=== PATIENT | female | born 1940 | race Two or more races ===

== ENCOUNTER → 2020-06-15 13:18 | Outpatient (BNVA) | payer MEDICARE, SELFPAY | PROVIDERS: PCP Internal Medicine; Referring Provider Internal Medicine; Visit Provider Internal Medicine | DX: J44.9 Chronic obstructive pulmonary disease, unspecified (principal); J98.4 Other disorders of lung; Z79.899 Other long term (current) drug therapy | CPT/HCPCS: 99212 ==

== ENCOUNTER 2020-11-04 17:37 | Emergency (ER) | payer MEDICARE, SELFPAY ==
--- NOTE | ~2020-11-04 | XR_ITS ---
EXAMINATION: XR RIBS, LEFT CLINICAL INFORMATION: Fall with rib pain COMPARISON: Chest radiograph 01/15/2019 TECHNIQUE: 3 views of the left ribs were obtained. FINDINGS: The lungs are clear. Heart size is normal. Cardiomediastinal silhouette is stable. No acute displaced rib fractures. Cholecystectomy clips. Calcifications aortic knob. XR/XR ribs LT min 3V w CXR1V IMPRESSION: No radiographic evidence of acute displaced rib fracture.
[2020-11-04 18:12] VITALS: PULSE 63; RESP 16; TEMP 36.6; O2SAT 96; BMI 30.7
--- NOTE | 2020-11-04 19:48 | ED.FALL ---
HPI - Fall General Chief Complaint: Fall Stated Complaint: SIDE PAIN (FALL) Time Seen by Provider: 11/04/20 19:46 Source: patient Mode of arrival: ambulatory Limitations: no limitations History of Present Illness HPI Narrative: States she got up out of bed to answer a phone call she was turning and lost her footing fell onto her left side hitting the left-sided chest on the ground. States pain on the left upper aspect of the chest. Denies any other injury, no prodromal symptoms, head or neck injury. MD complaint: fall Fall from: standing Fall witnessed: yes, by family Place fall occurred: home Loss of consciousness: none Prolonged down time: no Symptoms prior to fall: none Context: tripped/slipped Location of injury: chest Related Data Home Medications Medication Instructions Recorded Confirmed abatacept 125 mg/mL subcutaneous mg SUBCUT .monthly ml 06/15/20 auto-injector albuterol sulfate 2.5 mg INHALATION Q4-6H PRN 06/15/20 albuterol sulfate 90 mcg/actuation 0 mcg INHALATION 06/15/20 aerosol inhaler alcohol swabs 0 pad TOPICAL 06/15/20 aspirin 81 mg tablet,delayed 81 mg PO DAILY 06/15/20 release blood sugar diagnostic #10 ea 06/15/20 cetirizine 10 mg tablet 10 mg PO DAILY 06/15/20 chlorthalidone 25 mg tablet 0 mg PO 06/15/20 folic acid 1 mg tablet 1 mg PO DAILY 06/15/20 glipizide 10 mg tablet 10 mg PO BID 06/15/20 inhalat.spacing dev,large mask #1 ea 06/15/20 lancets 30 gauge #100 ea 06/15/20 magnesium oxide 400 mg (241.3 mg 400 mg PO BID 06/15/20 magnesium) tablet metformin 1,000 mg tablet 1,000 mg PO BID 06/15/20 methotrexate sodium 2.5 mg tablet 20 mg PO QWEEK 06/15/20 omeprazole 20 mg capsule,delayed 20 mg PO DAILY 06/15/20 release omeprazole 20 mg tablet,delayed 20 mg PO DAILY 06/15/20 release pravastatin 20 mg tablet mg PO 06/15/20 prednisone 5 mg tablet 5 mg PO DAILY 06/15/20 verapamil 300 mg capsule 24hr 300 mg PO DAILY 06/15/[address],ext.release Previous Rx's Medication Instructions Recorded lidocaine 1 patch TOPICAL Q24H PRN #15 ea 11/04/20 Allergies Allergy/AdvReac Type Severity Reaction Status Date / Time latex [LATEX] Allergy Unknown RASH Verified 06/15/20 13:28 pineapple [PINEAPPLE] Allergy Unknown HIVES Verified 06/15/20 13:28 enalaprilat [From Vasotec] AdvReac Mild Unknown Verified 06/15/20 13:28 Review of Systems Review of Systems: Constitutional: No Weight loss, No Fever, No Chills, No Night Sweats, No Fatigue, No Malaise ENT/Mouth: No Hearing loss, No Ear Pain, No Nasal Congestion, No Sinus Pain, No Hoarseness, No sore throat, No Rhinorrhea, No Swallowing Difficulty Eyes: No Eye Pain, No Swelling, No Redness, No Foreign Body, No Discharge, No Vision Changes Cardiovascular: No Chest Pain, No SOB, No Dyspnea on Exertion, No Orthopnea, No Edema, No Palpitations Respiratory: No Cough, No Sputum, No Wheezing, No Smoke Exposure, No Dyspnea Gastrointestinal: No Nausea, No Vomiting, No Diarrhea, No Constipation, No abdominal Pain, No Hematochezia, No Melena Genitourinary: no irregular bleeding, No Dysuria, No Urinary Frequency, No Hematuria, No Urinary Incontinence, No Urgency, No Flank Pain, No Urinary Flow Changes, No Hesitancy Musculoskeletal: No joint pain, No Myalgias, No Joint Swelling, left-sided chest wall pain. Skin: No Skin Lesions, No rash Neuro: No Weakness, No Numbness, No Paresthesias, No Loss of Consciousness, No Dizziness, No Headache Psych: No Social Issues Heme/Lymph: No Bruising, No Bleeding,No Lymphadenopathy Endocrine: No Polyuria, No Polydipsia, No Temperature Intolerance Yes all other systems are reviewed and are negative FOR[facility] Past Medical History Medical History COPD (chronic obstructive pulmonary disease) Restrictive lung disease Social History Social History Advance Directives: No Advance Directives Information Provided: Yes Physical Exam Vital Signs: Vital Signs: Last Vital Signs Temp 97.9 F 11/04/20 18:12 Pulse 63 11/04/20 18:12 Resp 16 11/04/20 18:12 Pulse Ox 96 04/09/21 18:12 Body Mass Index 30.7 Reviewed Const: General: cooperative and healthy appearing; No acute distress or intoxicated appearing Nutritional Appearance: average body habitus Orientation/consciousness: patient oriented x3 HENMT: Head: Yes normal to inspection Ears: hearing grossly normal bilaterally Eyes: General: appearance normal, both eyes and all related structures Visual Dutta: normal visual dutta by confrontation Neck: Neck: Yes normal visual inspection, No positive Brudzinski's sign, No positive Kernig's sign and No tender Thyroid: Thyroid normal Chest: Chest palpation & inspection: normal inspection of the chest and tenderness costochondral junction Chest/axillae images: 1. TTP, no crepitus, ecchymosis or noticeable injury. Resp: Effort & Inspection: normal respiratory effort Cardio: Jugular venous distension: no JVD GI: Inspection: Yes normal to inspection Percussion: Yes normal to percussion Auscultation: normal bowel sounds : General: Yes no CVA tenderness Back/Spine/Pelvis: Back: no CVA tenderness Skin: General skin exam: no rashes or lesions noted Neuro: General: patient oriented x3 Extrem: General: Yes normal to inspection MDM - Fall Medical Records Attestation: I reviewed the patient's medical records. Lab Data Attestation: I reviewed the patient's lab results. Imaging Data Chest with ribs: Radiologist's impression: [address] [id number] ReportSigned Patient: Leann Almanzar CMR#: [id number]: [id number]/Sex: 80 / FADM Date: 11/04/20Loc: HO.EDAttending Dr: Ordering Physician: Generic ED Physician Date of Service: 11/04/20 Procedure(s): XR ribs LT min 3V w CXR1V Accession Number(s): [id number] cc: Generic ED Physician~ EXAMINATION: XR RIBS, LEFT CLINICAL INFORMATION: Fall with rib pain COMPARISON: Chest radiograph 01/15/2019 TECHNIQUE: 3 views of the left ribs were obtained. FINDINGS: The lungs are clear. Heart size is normal. Cardiomediastinal silhouette is stable. No acute displaced rib fractures. Cholecystectomy clips. Calcifications aortic knob. XR/XR ribs LT min 3V w CXR1V IMPRESSION: No radiographic evidence of acute displaced rib fracture. Dictated By:YARA GONZALES MDSigned By:<Electronically signed by YARA GONZALES MD in OV>11/04/201838 DD/ TD/TT: Asset Protection Manager: SB Discharge Plan Discharge Clinical Impression: Chest wall contusion Patient Disposition: Home, Self-Care Instructions: Fall Prevention for Older Adults (ED), Rib Contusion (ED) Additional Instructions: Warm compresses Gentle stretching Topical pain patches as needed for pain discomfort Tylenol for pain Return if any concerns or worsening symptoms Home safety as reviewed Thank you Prescriptions: New lidocaine 4 % adhesive patch,medicated 1 patch topical Q24H PRN (Reason: pain) Qty: 15 RF: 0 No Action (DME) lancets 30 gauge misc See Rx Instructions ea .ROUTE .MEDSUPPLY Qty: 100 RF: 0 alcohol swabs Pads, Medicated 0 pad topical RF: 0 pravastatin 20 mg tablet PO RF: 0 folic acid 1 mg tablet 1 mg PO DAILY RF: 0 verapamil 300 mg capsule, [address] 300 mg PO DAILY RF: 0 metformin 1,000 mg tablet 1,000 mg PO BID RF: 0 methotrexate sodium 2.5 mg tablet 20 mg PO QWEEK RF: 0 magnesium oxide 400 mg (241.3 mg magnesium) tablet 400 mg PO BID RF: 0 aspirin 81 mg tablet,delayed release (DR/EC) 81 mg PO DAILY RF: 0 chlorthalidone 25 mg tablet 0 mg PO RF: 0 prednisone 5 mg tablet 5 mg PO DAILY RF: 0 glipizide 10 mg tablet 10 mg PO BID RF: 0 cetirizine 10 mg tablet 10 mg PO DAILY RF: 0 (DME) Procare Spacer With Adult Mask Spacer See Rx Instructions ea .ROUTE .MEDSUPPLY Qty: 1 RF: 0 albuterol sulfate 90 mcg/actuation HFA aerosol inhaler 0 mcg inhalation RF: 0 omeprazole 20 mg tablet,delayed release (DR/EC) 20 mg PO DAILY RF: 0 (DME) FreeStyle Lite Strips Strip See Rx Instructions ea Not Applicable .MEDSUPPLY Qty: 10 RF: 0 omeprazole 20 mg capsule,delayed release(DR/EC) 20 mg PO DAILY RF: 0 albuterol sulfate 2.5 mg /3 mL (0.083 %) solution for nebulization 2.5 mg inhalation Q4-6H PRNRF: 0 abatacept 125 mg/mL auto-injector subcut .monthly RF: 0 Referrals: Britney Lindsey DO [Primary Care Provider] - 1 week
[2020-11-04 20:06] VITALS: BP 140/51; PULSE 55; RESP 17; O2SAT 97
[2020-11-04] MEDS: Acetaminophen 325 MG TABLET 650 MG PO (20:09)
[2020-11-04] MEDS: Lidocaine 4 % Patch ADH..PATCH 1 PATCH TRANSDERMA (20:09)
== END 2020-11-04 20:19 | disposition home or self-care (01) ==
PROVIDERS: Emergency Provider Internal Medicine; PCP Internal Medicine
DX: S20.212A Contusion of left front wall of thorax, initial encounter (principal); W01.0XXA Fall on same level from slipping, tripping and stumbling without subsequent striking against object, initial encounter; Y93.89 Activity, other specified; Y92.013 Bedroom of single-family (private) house as the place of occurrence of the external cause; Y99.9 Unspecified external cause status
CPT/HCPCS: 71101; 99283; 99284

== ENCOUNTER → 2020-12-20 13:22 | Outpatient (BNVA) | payer MEDICARE, SELFPAY | PROVIDERS: PCP Internal Medicine; Visit Provider Internal Medicine | DX: J44.9 Chronic obstructive pulmonary disease, unspecified (principal); J98.4 Other disorders of lung | CPT/HCPCS: 99212 ==

== ENCOUNTER → 2021-02-14 13:55 | Outpatient (BNV) | payer MEDICARE, SELFPAY | PROVIDERS: PCP Internal Medicine; Visit Provider Internal Medicine | DX: D47.1 Chronic myeloproliferative disease (principal); J98.4 Other disorders of lung; D50.9 Iron deficiency anemia, unspecified | CPT/HCPCS: 99213; 99214; G2211 ==

== ENCOUNTER 2021-02-18 16:58 | Emergency (ER) | payer MEDICARE, SELFPAY ==
--- NOTE | ~2021-02-18 | XR_ITS ---
EXAMINATION: XR SHOULDER, LEFT CLINICAL INFORMATION: Shoulder pain following trauma in a fall COMPARISON: Rib radiographs 11/04/2020 TECHNIQUE: AP external rotation, Grashey, and scapular Y views of the left shoulder. FINDINGS: There is no fracture or dislocation. The glenohumeral joint appears intact. There is degenerative change at the acromioclavicular joint. The periarticular soft tissues appear unremarkable. There is mottled lucency through the proximal and mid shaft of the humerus which appears different from other osseous structures and more pronounced than on prior radiographic examination. XR/XR shoulder LT min 2V IMPRESSION: No fracture or dislocation. Mottled lucency through the shaft of the left humerus is suspicious for a progressive infiltrative process. Clinical correlation is recommended. Further evaluation by bone scan is suggested.
--- NOTE | ~2021-02-18 | XR_ITS ---
EXAMINATION: XR CHEST CLINICAL INFORMATION: Pain. COMPARISON: Chest radiograph dated 01/15/2018. TECHNIQUE: Frontal view of the chest was obtained. FINDINGS: Normal lung volumes. No consolidation or pulmonary edema. No pneumothorax or pleural effusion. Cardiomediastinal silhouette within normal limits. No acute osseous abnormality. XR/XR chest 1V IMPRESSION: Clear lungs. No consolidation.
[2021-02-18 17:34] VITALS: BP 131/53; PULSE 60; RESP 18; TEMP 35.6; O2SAT 98; BMI 32.7
[2021-02-18 18:48] VITALS: BP 134/78; PULSE 64; RESP 18; TEMP 36.4; O2SAT 98
--- NOTE | 2021-02-18 19:00 | PC.NURSE ---
pt was able to transfer from wheelchair to bed without difficulty with help of daughter.
--- NOTE | 2021-02-18 20:07 | ED_ITS ---
HPI - General Adult General Chief complaint: Fall Stated complaint: sholder pain Time Seen by Provider: 02/18/21 19:20 History of Present Illness HPI narrative: Patient complains of left shoulder and left upper back and trapezius pain for several weeks, patient had a trip and fall onto her left side 3 days ago, but the pain had been going for several weeks before that. The pain did get worse after the fall, there are no other symptoms no numbness no weakness no headache no chest pain no neck pain, the fall at home was a simple trip and fall where she remembers everything and never had preceding dizziness she did not hit her head no loss of consciousness no chest pain no palpitation no fainting Related Data Home Medications Medication Instructions Recorded Confirmed abatacept 125 mg/mL subcutaneous 125 mg SUBCUT .monthly ml 06/15/20 02/14/21 auto-injector albuterol sulfate 2.5 mg INHALATION Q4-6H PRN 06/15/20 02/14/21 alcohol swabs 1 pad TOPICAL DAILY 06/15/20 02/14/21 aspirin 81 mg tablet,delayed 81 mg PO DAILY 06/15/20 02/14/21 release blood sugar diagnostic #10 ea 06/15/20 02/14/21 cetirizine 10 mg tablet 10 mg PO DAILY 06/15/20 02/14/21 folic acid 1 mg tablet 1 mg PO DAILY 06/15/20 02/14/21 glipizide 10 mg tablet 10 mg PO BID 06/15/20 02/14/21 inhalat.spacing dev,large mask #1 ea 06/15/20 02/14/21 lancets 30 gauge #100 ea 06/15/20 02/14/21 magnesium oxide 400 mg (241.3 mg 400 mg PO BID 06/15/20 02/14/21 magnesium) tablet metformin 1,000 mg tablet 1,000 mg PO BID 06/15/20 02/14/21 methotrexate sodium 2.5 mg tablet 20 mg PO QWEEK 06/15/20 02/14/21 omeprazole 20 mg capsule,delayed 20 mg PO DAILY 06/15/20 02/14/21 release prednisone 5 mg tablet 5 mg PO DAILY 06/15/20 02/14/21 verapamil 300 mg capsule 24hr 300 mg PO DAILY 06/15/20 02/14/[address],ext.release albuterol sulfate 90 mcg/actuation 2 inh INHALATION Q6-8H PRN g 12/20/20 02/14/21 aerosol inhaler chlorthalidone 25 mg tablet 25 mg PO DAILY tab 12/20/20 02/14/21 pravastatin 20 mg tablet 20 mg PO DAILY tab 12/20/20 02/14/21 Previous Rx's Medication Instructions Recorded acetaminophen 1,000 mg PO QID PRN #30 tab 02/18/21 lidocaine 1 patch TOPICAL DAILY PRN #15 ea 02/18/21 Allergies Allergy/AdvReac Type Severity Reaction Status Date / Time latex [LATEX] Allergy Unknown RASH Verified 12/20/20 13:31 pineapple [PINEAPPLE] Allergy Unknown HIVES Verified 12/20/20 13:31 enalaprilat [From Vasotec] AdvReac Mild Unknown Verified 12/20/20 13:31 Review of Systems Review of Systems: Positive for left shoulder pain Negatives are no fever no chills no dizziness no weakness no fainting no feeling faint no headache no head injury no neck pain no numbness weakness or tingling no chest pain no shortness of breath no abdominal pain no nausea vomiting no skin rash Yes all other systems are reviewed and are negative [facility] Past Medical History Source: nursing notes reviewed Medical History COPD (chronic obstructive pulmonary disease) Restrictive lung disease Social History Social History Advance Directives: No Advance Directives Information Provided: No Physical Exam Vital Signs: Vital Signs: Last Vital Signs Temp 97.6 F 02/18/21 18:48 Pulse 64 02/18/21 18:48 Resp 18 02/18/21 18:48 BP 134/78 02/18/21 18:48 Pulse Ox 98 02/18/21 18:48 Body Mass Index 32.7 General appearance is no acute distress, calm and cooperative Head is normocephalic atraumatic The neck is supple and nontender The chest is clear to auscultation bilateral with symmetrical full equal breath sounds Heart no murmur auscultated Abdomen soft nontender Extremities there is tenderness to the anterior left shoulder and the deltoid area as well as the posterior shoulder area, skin is normal, there is no rash no redness no wound, motor and sensation are intact and symmetrical distal, neurovascular intact distal Course Course Course Narrative: X-ray of the chest was normal X-ray of the left shoulder we had concerning lucencies that were concerning for possible malignancy and this was discussed at length with the patient and her daughter who go to [facility] for primary care They will follow on Saturday with [place] for necessary further evaluation and they are informed if for some reason they cannot be seen by their primary doctor that they can return to the ER in we will try to facilitate some other follow up They are aware that this should be seen and evaluated next week at the latest Discharge Plan Discharge Clinical Impression: Mass of joint of left shoulder Patient Disposition: Home, Self-Care Additional Instructions: X-ray was concerning for abnormalities in the joint which could be a cancer in the bone It is very important follow closely with primary doctor early next week for referral, and further evaluation to make a diagnosis Return to ER any time for any worse condition or concerns If your doctor has left the practice and it is impossible for you to be followed there and you cannot get an appointment with primary care doctor return to the ER next week during business hours and we will see if we can arrange follow-up IT IS VERY IMPORTANT TO FOLLOW-UP NEXT WEEK TO INITIATE EVALUATION FOR POSSIBLE CANCER Prescriptions: New acetaminophen 500 mg tablet 1,000 mg PO QID PRN (Reason: pain) Qty: 30 RF: 0 lidocaine 5 % adhesive patch,medicated 1 patch topical DAILY PRN (Reason: Left shoulder pain) Qty: 15 RF: 0 No Action (DME) lancets 30 gauge misc See Rx Instructions ea .ROUTE .MEDSUPPLY Qty: 100 RF: 0 alcohol swabs Pads, Medicated 1 pad topical DAILY RF: 0 folic acid 1 mg tablet 1 mg PO DAILY RF: 0 verapamil 300 mg capsule, [address] 300 mg PO DAILY RF: 0 metformin 1,000 mg tablet 1,000 mg PO BID RF: 0 methotrexate sodium 2.5 mg tablet 20 mg PO QWEEK RF: 0 magnesium oxide 400 mg (241.3 mg magnesium) tablet 400 mg PO BID RF: 0 aspirin 81 mg tablet,delayed release (DR/EC) 81 mg PO DAILY RF: 0 prednisone 5 mg tablet 5 mg PO DAILY RF: 0 glipizide 10 mg tablet 10 mg PO BID RF: 0 cetirizine 10 mg tablet 10 mg PO DAILY RF: 0 (DME) Procare Spacer With Adult Mask Spacer See Rx Instructions ea .ROUTE .MEDSUPPLY Qty: 1 RF: 0 (DME) FreeStyle Lite Strips Strip See Rx Instructions ea Not Applicable .MEDSUPPLY Qty: 10 RF: 0 omeprazole 20 mg capsule,delayed release(DR/EC) 20 mg PO DAILY RF: 0 albuterol sulfate 2.5 mg /3 mL (0.083 %) solution for nebulization 2.5 mg inhalation Q4-6H PRN (Reason: Wheezing) RF: 0 abatacept 125 mg/mL auto-injector 125 mg subcut .monthly RF: 0 albuterol sulfate 90 mcg/actuation HFA aerosol inhaler 2 inh inhalation Q6-8H PRN (Reason: Wheezing) RF: 0 chlorthalidone 25 mg tablet 25 mg PO DAILY RF: 0 pravastatin 20 mg tablet 20 mg PO DAILY RF: 0
[2021-02-18] MEDS: Lidocaine 4 % Patch ADH..PATCH 1 PATCH TRANSDERMA (20:55)
[2021-02-18] MEDS: Acetaminophen 325 MG TABLET 975 MG PO (20:55)
== END 2021-02-18 21:02 | disposition home or self-care (01) ==
PROVIDERS: Emergency Provider Emergency Medicine; PCP Internal Medicine
DX: M25.812 Other specified joint disorders, left shoulder (principal); M25.512 Pain in left shoulder
CPT/HCPCS: 71045; 73030; 99283

== ENCOUNTER 2021-02-24 07:50 | Outpatient (REF) | payer MEDICARE, SELFPAY | END 2021-02-24 07:51 | disposition home or self-care (01) | LOC: HO.MDS 07:50 | PROVIDERS: PCP Internal Medicine; Visit Provider Internal Medicine | DX: D50.9 Iron deficiency anemia, unspecified (principal) | CPT/HCPCS: 96365; 96366; J1200; J1750; Q0163 ==

== ENCOUNTER 2021-06-15 12:20 | Emergency (ER) | payer MEDICARE, SELFPAY ==
--- NOTE | ~2021-06-15 | US_ITS ---
EXAMINATION: US VENOUS WITH DOPPLER UPPER EXTREMITY, LEFT CLINICAL INFORMATION: Left arm pain and edema COMPARISON: None TECHNIQUE: Ultrasound of the upper extremity is performed using compression sonography and color and pulse Doppler flow with assessment of augmentation of flow. There is also imaging and Doppler assessment of the jugular and subclavian veins. Spectral analysis with color-flow imaging is performed. FINDINGS: Respiratory variation, normal compression, and augmented flow are noted throughout the upper extremity including the axillary, brachial, and cubital with limited evaluation of radial and ulnar veins. There is normal flow in the internal jugular and subclavian veins. There is no visible deep or superficial thrombophlebitis. The cephalic and basilic veins were not identified. If the patient's symptoms progress, a followup ultrasound in 5 -7 days might be of value to exclude proximal propagation from a nonvisualized distal arm vein. US/US venous duplex UE LT IMPRESSION: No acute DVT demonstrated in the left arm with limited evaluation of the ulnar and radial veins with nonvisualization of cephalic and basilic veins.
--- NOTE | ~2021-06-15 | XR_ITS ---
EXAMINATION: XR HAND WRIST, LEFT CLINICAL INFORMATION: Pain and swelling left wrist. COMPARISON: None TECHNIQUE: 3 views of the combined left hand and wrist in large [id number] images are obtained along with a navicular view of the wrist for a total of 4 views. FINDINGS: There is generalized osteopenia. The ulnar variance is neutral. There is mild narrowing proximal radial carpal compartment with chondrocalcinosis in the region of the triangular fibrocartilage and likely involving the lunotriquetral ligament. There is no fracture or dislocation. No widening of the carpal spaces to suggest ligamentous ligament disruption. No focal erosive change. The pronator quadratus fat pad appears normal. The hand shows no fracture or dislocation. The MCP and interphalangeal joints show no erosive changes. XR/XR hand wrist LT IMPRESSION: 1. Generalized osteopenia. No fracture or dislocation. 2. 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 No erosive change.
[2021-06-15 13:10] VITALS: BP 131/59; PULSE 64; RESP 16; TEMP 36.6; O2SAT 98; BMI 28.3
--- NOTE | 2021-06-15 14:45 | ED.GENADULT ---
HPI - General Adult General Chief complaint: General Medical Stated complaint: sore mouth, unable to eat and swallow, wrist pain Time Seen by Provider: 06/15/21 13:46 Source: patient and family Mode of arrival: ambulatory Limitations: language barrier ([place]an-speaking) History of Present Illness HPI narrative: 80-year-old female with a past medical history of COPD, restrictive lung disease and arthritis presenting to the ED with complaints of worsening atraumatic left wrist pain over the past few days worse today. She reports that she was having pain in her left shoulder/left elbow for months and she finally obtain a cortisone injection a few weeks ago and her left elbow pain/shoulder pain has completely resolved on own now she has pain to her left wrist and swelling and she is unsure why. She reports that she has not fallen. She has a separate complaint of sores in her mouth that developed over the past few days. Denies any fevers, chills, dizziness, headaches, neck pain/stiffness, sore throat, cough, dental pain, chest pain or shortness of breath, dyspnea on exertion, orthopnea, palpitations, nausea/vomiting/diarrhea, constipation, abdominal pain, back pain, rashes, dysuria, hematuria, abnormal vaginal discharge, recent travel or sick contacts, any estrogen use, history of DVT or PE, usage of any anticoagulation, steroid usage, recent falls or trauma or any other symptoms complaints or concerns at this time. MD complaint: Left wrist pain/swelling and sores in the mouth Onset (ago): day(s) Related Data Home Medications Medication Instructions Recorded Confirmed abatacept 125 mg/mL subcutaneous 125 mg SUBCUT .monthly ml 06/15/20 05/17/21 auto-injector albuterol sulfate 2.5 mg INHALATION Q4-6H PRN 06/15/20 05/17/21 alcohol swabs 1 pad TOPICAL DAILY 06/15/20 05/17/21 aspirin 81 mg tablet,delayed 81 mg PO DAILY 06/15/20 05/17/21 release blood sugar diagnostic #10 ea 06/15/20 05/17/21 folic acid 1 mg tablet 1 mg PO DAILY 06/15/20 05/17/21 glipizide 10 mg tablet 10 mg PO BID 06/15/20 05/17/21 inhalat.spacing dev,large mask #1 ea 06/15/20 05/17/21 lancets 30 gauge #100 ea 06/15/20 05/17/21 magnesium oxide 400 mg (241.3 mg 400 mg PO BID 06/15/20 05/17/21 magnesium) tablet metformin 1,000 mg tablet 1,000 mg PO BID 06/15/20 05/17/21 methotrexate sodium 2.5 mg tablet 20 mg PO QWEEK 06/15/20 05/17/21 omeprazole 20 mg capsule,delayed 20 mg PO DAILY 06/15/20 05/17/21 release prednisone 5 mg tablet 5 mg PO DAILY 06/15/20 05/17/21 verapamil 300 mg capsule 24hr 300 mg PO DAILY 06/15/20 05/17/[address],ext.release albuterol sulfate 90 mcg/actuation 2 inh INHALATION Q6-8H PRN g 12/20/20 05/17/21 aerosol inhaler chlorthalidone 25 mg tablet 25 mg PO DAILY tab 12/20/20 05/17/21 pravastatin 20 mg tablet 20 mg PO DAILY tab 12/20/20 05/17/21 Previous Rx's Medication Instructions Recorded acetaminophen 500 mg tablet 1,000 mg PO QID PRN #30 tab 02/18/21 ferrous sulfate 325 mg (65 mg 325 mg PO BID #60 tab 05/17/21 iron) tablet (Otf-Time) colchicine 0.6 mg capsule 0.6 mg PO BID 5 Days #10 cap 06/15/21 nystatin 100,000 unit/mL oral 100,000 unit PO DAILY 14 Days #473 06/15/21 suspension ml Allergies Allergy/AdvReac Type Severity Reaction Status Date / Time latex [LATEX] Allergy Unknown RASH Verified 06/15/21 13:15 pineapple [PINEAPPLE] Allergy Unknown HIVES Verified 06/15/21 13:15 enalaprilat [From Vasotec] AdvReac Mild Unknown Verified 06/15/21 13:15 Review of Systems Review of Systems: Constitutional : No Weight loss, No Fever, No Chills, No Night Sweats, No Fatigue, No Malaise ENT/Mouth : + mouth sores, No Hearing loss, No Ear Pain, No Nasal Congestion, No Sinus Pain, No Hoarseness, No sore throat, No Rhinorrhea, No Swallowing Difficulty Eyes: No Eye Pain, No Swelling, No Redness, No Foreign Body, No Discharge, No Vision Changes Cardiovascular : No Chest Pain, No SOB, No Dyspnea on Exertion, No Orthopnea, No Edema, No Palpitations Respiratory : No Cough, No Sputum, No Wheezing, No Smoke Exposure, No Dyspnea Gastrointestinal : No Nausea, No Vomiting, No Diarrhea, No Constipation, No abdominal Pain, No Hematochezia, No Melena Genitourinary : no irregular bleeding, No Dysuria, No Urinary Frequency, No Hematuria, No Urinary Incontinence, No Urgency, No Flank Pain, No Urinary Flow Changes, No Hesitancy Musculoskeletal : + left wrist joint pain/swelling, No Myalgias Skin : No Skin Lesions, No rash Neuro : No Weakness, No Numbness, No Paresthesias, No Loss of Consciousness, No Dizziness, No Headache Psych : No Anxiety/Panic, No Depression, No SI/HI/AH/VH, No Social Issues, Heme/Lymph: No Bruising, No Bleeding,No Lymphadenopathy Endocrine : No Polyuria, No Polydipsia, No Temperature Intolerance Yes all other systems are reviewed and are negative [facility] Past Medical History Attestation statement: The following information was validated with the patient. Medical History Arthritis COPD (chronic obstructive pulmonary disease) Restrictive lung disease Surgical History Hx of cholecystectomy Social History Social History Alcohol intake: former Patient Tobacco Use Status: Never used Tobacco Cigarette Packs Per Day: 1 Advance Directives: No Advance Directives Information Provided: Yes Physical Exam Vital Signs: Vital Signs: Last Vital Signs Temp 98 F 06/15/21 13:10 Pulse 64 06/15/21 13:10 Resp 16 06/15/21 13:10 BP 131/59 L 06/15/21 13:10 Pulse Ox 98 06/15/21 13:10 Body Mass Index 28.3 vital signs have been reviewed as normal and appeared to be correct. Blood pressure 131/59 Heart rate normal. Respiration rate normal. Temperature normal. Oxygen saturation normal. Appearance: Alert. Oriented X3. No acute distress. Head: Normal external exam. Normocephalic. Atraumatic. Eyes: PERRLA. EOMI. Conjunctiva and sclera normal. Eyelids normal. ENT: To the oral mucosa patient is noted to have oral candidiasis with white plaques noted that are easily wiped off. Otherwise pharynx is normal. Uvula midline. Moist mucous membranes. Neck: Normal inspection. Neck supple. FROM. CVS: Normal heart rate and rhythm. Respiratory: No respiratory distress. Painless inspiration. Skin: Skin warm and dry. Normal skin color. Normal skin turgor. No rashes/lesions/lacerations noted. Extremities: Patient with TTp of left wrist on volar and dorsal aspect c mild soft tissue swelling. No erythema or signs of infections. No flutuance or induration noted. Pt has FROM of left wrist/hand/finger joints. No obvious ligamentous or tendon injury noted. No upper and lower extremity edema noted. Otherwise all Extremities exhibit normal range of motion and nontender. Neuro: Oriented X 3. No motor deficit. No sensory deficit. Reflexes normal. Normal steady gait. No focal neuro deficits noted. Vascular: + radial pulses/+ 2 distal pedal pulses/+2 dorsalis pedis b/l. Normal cap refill. No cyanosis noted to upper extremity nails and lower extremity toes nails. Course Course Course Narrative: 13:55pm - 80-year-old female with a past medical history of COPD, restrictive lung disease and arthritis presenting to the ED with complaints of worsening atraumatic left wrist pain over the past few days worse today. She reports that she was having pain in her left shoulder/left elbow for months and she finally obtain a cortisone injection a few weeks ago and her left elbow pain/shoulder pain has completely resolved on own now she has pain to her left wrist and swelling and she is unsure why. She reports that she has not fallen. She has a separate complaint of sores in her mouth that developed over the past few days. Therefore at this time will obtain an ultrasound to evaluate for possible DVT of left upper extremity and x-ray of left wrist. Will also DC home with nystatin for oral candidiasis re-evaluate. Patient family at bedside understand agree this plan. Reevaluation(s) Reevaluation #1: - ultrasound negative for DVT. 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 No erosive changes. Therefore at this time will DC home with symptomatic treatment nystatin for her oral candidiasis and instructions to follow-up with PCP and to return if any new or worsening symptoms. Patient understands agrees with this plan. Time: 15:37 Medical Decision Making Medical Records Medical records reviewed: Yes I reviewed the patient's medical records. Imaging Data Left hand/wrist x-ray: Attestation: I personally reviewed and interpreted this imaging study as follows: Radiologist's impression: FINDINGS: There is generalized osteopenia. The ulnar variance is neutral. There is mild narrowing proximal radial carpal compartment with chondrocalcinosis in the region of the triangular fibrocartilage and likely involving the lunotriquetral ligament. There is no fracture or dislocation. No widening of the carpal spaces to suggest ligamentous ligament disruption. No focal erosive change. The pronator quadratus fat pad appears normal. The hand shows no fracture or dislocation. The MCP and interphalangeal joints show no erosive changes.? XR/XR hand wrist LT IMPRESSION: ? 1. Generalized osteopenia. No fracture or dislocation. 2. 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 No erosive change.? Venous duplex ultrasound of upper extremity left-sided: Attestation: I personally reviewed and interpreted this imaging study as follows: Radiologist's impression: FINDINGS: Respiratory variation, normal compression, and augmented flow are noted throughout the upper extremity including the axillary, brachial, and cubital with limited evaluation of radial and ulnar veins. There is normal flow in the internal jugular and subclavian veins. There is no visible deep or superficial thrombophlebitis. The cephalic and basilic veins were not identified. If the patient's symptoms progress, a followup ultrasound in 5 -7 days might be of value to exclude proximal propagation from a nonvisualized distal arm vein. US/US venous duplex UE LT IMPRESSION: No acute DVT demonstrated in the left arm with limited evaluation of the ulnar and radial veins with nonvisualization of cephalic and basilic veins. Discharge Plan Discharge Clinical Impression: Chondrocalcinosis, Candidiasis of mouth Patient Disposition: Home, Self-Care Instructions: Oral Candidiasis (ED), Pseudogout (ED) Prescriptions: New colchicine 0.6 mg capsule 0.6 mg PO BID 5 Days Qty: 10 RF: 0 nystatin 100,000 unit/mL suspension 100,000 unit PO DAILY 14 Days Qty: 473 RF: 0 No Action ferrous sulfate [Otf-Time] 325 mg (65 mg iron) Tablet 325 mg PO BID Qty: 60 RF: 3 acetaminophen 500 mg tablet 1,000 mg PO QID PRN (Reason: pain) Qty: 30 RF: 0 (DME) lancets 30 gauge misc See Rx Instructions ea .ROUTE .MEDSUPPLY Qty: 100 RF: 0 alcohol swabs Pads, Medicated 1 pad topical DAILY RF: 0 folic acid 1 mg tablet 1 mg PO DAILY RF: 0 verapamil 300 mg capsule, [address] 300 mg PO DAILY RF: 0 metformin 1,000 mg tablet 1,000 mg PO BID RF: 0 methotrexate sodium 2.5 mg tablet 20 mg PO QWEEK RF: 0 magnesium oxide 400 mg (241.3 mg magnesium) tablet 400 mg PO BID RF: 0 aspirin 81 mg tablet,delayed release (DR/EC) 81 mg PO DAILY RF: 0 prednisone 5 mg tablet 5 mg PO DAILY RF: 0 glipizide 10 mg tablet 10 mg PO BID RF: 0 (DME) Procare Spacer With Adult Mask Spacer See Rx Instructions ea .ROUTE .MEDSUPPLY Qty: 1 RF: 0 (DME) FreeStyle Lite Strips Strip See Rx Instructions ea Not Applicable .MEDSUPPLY Qty: 10 RF: 0 omeprazole 20 mg capsule,delayed release(DR/EC) 20 mg PO DAILY RF: 0 albuterol sulfate 2.5 mg /3 mL (0.083 %) solution for nebulization 2.5 mg inhalation Q4-6H PRN (Reason: Wheezing) RF: 0 abatacept 125 mg/mL auto-injector 125 mg subcut .monthly RF: 0 albuterol sulfate 90 mcg/actuation HFA aerosol inhaler 2 inh inhalation Q6-8H PRN (Reason: Wheezing) RF: 0 chlorthalidone 25 mg tablet 25 mg PO DAILY RF: 0 pravastatin 20 mg tablet 20 mg PO DAILY RF: 0 Referrals: Teofilo Moreno MD [Primary Care Provider] - 2 days Print Language: [place]an
== END 2021-06-15 16:08 | disposition home or self-care (01) ==
PROVIDERS: Emergency Provider Emergency Medicine Emergency Medical Services; PCP Internal Medicine
DX: M11.232 Other chondrocalcinosis, left wrist (principal); B37.0 Candidal stomatitis; M25.532 Pain in left wrist; M25.432 Effusion, left wrist
CPT/HCPCS: 29125; 73110; 73130; 93971; 99283; 99284

== ENCOUNTER → 2021-06-28 13:19 | Outpatient (BNVA) | payer MEDICARE, SELFPAY | PROVIDERS: PCP Internal Medicine; Visit Provider Internal Medicine | DX: J44.9 Chronic obstructive pulmonary disease, unspecified (principal); J98.4 Other disorders of lung | CPT/HCPCS: 99212 ==

== ENCOUNTER → 2022-02-15 13:24 | Outpatient (BNVA) | payer MEDICARE, SELFPAY | PROVIDERS: PCP Internal Medicine; Visit Provider Internal Medicine | DX: J44.9 Chronic obstructive pulmonary disease, unspecified (principal); J98.4 Other disorders of lung | CPT/HCPCS: 99212 ==

== ENCOUNTER 2022-04-27 08:55 | Emergency (ER) | payer MEDICARE, SELFPAY ==
--- NOTE | ~2022-04-27 | CT_ITS ---
EXAMINATION: NONCONTRAST HEAD CT NONCONTRAST CERVICAL SPINE CT INDICATION INFORMATION: Fall, pain COMPARISON: 06/09/2018 TECHNIQUE: Separate noncontrast CT examinations of the head and cervical spine were performed. Coronal head CT images and coronal and sagittal cervical spine images were created at the technologist workstation. DLP: 1879 mGy-cm DOSE LOWERING TECHNIQUES: This CT examination was performed using dose optimization techniques as appropriate, variously including the following: - Automated exposure control - Adjustment of mA and/or kV according to patient size (this includes techniques or standardized protocols for targeted exams were dose is matched to indication/reason for exam; i.e. extremities or head) - Use of iterative reconstruction technique FINDINGS: Head: There is no evidence of acute intracranial hemorrhage or territorial infarction. No abnormal mass-effect or midline shift is seen. Hua to white matter differentiation is well preserved. No extra-axial fluid collections are identified. The ventricles are normal in size. There is mild to moderate periventricular white matter hypoattenuation consistent with chronic small vessel ischemic disease. Mild volume loss is noted. The osseous structures and soft tissues are normal. The mastoid air cells and visualized portions of the paranasal sinuses are well-aerated. Cervical spine: There is anatomic alignment of the vertebral bodies and posterior elements. Vertebral body heights are maintained. There is diffuse disc space narrowing throughout the mid and lower cervical spine with associated degenerative endplate osteophytes. No evidence of acute fracture. No prevertebral soft tissue swelling. Visualized portions of the lung apices demonstrating scarring. The thyroid gland is unremarkable. CT/CT cervical spine wo IV con IMPRESSION: No acute findings identified in the head or cervical spine. Chronic appearing and degenerative changes as noted above.
--- NOTE | ~2022-04-27 | CT_ITS ---
EXAM: NONCONTRAST CT OF THE CHEST; NONCONTRAST CT OF THE ABDOMEN AND PELVIS INDICATION: Fall, left-sided pain COMPARISON: None TECHNIQUE: No IV contrast was utilized. Multidetector helical imaging was performed through the chest, abdomen, and pelvis. Coronal and sagittal reformatted images were created at the technologist workstation. DOSE LOWERING TECHNIQUES: This CT examination was performed using dose optimization techniques as appropriate, variously including the following: - Automated exposure control - Adjustment of mA and/or kV according to patient size (this includes techniques or standardized protocols for targeted exams were dose is matched to indication/reason for exam; i.e. extremities or head) - Use of iterative reconstruction technique DLP: 1879 mGy-cm FINDINGS: Chest: There is upper lobe predominant emphysema and scarring. There is dependent atelectasis bilaterally. No acute-appearing consolidation is seen. No pneumothorax or pleural effusion. The visualized thyroid gland is unremarkable. No appreciable mediastinal lymphadenopathy on this noncontrast exam. Borderline cardiomegaly with trace pericardial effusion. Coronary artery calcifications are present. There is atherosclerotic calcification along the aorta. No axillary lymphadenopathy is present. There are minimally displaced fractures of the lateral left ninth and 10th ribs. Degenerative changes are noted in the spine. Abdomen/Pelvis: The liver is homogeneous in attenuation without intrahepatic biliary ductal dilatation. Status post cholecystectomy. The unenhanced spleen, pancreas, and adrenal glands are within normal limits. No hydronephrosis. Scattered small left renal calculi noted. No obstructing ureteral calculi are present. The urinary bladder is minimally distended and grossly unremarkable. The uterus and adnexa are unremarkable. Scattered colonic diverticulosis. No evidence of bowel obstruction or significant wall thickening. The appendix is unremarkable. No free fluid or free air is identified. There is atherosclerotic calcification along the aorta. No retroperitoneal or pelvic lymphadenopathy is seen. Degenerative changes are noted in the spine. CT/CT abdomen pelvis wo IV con IMPRESSION: 1. Minimally displaced lateral left ninth and 10th rib fractures. No additional acute traumatic findings identified in the chest, abdomen, or pelvis. 2. Upper lobe predominant pulmonary emphysema and scarring.
[2022-04-27 09:00] VITALS: BP 173/49; PULSE 59; RESP 16; TEMP 36.6; O2SAT 94; BMI 31.5
--- NOTE | 2022-04-27 09:03 | ED.GENADULT ---
HPI - General Adult General Chief complaint: Fall Stated complaint: Fall/L side pain Time Seen by Provider: 04/27/22 09:03 Source: patient and family (daughter) Mode of arrival: ambulatory Limitations: no limitations History of Present Illness HPI narrative: Patient is an 81 year old female presenting to the emergency department today with left sided thoracic pain. Patient states that she got up last night to go to the bathroom when she the toilet seat slid and she fell on her left side, striking it on the side of the bathtub. Patient denies hitting her head or having any loss of consciousness. Patient denies any dizziness, lightheadedness, abdominal pain, nausea, vomiting, fever, chills, blurry vision, double vision, loss of vision, chest pain, difficulty breathing, shortness of breath, back pain, night sweats, pain with urination, increased urinary frequency, increased urinary urgency, blood in her urine or stool, syncope or a near syncopal episode, bowel incontinence, bladder incontinence, bowel retention, bladder retention, or any other complaints at this time. Onset (ago): day(s) (1) Location: left (ribs) Radiation: non-radiation Severity: mild Severity scale (1-10): 3 Quality: dull Pain Consistency: constant Relieving factors: none Exacerbating factors: none Associated symptoms: denies other symptoms Treatments prior to arrival: none Related Data Home Medications Medication Instructions Recorded Confirmed albuterol sulfate 2.5 mg/3 mL 2.5 mg inhalation Q4-6H PRN 06/15/20 02/09/22 (0.083 %) solution for nebulization Wheezing alcohol swabs 1 pad topical DAILY 06/15/20 02/09/22 aspirin 81 mg tablet,delayed 81 mg PO DAILY 06/15/20 02/09/22 release blood sugar diagnostic #10 ea 06/15/20 02/09/22 folic acid 1 mg tablet 1 mg PO DAILY 06/15/20 02/09/22 glipizide 10 mg tablet 10 mg PO BID 06/15/20 02/09/22 inhalat.spacing dev,large mask #1 ea 06/15/20 02/09/22 lancets 30 gauge #100 ea 06/15/20 02/09/22 magnesium oxide 400 mg (241.3 mg 400 mg PO BID 06/15/20 02/09/22 magnesium) tablet metformin 1,000 mg tablet 1,000 mg PO BID 06/15/20 02/09/22 omeprazole 20 mg capsule,delayed 20 mg PO DAILY 06/15/20 02/09/22 release prednisone 5 mg tablet 5 mg PO DAILY 06/15/20 02/09/22 verapamil 300 mg capsule 24hr 300 mg PO DAILY 06/15/20 02/09/[address],ext.release albuterol sulfate 90 mcg/actuation 2 inh inhalation Q6-8H PRN Wheezing 12/20/20 02/09/22 aerosol inhaler pravastatin 20 mg tablet 20 mg PO DAILY 12/20/20 02/09/22 Previous Rx's Medication Instructions Recorded acetaminophen 500 mg tablet 1,000 mg PO QID PRN pain #30 tabs 02/18/21 ferrous sulfate 325 mg (65 mg 1 tab PO BID #60 tabs 02/09/22 iron) tablet,delayed release Allergies Allergy/AdvReac Type Severity Reaction Status Date / Time latex [LATEX] Allergy Unknown RASH Verified 02/15/22 13:48 pineapple [PINEAPPLE] Allergy Unknown HIVES Verified 02/15/22 13:48 enalaprilat [From Vasotec] AdvReac Mild Unknown Verified 02/15/22 13:48 Review of Systems Constitutional: Constitutional: Reports no additional constitutional complaints, Denies chills, Denies fever(s) and Denies night sweats Eyes: Eyes: Reports no additional eye complaints, Denies blurry vision, Denies change in vision, Denies diplopia, Denies eye discharge, Denies loss of vision and Denies eye pain ENT: Denies dizziness Cardiovascular: Cardiovascular: Reports no additional cardiovascular complaints, Denies chest pain, Denies lightheadedness, Denies Loss of Consciousness and Denies dyspnea Respiratory: Respiratory: Reports no additional respiratory complaints and Denies dyspnea Gastrointestinal: Gastrointestinal: Reports no additional gastrointestinal complaints, Denies abdominal pain, Denies melena, Denies hematochezia, Denies change in bowel habits and Denies change in stool character Genitourinary: Genitourinary: Denies hematuria, Denies urinary frequency, Denies dysuria, Denies urinary incontinence, Denies urinary hesitancy and Denies urinary urgency Musculoskeletal: Musculoskeletal: Reports no additional musculoskeletal complaints, Denies numbness and Denies tingling Comments: left sided thoracic pain Neurologic: Denies dizziness, Denies loss of vision, Denies numbness and Denies tingling Psychiatric: Psychiatric: Reports no additional psychiatric complaints Endocrine: Endocrine: Reports no additional endocrine complaints Hematologic/Lymphatic: Hematologic/Lymphatic: Reports no additional hematologic/lymphatic complaints Allergic/Immunologic: Allergic/Immunologic: Reports no additional allergic/immunologic complaints [facility] Past Medical History Attestation statement: The following information was validated with the patient. Source: old records reviewed Medical History Arthritis COPD (chronic obstructive pulmonary disease) Restrictive lung disease Surgical History Hx of cholecystectomy Family History Family History Mother Diabetes Maternal Grandmother Diabetes Social History Social History Household Members: Children Housing: Apartment Are you a primary family member caretaker to a significant other at home: No Do you presently have visiting nurse or other home services: No Alcohol intake: former Patient Tobacco Use Status: Never used Tobacco Cigarette Packs Per Day: 1 Advance Directives: Yes Advance Directives Information Provided: Yes Advance Directives on File: No service: No Current occupational status: unemployed Physical Exam ED Vital Signs: Vital Signs - 24 hr 04/27/22 09:00 04/27/22 11:49 Temperature 97.8 F Pulse Rate 59 51 Respiratory Rate 16 16 Blood Pressure 173/49 H 152/56 H Pulse Oximetry 94 97 Oxygen Delivery Method Room Air Room Air BMI result Body Mass Index 31.5 Const General: cooperative, no acute distress, alert and awake Nutritional Appearance: well nourished Orientation/consciousness: patient oriented x3 Limitations: no limitations HENMT Head: Yes normal to inspection and Yes atraumatic Ears: hearing grossly normal bilaterally and external ears normal General nose exam: Normal external nose present, no nasal discharge noted and no epistaxis Face and sinus: Yes normal facial exam, No abrasion and No laceration Mouth: Normal oral and palatal mucosa present, no drooling and no muffled voice Eyes General: appearance normal, both eyes and all related structures Periorbital: periorbital findings normal Eyelids: Yes eyelids normal Conjunctivae: conjunctivae normal Pupils: Equal, round and reactive pupils present EOM: EOMs intact bilaterally Neck Neck: Yes normal visual inspection, Yes full ROM and Yes no lymphadenopathy Chest Other: pain to palpation of the left thorax / ribs Chest palpation & inspection: normal inspection of the chest Resp Effort & Inspection: normal respiratory effort and able to speak in complete sentences Auscultation: clear to auscultation bilaterally Cardio Rate: regular rate Rhythm: regular rhythm GI Inspection: Yes normal to inspection Neuro General: patient oriented x3 and moves all extremities Cranial nerves: Yes Equal, round and reactive pupils present Cognition (Neuro): normal cognition Motor exam (neuro): 5/5 motor strength present throughout Sensory Exam: Normal double simultaneous stimulation for sensation Coordination: [id number] test normal Extrem General: Yes normal to inspection, Yes full ROM and Yes capillary refill normal Psych Appearance: grossly normal Mental Status: mental status grossly normal Affect: normal affect Attitude: cooperative Thought process: Normal thought process present Thought content: Normal thought content present Insight: Good insight present (Psych) Medical Decision Making MDM Narrative Medical decision making narrative: Patient is an 81 year old female presenting to the emergency department today with left sided thoracic pain. Patient's physical exam showed pain to palpation of the left rib cage but was otherwise unremarkable. Patient's blood work was unremarkable. Patient's head, c-spine, and abdomen/pelvis CTs showed no acute process. Patient's chest CT showed minimally displaced lateral left ninth and 10th rib fracture. I explained my physical exam findings as well as all test results to the patient and the patient's daughter. I answered all questions asked by the patient and the patient's daughter. Patient was given an incentive spirometer with incentive spirometry training. I stressed the importance of the patient taking her medication as prescribed. I stressed the importance of the patient following up with her primary care provider. I stressed the importance of the patient returning to the emergency department immediately if her symptoms were to worsen or if she were to develop any dizziness, shortness of breath, difficulty breathing, chest pain, blurry vision, loss of vision, nausea, vomiting, abdominal pain, fever, chills, back pain, or any other complaints. Patient and the patient's daughter verbalized agreement and understanding with this treatment plan and discharge. Medical Records Medical records reviewed: Yes I reviewed the patient's medical records. Lab Data Lab results reviewed: Yes I reviewed the patient's lab results. Result diagrams: 04/27/22 10:24 04/27/22 10:24 Labs: Lab Results 04/27/22 04/27/22 04/27/22 Range/Units 10:24 10:24 10:24 WBC 11.1 H (4.8-10.8) X10*3/uL RBC 3.76 L (4.20-5.50) X10*6/uL Hgb 10.9 L (12.0-16.0) g/dl Hct 34.3 L (37.0-47.0) % MCV 91.2 (80.0-98.0) fL MCH 29.0 (27.0-33.0) pg MCHC 31.8 (31.0-35.0) g/dl RDW 13.7 (11.0-16.0) % Plt Count 245 (160-400) X10*3/uL MPV 10.4 (9.4-12.3) fL Immature Gran % (Auto) 0.5 H (0.0-0.4) % Neut % (Auto) 66.4 (45-73) % Lymph % (Auto) 23.0 (20-40) % [place] % (Auto) 6.4 (2-11) % Eos % (Auto) 3.1 (0-4) % Baso % (Auto) 0.6 (0-2) % Lymph # (Auto) 2.5 (1.2-4.9) X10*3/uL [place] # (Auto) 0.7 (0.1-1.2) X10*3/uL Eos # (Auto) 0.3 (0.0-0.4) X10*3/uL Baso # (Auto) 0.1 (0.0-0.2) X10*3/uL Abs Immat Gran (auto) 0.05 H (0.00-0.03) X10*3/uL Absolute Neuts (auto) 7.3 (2.0-8.3) x10*3/uL Absolute Nucleated RBC 0.000 (0.0-0.012) X10*3/uL Nucleated RBC % (auto) 0.0 (0.0-0.2) /100WBC PT 10.0 (10.0-13.1) SEC INR 0.9 (0.9-1.1) APTT 37.4 H (26.0-36.4) SEC Sodium 143 (135-145) mmol/L Potassium 3.8 D (3.3-5.1) mmol/L Chloride 106 (96-108) mmol/L Carbon Dioxide 25 (22-29) mmol/L Anion Gap 16 (12-20) BUN 20 H (9-16) mg/dL Creatinine 1.13 (0.5-1.4) mg/dL Estim Creat Clear Calc 33.9 Estimated GFR 46 Random Glucose 156 H (60-115) mg/dL Calcium 9.4 D (8.4-10.2) mg/dL Magnesium 1.5 L (1.6-2.6) mg/dL Total Bilirubin 0.4 (0.0-1.0) mg/dL AST 15 (5-31) U/L ALT 9 (0-31) U/L Alkaline Phosphatase 76 (39-117) U/L Total Protein 6.5 (6.5-8.0) g/dL Albumin 3.8 (3.5-5.0) g/dL Imaging Data CT abdomen/pelvic and CT chest: Attestation: I personally reviewed and interpreted this imaging study as follows: My impression: Left sided 8th and 9th rib fractures. Radiologist's impression: EXAM: NONCONTRAST CT OF THE CHEST; NONCONTRAST CT OF THE ABDOMEN AND PELVIS INDICATION: Fall, left-sided pain COMPARISON: None TECHNIQUE: No IV contrast was utilized. Multidetector helical imaging was performed through the chest, abdomen, and pelvis. Coronal and sagittal reformatted images were created at the technologist workstation. DOSE LOWERING TECHNIQUES: This CT examination was performed using dose optimization techniques as appropriate, variously including the following: ?- Automated exposure control ?- Adjustment of mA and/or kV according to patient size (this includes techniques or standardized protocols for targeted exams were dose is matched to indication/reason for exam; i.e. extremities or head) ?- Use of iterative reconstruction technique DLP: 1879 mGy-cm FINDINGS: Chest: There is upper lobe predominant emphysema and scarring. There is dependent atelectasis bilaterally. No acute-appearing consolidation is seen. No pneumothorax or pleural effusion. The visualized thyroid gland is unremarkable. No appreciable mediastinal lymphadenopathy on this noncontrast exam. Borderline cardiomegaly with trace pericardial effusion. Coronary artery calcifications are present. There is atherosclerotic calcification along the aorta. No axillary lymphadenopathy is present. There are minimally displaced fractures of the lateral left ninth and 10th ribs. Degenerative changes are noted in the spine. Abdomen/Pelvis: The liver is homogeneous in attenuation without intrahepatic biliary ductal dilatation. Status post cholecystectomy. The unenhanced spleen, pancreas, and adrenal glands are within normal limits. No hydronephrosis. Scattered small left renal calculi noted. No obstructing ureteral calculi are present. The urinary bladder is minimally distended and grossly unremarkable. The uterus and adnexa are unremarkable. Scattered colonic diverticulosis. No evidence of bowel obstruction or significant wall thickening. The appendix is unremarkable. No free fluid or free air is identified. There is atherosclerotic calcification along the aorta. No retroperitoneal or pelvic lymphadenopathy is seen. Degenerative changes are noted in the spine. CT/CT chest wo IV con IMPRESSION: 1.? Minimally displaced lateral left ninth and 10th rib fractures. No additional acute traumatic findings identified in the chest, abdomen, or pelvis. 2.? Upper lobe predominant pulmonary emphysema and scarring. Dictated By: Sandip Noonan MD Signed By: Electronically signed by Sandip Noonan MD 04/27/[address] head and C-Spine : Attestation: I personally reviewed and interpreted this imaging study as follows: My impression: No acute process. Radiologist's impression: EXAMINATION: NONCONTRAST HEAD CT NONCONTRAST CERVICAL SPINE CT INDICATION INFORMATION: Fall, pain COMPARISON: 06/09/2018 TECHNIQUE: Separate noncontrast CT examinations of the head and cervical spine were performed. Coronal head CT images and coronal and sagittal cervical spine images were created at the technologist workstation. DLP: 1879 mGy-cm DOSE LOWERING TECHNIQUES: This CT examination was performed using dose optimization techniques as appropriate, variously including the following: ?- Automated exposure control ?- Adjustment of mA and/or kV according to patient size (this includes techniques or standardized protocols for targeted exams were dose is matched to indication/reason for exam; i.e. extremities or head) ?- Use of iterative reconstruction technique FINDINGS: Head: There is no evidence of acute intracranial hemorrhage or territorial infarction. No abnormal mass-effect or midline shift is seen. Hua to white matter differentiation is well preserved. No extra-axial fluid collections are identified. The ventricles are normal in size. There is mild to moderate periventricular white matter hypoattenuation consistent with chronic small vessel ischemic disease. Mild volume loss is noted. The osseous structures and soft tissues are normal. The mastoid air cells and visualized portions of the paranasal sinuses are well-aerated. Cervical spine: There is anatomic alignment of the vertebral bodies and posterior elements. Vertebral body heights are maintained. There is diffuse disc space narrowing throughout the mid and lower cervical spine with associated degenerative endplate osteophytes. No evidence of acute fracture. No prevertebral soft tissue swelling. Visualized portions of the lung apices demonstrating scarring. The thyroid gland is unremarkable. CT/CT head/brain wo IV con IMPRESSION: No acute findings identified in the head or cervical spine. Chronic appearing and degenerative changes as noted above. Dictated By: Sandip Noonan MD Signed By: Electronically signed by Sandip Noonan MD 04/27/22 1033 Discharge Plan Discharge Clinical Impression: Closed rib fracture Patient Disposition: Home, Self-Care Instructions: Rib Fracture (ED) Additional Instructions: Follow up with your primary care provider. Return to the emergency department immediately if your symptoms worsen or if you develop any dizziness, shortness of breath, difficulty breathing, chest pain, blurry vision, loss of vision, nausea, vomiting, abdominal pain, fever, chills, back pain, or any other complaints. Prescriptions: No Action ferrous sulfate 325 mg (65 mg iron) tablet,delayed release (DR/EC) 1 tab PO BID Qty: 60 4RF acetaminophen 500 mg tablet 1,000 mg PO QID PRN (Reason: pain) Qty: 30 0RF (DME) lancets 30 gauge misc See Rx Instructions .ROUTE .MEDSUPPLY Qty: 100 Rx Instructions: As directed alcohol swabs Pads, Medicated 1 pad topical DAILY folic acid 1 mg tablet 1 mg PO DAILY verapamil 300 mg capsule, [address] 300 mg PO DAILY metformin 1,000 mg tablet 1,000 mg PO BID magnesium oxide 400 mg (241.3 mg magnesium) tablet 400 mg PO BID aspirin 81 mg tablet,delayed release (DR/EC) 81 mg PO DAILY prednisone 5 mg tablet 5 mg PO DAILY glipizide 10 mg tablet 10 mg PO BID (DME) Procare Spacer With Adult Mask Spacer See Rx Instructions .ROUTE .MEDSUPPLY Qty: 1 Rx Instructions: As directed (DME) FreeStyle Lite Strips Strip See Rx Instructions Not Applicable .MEDSUPPLY Qty: 10 Rx Instructions: As directed omeprazole 20 mg capsule,delayed release(DR/EC) 20 mg PO DAILY albuterol sulfate 2.5 mg /3 mL (0.083 %) solution for nebulization 2.5 mg inhalation Q4-6H PRN (Reason: Wheezing) albuterol sulfate 90 mcg/actuation HFA aerosol inhaler 2 inh inhalation Q6-8H PRN (Reason: Wheezing) pravastatin 20 mg tablet 20 mg PO DAILY Referrals: Teofilo Moreno III, MD [Primary Care Provider] - Print Language: Ivorian
--- OUTSIDE RECORDS SUMMARY | 2022-04-27 09:21 | XMS_ITS | Continuity of Care Document ---
:1940 Author Organization [facility] Address [address] [place] [id number]- Care Team Providers Name Role Phone Britney Lindsey DO Primary Care Physician Encounter [facility] [place] Date(s): 02/10/21 - 02/11/[address] [address]- Discharge Disposition: A-D/C Walkout Attending Physician: Not on Staff, Attending MD Admitting Physician: Not on Staff, Admitting MD Referring Physician: Not on Staff, Referring MD Allergies, Adverse Reactions, Alerts Substance Reaction Severity Status nitrofurantoin Itching Active Norvasc Active Vasotec swollen face Active Latex rash Active DAYAN inhibitors swelling Active Pineapple rash Active Vital Signs Most recent to oldest 1 2 3 [Reference Range]: Weight 76.4 kg (02/10/21 8:23 AM) Oxygen Saturation [94-100 97 % 98 % 96 % %] (02/10/21 7:48 PM) (02/10/21 8:23 AM) (02/10/21 8:1 7 AM) Pulse Rate [55-90 bpm] 74 bpm 70 bpm 75 bpm (02/10/21 7:48 PM) (02/10/21 8:23 AM) (02/10/21 8:1 7 AM) Blood Pressure 153/67 mm Hg 148/56 mm Hg [90-138/55-84 mm Hg] *H* *H* (02/10/21 7:48 PM) (02/10/21 8:23 AM) Respiratory Rate [16-30 18 br/min 18 br/min br/min] (02/10/21 7:48 PM) (02/10/21 8:23 AM) Temperature [96.8-100.4 98.8 DegF 97.9 DegF DegF] (02/10/21 7:48 PM) (02/10/21 8:23 AM) Mode of Delivery (Oxygen) Room air Room air Room a ir (02/10/21 7:48 PM) (02/10/21 8:23 AM) (02/10/21 8:1 7 AM) Blood pressure sites Arm, right Arm, right (02/10/21 7:48 PM) (02/10/21 8:23 AM) Temperature Route Oral Oral (02/10/21 7:48 PM) (02/10/21 8:23 AM) Weight Obtained Via Patient/family stated (02/10/21 8:23 AM)
[2022-04-27 10:28] LABS: MANUAL DIFF FLAG NO
[2022-04-27 10:30] LABS: Basophils Absolute Auto 0.1 X10*3/uL (0.0-0.2); Basophils Percent Auto 0.6 % (0-2); Eosinophils Absolute Auto 0.3 X10*3/uL (0.0-0.4); Eosinophils Percent Auto 3.1 % (0-4); Hematocrit 34.3 % (37.0-47.0); Hemoglobin 10.9 g/dl (12.0-16.0); Imm Gran Abs Auto 0.05 X10*3/uL (0.00-0.03); Imm Gran Pct Auto 0.5 % (0.0-0.4); Lymphocytes Absolute Auto 2.5 X10*3/uL (1.2-4.9); Mean Corpuscular HGB Conc 31.8 g/dl (31.0-35.0); Mean Corpuscular Volume 91.2 fL (80.0-98.0); Mean Platelet Volume 10.4 fL (9.4-12.3); Monocytes Absolute Auto 0.7 X10*3/uL (0.1-1.2); Monocytes Percent Auto 6.4 % (2-11); Neutrophils Absolute Auto 7.3 x10*3/uL (2.0-8.3); Neutrophils Percent Auto 66.4 % (45-73); Platelet Count 245 X10*3/uL (160-400); Red Blood Count 3.76 X10*6/uL (4.20-5.50); Red Cell Distribution Width 13.7 % (11.0-16.0); White Blood Count 11.1 X10*3/uL (4.8-10.8)
[2022-04-27 10:35] LABS: INTERNATIONAL NORM RATIO 0.9 (0.9-1.1)
[2022-04-27 10:38] LABS: Partial Thromboplastin Time 37.4 SEC (26.0-36.4)
[2022-04-27 10:52] LABS: Alanine Aminotransferase 9 U/L (0-31); Albumin Level 3.8 g/dL (3.5-5.0); Alkaline Phosphatase 76 U/L (39-117); Anion Gap 16 (12-20); Aspartate Amino Transferase 15 U/L (5-31); Bilirubin Total 0.4 mg/dL (0.0-1.0); Blood Urea Nitrogen 20 mg/dL (9-16); Calcium 9.4 mg/dL (8.4-10.2); Carbon Dioxide 25 mmol/L (22-29); Chloride 106 mmol/L (96-108); Creatinine Clr Calc Pharmacy 33.9; Estimated Glomerular Filt Rate 46; Glucose Random 156 mg/dL (60-115); Magnesium 1.5 mg/dL (1.6-2.6); Potassium 3.8 mmol/L (3.3-5.1); Sodium 143 mmol/L (135-145); Total Protein 6.5 g/dL (6.5-8.0)
[2022-04-27 11:49] VITALS: BP 152/56; PULSE 51; RESP 16; O2SAT 97
== END 2022-04-27 12:14 | disposition home or self-care (01) ==
PROVIDERS: Physician Assistant Medical; Emergency Provider Emergency Medicine; PCP Internal Medicine
DX: S22.32XA Fracture of one rib, left side, initial encounter for closed fracture (principal); R07.89 Other chest pain; M54.2 Cervicalgia; R51.9 Headache, unspecified; R06.02 Shortness of breath; R10.9 Unspecified abdominal pain; W01.0XXA Fall on same level from slipping, tripping and stumbling without subsequent striking against object, initial encounter; Y93.9 Activity, unspecified; Y92.002 Bathroom of unspecified non-institutional (private) residence as the place of occurrence of the external cause; Y99.9 Unspecified external cause status; Z79.899 Other long term (current) drug therapy
CPT/HCPCS: 36415; 70450; 71250; 72125; 74176; 80053; 83735; 85025; 85610; 85730; 94010; 99283; 99284

== ENCOUNTER 2022-08-25 13:59 | Emergency (ER) | payer MEDICARE, SELFPAY ==
--- NOTE | ~2022-08-25 | XR_ITS ---
EXAMINATION: XR CHEST CLINICAL INFORMATION: Dizziness COMPARISON: Chest x-ray 02/18/2021 TECHNIQUE: 2 views of the chest were obtained. FINDINGS: The lungs are clear. No airspace consolidation. No pleural effusion or pneumothorax. Cardiomediastinal silhouette is unchanged. Mild prominence of the central pulmonary vascularity. No evidence of overt pulmonary edema. No acute osseous injury. Subacute to chronic lower left lateral rib fracture deformities. Multilevel degenerative disc disease in the thoracolumbar spine. XR/XR chest 2V IMPRESSION: 1. No acute pulmonary process.
--- NOTE | ~2022-08-25 | CT_ITS ---
EXAMINATION: CT HEAD WITHOUT CONTRAST CLINICAL INFORMATION: Dizziness COMPARISON: Head CT April 27, 2022 TECHNIQUE: Contiguous axial imaging was performed from the skull base to vertex without intravenous administration of contrast. This CT examination was performed using dose optimization techniques as appropriate, variously including the following: *Automated exposure control *Adjustment of mA and/or kV according to patient size (this includes techniques or standardized protocols for targeted exams where dose is matched to indication/reason for exam; i.e. extremities or head) *Use of iterative reconstruction technique DLP: 533 mGy-cm FINDINGS: There is no evidence of acute intracranial hemorrhage or territorial infarction. No abnormal mass effect or midline shift is appreciated. Hua-white differentiation is well preserved. No extra-axial fluid collections. The ventricular system and cortical sulci are mildly prominent, consistent with age-appropriate volume loss. There are areas of low density in the periventricular and subcortical white matter, most consistent with sequelae of microvascular ischemic change. The osseous structures and soft tissues are normal. There are calcifications of the cavernous internal carotid arteries. The visualized paranasal sinuses and mastoid air cells are well aerated. CT/CT head/brain wo IV con IMPRESSION: Chronic microvascular ischemic changes with no CT evidence of acute intracranial abnormality.
[2022-08-25 14:06] VITALS: BP 168/47; PULSE 47; RESP 20; TEMP 36.6; O2SAT 95; BMI 31.8
--- NOTE | 2022-08-25 14:06 | ED.GENADULT ---
HPI - General Adult General Chief complaint: Dizziness <LAZARO Lantigua - Last Filed: 08/25/22 14:08> Stated complaint: Vomiting, Dizzy, diarrhea <LAZARO Lantigua - Last Filed: 08/25/22 14:08> Time Seen by Provider: 08/25/22 16:21 <LAZARO Lantigua - Last Filed: 08/25/22 14:08> Source: patient <Zenon Huntley MD - Last Filed: 08/25/22 19:02> Mode of arrival: ambulatory <Zenon Huntley MD - Last Filed: 08/25/22 19:02> Limitations: no limitations <Zenon Huntley MD - Last Filed: 08/25/22 19:02> History of Present Illness HPI narrative: Patient has history of hypertension diabetes , COPD ,vertigo aortic stenosis comes here for sudden onset of vertigo since he woke up in the morning similar that in the past but more severe was unable to ambulate nauseated and vomited few times no headache no focal weakness no fever chills patient does have tinnitus off and on on the left side patient feels vertiginous feeling especially turning the head to the right side no fever no chills no headache no palpitation or chest pain no lightheadedness or syncope. Patient took her meclizine 2 times today <Zenon Huntley MD - Last Filed: 08/25/22 19:02> Related Data Home medications: Home Medications Medication Instructions Recorded Confirmed albuterol sulfate 2.5 mg/3 mL 2.5 mg inhalation Q4-6H PRN 06/15/20 08/17/22 (0.083 %) solution for nebulization Wheezing alcohol swabs 1 pad topical DAILY 06/15/20 08/17/22 aspirin 81 mg tablet,delayed 81 mg PO DAILY 06/15/20 08/17/22 release blood sugar diagnostic #10 ea 06/15/20 08/17/22 folic acid 1 mg tablet 1 mg PO DAILY 06/15/20 08/17/22 glipizide 10 mg tablet 10 mg PO BID 06/15/20 08/17/22 inhalat.spacing dev,large mask #1 ea 06/15/20 08/17/22 lancets 30 gauge #100 ea 06/15/20 08/17/22 magnesium oxide 400 mg (241.3 mg 400 mg PO BID 06/15/20 08/17/22 magnesium) tablet metformin 1,000 mg tablet 1,000 mg PO BID 06/15/20 08/17/22 omeprazole 20 mg capsule,delayed 20 mg PO DAILY 06/15/20 08/17/22 release prednisone 5 mg tablet 5 mg PO DAILY 06/15/20 08/17/22 verapamil 300 mg capsule 24hr 300 mg PO DAILY 06/15/20 08/17/[address],ext.release albuterol sulfate 90 mcg/actuation 2 inh inhalation Q6-8H PRN Wheezing 12/20/20 08/17/22 aerosol inhaler pravastatin 20 mg tablet 20 mg PO DAILY 12/20/20 08/17/22 meclizine 25 mg tablet 1 tab PO TID 08/17/22 08/17/22 Previous Rx's Medication Instructions Recorded acetaminophen 500 mg tablet 1,000 mg PO QID PRN pain #30 tabs 02/18/21 ferrous sulfate 325 mg (65 mg 1 tab PO BID #60 tabs 05/11/22 iron) tablet,delayed release <LAZARO Lantigua - Last Filed: 08/25/22 14:08> Allergies/adverse reactions: Allergies Allergy/AdvReac Type Severity Reaction Status Date / Time latex [LATEX] Allergy Unknown RASH Verified 08/17/22 13:05 pineapple [PINEAPPLE] Allergy Unknown HIVES Verified 08/17/22 13:05 enalaprilat [From Vasotec] AdvReac Mild Unknown Verified 08/17/22 13:05 <LAZARO Lantigua - Last Filed: 08/25/22 14:08> Review of Systems Review of Systems: Yes all other systems are reviewed and are negative <Zenon Huntley MD - Last Filed: 08/25/22 19:02> [facility] Past Medical History Medical History: Medical History Arthritis COPD (chronic obstructive pulmonary disease) Restrictive lung disease <LAZARO Lantigua - Last Filed: 08/25/22 14:08> Surgical History: Surgical History Hx of cholecystectomy <LAZARO Lantigua - Last Filed: 08/25/22 14:08> Family History Family History: Family History Mother Diabetes Maternal Grandmother Diabetes <LAZARO Lantigua - Last Filed: 08/25/22 14:08> Social History Social History: Social History Household Members: Children Housing: Apartment Are you a primary direct care specialist to a significant other at home: No Do you presently have visiting nurse or other home services: No Alcohol intake: former Patient Tobacco Use Status: Never used Tobacco Cigarette Packs Per Day: 1 Advance Directives: No service: No Current occupational status: unemployed <LAZARO Lantigua - Last Filed: 08/25/22 14:08> Physical Exam ED Vital Signs: Vital Signs - 24 hr 08/25/22 14:06 08/25/22 16:00 08/25/22 18:00 Temperature 97.9 F 97.9 F Pulse Rate 47 L 54 60 Respiratory Rate 20 16 16 Blood Pressure 168/47 H 161/55 H 158/64 H Pulse Oximetry 95 97 95 Oxygen Delivery Method Room Air Room Air Room Air BMI result Body Mass Index 31.8 <LAZARO Lantigua - Last Filed: 08/25/22 14:08> Vital Signs - 24 hr 08/25/22 14:06 08/25/22 16:00 08/25/22 18:00 Temperature 97.9 F 97.9 F Pulse Rate 47 L 54 60 Respiratory Rate 20 16 16 Blood Pressure 168/47 H 161/55 H 158/64 H Pulse Oximetry 95 97 95 Oxygen Delivery Method Room Air Room Air Room Air BMI result Body Mass Index 31.8 <Zenon Huntley MD - Last Filed: 08/25/22 19:02> Appearance: Alert. Oriented X3. No acute distress. Eyes: PERRLA,nystagmus with fast to r on tuning head to right ENT: Pharynx normal. Oral Mucosa moist Neck: Normal inspection. Neck supple. CVS: Normal heart rate and rhythm. Pulses normal. Respiratory: No respiratory distress. Equal air entry bilateral, no wheezing/rales/rhonchi Abdomen: Soft and nontender. Bowel sounds are present, no mass palpable, no CVA tenderness Skin: Skin warm and dry. Normal skin color. Normal skin turgor. Extremities: No lower extremity edema. No calf tenderness Neuro: Oriented X 3. No motor deficit. No sensory deficit.No cerebellar signs , cranial nerves II-XII intact <Zenon Huntley MD - Last Filed: 08/25/22 19:02> Course Course Course Narrative: RME performed by Marita Monzon PA-C. Patient is an 82 year old female presenting to the emergency department with dizziness and nausea. Patient states that she woke up with profound dizziness and has been vomiting non-stop since. Labs, chest XR, head CT, UA, EKG ordered. Patient placed back in waiting room pending room availability and results. <LAZARO Lantigua - Last Filed: 08/25/22 14:08> Medications Administered Discontinued Medications Generic Name Dose Route Start Last Admin Trade Name Freq PRN Reason Stop Dose Admin Sodium Chloride 1,000 mls @ 999 mls/hr 08/25/22 16:42 08/25/22 18:05 Ns IV 08/25/22 17:42 Infused .Q1H1M ONE Infusion Lorazepam 0.5 mg 08/25/22 16:42 08/25/22 17:22 Lorazepam 2 Mg/Ml Vial IVPUSH 08/25/22 16:43 0.5 mg ONCE ONE Administration Ondansetron HCl 4 mg 08/25/22 16:42 08/25/22 17:22 Ondansetron Hcl 4 Mg/2 Ml Vial IVPUSH 08/25/22 16:43 4 mg ONCE ONE Administration <LAZARO Lantigua - Last Filed: 08/25/22 14:08> Medications Administered Discontinued Medications Generic Name Dose Route Start Last Admin Trade Name Freq PRN Reason Stop Dose Admin Sodium Chloride 1,000 mls @ 999 mls/hr 08/25/22 16:42 08/25/22 18:05 Ns IV 08/25/22 17:42 Infused .Q1H1M ONE Infusion Lorazepam 0.5 mg 08/25/22 16:42 08/25/22 17:22 Lorazepam 2 Mg/Ml Vial IVPUSH 08/25/22 16:43 0.5 mg ONCE ONE Administration Ondansetron HCl 4 mg 08/25/22 16:42 08/25/22 17:22 Ondansetron Hcl 4 Mg/2 Ml Vial IVPUSH 08/25/22 16:43 4 mg ONCE ONE Administration <Zenon Huntley MD - Last Filed: 08/25/22 19:02> Medical Decision Making Lab Data [facility] Lab Attestation statement: I reviewed the patient's lab results. <Zenon Huntley MD - Last Filed: 08/25/22 19:02> Result Diagrams: 08/25/22 14:31 08/25/22 14:31 <LAZARO Lantigua - Last Filed: 08/25/22 14:08> Labs: Lab Results 08/25/22 08/25/22 08/25/22 Range/Units 14:31 14:31 14:31 WBC 12.4 H (4.8-10.8) X10*3/uL RBC 4.01 L (4.20-5.50) X10*6/uL Hgb 11.5 L (12.0-16.0) g/dl Hct 37.0 (37.0-47.0) % MCV 92.3 (80.0-98.0) fL MCH 28.7 (27.0-33.0) pg MCHC 31.1 (31.0-35.0) g/dl RDW 12.9 (11.0-16.0) % Plt Count 230 (160-400) X10*3/uL MPV 10.5 (9.4-12.3) fL Immature Gran % (Auto) 0.3 (0.0-0.4) % Neut % (Auto) 65.3 (45-73) % Lymph % (Auto) 24.3 (20-40) % [place] % (Auto) 6.2 (2-11) % Eos % (Auto) 3.2 (0-4) % Baso % (Auto) 0.7 (0-2) % Lymph # (Auto) 3.0 (1.2-4.9) X10*3/uL [place] # (Auto) 0.8 (0.1-1.2) X10*3/uL Eos # (Auto) 0.4 (0.0-0.4) X10*3/uL Baso # (Auto) 0.1 (0.0-0.2) X10*3/uL Abs Immat Gran (auto) 0.04 H (0.00-0.03) X10*3/uL Absolute Neuts (auto) 8.1 (2.0-8.3) x10*3/uL Absolute Nucleated RBC 0.000 (0.0-0.012) X10*3/uL Nucleated RBC % (auto) 0.0 (0.0-0.2) /100WBC PT 10.4 (10.0-13.1) SEC INR 0.9 (0.9-1.1) APTT 36.5 H (26.0-36.4) SEC VBG pH (7.32-7.43) VBG pCO2 mmHg VBG pO2 mmHg VBG HCO3 (22-26) mmol/L VBG O2 Saturation % VBG Base Excess mmol/L Sodium 142 (135-145) mmol/L Potassium 4.2 (3.3-5.1) mmol/L Chloride 109 H (96-108) mmol/L Carbon Dioxide 22 (22-29) mmol/L Anion Gap 15 (12-20) BUN 22 H (9-16) mg/dL Creatinine 1.19 (0.5-1.4) mg/dL Estim Creat Clear Calc 31.9 Estimated GFR 44 Random Glucose 163 H (60-115) mg/dL Calcium 9.5 (8.4-10.2) mg/dL Magnesium 1.6 (1.6-2.6) mg/dL Total Bilirubin 0.8 (0.0-1.0) mg/dL AST 14 (5-31) U/L ALT 7 (0-31) U/L Alkaline Phosphatase 74 (39-117) U/L Troponin I High Sens (<3.5-17.0) ng/L B-Natriuretic Peptide (<100) pg/mL Total Protein 6.3 L (6.5-8.0) g/dL Albumin 3.8 (3.5-5.0) g/dL Urine Color Urine Appearance Urine pH (5.0-9.0) Ur Specific [place] (1.005-1.025) Urine Protein (Neg-Trace) mg/dL Urine Glucose (UA) (Negative) mg/dL Urine Ketones (Negative) mg/dL Urine Blood (Negative) Urine Nitrite (Negative) Ur Leukocyte Esterase (Negative) Influenza Type A (PCR) (Negative) Influenza Type B (PCR) (Negative) RSV RNA Qual (PCR) (Negative) SARS-CoV-2 RNA (RT-PCR) (Negative) 08/25/22 08/25/22 08/25/22 Range/Units 14:31 14:31 14:31 WBC (4.8-10.8) X10*3/uL RBC (4.20-5.50) X10*6/uL Hgb (12.0-16.0) g/dl Hct (37.0-47.0) % MCV (80.0-98.0) fL MCH (27.0-33.0) pg MCHC (31.0-35.0) g/dl RDW (11.0-16.0) % Plt Count (160-400) X10*3/uL MPV (9.4-12.3) fL Immature Gran % (Auto) (0.0-0.4) % Neut % (Auto) (45-73) % Lymph % (Auto) (20-40) % [place] % (Auto) (2-11) % Eos % (Auto) (0-4) % Baso % (Auto) (0-2) % Lymph # (Auto) (1.2-4.9) X10*3/uL [place] # (Auto) (0.1-1.2) X10*3/uL Eos # (Auto) (0.0-0.4) X10*3/uL Baso # (Auto) (0.0-0.2) X10*3/uL Abs Immat Gran (auto) (0.00-0.03) X10*3/uL Absolute Neuts (auto) (2.0-8.3) x10*3/uL Absolute Nucleated RBC (0.0-0.012) X10*3/uL Nucleated RBC % (auto) (0.0-0.2) /100WBC PT (10.0-13.1) SEC INR (0.9-1.1) APTT (26.0-36.4) SEC VBG pH (7.32-7.43) VBG pCO2 mmHg VBG pO2 mmHg VBG HCO3 (22-26) mmol/L VBG O2 Saturation % VBG Base Excess mmol/L Sodium (135-145) mmol/L Potassium (3.3-5.1) mmol/L Chloride (96-108) mmol/L Carbon Dioxide (22-29) mmol/L Anion Gap (12-20) BUN (9-16) mg/dL Creatinine (0.5-1.4) mg/dL Estim Creat Clear Calc Estimated GFR Random Glucose (60-115) mg/dL Calcium (8.4-10.2) mg/dL Magnesium (1.6-2.6) mg/dL Total Bilirubin (0.0-1.0) mg/dL AST (5-31) U/L ALT (0-31) U/L Alkaline Phosphatase (39-117) U/L Troponin I High Sens 8.7 (<3.5-17.0) ng/L B-Natriuretic Peptide 495 H (<100) pg/mL Total Protein (6.5-8.0) g/dL Albumin (3.5-5.0) g/dL Urine Color Urine Appearance Urine pH (5.0-9.0) Ur Specific [place] (1.005-1.025) Urine Protein (Neg-Trace) mg/dL Urine Glucose (UA) (Negative) mg/dL Urine Ketones (Negative) mg/dL Urine Blood (Negative) Urine Nitrite (Negative) Ur Leukocyte Esterase (Negative) Influenza Type A (PCR) NEGATIVE (Negative) Influenza Type B (PCR) NEGATIVE (Negative) RSV RNA Qual (PCR) NEGATIVE (Negative) SARS-CoV-2 RNA (RT-PCR) NEGATIVE (Negative) 08/25/22 08/25/22 Range/Units 14:37 16:35 WBC (4.8-10.8) X10*3/uL RBC (4.20-5.50) X10*6/uL Hgb (12.0-16.0) g/dl Hct (37.0-47.0) % MCV (80.0-98.0) fL MCH (27.0-33.0) pg MCHC (31.0-35.0) g/dl RDW (11.0-16.0) % Plt Count (160-400) X10*3/uL MPV (9.4-12.3) fL Immature Gran % (Auto) (0.0-0.4) % Neut % (Auto) (45-73) % Lymph % (Auto) (20-40) % [place] % (Auto) (2-11) % Eos % (Auto) (0-4) % Baso % (Auto) (0-2) % Lymph # (Auto) (1.2-4.9) X10*3/uL [place] # (Auto) (0.1-1.2) X10*3/uL Eos # (Auto) (0.0-0.4) X10*3/uL Baso # (Auto) (0.0-0.2) X10*3/uL Abs Immat Gran (auto) (0.00-0.03) X10*3/uL Absolute Neuts (auto) (2.0-8.3) x10*3/uL Absolute Nucleated RBC (0.0-0.012) X10*3/uL Nucleated RBC % (auto) (0.0-0.2) /100WBC PT (10.0-13.1) SEC INR (0.9-1.1) APTT (26.0-36.4) SEC VBG pH 7.39 (7.32-7.43) VBG pCO2 42 mmHg VBG pO2 64 mmHg VBG HCO3 26 (22-26) mmol/L VBG O2 Saturation 91.0 % VBG Base Excess 1.1 mmol/L Sodium (135-145) mmol/L Potassium (3.3-5.1) mmol/L Chloride (96-108) mmol/L Carbon Dioxide (22-29) mmol/L Anion Gap (12-20) BUN (9-16) mg/dL Creatinine (0.5-1.4) mg/dL Estim Creat Clear Calc Estimated GFR Random Glucose (60-115) mg/dL Calcium (8.4-10.2) mg/dL Magnesium (1.6-2.6) mg/dL Total Bilirubin (0.0-1.0) mg/dL AST (5-31) U/L ALT (0-31) U/L Alkaline Phosphatase (39-117) U/L Troponin I High Sens (<3.5-17.0) ng/L B-Natriuretic Peptide (<100) pg/mL Total Protein (6.5-8.0) g/dL Albumin (3.5-5.0) g/dL Urine Color Yellow Urine Appearance Clear Urine pH 7.5 (5.0-9.0) Ur Specific [place] 1.010 (1.005-1.025) Urine Protein Trace (Neg-Trace) mg/dL Urine Glucose (UA) Negative (Negative) mg/dL Urine Ketones Negative (Negative) mg/dL Urine Blood Negative (Negative) Urine Nitrite Negative (Negative) Ur Leukocyte Esterase Negative (Negative) Influenza Type A (PCR) (Negative) Influenza Type B (PCR) (Negative) RSV RNA Qual (PCR) (Negative) SARS-CoV-2 RNA (RT-PCR) (Negative) <LZAARO Lantigua - Last Filed: 08/25/22 14:08> Lab Results 08/25/22 08/25/22 08/25/22 Range/Units 14:31 14:31 14:31 WBC 12.4 H (4.8-10.8) X10*3/uL RBC 4.01 L (4.20-5.50) X10*6/uL Hgb 11.5 L (12.0-16.0) g/dl Hct 37.0 (37.0-47.0) % MCV 92.3 (80.0-98.0) fL MCH 28.7 (27.0-33.0) pg MCHC 31.1 (31.0-35.0) g/dl RDW 12.9 (11.0-16.0) % Plt Count 230 (160-400) X10*3/uL MPV 10.5 (9.4-12.3) fL Immature Gran % (Auto) 0.3 (0.0-0.4) % Neut % (Auto) 65.3 (45-73) % Lymph % (Auto) 24.3 (20-40) % [place] % (Auto) 6.2 (2-11) % Eos % (Auto) 3.2 (0-4) % Baso % (Auto) 0.7 (0-2) % Lymph # (Auto) 3.0 (1.2-4.9) X10*3/uL [place] # (Auto) 0.8 (0.1-1.2) X10*3/uL Eos # (Auto) 0.4 (0.0-0.4) X10*3/uL Baso # (Auto) 0.1 (0.0-0.2) X10*3/uL Abs Immat Gran (auto) 0.04 H (0.00-0.03) X10*3/uL Absolute Neuts (auto) 8.1 (2.0-8.3) x10*3/uL Absolute Nucleated RBC 0.000 (0.0-0.012) X10*3/uL Nucleated RBC % (auto) 0.0 (0.0-0.2) /100WBC PT 10.4 (10.0-13.1) SEC INR 0.9 (0.9-1.1) APTT 36.5 H (26.0-36.4) SEC VBG pH (7.32-7.43) VBG pCO2 mmHg VBG pO2 mmHg VBG HCO3 (22-26) mmol/L VBG O2 Saturation % VBG Base Excess mmol/L Sodium 142 (135-145) mmol/L Potassium 4.2 (3.3-5.1) mmol/L Chloride 109 H (96-108) mmol/L Carbon Dioxide 22 (22-29) mmol/L Anion Gap 15 (12-20) BUN 22 H (9-16) mg/dL Creatinine 1.19 (0.5-1.4) mg/dL Estim Creat Clear Calc 31.9 Estimated GFR 44 Random Glucose 163 H (60-115) mg/dL Calcium 9.5 (8.4-10.2) mg/dL Magnesium 1.6 (1.6-2.6) mg/dL Total Bilirubin 0.8 (0.0-1.0) mg/dL AST 14 (5-31) U/L ALT 7 (0-31) U/L Alkaline Phosphatase 74 (39-117) U/L Troponin I High Sens (<3.5-17.0) ng/L B-Natriuretic Peptide (<100) pg/mL Total Protein 6.3 L (6.5-8.0) g/dL Albumin 3.8 (3.5-5.0) g/dL Urine Color Urine Appearance Urine pH (5.0-9.0) Ur Specific [place] (1.005-1.025) Urine Protein (Neg-Trace) mg/dL Urine Glucose (UA) (Negative) mg/dL Urine Ketones (Negative) mg/dL Urine Blood (Negative) Urine Nitrite (Negative) Ur Leukocyte Esterase (Negative) Influenza Type A (PCR) (Negative) Influenza Type B (PCR) (Negative) RSV RNA Qual (PCR) (Negative) SARS-CoV-2 RNA (RT-PCR) (Negative) 08/25/22 08/25/22 08/25/22 Range/Units 14:31 14:31 14:31 WBC (4.8-10.8) X10*3/uL RBC (4.20-5.50) X10*6/uL Hgb (12.0-16.0) g/dl Hct (37.0-47.0) % MCV (80.0-98.0) fL MCH (27.0-33.0) pg MCHC (31.0-35.0) g/dl RDW (11.0-16.0) % Plt Count (160-400) X10*3/uL MPV (9.4-12.3) fL Immature Gran % (Auto) (0.0-0.4) % Neut % (Auto) (45-73) % Lymph % (Auto) (20-40) % [place] % (Auto) (2-11) % Eos % (Auto) (0-4) % Baso % (Auto) (0-2) % Lymph # (Auto) (1.2-4.9) X10*3/uL [place] # (Auto) (0.1-1.2) X10*3/uL Eos # (Auto) (0.0-0.4) X10*3/uL Baso # (Auto) (0.0-0.2) X10*3/uL Abs Immat Gran (auto) (0.00-0.03) X10*3/uL Absolute Neuts (auto) (2.0-8.3) x10*3/uL Absolute Nucleated RBC (0.0-0.012) X10*3/uL Nucleated RBC % (auto) (0.0-0.2) /100WBC PT (10.0-13.1) SEC INR (0.9-1.1) APTT (26.0-36.4) SEC VBG pH (7.32-7.43) VBG pCO2 mmHg VBG pO2 mmHg VBG HCO3 (22-26) mmol/L VBG O2 Saturation % VBG Base Excess mmol/L Sodium (135-145) mmol/L Potassium (3.3-5.1) mmol/L Chloride (96-108) mmol/L Carbon Dioxide (22-29) mmol/L Anion Gap (12-20) BUN (9-16) mg/dL Creatinine (0.5-1.4) mg/dL Estim Creat Clear Calc Estimated GFR Random Glucose (60-115) mg/dL Calcium (8.4-10.2) mg/dL Magnesium (1.6-2.6) mg/dL Total Bilirubin (0.0-1.0) mg/dL AST (5-31) U/L ALT (0-31) U/L Alkaline Phosphatase (39-117) U/L Troponin I High Sens 8.7 (<3.5-17.0) ng/L B-Natriuretic Peptide 495 H (<100) pg/mL Total Protein (6.5-8.0) g/dL Albumin (3.5-5.0) g/dL Urine Color Urine Appearance Urine pH (5.0-9.0) Ur Specific [place] (1.005-1.025) Urine Protein (Neg-Trace) mg/dL Urine Glucose (UA) (Negative) mg/dL Urine Ketones (Negative) mg/dL Urine Blood (Negative) Urine Nitrite (Negative) Ur Leukocyte Esterase (Negative) Influenza Type A (PCR) NEGATIVE (Negative) Influenza Type B (PCR) NEGATIVE (Negative) RSV RNA Qual (PCR) NEGATIVE (Negative) SARS-CoV-2 RNA (RT-PCR) NEGATIVE (Negative) 08/25/22 08/25/22 Range/Units 14:37 16:35 WBC (4.8-10.8) X10*3/uL RBC (4.20-5.50) X10*6/uL Hgb (12.0-16.0) g/dl Hct (37.0-47.0) % MCV (80.0-98.0) fL MCH (27.0-33.0) pg MCHC (31.0-35.0) g/dl RDW (11.0-16.0) % Plt Count (160-400) X10*3/uL MPV (9.4-12.3) fL Immature Gran % (Auto) (0.0-0.4) % Neut % (Auto) (45-73) % Lymph % (Auto) (20-40) % [place] % (Auto) (2-11) % Eos % (Auto) (0-4) % Baso % (Auto) (0-2) % Lymph # (Auto) (1.2-4.9) X10*3/uL [place] # (Auto) (0.1-1.2) X10*3/uL Eos # (Auto) (0.0-0.4) X10*3/uL Baso # (Auto) (0.0-0.2) X10*3/uL Abs Immat Gran (auto) (0.00-0.03) X10*3/uL Absolute Neuts (auto) (2.0-8.3) x10*3/uL Absolute Nucleated RBC (0.0-0.012) X10*3/uL Nucleated RBC % (auto) (0.0-0.2) /100WBC PT (10.0-13.1) SEC INR (0.9-1.1) APTT (26.0-36.4) SEC VBG pH 7.39 (7.32-7.43) VBG pCO2 42 mmHg VBG pO2 64 mmHg VBG HCO3 26 (22-26) mmol/L VBG O2 Saturation 91.0 % VBG Base Excess 1.1 mmol/L Sodium (135-145) mmol/L Potassium (3.3-5.1) mmol/L Chloride (96-108) mmol/L Carbon Dioxide (22-29) mmol/L Anion Gap (12-20) BUN (9-16) mg/dL Creatinine (0.5-1.4) mg/dL Estim Creat Clear Calc Estimated GFR Random Glucose (60-115) mg/dL Calcium (8.4-10.2) mg/dL Magnesium (1.6-2.6) mg/dL Total Bilirubin (0.0-1.0) mg/dL AST (5-31) U/L ALT (0-31) U/L Alkaline Phosphatase (39-117) U/L Troponin I High Sens (<3.5-17.0) ng/L B-Natriuretic Peptide (<100) pg/mL Total Protein (6.5-8.0) g/dL Albumin (3.5-5.0) g/dL Urine Color Yellow Urine Appearance Clear Urine pH 7.5 (5.0-9.0) Ur Specific [place] 1.010 (1.005-1.025) Urine Protein Trace (Neg-Trace) mg/dL Urine Glucose (UA) Negative (Negative) mg/dL Urine Ketones Negative (Negative) mg/dL Urine Blood Negative (Negative) Urine Nitrite Negative (Negative) Ur Leukocyte Esterase Negative (Negative) Influenza Type A (PCR) (Negative) Influenza Type B (PCR) (Negative) RSV RNA Qual (PCR) (Negative) SARS-CoV-2 RNA (RT-PCR) (Negative) <Zenon Huntley MD - Last Filed: 08/25/22 19:02> Independent Interpretation I performed an independent interpretation of an: EKG <Zenon Huntley MD - Last Filed: 08/25/22 19:02> Interpretation: Sinus bradycardia heart rate 46 beats per minute left bundle-branch block no acute ST changes no acute ischemia <Zenon Huntley MD - Last Filed: 08/25/22 19:02> Discharge Plan Discharge Clinical Impression: Benign paroxysmal positional vertigo <LAZARO Lantigua - Last Filed: 08/25/22 14:08> Prescriptions: No Action ferrous sulfate 325 mg (65 mg iron) tablet,delayed release (DR/EC) 1 tab PO BID Qty: 60 1RF meclizine 25 mg tablet 1 tab PO TID acetaminophen 500 mg tablet 1,000 mg PO QID PRN (Reason: pain) Qty: 30 0RF (DME) lancets 30 gauge misc See Rx Instructions .ROUTE .MEDSUPPLY Qty: 100 Rx Instructions: As directed alcohol swabs Pads, Medicated 1 pad topical DAILY folic acid 1 mg tablet 1 mg PO DAILY verapamil 300 mg capsule, [address] 300 mg PO DAILY metformin 1,000 mg tablet 1,000 mg PO BID magnesium oxide 400 mg (241.3 mg magnesium) tablet 400 mg PO BID aspirin 81 mg tablet,delayed release (DR/EC) 81 mg PO DAILY prednisone 5 mg tablet 5 mg PO DAILY glipizide 10 mg tablet 10 mg PO BID (DME) Procare Spacer With Adult Mask Spacer See Rx Instructions .ROUTE .MEDSUPPLY Qty: 1 Rx Instructions: As directed (DME) FreeStyle Lite Strips Strip See Rx Instructions Not Applicable .MEDSUPPLY Qty: 10 Rx Instructions: As directed omeprazole 20 mg capsule,delayed release(DR/EC) 20 mg PO DAILY albuterol sulfate 2.5 mg /3 mL (0.083 %) solution for nebulization 2.5 mg inhalation Q4-6H PRN (Reason: Wheezing) albuterol sulfate 90 mcg/actuation HFA aerosol inhaler 2 inh inhalation Q6-8H PRN (Reason: Wheezing) pravastatin 20 mg tablet 20 mg PO DAILY <LAZARO Lantigua - Last Filed: 08/25/22 14:08>
--- NOTE | 2022-08-25 14:08 | ECG_ITS ---
Test Reason : DIZZINESS Blood Pressure : / mmHG Vent. Rate : 046 BPM Atrial Rate : 046 BPM P-R Int : 144 ms QRS Dur : 152 ms QT Int : 522 ms P-R-T Axes : -20 -18 122 degrees QTc Int : 456 ms Sinus bradycardia Left bundle branch block Abnormal ECG When compared with ECG of 05-FEB-2017 19:21, Vent. rate has decreased BY 35 BPM Left bundle branch block is now Present Referred By: Marita Monzon Electronically Signed By:MYA MALCOLM
[2022-08-25 14:39] LABS: MANUAL DIFF FLAG NO
--- NOTE | 2022-08-25 14:39 | PC.NURSE ---
82 y/o F pw dizziness and n/v since this AM. VSS at this time, EKg done, labs drawn and sent. awaiting further recs
[2022-08-25 14:40] LABS: Basophils Absolute Auto 0.1 X10*3/uL (0.0-0.2); Basophils Percent Auto 0.7 % (0-2); Eosinophils Absolute Auto 0.4 X10*3/uL (0.0-0.4); Eosinophils Percent Auto 3.2 % (0-4); Hemoglobin 11.5 g/dl (12.0-16.0); Imm Gran Abs Auto 0.04 X10*3/uL (0.00-0.03); Imm Gran Pct Auto 0.3 % (0.0-0.4); Lymphocytes Percent Auto 24.3 % (20-40); Mean Corpuscular HGB Conc 31.1 g/dl (31.0-35.0); Mean Corpuscular Hemoglobin 28.7 pg (27.0-33.0); Mean Corpuscular Volume 92.3 fL (80.0-98.0); Mean Platelet Volume 10.5 fL (9.4-12.3); Monocytes Absolute Auto 0.8 X10*3/uL (0.1-1.2); Monocytes Percent Auto 6.2 % (2-11); Neutrophils Absolute Auto 8.1 x10*3/uL (2.0-8.3); Neutrophils Percent Auto 65.3 % (45-73); Platelet Count 230 X10*3/uL (160-400); Red Blood Count 4.01 X10*6/uL (4.20-5.50); Red Cell Distribution Width 12.9 % (11.0-16.0); White Blood Count 12.4 X10*3/uL (4.8-10.8)
[2022-08-25 14:43] LABS: Venous Blood Gas Refer to POC result
[2022-08-25 14:44] LABS: VBG Base Excess 1.1 mmol/L; VBG HCO3 26 mmol/L (22-26); VBG pCO2 42 mmHg; VBG pH 7.39 (7.32-7.43); VBG pO2 64 mmHg
[2022-08-25 14:48] LABS: INTERNATIONAL NORM RATIO 0.9 (0.9-1.1); Prothrombin Time 10.4 SEC (10.0-13.1)
[2022-08-25 14:50] LABS: Partial Thromboplastin Time 36.5 SEC (26.0-36.4)
[2022-08-25 14:59] LABS: Alanine Aminotransferase 7 U/L (0-31); Albumin Level 3.8 g/dL (3.5-5.0); Alkaline Phosphatase 74 U/L (39-117); Anion Gap 15 (12-20); Aspartate Amino Transferase 14 U/L (5-31); Bilirubin Total 0.8 mg/dL (0.0-1.0); Blood Urea Nitrogen 22 mg/dL (9-16); Calcium 9.5 mg/dL (8.4-10.2); Carbon Dioxide 22 mmol/L (22-29); Chloride 109 mmol/L (96-108); Creatinine Clr Calc Pharmacy 31.9; Estimated Glomerular Filt Rate 44; Glucose Random 163 mg/dL (60-115); Magnesium 1.6 mg/dL (1.6-2.6); Potassium 4.2 mmol/L (3.3-5.1); Sodium 142 mmol/L (135-145); Total Protein 6.3 g/dL (6.5-8.0)
[2022-08-25 15:03] LABS: B Type Natriuretic Peptide 495 pg/mL (<100)
[2022-08-25 15:06] LABS: Troponin-I High Sensitivity 8.7 ng/L (<3.5-17.0)
[2022-08-25 15:20] LABS: Influenza A PCR NEGATIVE (Negative); Influenza B PCR NEGATIVE (Negative); Resp Syncy Virus RNA Qual PCR NEGATIVE (Negative); SARS COV2 PCR INHOUSE NEGATIVE (Negative)
[2022-08-25 16:00] VITALS: BP 161/55; PULSE 54; RESP 16; O2SAT 97
--- NOTE | 2022-08-25 16:32 | MHC.EDTECH ---
this pct assumed care of pt at 1500 ,patient vitals sign taken ,patient was assisted to bathroom ,urine sample send to lab ,call velez within reach ,patient daughter at bedside ,call velez within reach .
[2022-08-25 16:42] LABS: Appearance Urine Clear; Color Urine Yellow; Glucose Urine UA Negative (Negative); Leukocyte Esterase Urine Negative (Negative); Nitrite Urine Negative (Negative); PH 7.5 (5.0-9.0); Urine Blood Negative (Negative); Urine Ketones Negative (Negative); Urine Protein Trace mg/dL (Neg-Trace)
[2022-08-25] MEDS: 0.9 % Sodium Chloride 1,000 ML 999 ML IV (17:21)
[2022-08-25] MEDS: LORazepam 2 MG/ML VIAL 0.5 MG IVPUSH (17:22)
[2022-08-25] MEDS: ondansetron HCL 4 MG/2 ML VIAL IVPUSH (17:22)
[2022-08-25 18:00] VITALS: BP 158/64; PULSE 60; RESP 16; TEMP 36.6; O2SAT 95
--- NOTE | 2022-08-25 18:00 | MHC.EDTECH ---
1800 rounding and vitals sign done ,pt watching television ,pt daughter at bedside ,warm blanket given ,call velez within reach .
== END 2022-08-25 20:00 | disposition home or self-care (01) ==
PROVIDERS: Physician Assistant Medical; Emergency Provider Internal Medicine; PCP Internal Medicine
DX: H81.10 Benign paroxysmal vertigo, unspecified ear (principal); R00.1 Bradycardia, unspecified; Z20.822 Contact with and (suspected) exposure to COVID-19; Z20.828 Contact with and (suspected) exposure to other viral communicable diseases; I10 Essential (primary) hypertension; E11.9 Type 2 diabetes mellitus without complications; J44.9 Chronic obstructive pulmonary disease, unspecified; Z79.899 Other long term (current) drug therapy; Z79.82 Long term (current) use of aspirin; Z79.84 Long term (current) use of oral hypoglycemic drugs; Z79.02 Long term (current) use of antithrombotics/antiplatelets
CPT/HCPCS: 0241U; 36415; 70450; 71046; 80053; 81003; 82803; 83735; 83880; 84484; 85025; 85610; 85730; 93005; 96361; 96374; 96375; 99284; J2060; J2405

== ENCOUNTER → 2022-08-28 13:33 | Outpatient (BNVA) | payer OTHER, SELFPAY | PROVIDERS: PCP Internal Medicine; Visit Provider Internal Medicine | DX: J44.9 Chronic obstructive pulmonary disease, unspecified (principal); J98.4 Other disorders of lung | CPT/HCPCS: 99212 ==

== ENCOUNTER 2022-09-11 20:20 | Inpatient (IN) | payer OTHER, SELFPAY ==
[2022-09-11] VITALS (8 sets, daily range): BP systolic 88–133; BP diastolic 33–64; PULSE 64–88; RESP 16–30; TEMP 36.6–37.1; O2SAT 92–99; BMI 31.8
--- NOTE | 2022-09-11 | ECG_ITS ---
Test Reason : dizzyness Blood Pressure : / mmHG Vent. Rate : 063 BPM Atrial Rate : 063 BPM P-R Int : 136 ms QRS Dur : 138 ms QT Int : 462 ms P-R-T Axes : 035 -25 117 degrees QTc Int : 472 ms Normal sinus rhythm Left bundle branch block Abnormal ECG When compared with ECG of 25-AUG-2022 14:20, No significant change was found Referred By: Generic ED Physician Electronically Signed By:Maximino Hernandez
--- NOTE | ~2022-09-11 | XR_ITS ---
EXAMINATION: XR CHEST CLINICAL INFORMATION: Fever. COMPARISON: Chest x-ray 08/17/2022. CT of chest 04/27/2022 TECHNIQUE: Frontal portable view of the chest was obtained. 10:20 PM FINDINGS: Peripheral airspace opacity in the left midlung new since prior chest x-ray. Right lung normally aerated. Heart size enlarged. No pulmonary vascular congestion. XR/XR chest 1V IMPRESSION: Peripheral airspace opacity in the left midlung. This is consistent with pneumonia.
--- NOTE | 2022-09-11 21:46 | ED_ITS ---
HPI - Dizziness General Chief Complaint: Dizziness Stated Complaint: dizziness Time Seen by Provider: 09/11/22 21:45 Source: patient Mode of arrival: EMS Limitations: no limitations History of Present Illness HPI Narrative: Patient history of vertigo was seen here 08/25/2022 for vertiginous feeling head CT was negative comes here again for increased dizziness prior to arrival patient fell down backwards and hit her head. Patient's daughter was next to her could not hold her patient also been coughing for last few days had fever of 101.3 earlier today feels short of breath no chest pain no significant headache on arrival patient's blood pressure was 88/60 improved to 124/47 Related Data Home Medications Medication Instructions Recorded Confirmed alcohol swabs 1 pad topical DAILY 06/15/20 08/17/22 aspirin 81 mg tablet,delayed 81 mg PO DAILY 06/15/20 08/17/22 release blood sugar diagnostic #10 ea 06/15/20 08/17/22 folic acid 1 mg tablet 1 mg PO DAILY 06/15/20 08/17/22 glipizide 10 mg tablet 10 mg PO BID 06/15/20 08/17/22 inhalat.spacing dev,large mask #1 ea 06/15/20 08/17/22 lancets 30 gauge #100 ea 06/15/20 08/17/22 magnesium oxide 400 mg (241.3 mg 400 mg PO BID 06/15/20 08/17/22 magnesium) tablet metformin 1,000 mg tablet 1,000 mg PO BID 06/15/20 08/17/22 omeprazole 20 mg capsule,delayed 20 mg PO DAILY 06/15/20 08/17/22 release prednisone 5 mg tablet 5 mg PO DAILY 06/15/20 08/17/22 verapamil 300 mg capsule 24hr 300 mg PO DAILY 06/15/20 08/17/[address],ext.release meclizine 25 mg tablet 1 tab PO TID 08/17/22 08/17/22 Previous Rx's Medication Instructions Recorded albuterol sulfate 2.5 mg/3 mL 2.5 mg (3 mL) inhalation Q4-6H PRN 06/15/20 (0.083 %) solution for nebulization Wheezing 60 days #90 mL acetaminophen 500 mg tablet 1,000 mg PO QID PRN pain #30 tabs 02/18/21 ferrous sulfate 325 mg (65 mg 1 tab PO BID #60 tabs 05/11/22 iron) tablet,delayed release albuterol sulfate 90 mcg/actuation 2 inh inhalation Q6-8H PRN 08/28/22 aerosol inhaler Wheezing 60 days #8.5 grams Allergies Allergy/AdvReac Type Severity Reaction Status Date / Time latex [LATEX] Allergy Unknown RASH Verified 09/11/22 20:58 pineapple [PINEAPPLE] Allergy Unknown HIVES Verified 09/11/22 20:58 enalaprilat [From Vasotec] AdvReac Mild Unknown Verified 09/11/22 20:58 Review of Systems Review of Systems: Yes all other systems are reviewed and are negative [facility] Past Medical History Medical History Arthritis COPD (chronic obstructive pulmonary disease) Restrictive lung disease Surgical History Hx of cholecystectomy Family History Family History Mother Diabetes Maternal Grandmother Diabetes Social History Social History Household Members: Children Housing: Apartment Are you a primary home care assistant to a significant other at home: No Do you presently have visiting nurse or other home services: No Alcohol intake: former Patient Tobacco Use Status: Never used Tobacco Cigarette Packs Per Day: 1 Advance Directives: No Advance Directives Information Provided: No service: No Current occupational status: unemployed Physical Exam Vital Signs: Vital Signs: Last Vital Signs Temp 98.3 F 09/12/22 05:37 Pulse 71 09/12/22 05:37 Resp 22 H 09/12/22 05:37 BP 143/64 H 09/12/22 05:37 Pulse Ox 94 09/12/22 05:37 O2 Del Method 09/12/22 05:37 O2 Flow Rate 2 09/12/22 05:37 BMI result Body Mass Index 31.8 Appearance: Alert. Oriented X3. No acute distress. Eyes: PERRLA, No Nystagmus ENT: Pharynx normal. Oral Mucosa moist Neck: Normal inspection. Neck supple. CVS: Normal heart rate and rhythm. Pulses normal. Respiratory: No respiratory distress. Equal air entry bilateral, bilateral rales++ Abdomen: Soft and nontender. Bowel sounds are present, no mass palpable, no CVA tenderness Skin: Skin warm and dry. Normal skin color. Normal skin turgor. Extremities: No lower extremity edema. No calf tenderness Neuro: Oriented X 3. No motor deficit. No sensory deficit.No cerebellar signs , cranial nerves II-XII intact Medications Administered Generic Name Dose Route Start Last Admin Trade Name Freq PRN Reason Stop Dose Admin Albuterol/Ipratropium 3 ml 09/12/22 00:29 09/12/22 00:44 Albuterol/Iprat 2.5/0.5mg 3 Ml Ampul.Neb INHALE 3 ml Q4H PRN Administration Wheezing Enoxaparin Sodium 30 mg 09/12/22 00:15 09/12/22 00:55 Enoxaparin Sodium 30 Mg/0.3 Ml Syringe SUBCUT 30 mg Q24H THAD Administration Methylprednisolone Sodium Succinate 40 mg 09/12/22 00:30 09/12/22 00:55 Methylprednisolone Sod Succ 40 Mg/Ml Vial IVPUSH 40 mg Q12H THAD Administration Discontinued Medications Generic Name Dose Route Start Last Admin Trade Name Freq PRN Reason Stop Dose Admin Sodium Chloride 1,000 mls @ 999 mls/hr 09/11/22 22:02 09/11/22 23:49 Ns IV 09/11/22 23:02 Infused .Q1H1M ONE Infusion Ceftriaxone Sodium 1 gm/ 50 mls @ 100 mls/hr 09/11/22 22:11 09/11/22 23:10 Sodium Chloride IV 09/11/22 22:40 Infused ONCE ONE Infusion Azithromycin 500 mg/ Sodium 250 mls @ 125 mls/hr 09/11/22 22:11 09/12/22 01:0 0 Chloride IV 09/12/22 00:10 Infused ONCE ONE Infusion Sodium Chloride 2,200 mls @ 2,200 mls/hr 09/11/22 23:04 09/12/22 01:53 Ns IV 09/12/22 00:03 Infused .Q1H STA Infusion Medical Decision Making Medical Decision Making MDM Narrative: patient with bilateral pneumonia with leukocytosis lactic acidosis meeting criteria for sepsis received IV antibiotic and IV fluids more than 30 cc/kilogram body weight focused exam for sepsis was done at 2330 Consult Healthcare Provider Management of the patient was discussed with: Hospitalist Lab Data [facility] Lab Attestation statement: I reviewed the patient's lab results. 09/11/22 21:35 09/11/22 21:35 Labs: Lab Results 09/11/22 09/11/22 09/11/22 Range/Units 21:35 21:35 21:35 WBC 31.6 H* (4.8-10.8) X10*3/uL RBC 4.20 (4.20-5.50) X10*6/uL Hgb 12.2 (12.0-16.0) g/dl Hct 38.1 (37.0-47.0) % MCV 90.7 (80.0-98.0) fL MCH 29.0 (27.0-33.0) pg MCHC 32.0 (31.0-35.0) g/dl RDW 13.2 (11.0-16.0) % Plt Count 271 (160-400) X10*3/uL MPV 11.3 (9.4-12.3) fL Immature Gran % (Auto) Cancelled Neut % (Auto) Cancelled Lymph % (Auto) Cancelled [place] % (Auto) Cancelled Eos % (Auto) Cancelled Baso % (Auto) Cancelled Lymph # (Auto) Cancelled [place] # (Auto) Cancelled Eos # (Auto) Cancelled Baso # (Auto) Cancelled Abs Immat Gran (auto) Cancelled Absolute Neuts (auto) Cancelled Absolute Nucleated RBC 0.000 (0.0-0.012) X10*3/uL Nucleated RBC % (auto) 0.0 (0.0-0.2) /100WBC Neutrophils % (Manual) 66 (45-73) % Band Neutrophils % 21 H (3-5) % Lymphocytes % (Manual) 7 L (20-40) % Monocytes % (Manual) 3 (2-11) % Metamyelocytes % 3 % Abs Neuts (Manual) 27.5 H (2.0-8.3) X10*3/uL Lymphocytes # (Manual) 2.2 (1.2-4.9) X10*3/uL Monocytes # (Manual) 0.9 (0.1-1.2) X10*3/uL Metamyelocytes # 0.9 X10*3/uL Platelet Estimate NORMAL (NORMAL) Plt Morphology Comment NORMAL RBC Morphology NORMAL Sodium 141 (135-145) mmol/L Potassium 4.7 (3.3-5.1) mmol/L Chloride 105 (96-108) mmol/L Carbon Dioxide 22 (22-29) mmol/L Anion Gap 19 (12-20) BUN 33 H (9-16) mg/dL Creatinine 2.14 H (0.5-1.4) mg/dL Estim Creat Clear Calc 17.8 Estimated GFR 22 Random Glucose 237 H (60-115) mg/dL Lactic Acid (0.5-2.0) mmol/L Calcium 9.8 (8.4-10.2) mg/dL Total Bilirubin 1.7 H (0.0-1.0) mg/dL AST 12 (5-31) U/L ALT 10 (0-31) U/L Alkaline Phosphatase 64 (39-117) U/L Troponin I High Sens (<3.5-17.0) ng/L B-Natriuretic Peptide (<100) pg/mL Total Protein 6.2 L (6.5-8.0) g/dL Albumin 3.7 (3.5-5.0) g/dL Influenza Type A (PCR) NEGATIVE (Negative) Influenza Type B (PCR) NEGATIVE (Negative) RSV RNA Qual (PCR) NEGATIVE (Negative) SARS-CoV-2 RNA (RT-PCR) NEGATIVE (Negative) 09/11/22 09/11/22 09/11/22 Range/Units 22:23 22:23 22:23 WBC (4.8-10.8) X10*3/uL RBC (4.20-5.50) X10*6/uL Hgb (12.0-16.0) g/dl Hct (37.0-47.0) % MCV (80.0-98.0) fL MCH (27.0-33.0) pg MCHC (31.0-35.0) g/dl RDW (11.0-16.0) % Plt Count (160-400) X10*3/uL MPV (9.4-12.3) fL Immature Gran % (Auto) Neut % (Auto) Lymph % (Auto) [place] % (Auto) Eos % (Auto) Baso % (Auto) Lymph # (Auto) [place] # (Auto) Eos # (Auto) Baso # (Auto) Abs Immat Gran (auto) Absolute Neuts (auto) Absolute Nucleated RBC (0.0-0.012) X10*3/uL Nucleated RBC % (auto) (0.0-0.2) /100WBC Neutrophils % (Manual) (45-73) % Band Neutrophils % (3-5) % Lymphocytes % (Manual) (20-40) % Monocytes % (Manual) (2-11) % Metamyelocytes % % Abs Neuts (Manual) (2.0-8.3) X10*3/uL Lymphocytes # (Manual) (1.2-4.9) X10*3/uL Monocytes # (Manual) (0.1-1.2) X10*3/uL Metamyelocytes # X10*3/uL Platelet Estimate (NORMAL) Plt Morphology Comment RBC Morphology Sodium (135-145) mmol/L Potassium (3.3-5.1) mmol/L Chloride (96-108) mmol/L Carbon Dioxide (22-29) mmol/L Anion Gap (12-20) BUN (9-16) mg/dL Creatinine (0.5-1.4) mg/dL Estim Creat Clear Calc Estimated GFR Random Glucose (60-115) mg/dL Lactic Acid 4.1 H* (0.5-2.0) mmol/L Calcium (8.4-10.2) mg/dL Total Bilirubin (0.0-1.0) mg/dL AST (5-31) U/L ALT (0-31) U/L Alkaline Phosphatase (39-117) U/L Troponin I High Sens 25.9 H D (<3.5-17.0) ng/L B-Natriuretic Peptide 701 H (<100) pg/mL Total Protein (6.5-8.0) g/dL Albumin (3.5-5.0) g/dL Influenza Type A (PCR) (Negative) Influenza Type B (PCR) (Negative) RSV RNA Qual (PCR) (Negative) SARS-CoV-2 RNA (RT-PCR) (Negative) Independent Interpretation I performed an independent interpretation of an: EKG Interpretation: normal sinus rhythm heart rate 63 beats per minute left bundle-branch block no acute ST changes no acute ischemia Discharge Plan Discharge Clinical Impression: Bilateral pneumonia, Benign paroxysmal positional vertigo Patient Disposition: Admitted As Inpatient
[2022-09-11 21:50] LABS: Hematocrit 38.1 % (37.0-47.0); Hemoglobin 12.2 g/dl (12.0-16.0); Mean Corpuscular Volume 90.7 fL (80.0-98.0); Mean Platelet Volume 11.3 fL (9.4-12.3); Platelet Count 271 X10*3/uL (160-400); Red Cell Distribution Width 13.2 % (11.0-16.0)
[2022-09-11 21:57] LABS: Alanine Aminotransferase 10 U/L (0-31); Albumin Level 3.7 g/dL (3.5-5.0); Alkaline Phosphatase 64 U/L (39-117); Anion Gap 19 (12-20); Aspartate Amino Transferase 12 U/L (5-31); Bilirubin Total 1.7 mg/dL (0.0-1.0); Blood Urea Nitrogen 33 mg/dL (9-16); Calcium 9.8 mg/dL (8.4-10.2); Carbon Dioxide 22 mmol/L (22-29); Chloride 105 mmol/L (96-108); Creatinine Clr Calc Pharmacy 17.8; Estimated Glomerular Filt Rate 22; Glucose Random 237 mg/dL (60-115); Potassium 4.7 mmol/L (3.3-5.1); Sodium 141 mmol/L (135-145); Total Protein 6.2 g/dL (6.5-8.0)
[2022-09-11 22:11] LABS: White Blood Count 31.6 X10*3/uL (4.8-10.8)
--- NOTE | 2022-09-11 22:16 | MHC.EDTECH ---
EKG WAS DONE IN TRIAGE WAS NOT DOCUMENTED
[2022-09-11 22:22] LABS: Influenza A PCR NEGATIVE (Negative); Influenza B PCR NEGATIVE (Negative); Resp Syncy Virus RNA Qual PCR NEGATIVE (Negative); SARS COV2 PCR INHOUSE NEGATIVE (Negative)
[2022-09-11] MEDS: 0.9 % Sodium Chloride 1,000 ML 999 ML IV (22:28)
[2022-09-11] MEDS: cefTRIAXone sodium 1 GM in 0.9 % Sodium Chloride 50 ML IV (22:28)
--- NOTE | 2022-09-11 22:37 | PC.NURSE ---
delay in iv placement this rn attempted x2. [employer] charger insulation able to assist with iv placement. once iv placed pt medicated according to mar
[2022-09-11 22:41] LABS: Neutrophils Percent Manual 66 % (45-73)
[2022-09-11] MEDS: Azithromycin 500 MG in 0.9 % Sodium Chloride 250 ML 125 MG IV (22:55)
[2022-09-11 22:56] LABS: B Type Natriuretic Peptide 701 pg/mL (<100); Troponin-I High Sensitivity 25.9 ng/L (<3.5-17.0)
[2022-09-11 22:58] LABS: Band Neutrophils Percent 21 % (3-5); Lymphocytes Absolute Manual 2.2 X10*3/uL (1.2-4.9); Lymphocytes Percent Manual 7 % (20-40); Metamyelocytes Absolute 0.9 X10*3/uL; Metamyelocytes Percent 3 %; Monocytes Absolute Manual 0.9 X10*3/uL (0.1-1.2); Monocytes Percent Manual 3 % (2-11); Neutrophils Absolute Manual 27.5 X10*3/uL (2.0-8.3)
[2022-09-11 23:03] LABS: Lactic Acid 4.1 mmol/L (0.5-2.0)
[2022-09-11 23:09] LABS: Platelet Estimate NORMAL (NORMAL); Platelet Morphology Comment NORMAL; RBC Morphology NORMAL
[2022-09-11] MEDS: SODIUM CHLORIDE 2200 ML IV (23:48)
[2022-09-12] VITALS (16 sets, daily range): BP systolic 112–166; BP diastolic 36–81; PULSE 61–94; RESP 17–34; TEMP 36.2–36.8; O2SAT 88–98; BMI 31.4
--- NOTE | 2022-09-12 00:20 | PC.NURSE ---
this rn checked pt SpO2. pt desat to 88%. dr scott made aware. observed pt at bedside at this time. order placed for iv lasix and 2 LPM O2.
[2022-09-12 00:27] LABS: Reflex Lactate? Lactic Acid Added
--- NOTE | 2022-09-12 00:30 | PM.IMHP ---
History of Present Illness Date of Service: 09/12/22 Chief Complaint: Dyspnea This is a 82-year-old female with pertinent history of COPD, ytx-xwvwrgi-zptdmhmrs diabetes mellitus, essential hypertension, gastroesophageal reflux disease who presents to the emergency department for evaluation of dyspnea. Patient states she has been having productive cough for the last few days. It is associated with fever, chills and wheezing. Prior to arrival, patient states she had an episode of dizziness. No chest discomfort, palpitations, nausea, vomiting, abdominal pain, changes in urinary or bowel habits. In the emergency department, patient was found to be septic and imaging consistent with left-sided pneumonia. Review of Systems Constitutional: Constitutional: Reports body ache(s), Reports chills, Reports fever(s), Reports lethargy and Reports malaise ENT: Reports dizziness Cardiovascular: Cardiovascular: Reports dyspnea on exertion Respiratory: Respiratory: Reports cough, Reports excessive phlegm production, Reports dyspnea on exertion and Reports wheezing Gastrointestinal: Gastrointestinal: Reports no additional gastrointestinal complaints Genitourinary: Genitourinary: Reports no additional female genitourinary complaints Musculoskeletal: Musculoskeletal: Reports no additional musculoskeletal complaints Integumentary/Breasts: Skin/Breast: Reports system reviewed and no additional complaints, except as docu Neurologic: Reports dizziness Allergic/Immunologic: Allergic/Immunologic: Reports wheezing [facility] Medical History Arthritis COPD (chronic obstructive pulmonary disease) Restrictive lung disease Family History Mother Diabetes Maternal Grandmother Diabetes Surgical History Hx of cholecystectomy Social History Household Members: Children Housing: Apartment Are you a primary specialist wound care to a significant other at home: No Do you presently have visiting nurse or other home services: No Alcohol intake: former Patient Tobacco Use Status: Never used Tobacco Cigarette Packs Per Day: 1 Advance Directives: No Advance Directives Information Provided: No service: No Current occupational status: unemployed Meds Allergies Allergy/AdvReac Type Severity Reaction Status Date / Time latex [LATEX] Allergy Unknown RASH Verified 09/11/22 20:58 pineapple [PINEAPPLE] Allergy Unknown HIVES Verified 09/11/22 20:58 enalaprilat [From Vasotec] AdvReac Mild Unknown Verified 09/11/22 20:58 Active Medications: Current Medications Acetaminophen (Acetaminophen 325 Mg Tablet) 650 mg PO Q6H PRN PRN Reason: Pain, Mild (Pain Scale 1-3) Albuterol/Ipratropium (Albuterol/Iprat 2.5/0.5mg 3 Ml Ampul.Neb) 3 ml INHALE RQ4H WHILE AWAKE [facility] Dextrose (Dextrose 50 % 25 Gm/50 Ml Syringe) 25 gm IVPUSH Q15M PRN; Protocol PRN Reason: per Hypoglycemia Standing Ord. Enoxaparin Sodium (Enoxaparin Sodium 30 Mg/0.3 Ml Syringe) 30 mg SUBCUT Q24H [facility] Glucose (Glucose Gel 15 Gm Gel..Gram.) 15 gm PO Q15M PRN; Protocol PRN Reason: per Hypoglycemia Standing Ord. Ceftriaxone Sodium 1 gm/ (Sodium Chloride) 50 mls @ 100 mls/hr IV Q24H [facility] Azithromycin 500 mg/ Sodium (Chloride) 250 mls @ 125 mls/hr IV Q24H [facility] Insulin Human Lispro (Insulin Lispro 100 Unit/Ml 3 Ml Vial) 0 unit SUBCUT QIDACHS [facility]; Protocol Melatonin (Melatonin 3 Mg Tablet) 6 mg PO BEDTIME PRN PRN Reason: Insomnia Methylprednisolone Sodium Succinate (Methylprednisolone Sod Succ 40 Mg/Ml Vial) 40 mg IVPUSH Q12H [facility] Ondansetron HCl (Ondansetron Hcl 4 Mg/2 Ml Vial) 4 mg IVPUSH Q8H PRN PRN Reason: Nausea and Vomiting Sodium Chloride (0.9 % Sodium Chloride Flush 3 Ml Syringe) 3 ml IVFLUSH QSHIFT [facility] Home Medications Medication Instructions Recorded Confirmed Last Taken Type alcohol swabs 1 pad topical DAILY 06/15/20 08/17/22 Unknown History aspirin 81 mg tablet,delayed 81 mg PO DAILY 06/15/20 08/17/22 Unknown History release blood sugar diagnostic #10 ea 06/15/20 08/17/22 Unknown History folic acid 1 mg tablet 1 mg PO DAILY 06/15/20 08/17/22 Unknown History glipizide 10 mg tablet 10 mg PO BID 06/15/20 08/17/22 Unknown History inhalat.spacing dev,large mask #1 ea 06/15/20 08/17/22 Unknown History lancets 30 gauge #100 ea 06/15/20 08/17/22 Unknown History magnesium oxide 400 mg (241.3 mg 400 mg PO BID 06/15/20 08/17/22 Unknown History magnesium) tablet metformin 1,000 mg tablet 1,000 mg PO BID 06/15/20 08/17/22 Unknown History omeprazole 20 mg capsule,delayed 20 mg PO DAILY 06/15/20 08/17/22 Unknown History release prednisone 5 mg tablet 5 mg PO DAILY 06/15/20 08/17/22 Unknown History verapamil 300 mg capsule 24hr 300 mg PO DAILY 06/15/20 08/17/[address],ext.release meclizine 25 mg tablet 1 tab PO TID 08/17/22 08/17/22 Unknown History Physical Exam Vital Signs and Narrative: Vital Signs: Last Vital Signs Temp 98.8 F 09/11/22 23:51 Pulse 88 09/11/22 23:51 Resp 21 H 09/12/22 00:21 BP 133/64 09/11/22 23:51 Pulse Ox 88 L 09/12/22 00:21 O2 Del Method 09/12/22 00:21 BMI result Body Mass Index 31.8 Elderly female lying in bed in distress on 2 L supplemental oxygen Neck supple, no JVD Regular rate and rhythm, S1-S2 heard Bilateral wheezing appreciated with left-sided crackles Abdomen soft nontender, no guarding, no rigidity Patient is awake, alert and oriented to self, place, disoriented to time and person ; no focal motor deficit Psych: Normal mood Results Labs 09/11/22 21:35 09/11/22 21:35 Labs: Laboratory Results - last 24 hr 09/11/22 09/11/22 09/11/22 21:35 21:35 21:35 MCV 90.7 MCH 29.0 MCHC 32.0 RDW 13.2 Plt Count 271 MPV 11.3 Immature Gran % (Auto) Cancelled Neut % (Auto) Cancelled Lymph % (Auto) Cancelled [place] % (Auto) Cancelled Eos % (Auto) Cancelled Baso % (Auto) Cancelled Lymph # (Auto) Cancelled [place] # (Auto) Cancelled Eos # (Auto) Cancelled Baso # (Auto) Cancelled Abs Immat Gran (auto) Cancelled Absolute Neuts (auto) Cancelled Absolute Nucleated RBC 0.000 Nucleated RBC % (auto) 0.0 Neutrophils % (Manual) 66 Band Neutrophils % 21 H Lymphocytes % (Manual) 7 L Monocytes % (Manual) 3 Metamyelocytes % 3 Abs Neuts (Manual) 27.5 H Lymphocytes # (Manual) 2.2 Monocytes # (Manual) 0.9 Metamyelocytes # 0.9 Platelet Estimate NORMAL Plt Morphology Comment NORMAL RBC Morphology NORMAL Anion Gap 19 Estim Creat Clear Calc 17.8 Estimated GFR 22 Random Glucose 237 H Lactic Acid Calcium 9.8 Total Bilirubin 1.7 H AST 12 ALT 10 Alkaline Phosphatase 64 Troponin I High Sens B-Natriuretic Peptide Total Protein 6.2 L Albumin 3.7 Influenza Type A (PCR) NEGATIVE Influenza Type B (PCR) NEGATIVE RSV RNA Qual (PCR) NEGATIVE SARS-CoV-2 RNA (RT-PCR) NEGATIVE 09/11/22 09/11/22 09/11/22 22:23 22:23 22:23 MCV MCH MCHC RDW Plt Count MPV Immature Gran % (Auto) Neut % (Auto) Lymph % (Auto) [place] % (Auto) Eos % (Auto) Baso % (Auto) Lymph # (Auto) [place] # (Auto) Eos # (Auto) Baso # (Auto) Abs Immat Gran (auto) Absolute Neuts (auto) Absolute Nucleated RBC Nucleated RBC % (auto) Neutrophils % (Manual) Band Neutrophils % Lymphocytes % (Manual) Monocytes % (Manual) Metamyelocytes % Abs Neuts (Manual) Lymphocytes # (Manual) Monocytes # (Manual) Metamyelocytes # Platelet Estimate Plt Morphology Comment RBC Morphology Anion Gap Estim Creat Clear Calc Estimated GFR Random Glucose Lactic Acid 4.1 H* Calcium Total Bilirubin AST ALT Alkaline Phosphatase Troponin I High Sens 25.9 H D B-Natriuretic Peptide 701 H Total Protein Albumin Influenza Type A (PCR) Influenza Type B (PCR) RSV RNA Qual (PCR) SARS-CoV-2 RNA (RT-PCR) Imaging Radiologist's Impressions: Impressions Chest X-Ray 09/11/22 22:25 IMPRESSION: Peripheral airspace opacity in the left midlung. This is consistent with pneumonia. Assessment and Plan (1) Hypoxia: Status: Acute (2) COPD (chronic obstructive pulmonary disease): Status: Acute Plan This is a 82-year-old female with pertinent history of COPD, esd-iwygppy-cpkutzldr diabetes mellitus, essential hypertension, gastroesophageal reflux disease who presents to the emergency department for evaluation of dyspnea. #. Acute hypoxemic respiratory failure due to COPD exacerbation in the setting of pneumonia: Continue supplemental oxygen and wean as tolerated. Maintain oxygen saturation greater than 88%. Currently on 2 L O2. Initiating systemic steroids and scheduled and p.r.n. DuoNebs. #. Sepsis due to left-sided pneumonia: Initiating empiric IV antibiotics. Resuscitated with IV crystalloid in the ER. Lactic acid and blood culture obtained. Sputum culture pending #. Acute lactic acidosis due to sepsis #. Presyncope due to above #. Acute kidney injury, prerenal due to intravascular volume depletion: Resuscitated with IV crystalloids. Monitor creatinine and urine output with fluid resuscitation. Avoid nephrotoxins #. Ieo-tbygdnn-nfuckjxzh diabetes mellitus with hyperglycemia: Initiating Accu-Cheks with sliding scale insulin. #. Gastroesophageal reflux disease: On PPI #. Elevated troponin, type 2 due to increased demand Med rec pending DVT prophylaxis: Lovenox 30 mg daily Regular diet Full Code. Discussed with patient Admit as inpatient and will require two night minimum hospital stay for IV antibiotics and supplemental oxygen Time Spent With Patient Time: Total time managing care of this patient today ____ minutes. Quality Stroke Does the patient have a stroke diagnosis?: No VTE Prior VTE?: No VTE Risk Level:: Medical - moderate - high VTE Device Contraindication: Treatment Not Indicated VTE Drug Contraindication: N/A - Med Ordered
--- NOTE | 2022-09-12 00:42 | PC.NURSE ---
initial 1,000ml NS not given as fluid noted to be duplicate order per md TOTAL fluid to be infused 2,[address] Ordoñez. hospitalist dr ordoñez met with pt at bedside. dr ordoñez states to discontinue lasix. per md will discontinue order.
[2022-09-12] MEDS: Albuterol/Iprat 2.5/0.5MG 3 ML AMPUL.NEB INHALE ×3 (00:44→21:04)
[2022-09-12] MEDS: methylPREDNISolone Sod Succ 40 MG/ML VIAL IVPUSH ×2 (00:55→13:44)
[2022-09-12] MEDS: Enoxaparin Sodium 30 MG/0.3 ML SYRINGE SUBCUT (00:55)
[2022-09-12 02:20] LABS: ~Lactic Acid-LAB USE ONLY 3.4 mmol/L (0.5-2.0)
[2022-09-12 04:03] LABS: Reflex Lactate? 2 Y
[2022-09-12 05:06] LABS: Hematocrit 34.9 % (37.0-47.0); Hemoglobin 11.1 g/dl (12.0-16.0); Mean Corpuscular HGB Conc 31.8 g/dl (31.0-35.0); Mean Corpuscular Hemoglobin 29.1 pg (27.0-33.0); Mean Corpuscular Volume 91.4 fL (80.0-98.0); Mean Platelet Volume 10.6 fL (9.4-12.3); Platelet Count 245 X10*3/uL (160-400); Red Blood Count 3.82 X10*6/uL (4.20-5.50); Red Cell Distribution Width 13.2 % (11.0-16.0)
[2022-09-12 05:08] LABS: White Blood Count 30.9 X10*3/uL (4.8-10.8)
[2022-09-12 05:16] LABS: ~Lactic Acid-LAB USE ONLY 1.8 mmol/L (0.5-2.0)
--- NOTE | 2022-09-12 05:17 | PC.NURSE ---
Telephone call received from the lab with critical WBC count 30.9. Dr. Sabillon notified via [employer] message.
[2022-09-12 05:20] LABS: Anion Gap 16 (12-20); Blood Urea Nitrogen 30 mg/dL (9-16); Calcium 8.6 mg/dL (8.4-10.2); Carbon Dioxide 21 mmol/L (22-29); Chloride 111 mmol/L (96-108); Creatinine Clr Calc Pharmacy 24.5; Estimated Glomerular Filt Rate 32; Glucose Random 217 mg/dL (60-115); Potassium 4.8 mmol/L (3.3-5.1); Sodium 143 mmol/L (135-145)
[2022-09-12 05:31] LABS: Band Neutrophils Percent 15 % (3-5); Basophils Abs Manual 0.3 X10*3/uL (0.0-0.2); Basophils Percent Manual 1 % (0-2); Lymphocytes Absolute Manual 0.3 X10*3/uL (1.2-4.9); Lymphocytes Percent Manual 1 % (20-40); Macrocytosis 1+ (5-14) /OIF; Monocytes Absolute Manual 0.9 X10*3/uL (0.1-1.2); Monocytes Percent Manual 3 % (2-11); Neutrophils Absolute Manual 29.4 X10*3/uL (2.0-8.3); Neutrophils Percent Manual 80 % (45-73); Platelet Estimate NORMAL (NORMAL); Platelet Morphology Comment NORMAL; RBC Morphology NORMAL
[2022-09-12 05:32] LABS: Smudge Cells PRESENT
[2022-09-12 07:59] LABS: Glucose, Whole Blood 217 mg/dL (60-115)
--- NOTE | 2022-09-12 08:23 | PHA.MEDREC ---
Pharmacy Consult ? Medication Reconciliation Pharmacy has completed the medication reconciliation. Completed med rec with patient by reviewing claim history. She did her best by memory but she gave a list to courtesy driver that was never handed over to the ED.
[2022-09-12 09:00] LABS: Troponin-I High Sensitivity 15.9 ng/L (<3.5-17.0)
[2022-09-12 09:14] LABS: Procalcitonin 6.57 ng/mL
[2022-09-12] MEDS: Insulin Lispro 100 UNIT/ML 3 ML VIAL SUBCUT ×4 (10:11→20:57)
[2022-09-12] MEDS: 0.9 % Sodium Chloride Flush 3 ML SYRINGE IVFLUSH ×2 (10:12→20:58)
--- NOTE | 2022-09-12 10:18 | PC.NURSE ---
pt's daughter at bedside, pt is a/o no sob/shruthi noted speaks in full sentences. lungs - diminished. hearts sounds regular. abd soft and non-tender, bs + xx 4 quads. no edema noted.
--- NOTE | 2022-09-12 10:19 | PC.NURSE ---
pt/phani aware of plan of care.
--- NOTE | 2022-09-12 11:24 | PC.NURSE ---
pt's son kitty ([phone]) called [facility] [place] and was updated on pt status.
[2022-09-12 12:05] LABS: Glucose, Whole Blood 316 mg/dL (60-115)
--- NOTE | 2022-09-12 13:29 | P.PNIM_ITS ---
Subjective Subjective Date of Service: 09/12/22 Interval History: This history was taken in [place] from the patient. cough improving no fever 2/2 BCx positive for GPCs in chains Review of Systems Review of Systems: Yes all other systems are reviewed and are negative Physical Exam Vital Signs: Vital Signs: Last Vital Signs Temp 97.2 F 09/12/22 11:57 Pulse 78 09/12/22 11:57 Resp 17 09/12/22 11:57 BP 123/59 L 09/12/22 11:57 Pulse Ox 94 09/12/22 11:57 O2 Del Method Nasal Cannula 09/12/22 11:57 O2 Flow Rate 3 09/12/22 11:57 BMI result Body Mass Index 31.8 Const: Other: Gen: in no acute distress HEENT: sclera anicteric, moist mucus membranes Neck: supple Lungs: insp crackles L side Heart: regular rate and rhythm, no murmurs Abd: soft, non-tender, non-distended Ext: no edema Skin: warm/well-perfused Neuro: alert and oriented x3, no focal findings Psych: appropriate affect Objective Data Active Medications Acetaminophen (Acetaminophen 325 Mg Tablet) 650 mg PO Q6H PRN PRN Reason: Pain, Mild (Pain Scale 1-3) Albuterol/Ipratropium (Albuterol/Iprat 2.5/0.5mg 3 Ml Ampul.Neb) 3 ml INHALE RQ4H WHILE AWAKE [facility] Last Admin: 09/12/22 11:07 Dose: 3 ml Documented By: KITTY Albuterol/Ipratropium (Albuterol/Iprat 2.5/0.5mg 3 Ml Ampul.Neb) 3 ml INHALE Q4H PRN PRN Reason: Wheezing Last Admin: 09/12/22 00:44 Dose: 3 ml Documented By: KENNY Dextrose (Dextrose 50 % 25 Gm/50 Ml Syringe) 25 gm IVPUSH Q15M PRN; Protocol PRN Reason: per Hypoglycemia Standing Ord. Enoxaparin Sodium (Enoxaparin Sodium 30 Mg/0.3 Ml Syringe) 30 mg SUBCUT Q24H [facility] Last Admin: 09/12/22 00:55 Dose: 30 mg Documented By: GIOVANNY Glucose (Glucose Gel 15 Gm Gel..Gram.) 15 gm PO Q15M PRN; Protocol PRN Reason: per Hypoglycemia Standing Ord. Ceftriaxone Sodium 1 gm/ (Sodium Chloride) 50 mls @ 100 mls/hr IV Q24H [facility] Azithromycin 500 mg/ Sodium (Chloride) 250 mls @ 125 mls/hr IV Q24H [facility] Insulin Human Lispro (Insulin Lispro 100 Unit/Ml 3 Ml Vial) 0.1 - 10 unit SUBCUT QIDACHS [facility]; Protocol Last Admin: 09/12/22 10:11 Dose: 4 unit Documented By: LOVELY Melatonin (Melatonin 3 Mg Tablet) 6 mg PO BEDTIME PRN PRN Reason: Insomnia Methylprednisolone Sodium Succinate (Methylprednisolone Sod Succ 40 Mg/Ml Vial) 40 mg IVPUSH Q12H [facility] Last Admin: 09/12/22 00:55 Dose: 40 mg Documented By: GIOVANNY Ondansetron HCl (Ondansetron Hcl 4 Mg/2 Ml Vial) 4 mg IVPUSH Q8H PRN PRN Reason: Nausea and Vomiting Pharmacy Consult (Consult Rx Perform Med Rec) 1 each MISCELLANE ONCE PRN PRN Reason: Consult order Sodium Chloride (0.9 % Sodium Chloride Flush 3 Ml Syringe) 3 ml IVFLUSH QSHIFT [facility] Last Admin: 09/12/22 10:12 Dose: 3 ml Documented By: LOVELY Labs 09/12/22 04:52 09/12/22 04:52 Labs: Laboratory Results - last 24 hr 09/11/22 09/11/22 09/11/22 21:35 21:35 21:35 MCV 90.7 MCH 29.0 MCHC 32.0 RDW 13.2 Plt Count 271 MPV 11.3 Immature Gran % (Auto) Cancelled Neut % (Auto) Cancelled Lymph % (Auto) Cancelled [place] % (Auto) Cancelled Eos % (Auto) Cancelled Baso % (Auto) Cancelled Lymph # (Auto) Cancelled [place] # (Auto) Cancelled Eos # (Auto) Cancelled Baso # (Auto) Cancelled Abs Immat Gran (auto) Cancelled Absolute Neuts (auto) Cancelled Absolute Nucleated RBC 0.000 Nucleated RBC % (auto) 0.0 Neutrophils % (Manual) 66 Band Neutrophils % 21 H Lymphocytes % (Manual) 7 L Monocytes % (Manual) 3 Basophils % (Manual) Metamyelocytes % 3 Abs Neuts (Manual) 27.5 H Lymphocytes # (Manual) 2.2 Monocytes # (Manual) 0.9 Basophils # (Manual) Metamyelocytes # 0.9 Smudge Cells Platelet Estimate NORMAL Plt Morphology Comment NORMAL RBC Morphology NORMAL Macrocytosis Anion Gap 19 Estim Creat Clear Calc 17.8 Estimated GFR 22 POC Glucose Random Glucose 237 H Lactic Acid Lactic Acid F/U @ 2Hr Lactic Acid F/U @ 4Hr Calcium 9.8 Total Bilirubin 1.7 H AST 12 ALT 10 Alkaline Phosphatase 64 Troponin I High Sens B-Natriuretic Peptide Total Protein 6.2 L Albumin 3.7 Procalcitonin Influenza Type A (PCR) NEGATIVE Influenza Type B (PCR) NEGATIVE RSV RNA Qual (PCR) NEGATIVE SARS-CoV-2 RNA (RT-PCR) NEGATIVE 09/11/22 09/11/22 09/11/22 22:23 22:23 22:23 MCV MCH MCHC RDW Plt Count MPV Immature Gran % (Auto) Neut % (Auto) Lymph % (Auto) [place] % (Auto) Eos % (Auto) Baso % (Auto) Lymph # (Auto) [place] # (Auto) Eos # (Auto) Baso # (Auto) Abs Immat Gran (auto) Absolute Neuts (auto) Absolute Nucleated RBC Nucleated RBC % (auto) Neutrophils % (Manual) Band Neutrophils % Lymphocytes % (Manual) Monocytes % (Manual) Basophils % (Manual) Metamyelocytes % Abs Neuts (Manual) Lymphocytes # (Manual) Monocytes # (Manual) Basophils # (Manual) Metamyelocytes # Smudge Cells Platelet Estimate Plt Morphology Comment RBC Morphology Macrocytosis Anion Gap Estim Creat Clear Calc Estimated GFR POC Glucose Random Glucose Lactic Acid 4.1 H* Lactic Acid F/U @ 2Hr Lactic Acid F/U @ 4Hr Calcium Total Bilirubin AST ALT Alkaline Phosphatase Troponin I High Sens 25.9 H D B-Natriuretic Peptide 701 H Total Protein Albumin Procalcitonin Influenza Type A (PCR) Influenza Type B (PCR) RSV RNA Qual (PCR) SARS-CoV-2 RNA (RT-PCR) 09/12/22 09/12/22 09/12/22 01:58 04:52 04:52 MCV 91.4 MCH 29.1 MCHC 31.8 RDW 13.2 Plt Count 245 MPV 10.6 Immature Gran % (Auto) Cancelled Neut % (Auto) Cancelled Lymph % (Auto) Cancelled [place] % (Auto) Cancelled Eos % (Auto) Cancelled Baso % (Auto) Cancelled Lymph # (Auto) Cancelled [place] # (Auto) Cancelled Eos # (Auto) Cancelled Baso # (Auto) Cancelled Abs Immat Gran (auto) Cancelled Absolute Neuts (auto) Cancelled Absolute Nucleated RBC 0.000 Nucleated RBC % (auto) 0.0 Neutrophils % (Manual) 80 H Band Neutrophils % 15 H Lymphocytes % (Manual) 1 L Monocytes % (Manual) 3 Basophils % (Manual) 1 Metamyelocytes % Abs Neuts (Manual) 29.4 H Lymphocytes # (Manual) 0.3 L Monocytes # (Manual) 0.9 Basophils # (Manual) 0.3 H Metamyelocytes # Smudge Cells PRESENT Platelet Estimate NORMAL Plt Morphology Comment NORMAL RBC Morphology NORMAL Macrocytosis 1+ (5-14) Anion Gap 16 Estim Creat Clear Calc 24.5 Estimated GFR 32 POC Glucose Random Glucose 217 H Lactic Acid Lactic Acid F/U @ 2Hr 3.4 H* Lactic Acid F/U @ 4Hr Calcium 8.6 D Total Bilirubin AST ALT Alkaline Phosphatase Troponin I High Sens B-Natriuretic Peptide Total Protein Albumin Procalcitonin Influenza Type A (PCR) Influenza Type B (PCR) RSV RNA Qual (PCR) SARS-CoV-2 RNA (RT-PCR) 09/12/22 09/12/22 09/12/22 04:52 07:40 08:26 MCV MCH MCHC RDW Plt Count MPV Immature Gran % (Auto) Neut % (Auto) Lymph % (Auto) [place] % (Auto) Eos % (Auto) Baso % (Auto) Lymph # (Auto) [place] # (Auto) Eos # (Auto) Baso # (Auto) Abs Immat Gran (auto) Absolute Neuts (auto) Absolute Nucleated RBC Nucleated RBC % (auto) Neutrophils % (Manual) Band Neutrophils % Lymphocytes % (Manual) Monocytes % (Manual) Basophils % (Manual) Metamyelocytes % Abs Neuts (Manual) Lymphocytes # (Manual) Monocytes # (Manual) Basophils # (Manual) Metamyelocytes # Smudge Cells Platelet Estimate Plt Morphology Comment RBC Morphology Macrocytosis Anion Gap Estim Creat Clear Calc Estimated GFR POC Glucose 217 H Random Glucose Lactic Acid Lactic Acid F/U @ 2Hr Lactic Acid F/U @ 4Hr 1.8 Calcium Total Bilirubin AST ALT Alkaline Phosphatase Troponin I High Sens 15.9 B-Natriuretic Peptide Total Protein Albumin Procalcitonin Influenza Type A (PCR) Influenza Type B (PCR) RSV RNA Qual (PCR) SARS-CoV-2 RNA (RT-PCR) 09/12/22 09/12/22 08:26 11:56 MCV MCH MCHC RDW Plt Count MPV Immature Gran % (Auto) Neut % (Auto) Lymph % (Auto) [place] % (Auto) Eos % (Auto) Baso % (Auto) Lymph # (Auto) [place] # (Auto) Eos # (Auto) Baso # (Auto) Abs Immat Gran (auto) Absolute Neuts (auto) Absolute Nucleated RBC Nucleated RBC % (auto) Neutrophils % (Manual) Band Neutrophils % Lymphocytes % (Manual) Monocytes % (Manual) Basophils % (Manual) Metamyelocytes % Abs Neuts (Manual) Lymphocytes # (Manual) Monocytes # (Manual) Basophils # (Manual) Metamyelocytes # Smudge Cells Platelet Estimate Plt Morphology Comment RBC Morphology Macrocytosis Anion Gap Estim Creat Clear Calc Estimated GFR POC Glucose 316 H Random Glucose Lactic Acid Lactic Acid F/U @ 2Hr Lactic Acid F/U @ 4Hr Calcium Total Bilirubin AST ALT Alkaline Phosphatase Troponin I High Sens B-Natriuretic Peptide Total Protein Albumin Procalcitonin 6.57 Influenza Type A (PCR) Influenza Type B (PCR) RSV RNA Qual (PCR) SARS-CoV-2 RNA (RT-PCR) Microbiology Microbiology Results: Microbiology 09/11/22 22:23 Blood Culture - Preliminary Blood - Venous Prelim: GPC Gram Stain only 09/11/22 22:23 Blood Culture - Preliminary Blood - Venous Prelim: GPC Gram Stain only Assessment and Plan (1) Bilateral pneumonia: Status: Acute Plan hospital d#2 82yo F with COPD, DM2, HTN, GERD presenting with several days of dyspnea, septic from PNA + bacteremia # GPC bacteremia - vancomycin d#1, TTE, surveillance cultures, follow speciation + susceptibilities # PNA - ceftriaxone + azithromycin d#2, vancomycin as above, trend PCT, follow BCx # sev sepsis due to PNA - lactate normalized # acute hypoxic rep failure - wean O2 as michelle # presycnope - due to above, resolved # KLAUS/CKD3 - monitor SCr # elevated Tn-I - likely demand ischemia due to sepsis # HTN - continue verapamil # DM2 - correction-dose lispro # GERD - PPI # VTE ppx: LMWH # dispo: anticipate home after bacteremia cleared + definitive treatment plan in place In my clinical judgment, the patient requires continued inpatient hospitalization for the following reasons: IV ABX + bacteremia Time Spent With Patient Time: Total time managing care of this patient today ___40_ minutes. Quality Stroke Does the patient have a stroke diagnosis?: No VTE Prior VTE?: No VTE Risk Level:: Medical - moderate - high VTE Device Contraindication: Treatment Not Indicated VTE Drug Contraindication: N/A - Med Ordered
--- NOTE | 2022-09-12 14:33 | MHC.CM.PN ---
IMM 09/12/22 Female 82 DX PNA. Dtr Demetra is HCP. Information for CM assessment was gathered from the EMR and from PTs dtr/hcp Demetra. She lives with her disabled son and grandson. Patient has home making services in place. She uses a cane to ambulate. Per dtr Pt has new vertigo and needs assist with ADLs. She has been vaxxed x2. DP home with services. Patients dtr will provide transportation home.
[2022-09-12] MEDS: vancomycin HCL 1,000 MG, vancomycin HCL 750 MG in 0.9 % Sodium Chloride 500 ML 267.5 MG IV (14:59)
--- NOTE | 2022-09-12 15:24 | PHA.PROG ---
Admission Date/Time: September 12, 2022 00:12 Indication: Bacteremia Weight in k.668 kg Adjusted body weight in Kg: [place] body weight in Kg: Obesity Dosing Indication % IBW: Serum Creatinine - Last 168 Hours 09/11/22 09/12/22 21:35 04:52 Creatinine 2.14 H 1.55 H Estimated CrCl and GFR - Last 168 Hours 09/11/22 09/12/22 21:35 04:52 Estim Creat Clear Calc 17.8 24.5 Estimated GFR 22 32 Vancomycin Loading Dose: 1750 mg Current Vancomycin Dosing Regimen: 750 mg Q24H Date and Time for next Vancomycin Level to be drawn: 09/14 @ 1300 Pharmacist Comments on Vancomycin Plan: Patient received an adequate load dosing of vancomycin 1750 mg in the ER 09/12 @ 1459 Maintenance dose vanco 750 mg Q24H is scheduled to start 09/13 @ 1500. Expected AUC 472 with a trough of 15.78. Due to patient's age and weight will get level prior to 3rd dose to access for safety. Pharmacy will continue to monitor renal function daily Yulissa Goldman PharmD Vancomycin dosing will take advantage of [employer] as a clinical decision support tool that uses Bayesian modeling to calculate individual patient's pharmacokinetic parameters and forecast the patient's drug concentration time course with the target goal AUC 24 range of 400 - 600 mg/L/hr.
--- NOTE | 2022-09-12 15:45 | PC.NURSE ---
Addendum entered by Yoli Jackson RN 09/12/22 19:12: report given to BETTY Andre Original Note: report received from BETTY Jha pt is alert and oriented resting comfortably in ed no signs of acute distress notice breathing equally unlabored pt on continuos cardiac monitoring close monitoring maintained
[2022-09-12 17:52] LABS: Glucose, Whole Blood 186 mg/dL (60-115)
[2022-09-12 20:14] LABS: Glucose, Whole Blood 254 mg/dL (60-115)
[2022-09-12] MEDS: cefTRIAXone sodium 1 GM in 0.9 % Sodium Chloride 50 ML IV (20:57)
[2022-09-12] MEDS: Ferrous Sulfate 324 MG TABLET.DR PO (20:57)
[2022-09-12] MEDS: Magnesium Oxide 400 MG TABLET PO (20:57)
[2022-09-12] MEDS: Azithromycin 500 MG in 0.9 % Sodium Chloride 250 ML 125 MG IV (21:55)
[2022-09-13] VITALS (7 sets, daily range): BP systolic 124–172; BP diastolic 63–95; PULSE 60–85; RESP 17–18; TEMP 36–36.7; O2SAT 93–99
[2022-09-13] MEDS: methylPREDNISolone Sod Succ 40 MG/ML VIAL IVPUSH ×3 (00:14→22:55)
[2022-09-13] MEDS: Enoxaparin Sodium 30 MG/0.3 ML SYRINGE SUBCUT ×2 (00:14→22:55)
[2022-09-13] MEDS: Omeprazole 20 MG CAPSULE.DR PO (05:22)
[2022-09-13 06:22] LABS: Hematocrit 31.7 % (37.0-47.0); Hemoglobin 10.2 g/dl (12.0-16.0); Mean Corpuscular HGB Conc 32.2 g/dl (31.0-35.0); Mean Corpuscular Hemoglobin 29.4 pg (27.0-33.0); Mean Corpuscular Volume 91.4 fL (80.0-98.0); Mean Platelet Volume 11.4 fL (9.4-12.3); Platelet Count 247 X10*3/uL (160-400); Red Blood Count 3.47 X10*6/uL (4.20-5.50); Red Cell Distribution Width 13.2 % (11.0-16.0); White Blood Count 23.8 X10*3/uL (4.8-10.8)
[2022-09-13 06:39] LABS: Anion Gap 14 (12-20); Blood Urea Nitrogen 28 mg/dL (9-16); Calcium 8.8 mg/dL (8.4-10.2); Carbon Dioxide 23 mmol/L (22-29); Chloride 110 mmol/L (96-108); Creatinine Clr Calc Pharmacy 33.3; Estimated Glomerular Filt Rate 46; Glucose Random 279 mg/dL (60-115); Potassium 4.4 mmol/L (3.3-5.1); Sodium 143 mmol/L (135-145)
--- NOTE | 2022-09-13 07:00 | CA_ITS ---
Transthoracic Echocardiogram Patient (Last, First, Middle): Leann Almanzar C Gender: Female Date of : 1940 Age: 82 Procedure Date: 09/13/2022 Procedure Type: Transthoracic Echocardiogram Location: S3E Height: 149.86 cm Weight: 71.67 kg BSA: 1.67 m2 Heart Rate: bpm BP: 123 / 59 mmHg Parts Cataloguer: TO Referring MD: Swati Rivear MD Symptoms: GPC bacteremia Study Quality: Fair/Contrast Conclusions: - Normal left ventricular cavity size. There is mildly increased left ventricular wall thickness. The left ventricular systolic function is low normal. The visually estimated ejection fraction is between 50-55%. - Elevated filling pressures. - There is moderate aortic valve stenosis. - The right ventricular systolic pressure is 68 mmHg. Significantly elevated right atrial pressure. Severe pulmonary hypertension is present. Findings Procedure Information Contrast agent, definity, is being given per protocol without apparent complications. Left Ventricle Normal left ventricular cavity size. There is mildly increased left ventricular wall thickness. The left ventricular systolic function is low normal. The visually estimated ejection fraction is between 50-55%. There is no evidence of regional wall motion abnormalities. Abnormal diastolic function is noted. Spectral Doppler is indicative of an impaired relaxation filling pattern. Elevated filling pressures. Right Ventricle Normal right ventricular cavity size and systolic function. Atria The left atrium is moderately dilated. The right atrium is normal in size. Aortic Valve There is a normal trileaflet aortic valve. There is mild calcification of the aortic valve. There is moderate aortic valve stenosis. The peak aortic velocity is 2.93 m/s. The aortic valve area is 0.97 cm2. There is no aortic valve regurgitation. Mitral Valve Normal mitral valve structure and function. There is moderate mitral annular calcification. There is trace mitral valve regurgitation. There is no mitral valve stenosis. Pulmonic Valve The pulmonic valve is likely normal. Tricuspid Valve Normal tricuspid valve structure and function. There is trace tricuspid valve regurgitation. The right ventricular systolic pressure is 68 mmHg. Significantly elevated right atrial pressure. Severe pulmonary hypertension is present. Great Vessels All visible segments of the aorta are normal in size. Venous The inferior vena cava is dilated and collapses less than 50% with inspiration. Pericardium/Pleural Prominent epicardial adipose tissue noted. There is no evidence of pericardial effusion. Measurements 2D Linear Measurements IVSd: 1.24 0.6-0.9/0.6-1.0 cm LVIDd: 4.91 3.9-5.3/4.2-5.9 cm LVIDd Index: 2.94 2.4-3.2/2.2-3.1 cm/m2 LVIDs: 3.32 2.0-3.6 cm LVPWd: 1.06 0.7-1.1 cm LA Diam: 4.40 2.7-3.8/3.0-4.0 cm LAIDs Index: 2.63 1.5-2.3 cm/m2 LV Mass: 266.69 67-162/88-224 g LV Mass Index: 159.70 43-95/49-115 g/m2 LVOT Diam: 1.90 3.0+(-)1.3 cm 2D Systolic Function EF 4C: 41.10 >55% EF 2C: 45.30 >55% EF BiP: 43.70 >55% Mitral Valve MV VTI: 0.40 MV Pk Gordon: 1.19 MV Mn Gordon: 0.78 MV Pk Grad: 6.00 MV Mn Grad: 3.00 MV Pk E: 1.08 MV PK A: 0.99 MV Decel Time: 259.00 E/A: 1.10 E'Lateral: 6.74 E'Medial: 4.79 E/E' Med: 22.50 E/E' Lat: 16.00 PHT: 76.00 MVA PHT: 2.89 MVA Continuity: 1.63 Decel Burnett: 4.19 Aortic Valve AoV Pk Gordon: 2.93 AoV Mn Gordon: 2.04 AoV VTI: 0.67 AoV Pk Grad: 34.00 Aov Mn Grad: 19.00 YVETTE Cont.VTI: 0.97 LVOT LVOT Pk Gordon: 0.97 LVOT Mn Gordon: 0.63 LVOT VTI: 0.23 LVOT Pk Grad: 4.00 LVOT Mn Grad: 2.00 LVOT Diam: 1.90 LVOT Area: 2.84 Diastolic Function MV Pk E: 1.08 MV Pk A: 0.99 E/A: 1.10 E'Medial: 4.79 E/E' Med: 22.50 E' Laterial: 6.74 E/E' Lat: 16.00 Right Ventricle TAPSE (mm): 28.90 TVS' Gordon: 15.10 Tricuspid Valve TR Pk Gordon: 3.64 TR Pk Grad: 53.00 RA Press: 15.00 RVSP: 68.00 Great Vessels Aorta Sinus of Valsalva: 2.91 2.0-3.[address] [place]: 2.11 1.7-3.4 cm Ao Asc: 3.10 2.1-3.4 cm Updated in Other Vendor System with Status of Final Maximino Hernandez MD electronically signed on 09/13/2022 3:48:18 PM with status of Final
[2022-09-13 07:43] LABS: Glucose, Whole Blood 247 mg/dL (60-115)
[2022-09-13] MEDS: Insulin Lispro 100 UNIT/ML 3 ML VIAL SUBCUT ×4 (08:32→21:28)
[2022-09-13] MEDS: 0.9 % Sodium Chloride Flush 3 ML SYRINGE IVFLUSH ×3 (08:33→20:29)
--- NOTE | 2022-09-13 09:26 | HO.PM.IMPN ---
Subjective Subjective Date of Service: 09/13/22 Interval History: This history was taken in Amharic from the patient. afebrile cough improving appetite good Review of Systems Review of Systems: Yes all other systems are reviewed and are negative Physical Exam Vital Signs: Vital Signs: Last Vital Signs Temp 96.8 F 09/13/22 07:17 Pulse 78 09/13/22 07:59 Resp 18 09/13/22 07:59 BP 136/63 09/13/22 07:17 Pulse Ox 96 09/13/22 07:17 O2 Del Method 09/13/22 07:17 O2 Flow Rate 2 09/13/22 07:17 BMI result Body Mass Index 31.4 Const: Other: Gen: in no acute distress HEENT: sclera anicteric, moist mucus membranes Neck: supple Lungs: insp crackles L side Heart: regular rate and rhythm, no murmurs Abd: soft, non-tender, non-distended Ext: no edema Skin: warm/well-perfused Neuro: alert and oriented x3, no focal findings Psych: appropriate affect Objective Data Active Medications Acetaminophen (Acetaminophen 325 Mg Tablet) 650 mg PO Q6H PRN PRN Reason: Pain, Mild (Pain Scale 1-3) Acetaminophen/Codeine Phosphate (Acetaminop/Codeine 120/12/5 Ml 5 Ml Solution) 5 ml PO Q4H PRN PRN Reason: cough Aspirin (Aspirin Enteric Coated 81 Mg Tablet.) 81 mg PO DAILY [facility] Bumetanide (Bumetanide 1 Mg Tablet) 1 mg PO Q48H [facility]; Protocol Albuterol Sulfate 2.5 mg/ (Ipratropium [place] 0.5 mg) 0 mg INHALE RQ4H WHILE AWAKE [facility] Last Admin: 09/13/22 07:55 Dose: 3 each Documented By: MEEK Albuterol Sulfate 2.5 mg/ (Ipratropium [place] 0.5 mg) 0 mg INHALE Q4H PRN PRN Reason: Wheezing Dextrose (Dextrose 50 % 25 Gm/50 Ml Syringe) 25 gm IVPUSH Q15M PRN; Protocol PRN Reason: per Hypoglycemia Standing Ord. Enoxaparin Sodium (Enoxaparin Sodium 30 Mg/0.3 Ml Syringe) 30 mg SUBCUT Q24H [facility] Last Admin: 09/13/22 00:14 Dose: 30 mg Documented By: LEONARDA Ferrous Sulfate (Ferrous Sulfate 324 Mg Tablet.) 324 mg PO BID [facility] Last Admin: 09/12/22 20:57 Dose: 324 mg Documented By: LEONARDA Folic Acid (Folic Acid 1 Mg Tablet) 1 mg PO DAILY [facility] Glucose (Glucose Gel 15 Gm Gel..Gram.) 15 gm PO Q15M PRN; Protocol PRN Reason: per Hypoglycemia Standing Ord. Ceftriaxone Sodium 1 gm/ (Sodium Chloride) 50 mls @ 100 mls/hr IV Q24H [facility] Last Infusion: 09/12/22 21:37 Dose: 0 mls/hr Documented By: LEONARDA Azithromycin 500 mg/ Sodium (Chloride) 250 mls @ 125 mls/hr IV Q24H [facility] Last Infusion: 09/13/22 00:18 Dose: 0 mls/hr Documented By: LEONARDA Vancomycin HCl 750 mg/ Sodium (Chloride) 265 mls @ 265 mls/hr IV Q24H [facility] Insulin Human Lispro (Insulin Lispro 100 Unit/Ml 3 Ml Vial) 0.1 - 10 unit SUBCUT QIDACHS [facility]; Protocol Last Admin: 09/13/22 08:32 Dose: 4 unit Documented By: RICH Magnesium Oxide (Magnesium Oxide 400 Mg Tablet) 400 mg PO BEDTIME [facility] Last Admin: 09/12/22 20:57 Dose: 400 mg Documented By: LEONARDA Melatonin (Melatonin 3 Mg Tablet) 6 mg PO BEDTIME PRN PRN Reason: Insomnia Methylprednisolone Sodium Succinate (Methylprednisolone Sod Succ 40 Mg/Ml Vial) 40 mg IVPUSH Q12H [facility] Last Admin: 09/13/22 00:14 Dose: 40 mg Documented By: LEONARDA Omeprazole (Omeprazole 20 Mg Capsule.) 20 mg PO DAILY@0630 [facility] Last Admin: 09/13/22 05:22 Dose: 20 mg Documented By: LEONARDA Ondansetron HCl (Ondansetron Hcl 4 Mg/2 Ml Vial) 4 mg IVPUSH Q8H PRN PRN Reason: Nausea and Vomiting Pharmacy Consult (Consult Rx Perform Med Rec) 1 each MISCELLANE ONCE PRN PRN Reason: Consult order Pharmacy Consult (Consult Rx Vancomycin Dosing) 1 each MISCELLANE DAILY [facility] Sodium Chloride (0.9 % Sodium Chloride Flush 3 Ml Syringe) 3 ml IVFLUSH QSHIFT [facility] Last Admin: 09/13/22 08:33 Dose: 3 ml Documented By: RICH Verapamil HCl (Verapamil Hcl Sr 100 Mg Cap24h.Pct) 300 mg PO BEDTIME [facility]; Protocol Last Admin: 09/12/22 20:56 Dose: 300 mg Documented By: LEONARDA Labs 09/13/22 05:24 09/13/22 05:24 Labs: Laboratory Results - last 24 hr 09/12/22 09/12/22 09/12/22 11:56 17:40 20:07 MCV MCH MCHC RDW Plt Count MPV Absolute Nucleated RBC Nucleated RBC % (auto) Anion Gap Estim Creat Clear Calc Estimated GFR POC Glucose 316 H 186 H 254 H Random Glucose Calcium 09/13/22 09/13/22 09/13/22 05:24 05:24 07:16 MCV 91.4 MCH 29.4 MCHC 32.2 RDW 13.2 Plt Count 247 MPV 11.4 Absolute Nucleated RBC 0.000 Nucleated RBC % (auto) 0.0 Anion Gap 14 Estim Creat Clear Calc 33.3 Estimated GFR 46 POC Glucose 247 H Random Glucose 279 H Calcium 8.8 Microbiology Microbiology Results: Microbiology 09/12/22 22:15 Gram Stain - Final Sputum - Expectorated Sputum Culture - Preliminary No growth to date. 09/11/22 22:23 Blood Culture - Preliminary Blood - Venous Prelim: GPC Gram Stain only 09/11/22 22:23 Blood Culture - Preliminary Blood - Venous Prelim: GPC Gram Stain only Assessment and Plan (1) Bilateral pneumonia: Status: Acute Plan hospital d#3 82yo F with COPD, DM2, HTN, GERD presenting with several days of dyspnea, septic from PNA + bacteremia # GPC bacteremia - vancomycin 09/12-, TTE, follow speciation + susceptibilities from 09/11, surveillance BCx from 09/13 # PNA - ceftriaxone + azithromycin 09/11-, vancomycin as above, trend PCT, follow BCx as above # sev sepsis due to PNA - lactate normalized # acute hypoxic rep failure - wean O2 as tolerated # presyncope - due to above, resolved # KLAUS/CKD3 - SCr now at baseline # elevated Tn-I - likely demand ischemia due to sepsis # HTN - continue verapamil # DM2 - correction-dose lispro # GERD - PPI # VTE ppx: LMWH # dispo: anticipate home after bacteremia cleared + definitive treatment plan in place In my clinical judgment, the patient requires continued inpatient hospitalization for the following reasons: IV ABX + bacteremia Time Spent With Patient Time: Total time managing care of this patient today __35__ minutes. Quality Stroke Does the patient have a stroke diagnosis?: No VTE Prior VTE?: No VTE Risk Level:: Medical - moderate - high VTE Device Contraindication: Treatment Not Indicated VTE Drug Contraindication: N/A - Med Ordered
[2022-09-13] MEDS: Aspirin Enteric Coated 81 MG TABLET.DR PO (09:32)
[2022-09-13] MEDS: Ferrous Sulfate 324 MG TABLET.DR PO ×2 (09:33→20:25)
[2022-09-13] MEDS: Folic Acid 1 MG TABLET PO (09:33)
--- NOTE | 2022-09-13 11:20 | PC.RT ---
patients stated she gets very shaky after the treatment and would like less of them. I will contact MD to see if we can change it to TID
[2022-09-13 11:40] LABS: Glucose, Whole Blood 368 mg/dL (60-115)
[2022-09-13] MEDS: Bumetanide 1 MG TABLET PO (12:58)
[2022-09-13] MEDS: vancomycin HCL 750 MG in 0.9 % Sodium Chloride 250 ML 265 MG IV (14:54)
[2022-09-13 16:45] LABS: Glucose, Whole Blood 308 mg/dL (60-115)
[2022-09-13] MEDS: Magnesium Oxide 400 MG TABLET PO (20:25)
[2022-09-13] MEDS: cefTRIAXone sodium 1 GM in 0.9 % Sodium Chloride 50 ML IV (20:25)
[2022-09-13] MEDS: Azithromycin 500 MG in 0.9 % Sodium Chloride 250 ML 125 MG IV (20:26)
[2022-09-13 21:15] LABS: Glucose, Whole Blood 289 mg/dL (60-115)
[2022-09-14] VITALS (8 sets, daily range): BP systolic 115–169; BP diastolic 65–78; PULSE 56–87; RESP 16–18; TEMP 36.4–37; O2SAT 88–100
[2022-09-14] MEDS: Acetaminop/Codeine 120/12/5 mL 5 ML SOLUTION PO ×2 (02:02→05:46)
[2022-09-14] MEDS: Omeprazole 20 MG CAPSULE.DR PO (05:46)
[2022-09-14 06:11] LABS: Hematocrit 31.2 % (37.0-47.0); Hemoglobin 10.2 g/dl (12.0-16.0); Mean Corpuscular HGB Conc 32.7 g/dl (31.0-35.0); Mean Corpuscular Hemoglobin 29.6 pg (27.0-33.0); Mean Corpuscular Volume 90.4 fL (80.0-98.0); Mean Platelet Volume 11.7 fL (9.4-12.3); Platelet Count 259 X10*3/uL (160-400); Red Blood Count 3.45 X10*6/uL (4.20-5.50)
[2022-09-14 07:30] LABS: Glucose, Whole Blood 258 mg/dL (60-115)
[2022-09-14 07:42] LABS: Anion Gap 17 (12-20); Blood Urea Nitrogen 32 mg/dL (9-16); Calcium 8.9 mg/dL (8.4-10.2); Carbon Dioxide 23 mmol/L (22-29); Chloride 106 mmol/L (96-108); Creatinine Clr Calc Pharmacy 31.9; Estimated Glomerular Filt Rate 44; Glucose Random 255 mg/dL (60-115); Sodium 142 mmol/L (135-145)
[2022-09-14 08:02] LABS: Procalcitonin 4.47 ng/mL
[2022-09-14] MEDS: 0.9 % Sodium Chloride Flush 3 ML SYRINGE IVFLUSH ×3 (08:20→20:12)
[2022-09-14] MEDS: Insulin Lispro 100 UNIT/ML 3 ML VIAL SUBCUT ×4 (08:20→20:41)
[2022-09-14] MEDS: Aspirin Enteric Coated 81 MG TABLET.DR PO (08:21)
[2022-09-14] MEDS: Folic Acid 1 MG TABLET PO (08:21)
[2022-09-14] MEDS: Ferrous Sulfate 324 MG TABLET.DR PO ×2 (08:21→20:12)
--- NOTE | 2022-09-14 08:54 | HO.PM.IMPN ---
Subjective Subjective Date of Service: 09/14/22 Interval History: This history was taken in [place] from the patient. Afebrile O2 weaned to 1L Coughing Review of Systems Review of Systems: Yes all other systems are reviewed and are negative Physical Exam Vital Signs: Vital Signs: Last Vital Signs Temp 97.7 F 09/14/22 07:57 Pulse 87 09/14/22 08:04 Resp 16 09/14/22 08:04 BP 150/70 H 09/14/22 07:57 Pulse Ox 96 09/14/22 07:57 O2 Del Method 09/14/22 07:57 O2 Flow Rate 2 09/14/22 07:57 BMI result Body Mass Index 31.4 Const: Other: Gen: in no acute distress HEENT: sclera anicteric, moist mucus membranes Neck: supple Lungs: insp crackles L side Heart: regular rate and rhythm, no murmurs Abd: soft, non-tender, non-distended Ext: no edema Skin: warm/well-perfused Neuro: alert and oriented x3, no focal findings Psych: appropriate affect Objective Data Active Medications Acetaminophen (Acetaminophen 325 Mg Tablet) 650 mg PO Q6H PRN PRN Reason: Pain, Mild (Pain Scale 1-3) Acetaminophen/Codeine Phosphate (Acetaminop/Codeine 120/12/5 Ml 5 Ml Solution) 5 ml PO Q4H PRN PRN Reason: cough Last Admin: 09/14/22 05:46 Dose: 5 ml Documented By: GISSELLE Aspirin (Aspirin Enteric Coated 81 Mg Tablet.) 81 mg PO DAILY [facility] Last Admin: 09/14/22 08:21 Dose: 81 mg Documented By: VERITO Bumetanide (Bumetanide 1 Mg Tablet) 1 mg PO Q48H [facility]; Protocol Last Admin: 09/13/22 12:58 Dose: 1 mg Documented By: RICH Albuterol Sulfate 2.5 mg/ (Ipratropium [place] 0.5 mg) 0 mg INHALE RQ4H WHILE AWAKE [facility] Last Admin: 09/14/22 08:02 Dose: 2.5 each Documented By: YO Albuterol Sulfate 2.5 mg/ (Ipratropium [place] 0.5 mg) 0 mg INHALE Q4H PRN PRN Reason: Wheezing Dextrose (Dextrose 50 % 25 Gm/50 Ml Syringe) 25 gm IVPUSH Q15M PRN; Protocol PRN Reason: per Hypoglycemia Standing Ord. Enoxaparin Sodium (Enoxaparin Sodium 30 Mg/0.3 Ml Syringe) 30 mg SUBCUT Q24H [facility] Last Admin: 09/13/22 22:55 Dose: 30 mg Documented By: GISSELLE Ferrous Sulfate (Ferrous Sulfate 324 Mg Tablet.) 324 mg PO BID [facility] Last Admin: 09/14/22 08:21 Dose: 324 mg Documented By: VERITO Folic Acid (Folic Acid 1 Mg Tablet) 1 mg PO DAILY [facility] Last Admin: 09/14/22 08:21 Dose: 1 mg Documented By: VERITO Glucose (Glucose Gel 15 Gm Gel..Gram.) 15 gm PO Q15M PRN; Protocol PRN Reason: per Hypoglycemia Standing Ord. Ceftriaxone Sodium 1 gm/ (Sodium Chloride) 50 mls @ 100 mls/hr IV Q24H [facility] Last Infusion: 09/13/22 20:56 Dose: 0 mls/hr Documented By: GISSELLE Azithromycin 500 mg/ Sodium (Chloride) 250 mls @ 125 mls/hr IV Q24H [facility] Last Infusion: 09/13/22 22:52 Dose: 0 mls/hr Documented By: GISSELLE Vancomycin HCl 750 mg/ Sodium (Chloride) 265 mls @ 265 mls/hr IV Q24H [facility] Last Infusion: 09/13/22 16:01 Dose: 0 mls/hr Documented By: RICH Insulin Human Lispro (Insulin Lispro 100 Unit/Ml 3 Ml Vial) 0.1 - 12 unit SUBCUT QIDACHS [facility]; Protocol Last Admin: 09/14/22 08:20 Dose: 8 unit Documented By: VERITO Magnesium Oxide (Magnesium Oxide 400 Mg Tablet) 400 mg PO BEDTIME [facility] Last Admin: 09/13/22 20:25 Dose: 400 mg Documented By: GISSELLE Melatonin (Melatonin 3 Mg Tablet) 6 mg PO BEDTIME PRN PRN Reason: Insomnia Methylprednisolone Sodium Succinate (Methylprednisolone Sod Succ 40 Mg/Ml Vial) 40 mg IVPUSH Q12H [facility] Last Admin: 09/13/22 22:55 Dose: 40 mg Documented By: GISSELLE Omeprazole (Omeprazole 20 Mg Capsule.) 20 mg PO DAILY@0630 [facility] Last Admin: 09/14/22 05:46 Dose: 20 mg Documented By: GISSELLE Ondansetron HCl (Ondansetron Hcl 4 Mg/2 Ml Vial) 4 mg IVPUSH Q8H PRN PRN Reason: Nausea and Vomiting Pharmacy Consult (Consult Rx Perform Med Rec) 1 each MISCELLANE ONCE PRN PRN Reason: Consult order Pharmacy Consult (Consult Rx Vancomycin Dosing) 1 each MISCELLANE DAILY [facility] Sodium Chloride (0.9 % Sodium Chloride Flush 3 Ml Syringe) 3 ml IVFLUSH QSHIFT [facility] Last Admin: 09/14/22 08:20 Dose: 3 ml Documented By: VERITO Verapamil HCl (Verapamil Hcl Sr 100 Mg Cap24h.Pct) 300 mg PO BEDTIME [facility]; Protocol Last Admin: 09/13/22 20:25 Dose: 300 mg Documented By: GISSELLE Labs 09/14/22 05:10 09/14/22 05:10 Labs: Laboratory Results - last 24 hr 09/13/22 09/13/22 09/13/22 11:29 16:37 21:10 MCV MCH MCHC RDW Plt Count MPV Absolute Nucleated RBC Nucleated RBC % (auto) Anion Gap Estim Creat Clear Calc Estimated GFR POC Glucose 368 H* 308 H 289 H Random Glucose Calcium Procalcitonin 09/14/22 09/14/22 09/14/22 05:10 05:10 07:18 MCV 90.4 MCH 29.6 MCHC 32.7 RDW 13.0 Plt Count 259 MPV 11.7 Absolute Nucleated RBC 0.000 Nucleated RBC % (auto) 0.0 Anion Gap 17 Estim Creat Clear Calc 31.9 Estimated GFR 44 POC Glucose 258 H Random Glucose 255 H Calcium 8.9 Procalcitonin 4.47 Microbiology 09/12/22 22:15 Sputum - Expectorated Gram Stain - Final 09/12/22 22:15 Sputum - Expectorated Sputum Culture - Preliminary Culture in progress. 09/13/22 05:24 Blood - Venous Blood Culture - Preliminary No growth after 24 hours. 09/13/22 05:24 Blood - Venous Blood Culture - Preliminary No growth after 24 hours. 09/11/22 22:23 Blood - Venous Blood Culture - Preliminary Streptococcus species 09/11/22 22:23 Blood - Venous Blood Culture - Preliminary Streptococcus species TTE 09/13/22 - Normal left ventricular cavity size.? There is mildly increased left ventricular wall thickness.? The left ventricular systolic? function is low normal.? The visually estimated ejection fraction is between 50-55%. ? - Elevated filling pressures.? - There is moderate aortic valve stenosis. ? - The right ventricular systolic pressure is 68 mmHg.? Significantly elevated right atrial pressure.? Severe pulmonary? hypertension is present. ? ? ? Microbiology Microbiology Results: Microbiology 09/12/22 22:15 Gram Stain - Final Sputum - Expectorated Sputum Culture - Preliminary Culture in progress. 09/13/22 05:24 Blood Culture - Preliminary Blood - Venous No growth after 24 hours. 09/13/22 05:24 Blood Culture - Preliminary Blood - Venous No growth after 24 hours. 09/11/22 22:23 Blood Culture - Preliminary Blood - Venous Streptococcus species 09/11/22 22:23 Blood Culture - Preliminary Blood - Venous Streptococcus species Assessment and Plan (1) Bilateral pneumonia: Status: Acute Plan hospital d#4 82yo F with COPD, DM2, HTN, GERD presenting with several days of dyspnea, septic from PNA + bacteremia # streptococcal bacteremia - vancomycin 09/12-, no veg on TTE, follow speciation + susceptibilities from 09/11, surveillance BCx from 09/13 # PNA - ceftriaxone + azithromycin 09/11-, vancomycin as above, PCT decreasing follow BCx as above # sev sepsis due to PNA - lactate normalized # acute hypoxic rep failure - wean O2 as tolerated; currently on 1L via NC # presyncope - due to above, resolved # KLAUS/CKD3 - SCr now at baseline # elevated Tn-I - likely demand ischemia due to sepsis # HTN - continue verapamil # DM2 - correction-dose lispro # GERD - PPI # VTE ppx: LMWH # dispo: anticipate home after bacteremia cleared + definitive treatment plan in place In my clinical judgment, the patient requires continued inpatient hospitalization for the following reasons: IV ABX + bacteremia Time Spent With Patient Time: Total time managing care of this patient today _35___ minutes. Quality Stroke Does the patient have a stroke diagnosis?: No VTE Prior VTE?: No VTE Risk Level:: Medical - moderate - high VTE Device Contraindication: Treatment Not Indicated VTE Drug Contraindication: N/A - Med Ordered
[2022-09-14 11:24] LABS: Glucose, Whole Blood 400 mg/dL (60-115)
[2022-09-14] MEDS: cefTRIAXone sodium 2 GM in 0.9 % Sodium Chloride 50 ML IV (12:01)
[2022-09-14] MEDS: methylPREDNISolone Sod Succ 40 MG/ML VIAL IVPUSH (12:01)
--- NOTE | 2022-09-14 15:34 | W.PM.IDCN ---
History of Present Illness Data of Consult Service Date: 09/14/22 Requesting physician: Swati Rivera Primary Care Provider: Teofilo Moreno III, MD HPI Reason for consult: strep pneumonia bacteremia She presents with chills at home and dizziness for a day She has two blood cultures strep pneumonia on 09/11 She has had cough and ear discomfort. Review of Systems Review of Systems: Yes all other systems are reviewed and are negative FORMERLY [facility], [facility] Past Medical History Medical History (Updated 09/14/22 @ 15:40 by Jinny Paredes MD) Arthritis Bacteremia due to Streptococcus pneumoniae COPD (chronic obstructive pulmonary disease) Restrictive lung disease Family History Family History Mother Diabetes Maternal Grandmother Diabetes Surgical History Surgical History Hx of cholecystectomy Social History Social History Household Members: Family Housing: House Are you a primary care tech to a significant other at home: No Do you presently have visiting nurse or other home services: Yes (portable machine sander comes to clean house) Alcohol intake: former Patient Tobacco Use Status: Never used Tobacco Cigarette Packs Per Day: 1 service: No Current occupational status: unemployed Meds Allergies Allergy/AdvReac Type Severity Reaction Status Date / Time latex [LATEX] Allergy Unknown RASH Verified 09/11/22 20:58 pineapple [PINEAPPLE] Allergy Unknown HIVES Verified 09/11/22 20:58 enalaprilat [From Vasotec] AdvReac Mild Unknown Verified 09/11/22 20:58 Active Medications: Current Medications Acetaminophen (Acetaminophen 325 Mg Tablet) 650 mg PO Q6H PRN PRN Reason: Pain, Mild (Pain Scale 1-3) Acetaminophen/Codeine Phosphate (Acetaminop/Codeine 120/12/5 Ml 5 Ml Solution) 5 ml PO Q4H PRN PRN Reason: cough Last Admin: 09/14/22 05:46 Dose: 5 ml Aspirin (Aspirin Enteric Coated 81 Mg Tablet.) 81 mg PO DAILY [facility] Last Admin: 09/14/22 08:21 Dose: 81 mg Bumetanide (Bumetanide 1 Mg Tablet) 1 mg PO Q48H [facility]; Protocol Last Admin: 09/13/22 12:58 Dose: 1 mg Albuterol Sulfate 2.5 mg/ (Ipratropium [place] 0.5 mg) 0 mg INHALE RQ4H WHILE AWAKE [facility] Last Admin: 09/14/22 15:15 Dose: 2.5 each Albuterol Sulfate 2.5 mg/ (Ipratropium [place] 0.5 mg) 0 mg INHALE Q4H PRN PRN Reason: Wheezing Dextrose (Dextrose 50 % 25 Gm/50 Ml Syringe) 25 gm IVPUSH Q15M PRN; Protocol PRN Reason: per Hypoglycemia Standing Ord. Enoxaparin Sodium (Enoxaparin Sodium 30 Mg/0.3 Ml Syringe) 30 mg SUBCUT Q24H [facility] Last Admin: 09/13/22 22:55 Dose: 30 mg Ferrous Sulfate (Ferrous Sulfate 324 Mg Tablet.) 324 mg PO BID [facility] Last Admin: 09/14/22 08:21 Dose: 324 mg Folic Acid (Folic Acid 1 Mg Tablet) 1 mg PO DAILY [facility] Last Admin: 09/14/22 08:21 Dose: 1 mg Glucose (Glucose Gel 15 Gm Gel..Gram.) 15 gm PO Q15M PRN; Protocol PRN Reason: per Hypoglycemia Standing Ord. Azithromycin 500 mg/ Sodium (Chloride) 250 mls @ 125 mls/hr IV Q24H [facility] Last Infusion: 09/13/22 22:52 Dose: Infused Ceftriaxone Sodium 2 gm/ (Sodium Chloride) 50 mls @ 100 mls/hr IV Q24H [facility] Last Infusion: 09/14/22 12:33 Dose: Infused Insulin Human Lispro (Insulin Lispro 100 Unit/Ml 3 Ml Vial) 0.1 - 12 unit SUBCUT QIDACHS [facility]; Protocol Last Admin: 09/14/22 12:04 Dose: 12 unit Magnesium Oxide (Magnesium Oxide 400 Mg Tablet) 400 mg PO BEDTIME [facility] Last Admin: 09/13/22 20:25 Dose: 400 mg Melatonin (Melatonin 3 Mg Tablet) 6 mg PO BEDTIME PRN PRN Reason: Insomnia Methylprednisolone Sodium Succinate (Methylprednisolone Sod Succ 40 Mg/Ml Vial) 40 mg IVPUSH Q12H [facility] Last Admin: 09/14/22 12:01 Dose: 40 mg Omeprazole (Omeprazole 20 Mg Capsule.) 20 mg PO DAILY@0630 [facility] Last Admin: 09/14/22 05:46 Dose: 20 mg Ondansetron HCl (Ondansetron Hcl 4 Mg/2 Ml Vial) 4 mg IVPUSH Q8H PRN PRN Reason: Nausea and Vomiting Pharmacy Consult (Consult Rx Perform Med Rec) 1 each MISCELLANE ONCE PRN PRN Reason: Consult order Sodium Chloride (0.9 % Sodium Chloride Flush 3 Ml Syringe) 3 ml IVFLUSH QSHIFT [facility] Last Admin: 09/14/22 08:20 Dose: 3 ml Verapamil HCl (Verapamil Hcl Sr 100 Mg Cap24h.Pct) 300 mg PO BEDTIME [facility]; Protocol Last Admin: 09/13/22 20:25 Dose: 300 mg Home Medications Medication Instructions Recorded Confirmed Last Taken Type aspirin 81 mg tablet,delayed 81 mg PO DAILY 06/15/20 09/12/22 09/11/22 History release blood sugar diagnostic #10 ea 06/15/20 08/17/22 Unknown History folic acid 1 mg tablet 1 mg PO DAILY 06/15/20 09/12/22 09/11/22 History glipizide 10 mg tablet 10 mg PO BIDWM 06/15/20 09/12/22 09/11/22 History inhalat.spacing dev,large mask #1 ea 06/15/20 08/17/22 Unknown History lancets 30 gauge #100 ea 06/15/20 08/17/22 Unknown History magnesium oxide 400 mg (241.3 mg 400 mg PO BEDTIME 06/15/20 09/12/22 09/11/22 History magnesium) tablet metformin 1,000 mg tablet 1,000 mg PO BIDWM 06/15/20 09/12/22 09/11/22 History omeprazole 20 mg capsule,delayed 20 mg PO DAILY@0630 06/15/20 09/12/22 09/11/22 History release prednisone 5 mg tablet 5 mg PO DAILY 06/15/20 09/12/22 09/11/22 History verapamil 300 mg capsule 24hr 300 mg PO BEDTIME 06/15/20 09/12/22 09/11/[address],ext[address]release albuterol sulfate 2.5 mg/3 mL 2.5 mg inhalation Q4H PRN Wheezing 09/12/22 09/12/22 Unknown History (0.083 %) solution for nebulization albuterol sulfate 90 mcg/actuation 2 inh inhalation Q6H PRN Wheezing 09/12/22 09/12/22 Unknown History aerosol inhaler bumetanide 1 mg tablet 1 mg PO Q48H 09/12/22 09/12/22 09/11/22 History Physical Exam Vital Signs: Vital Signs: Last Vital Signs Temp 97.5 F 09/14/22 15:22 Pulse 73 09/14/22 15:22 Resp 18 09/14/22 15:22 BP 169/73 H 09/14/22 15:22 Pulse Ox 96 09/14/22 15:22 O2 Del Method 09/14/22 15:22 O2 Flow Rate 2 09/14/22 07:57 BMI result Body Mass Index 31.4 Const: General: cooperative HEENT: Head: Yes normal to inspection Face and sinus: Yes normal facial exam Mouth: Normal oral and palatal mucosa present Teeth and gingiva: dentition normal Eyes: General: appearance normal, both eyes and all related structures Pupils: Equal, round and reactive pupils present Resp: Effort & Inspection: normal respiratory effort Cardio: Rate: regular rate Rhythm: regular rhythm GI: Palpation (GI): Soft to palpation and nontender : General: Yes no CVA tenderness Back/Spine/Pelvis: Back: no CVA tenderness Skin: General skin exam: no rashes or lesions noted Neuro: General: moves all extremities Cranial nerves: Yes Equal, round and reactive pupils present Extrem: General: Yes normal to inspection Psych: Appearance: grossly normal Results Labs 09/14/22 05:10 09/14/22 05:10 Labs: Short CBC 09/14/22 Range/Units 05:10 WBC 19.0 H (4.8-10.8) X10*3/uL Hgb 10.2 L (12.0-16.0) g/dl Hct 31.2 L (37.0-47.0) % Plt Count 259 (160-400) X10*3/uL BMP 09/14/22 05:10 Sodium 142 Potassium 4.0 Chloride 106 Carbon Dioxide 23 BUN 32 H Creatinine 1.18 Calcium 8.9 Microbiology Microbiology Results: Microbiology 09/11/22 22:23 Blood - Venous Blood Culture - Final Streptococcus pneumoniae 09/11/22 22:23 Blood - Venous Blood Culture - Final Streptococcus pneumoniae 09/12/22 22:15 Sputum - Expectorated Gram Stain - Final 02/15/23 22:15 Sputum - Expectorated Sputum Culture - Preliminary Culture in progress. 09/13/22 05:24 Blood - Venous Blood Culture - Preliminary No growth after 24 hours. 09/13/22 05:24 Blood - Venous Blood Culture - Preliminary No growth after 24 hours. 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 Make sure up to date on vaccinations for strep pneumonia. Time Spent With Patient Time: Total time managing care of this patient today ____ minutes.
[2022-09-14 16:53] LABS: Glucose, Whole Blood 321 mg/dL (60-115)
[2022-09-14] MEDS: Magnesium Oxide 400 MG TABLET PO (20:12)
[2022-09-14 20:30] LABS: Glucose, Whole Blood 222 mg/dL (60-115)
[2022-09-14] MEDS: Azithromycin 500 MG in 0.9 % Sodium Chloride 250 ML 125 MG IV (22:11)
[2022-09-15] MEDS: methylPREDNISolone Sod Succ 40 MG/ML VIAL IVPUSH ×2 (00:32→12:06)
[2022-09-15] MEDS: Enoxaparin Sodium 30 MG/0.3 ML SYRINGE SUBCUT (00:33)
[2022-09-15 04:00] VITALS: BP 146/73; PULSE 74; RESP 18; TEMP 36.1; O2SAT 98
[2022-09-15] MEDS: Omeprazole 20 MG CAPSULE.DR PO (05:47)
[2022-09-15 06:51] LABS: Creatinine Clr Calc Pharmacy 35.5; Estimated Glomerular Filt Rate 50
[2022-09-15 07:48] VITALS: BP 170/79; PULSE 59; RESP 18; TEMP 36.5; O2SAT 91
[2022-09-15 08:05] LABS: Glucose, Whole Blood 248 mg/dL (60-115)
[2022-09-15] MEDS: Aspirin Enteric Coated 81 MG TABLET.DR PO (08:25)
[2022-09-15] MEDS: Ferrous Sulfate 324 MG TABLET.DR PO (08:25)
[2022-09-15] MEDS: Folic Acid 1 MG TABLET PO (08:25)
[2022-09-15] MEDS: Insulin Lispro 100 UNIT/ML 3 ML VIAL SUBCUT ×2 (08:26→12:05)
[2022-09-15] MEDS: 0.9 % Sodium Chloride Flush 3 ML SYRINGE IVFLUSH (08:26)
[2022-09-15 09:10] VITALS: PULSE 82; RESP 17; O2SAT 95
--- NOTE | 2022-09-15 10:11 | P.F2F_ITS ---
Service Date Service Date: 09/15/22 Encounter Date of encounter: 09/15/22 Reasons for Services Signs and symptoms assessed: balance, conditioning Reason for senior living: medication management, medication treatment and teach disease management Reason for physical therapy: home safety and mobility, therapeutic exercises, gait/transfer training, assess need for DME, ADL training and energy conservation Overseeing Care: Teofilo Moreno III Homebound: Leaving the home is medically contraindicated at this time without the asist of a device and/or another person due th the listed conditions above and below. Reason homebound: immunosuppression / infection risk and weakness related to hospital stay Certification: Based on the above findings, I certify that this patient is confined to the home and needs intermittent senior living care, physical therapy and/or speech therapy, or continues to need occupational therapy. The patient is under my care, and I have initiated the establishment of the plan of care. The patient will be followed by a physician who will periodically review the plan of care. Time Spent With Patient Time: Total time managing care of this patient today ____ minutes.
[2022-09-15 10:13] VITALS: PULSE 82
--- NOTE | 2022-09-15 10:19 | PM.DS ---
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 Patient states she has been having productive cough for the last few days.? It is associated with fever, chills and wheezing.? Prior to arrival, patient states she had an episode of dizziness.? No chest discomfort, palpitations, nausea, vomiting, abdominal pain, changes in urinary or bowel habits. In the emergency department, patient was found to be septic and imaging consistent with left-sided pneumonia. This 82yo F with COPD, DM2, HTN, GERD presenting with several days of dyspnea was admitted to the medical-surgical floor due to hypoxia and septis from pneumonia. She was treated with ceftriaxone and azithromycin. Blood cultures from 09/11 returned positive for penicillin-susceptibile Streptococcus pneumonia and blood cultures from 09/13 cleared. Infectious disease was consulted and she was discharged on 11 days of cefuroxime for total 14 days of treatment of invasive pneumococcal disease. She was weaned off oxygen. She was treated with steroid taper for COPD exacerbation. Time Spent with Patient Time attestation: Total time managing care of this patient today __45__ minutes. Discharge coordination time: Greater than 30 minutes Quality: Safe Use of Opioids Does Pt have an Active Cancer Diagnosis on the Problem List?: No Quality: Stroke Does the patient have a stroke diagnosis?: No Physical Exam Vital Signs: Vital Signs: Last Vital Signs Temp 97.7 F 09/15/22 07:48 Pulse 82 09/15/22 09:10 Resp 17 09/15/22 09:10 BP 170/79 H 09/15/22 07:48 Pulse Ox 91 L 09/15/22 07:48 O2 Del Method 09/15/22 07:48 O2 Flow Rate 2 09/14/22 07:57 BMI result Body Mass Index 31.4 Const: Other: Gen: in no acute distress HEENT: sclera anicteric, moist mucus membranes Neck: supple Lungs: clear to auscultation bilaterally Heart: regular rate and rhythm, no murmurs Abd: soft, non-tender, non-distended Ext: no edema Skin: warm/well-perfused Neuro: alert and oriented x3, no focal findings Psych: appropriate affect DS: Data Data Completed and Pending Completed studies during hospitalization [Text1]: Laboratory Results WBC 19.0 X10*3/uL (4.8-10.8) H 09/14/22 05:10 RBC 3.45 X10*6/uL (4.20-5.50) L 09/14/22 05:10 Hgb 10.2 g/dl (12.0-16.0) L 09/14/22 05:10 Hct 31.2 % (37.0-47.0) L 09/14/22 05:10 MCV 90.4 fL (80.0-98.0) 09/14/22 05:10 MCH 29.6 pg (27.0-33.0) 09/14/22 05:10 MCHC 32.7 g/dl (31.0-35.0) 09/14/22 05:10 RDW 13.0 % (11.0-16.0) 09/14/22 05:10 Plt Count 259 X10*3/uL (160-400) 09/14/22 05:10 MPV 11.7 fL (9.4-12.3) 09/14/22 05:10 Immature Gran % (Auto) Cancelled 09/12/22 04:52 Neut % (Auto) Cancelled 09/12/22 04:52 Lymph % (Auto) Cancelled 09/12/22 04:52 [place] % (Auto) Cancelled 09/12/22 04:52 Eos % (Auto) Cancelled 09/12/22 04:52 Baso % (Auto) Cancelled 09/12/22 04:52 Lymph # (Auto) Cancelled 09/12/22 04:52 [place] # (Auto) Cancelled 09/12/22 04:52 Eos # (Auto) Cancelled 09/12/22 04:52 Baso # (Auto) Cancelled 09/12/22 04:52 Abs Immat Gran (auto) Cancelled 09/12/22 04:52 Absolute Neuts (auto) Cancelled 09/12/22 04:52 Absolute Nucleated RBC 0.000 X10*3/uL (0.0-0.012) 09/14/22 05:10 Nucleated RBC % (auto) 0.0 /100WBC (0.0-0.2) 09/14/22 05:10 Neutrophils % (Manual) 80 % (45-73) H 09/12/22 04:52 Band Neutrophils % 15 % (3-5) H 09/12/22 04:52 Lymphocytes % (Manual) 1 % (20-40) L 09/12/22 04:52 Monocytes % (Manual) 3 % (2-11) 09/12/22 04:52 Basophils % (Manual) 1 % (0-2) 09/12/22 04:52 Metamyelocytes % 3 % 09/11/22 21:35 Abs Neuts (Manual) 29.4 X10*3/uL (2.0-8.3) H 09/12/22 04:52 Lymphocytes # (Manual) 0.3 X10*3/uL (1.2-4.9) L 09/12/22 04:52 Monocytes # (Manual) 0.9 X10*3/uL (0.1-1.2) 09/12/22 04:52 Basophils # (Manual) 0.3 X10*3/uL (0.0-0.2) H 09/12/22 04:52 Metamyelocytes # 0.9 X10*3/uL 09/11/22 21:35 Smudge Cells PRESENT 09/12/22 04:52 Platelet Estimate NORMAL (NORMAL) 09/12/22 04:52 Plt Morphology Comment NORMAL 09/12/22 04:52 RBC Morphology NORMAL 09/12/22 04:52 Macrocytosis 1+ (5-14) /OIF 09/12/22 04:52 Sodium 142 mmol/L (135-145) 09/14/22 05:10 Potassium 4.0 mmol/L (3.3-5.1) 09/14/22 05:10 Chloride 106 mmol/L (96-108) 09/14/22 05:10 Carbon Dioxide 23 mmol/L (22-29) 09/14/22 05:10 Anion Gap 17 (12-20) 09/14/22 05:10 BUN 32 mg/dL (9-16) H 09/14/22 05:10 Creatinine 1.06 mg/dL (0.5-1.4) 09/15/22 05:09 Estim Creat Clear Calc 35.5 09/15/22 05:09 Estimated GFR 50 09/15/22 05:09 POC Glucose 248 mg/dL (60-115) H 09/15/22 07:47 Random Glucose 255 mg/dL (60-115) H 09/14/22 05:10 Lactic Acid 4.1 mmol/L (0.5-2.0) H* 09/11/22 22:23 Lactic Acid F/U @ 2Hr 3.4 mmol/L (0.5-2.0) H* 09/12/22 01:58 Lactic Acid F/U @ 4Hr 1.8 mmol/L (0.5-2.0) 09/12/22 04:52 Calcium 8.9 mg/dL (8.4-10.2) 09/14/22 05:10 Total Bilirubin 1.7 mg/dL (0.0-1.0) H 09/11/22 21:35 AST 12 U/L (5-31) 09/11/22 21:35 ALT 10 U/L (0-31) 09/11/22 21:35 Alkaline Phosphatase 64 U/L (39-117) 09/11/22 21:35 Troponin I High Sens 15.9 ng/L (<3.5-17.0) 09/12/22 08:26 B-Natriuretic Peptide 701 pg/mL (<100) H 09/11/22 22:23 Total Protein 6.2 g/dL (6.5-8.0) L 09/11/22 21:35 Albumin 3.7 g/dL (3.5-5.0) 09/11/22 21:35 Procalcitonin 4.47 ng/mL 09/14/22 05:10 Influenza Type A (PCR) NEGATIVE (Negative) 09/11/22 21:35 Influenza Type B (PCR) NEGATIVE (Negative) 09/11/22 21:35 RSV RNA Qual (PCR) NEGATIVE (Negative) 09/11/22 21:35 SARS-CoV-2 RNA (RT-PCR) NEGATIVE (Negative) 09/11/22 21:35 Impressions Chest X-Ray 09/11/22 22:25 IMPRESSION: Peripheral airspace opacity in the left midlung. This is consistent with pneumonia. Microbiology 09/12/22 22:15 Sputum - Expectorated Gram Stain - Final 09/12/22 22:15 Sputum - Expectorated Sputum Culture - Final 09/13/22 05:24 Blood - Venous Blood Culture - Preliminary No growth after 48 hours. 09/13/22 05:24 Blood - Venous Blood Culture - Preliminary No growth after 48 hours. 09/11/22 22:23 Blood - Venous Blood Culture - Final Streptococcus pneumoniae 09/11/22 22:23 Blood - Venous Blood Culture - Final Streptococcus pneumoniae Discharge Plan Discharge Anticipated Discharge Date/Time: 09/15/22 10:13 Patient Disposition: Home Health Service Discharge Diagnosis: sepsis due to invasive pneumococcal disease [bacteremia, pneumonia] Referrals: Teofilo Moreno III, MD [Primary Care Provider] - 1 Week Discharge Medications: New prednisone 10 mg tablet See Rx Instructions .ROUTE .COMPLEX Qty: 40 0RF Rx Instructions: 40 mg [4 tabs] daily x 4 days, then 30 mg [3 tabs] daily x 4 days, then 20 mg [2 tabs] daily x 4 days, then 10 mg [1 tab] daily x 4 days, then resume prior dose of 5 mg daily cefuroxime axetil 500 mg tablet 500 mg PO BID Qty: 22 0RF Continued ferrous sulfate 325 mg (65 mg iron) tablet,delayed release (DR/EC) 1 tab PO BID Qty: 60 1RF bumetanide 1 mg tablet 1 mg PO Q48H albuterol sulfate 2.5 mg /3 mL (0.083 %) solution for nebulization 2.5 mg inhalation Q4H PRN (Reason: Wheezing) albuterol sulfate 90 mcg/actuation HFA aerosol inhaler 2 inh inhalation Q6H PRN (Reason: Wheezing) (DME) lancets 30 gauge misc See Rx Instructions .ROUTE .MEDSUPPLY Qty: 100 Rx Instructions: As directed folic acid 1 mg tablet 1 mg PO DAILY verapamil 300 mg capsule, [address] 300 mg PO BEDTIME metformin 1,000 mg tablet 1,000 mg PO BIDWM magnesium oxide 400 mg (241.3 mg magnesium) tablet 400 mg PO BEDTIME aspirin 81 mg tablet,delayed release (DR/EC) 81 mg PO DAILY glipizide 10 mg tablet 10 mg PO BIDWM (DME) inhalat.spacing dev,large mask Spacer See Rx Instructions .ROUTE .MEDSUPPLY Qty: 1 Rx Instructions: As directed (DME) blood sugar diagnostic Strip See Rx Instructions Not Applicable .MEDSUPPLY Qty: 10 Rx Instructions: As directed omeprazole 20 mg capsule,delayed release(DR/EC) 20 mg PO DAILY@0630 Held prednisone 5 mg tablet 5 mg PO DAILY Hold Instructions: Resume on 10/02/22. Discharge Orders: Discharge Order (Routine); Ordered 09/15/22 Ordered By: Swati Rivera Diet: Diabetic diet Activity on Discharge: As tolerated Stand Alone Forms: Patient Portal Discharge page Care Plan Goals: recovery from infection Health Concerns: sepsis due to invasive pneumococcal disease [bacteremia, pneumonia] COPD exacerbation Plan of Treatment: cefuroxime 500 mg twice daily for 11 more days prednisone: 40 mg daily x 4 days, then 30 mg daily x 4 days, then 20 mg daily x 4 days, then 10 mg daily x 4 days, then resume prior dose of 5 mg daily Please follow up with your primary care doctor within 1 week. Return to the hospital if you experience recurrent or worsening symptoms. Assessment: See Discharge Summary.
--- NOTE | 2022-09-15 10:29 | MHC.CM.PN ---
PT WILL DC HOME TODAY WITH [facility] FAM[facility] TO TRANSPORT
[2022-09-15 11:31] LABS: Glucose, Whole Blood 217 mg/dL (60-115)
[2022-09-15 11:55] VITALS: PULSE 58; RESP 17; O2SAT 99
[2022-09-15] MEDS: cefTRIAXone sodium 2 GM in 0.9 % Sodium Chloride 50 ML IV (12:06)
== END 2022-09-15 13:58 | disposition home health service (06) | DRG 871 ==
LOC: HO.ED 21:45 → HO.EDOVER 09-12 00:26 → HO.S3 09-12 18:57
PROVIDERS: Admitting Provider Student in an Organized Health Care Education/Training Program; Emergency Provider Internal Medicine; PCP Internal Medicine; Visit Provider Family Medicine
DX: A41.9 Sepsis, unspecified organism (principal); J18.9 Pneumonia, unspecified organism; J96.01 Acute respiratory failure with hypoxia; J44.0 Chronic obstructive pulmonary disease with (acute) lower respiratory infection; J44.1 Chronic obstructive pulmonary disease with (acute) exacerbation; N17.9 Acute kidney failure, unspecified; I24.8 Other forms of acute ischemic heart disease; R65.20 Severe sepsis without septic shock; I12.9 Hypertensive chronic kidney disease with stage 1 through stage 4 chronic kidney disease, or unspecified chronic kidney disease; N18.30 Chronic kidney disease, stage 3 unspecified; E11.22 Type 2 diabetes mellitus with diabetic chronic kidney disease; B95.3 Streptococcus pneumoniae as the cause of diseases classified elsewhere; E11.65 Type 2 diabetes mellitus with hyperglycemia; K21.9 Gastro-esophageal reflux disease without esophagitis; Z20.822 Contact with and (suspected) exposure to COVID-19; Z91.040 Latex allergy status; Z88.8 Allergy status to other drugs, medicaments and biological substances; Z79.52 Long term (current) use of systemic steroids; Z79.82 Long term (current) use of aspirin; Z79.84 Long term (current) use of oral hypoglycemic drugs; Z79.899 Other long term (current) drug therapy
CPT/HCPCS: 0241U; 36415; 71045; 80048; 80053; 82565; 82947; 83605; 83880; 84145; 84484; 85007; 85025; 85027; 87040; 87070; 87077; 87186; 87205; 93005; 93306; 94640; 97161; 99285; J0456; J0696; J1650; J2920; J3370; Q9957

== ENCOUNTER 2023-01-11 18:04 | Emergency (ER) | payer OTHER, SELFPAY ==
[2023-01-11 18:07] VITALS: BP 168/83; PULSE 66; RESP 20; TEMP 36.9; O2SAT 95; BMI 28.1
--- NOTE | 2023-01-11 18:07 | ED_ITS ---
HPI - General Adult General Chief complaint: Recheck/Abnormal Lab/Rx Stated complaint: Elevated sugars Time Seen by Provider: 01/11/23 19:25 Source: patient and family (Daughter) Mode of arrival: ambulatory History of Present Illness HPI narrative: 82-year-old female known diabetic who presents with concerns regarding consistently elevated glucose levels despite taking her medication as prescribed. According to the patient she was doing just fine on her metformin and glipizide but then she was referred to Endocrinology who initially started her on Trulicity approximately 2 weeks ago but she developed itching and rash cell then was started on Ozempic which is weekly injection. Patient states that since that time her sugars have registered as high on her glucometer and she has had corresponding polydipsia an polyuria. She otherwise denies any new cough, sore throat, fever, chills, urinary pain or burning denies any abdominal discomfort. Related Data Home Medications Medication Instructions Recorded Confirmed aspirin 81 mg tablet,delayed 81 mg PO DAILY 06/15/20 09/12/22 release blood sugar diagnostic #10 ea 06/15/20 08/17/22 folic acid 1 mg tablet 1 mg PO DAILY 06/15/20 09/12/22 glipizide 10 mg tablet 10 mg PO BIDWM 06/15/20 09/12/22 inhalat.spacing dev,large mask #1 ea 06/15/20 08/17/22 lancets 30 gauge #100 ea 06/15/20 08/17/22 magnesium oxide 400 mg (241.3 mg 400 mg PO BEDTIME 06/15/20 09/12/22 magnesium) tablet metformin 1,000 mg tablet 1,000 mg PO BIDWM 06/15/20 09/12/22 omeprazole 20 mg capsule,delayed 20 mg PO DAILY@0630 06/15/20 09/12/22 release prednisone 5 mg tablet 5 mg PO DAILY 06/15/20 09/12/22 verapamil 300 mg capsule 24hr 300 mg PO BEDTIME 06/15/20 09/12/[address],ext.release albuterol sulfate 2.5 mg/3 mL 2.5 mg inhalation Q4H PRN Wheezing 09/12/22 09/12/22 (0.083 %) solution for nebulization albuterol sulfate 90 mcg/actuation 2 inh inhalation Q6H PRN Wheezing 09/12/22 aerosol inhaler bumetanide 1 mg tablet 1 mg PO Q48H 09/12/22 09/12/22 Previous Rx's Medication Instructions Recorded ferrous sulfate 325 mg (65 mg 1 tab PO BID #60 tabs 05/11/22 iron) tablet,delayed release cefuroxime axetil 500 mg tablet 500 mg PO BID #22 tabs 09/15/22 prednisone 10 mg tablet See Rx Instructions .Route 09/15/22 .COMPLEX #40 tabs Allergies Allergy/AdvReac Type Severity Reaction Status Date / Time latex [LATEX] Allergy Unknown RASH Verified 09/11/22 20:58 pineapple [PINEAPPLE] Allergy Unknown HIVES Verified 09/11/22 20:58 enalaprilat [From Vasotec] AdvReac Mild Unknown Verified 09/11/22 20:58 Review of Systems Review of Systems: Pertinent positives and negatives as stated in HPI [facility] Past Medical History Source: nursing notes reviewed Medical History Arthritis Bacteremia due to Streptococcus pneumoniae Benign paroxysmal positional vertigo COPD (chronic obstructive pulmonary disease) Hypoxia Restrictive lung disease Surgical History Hx of cholecystectomy Family History Family History Mother Diabetes Maternal Grandmother Diabetes Social History Social History Household Members: Family Housing: House Are you a primary healthcare risk control consultant to a significant other at home: No Do you presently have visiting nurse or other home services: Yes (hardwood floor layer comes to clean house) Alcohol intake: former Patient Tobacco Use Status: Never used Tobacco Cigarette Packs Per Day: 1 Advance Directives: No Advance Directives Information Provided: No service: No Current occupational status: unemployed Physical Exam ED Vital Signs: Vital Signs - 24 hr 01/11/23 18:07 01/11/23 19:39 01/11/23 21:16 Temperature 98.4 F 98.0 F 97.8 F Pulse Rate 66 57 57 Respiratory Rate 20 16 16 Blood Pressure 168/83 H 162/60 H 158/63 H Pulse Oximetry 95 95 94 Oxygen Delivery Method Room Air Room Air Room Air BMI result Body Mass Index 28.1 VITAL SIGNS: Reviewed. GENERAL: Well developed, well nourished, in no acute distress. HEAD: Normocephalic/atraumatic EYES: PERRLA, EOMI EARS: Ext canals without abnormality NOSE: Nares patent bilateral OROPHARYNX: no oral lesions noted, posterior pharynx clear NECK: Supple, no adenopathy LUNGS: Normal breath sounds. No adventitious sounds or accessory muscle use. Sp O2<94> CARDIOVASCULAR: Regular rate and rhythm without noted murmurs, no JVD or lower extremity edema. ABDOMEN: Soft, non-tender, non-distended with bowel sounds. MUSCULOSKELETAL: No tenderness, deformities, or effusions noted on gross inspection. EXTREMITIES: No cyanosis, clubbing or edema. SKIN: Inspection of the skin reveals no rashes NEUROLOGIC: Alert and oriented x 4. Strength and sensation to light touch were grossly intact x 4. Course Course Course Narrative: This is rapid medical exam. Deferred additional HPI, ROS, PE to primary provider. 82 yo female with history of hypertension, diabetes , COPD ,vertigo, aortic stenosis here with critically high blood sugars at home (500s) x 7 days since changing her diabetic medications from glipizide/metformin to semaglutide per family. Will check labs, UA. VSS Medications Administered Discontinued Medications Generic Name Dose Route Start Last Admin Trade Name Freq PRN Reason Stop Dose Admin Sodium Chloride 1,000 mls @ 999 mls/hr 01/11/23 19:25 01/11/23 21:20 Ns IV 01/11/23 20:25 Infused .Q1H1M STA Infusion Sodium Chloride 500 mls @ 999 mls/hr 01/11/23 20:15 01/11/23 22:09 Ns IV 01/11/23 20:45 999 mls/hr .Q31M THAD Administration Insulin Human Lispro 5 unit 01/11/23 20:25 01/11/23 20:38 Insulin Lispro 100 Unit/Ml 3 Ml Vial SUBCUT 01/11/23 20:26 5 unit ONCE ONE Administration Medical Decision Making Medical Decision Making [facility] Narrative: 82-year-old female with history and clinical presentation of hyperglycemia without evidence to suggest HHS or DKA. On review of all investigations there is a noted KLAUS, patient received fluids as well as 5 units of subcutaneous insulin with consistent down trending of point of care glucose. The KLAUS has not improved but feel that patient is stable for outpatient repeat labs and instructed to call her primary care doctor 1st thing in the morning for whomever is on-call. There is no other evidence of acute infection and she is discharged home in stable condition. Differential Diagnosis Please see the discussion above Lab Data Please see the discussion above 01/11/23 18:41 01/11/23 20:52 Labs: Lab Results 01/11/23 01/11/23 01/11/23 Range/Units 18:41 18:41 18:41 WBC 11.9 H (4.8-10.8) X10*3/uL RBC 4.25 D (4.20-5.50) X10*6/uL Hgb 12.8 D (12.0-16.0) g/dl Hct 38.3 D (37.0-47.0) % MCV 90.1 (80.0-98.0) fL MCH 30.1 (27.0-33.0) pg MCHC 33.4 (31.0-35.0) g/dl RDW 12.4 (11.0-16.0) % Plt Count 253 (160-400) X10*3/uL MPV 11.2 (9.4-12.3) fL Immature Gran % (Auto) 0.5 H (0.0-0.4) % Neut % (Auto) 87.3 H (45-73) % Lymph % (Auto) 9.8 L (20-40) % [place] % (Auto) 1.8 L (2-11) % Eos % (Auto) 0.3 (0-4) % Baso % (Auto) 0.3 (0-2) % Lymph # (Auto) 1.2 (1.2-4.9) X10*3/uL [place] # (Auto) 0.2 (0.1-1.2) X10*3/uL Eos # (Auto) 0.0 (0.0-0.4) X10*3/uL Baso # (Auto) 0.0 (0.0-0.2) X10*3/uL Abs Immat Gran (auto) 0.06 H (0.00-0.03) X10*3/uL Absolute Neuts (auto) 10.4 H (2.0-8.3) x10*3/uL Absolute Nucleated RBC 0.000 (0.0-0.012) X10*3/uL Nucleated RBC % (auto) 0.0 (0.0-0.2) /100WBC VBG pH (7.32-7.43) VBG pCO2 mmHg VBG pO2 mmHg VBG HCO3 (22-26) mmol/L VBG O2 Saturation % VBG Base Excess mmol/L Sodium 131 L (135-145) mmol/L Potassium 4.8 (3.3-5.1) mmol/L Chloride 94 L (96-108) mmol/L Carbon Dioxide 23 (22-29) mmol/L Anion Gap 19 (12-20) BUN 33 H (9-16) mg/dL Creatinine 1.64 H (0.5-1.4) mg/dL Estim Creat Clear Calc 21.7 Estimated GFR 30 POC Glucose (60-115) mg/dL Random Glucose 607 H* (60-115) mg/dL Calcium 10.1 D (8.4-10.2) mg/dL Total Bilirubin 1.0 (0.0-1.0) mg/dL Direct Bilirubin 0.3 (0.0-0.5) mg/dL AST 19 (5-31) U/L ALT 19 (0-31) U/L Alkaline Phosphatase 86 (39-117) U/L Total Protein 7.1 (6.5-8.0) g/dL Albumin 3.9 (3.5-5.0) g/dL Urine Color Urine Appearance Urine pH (5.0-9.0) Ur Specific Swain (1.005-1.025) Urine Protein (Neg-Trace) mg/dL Urine Glucose (UA) (Negative) mg/dL Urine Ketones (Negative) mg/dL Urine Blood (Negative) Urine Nitrite (Negative) Ur Leukocyte Esterase (Negative) Urine RBC (0-2) /HPF Urine WBC (0-5) /HPF Ur Squamous Epith Cells (0-2) /HPF Urine Bacteria (None Seen) Hyaline Casts (0-2) /LPF B-Hydroxybutyrate 0.87 H (0.02-0.027) mmol/L 01/11/23 01/11/23 01/11/23 Range/Units 18:44 20:37 20:52 WBC (4.8-10.8) X10*3/uL RBC (4.20-5.50) X10*6/uL Hgb (12.0-16.0) g/dl Hct (37.0-47.0) % MCV (80.0-98.0) fL MCH (27.0-33.0) pg MCHC (31.0-35.0) g/dl RDW (11.0-16.0) % Plt Count (160-400) X10*3/uL MPV (9.4-12.3) fL Immature Gran % (Auto) (0.0-0.4) % Neut % (Auto) (45-73) % Lymph % (Auto) (20-40) % [place] % (Auto) (2-11) % Eos % (Auto) (0-4) % Baso % (Auto) (0-2) % Lymph # (Auto) (1.2-4.9) X10*3/uL [place] # (Auto) (0.1-1.2) X10*3/uL Eos # (Auto) (0.0-0.4) X10*3/uL Baso # (Auto) (0.0-0.2) X10*3/uL Abs Immat Gran (auto) (0.00-0.03) X10*3/uL Absolute Neuts (auto) (2.0-8.3) x10*3/uL Absolute Nucleated RBC (0.0-0.012) X10*3/uL Nucleated RBC % (auto) (0.0-0.2) /100WBC VBG pH 7.42 (7.32-7.43) VBG pCO2 40 mmHg VBG pO2 62 mmHg VBG HCO3 26 (22-26) mmol/L VBG O2 Saturation 89.0 % VBG Base Excess 1.9 mmol/L Sodium 134 L (135-145) mmol/L Potassium 4.5 (3.3-5.1) mmol/L Chloride 98 (96-108) mmol/L Carbon Dioxide 22 (22-29) mmol/L Anion Gap 19 (12-20) BUN 33 H (9-16) mg/dL Creatinine 1.68 H (0.5-1.4) mg/dL Estim Creat Clear Calc 21.2 Estimated GFR 29 POC Glucose (60-115) mg/dL Random Glucose 481 H* (60-115) mg/dL Calcium 9.5 (8.4-10.2) mg/dL Total Bilirubin (0.0-1.0) mg/dL Direct Bilirubin (0.0-0.5) mg/dL AST (5-31) U/L ALT (0-31) U/L Alkaline Phosphatase (39-117) U/L Total Protein (6.5-8.0) g/dL Albumin (3.5-5.0) g/dL Urine Color Yellow Urine Appearance Clear Urine pH 6.5 (5.0-9.0) Ur Specific Swain 1.010 (1.005-1.025) Urine Protein Negative (Neg-Trace) mg/dL Urine Glucose (UA) >=1000 H (Negative) mg/dL Urine Ketones Negative (Negative) mg/dL Urine Blood Negative (Negative) Urine Nitrite Negative (Negative) Ur Leukocyte Esterase Trace H (Negative) Urine RBC 0-2 (0-2) /HPF Urine WBC 0-5 (0-5) /HPF Ur Squamous Epith Cells 0-2 (0-2) /HPF Urine Bacteria None Seen (None Seen) Hyaline Casts 0-2 (0-2) /LPF B-Hydroxybutyrate (0.02-0.027) mmol/L 01/11/23 01/11/23 Range/Units 21:24 23:00 WBC (4.8-10.8) X10*3/uL RBC (4.20-5.50) X10*6/uL Hgb (12.0-16.0) g/dl Hct (37.0-47.0) % MCV (80.0-98.0) fL MCH (27.0-33.0) pg MCHC (31.0-35.0) g/dl RDW (11.0-16.0) % Plt Count (160-400) X10*3/uL MPV (9.4-12.3) fL Immature Gran % (Auto) (0.0-0.4) % Neut % (Auto) (45-73) % Lymph % (Auto) (20-40) % [place] % (Auto) (2-11) % Eos % (Auto) (0-4) % Baso % (Auto) (0-2) % Lymph # (Auto) (1.2-4.9) X10*3/uL [place] # (Auto) (0.1-1.2) X10*3/uL Eos # (Auto) (0.0-0.4) X10*3/uL Baso # (Auto) (0.0-0.2) X10*3/uL Abs Immat Gran (auto) (0.00-0.03) X10*3/uL Absolute Neuts (auto) (2.0-8.3) x10*3/uL Absolute Nucleated RBC (0.0-0.012) X10*3/uL Nucleated RBC % (auto) (0.0-0.2) /100WBC VBG pH (7.32-7.43) VBG pCO2 mmHg VBG pO2 mmHg VBG HCO3 (22-26) mmol/L VBG O2 Saturation % VBG Base Excess mmol/L Sodium (135-145) mmol/L Potassium (3.3-5.1) mmol/L Chloride (96-108) mmol/L Carbon Dioxide (22-29) mmol/L Anion Gap (12-20) BUN (9-16) mg/dL Creatinine (0.5-1.4) mg/dL Estim Creat Clear Calc Estimated GFR POC Glucose 421 H* 291 H (60-115) mg/dL Random Glucose (60-115) mg/dL Calcium (8.4-10.2) mg/dL Total Bilirubin (0.0-1.0) mg/dL Direct Bilirubin (0.0-0.5) mg/dL AST (5-31) U/L ALT (0-31) U/L Alkaline Phosphatase (39-117) U/L Total Protein (6.5-8.0) g/dL Albumin (3.5-5.0) g/dL Urine Color Urine Appearance Urine pH (5.0-9.0) Ur Specific Sw[place] (1.005-1.025) Urine Protein (Neg-Trace) mg/dL Urine Glucose (UA) (Negative) mg/dL Urine Ketones (Negative) mg/dL Urine Blood (Negative) Urine Nitrite (Negative) Ur Leukocyte Esterase (Negative) Urine RBC (0-2) /HPF Urine WBC (0-5) /HPF Ur Squamous Epith Cells (0-2) /HPF Urine Bacteria (None Seen) Hyaline Casts (0-2) /LPF B-Hydroxybutyrate (0.02-0.027) mmol/L Chronic Conditions Patient?s care impacted by: Diabetes Discharge Plan Discharge Clinical Impression: Hyperglycemia, KLAUS (acute kidney injury) Patient Disposition: Home, Self-Care Instructions: Acute Kidney Injury (DC), Diabetic Hyperglycemia (ED) Additional Instructions: 1. Reanudar todos los medicamentos caseros seg?n lo prescrito. 2. Deber? realizar un seguimiento con amaya m?dico para repetir los an?lisis de laboratorio para evaluar desiree ri?ones. 3. Llame a la oficina de amaya proveedor de atenci?n primaria el lunes por la ma?myra, o intente comunicarse con amaya endocrin?logo para cambiar amaya medicamento. Regrese a la anahi de emergencias si los s?ntomas empeoran. 1. Resume all home medications as prescribed. 2. You will need to follow-up with your doctor to get repeat lab work to evaluate your kidneys. 3. Please call the office of your primary care provider on Saturday morning, or attempts to reach out to your larder cook to get your medication changed. Return to the ER for any worsening symptoms. Prescriptions: No Action ferrous sulfate 325 mg (65 mg iron) tablet,delayed release (DR/EC) 1 tab PO BID Qty: 60 1RF bumetanide 1 mg tablet 1 mg PO Q48H albuterol sulfate 2.5 mg /3 mL (0.083 %) solution for nebulization 2.5 mg inhalation Q4H PRN (Reason: Wheezing) albuterol sulfate 90 mcg/actuation HFA aerosol inhaler 2 inh inhalation Q6H PRN (Reason: Wheezing) prednisone 10 mg tablet See Rx Instructions .ROUTE .COMPLEX Qty: 40 0RF Rx Instructions: 40 mg [4 tabs] daily x 4 days, then 30 mg [3 tabs] daily x 4 days, then 20 mg [2 tabs] daily x 4 days, then 10 mg [1 tab] daily x 4 days, then resume prior dose of 5 mg daily cefuroxime axetil 500 mg tablet 500 mg PO BID Qty: 22 0RF (DME) lancets 30 gauge misc See Rx Instructions .ROUTE .MEDSUPPLY Qty: 100 Rx Instructions: As directed folic acid 1 mg tablet 1 mg PO DAILY verapamil 300 mg capsule, [address] 300 mg PO BEDTIME metformin 1,000 mg tablet 1,000 mg PO BIDWM magnesium oxide 400 mg (241.3 mg magnesium) tablet 400 mg PO BEDTIME aspirin 81 mg tablet,delayed release (DR/EC) 81 mg PO DAILY prednisone 5 mg tablet 5 mg PO DAILY Hold Instructions: Resume on 10/02/22. glipizide 10 mg tablet 10 mg PO BIDWM (DME) inhalat.spacing dev,large mask Spacer See Rx Instructions .ROUTE .MEDSUPPLY Qty: 1 Rx Instructions: As directed (DME) blood sugar diagnostic Strip See Rx Instructions Not Applicable .MEDSUPPLY Qty: 10 Rx Instructions: As directed omeprazole 20 mg capsule,delayed release(DR/EC) 20 mg PO DAILY@0630 Referrals: Teofilo Moreno III, MD [Primary Care Provider] - Print Language: Mongolian
[2023-01-11 18:47] LABS: MANUAL DIFF FLAG NO
[2023-01-11 18:50] LABS: Venous Blood Gas Refer to POC result
[2023-01-11 18:51] LABS: VBG Base Excess 1.9 mmol/L; VBG HCO3 26 mmol/L (22-26); VBG pCO2 40 mmHg; VBG pH 7.42 (7.32-7.43); VBG pO2 62 mmHg
[2023-01-11 18:53] LABS: Basophils Percent Auto 0.3 % (0-2); Eosinophils Percent Auto 0.3 % (0-4); Hematocrit 38.3 % (37.0-47.0); Hemoglobin 12.8 g/dl (12.0-16.0); Imm Gran Abs Auto 0.06 X10*3/uL (0.00-0.03); Imm Gran Pct Auto 0.5 % (0.0-0.4); Lymphocytes Absolute Auto 1.2 X10*3/uL (1.2-4.9); Lymphocytes Percent Auto 9.8 % (20-40); Mean Corpuscular HGB Conc 33.4 g/dl (31.0-35.0); Mean Corpuscular Hemoglobin 30.1 pg (27.0-33.0); Mean Corpuscular Volume 90.1 fL (80.0-98.0); Mean Platelet Volume 11.2 fL (9.4-12.3); Monocytes Absolute Auto 0.2 X10*3/uL (0.1-1.2); Monocytes Percent Auto 1.8 % (2-11); Neutrophils Absolute Auto 10.4 x10*3/uL (2.0-8.3); Neutrophils Percent Auto 87.3 % (45-73); Platelet Count 253 X10*3/uL (160-400); Red Blood Count 4.25 X10*6/uL (4.20-5.50); Red Cell Distribution Width 12.4 % (11.0-16.0); White Blood Count 11.9 X10*3/uL (4.8-10.8)
[2023-01-11 19:09] LABS: Beta-Hydroxybutyrate 0.87 mmol/L (0.02-0.027)
[2023-01-11 19:14] LABS: Alanine Aminotransferase 19 U/L (0-31); Albumin Level 3.9 g/dL (3.5-5.0); Alkaline Phosphatase 86 U/L (39-117); Anion Gap 19 (12-20); Aspartate Amino Transferase 19 U/L (5-31); Bilirubin Direct 0.3 mg/dL (0.0-0.5); Blood Urea Nitrogen 33 mg/dL (9-16); Calcium 10.1 mg/dL (8.4-10.2); Carbon Dioxide 23 mmol/L (22-29); Chloride 94 mmol/L (96-108); Creatinine Clr Calc Pharmacy 21.7; Estimated Glomerular Filt Rate 30; Glucose Random 607 mg/dL (60-115); Potassium 4.8 mmol/L (3.3-5.1); Sodium 131 mmol/L (135-145); Total Protein 7.1 g/dL (6.5-8.0)
[2023-01-11 19:39] VITALS: BP 162/60; PULSE 57; RESP 16; TEMP 36.7; O2SAT 95
[2023-01-11] MEDS: 0.9 % Sodium Chloride 1,000 ML 999 ML IV (19:45)
[2023-01-11] MEDS: Insulin Lispro 100 UNIT/ML 3 ML VIAL SUBCUT (20:38)
[2023-01-11 20:44] LABS: Appearance Urine Clear; Color Urine Yellow; Glucose Urine UA >=1000 mg/dL (Negative); Leukocyte Esterase Urine Trace (Negative); Nitrite Urine Negative (Negative); PH 6.5 (5.0-9.0); UMIC TRIGGER UACC YES; Urine Blood Negative (Negative); Urine Ketones Negative (Negative); Urine Protein Negative (Neg-Trace)
[2023-01-11 21:16] VITALS: BP 158/63; PULSE 57; RESP 16; TEMP 36.6; O2SAT 94
[2023-01-11 21:22] LABS: Bacteria Urine None Seen (None Seen); Hyaline Casts Urine 0-2 /LPF (0-2); RBC Urine 0-2 /HPF (0-2); Squamous Epithelial Cell Urine 0-2 /HPF (0-2); WBC Urine 0-5 /HPF (0-5)
[2023-01-11 21:27] LABS: Anion Gap 19 (12-20); Blood Urea Nitrogen 33 mg/dL (9-16); Calcium 9.5 mg/dL (8.4-10.2); Carbon Dioxide 22 mmol/L (22-29); Chloride 98 mmol/L (96-108); Creatinine Clr Calc Pharmacy 21.2; Estimated Glomerular Filt Rate 29; Glucose Random 481 mg/dL (60-115); Potassium 4.5 mmol/L (3.3-5.1); Sodium 134 mmol/L (135-145)
[2023-01-11 21:29] LABS: Glucose, Whole Blood 421 mg/dL (60-115)
[2023-01-11] MEDS: 0.9 % Sodium Chloride 500 ML 999 ML IV (22:09)
[2023-01-11 23:04] LABS: Glucose, Whole Blood 291 mg/dL (60-115)
[2023-01-11 23:25] VITALS: BP 175/71; PULSE 56; RESP 17; TEMP 36.5; O2SAT 95
== END 2023-01-11 23:51 | disposition home or self-care (01) ==
PROVIDERS: Nurse Practitioner Family; Emergency Provider Student in an Organized Health Care Education/Training Program; PCP Internal Medicine
DX: E11.65 Type 2 diabetes mellitus with hyperglycemia (principal); Z79.899 Other long term (current) drug therapy; Z79.84 Long term (current) use of oral hypoglycemic drugs
CPT/HCPCS: 36415; 80048; 80076; 81001; 81003; 82010; 82803; 82947; 85025; 96360; 96361; 99284; 99285

== ENCOUNTER 2023-02-06 13:35 | Outpatient (AMB) | payer OTHER, SELFPAY ==
[2023-02-06 13:44] VITALS: BP 122/60; PULSE 52; O2SAT 93; BMI 28.1
--- NOTE | 2023-02-06 13:44 | MHC.OFFVIS ---
Intake Vital Signs 02/06/23 13:44 Height 4 ft 11 in Weight 139 lb BMI 28.1 BP 122/60 Blood Pressure Location Lt brachial Position Standing Pulse 52 Pulse Source Pulse Oximeter Pulse Oximetry (%) 93 Oxygen Delivery Method Room Air Intake Visit Reasons: copd Intake Note: pt is here for follow up and states she is feeling well. Hospital Staff Pharmacist Required: No Allergies latex [LATEX] Allergy (Unknown, Verified 02/06/23 13:57) RASH pineapple [PINEAPPLE] Allergy (Unknown, Verified 02/06/23 13:57) HIVES enalaprilat [From Vasotec] Adverse Reaction (Mild, Verified 02/06/23 13:57) Unknown Medication List - Last Reconciled 02/06/23 by Clifton Reese MD albuterol sulfate 90 mcg/actuation 2 inhalations inhalation Q6H PRN albuterol sulfate 2.5 mg inhalation Q4H PRN aspirin 81 mg PO DAILY blood sugar diagnostic As directed bumetanide 1 mg PO Q48H chlorthalidone 25 mg PO DAILY dulaglutide (Trulicity) mg subcut folic acid 1 mg PO DAILY inhalat.spacing dev,large mask As directed lancets As directed magnesium oxide 400 mg PO BEDTIME omeprazole 20 mg PO DAILY@0630 prednisone 5 mg PO DAILY verapamil ER 300 mg PO BEDTIME Do you need a note to return to daycare/school/sports/work: No HPI copd HPI Details 82 YEARS OLD VERY PLEASANT FEMALE, COMES AFTER 6 MONTHS FOR FOLLOW-UP FOR HER COPD. HER BREATHING STATUS HAS REMAINED VERY STABLE WITH MINOR FLUCTUATIONS OFF AND ON. SHE HAS HAD NO SERIOUS RESPIRATORY INFECTION OR ACUTE EXACERBATION IN THE LAST 6 MONTHS. SHE STAYS HOME MOST OF THE TIME, USES ALBUTEROL SOLUTION IN THE NEBULIZER ONLY ONCE OR TWICE A DAY AT THE MOST. THIS PATIENT IS ON PREDNISONE 10 MG A DAY FOR HER GENERALIZED ARTHRITIS. FOR THIS REASON SHE IS NOT ON ANY INHALED STEROIDS. [facility] Medical History Arthritis Bacteremia due to Streptococcus pneumoniae Benign paroxysmal positional vertigo COPD (chronic obstructive pulmonary disease) Hypoxia Restrictive lung disease Surgical History Hx of cholecystectomy Family History Mother Diabetes Maternal Grandmother Diabetes Social History Household Members: Family Housing: House Are you a primary youth career specialist to a significant other at home: No Do you presently have visiting nurse or other home services: Yes (screen handler comes to clean house) Alcohol intake: former Patient Tobacco Use Status: Never used Tobacco Cigarette Packs Per Day: 1 service: No Current occupational status: unemployed Review of Systems Const All systems reviewed & are unremarkable except as noted in HPI and below Eyes Reports no additional complaints ENT Reports no additional complaints Card Denies chest pain, Denies irregular heart rhythm and Denies leg edema Resp Reports as per HPI GI Reports no additional complaints Reports no additional complaints Musc Reports abnormal gait (Slow and uses cane), Reports back pain, Reports deformity and Reports muscle weakness (General muscular weakness) Skin/Breast Reports system reviewed and no additional complaints, except as documented Neuro Reports no additional complaints and Reports abnormal gait (Slow and uses cane) Psych Reports no additional complaints Physical Exam Vital Signs: Last Vital Signs Pulse 52 02/06/23 13:44 BP 122/60 02/06/23 13:44 Pulse Ox 93 02/06/23 13:44 Oxygen Delivery Method Room Air 02/06/23 13:44 BMI result Body Mass Index 28.1 Const General: comfortable, no acute distress, alert and awake Orientation/consciousness: patient oriented x3 HEENT Head: Yes normal to inspection General nose exam: No nasal polyps present and No nasal discharge present Face and sinus: Yes sinuses nontender Mouth: oropharynx normal Throat: Yes posterior oropharynx normal Eyes General: appearance normal, both eyes and all related structures Neck Neck: Yes normal visual inspection, Yes no lymphadenopathy, Yes trachea midline and Yes no JVD Thyroid: Thyroid normal Chest Chest palpation & inspection: normal inspection of the chest, normal palpation of entire chest wall and no tenderness Resp Other: Percussion note resonant, breath sounds are distant with prolonged expiratory phase. No wheezes or rhonchi or crepitations are heard . Cardio Palpation: normal PMI Rate: regular rate Rhythm: regular rhythm Heart sounds: no gallops and no murmurs GI Palpation (GI): Soft to palpation, nontender, No hepatosplenomegaly present and no masses Auscultation: normal bowel sounds Back/Spine/Pelvis Thoracic/Lumbar Spine: thoracic and lumbar spine normal to inspection and thoraco-lumbar ROM limited Skin General skin exam: no rashes or lesions noted Neuro General: patient oriented x3, No gait normal (Slow and needs the cane for support) and no focal motor deficits Cranial nerves: Yes CN's II-XII intact bilaterally Extrem General: Yes normal to inspection, Yes no clubbing, cyanosis or edema and Yes no calf tenderness Psych Appearance: grossly normal and well kempt Speech and movement: Normal speech and movement present Assessment & Plan Assessment & Plan (1) COPD exacerbation: Comment: Patient has chronic obstructive pulmonary disease, Is staying very stable, [place] : Oral prednisone 10 mg a day that she takes for her arthritis, keeps lungs clear. ALBUTEROL SOLUTION IN THE NEBULIZER Q 4-6 HOURS ONLY P.R.N. AND ALBUTEROL HFA 2 PUFFS Q 4-6 HOURS P.R.N. WHEN SHE GOES OUTDOORS. Code(s): J44.1 - Chronic obstructive pulmonary disease with (acute) exacerbation (2) Restrictive lung disease: Comment: She has moderate restrictive pulmonary disorder which is probably due to obesity. The only treatment she needs is to keep the weight under control and Frequent deep breathing exercises. Code(s): J98.4 - Other disorders of lung Coding Level of Care Code Est Pt Level 3 (46698) Diagnoses COPD exacerbation J44.1 Restrictive lung disease J98.4
== END 2023-02-06 14:03 | disposition home or self-care (01) ==
PROVIDERS: PCP Internal Medicine; Visit Provider Internal Medicine
DX: J44.1 Chronic obstructive pulmonary disease with (acute) exacerbation (principal); J98.4 Other disorders of lung
CPT/HCPCS: 99213

== ENCOUNTER → 2023-02-06 13:35 | Outpatient (BNVA) | payer OTHER, SELFPAY | PROVIDERS: Visit Provider Internal Medicine | DX: J44.1 Chronic obstructive pulmonary disease with (acute) exacerbation (principal); J98.4 Other disorders of lung | CPT/HCPCS: 99212 ==

== ENCOUNTER 2023-05-25 13:21 | Emergency (ER) | payer OTHER, SELFPAY ==
--- NOTE | ~2023-05-25 | XR_ITS ---
EXAMINATION: XR CHEST CLINICAL INFORMATION: Cough COMPARISON: 09/11/2022 TECHNIQUE: Frontal view of the chest was obtained. FINDINGS: Mild cardia megaly. No significant abnormality is noted involving the heart, lungs, mediastinum, bony thorax or soft tissues. XR/XR chest 1V IMPRESSION: Unremarkable examination. No infiltrate.
[2023-05-25 14:07] VITALS: BP 160/55; PULSE 66; RESP 17; TEMP 36.8; O2SAT 94; BMI 29.5
--- NOTE | 2023-05-25 14:54 | ECG_ITS ---
Test Reason : SOB Blood Pressure : / mmHG Vent. Rate : 059 BPM Atrial Rate : 059 BPM P-R Int : 144 ms QRS Dur : 146 ms QT Int : 464 ms P-R-T Axes : 050 001 108 degrees QTc Int : 459 ms Sinus bradycardia Left bundle branch block Abnormal ECG When compared with ECG of 11-SEP-2022 21:32, No significant change was found Referred By: Dhara Munoz Electronically Signed By:MARY VALVERDE MD
--- NOTE | 2023-05-25 15:08 | ED_ITS ---
HPI - URI/Sore Throat General Chief Complaint: Upper Respiratory Symptoms Stated Complaint: Congestion cough asthma Time Seen by Provider: 05/25/23 14:54 Source: patient and family Mode of arrival: ambulatory History of Present Illness HPI Narrative: 82-year-old female who arrives with cough and asthma symptoms since Saturday but patient denies any fevers or chills and states her inhalers have not been working. Related Data Home Medications Medication Instructions Recorded Confirmed aspirin 81 mg tablet,delayed 81 mg PO DAILY 06/15/20 02/08/23 release blood sugar diagnostic #10 ea 06/15/20 02/08/23 folic acid 1 mg tablet 1 mg PO DAILY 06/15/20 02/08/23 inhalat.spacing dev,large mask #1 ea 06/15/20 02/08/23 lancets 30 gauge #100 ea 06/15/20 02/08/23 magnesium oxide 400 mg (241.3 mg 400 mg PO BEDTIME 06/15/20 02/08/23 magnesium) tablet omeprazole 20 mg capsule,delayed 20 mg PO DAILY@0630 06/15/20 02/08/23 release prednisone 5 mg tablet 5 mg PO DAILY 06/15/20 02/08/23 verapamil 300 mg capsule 24hr 300 mg PO BEDTIME 06/15/20 02/08/[address],ext.release bumetanide 1 mg tablet 1 mg PO Q48H 09/12/22 02/08/23 chlorthalidone 25 mg tablet 25 mg PO DAILY 02/06/23 02/08/23 blood sugar diagnostic (FreeStyle 02/08/23 02/08/23 Lite Strips) insulin glargine 100 unit/mL 14 unit subcut DAILY 02/08/23 02/08/23 subcutaneous solution (Lantus U-100 Insulin) Previous Rx's Medication Instructions Recorded albuterol sulfate 2.5 mg/3 mL 2.5 mg (3 mL) inhalation Q4-6H PRN 05/21/23 (0.083 %) solution for nebulization for wheezing #75 mL albuterol sulfate 90 mcg/actuation 2 puff PO Q8H PRN shortness of 05/21/23 aerosol inhaler (Ventolin HFA) breath or wheezing #18 ea prednisone 50 mg tablet 50 mg PO DAILY 4 days #4 tabs 10/28/23 Allergies Allergy/AdvReac Type Severity Reaction Status Date / Time latex [LATEX] Allergy Unknown RASH Verified 02/06/23 13:57 pineapple [PINEAPPLE] Allergy Unknown HIVES Verified 02/06/23 13:57 enalaprilat [From Vasotec] AdvReac Mild Unknown Verified 02/06/23 13:57 Review of Systems Review of Systems: Pertinent positives and negatives as stated in [facility] Past Medical History Source: nursing notes reviewed Medical History Bacteremia due to Streptococcus pneumoniae Benign paroxysmal positional vertigo Hypoxia Arthritis Restrictive lung disease COPD (chronic obstructive pulmonary disease) Surgical History Hx of cholecystectomy Family History Family History Mother Diabetes Maternal Grandmother Diabetes Social History Social History Household Members: Family Housing: House Are you a primary skin care specialist to a significant other at home: No Do you presently have visiting nurse or other home services: Yes (water pollution control inspector comes to clean house) Alcohol intake: former Patient Tobacco Use Status: Never used Tobacco Cigarette Packs Per Day: 1 Advance Directives: Yes Advance Directives Information Provided: No Advance Directives on File: No service: No Current occupational status: unemployed Physical Exam Vital Signs: Vital Signs: Last Vital Signs Temp 98.2 F 05/25/23 14:07 Pulse 63 05/25/23 15:15 Resp 24 H 05/25/23 15:15 BP 160/55 H 05/25/23 14:07 Pulse Ox 94 05/25/23 14:07 O2 Del Method Room Air 05/25/23 14:07 BMI result Body Mass Index 29.5 VITAL SIGNS: Reviewed. GENERAL: Well developed, well nourished, in no acute distress. HEAD: Normocephalic/atraumatic EYES: PERRLA, EOMI EARS: Ext canals without abnormality NOSE: Nares patent bilateral OROPHARYNX: no oral lesions noted, posterior pharynx clear NECK: Supple, no adenopathy LUNGS: Decreased breath sounds bilaterally with expiratory wheeze. SpO2<94> CARDIOVASCULAR: Regular rate and rhythm without noted murmurs, no JVD or lower extremity edema. ABDOMEN: Soft, non-tender, non-distended with bowel sounds. MUSCULOSKELETAL: No tenderness, deformities, or effusions noted on gross inspection. EXTREMITIES: No cyanosis, clubbing or edema. SKIN: Inspection of the skin reveals no rashes NEUROLOGIC: Alert and oriented x 4. Strength and sensation to light touch were grossly intact x 4. Medications Administered Discontinued Medications Generic Name Dose Route Start Last Admin Trade Name Freq PRN Reason Stop Dose Admin Albuterol Sulfate 2.5 mg/ 0 mg 05/25/23 15:10 05/25/23 15:14 Albuterol/Ipratropium 3 ml INHALE 05/25/23 15:11 5 dose ONCE ONE Administration Prednisone 50 mg 05/25/23 14:59 05/25/23 15:37 Prednisone 10 Mg Tablet PO 05/25/23 15:00 50 mg ONCE ONE Administration Medical Decision Making Medical Decision Making [facility] Narrative: 82-year-old female with history and clinical presentation, DDX: Viral illness, COPD, low clinical suspicion for pneumonia or ACS. Reviewed all investigations and EKG negative for evidence of STEMI, chest x-ray negative for infiltrate and otherwise my interpretation is in agreement with radiology's impression. Viral testing negative for COVID-19 and influenza. Patient received initial prednisone as well as albuterol treatment here in the emergency room. She will be discharged on remaining course of steroids. On re-evaluation patient endorses that she feels much improved and she is discharged home on remaining course of steroids with return precautions. Differential Diagnosis Differential Diagnoses: The differential diagnosis associated with the presenta tion includes Please see the discussion above Admission/Observation Consideration of admission/observation: Escalation of care including admission/observation considered Please see the discussion above Lab Data [facility] Lab Attestation statement: I reviewed the patient's lab results. Please see the discussion above Labs: Lab Results 05/25/23 Range/Units 15:00 COVID-19 (SURY) Negative (Negative) COVID-19 Clin Com See Note Influenza Type A (ELIER) Negative (Negative) Influenza Type B (ELIER) Negative (Negative) Influenza A & B Note See Note Independent Interpretation I performed an independent interpretation of an: EKG Interpretation: Sinus bradycardia, HR-59, no STEMI, LBBB at baseline, [place]/QTC are within normal limits. Radiology Impression Discussion of test interpretation with radiology: I have reviewed the radiologist's reading. Radiologist Impression: Please see the discussion above External Record Review External record reviewed: Outpatient record, Prior outpatient labs and Prior outpatient radiology Chronic Conditions Patient?s care impacted by: Other COPD Discharge Plan Discharge Clinical Impression: COPD (chronic obstructive pulmonary disease), Viral illness Patient Disposition: Home, Self-Care Instructions: COPD (Chronic Obstructive Pulmonary Disease) (ED), Viral Syndrome (ED) Additional Instructions: 1. Reanudar todos los medicamentos caseros seg?n lo recetado. 2. Complete el ciclo corto de esteroides que le recetaron. 3. Arina un seguimiento con amaya m?dico de atenci?n primaria el . Regrese a la anahi de emergencias si los s?ntomas empeoran. 1. Resume all home medications as prescribed. 2. Complete the short course of steroids that you have been prescribed. 3. Please follow-up with your primary care doctor on Saturday. Return to the ER for any worsening symptoms. Prescriptions: New prednisone 50 mg tablet 50 mg PO DAILY 4 Days Qty: 4 0RF No Action albuterol sulfate 2.5 mg /3 mL (0.083 %) solution for nebulization 2.5 mg inhalation Q4-6H PRN (Reason: for wheezing) Qty: 75 3RF albuterol sulfate [Ventolin HFA] 90 mcg/actuation HFA aerosol inhaler 2 puff PO Q8H PRN (Reason: shortness of breath or wheezing) Qty: 18 3RF insulin glargine [Lantus U-100 Insulin] 100 unit/mL Solution 14 unit SUBCUT DAILY (DME) FreeStyle Lite Strips Strip MISCELLANEOUS TID bumetanide 1 mg tablet 1 mg PO Q48H (DME) lancets 30 gauge misc See Rx Instructions .ROUTE .MEDSUPPLY Qty: 100 Rx Instructions: As directed folic acid 1 mg tablet 1 mg PO DAILY verapamil 300 mg capsule, [address] 300 mg PO BEDTIME magnesium oxide 400 mg (241.3 mg magnesium) tablet 400 mg PO BEDTIME aspirin 81 mg tablet,delayed release (DR/EC) 81 mg PO DAILY prednisone 5 mg tablet 5 mg PO DAILY Hold Instructions: Resume on 10/02/22. (DME) inhalat.spacing dev,large mask Spacer See Rx Instructions .ROUTE .MEDSUPPLY Qty: 1 Rx Instructions: As directed (DME) blood sugar diagnostic Strip See Rx Instructions Not Applicable .MEDSUPPLY Qty: 10 Rx Instructions: As directed omeprazole 20 mg capsule,delayed release(DR/EC) 20 mg PO DAILY@0630 chlorthalidone 25 mg tablet 25 mg PO DAILY Referrals: Teofilo Moreno III, MD [Primary Care Provider] - Print Language: Peruvian
[2023-05-25] MEDS: Albuterol Sulfate 2.5 MG, Albuterol/Iprat 2.5/0.5MG 3 ML 3 ML INHALE (15:14)
[2023-05-25 15:15] VITALS: PULSE 63; RESP 24; O2SAT 94
[2023-05-25 15:34] LABS: IDNOW Serial# 08D9AD1C; Influenza A Negative (Negative); Influenza B2 Negative (Negative)
[2023-05-25 15:37] LABS: COVID-19 Test Negative (Negative); IDNOW Serial# 6674DD1D
[2023-05-25] MEDS: predniSONE 10 MG TABLET 50 MG PO (15:37)
== END 2023-05-25 16:32 | disposition home or self-care (01) ==
PROVIDERS: Emergency Provider Student in an Organized Health Care Education/Training Program; PCP Internal Medicine
DX: B34.9 Viral infection, unspecified (principal); J44.9 Chronic obstructive pulmonary disease, unspecified; Z11.52 Encounter for screening for COVID-19; Z79.899 Other long term (current) drug therapy; Z87.891 Personal history of nicotine dependence
CPT/HCPCS: 71045; 87502; 87635; 93005; 94640; 99284

== ENCOUNTER 2023-08-07 12:59 | Outpatient (AMB) | payer OTHER, SELFPAY ==
--- NOTE | 2023-08-07 13:18 | MHC.OFFVIS ---
Intake Vital Signs 08/07/23 13:19 Height 4 ft 11 in Weight 146 lb BMI 29.5 BP 140/64 H Blood Pressure Location Lt brachial Position Sitting Pulse 51 Pulse Source Pulse Oximeter Pulse Oximetry (%) 96 Oxygen Delivery Method Room Air Intake Visit Reasons: copd Intake Note: pt is here for follow up and had ER visit in April, for cough, today she states she has a cough but cannot get phlegm out. Optical Design Engineer Required: No Allergies latex [LATEX] Allergy (Unknown, Verified 08/07/23 13:34) RASH pineapple [PINEAPPLE] Allergy (Unknown, Verified 08/07/23 13:34) HIVES enalaprilat [From Vasotec] Adverse Reaction (Mild, Verified 08/07/23 13:34) Unknown Medication List - Last Reconciled 08/07/23 by Clifton Reese MD albuterol sulfate 2.5 mg (3 mL) inhalation Q4-6H PRN albuterol sulfate 90 mcg/actuation (Ventolin HFA) 2 puffs PO Q8H PRN aspirin 81 mg PO DAILY blood sugar diagnostic (FreeStyle Lite Strips) blood sugar diagnostic As directed bumetanide 1 mg PO Q48H chlorthalidone 25 mg PO DAILY folic acid 1 mg PO DAILY inhalat.spacing dev,large mask As directed insulin glargine (Lantus U-100 Insulin) 14 units subcut DAILY insulin glargine (Lantus Solostar U-100 Insulin) units subcut lancets As directed magnesium oxide 400 mg PO BEDTIME omeprazole 20 mg PO DAILY@0630 prednisone 5 mg PO DAILY verapamil ER 300 mg PO BEDTIME Do you need a note to return to daycare/school/sports/work: No HPI copd HPI Details 83 years old very pleasant female is here for her 6 months follow-up. She does have chronic obstructive pulmonary disease, which remains controlled and stable with the use of prednisone 5 mg a day, which is actually for her chronic rheumatoid arthritis. She uses albuterol HFA 2 puffs Q 4-6 hours p.r.n., on some days she takes it to 3 or 4 times a day because of cough. She has had no recent respiratory infection. Complains of increased cough and mostly feeling of dryness. She is on able to expect rate any phlegm. [facility] Medical History (Updated 08/07/23 @ 13:40 by Clifton Reese MD) Cough COPD (chronic obstructive pulmonary disease) Bacteremia due to Streptococcus pneumoniae Benign paroxysmal positional vertigo Hypoxia Arthritis Restrictive lung disease Surgical History Hx of cholecystectomy Family History Mother Diabetes Maternal Grandmother Diabetes Social History Household Members: Family Housing: House Are you a primary nurse care manager to a significant other at home: No Do you presently have visiting nurse or other home services: Yes (fur liner comes to clean house) Alcohol intake: former Patient Tobacco Use Status: Never used Tobacco Cigarette Packs Per Day: 1 service: No Current occupational status: unemployed Review of Systems Const All systems reviewed & are unremarkable except as noted in HPI and below Eyes Reports no additional complaints ENT Reports no additional complaints Card Denies chest pain, Denies irregular heart rhythm and Denies leg edema Resp Reports as per HPI GI Reports no additional complaints Reports no additional complaints Musc Reports abnormal gait (Slow and uses cane), Reports back pain, Reports deformity and Reports muscle weakness (General muscular weakness) Skin/Breast Reports system reviewed and no additional complaints, except as documented Neuro Reports no additional complaints and Reports abnormal gait (Slow and uses cane) Psych Reports no additional complaints Physical Exam Vital Signs: Last Vital Signs Pulse 51 08/07/23 13:19 BP 140/64 H 08/07/23 13:19 Pulse Ox 96 08/07/23 13:19 Oxygen Delivery Method Room Air 08/07/23 13:19 BMI result Body Mass Index 29.5 Const General: comfortable, no acute distress, alert and awake Orientation/consciousness: patient oriented x3 HEENT Head: Yes normal to inspection General nose exam: No nasal polyps present and No nasal discharge present Face and sinus: Yes sinuses nontender Mouth: oropharynx normal Throat: Yes posterior oropharynx normal Eyes General: appearance normal, both eyes and all related structures Neck Neck: Yes normal visual inspection, Yes no lymphadenopathy, Yes trachea midline and Yes no JVD Thyroid: Thyroid normal Chest Chest palpation & inspection: normal inspection of the chest, normal palpation of entire chest wall and no tenderness Resp Other: Percussion note resonant, breath sounds are distant with prolonged expiratory phase. No wheezes or rhonchi or crepitations are heard . Cardio Palpation: normal PMI Rate: regular rate Rhythm: regular rhythm Heart sounds: no gallops and no murmurs GI Palpation (GI): Soft to palpation, nontender, No hepatosplenomegaly present and no masses Auscultation: normal bowel sounds Back/Spine/Pelvis Thoracic/Lumbar Spine: thoracic and lumbar spine normal to inspection and thoraco-lumbar ROM limited Skin General skin exam: no rashes or lesions noted Neuro General: patient oriented x3, No gait normal (Slow and needs the cane for support) and no focal motor deficits Cranial nerves: Yes CN's II-XII intact bilaterally Extrem General: Yes normal to inspection, Yes no clubbing, cyanosis or edema and Yes no calf tenderness Psych Appearance: grossly normal and well kempt Speech and movement: Normal speech and movement present Assessment & Plan Assessment & Plan (1) Restrictive lung disease: Comment: She has moderate restrictive pulmonary disorder which is probably due to obesity. The only treatment she needs is to keep the weight under control and Frequent deep breathing exercises. Code(s): J98.4 - Other disorders of lung Plan: as above (2) COPD (chronic obstructive pulmonary disease): Comment: She does have COPD ,, but holding very stable , with minimal meds . Code(s): J44.9 - Chronic obstructive pulmonary disease, unspecified Plan: Advised to continue using Albuterol in Nebulizer q 6 hrs PRN for outdoors , may use Proair 2 puffs q 4-6 Hrs PRN . Advised to avoid excessive use . She takes prednisone 5 mg a day for her chronic rheumatoid arthritis, which keeps her COPD under control or. (3) Cough: Comment: Complains of dry cough which is probably due to dryness of the air in the house. Code(s): R05.9 - Cough, unspecified Plan: Advised to start using the vaporizer in the bedroom. Also prescribed Mucinex 600 mg b.i.d. for cough. Medications: New guaifenesin ER (Mucinex) 600 mg PO BID 60 tabs 3RF cough 30 days Coding Level of Care Code Est Pt Level 3 (67448) Diagnoses Restrictive lung disease J98.4 COPD (chronic obstructive pulmonary disease) J44.9 Cough R05.9
[2023-08-07 13:19] VITALS: BP 140/64; PULSE 51; O2SAT 96; BMI 29.5
== END 2023-08-07 13:35 | disposition home or self-care (01) ==
PROVIDERS: PCP Internal Medicine; Visit Provider Internal Medicine
DX: J98.4 Other disorders of lung (principal); J44.9 Chronic obstructive pulmonary disease, unspecified; R05.9 Cough, unspecified
CPT/HCPCS: 99213

== ENCOUNTER → 2023-08-07 12:59 | Outpatient (BNVA) | payer OTHER, SELFPAY | PROVIDERS: PCP Internal Medicine; Visit Provider Internal Medicine | DX: J98.4 Other disorders of lung (principal); J44.9 Chronic obstructive pulmonary disease, unspecified; R05.9 Cough, unspecified | CPT/HCPCS: 99212 ==

== ENCOUNTER 2024-01-21 15:49 | Emergency (ER) | payer OTHER, SELFPAY ==
[2024-01-21 15:59] VITALS: BP 190/56; BP 198/76; PULSE 55; PULSE 61; RESP 17; TEMP 36.7; O2SAT 95; O2SAT 96; BMI 32.3
[2024-01-21 16:09] VITALS: BP 190/56; PULSE 55; RESP 17; TEMP 36.7; O2SAT 95
--- NOTE | 2024-01-21 16:43 | ED.GENADULT ---
HPI - General Adult General Chief complaint: General Medical Stated complaint: HTN *198/72 Time Seen by Provider: 01/21/24 16:30 Source: patient and family Mode of arrival: ambulatory Limitations: no limitations History of Present Illness ED Provider: tyler ESCOBAR narrative: Patient's history of hypertension On losartan 25 mg daily, verapamil hydralazine 10 mg 3 times a day blood pressure been on the higher side all the time,today visiting nurse came to check the blood pressure elevated 181/73 patient asymptomatic no chest pain no palpitation no shortness a breath no headache patient otherwise feels normal patient always have blood pressure on the higher side but never been that high according to patient's daughter patient doctor has stopped her taking losartan , for at least a month Related Data Home Medications ?Medication ?Instructions ?Recorded ?Confirmed aspirin 81 mg tablet,delayed 81 mg PO DAILY 06/15/20 08/07/23 release blood sugar diagnostic #10 ea 06/15/20 08/07/23 folic acid 1 mg tablet 1 mg PO DAILY 06/15/20 08/07/23 inhalat.spacing dev,large mask #1 ea 06/15/20 08/07/23 lancets 30 gauge #100 ea 06/15/20 08/07/23 magnesium oxide 400 mg (241.3 mg 400 mg PO BEDTIME 06/15/20 08/07/23 magnesium) tablet omeprazole 20 mg capsule,delayed 20 mg PO DAILY@0630 06/15/20 08/07/23 release prednisone 5 mg tablet 10 mg PO DAILY 06/15/20 08/09/23 verapamil 300 mg capsule 24hr 300 mg PO BEDTIME 06/15/20 08/07/[address],ext.release bumetanide 1 mg tablet 1 mg PO Q48H 09/12/22 08/07/23 blood sugar diagnostic (FreeStyle 02/08/23 08/07/23 Lite Strips) insulin glargine 100 unit/mL 18 unit subcut DAILY 02/08/23 08/09/23 subcutaneous solution (Lantus U-100 Insulin) insulin glargine 100 unit/mL (3 unit subcut 3XD 08/07/23 08/07/23 mL) subcutaneous pen (Lantus Solostar U-100 Insulin) Previous Rx's ?Medication ?Instructions ?Recorded albuterol sulfate 2.5 mg/3 mL 2.5 mg (3 mL) inhalation Q4-6H PRN 05/21/23 (0.083 %) solution for nebulization for wheezing #75 mL albuterol sulfate 90 mcg/actuation 2 puff PO Q8H PRN shortness of 05/21/23 aerosol inhaler (Ventolin HFA) breath or wheezing #18 ea guaifenesin 600 mg tablet, 600 mg PO BID cough 30 days #60 08/07/23 extended release 12 hr (Mucinex) tabs losartan 50 mg tablet 50 mg PO DAILY #30 tabs 01/21/24 Allergies Allergy/AdvReac Type Severity Reaction Status Date / Time latex [LATEX] Allergy Unknown RASH Verified 01/21/24 16:08 pineapple [PINEAPPLE] Allergy Unknown HIVES Verified 01/21/24 16:08 enalaprilat [From Vasotec] AdvReac Mild Unknown Verified 01/21/24 16:08 Review of Systems Review of Systems: Yes all other systems are reviewed and are negative PMFSH Past Medical History Medical History Cough COPD (chronic obstructive pulmonary disease) Bacteremia due to Streptococcus pneumoniae Benign paroxysmal positional vertigo Hypoxia Arthritis Restrictive lung disease Surgical History Hx of cholecystectomy Family History Family History Mother Diabetes Maternal Grandmother Diabetes Social History Social History Household Members: Family Housing: House Are you a primary career placement services counselor to a significant other at home: No Do you presently have visiting nurse or other home services: Yes (cash analyst comes to clean house) Alcohol intake: former Patient Tobacco Use Status: Never used Tobacco Cigarette Packs Per Day: 1 Smoked in Last 30 Days: No Advance Directives: No Advance Directives Information Provided: No service: No Current occupational status: unemployed Physical Exam ED Vital Signs: Vital Signs - 24 hr 01/21/24 15:59 01/21/24 16:09 01/21/24 17:18 Temperature 98.1 F 98.1 F Pulse Rate 61 55 Respiratory Rate 17 17 Blood Pressure 190/56 H 190/56 H 166/58 H Pulse Oximetry 96 95 Oxygen Delivery Method Room Air Room Air 01/21/24 17:42 01/21/24 18:09 Temperature 98.1 F Pulse Rate 52 52 Respiratory Rate 18 18 Blood Pressure 156/65 H 156/65 H Pulse Oximetry 99 99 Oxygen Delivery Method Room Air Room Air BMI result Body Mass Index 32.3 Appearance: Alert. Oriented X3. No acute distress. Eyes: PERRLA, No Nystagmus ENT: Pharynx normal. Oral Mucosa moist Neck: Normal inspection. Neck supple. CVS: Normal heart rate and rhythm. Pulses normal. Respiratory: No respiratory distress. Equal air entry bilateral, no wheezing/rales/rhonchi Abdomen: Soft and nontender. Bowel sounds are present, no mass palpable, no CVA tenderness Skin: Skin warm and dry. Normal skin color. Normal skin turgor. Extremities: No lower extremity edema. No calf tenderness Neuro: Oriented X 3. No motor deficit. No sensory deficit.No cerebellar signs , cranial nerves II-XII intact Medications Administered Discontinued Medications Generic Name Dose Route Start Last Admin Trade Name Freq PRN Reason Stop Dose Admin Losartan Potassium 50 mg 01/21/24 17:00 01/21/24 17:18 Losartan Potassium 50 Mg Tablet PO 01/21/24 17:01 50 mg ONCE ONE Administration Protocol Medical Decision Making Medical Decision Making [facility] Narrative: Patient with accelerated hypertension patient is fairly compliant to medication will add losartan to 50 mg daily no signs of end-organ damage patient had labs done 3 days ago at doctor's office and will be following as outpatient Differential Diagnosis Differential Diagnoses: The differential diagnosis associated with the presentation includes Accelerated hypertension/hypertension emergency Discharge Plan Discharge Clinical Impression: Hypertension Patient Disposition: Home, Self-Care Instructions: Chronic Hypertension (ED) Additional Instructions: Decreased salt intake Start taking losartan 50 mg daily Check blood pressure twice daily should be less than 140/80 Follow with your PCP Prescriptions: New losartan 50 mg tablet 50 mg PO DAILY Qty: 30 0RF No Action albuterol sulfate 2.5 mg /3 mL (0.083 %) solution for nebulization 2.5 mg inhalation Q4-6H PRN (Reason: for wheezing) Qty: 75 3RF albuterol sulfate [Ventolin HFA] 90 mcg/actuation HFA aerosol inhaler 2 puff PO Q8H PRN (Reason: shortness of breath or wheezing) Qty: 18 3RF insulin glargine [Lantus U-100 Insulin] 100 unit/mL Solution 18 unit SUBCUT DAILY (DME) FreeStyle Lite Strips Strip MISCELLANEOUS TID bumetanide 1 mg tablet 1 mg PO Q48H (DME) lancets 30 gauge misc See Rx Instructions .ROUTE .MEDSUPPLY Qty: 100 Rx Instructions: As directed folic acid 1 mg tablet 1 mg PO DAILY verapamil 300 mg capsule, [address] 300 mg PO BEDTIME magnesium oxide 400 mg (241.3 mg magnesium) tablet 400 mg PO BEDTIME aspirin 81 mg tablet,delayed release (DR/EC) 81 mg PO DAILY prednisone 5 mg tablet 10 mg PO DAILY Hold Instructions: Resume on 10/02/22. (DME) inhalat.spacing dev,large mask Spacer See Rx Instructions .ROUTE .MEDSUPPLY Qty: 1 Rx Instructions: As directed (DME) blood sugar diagnostic Strip See Rx Instructions Not Applicable .MEDSUPPLY Qty: 10 Rx Instructions: As directed omeprazole 20 mg capsule,delayed release(DR/EC) 20 mg PO DAILY@0630 insulin glargine [Lantus Solostar U-100 Insulin] 100 unit/mL (3 mL) insulin pen subcut 3XD guaifenesin [Mucinex] 600 mg tablet extended release 12hr 600 mg PO BID 30 Days Qty: 60 3RF Interventions: ED Discharge Assessment Last Done: 01/21/24 18:09 Discharge Date/Time: 01/21/24 18:15 Print Language: Slovak
[2024-01-21 17:18] VITALS: BP 166/58
[2024-01-21] MEDS: Losartan Potassium 50 MG TABLET PO (17:18)
[2024-01-21 17:42] VITALS: BP 156/65; PULSE 52; RESP 18; O2SAT 99
[2024-01-21 18:09] VITALS: BP 156/65; PULSE 52; RESP 18; TEMP 36.7; O2SAT 99
== END 2024-01-21 18:15 | disposition home or self-care (01) ==
PROVIDERS: Emergency Provider Internal Medicine; PCP Internal Medicine
DX: I10 Essential (primary) hypertension (principal); Z79.899 Other long term (current) drug therapy
CPT/HCPCS: 99283; 99284

== ENCOUNTER 2024-02-05 13:16 | Outpatient (AMB) | payer OTHER, SELFPAY ==
[2024-02-05 13:26] VITALS: BP 138/52; PULSE 55; O2SAT 96; BMI 32.2
--- NOTE | 2024-02-05 13:26 | A.OFFVIS_ITS ---
Vital Signs 02/05/24 13:26 Height 4 ft 10 in Weight 154 lb BMI 32.2 BP 138/52 L Blood Pressure Location Lt brachial Position Sitting Pulse 55 Pulse Source Pulse Oximeter Pulse Oximetry (%) 96 Oxygen Delivery Method Room Air Intake Visit Reasons: copd Intake Note: pt is here for follow up and feels good. 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: No Allergies latex [LATEX] Allergy (Unknown, Verified 02/05/24 13:40) RASH pineapple [PINEAPPLE] Allergy (Unknown, Verified 02/05/24 13:40) HIVES enalaprilat [From Vasotec] Adverse Reaction (Mild, Verified 02/05/24 13:40) Unknown Medication List - Last Reconciled 02/05/24 by Clifton Reese MD albuterol sulfate 2.5 mg (3 mL) inhalation Q4-6H PRN albuterol sulfate 90 mcg/actuation (Ventolin HFA) 2 puffs PO Q8H PRN aspirin 81 mg PO DAILY blood sugar diagnostic (FreeStyle Lite Strips) blood sugar diagnostic As directed bumetanide 1 mg PO Q48H folic acid 1 mg PO DAILY guaifenesin ER (Mucinex) 600 mg PO BID 30 days inhalat.spacing dev,large mask As directed insulin glargine (Lantus U-100 Insulin) 18 units subcut DAILY insulin glargine (Lantus Solostar U-100 Insulin) units subcut 3XD lancets As directed losartan 50 mg PO DAILY magnesium oxide 400 mg PO BEDTIME omeprazole 20 mg PO DAILY@0630 prednisone 10 mg PO DAILY verapamil ER 300 mg PO BEDTIME Do you need a note to return to daycare/school/sports/work: No HPI HPI copd: Details: THIS 83 YEARS OLD VERY PLEASANT FEMALE, COMES AFTER 6 MONTHS FOR FOLLOW-UP. SHE HAS A MILD CASE OF BRONCHIAL ASTHMA/COPD, BUT IT HAS NOT FLARED UP AT ALL. SHE HAS INTERMITTENT COUGH FOR WHICH SOMETIME SHE HAS TO USE THE ALBUTEROL WITH NEBULIZER OR THE VENTOLIN. SHE IS ON PREDNISONE 10 MG A DAY THESE DAYS BECAUSE OF FLARE UP OF RHEUMATOID ARTHRITIS. THAT HELPS TO KEEP HER LUNGS CLEAR, BUT SHE DOES HAVE PUFFINESS OF THE CHEEKS PROBABLY DUE TO PREDNISONE. FOR[facility]LY [facility], LATER [facility] Medical History Cough COPD (chronic obstructive pulmonary disease) Bacteremia due to Streptococcus pneumoniae Benign paroxysmal positional vertigo Hypoxia Arthritis Restrictive lung disease Surgical History Hx of cholecystectomy Family History Mother Diabetes Maternal Grandmother Diabetes Social History Household Members: Family Housing: House Are you a primary direct care counselor to a significant other at home: No Do you presently have visiting nurse or other home services: Yes (supervisor slashing department comes to clean house) Alcohol intake: former Patient Tobacco Use Status: Never used Tobacco Cigarette Packs Per Day: 1 service: No Current occupational status: unemployed Review of Systems Const All systems reviewed & are unremarkable except as noted in HPI and below Eyes Reports no additional complaints ENT Reports no additional complaints Card Denies chest pain, Denies irregular heart rhythm and Denies leg edema Resp Reports as per HPI GI Reports no additional complaints Reports no additional complaints Musc Reports abnormal gait (Slow and uses cane), Reports back pain, Reports deformity and Reports muscle weakness (General muscular weakness) Skin/Breast Reports system reviewed and no additional complaints, except as documented Neuro Reports no additional complaints and Reports abnormal gait (Slow and uses cane) Psych Reports no additional complaints Physical Exam Vital Signs: Last Vital Signs Pulse 55 02/05/24 13:26 BP 138/52 L 02/05/24 13:26 Pulse Ox 96 02/05/24 13:26 Oxygen Delivery Method Room Air 02/05/24 13:26 BMI result Body Mass Index 32.2 Const General: comfortable, no acute distress, alert and awake Orientation/consciousness: patient oriented x3 HEENT Head: Yes normal to inspection General nose exam: No nasal polyps present and No nasal discharge present Face and sinus: Yes sinuses nontender Mouth: oropharynx normal Throat: Yes posterior oropharynx normal Eyes General: appearance normal, both eyes and all related structures Neck Neck: Yes normal visual inspection, Yes no lymphadenopathy, Yes trachea midline and Yes no JVD Thyroid: Thyroid normal Chest Chest palpation & inspection: normal inspection of the chest, normal palpation of entire chest wall and no tenderness Resp Other: Percussion note resonant, breath sounds are distant with prolonged expiratory phase. No wheezes or rhonchi or crepitations are heard . Cardio Palpation: normal PMI Rate: regular rate Rhythm: regular rhythm Heart sounds: no gallops and no murmurs GI Palpation (GI): Soft to palpation, nontender, No hepatosplenomegaly present and no masses Auscultation: normal bowel sounds Back/Spine/Pelvis Thoracic/Lumbar Spine: thoracic and lumbar spine normal to inspection and tho raco-lumbar ROM limited Skin General skin exam: no rashes or lesions noted Neuro General: patient oriented x3, No gait normal (Slow and needs the cane for support) and no focal motor deficits Cranial nerves: Yes CN's II-XII intact bilaterally Extrem General: Yes normal to inspection, Yes no clubbing, cyanosis or edema and Yes no calf tenderness Psych Appearance: grossly normal and well kempt Speech and movement: Normal speech and movement present Assessment & Plan Assessment & Plan (1) Restrictive lung disease: Comment: She has moderate restrictive pulmonary disorder which is probably due to obesity. The only treatment she needs is to keep the weight under control and Frequent deep breathing exercises. Code(s): J98.4 - Other disorders of lung Category: Medical Plan: AGAIN ADVISED TO DO DEEP BREATHING EXERCISES 2 OR 3 TIMES A DAY. IT IS DIFFICULT FOR HER TO LOSE WEIGHT BECAUSE SHE IS ON PREDNISONE. (2) COPD (chronic obstructive pulmonary disease): Comment: She does have COPD , which is mild, and under control. Code(s): J44.9 - Chronic obstructive pulmonary disease, unspecified Category: Medical Plan: Albuterol solution in the nebulizer or albuterol HFA Q 6 hours p.r.n. if any bouts of cough or wheezing (3) Cough: Comment: Complains of dry cough which is probably due to dryness of the air in the house. Code(s): R05.9 - Cough, unspecified Category: Medical Plan: May use OTC cough medicine as needed. For persistent bouts of cough she can use albuterol p.r.n.. Coding Level of Care Code Est Pt Level 3 (00427) Diagnoses Restrictive lung disease J98.4 COPD (chronic obstructive pulmonary disease) J44.9 Cough R05.9
== END 2024-02-05 13:41 | disposition home or self-care (01) ==
PROVIDERS: PCP Internal Medicine; Visit Provider Internal Medicine
DX: J98.4 Other disorders of lung (principal); J44.9 Chronic obstructive pulmonary disease, unspecified; R05.9 Cough, unspecified
CPT/HCPCS: 99213

== ENCOUNTER → 2024-02-05 13:16 | Outpatient (BNVA) | payer OTHER, SELFPAY | PROVIDERS: PCP Internal Medicine; Visit Provider Internal Medicine | DX: J98.4 Other disorders of lung (principal); J44.9 Chronic obstructive pulmonary disease, unspecified; R05.9 Cough, unspecified | CPT/HCPCS: 99212 ==

== ENCOUNTER 2024-06-06 11:35 | Inpatient (IN) | payer OTHER, SELFPAY ==
[2024-06-06] VITALS (13 sets, daily range): BP systolic 115–169; BP diastolic 40–69; PULSE 59–103; RESP 16–28; TEMP 36.4–36.9; O2SAT 69–99; BMI 31.3
--- NOTE | ~2024-06-06 | XR_ITS ---
EXAMINATION: XR CHEST CLINICAL INFORMATION: Shortness of breath COMPARISON: Chest radiograph dated 05/17/2023 TECHNIQUE: 2 views of the chest were obtained. FINDINGS: Streaky opacity in the retrocardiac region in the right lung base. No pulmonary edema, pleural effusion, or pneumothorax. Enlarged cardiac silhouette. Atheromatous aortic knob. No acute osseous abnormality. XR/XR chest 2V IMPRESSION: Streaky opacity in the retrocardiac region and right lung base, which may represent atelectasis or infectious/inflammatory process. Electronically signed by: Denise Brantley MD 06/06/2024 01:45 PM [facility] [place]
--- NOTE | 2024-06-06 11:38 | ED_ITS ---
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 Douglas HPI Narrative: 83-year-old female history asthma /COPD using albuterol at home increased use of albuterol at home with out improvement of her shortness of breath, patient also been having exertional dyspnea that is worsening with any exertion home, no PND or nocturnal dyspnea, patient been having chronic bilateral lower extremities edema take water pill for it, patient been having a productive cough for the last few days, no fever, no chills. Related Data Home Medications ?Medication ?Instructions ?Recorded ?Confirmed aspirin 81 mg tablet,delayed 81 mg PO DAILY 06/15/20 02/05/24 release blood sugar diagnostic #10 ea 06/15/20 02/05/24 folic acid 1 mg tablet 1 mg PO DAILY 06/15/20 02/05/24 inhalat.spacing dev,large mask #1 ea 06/15/20 02/05/24 lancets 30 gauge #100 ea 06/15/20 02/05/24 magnesium oxide 400 mg (241.3 mg 400 mg PO BEDTIME 06/15/20 02/05/24 magnesium) tablet omeprazole 20 mg capsule,delayed 20 mg PO DAILY@0630 06/15/20 02/05/24 release prednisone 5 mg tablet 10 mg PO DAILY 06/15/20 02/05/24 verapamil 300 mg capsule 24hr 300 mg PO BEDTIME 06/15/20 02/05/[address],ext.release bumetanide 1 mg tablet 1 mg PO Q48H 09/12/22 02/05/24 blood sugar diagnostic (FreeStyle 02/08/23 02/05/24 Lite Strips) insulin glargine 100 unit/mL 18 unit subcut DAILY 02/08/23 02/05/24 subcutaneous solution (Lantus U-100 Insulin) insulin glargine 100 unit/mL (3 unit subcut 3XD 08/07/23 02/05/24 mL) subcutaneous pen (Lantus Solostar U-100 Insulin) Previous Rx's ?Medication ?Instructions ?Recorded guaifenesin 600 mg tablet, 600 mg PO BID cough 30 days #60 08/07/23 extended release 12 hr (Mucinex) tabs losartan 50 mg tablet 50 mg PO DAILY #30 tabs 01/21/24 albuterol sulfate 2.5 mg/3 mL 2.5 mg (3 mL) inhalation Q4-6H PRN 02/17/24 (0.083 %) solution for nebulization for wheezing #75 mL albuterol sulfate 90 mcg/actuation 2 puff PO Q8H PRN shortness of 02/17/24 aerosol inhaler (Ventolin HFA) breath or wheezing #18 ea Allergies Allergy/AdvReac Type Severity Reaction Status Date / Time latex [LATEX] Allergy Unknown RASH Verified 06/06/24 11:41 pineapple [PINEAPPLE] Allergy Unknown HIVES Verified 06/06/24 11:41 enalaprilat [From Vasotec] AdvReac Mild Unknown Verified 06/06/24 11:41 Review of Systems 2 Review of Systems: all other systems are reviewed and are negative Constitutional: Reports as per HPI and Reports no additional constitutional complaints Eyes: Reports as per HPI and Reports no additional eye complaints Reports system reviewed and no additional complaints, except as documented Cardiovascular: Reports as per HPI and Reports no additional cardiovascular complaints Respiratory: Reports as per HPI and Reports no additional respiratory complaints Gastrointestinal: Reports as per HPI and Reports no additional gastrointestinal complaints Genitourinary: Reports no additional female genitourinary complaints Musculoskeletal: Reports no additional musculoskeletal complaints Skin/Breast: Reports system reviewed and no additional complaints, except as docu Psychiatric: Reports no additional psychiatric complaints Endocrine: Reports no additional endocrine complaints Hematologic/Lymphatic: Reports no additional hematologic/lymphatic complaints Allergic/Immunologic: Reports no additional allergic/immunologic complaints Reports system reviewed and no additional complaints, except as documented and Reports Abnormal speech present [facility] Past Medical History Medical History Cough COPD (chronic obstructive pulmonary disease) Bacteremia due to Streptococcus pneumoniae Benign paroxysmal positional vertigo Hypoxia Arthritis Restrictive lung disease Surgical History Hx of cholecystectomy Family History Family History Mother Diabetes Maternal Grandmother Diabetes Social History Social History Household Members: Family Housing: House Are you a primary healthcare consulting manager to a significant other at home: No Do you presently have visiting nurse or other home services: Yes (gi technician comes to clean house) Alcohol intake: former Patient Tobacco Use Status: Never used Tobacco Cigarette Packs Per Day: 1 Advance Directives: No Advance Directives Information Provided: No service: No Current occupational status: unemployed Physical Exam 2 Vital Signs: Vital Signs: Last Vital Signs Temp 97.7 F 06/06/24 11:38 Pulse 83 06/06/24 13:13 Resp 26 H 06/06/24 13:13 BP 169/47 H 06/06/24 11:38 Pulse Ox 96 06/06/24 11:38 O2 Del Method Room Air 06/06/24 11:38 BMI result Body Mass Index 31.3 Vital signs have been reviewed and appear to be correct. Blood pressure elevated. Heart rate normal. Respiratory rate normal. Temperature normal. Oxygen saturation normal. Appearance: Alert. Oriented X3. No acute distress. Head: Normal external exam. Normocephalic. Atraumatic. No Foreman signs noted. No raccoon eyes noted Eyes: PERRLA. EOMI. Conjunctiva and sclera normal. Eyelids normal. ENT: TM's Normal. Pharynx normal. Uvula midline. Moist mucous membranes. No trismus noted. No drooling noted. No muffled voice noted. Neck: Normal inspection. Neck supple. FROM. No adenopathy. Thyroid Normal. No meningeal signs. No neck mass noted. CVS: Normal heart rate and rhythm. Heart sound normal. No murmurs noted. Pulses normal throughout. Respiratory: No respiratory distress. Painless inspiration. diminished breathing sounds bilaterally, expiratory wheezing with prolonged expiration. Chest nontender. No accessory muscle usage noted or decreased air movement noted. Abdomen: Soft and nontender. Bowel sounds normal in all 4 quadrants. No distention noted. No organomegaly noted. No visible injury noted. Rectal exam: No hemorrhoid, brown stool guaiac negative. Back: No CVA tenderness. Full range of motion noted. Skin: Skin warm and dry. Normal skin color. Normal skin turgor. No rashes/lesions/lacerations noted. Extremities: No lower extremity edema. Extremities exhibit normal range of motion. Extremities nontender. Neuro: Oriented X 3. Cranial nerve exam: II-XII are grossly intact No motor deficit. No sensory deficit. Reflexes normal. Course Course Course Narrative: This is an RME performed by You Middleton CNP: Additional HPI, ROS, PE not included below will be deferred to primary provider. Patient is an 83-year-old female presents emergency department for evaluation of increasing shortness of breath difficulty breathing, pain to the left posterior upper back with cough. Cough is nonproductive. Onset of symptoms was 3 days ago. Has been using her albuterol inhaler hourly with minimal improvement. Denies fevers or chills. No known sick contacts. Lung sounds are quite diminished upon auscultation posteriorly, has a audible upper airway expiratory wheeze, no stridor, no retractions, no tripoding, speech is clear. 2+ pitting edema to the left lower extremity which per patient and daughter is chronic not new Plan: Serum labs, CXR, viral serologies, EKG Reevaluation(s) Reevaluation #1: exertional dyspnea. 1. Severe anemia unknown source of bleeding 1 unit of RBCs transfusion. 2. Bronchodilator to help with COPD / asthma wheezing. 3. Oxycodone for questionable pneumonia on the x-ray. Time: 14:29 Medications Administered Discontinued Medications Generic Name Dose Route Start Last Admin Trade Name Freq PRN Reason Stop Dose Admin Albuterol Sulfate 2.5 mg/ 5 mg 06/06/24 13:13 06/06/24 13:18 Albuterol Sulfate 2.5 mg INHALE 06/06/24 13:14 5 mg ONCE ONE Administration Albuterol Sulfate 2.5 mg/ 0 mg 06/06/24 12:45 06/06/24 12:51 Albuterol/Ipratropium 3 ml INHALE 06/06/24 12:46 5 dose ONCE ONE Administration Doxycycline Hyclate 100 mg/ 250 mls @ 166.67 mls/hr 06/06/24 12:38 06/06/24 13:31 Sodium Chloride IV 06/06/24 14:07 166.67 mls/hr ONCE ONE Administration Methylprednisolone Sodium Succinate 125 mg 06/06/24 12:34 06/06/24 13:31 Methylprednisolone Sod Succ 125 Mg/2 Ml Vial IVPUSH 06/06/24 12:35 125 mg ONCE ONE Administration Medical Decision Making Differential Diagnosis Differential Diagnoses: The differential diagnosis associated with the presentation includes ( Pneumonia, pneumothorax, asthma exacerbation, viral upper infection, severe anemia, CHF, electrolyte derangement.) Admission/Observation Consideration of admission/observation: Escalation of care including admission/observation considered Consult Healthcare Provider Management of the patient was discussed with: Hospitalist (Dr. Méndez) Lab Data MDM Lab Attestation statement: I reviewed the patient's lab results. 06/06/24 13:07 06/06/24 13:07 Labs: Lab Results 06/06/24 06/06/24 Range/Units 13:07 14:09 WBC 16.3 H (4.8-10.8) X10*3/uL RBC 2.77 L D (4.20-5.50) X10*6/uL Hgb 6.3 L* D (12.0-16.0) g/dl Hct 21.1 L D (37.0-47.0) % MCV 76.2 L (80.0-98.0) fL MCH 22.7 L (27.0-33.0) pg MCHC 29.9 L (31.0-35.0) g/dl RDW 16.2 H (11.0-16.0) % Plt Count 302 (160-400) X10*3/uL MPV 10.3 (9.4-12.3) fL Immature Gran % (Auto) 0.4 (0.0-0.4) % Neut % (Auto) 55.2 (45-73) % Lymph % (Auto) 33.8 (20-40) % Fisher % (Auto) 7.1 (2-11) % Eos % (Auto) 3.0 (0-4) % Baso % (Auto) 0.5 (0-2) % Lymph # (Auto) 5.5 H (1.2-4.9) X10*3/uL Fisher # (Auto) 1.2 (0.1-1.2) X10*3/uL Eos # (Auto) 0.5 H (0.0-0.4) X10*3/uL Baso # (Auto) 0.1 (0.0-0.2) X10*3/uL Abs Immat Gran (auto) 0.07 H (0.00-0.03) X10*3/uL Absolute Neuts (auto) 9.0 H (2.0-8.3) x10*3/uL Absolute Nucleated RBC 0.000 (0.0-0.012) X10*3/uL Nucleated RBC % (auto) 0.0 (0.0-0.2) /100WBC Smear Tech's Comments VERIFIED PT 11.1 (10.9-12.4) SEC INR 1.0 (0.9-1.1) Sodium 147 H (135-145) mmol/L Potassium 4.4 (3.3-5.1) mmol/L Chloride 110 H (96-108) mmol/L Carbon Dioxide 25 (22-29) mmol/L Anion Gap 16 (12-20) BUN 27 H (9-16) mg/dL Creatinine 1.36 (0.5-1.4) mg/dL Estim Creat Clear Calc 27.2 Estimated GFR 37 Random Glucose 105 (60-115) mg/dL Lactic Acid 2.6 H* (0.5-2.0) mmol/L Calcium 10.1 D (8.4-10.2) mg/dL Magnesium 2.3 (1.6-2.6) mg/dL Total Bilirubin 0.5 (0.0-1.0) mg/dL AST 28 (5-31) U/L ALT 13 (0-31) U/L Alkaline Phosphatase 64 (39-117) U/L B-Natriuretic Peptide 753 H (<100) pg/mL Total Protein 6.4 L (6.5-8.0) g/dL Albumin 3.6 (3.5-5.0) g/dL Stool Occult Blood NEGATIVE (NEGATIVE) Influenza Type A (PCR) NEGATIVE (Negative) Influenza Type B (PCR) NEGATIVE (Negative) RSV RNA Qual (PCR) NEGATIVE (Negative) SARS-CoV-2 RNA (RT-PCR) NEGATIVE (Negative) Crossmatch See Detail Independent Interpretation I performed an independent interpretation of an: Plain X-Ray ( Chest:Streaky opacity in the retrocardiac region and right lung base, which may represent atelectasis or infectious/inflammatory process. ) Radiology Impression Discussion of test interpretation with radiology: I have reviewed the radiologist's reading. Discharge Plan Discharge Clinical Impression: Pneumonia, COPD exacerbation, Anemia Patient Disposition: Admitted As Inpatient Print Language: Sami
--- NOTE | 2024-06-06 11:42 | ECG_ITS ---
Test Reason : SOB Blood Pressure : / mmHG Vent. Rate : 058 BPM Atrial Rate : 058 BPM P-R Int : 160 ms QRS Dur : 144 ms QT Int : 472 ms P-R-T Axes : 000 002 129 degrees QTc Int : 463 ms Sinus bradycardia Left bundle branch block Abnormal ECG When compared with ECG of 25-MAY-2023 15:05, No significant change was found Referred By: Jael Middleton Electronically Signed By:KATI ALVAREZ MD
[2024-06-06] MEDS: Albuterol Sulfate 2.5 MG, Albuterol/Iprat 2.5/0.5MG 3 ML 3 ML INHALE (12:51)
[2024-06-06 13:14] LABS: Basophils Absolute Auto 0.1 X10*3/uL (0.0-0.2); Basophils Percent Auto 0.5 % (0-2); Eosinophils Absolute Auto 0.5 X10*3/uL (0.0-0.4); Hematocrit 21.1 % (37.0-47.0); Imm Gran Abs Auto 0.07 X10*3/uL (0.00-0.03); Imm Gran Pct Auto 0.4 % (0.0-0.4); Lymphocytes Absolute Auto 5.5 X10*3/uL (1.2-4.9); Lymphocytes Percent Auto 33.8 % (20-40); MANUAL DIFF FLAG SCAN; Mean Corpuscular HGB Conc 29.9 g/dl (31.0-35.0); Mean Corpuscular Hemoglobin 22.7 pg (27.0-33.0); Mean Corpuscular Volume 76.2 fL (80.0-98.0); Mean Platelet Volume 10.3 fL (9.4-12.3); Monocytes Absolute Auto 1.2 X10*3/uL (0.1-1.2); Monocytes Percent Auto 7.1 % (2-11); Neutrophils Percent Auto 55.2 % (45-73); Platelet Count 302 X10*3/uL (160-400); Red Blood Count 2.77 X10*6/uL (4.20-5.50); Red Cell Distribution Width 16.2 % (11.0-16.0); SCAN SMEAR FLAG 1; White Blood Count 16.3 X10*3/uL (4.8-10.8)
[2024-06-06] MEDS: Albuterol Sulfate 2.5 MG, Albuterol Sulfate (0.083%) 2.5 MG 5 MG INHALE (13:18)
[2024-06-06 13:19] LABS: Hemoglobin 6.3 g/dl (12.0-16.0)
[2024-06-06 13:25] LABS: Prothrombin Time 11.1 SEC (10.9-12.4)
[2024-06-06 13:30] LABS: Alanine Aminotransferase 13 U/L (0-31); Albumin Level 3.6 g/dL (3.5-5.0); Alkaline Phosphatase 64 U/L (39-117); Anion Gap 16 (12-20); Aspartate Amino Transferase 28 U/L (5-31); Bilirubin Total 0.5 mg/dL (0.0-1.0); Blood Urea Nitrogen 27 mg/dL (9-16); Calcium 10.1 mg/dL (8.4-10.2); Carbon Dioxide 25 mmol/L (22-29); Chloride 110 mmol/L (96-108); Creatinine Clr Calc Pharmacy 27.2; Estimated Glomerular Filt Rate 37; Glucose Random 105 mg/dL (60-115); Magnesium 2.3 mg/dL (1.6-2.6); Potassium 4.4 mmol/L (3.3-5.1); Sodium 147 mmol/L (135-145); Total Protein 6.4 g/dL (6.5-8.0)
[2024-06-06] MEDS: methylPREDNISolone Sod Succ 125 MG/2 ML VIAL IVPUSH (13:31)
[2024-06-06] MEDS: Doxycycline Hyclate 100 MG in 0.9 % Sodium Chloride 250 ML 166.67 MG IV (13:31)
[2024-06-06 13:33] LABS: Lactic Acid 2.6 mmol/L (0.5-2.0)
[2024-06-06 13:35] LABS: SLIDE REVIEW VERIFIED
[2024-06-06 13:36] LABS: B Type Natriuretic Peptide 753 pg/mL (<100)
[2024-06-06 14:16] LABS: Influenza A PCR NEGATIVE (Negative); Influenza B PCR NEGATIVE (Negative); Resp Syncy Virus RNA Qual PCR NEGATIVE (Negative); SARS COV2 PCR INHOUSE NEGATIVE (Negative)
[2024-06-06 14:21] LABS: OBS Int Ctl Valid YES; OBS1 NEGATIVE (NEGATIVE)
--- NOTE | 2024-06-06 14:59 | P.HPHOSP_ITS ---
History of Present Illness Date of Service: 06/06/24 Attending physician on admission: Dave Medrano Chief Complaint: SOB Pt is an 83-year-old female with a PMH significant for?Asthma/COPD, HTN, insulin-dependent type 2 diabetes, HFpEF, severe pulmonary hypertension, RA on chronic prednisone, chronic anemia, and HLD who presents to the ED with?worsening SOB and BRAXTON x3 days. Symptoms began approximately 2 weeks ago, though have worsened in the past 3 days. SOB particularly pronounced with exertion, and patient reports using her inhaler frequently during the day without much relief. Has had nonproductive cough. Denies orthopnea, PND. Also experienced increased lower leg edema. Patient previously on Lasix but has not been taking it for quite some time. Denies hematemesis or hemoptysis. No melena or hematochezia. Denies fever, chills, nausea, vomiting, abdominal pain. No chest pain/pressure, or palpitations. Of note, patient follows with Dr. Pereyra for chronic anemia. Patient has not been taking iron supplementation due to constipation. In the ED pt was tachycardic up to 97, tachypneic up to 26, and with variable BP as low as 131/44, and desatting into the 80s on RA. Labs were significant for leukocytosis 16.3, H&H 6.3/21.1, sodium 147, BUN 27, lactic acid 2.6, and BNP 753. Renal function around baseline. Hepatic function WNL. Stool negative for occult blood. Tested negative for flu, RSV, and COVID. CXR showed streaky opacity in the retrocardiac region of right lung base possibly reflecting atelectasis or infectious/inflammatory process. EKG demonstrated sinus bradycardia with LBBB, similar to previous. Pt was treated with DuoNebs, Solu- Medrol and doxycycline. Pt will be admitted to the hospital acute hypoxic respiratory failure in the setting of anemia of chronic disease and acute CHF exacerbation. Review of Systems 2 Review of Systems: Negative except for that which is stated in the HPI Yes all other systems are reviewed and are negative [facility] Medical History (Updated 06/06/24 @ 17:19 by LAZARO Pimentel) Hypoxia Rheumatoid arthritis Cough COPD (chronic obstructive pulmonary disease) Bacteremia due to Streptococcus pneumoniae Benign paroxysmal positional vertigo Arthritis Restrictive lung disease Family History Mother Diabetes Maternal Grandmother Diabetes Surgical History Hx of cholecystectomy Social History Household Members: Family Housing: House Are you a primary nursing care partner to a significant other at home: No Do you presently have visiting nurse or other home services: Yes (form raiser comes to clean house) Alcohol intake: former Patient Tobacco Use Status: Never used Tobacco Cigarette Packs Per Day: 1 Advance Directives: No Advance Directives Information Provided: No Do you have a plan to hurt others: No Plan service: No Current occupational status: unemployed Meds Allergies Allergy/AdvReac Type Severity Reaction Status Date / Time latex [LATEX] Allergy Unknown RASH Verified 06/06/24 11:41 pineapple [PINEAPPLE] Allergy Unknown HIVES Verified 06/06/24 11:41 enalaprilat [From Vasotec] AdvReac Mild Unknown Verified 06/06/24 11:41 Home Medications ?Medication ?Instructions ?Recorded ?Confirmed ?Last Taken ?Type aspirin 81 mg tablet,delayed 81 mg PO DAILY 06/15/20 06/06/24 09/11/22 History release blood sugar diagnostic #10 ea 06/15/20 02/05/24 Unknown History inhalat.spacing dev,large mask #1 ea 06/15/20 02/05/24 Unknown History lancets 30 gauge #100 ea 06/15/20 02/05/24 Unknown History magnesium oxide 400 mg (241.3 mg 400 mg PO BID 06/15/20 06/06/24 09/11/22 History magnesium) tablet omeprazole 20 mg capsule,delayed 20 mg PO DAILY@0630 06/15/20 06/06/24 09/11/22 History release blood sugar diagnostic (FreeStyle 02/08/23 02/05/24 Unknown History Lite Strips) insulin glargine 100 unit/mL 16 unit subcut DAILY@0900 02/08/23 06/06/24 Unknown History subcutaneous solution (Lantus U-100 Insulin) dextromethorphan-guaifenesin 10 10 ml PO Q4-6H PRN Cough 06/06/24 06/06/24 Unknown History mg-100 mg/5 mL oral syrup docusate sodium 100 mg capsule 100 mg PO DAILY 06/06/24 06/06/24 Unknown History hydralazine 10 mg tablet 10 mg PO TID 06/06/24 06/06/24 Unknown History insulin aspart U-100 100 unit/mL See Protocol subcut TIDWM 06/06/24 06/06/24 Unknown History (3 mL) subcutaneous pen (Novolog FlexPen U-100 Insulin aspart) losartan 25 mg tablet 25 mg PO DAILY 06/06/24 06/06/24 Unknown History pravastatin 20 mg tablet 20 mg PO BEDTIME 06/06/24 06/06/24 Unknown History prednisone 2.5 mg tablet 5 mg PO DAILY 06/06/24 06/06/24 Unknown History verapamil 240 mg tablet,extended 240 mg PO BEDTIME 06/06/24 06/06/24 Unknown History release Physical Exam 2 Vital Signs and Narrative: Vital Signs: Last Vital Signs Temp 97.7 F 06/06/24 11:38 Pulse 83 06/06/24 13:13 Resp 26 H 06/06/24 13:13 BP 169/47 H 06/06/24 11:38 Pulse Ox 96 06/06/24 11:38 O2 Del Method Room Air 06/06/24 11:38 BMI result Body Mass Index 31.3 Constitutional: Alert, in no acute distress. Mental Status: Oriented to person, place and time. Eyes: Pupils are equal, round, and reactive to light. Ear, Nose, and Throat: Oropharynx clear, mucous membranes moist. Ears and nose without deformities. Trachea midline. Respiratory: Mild expiratory wheezing bilaterally. Breathing nonlabored, capable of speaking in complete sentences. Cardiovascular: S1, S2 regular rhythm, tachycardic. No murmurs, rubs, or gallops. Gastrointestinal: Abdomen soft, non-tender, non-distended. Normal bowel sounds. Neurologic: Cranial nerves II-XII are grossly intact bilaterally. No focal neurological deficits. Moves all extremities spontaneously. Skin: Warm, dry. Extremities: 2+ bilateral pitting edema. Psychiatric: Normal mood and affect. Results Labs 06/06/24 13:07 06/06/24 13:07 Labs: Laboratory Results - last 24 hr 06/06/24 06/06/24 13:07 14:09 MCV 76.2 L MCH 22.7 L MCHC 29.9 L RDW 16.2 H Plt Count 302 MPV 10.3 Immature Gran % (Auto) 0.4 Neut % (Auto) 55.2 Lymph % (Auto) 33.8 [place] % (Auto) 7.1 Eos % (Auto) 3.0 Baso % (Auto) 0.5 Lymph # (Auto) 5.5 H [place] # (Auto) 1.2 Eos # (Auto) 0.5 H Baso # (Auto) 0.1 Abs Immat Gran (auto) 0.07 H Absolute Neuts (auto) 9.0 H Absolute Nucleated RBC 0.000 Nucleated RBC % (auto) 0.0 Smear Tech's Comments VERIFIED PT 11.1 INR 1.0 Anion Gap 16 Estim Creat Clear Calc 27.2 Estimated GFR 37 Random Glucose 105 Lactic Acid 2.6 H* Calcium 10.1 D Magnesium 2.3 Total Bilirubin 0.5 AST 28 ALT 13 Alkaline Phosphatase 64 B-Natriuretic Peptide 753 H Total Protein 6.4 L Albumin 3.6 Stool Occult Blood NEGATIVE Influenza Type A (PCR) NEGATIVE Influenza Type B (PCR) NEGATIVE RSV RNA Qual (PCR) NEGATIVE SARS-CoV-2 RNA (RT-PCR) NEGATIVE Blood Type A Positive Antibody Screen NEGATIVE Crossmatch See Detail Imaging Radiologist's Impressions: Impressions Chest X-Ray 06/06/24 11:42 IMPRESSION: Streaky opacity in the retrocardiac region and right lung base, which may represent atelectasis or infectious/inflammatory process. Electronically signed by: Denise Brantley MD 06/06/2024 01:45 PM [facility] Assessment and Plan (1) CHF exacerbation: Status: Acute (2) Anemia: Status: Acute (3) Hypoxia: Status: Acute Plan Pt is an 83-year-old female with a PMH significant for?Asthma/COPD, HTN, insulin-dependent type 2 diabetes, HFpEF, severe pulmonary hypertension, RA on chronic prednisone, chronic anemia, and HLD who presents to the ED with?worsening SOB and BRAXTON x3 days. Pt will be admitted to the hospital acute hypoxic respiratory failure in the setting of anemia of chronic disease and acute CHF exacerbation. Symptomatic anemia H&H 6.3/21.1 (last labs 11.8/37.6 on 08/09), pt with hypoxia, SOB, BRAXTON, increased fatigued Likely of chronic disease secondary to CKD3 No hemoptysis, hematemesis, melena, or hematochezia; stool negative for occult blood Follows with Dr. Pereyra Iron low at 17, saturation low at 5%, TIBC WNL at 03:16; patient has stopped taking iron supplementation quite a while ago due to constipation Will check B12 and folate Transfused 2 units PRBCs in the ED with Lasix 20 mg IV in between Hematology consult Monitor H&H Acute hypoxic respiratory failure in the setting of HFpEF exacerbation SOB, BRAXTON, nonproductive cough, BNP elevated, bilateral pitting lower leg edema, has not been on home diuretics Echocardiogram 09/13/2022 showed LVEF 50-55%, moderate aortic valve stenosis, and severe pulmonary hypertension Will treat with Lasix 20mg IV daily Echocardiogram Monitor I/O, daily weights, lytes/mag Low-salt diet Titrate supplemental O2>92, wean as tolerated Monitor on telemetry Acute lactic acidosis Lactic acid 2.6 with repeat 3.7 Secondary to hypoxia, not sepsis Does not meet SIRS criteria: CXR not convincing for pneumonia, no fever or productive cough Leukocytosis chronically elevated secondary to chronic steroid use; tachycardia and tachypnea secondary to anemia Clinically pt appear stable and non-toxic Asthma/COPD overlap syndrome Mild wheezing, not in acute exacerbation Will treat with DuoNebs guaifenesin Will hold on additional abx at this time, no convincing indication of pneumonia Continue home chronic steroids Monitor respiratory status HTN BP slightly soft likely secondary to hypovolemia Hold hydralazine, losartan, and verapamil for now as giving diuretics Resume as indicated RA Continue chronic prednisone GERD Continue PPI Full Code Attending:?Dr. Medrano DVT Prophylaxis: Pneumatic boots Pt will require a hospitalization of at least two nights for treatment of?acute hypoxic respiratory failure in the setting of anemia and CHF exacerbation. Patient has been transfused 2 units PRBCs and will require close H&H monitoring with additional transfusions as necessary. Patient will also require supplemental oxygen and administration of IV diuretics for CHF exacerbation. Quality Stroke Does the patient have a stroke diagnosis?: No VTE Prior VTE?: No VTE Risk Level:: Medical - moderate - high VTE Device Contraindication: N/A - Device Ordered VTE Drug Contraindication: Treatment Not Indicated
[2024-06-06 15:10] LABS: Reflex Lactate? Lactic Acid Added
--- NOTE | 2024-06-06 15:59 | PHA.MEDREC ---
Addendum entered by Antonio Pham RPh 06/06/24 16:10: Reviewed by [facility] Original Note: Pharmacy Consult ? Medication Reconciliation Pharmacy has completed the medication reconciliation. Spoke with patient and daughter to confirm medications. She is currently on a prednisone taper with 2.5 mg tabs: 7.5 mg for April, 5 mg for May, and 2.5 mg for June/until finished per patient and daughter. She recently picked up a 5 mg prednisone rx but has not started it yet. She confirmed the Lantus units (16 in the AM) and she uses novolog on a sliding scale. Patient and daughter report she is currently not taking furosemide. Patient confirmed magnesium is BID. Patient is unsure when she last took her medications.
[2024-06-06 16:05] LABS: Iron 17 mcg/dL (30-160); Percent Iron Saturation 5 % (15-50); Total Iron Binding Capacity 316 mcg/dL (228-428); Unsaturated Iron Binding 299 ug/dL
[2024-06-06 16:53] LABS: ~Lactic Acid-LAB USE ONLY 3.7 mmol/L (0.5-2.0)
[2024-06-06] MEDS: Furosemide 20 MG/2 ML VIAL IVPUSH (17:22)
[2024-06-06 18:10] LABS: Cancel Lactic Acid Canceled
--- NOTE | 2024-06-06 18:15 | P.CNHO_ITS ---
Subjective - Subjective Chief complaint: Consult for: Patient: known to practice within the last 3 years Consult date: 06/06/24 Requesting Physician: Tone. Primary Care Provider: Teofilo Moreno III, MD Family Provider: Josh Medical Summary: DIAGNOSIS: HPI - Consult Narrative Reason for consult: Consult for: Anemia. Narrative: Leann Almanzar is a 83 year old lady, who presents to the ED with?worsening SOB and BRAXTON x3 days. Symptoms began approximately 2 weeks ago, though have worsened in the past 3 days. SOB particularly pronounced with exertion. She reports using her inhaler frequently during the day without much relief. Has had nonproductive cough. Denies orthopnea, PND. Also experienced increased lower leg edema. Patient previously on Lasix but has not been taking it for quite some time. Denies hematemesis or hemoptysis. No melena or hematochezia. Denies fever, chills, nausea, vomiting, abdominal pain. No chest pain/pressure, or palpitations. Of note, patient follows with Dr. Pereyra for chronic anemia. Patient has not been taking iron supplementation due to constipation. HPI: She was noted to have normal counts in 2006, but since about 2007 her hemoglobin showed a gradual decline to about 10 g/dL. She has also had neutrophilic leukocytosis with a white count from 11 to 14 K since about 2010. In August 2012, she had normal iron studies as well as B12 and folate levels. Hematological workup in 2013 demonstrated iron deficiency with ferritin less than 1 and transferrin saturation less than 5. She also had a history of B12 deficiency and has been on monthly B12 injection. In the ED pt was tachycardic up to 97, tachypneic up to 26, and with variable BP as low as 131/44, and desatting into the 80s on RA. Labs were significant for leukocytosis 16.3, H&H 6.3/21.1, sodium 147, BUN 27, lactic acid 2.6, and BNP 753. Renal function around baseline. Hepatic function WNL. Stool negative for occult blood. Tested negative for flu, RSV, and COVID. CXR showed streaky opacity in the retrocardiac region of right lung base possibly reflecting atelectasis or infectious/inflammatory process. EKG demonstrated sinus bradycardia with LBBB, similar to previous. Pt was treated with DuoNebs, Solu-Medrol and doxycycline. Pt will be admitted to the hospital acute hypoxic respiratory failure in the setting of anemia of chronic disease and acute CHF exacerbation. PMH significant for: Asthma/COPD, HTN, insulin-dependent type 2 diabetes, HFpEF, severe pulmonary hypertension, RA on chronic prednisone, chronic anemia, and HLD. Medical History: Arthritis Bacteremia due to Streptococcus pneumoniae Benign paroxysmal positional vertigo COPD (chronic obstructive pulmonary disease) Cough Hypoxia Restrictive lung disease. Surgical History: Hx of cholecystectomy Family History: Mother Diabetes Maternal Grandmother Diabetes Social History: Living Situation History: Household Members: Family Housing: House Are you a primary nonfarm animal caretaker to a significant other at home: No Do you presently have visiting nurse or other home services: Yes Do you presently have visiting nurse or other home services comment: weekend receptionist comes to clean house Review of Systems - Constitutional Reports system reviewed and no additional complaints, except as documented - Eyes Reports system reviewed and no additional complaints, except as documented - ENT Reports system reviewed and no additional complaints, except as documented - Cardiovascular Reports system reviewed and no additional complaints, except as documented - Respiratory Reports no additional respiratory complaints - Gastrointestinal Reports system reviewed and no additional complaints, except as documented - Genitourinary Reports no additional female genitourinary complaints - Musculoskeletal Reports system reviewed and no additional complaints, except as documented - Integumentary/Breasts Skin/Breast: Reports no additional skin complaints - Neurologic Reports system reviewed and no additional complaints, except as documented - Psychiatric Reports system reviewed and no additional complaints, except as documented - Endocrine Reports no additional endocrine complaints - Hematologic/Lymphatic Reports system reviewed and no additional complaints, except as documented - Allergic/Immunologic Reports system reviewed and no additional complaints, except as documented Oncology Screenings - ECOG Performance Status ECOG Performance Status: 1 [facility] Medical History: Medical History (Last Reviewed 06/07/24 @ 00:19 by Darin Flores RN) Arthritis Bacteremia due to Streptococcus pneumoniae Benign paroxysmal positional vertigo COPD (chronic obstructive pulmonary disease) Cough Hypoxia Restrictive lung disease Rheumatoid arthritis Functional capacity: uses cane/walker Patient : No Family History: Family History (Last Reviewed 06/07/24 @ 00:19 by Darin Flores RN) Mother Diabetes Maternal Grandmother Diabetes Surgical History: Surgical History (Last Reviewed 06/07/24 @ 00:19 by Darin Flores RN) Hx of cholecystectomy Social History: Social History (Last Reviewed 06/07/24 @ 00:19 by Darin Flores RN) Living Situation History: Household Members: Children Housing: Apartment Are you a primary nonfarm animal caretaker to a significant other at home: No Do you presently have visiting nurse or other home services: Yes Alcohol History Details: 1. How often do you have a drink containing alcohol?: a. Never AUDIT-C Alcohol total score: 0 Currently Displaying Signs/Symptoms of Alcohol Withdrawal: No Tobacco History: Patient Tobacco Use Status: Never used Tobacco Cigarette Packs Per Day: 1 Smoked in Last 30 Days: No Substance Use History: Use of substances other than those prescribed or required for medical reasons : No Currently Displaying Signs/Symptoms of Drug Intoxication Withdrawal: No Domestic Abuse History: Have you been hit, kicked, punched, or otherwise hurt by someone within the past year? If so, by whom?: No Do you feel safe in your current relationship?: No Current Relationship Is there a partner from a previous relationship who is making you feel unsafe now?: No Are you made to feel afraid or neglected: No Advance Directives: Advance Directives: No Advance Directives Information Provided: No Homicidal Assessment: Do you have a plan to hurt others: No Plan Nutrition Assessment: Recently lost weight without trying: No How much weight loss: Not applicable Eating poorly because of decreased appetite: No Nutrition screen score: 0 Nutrition Risks: No Nutritional Risk Patient : No : No Poor oral hygiene: No Occupation Assessmet: service: No Current occupational status: unemployed Home Medications and Allergies Current Medications: Current Medications Acetaminophen (Acetaminophen 325 Mg Tablet) 650 mg PO Q6H PRN PRN Reason: Pain, Mild (Pain Scale 1-3), fever or headache Calcium Carbonate (Calcium Carbonate 750 Mg Tab.Chew) 750 mg PO Q4H PRN PRN Reason: Heartburn Docusate Sodium (Docusate Sodium 100 Mg Capsule) 100 mg PO DAILY THAD Furosemide (Furosemide 20 Mg/2 Ml Vial) 20 mg IVPUSH DAILY THAD; Protocol Magnesium Hydroxide (Milk Of Magnesia 30 Ml Oral.Susp) 30 ml PO DAILY PRN PRN Reason: Constipation Magnesium Oxide (Magnesium Oxide 400 Mg Tablet) 400 mg PO BID [facility] Melatonin (Melatonin 3 Mg Tablet) 6 mg PO BEDTIME PRN PRN Reason: Insomnia Omeprazole (Omeprazole 20 Mg Capsule.Dr) 20 mg PO DAILY@0630 [facility], [facility] Ondansetron HCl (Ondansetron Hcl 4 Mg/2 Ml Vial) 4 mg IVPUSH Q8H PRN PRN Reason: Nausea and Vomiting Pravastatin Sodium (Pravastatin Sodium 20 Mg Tablet) 20 mg PO BEDTIME THAD Prednisone (Prednisone 5 Mg Tablet) 5 mg PO DAILY [facility] Sodium Chloride (0.9 % Sodium Chloride Flush 3 Ml Syringe) 3 ml IVFLUSH QSHIFT [facility] Home Medications ?Medication ?Instructions ?Recorded ?Confirmed ?Type aspirin 81 mg tablet,delayed 81 mg PO DAILY 06/15/20 06/06/24 History release blood sugar diagnostic #10 ea 06/15/20 02/05/24 History inhalat.spacing dev,large mask #1 ea 06/15/20 02/05/24 History lancets 30 gauge #100 ea 06/15/20 02/05/24 History magnesium oxide 400 mg (241.3 mg 400 mg PO BID 06/15/20 06/06/24 History magnesium) tablet omeprazole 20 mg capsule,delayed 20 mg PO DAILY@0630 06/15/20 06/06/24 History release blood sugar diagnostic (FreeStyle 02/08/23 02/05/24 History Lite Strips) insulin glargine 100 unit/mL 16 unit subcut DAILY@0900 02/08/23 06/06/24 History subcutaneous solution (Lantus U-100 Insulin) dextromethorphan-guaifenesin 10 10 ml PO Q4-6H PRN Cough 06/06/24 06/06/24 History mg-100 mg/5 mL oral syrup docusate sodium 100 mg capsule 100 mg PO DAILY 06/06/24 06/06/24 History hydralazine 10 mg tablet 10 mg PO TID 06/06/24 06/06/24 History insulin aspart U-100 100 unit/mL See Protocol subcut TIDWM 06/06/24 06/06/24 History (3 mL) subcutaneous pen (Novolog FlexPen U-100 Insulin aspart) losartan 25 mg tablet 25 mg PO DAILY 06/06/24 06/06/24 History pravastatin 20 mg tablet 20 mg PO BEDTIME 06/06/24 06/06/24 History prednisone 2.5 mg tablet 5 mg PO DAILY 06/06/24 06/06/24 History verapamil 240 mg tablet,extended 240 mg PO BEDTIME 06/06/24 06/06/24 History release Allergies Allergy/AdvReac Type Severity Reaction Status Date / Time latex [LATEX] Allergy Unknown RASH Verified 06/06/24 11:41 pineapple [PINEAPPLE] Allergy Unknown HIVES Verified 06/06/24 11:41 enalaprilat [From Vasotec] AdvReac Mild Unknown Verified 06/06/24 11:41 Physical Exam Vital signs: Vital Signs Temp 98.5 F 06/06/24 17:20 Pulse 103 H 06/06/24 17:20 Resp 16 06/06/24 17:20 BP 124/51 L 06/06/24 17:20 Pulse Ox 93 06/06/24 15:41 O2 Del Method Nasal Cannula 06/06/24 15:41 O2 Flow Rate 2 06/06/24 15:41 Intake & Output 06/05/24 06/06/24 06/06/24 18:59 06:59 18:59 Intake Total 600 / 600 Balance 600 / 600 Intake: Intake (Blood Product) Amount 350 / 350 Red Blood Cells (E0336) Unit 350 / 350 [id number] Intake, IV Amount 250 / 250 Doxycycline Hyclate 100 mg In 0 250 / 250 .9 % Sodium Chloride 250 ml @ 166.67 mls/hr IV ONCE ONE Rx#: [id number] Other: Weight 70.307 kg Weight 70.307 kg - Constitutional Present: moderate distress - Routine HEENT Exam Head: Present: normal inspection, normocephalic Eye: Present: normal appearance ENT: Present: mucous membranes moist - Routine Neck Exam Present: supple Hem/Onc Consult Result - Labs CBC & Chem 7: 06/09/24 07:30 06/10/24 06:30 Labs: Short CBC 06/06/24 Range/Units 13:07 WBC 16.3 H (4.8-10.8) X10*3/uL Hgb 6.3 L* D (12.0-16.0) g/dl Hct 21.1 L D (37.0-47.0) % Plt Count 302 (160-400) X10*3/uL BMP 06/06/24 13:07 Sodium 147 H Potassium 4.4 Chloride 110 H Carbon Dioxide 25 BUN 27 H Creatinine 1.36 Calcium 10.1 D Liver Function 06/06/24 Range/Units 13:07 Total Bilirubin 0.5 (0.0-1.0) mg/dL AST 28 (5-31) U/L ALT 13 (0-31) U/L Alkaline Phosphatase 64 (39-117) U/L Albumin 3.6 (3.5-5.0) g/dL Assessment and Plan Patient Active problem list reviewed?: Yes (1) Anemia Status: Acute Assessment and plan: 83-year-old lady with iron deficiency anemia and history of B12 deficiency. She stopped oral iron supplementation because of constipation. She also gets vitamin B12 injections at home once a month. She received parenteral iron therapy in February 2021. She presents with worsening Anemia. with Hgb of 6.3/Hct 21. DEFFERENTIAL DIAGOSIS: 1. IRON DEFICIENCY ANEMIA: Iron low at 17, saturation low at 5%, TIBC WNL at 316. No obvious bleeding. No hemoptysis, hematemesis, melena, or hematochezia; Stool negative for occult blood. She underwent both upper endoscopy as well as colonoscopy in December [address] Jennings and other than small high hernia, there was no evidence of celiac disease or obvious source of bleeding. Patient has stopped taking iron supplementation quite a while ago due to constipation. 2. B12/FOLATE DEFICIENCY: Has H/O B12 deficiency, was on B12 shots. 3. Chronic disease secondary to stage III CKD: This is most likely. 4. 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 She has a H/O Chronic neutrophilic leukocytosis. Likely related to underlying asthma and prednisone use. CML ruled out on the basis of flow cytometry and negative BCR/ABL on bood. PLAN: She is being transfused 2 units PRBCs, ED with Lasix 20 mg IV in between. Will check B12 and folate.: 372/8.9. Monitor H&H. . Transfuse if Hgb <8. Thanks, CC: Dr. Teofilo Moreno. - Time Spent With Patient Time Spent with Patient (in minutes): 30
[2024-06-06] MEDS: Magnesium Oxide 400 MG TABLET PO (21:53)
[2024-06-06] MEDS: Pravastatin Sodium 20 MG TABLET PO (21:53)
[2024-06-07] VITALS (7 sets, daily range): BP systolic 148–189; BP diastolic 60–81; PULSE 65–91; RESP 14–20; TEMP 36.3–36.9; O2SAT 92–97
[2024-06-07 00:11] LABS: Appearance Urine Clear; Color Urine Yellow; Glucose Urine UA >=1000 mg/dL (Negative); Leukocyte Esterase Urine Negative (Negative); Nitrite Urine Negative (Negative); Specific Gravity - Urine 1.015 (1.005-1.025); UMIC TRIGGER UACC YES; Urine Blood Negative (Negative); Urine Ketones Trace mg/dL (Negative); Urine Protein 30 (1+) mg/dL (Neg-Trace)
[2024-06-07 00:21] LABS: Bacteria Urine None Seen (None Seen); Hyaline Casts Urine 0-2 /LPF (0-2); RBC Urine 0-2 /HPF (0-2); Squamous Epithelial Cell Urine 0-2 /HPF (0-2); WBC Urine 0-5 /HPF (0-5)
[2024-06-07] MEDS: Albuterol/Iprat 2.5/0.5MG 3 ML AMPUL.NEB INHALE ×2 (01:54→19:33)
[2024-06-07] MEDS: Omeprazole 20 MG CAPSULE.DR PO (05:06)
[2024-06-07 07:41] LABS: Hematocrit 28.8 % (37.0-47.0); Hemoglobin 9.2 g/dl (12.0-16.0); Mean Corpuscular HGB Conc 31.9 g/dl (31.0-35.0); Mean Corpuscular Hemoglobin 24.4 pg (27.0-33.0); Mean Corpuscular Volume 76.4 fL (80.0-98.0); Mean Platelet Volume 10.5 fL (9.4-12.3); Platelet Count 307 X10*3/uL (160-400); Red Blood Count 3.77 X10*6/uL (4.20-5.50); Red Cell Distribution Width 16.7 % (11.0-16.0); White Blood Count 15.4 X10*3/uL (4.8-10.8)
[2024-06-07 07:52] LABS: Anion Gap 17 (12-20); Blood Urea Nitrogen 30 mg/dL (9-16); Calcium 9.9 mg/dL (8.4-10.2); Carbon Dioxide 22 mmol/L (22-29); Chloride 106 mmol/L (96-108); Creatinine Clr Calc Pharmacy 24.3; Estimated Glomerular Filt Rate 33; Glucose Random 305 mg/dL (60-115); Magnesium 2.1 mg/dL (1.6-2.6); Potassium 4.2 mmol/L (3.3-5.1); Sodium 141 mmol/L (135-145)
[2024-06-07 08:13] LABS: Glucose, Whole Blood 249 mg/dL (60-115)
[2024-06-07 08:25] LABS: Folate 8.9 ng/mL (> or = 4.0); Vitamin B12 372 pg/mL (200-900)
[2024-06-07] MEDS: Furosemide 20 MG/2 ML VIAL IVPUSH (09:11)
[2024-06-07] MEDS: predniSONE 5 MG TABLET PO (09:11)
[2024-06-07] MEDS: Magnesium Oxide 400 MG TABLET PO ×2 (09:11→20:53)
[2024-06-07] MEDS: Docusate Sodium 100 MG CAPSULE PO (09:11)
[2024-06-07] MEDS: 0.9 % Sodium Chloride Flush 3 ML SYRINGE IVFLUSH ×2 (09:12→17:02)
--- NOTE | 2024-06-07 10:28 | MHC.CM.PN ---
CM met with Patient at bedside and addressed IMM with her, providing Patient with the original and a copy has been placed on the chart. Patient lives in an apartment with her handicapped Son who has his own [employer]. Patient has a [employer] for herself, 3 hours/day. Home/resume said services is the goal and CM has initiated and will follow for dc planning. PCP is Dr. Huber Moreno and Daughter/HCP/Antonina will transport to home.
[2024-06-07 12:10] LABS: Glucose, Whole Blood 259 mg/dL (60-115)
[2024-06-07] MEDS: Insulin Lispro 100 UNIT/ML 3 ML VIAL SUBCUT ×2 (12:29→20:52)
[2024-06-07] MEDS: Flu Vacc TS2024-25(6mos up)/PF 0.5 ML SYRINGE IM (12:30)
[2024-06-07] MEDS: Insulin Glargine,Hum.rec.anlog 100 UNIT/ML 10 ML VIAL 12 UNIT SUBCUT (12:31)
[2024-06-07] MEDS: hydrALAZINE HCl 10 MG TABLET PO ×2 (15:21→20:53)
[2024-06-07] MEDS: guaiFENesin DM 200/20/10 ML 10 ML SYRUP PO ×2 (15:21→20:53)
--- NOTE | 2024-06-07 15:54 | P.PNIM_ITS ---
Subjective Subjective Date of Service: 06/07/24 Interval History: History obtained via interpreter and translator. Feeling better this morning, overnight became short of breath treated with updraft with good relief in symptoms, complaining of shortness of breath improved since admission, denies chest pain, no palpitations, complaining of cough, no fevers, no chills, hematocrit improved after 2 units of blood transfusion. Review of Systems All other system reviewed and are negative Physical Exam 2 Vital Signs: Vital Signs: Last Vital Signs Temp 97.4 F 06/07/24 12:00 Pulse 82 06/07/24 12:00 Resp 20 06/07/24 12:00 BP 152/74 H 06/07/24 12:00 Pulse Ox 96 06/07/24 12:00 O2 Del Method Nasal Cannula 06/07/24 12:00 O2 Flow Rate 2 06/07/24 12:00 BMI result Body Mass Index 31.3 Const: Other: Gen: in no acute distress HEENT: sclera anicteric, moist mucus membranes Neck: supple, no JVD Lungs: Diminished breath sounds few expiratory wheeze at bases, no crackles Heart: regular rate and rhythm, no murmurs Abd: soft, non-tender, non-distended Ext: Bilateral pitting edema improved since yesterday Skin: warm/well-perfused Neuro: alert and oriented x3, no focal findings Psych: appropriate affect Objective Data Active Medications Acetaminophen (Acetaminophen 325 Mg Tablet) 650 mg PO Q6H PRN PRN Reason: Pain, Mild (Pain Scale 1-3), fever or headache Albuterol/Ipratropium (Albuterol/Iprat 2.5/0.5mg 3 Ml Ampul.Neb) 3 ml INHALE RQ6H WHILE AWAKE [facility] Calcium Carbonate (Calcium Carbonate 750 Mg Tab.Chew) 750 mg PO Q4H PRN PRN Reason: Heartburn Docusate Sodium (Docusate Sodium 100 Mg Capsule) 100 mg PO DAILY [facility] Last Admin: 06/07/24 09:11 Dose: 100 mg Documented By: PODMORP Furosemide (Furosemide 20 Mg/2 Ml Vial) 20 mg IVPUSH DAILY [facility]; Protocol Last Admin: 06/07/24 09:11 Dose: 20 mg Documented By: PODMORP Glucose (Glucose Gel 15 Gm Gel..Gram.) 15 gm PO Q15M PRN; Protocol PRN Reason: per Hypoglycemia Standing Ord. Guaifenesin/Dextromethorphan (Guaifenesin Dm 200/20/10 Ml 10 Ml Syrup) 10 ml PO TID [facility] Last Admin: 06/07/24 15:21 Dose: 10 ml Documented By: PODMORP Hydralazine HCl (Hydralazine Hcl 10 Mg Tablet) 10 mg PO TID [facility]; Protocol Last Admin: 06/07/24 15:21 Dose: 10 mg Documented By: TORIMORP Dextrose (D10) 250 mls @ 750 mls/hr IV Q15M PRN; Protocol PRN Reason: per Hypoglycemia Standing Ord. Insulin Glargine (Insulin Glargine,Hum.Rec.Anlog 100 Unit/Ml 10 Ml Vial) 12 unit SUBCUT DAILY [facility] Last Admin: 06/07/24 12:31 Dose: 12 unit Documented By: TORIMORP Insulin Human Lispro (Insulin Lispro 100 Unit/Ml 3 Ml Vial) 0 unit SUBCUT QIDACHS [facility]; Protocol Last Admin: 06/07/24 12:29 Dose: 6 unit Documented By: PELON Magnesium Hydroxide (Milk Of Magnesia 30 Ml Oral.Susp) 30 ml PO DAILY PRN PRN Reason: Constipation Magnesium Oxide (Magnesium Oxide 400 Mg Tablet) 400 mg PO BID [facility] Last Admin: 06/07/24 09:11 Dose: 400 mg Documented By: TORIMORP Melatonin (Melatonin 3 Mg Tablet) 6 mg PO BEDTIME PRN PRN Reason: Insomnia Omeprazole (Omeprazole 20 Mg Capsule.Dr) 20 mg PO DAILY@0630 [facility] Last Admin: 06/07/24 05:06 Dose: 20 mg Documented By: LAFLAMC Ondansetron HCl (Ondansetron Hcl 4 Mg/2 Ml Vial) 4 mg IVPUSH Q8H PRN PRN Reason: Nausea and Vomiting Pravastatin Sodium (Pravastatin Sodium 20 Mg Tablet) 20 mg PO BEDTIME [facility] Last Admin: 06/06/24 21:53 Dose: 20 mg Documented By: POLOORRJustice Prednisone (Prednisone 5 Mg Tablet) 5 mg PO DAILY [facility] Last Admin: 06/07/24 09:11 Dose: 5 mg Documented By: TORIMORP Sodium Chloride (0.9 % Sodium Chloride Flush 3 Ml Syringe) 3 ml IVFLUSH QSHIFT [facility] Last Admin: 06/07/24 09:12 Dose: 3 ml Documented By: PODMORP Verapamil HCl (Verapamil Hcl Sr 240 Mg Tablet.Er) 240 mg PO BEDTIME [facility]; Protocol Labs 06/07/24 06:49 06/07/24 06:49 Labs: Laboratory Results - last 24 hr 06/06/24 06/06/24 06/06/24 13:07 14:09 16:25 MCV MCH MCHC RDW Plt Count MPV Absolute Nucleated RBC Nucleated RBC % (auto) Anion Gap Estim Creat Clear Calc Estimated GFR POC Glucose Random Glucose Lactic Acid F/U @ 2Hr 3.7 H* Calcium Magnesium Iron 17 L TIBC 316 % Saturation 5 L Unsat Iron Binding 299 Vitamin B12 Folate Urine Color Urine Appearance Urine pH Ur Specific [place] Urine Protein Urine Glucose (UA) Urine Ketones Urine Blood Urine Nitrite Ur Leukocyte Esterase Urine RBC Urine WBC Ur Squamous Epith Cells Urine Bacteria Hyaline Casts Blood Type A Positive Antibody Screen NEGATIVE Crossmatch See Detail 06/06/24 06/07/24 06/07/24 23:59 06:49 08:08 MCV 76.4 L MCH 24.4 L MCHC 31.9 RDW 16.7 H Plt Count 307 MPV 10.5 Absolute Nucleated RBC 0.000 Nucleated RBC % (auto) 0.0 Anion Gap 17 Estim Creat Clear Calc 24.3 Estimated GFR 33 POC Glucose 249 H Random Glucose 305 H Lactic Acid F/U @ 2Hr Calcium 9.9 Magnesium 2.1 Iron TIBC % Saturation Unsat Iron Binding Vitamin B12 372 Folate 8.9 Urine Color Yellow Urine Appearance Clear Urine pH 5.0 Ur Specific [place] 1.015 Urine Protein 30 (1+) H Urine Glucose (UA) >=1000 H Urine Ketones Trace Urine Blood Negative Urine Nitrite Negative Ur Leukocyte Esterase Negative Urine RBC 0-2 Urine WBC 0-5 Ur Squamous Epith Cells 0-2 Urine Bacteria None Seen Hyaline Casts 0-2 Blood Type Antibody Screen Crossmatch 06/07/24 11:55 MCV MCH MCHC RDW Plt Count MPV Absolute Nucleated RBC Nucleated RBC % (auto) Anion Gap Estim Creat Clear Calc Estimated GFR POC Glucose 259 H Random Glucose Lactic Acid F/U @ 2Hr Calcium Magnesium Iron TIBC % Saturation Unsat Iron Binding Vitamin B12 Folate Urine Color Urine Appearance Urine pH Ur Specific [place] Urine Protein Urine Glucose (UA) Urine Ketones Urine Blood Urine Nitrite Ur Leukocyte Esterase Urine RBC Urine WBC Ur Squamous Epith Cells Urine Bacteria Hyaline Casts Blood Type Antibody Screen Crossmatch Microbiology Microbiology Results: Microbiology 06/06/24 13:29 Blood Culture - Preliminary Blood - Venous No growth after 24 hours. 06/06/24 13:17 Blood Culture - Preliminary Blood - Venous No growth after 24 hours. Assessment and Plan (1) Hypoxia: Status: Acute (2) CHF exacerbation: Status: Acute (3) Anemia: Status: Acute Plan 83-year-old female with a PMH significant for?Asthma/COPD, HTN, insulin- dependent type 2 diabetes, HFpEF, severe pulmonary hypertension, RA on chronic prednisone, chronic anemia, and HLD who presents to the ED with?worsening SOB and BRAXTON x3 days. Pt will be admitted to the hospital acute hypoxic respiratory failure in the setting of anemia of chronic disease and acute CHF exacerbation. Symptomatic anemia H&H 6.3/21.1 (last labs 11.8/37.6 on 08/09), Likely anemia of chronic disease secondary to CKD3 No hemoptysis, hematemesis, melena, or hematochezia; stool negative for occult blood Iron low at 17, saturation low at 5%, TIBC WNL patient has stopped taking iron supplementation quite a while ago due to constipation, normal B12 and folate Received 2 units of packed RBC hematocrit improved to 28.8 Monitor H&H, add iron supplements Acute hypoxic respiratory failure in the setting of HFpEF exacerbation Shortness of breath improved, BNP 753 , not using home diuretics Echocardiogram 09/13/2022 showed LVEF 50-55%, moderate aortic valve stenosis, and severe pulmonary hypertension Continue Lasix 20mg IV daily Echocardiogram ordered Monitor I/O, daily weights, lytes/mag Titrate supplemental O2>92, wean as tolerated, not on home O2 Chronic kidney disease stage 3 Slight bump in creatinine likely due to diuretics follow BMP while being diuresed. Acute lactic acidosis Lactic acid 2.6 with repeat 3.7 Secondary to hypoxia, not sepsis, Does not meet SIRS criteria: CXR not convincing for pneumonia, no fever or productive cough Leukocytosis chronically elevated secondary to chronic steroid use; tachycardia and tachypnea secondary to anemia Clinically pt appear stable and non-toxic Asthma/COPD overlap syndrome No acute exacerbation continue cough medication and DuoNeb HTN Resume home medication hydralazine and verapamil hold losartan due to RA Continue chronic prednisone GERD Continue PPI Full Code DVT Prophylaxis: Pneumatic boots due to anemia Pt will require continued inpatient hospitalization for treatment of acute hypoxic respiratory failure requiring IV diuretics and close monitoring of H&H. Quality Stroke Does the patient have a stroke diagnosis?: No VTE Prior VTE?: No VTE Risk Level:: Medical - moderate - high VTE Device Contraindication: N/A - Device Ordered VTE Drug Contraindication: Treatment Not Indicated
[2024-06-07 16:46] LABS: Glucose, Whole Blood 128 mg/dL (60-115)
[2024-06-07] MEDS: Ferrous Sulfate 324 MG TABLET.DR PO (17:01)
[2024-06-07 20:45] LABS: Glucose, Whole Blood 167 mg/dL (60-115)
[2024-06-07] MEDS: Pravastatin Sodium 20 MG TABLET PO (20:53)
[2024-06-07] MEDS: VerapamiL HCL SR 240 MG TABLET.ER PO (20:53)
[2024-06-08] VITALS (14 sets, daily range): BP systolic 115–180; BP diastolic 56–80; PULSE 58–100; RESP 12–20; TEMP 36.2–37.3; O2SAT 94–99
[2024-06-08] MEDS: Omeprazole 20 MG CAPSULE.DR PO (06:17)
[2024-06-08 06:58] LABS: Hematocrit 28.2 % (37.0-47.0); Hemoglobin 8.9 g/dl (12.0-16.0); Mean Corpuscular HGB Conc 31.6 g/dl (31.0-35.0); Mean Corpuscular Hemoglobin 24.5 pg (27.0-33.0); Mean Corpuscular Volume 77.5 fL (80.0-98.0); Mean Platelet Volume 10.7 fL (9.4-12.3); Platelet Count 311 X10*3/uL (160-400); Red Blood Count 3.64 X10*6/uL (4.20-5.50); Red Cell Distribution Width 17.5 % (11.0-16.0); White Blood Count 20.7 X10*3/uL (4.8-10.8)
--- NOTE | 2024-06-08 07:00 | CA_ITS ---
Transthoracic Echocardiogram Patient (Last, First, Middle): Leann Almanzar C Gender: Female Date of : 1940 Age: 83 Procedure Date: 06/08/2024 Procedure Type: Transthoracic Echocardiogram Location[place] [facility] [place] Height: 149.86 cm Weight: 70.31 kg BSA: 1.65 m2 Heart Rate: 61 bpm BP: 131 / 61 mmHg Stonemason Helper: MARIELLE Referring MD: Shama WILLIS Symptoms: Acute CHF exacerbation Study Quality: Fair ECG Rhythm: Sinus Conclusions: - Normal left ventricular size and systolic function. There is mildly increased left ventricular wall thickness. The visually estimated ejection fraction is between 55-60%. - E/E prime ratio is >15, consistent with elevated filling pressures. - Normal right ventricular cavity size and systolic function. - The left atrium is severely dilated. - There is mild to moderate aortic valve stenosis. - There is moderate mitral annular calcification. - Normal right atrial pressure. Mild to moderate pulmonary hypertension is present. - There is a small loculated pericardial effusion overlying the left ventricle. Findings Left Ventricle Normal left ventricular size and systolic function. There is mildly increased left ventricular wall thickness. The visually estimated ejection fraction is between 55-60%. Abnormal diastolic function is noted. Spectral Doppler is indicative of a pseudonormal filling pattern. E/E prime ratio is >15, consistent with elevated filling pressures. Right Ventricle Normal right ventricular cavity size and systolic function. Atria The left atrium is severely dilated. The right atrium is mildly dilated. Aortic Valve There is moderate calcification of the aortic valve. There is mild to moderate aortic valve stenosis. The peak aortic velocity is 2.61 m/s. The mean gradient is 16 mmHg. The aortic valve area is 1.17 cm2. There is no aortic valve regurgitation. Mitral Valve There is moderate mitral annular calcification. There is no mitral valve regurgitation. There is no mitral valve stenosis. Pulmonic Valve The pulmonic valve is likely normal. Tricuspid Valve Normal tricuspid valve structure. There is trace tricuspid valve regurgitation. The right ventricular systolic pressure is 47 mmHg. Normal right atrial pressure. Mild to moderate pulmonary hypertension is present. Great Vessels All visible segments of the aorta are normal in size. The visualized portions of the pulmonary artery and branches are normal. Venous The inferior vena cava is normal in size and collapses greater than 50% with inspiration. Pericardium/Pleural Prominent epicardial adipose tissue noted. There is a small loculated pericardial effusion overlying the left ventricle. There are no definitive echocardiographic findings of tamponade physiology. Prior Study Comparison Changes noted compared to prior study dated: 09/13/2022. LVEF 55-60%. Mild to moderate , RVSP better 47 mm Hg (was 68 mm Hg before), small pericardial effusion noted. Measurements 2D Linear Measurements IVSd: 0.96 0.6-0.9/0.6-1.0 cm LVIDd: 5.10 3.9-5.3/4.2-5.9 cm LVIDd Index: 3.09 2.4-3.2/2.2-3.1 cm/m2 LVIDs: 3.59 2.0-3.6 cm LVPWd: 1.00 0.7-1.1 cm LA Diam: 4.50 2.7-3.8/3.0-4.0 cm LAIDs Index: 2.73 1.5-2.3 cm/m2 LV Mass: 227.86 67-162/88-224 g LV Mass Index: 138.10 43-95/49-115 g/m2 LVOT Diam: 2.00 3.0+(-)1.3 cm 2D Systolic Function EF 4C: 41.40 >55% EF 2C: 67.10 >55% EF BiP: 56.50 >55% Mitral Valve MV VTI: 0.44 MV Pk Gordon: 1.38 MV Mn Gordon: 0.72 MV Pk Grad: 8.00 MV Mn Grad: 3.00 MV Pk E: 1.34 MV PK A: 0.96 MV Decel Time: 270.00 E/A: 1.40 E'Lateral: 5.40 E'Medial: 3.15 E/E' Med: 42.50 E/E' Lat: 24.80 PHT: 79.00 MVA PHT: 2.78 MVA Continuity: 1.76 Decel [place]: 4.97 Aortic Valve AoV Pk Gordon: 2.61 AoV Mn Gordon: 1.86 AoV VTI: 0.66 AoV Pk Grad: 27.00 Aov Mn Grad: 16.00 YVETTE Cont.VTI: 1.17 LVOT LVOT Pk Gordon: 1.04 LVOT Mn Gordon: 0.74 LVOT VTI: 0.25 LVOT Pk Grad: 4.00 LVOT Mn Grad: 2.00 LVOT Diam: 2.00 LVOT Area: 3.14 Diastolic Function MV Pk E: 1.34 MV Pk A: 0.96 E/A: 1.40 E'Medial: 3.15 E/E' Med: 42.50 E' Laterial: 5.40 E/E' Lat: 24.80 Right Ventricle TAPSE (mm): 19.40 TVS' Gordon: 13.80 Tricuspid Valve TR Pk Gordon: 3.32 TR Pk Grad: 44.00 RA Press: 3.00 RVSP: 47.00 Great Vessels Aorta Sinus of Valsalva: 2.70 2.0-3.5 cm Ao Asc: 3.20 2.1-3.4 cm Pulmonary Valve PV Pk Gordon: 1.07 Peak PV Grad: 5.00 Updated in Other Vendor System with Status of Final Maximino Hernandez MD electronically signed on 06/08/2024 3:10:15 PM with status of Final
[2024-06-08 07:15] LABS: Anion Gap 15 (12-20); Blood Urea Nitrogen 44 mg/dL (9-16); Calcium 9.6 mg/dL (8.4-10.2); Carbon Dioxide 25 mmol/L (22-29); Chloride 104 mmol/L (96-108); Creatinine Clr Calc Pharmacy 24.3; Estimated Glomerular Filt Rate 33; Glucose Random 104 mg/dL (60-115); Potassium 3.9 mmol/L (3.3-5.1); Sodium 140 mmol/L (135-145)
[2024-06-08 07:21] LABS: B Type Natriuretic Peptide 841 pg/mL (<100)
[2024-06-08] MEDS: Albuterol/Iprat 2.5/0.5MG 3 ML AMPUL.NEB INHALE ×3 (07:27→20:07)
[2024-06-08 07:46] LABS: Glucose, Whole Blood 107 mg/dL (60-115)
[2024-06-08] MEDS: Docusate Sodium 100 MG CAPSULE PO (08:34)
[2024-06-08] MEDS: guaiFENesin DM 200/20/10 ML 10 ML SYRUP PO ×3 (08:34→21:03)
[2024-06-08] MEDS: Insulin Glargine,Hum.rec.anlog 100 UNIT/ML 10 ML VIAL 12 UNIT SUBCUT (08:34)
[2024-06-08] MEDS: Furosemide 20 MG/2 ML VIAL IVPUSH (08:34)
[2024-06-08] MEDS: Ferrous Sulfate 324 MG TABLET.DR PO ×2 (08:34→16:30)
[2024-06-08] MEDS: predniSONE 5 MG TABLET PO (08:34)
[2024-06-08] MEDS: Magnesium Oxide 400 MG TABLET PO ×2 (08:34→21:00)
[2024-06-08] MEDS: 0.9 % Sodium Chloride Flush 3 ML SYRINGE IVFLUSH ×3 (08:35→21:04)
[2024-06-08] MEDS: hydrALAZINE HCl 10 MG TABLET PO ×3 (09:01→21:00)
[2024-06-08 11:46] LABS: Glucose, Whole Blood 200 mg/dL (60-115)
[2024-06-08] MEDS: Insulin Lispro 100 UNIT/ML 3 ML VIAL SUBCUT ×3 (12:14→21:05)
[2024-06-08] MEDS: Iron Sucrose Complex 200 MG/10 ML VIAL IVPUSH (12:14)
--- NOTE | 2024-06-08 12:27 | PM.HEMONCPN ---
Medical Summary - Medical Summary Date of Service: 06/08/24 Chief complaint: None reported Primary Care Provider: Teofilo Moreno III, MD Medical Summary: Diagnosis: Chronic iron deficiency anemia Initial evaluation by Dr. Garcia in September 2013 because of worsening anemia. She was noted to have normal counts in 2006, but since about 2007 her hemoglobin showed a gradual decline to about 10 g/dL. She has also had neutrophilic leukocytosis with a white count from 11 to 14 K since about 2010. In August 2012, she had normal irono studies as well as B12 and folate levels. Hematological workup in 2013 demonstrated iron deficiency with ferritin less than 1 and transferrin saturation less than 5. She also had a history of B12 deficiency and has been on monthly B12 injection. She underwent both upper endoscopy as well as colonoscopy in December [address] Jennings and other than small high hernia, there was no evidence of celiac disease or obvious source of bleeding. Interval History Interval history: Leann Almanzar is a 83 year old lady, who presents to the ED with?worsening SOB and BRAXTON x3 days. Symptoms began approximately 2 weeks ago, though have worsened in the past 3 days. SOB particularly pronounced with exertion. She reports using her inhaler frequently during the day without much relief. Has had nonproductive cough. Denies orthopnea, PND. Also experienced increased lower leg edema. Patient previously on Lasix but has not been taking it for quite some time. Denies hematemesis or hemoptysis. No melena or hematochezia. Denies fever, chills, nausea, vomiting, abdominal pain. No chest pain/pressure, or palpitations. Of note, patient follows with Dr. Pereyra for chronic anemia. Patient has not been taking iron supplementation due to constipation. HPI: She was noted to have normal counts in 2006, but since about 2007 her hemoglobin showed a gradual decline to about 10 g/dL. She has also had neutrophilic leukocytosis with a white count from 11 to 14 K since about 2010. In August 2012, she had normal iron studies as well as B12 and folate levels. Hematological workup in 2013 demonstrated iron deficiency with ferritin less than 1 and transferrin saturation less than 5. She also had a history of B12 deficiency and has been on monthly B12 injection. In the ED pt was tachycardic up to 97, tachypneic up to 26, and with variable BP as low as 131/44, and desatting into the 80s on RA. Labs were significant for leukocytosis 16.3, H&H 6.3/21.1, sodium 147, BUN 27, lactic acid 2.6, and BNP 753. Renal function around baseline. Hepatic function WNL. Stool negative for occult blood. Tested negative for flu, RSV, and COVID. CXR showed streaky opacity in the retrocardiac region of right lung base possibly reflecting atelectasis or infectious/inflammatory process. EKG demonstrated sinus bradycardia with LBBB, similar to previous. Pt was treated with DuoNebs, Solu-Medrol and doxycycline. Pt will be admitted to the hospital acute hypoxic respiratory failure in the setting of anemia of chronic disease and acute CHF exacerbation. Review of Systems - Neurologic Reports no additional neurologic complaints PMFSH Medical History: Medical History (Last Reviewed 06/07/24 @ 00:19 by Darin Flores RN) Arthritis Bacteremia due to Streptococcus pneumoniae Benign paroxysmal positional vertigo COPD (chronic obstructive pulmonary disease) Cough Hypoxia Restrictive lung disease Rheumatoid arthritis Functional capacity: uses cane/walker Family History: Family History (Last Reviewed 06/07/24 @ 00:19 by Darin Flores RN) Mother Diabetes Maternal Grandmother Diabetes Surgical History: Surgical History (Last Reviewed 06/07/24 @ 00:19 by Darin Flores RN) Hx of cholecystectomy Social History: Social History (Last Reviewed 06/07/24 @ 00:19 by Darin Flores RN) Living Situation History: Household Members: Children Housing: Apartment Are you a primary home health care provider to a significant other at home: No Do you presently have visiting nurse or other home services: Yes Alcohol History Details: 1. How often do you have a drink containing alcohol?: a. Never AUDIT-C Alcohol total score: 0 Currently Displaying Signs/Symptoms of Alcohol Withdrawal: No Tobacco History: Patient Tobacco Use Status: Never used Tobacco Cigarette Packs Per Day: 1 Smoked in Last 30 Days: No Substance Use History: Use of substances other than those prescribed or required for medical reasons: No Currently Displaying Signs/Symptoms of Drug Intoxication Withdrawal: No Domestic Abuse History: Have you been hit, kicked, punched, or otherwise hurt by someone within the past year? If so, by whom?: No Do you feel safe in your current relationship?: No Current Relationship Is there a partner from a previous relationship who is making you feel unsafe now?: No Are you made to feel afraid or neglected: No Advance Directives: Advance Directives: No Advance Directives Information Provided: No Homicidal Assessment: Do you have a plan to hurt others: No Plan Nutrition Assessment: Recently lost weight without trying: No How much weight loss: Not applicable Eating poorly because of decreased appetite: No Nutrition screen score: 0 Nutrition Risks: No Nutritional Risk Patient : No : No Poor oral hygiene: No Occupation Assessmet: service: No Current occupational status: unemployed Home Medications and Allergies Current Medications: Current Medications Acetaminophen (Acetaminophen 325 Mg Tablet) 650 mg PO Q6H PRN PRN Reason: Pain, Mild (Pain Scale 1-3), fever or headache Albuterol/Ipratropium (Albuterol/Iprat 2.5/0.5mg 3 Ml Ampul.Neb) 3 ml INHALE RQ6H WHILE AWAKE [facility] [place] Last Admin: 06/08/24 07:27 Dose: 3 ml Calcium Carbonate (Calcium Carbonate 750 Mg Tab.Chew) 750 mg PO Q4H PRN PRN Reason: Heartburn Docusate Sodium (Docusate Sodium 100 Mg Capsule) 100 mg PO DAILY [facility] [place] Last Admin: 06/08/24 08:34 Dose: 100 mg Ferrous Sulfate (Ferrous Sulfate 324 Mg Tablet.Dr) 324 mg PO BIDWM [facility] [place] Last Admin: 06/08/24 08:34 Dose: 324 mg Furosemide (Furosemide 20 Mg/2 Ml Vial) 20 mg IVPUSH DAILY [facility] [place]; Protocol Last Admin: 06/08/24 08:34 Dose: 20 mg Glucose (Glucose Gel 15 Gm Gel..Gram.) 15 gm PO Q15M PRN; Protocol PRN Reason: per Hypoglycemia Standing Ord. Guaifenesin/Dextromethorphan (Guaifenesin Dm 200/20/10 Ml 10 Ml Syrup) 10 ml PO TID [facility] [place] Last Admin: 06/08/24 08:34 Dose: 10 ml Hydralazine HCl (Hydralazine Hcl 10 Mg Tablet) 10 mg PO TID [facility] [place]; Protocol Last Admin: 06/08/24 09:01 Dose: 10 mg Dextrose (D10) 250 mls @ 750 mls/hr IV Q15M PRN; Protocol PRN Reason: per Hypoglycemia Standing Ord. Insulin Glargine (Insulin Glargine,Hum.Rec.Anlog 100 Unit/Ml 10 Ml Vial) 12 unit SUBCUT DAILY [facility] [place] Last Admin: 06/08/24 08:34 Dose: 12 unit Insulin Human Lispro (Insulin Lispro 100 Unit/Ml 3 Ml Vial) 0 unit SUBCUT QIDACHS [facility] [place]; Protocol Last Admin: 06/08/24 12:14 Dose: 2 unit Magnesium Hydroxide (Milk Of Magnesia 30 Ml Oral.Susp) 30 ml PO DAILY PRN PRN Reason: Constipation Magnesium Oxide (Magnesium Oxide 400 Mg Tablet) 400 mg PO BID [facility] [place] Last Admin: 06/08/24 08:34 Dose: 400 mg Melatonin (Melatonin 3 Mg Tablet) 6 mg PO BEDTIME PRN PRN Reason: Insomnia Omeprazole (Omeprazole 20 Mg Capsule.Dr) 20 mg PO DAILY@06 [facility] [place] Last Admin: 06/08/24 06:17 Dose: 20 mg Ondansetron HCl (Ondansetron Hcl 4 Mg/2 Ml Vial) 4 mg IVPUSH Q8H PRN PRN Reason: Nausea and Vomiting Pravastatin Sodium (Pravastatin Sodium 20 Mg Tablet) 20 mg PO BEDTIME [facility] [place] Last Admin: 06/07/24 20:53 Dose: 20 mg Prednisone (Prednisone 5 Mg Tablet) 5 mg PO DAILY [facility] [place] Last Admin: 06/08/24 08:34 Dose: 5 mg Sodium Chloride (0.9 % Sodium Chloride Flush 3 Ml Syringe) 3 ml IVFLUSH QSHIFT [facility] [place] Last Admin: 06/08/24 08:35 Dose: 3 ml Verapamil HCl (Verapamil Hcl Sr 240 Mg Tablet.Er) 240 mg PO BEDTIME [facility] [place]; Protocol Last Admin: 06/07/24 20:53 Dose: 240 mg Home Medications ?Medication ?Instructions ?Recorded ?Confirmed ?Type aspirin 81 mg tablet,delayed 81 mg PO DAILY 06/15/20 06/06/24 History release blood sugar diagnostic #10 ea 06/15/20 02/05/24 History inhalat.spacing dev,large mask #1 ea 06/15/20 02/05/24 History lancets 30 gauge #100 ea 06/15/20 02/05/24 History magnesium oxide 400 mg (241.3 mg 400 mg PO BID 06/15/20 06/06/24 History magnesium) tablet omeprazole 20 mg capsule,delayed 20 mg PO DAILY@0630 06/15/20 06/06/24 History release blood sugar diagnostic (FreeStyle 02/08/23 02/05/24 History Lite Strips) insulin glargine 100 unit/mL 16 unit subcut DAILY@0900 02/08/23 06/06/24 History subcutaneous solution (Lantus U-100 Insulin) dextromethorphan-guaifenesin 10 10 ml PO Q4-6H PRN Cough 06/06/24 06/06/24 History mg-100 mg/5 mL oral syrup docusate sodium 100 mg capsule 100 mg PO DAILY 06/06/24 06/06/24 History hydralazine 10 mg tablet 10 mg PO TID 06/06/24 06/06/24 History insulin aspart U-100 100 unit/mL See Protocol subcut TIDWM 06/06/24 06/06/24 History (3 mL) subcutaneous pen (Novolog FlexPen U-100 Insulin aspart) losartan 25 mg tablet 25 mg PO DAILY 06/06/24 06/06/24 History pravastatin 20 mg tablet 20 mg PO BEDTIME 06/06/24 06/06/24 History prednisone 2.5 mg tablet 5 mg PO DAILY 06/06/24 06/06/24 History verapamil 240 mg tablet,extended 240 mg PO BEDTIME 06/06/24 06/06/24 History release Allergies Allergy/AdvReac Type Severity Reaction Status Date / Time latex [LATEX] Allergy Unknown RASH Verified 06/06/24 11:41 pineapple [PINEAPPLE] Allergy Unknown HIVES Verified 06/06/24 11:41 enalaprilat [From Vasotec] AdvReac Mild Unknown Verified 06/06/24 11:41 Exam Vital signs: Vital Signs Temp 97.7 F 06/08/24 11:35 Pulse 59 06/08/24 11:35 Resp 20 06/08/24 11:35 BP 153/72 H 06/08/24 11:35 Pulse Ox 98 06/08/24 11:35 O2 Del Method Nasal Cannula 06/08/24 11:35 O2 Flow Rate 2 06/08/24 11:35 Intake & Output 06/07/24 06/08/24 06/08/24 18:59 06:59 18:59 Intake Total 600 / 710 110 / 710 Output Total 500 / 1300 800 / 1300 Balance 100 / -590 -690 / -590 Urine Output (Average ml/kg/hr) 0.59 0.95 0.95 Intake: Intake, Oral Amount 600 / 710 110 / 710 Output: Output, Urine Amount 500 / 1300 800 / 1300 Other: Breakfast % Eaten 75% Lunch % Eaten 75% Eating (Feeding) Ability Independent Urine purewick Urine Color Yellow Last Bowel Movement 06/05/24 Weight 70.307 kg BMI result Body Mass Index 31.3 - Constitutional Present: moderate distress - Routine HEENT Exam Head: Present: normal inspection, normocephalic Data - Labs CBC & Chem 7: 06/08/24 06:19 06/08/24 06:19 Labs: Laboratory Last Values WBC 20.7 X10*3/uL (4.8-10.8) H 06/08/24 06:19 RBC 3.64 X10*6/uL (4.20-5.50) L 06/08/24 06:19 Hgb 8.9 g/dl (12.0-16.0) L 06/08/24 06:19 Hct 28.2 % (37.0-47.0) L 06/08/24 06:19 MCV 77.5 fL (80.0-98.0) L 06/08/24 06:19 MCH 24.5 pg (27.0-33.0) L 06/08/24 06:19 MCHC 31.6 g/dl (31.0-35.0) 06/08/24 06:19 RDW 17.5 % (11.0-16.0) H 06/08/24 06:19 Plt Count 311 X10*3/uL (160-400) 06/08/24 06:19 MPV 10.7 fL (9.4-12.3) 06/08/24 06:19 Immature Gran % (Auto) 0.4 % (0.0-0.4) 06/06/24 13:07 Neut % (Auto) 55.2 % (45-73) 06/06/24 13:07 Lymph % (Auto) 33.8 % (20-40) 06/06/24 13:07 [place] % (Auto) 7.1 % (2-11) 06/06/24 13:07 Eos % (Auto) 3.0 % (0-4) 06/06/24 13:07 Baso % (Auto) 0.5 % (0-2) 06/06/24 13:07 Lymph # (Auto) 5.5 X10*3/uL (1.2-4.9) H 06/06/24 13:07 [place] # (Auto) 1.2 X10*3/uL (0.1-1.2) 06/06/24 13:07 Eos # (Auto) 0.5 X10*3/uL (0.0-0.4) H 06/06/24 13:07 Baso # (Auto) 0.1 X10*3/uL (0.0-0.2) 06/06/24 13:07 Abs Immat Gran (auto) 0.07 X10*3/uL (0.00-0.03) H 06/06/24 13:07 Absolute Neuts (auto) 9.0 x10*3/uL (2.0-8.3) H 06/06/24 13:07 Absolute Nucleated RBC 0.000 X10*3/uL (0.0-0.012) 06/08/24 06:19 Nucleated RBC % (auto) 0.0 /100WBC (0.0-0.2) 06/08/24 06:19 Smear Tech's Comments VERIFIED 06/06/24 13:07 Smear Path Review SEE NOTE 06/06/24 13:07 PT 11.1 SEC (10.9-12.4) 06/06/24 13:07 INR 1.0 (0.9-1.1) 06/06/24 13:07 Sodium 140 mmol/L (135-145) 06/08/24 06:19 Potassium 3.9 mmol/L (3.3-5.1) 06/08/24 06:19 Chloride 104 mmol/L (96-108) 06/08/24 06:19 Carbon Dioxide 25 mmol/L (22-29) 06/08/24 06:19 Anion Gap 15 (12-20) 06/08/24 06:19 BUN 44 mg/dL (9-16) H 06/08/24 06:19 Creatinine 1.52 mg/dL (0.5-1.4) H 06/08/24 06:19 Estim Creat Clear Calc 24.3 06/08/24 06:19 Estimated GFR 33 06/08/24 06:19 POC Glucose 200 mg/dL (60-115) H 06/08/24 11:41 Random Glucose 104 mg/dL (60-115) 06/08/24 06:19 Lactic Acid 2.6 mmol/L (0.5-2.0) H* 06/06/24 13:07 Lactic Acid F/U @ 2Hr 3.7 mmol/L (0.5-2.0) H* 06/06/24 16:25 Calcium 9.6 mg/dL (8.4-10.2) 06/08/24 06:19 Magnesium 2.1 mg/dL (1.6-2.6) 06/07/24 06:49 Iron 17 mcg/dL (30-160) L 06/06/24 13:07 TIBC 316 mcg/dL (228-428) 06/06/24 13:07 % Saturation 5 % (15-50) L 06/06/24 13:07 Unsat Iron Binding 299 ug/dL 06/06/24 13:07 Total Bilirubin 0.5 mg/dL (0.0-1.0) 06/06/24 13:07 AST 28 U/L (5-31) 06/06/24 13:07 ALT 13 U/L (0-31) 06/06/24 13:07 Alkaline Phosphatase 64 U/L (39-117) 06/06/24 13:07 B-Natriuretic Peptide 841 pg/mL (<100) H 06/08/24 06:19 Total Protein 6.4 g/dL (6.5-8.0) L 06/06/24 13:07 Albumin 3.6 g/dL (3.5-5.0) 06/06/24 13:07 Vitamin B12 372 pg/mL (200-900) 06/07/24 06:49 Folate 8.9 ng/mL (> or = 4.0) 06/07/24 06:49 Urine Color Yellow 06/06/24 23:59 Urine Appearance Clear 06/06/24 23:59 Urine pH 5.0 (5.0-9.0) 06/06/24 23:59 Ur Specific [place] 1.015 (1.005-1.025) 06/06/24 23:59 Urine Protein 30 (1+) mg/dL (Neg-Trace) H 06/06/24 23:59 Urine Glucose (UA) >=1000 mg/dL (Negative) H 06/06/24 23:59 Urine Ketones Trace mg/dL (Negative) 06/06/24 23:59 Urine Blood Negative (Negative) 06/06/24 23:59 Urine Nitrite Negative (Negative) 06/06/24 23:59 Ur Leukocyte Esterase Negative (Negative) 06/06/24 23:59 Urine RBC 0-2 /HPF (0-2) 06/06/24 23:59 Urine WBC 0-5 /HPF (0-5) 06/06/24 23:59 Ur Squamous Epith Cells 0-2 /HPF (0-2) 06/06/24 23:59 Urine Bacteria None Seen (None Seen) 06/06/24 23:59 Hyaline Casts 0-2 /LPF (0-2) 06/06/24 23:59 Stool Occult Blood NEGATIVE (NEGATIVE) 06/06/24 14:09 Influenza Type A (PCR) NEGATIVE (Negative) 06/06/24 13:07 Influenza Type B (PCR) NEGATIVE (Negative) 06/06/24 13:07 RSV RNA Qual (PCR) NEGATIVE (Negative) 06/06/24 13:07 SARS-CoV-2 RNA (RT-PCR) NEGATIVE (Negative) 06/06/24 13:07 Blood Type A Positive 06/06/24 14:09 Antibody Screen NEGATIVE 06/06/24 14:09 Crossmatch See Detail 06/06/24 14:09 - Imaging Radiologist's impression: ITS Impressions Chest X-Ray 06/06/24 11:42 IMPRESSION: Streaky opacity in the retrocardiac region and right lung base, which may represent atelectasis or infectious/inflammatory process. Electronically signed by: Denise Brantley MD 06/06/2024 01:45 PM [facility] [place] Assessment and Plan Patient Active problem list reviewed?: Yes (1) Anemia Status: Acute Assessment and plan: 83-year-old lady with iron deficiency anemia and history of B12 deficiency. She stopped oral iron supplementation because of constipation. She also gets vitamin B12 injections at home once a month. She received parenteral iron therapy in February 2021. She presents with worsening Anemia. with Hgb of 6.3/Hct 21. CML ruled out on the basis of flow cytometry and negative BCR/ABL on bood. She received 2 units PRBC. She has developed recurrent iron deficiency anemia, anemia of chronic kidney disease is also contributing. She should be started back on iron, administer Venofer 200 mg IV x1 today. I have advised the patient to follow up in Hematology Clinic upon discharge. - Time Spent With Patient Time Spent with Patient (in minutes): 10 Additional Coding: - Additional E/M codes Complex E/M visit Add On: CPT G2211
--- NOTE | 2024-06-08 12:30 | MHC.CM.PN ---
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
--- NOTE | 2024-06-08 15:28 | HO.PM.IMPN ---
Subjective Subjective Date of Service: 06/08/24 Interval History: Feeling better shortness of breaths significant improved since admission, denies chest pain, no lightheadedness, no dizziness, not on home oxygen, no acute events overnight Tolerating diet. Review of Systems All other symptoms are reviewed and are negative. Physical Exam Vital Signs: Vital Signs: Last Vital Signs Temp 99.2 F 06/08/24 15:16 Pulse 100 06/08/24 15:16 Resp 20 06/08/24 15:16 BP 115/56 L 06/08/24 15:16 Pulse Ox 96 06/08/24 15:16 O2 Del Method Nasal Cannula 06/08/24 15:16 O2 Flow Rate 2 06/08/24 15:16 BMI result Body Mass Index 31.3 Const: Other: Gen: in no acute distress HEENT: sclera anicteric, moist mucus membranes Neck: supple, no JVD Lungs: Diminished breath sounds few expiratory wheeze at bases, no crackles Heart: regular rate and rhythm, no murmurs Abd: soft, non-tender, non-distended Ext: mild edema improved since yesterday Skin: warm/well-perfused Neuro: alert and oriented x3, no focal findings Psych: appropriate affect Objective Data Active Medications Acetaminophen (Acetaminophen 325 Mg Tablet) 650 mg PO Q6H PRN PRN Reason: Pain, Mild (Pain Scale 1-3), fever or headache Albuterol/Ipratropium (Albuterol/Iprat 2.5/0.5mg 3 Ml Ampul.Neb) 3 ml INHALE RQ6H WHILE AWAKE [facility] [place] Last Admin: 06/08/24 13:09 Dose: 3 ml Documented By: ABDIRIZAK Calcium Carbonate (Calcium Carbonate 750 Mg Tab.Chew) 750 mg PO Q4H PRN PRN Reason: Heartburn Docusate Sodium (Docusate Sodium 100 Mg Capsule) 100 mg PO DAILY [facility] [place] Last Admin: 06/08/24 08:34 Dose: 100 mg Documented By: MANISHA Ferrous Sulfate (Ferrous Sulfate 324 Mg Tablet.) 324 mg PO BIDWM [facility] [place] Last Admin: 06/08/24 08:34 Dose: 324 mg Documented By: MANISHA Furosemide (Furosemide 20 Mg/2 Ml Vial) 20 mg IVPUSH DAILY [facility] [place]; Protocol Last Admin: 06/08/24 08:34 Dose: 20 mg Documented By: MANISHA Glucose (Glucose Gel 15 Gm Gel..Gram.) 15 gm PO Q15M PRN; Protocol PRN Reason: per Hypoglycemia Standing Ord. Guaifenesin/Dextromethorphan (Guaifenesin Dm 200/20/10 Ml 10 Ml Syrup) 10 ml PO TID [facility] [place] Last Admin: 06/08/24 08:34 Dose: 10 ml Documented By: MANISHA Hydralazine HCl (Hydralazine Hcl 10 Mg Tablet) 10 mg PO TID [facility] [place]; Protocol Last Admin: 06/08/24 09:01 Dose: 10 mg Documented By: MANISHA Dextrose (D10) 250 mls @ 750 mls/hr IV Q15M PRN; Protocol PRN Reason: per Hypoglycemia Standing Ord. Insulin Glargine (Insulin Glargine,Hum.Rec.Anlog 100 Unit/Ml 10 Ml Vial) 12 unit SUBCUT DAILY [facility] [place] Last Admin: 06/08/24 08:34 Dose: 12 unit Documented By: MANISHA Insulin Human Lispro (Insulin Lispro 100 Unit/Ml 3 Ml Vial) 0 unit SUBCUT QIDACHS [facility] [place]; Protocol Last Admin: 06/08/24 12:14 Dose: 2 unit Documented By: MANISHA Magnesium Hydroxide (Milk Of Magnesia 30 Ml Oral.Susp) 30 ml PO DAILY PRN PRN Reason: Constipation Magnesium Oxide (Magnesium Oxide 400 Mg Tablet) 400 mg PO BID [facility] [place] Last Admin: 06/08/24 08:34 Dose: 400 mg Documented By: MANISHA Melatonin (Melatonin 3 Mg Tablet) 6 mg PO BEDTIME PRN PRN Reason: Insomnia Omeprazole (Omeprazole 20 Mg Capsule.Dr) 20 mg PO DAILY@0630 [facility] [place] Last Admin: 06/08/24 06:17 Dose: 20 mg Documented By: SYED Ondansetron HCl (Ondansetron Hcl 4 Mg/2 Ml Vial) 4 mg IVPUSH Q8H PRN PRN Reason: Nausea and Vomiting Pravastatin Sodium (Pravastatin Sodium 20 Mg Tablet) 20 mg PO BEDTIME [facility] [place] Last Admin: 06/07/24 20:53 Dose: 20 mg Documented By: SYED Prednisone (Prednisone 5 Mg Tablet) 5 mg PO DAILY [facility] [place] Last Admin: 06/08/24 08:34 Dose: 5 mg Documented By: MANISHA Sodium Chloride (0.9 % Sodium Chloride Flush 3 Ml Syringe) 3 ml IVFLUSH QSHIFT [facility] Last Admin: 06/08/24 08:35 Dose: 3 ml Documented By: MANISHA Verapamil HCl (Verapamil Hcl Sr 240 Mg Tablet.Er) 240 mg PO BEDTIME [facility]; Protocol Last Admin: 06/07/24 20:53 Dose: 240 mg Documented By: SYED Labs 06/08/24 06:19 06/08/24 06:19 Labs: Laboratory Results - last 24 hr 06/06/24 06/07/24 06/07/24 13:07 16:42 20:40 MCV MCH MCHC RDW Plt Count MPV Absolute Nucleated RBC Nucleated RBC % (auto) Smear Path Review SEE NOTE Anion Gap Estim Creat Clear Calc Estimated GFR POC Glucose 128 H 167 H Random Glucose Calcium B-Natriuretic Peptide 06/08/24 06/08/24 06/08/24 06:19 07:42 11:41 MCV 77.5 L MCH 24.5 L MCHC 31.6 RDW 17.5 H Plt Count 311 MPV 10.7 Absolute Nucleated RBC 0.000 Nucleated RBC % (auto) 0.0 Smear Path Review Anion Gap 15 Estim Creat Clear Calc 24.3 Estimated GFR 33 POC Glucose 107 200 H Random Glucose 104 Calcium 9.6 B-Natriuretic Peptide 841 H Microbiology Microbiology Results: Microbiology 06/06/24 13:17 Blood Culture - Preliminary Blood - Venous No growth after 48 hours. 06/06/24 13:29 Blood Culture - Preliminary Blood - Venous No growth after 24 hours. Assessment and Plan (1) Hypoxia: Status: Acute (2) CHF exacerbation: Status: Acute Plan 83-year-old female with a PMH significant for?Asthma/COPD, HTN, insulin-dependent type 2 diabetes, HFpEF, severe pulmonary hypertension, RA on chronic prednisone, chronic anemia, and HLD who presents to the ED with?worsening SOB and BRAXTON x3 days. Pt will be admitted to the hospital acute hypoxic respiratory failure in the setting of anemia of chronic disease and acute CHF exacerbation. Symptomatic anemia H&H 6.3/21.1 (last labs 11.8/37.6 on 08/09), Likely anemia of chronic disease secondary to CKD3 No hemoptysis, hematemesis, melena, or hematochezia; stool negative for occult blood Iron low at 17, saturation low at 5%, TIBC WNL patient has stopped taking iron supplementation quite a while ago due to constipation, normal B12 and folate Received 2 units of packed RBC hematocrit improved to 28.[address] Pereyra will transfuse IV iron x1 and continue oral supplement Acute hypoxic respiratory failure in the setting of HFpEF exacerbation Shortness of breath improved, BNP 753 , not using home diuretics Echocardiogram 09/13/2022 showed LVEF 50-55%, moderate aortic valve stenosis, and severe pulmonary hypertension Continue Lasix 20mg IV daily ,1 liter neg Echocardiogram showed EF 55 to 60%, [id number] aortic valve stenosis, small loculated pericardial effusion overlying the left ventricle, abnormal diastolic function. Monitor I/O, daily weights, lytes/mag Titrate supplemental O2>92, wean as tolerated, not on home O2 Chronic kidney disease stage 3 Creatinine remains unchanged since yesterday at 1.5 continue diuretics and follow BMP Acute lactic acidosis Lactic acid 2.6 with repeat 3.7 Secondary to hypoxia, not sepsis, Does not meet SIRS criteria: CXR not convincing for pneumonia, no fever or productive cough Leukocytosis chronically elevated secondary to chronic steroid use; tachycardia and tachypnea secondary to anemia Clinically pt appear stable and non-toxic, seen by showroom salesperson in the past BCR/ABL negative Asthma/COPD overlap syndrome No acute exacerbation continue cough medication and DuoNeb HTN Resume home medication hydralazine and verapamil hold losartan due to RA Continue chronic prednisone GERD Continue PPI Full Code DVT Prophylaxis: Pneumatic boots due to anemia Pt will require continued inpatient hospitalization for treatment of acute hypoxic respiratory failure requiring IV diuretics and close monitoring of H&H. Quality Stroke Does the patient have a stroke diagnosis?: No VTE Prior VTE?: No VTE Risk Level:: Medical - moderate - high VTE Device Contraindication: N/A - Device Ordered VTE Drug Contraindication: Treatment Not Indicated
[2024-06-08 16:23] LABS: Glucose, Whole Blood 281 mg/dL (60-115)
[2024-06-08] MEDS: Milk of Magnesia 30 ML ORAL.SUSP PO (16:30)
[2024-06-08 20:02] LABS: Glucose, Whole Blood 190 mg/dL (60-115)
[2024-06-08] MEDS: Pravastatin Sodium 20 MG TABLET PO (21:00)
[2024-06-08] MEDS: VerapamiL HCL SR 240 MG TABLET.ER PO (21:02)
[2024-06-09] VITALS (14 sets, daily range): BP systolic 112–166; BP diastolic 58–74; PULSE 66–90; RESP 16–28; TEMP 36.2–37.4; O2SAT 92–98
[2024-06-09] MEDS: Omeprazole 20 MG CAPSULE.DR PO (05:21)
[2024-06-09 07:13] LABS: Glucose, Whole Blood 92 mg/dL (60-115)
[2024-06-09 07:42] LABS: Hematocrit 30.6 % (37.0-47.0); Hemoglobin 9.6 g/dl (12.0-16.0); Mean Corpuscular HGB Conc 31.4 g/dl (31.0-35.0); Mean Corpuscular Hemoglobin 24.7 pg (27.0-33.0); Mean Corpuscular Volume 78.9 fL (80.0-98.0); Mean Platelet Volume 10.3 fL (9.4-12.3); Platelet Count 310 X10*3/uL (160-400); Red Blood Count 3.88 X10*6/uL (4.20-5.50); Red Cell Distribution Width 18.2 % (11.0-16.0); White Blood Count 18.4 X10*3/uL (4.8-10.8)
[2024-06-09] MEDS: Ferrous Sulfate 324 MG TABLET.DR PO ×2 (07:51→16:17)
[2024-06-09] MEDS: hydrALAZINE HCl 10 MG TABLET PO ×3 (07:51→22:17)
[2024-06-09] MEDS: Furosemide 20 MG/2 ML VIAL IVPUSH ×3 (07:51→17:24)
[2024-06-09] MEDS: Insulin Glargine,Hum.rec.anlog 100 UNIT/ML 10 ML VIAL 12 UNIT SUBCUT (07:51)
[2024-06-09] MEDS: guaiFENesin DM 200/20/10 ML 10 ML SYRUP PO ×3 (07:51→22:17)
[2024-06-09] MEDS: Docusate Sodium 100 MG CAPSULE PO (07:51)
[2024-06-09] MEDS: predniSONE 5 MG TABLET PO (07:51)
[2024-06-09] MEDS: Magnesium Oxide 400 MG TABLET PO ×2 (07:51→22:17)
[2024-06-09] MEDS: 0.9 % Sodium Chloride Flush 3 ML SYRINGE IVFLUSH ×3 (07:52→22:20)
[2024-06-09 07:57] LABS: Anion Gap 14 (12-20); Blood Urea Nitrogen 39 mg/dL (9-16); Calcium 10.4 mg/dL (8.4-10.2); Carbon Dioxide 29 mmol/L (22-29); Chloride 102 mmol/L (96-108); Estimated Glomerular Filt Rate 35; Glucose Random 100 mg/dL (60-115); Potassium 4.2 mmol/L (3.3-5.1); Sodium 141 mmol/L (135-145)
[2024-06-09] MEDS: Albuterol/Iprat 2.5/0.5MG 3 ML AMPUL.NEB INHALE ×3 (09:25→21:55)
[2024-06-09 11:04] LABS: Glucose, Whole Blood 191 mg/dL (60-115)
[2024-06-09] MEDS: Insulin Lispro 100 UNIT/ML 3 ML VIAL SUBCUT ×3 (11:23→22:17)
[2024-06-09] MEDS: Milk of Magnesia 30 ML ORAL.SUSP PO (16:16)
[2024-06-09 16:17] LABS: Glucose, Whole Blood 284 mg/dL (60-115)
--- NOTE | 2024-06-09 16:20 | P.PNIM_ITS ---
Subjective Subjective Date of Service: 06/10/24 Interval History: Complaining of shortness of breath , and cough productive white phlegm, symptoms started since last evening, denies fever, no chills. No chest pain, no palpitations, tolerating diet. Review of Systems All other symptoms are reviewed and are negative Physical Exam 2 Vital Signs: Vital Signs: Last Vital Signs Temp 97.2 F 06/09/24 15:40 Pulse 70 06/09/24 15:40 Resp 20 06/09/24 15:40 BP 134/59 L 06/09/24 15:40 Pulse Ox 94 06/09/24 15:40 O2 Del Method Nasal Cannula 06/09/24 15:40 O2 Flow Rate 2 06/09/24 15:40 BMI result Body Mass Index 31.3 Const: Other: Gen: in mild respiratory distress with coughing and shortness of breath HEENT: sclera anicteric, moist mucus membranes Neck: supple, no JVD Lungs: Bilateral expiratory rhonchi, no crackles, no use of accessory muscles Heart: regular rate and rhythm, no murmurs Abd: soft, non-tender, non-distended Ext: mild edema improved since yesterday Skin: warm/well-perfused Neuro: alert and oriented x3, no focal findings Psych: appropriate affect Objective Data Active Medications Acetaminophen (Acetaminophen 325 Mg Tablet) 650 mg PO Q6H PRN PRN Reason: Pain, Mild (Pain Scale 1-3), fever or headache Albuterol/Ipratropium (Albuterol/Iprat 2.5/0.5mg 3 Ml Ampul.Neb) 3 ml INHALE RQ6H WHILE AWAKE [facility] Last Admin: 06/09/24 13:58 Dose: 3 ml Documented By: MEEK Calcium Carbonate (Calcium Carbonate 750 Mg Tab.Chew) 750 mg PO Q4H PRN PRN Reason: Heartburn Docusate Sodium (Docusate Sodium 100 Mg Capsule) 100 mg PO DAILY [facility] Last Admin: 06/09/24 07:51 Dose: 100 mg Documented By: MANISHA Ferrous Sulfate (Ferrous Sulfate 324 Mg Tablet.) 324 mg PO BIDWM [facility] Last Admin: 06/09/24 07:51 Dose: 324 mg Documented By: MANISHA Furosemide (Furosemide 20 Mg/2 Ml Vial) 20 mg IVPUSH DAILY [facility]; Protocol Last Admin: 06/09/24 07:51 Dose: 20 mg Documented By: MANISHA Glucose (Glucose Gel 15 Gm Gel..Gram.) 15 gm PO Q15M PRN; Protocol PRN Reason: per Hypoglycemia Standing Ord. Guaifenesin/Dextromethorphan (Guaifenesin Dm 200/20/10 Ml 10 Ml Syrup) 10 ml PO TID [facility] Last Admin: 06/09/24 07:51 Dose: 10 ml Documented By: MANISHA Hydralazine HCl (Hydralazine Hcl 10 Mg Tablet) 10 mg PO TID [facility]; Protocol Last Admin: 06/09/24 07:51 Dose: 10 mg Documented By: MANISHA Dextrose (D10) 250 mls @ 750 mls/hr IV Q15M PRN; Protocol PRN Reason: per Hypoglycemia Standing Ord. Insulin Glargine (Insulin Glargine,Hum.Rec.Anlog 100 Unit/Ml 10 Ml Vial) 12 unit SUBCUT DAILY [facility] Last Admin: 06/09/24 07:51 Dose: 12 unit Documented By: MANISHA Insulin Human Lispro (Insulin Lispro 100 Unit/Ml 3 Ml Vial) 0 unit SUBCUT QIDACHS [facility]; Protocol Last Admin: 06/09/24 11:23 Dose: 2 unit Documented By: MANISHA Magnesium Hydroxide (Milk Of Magnesia 30 Ml Oral.Susp) 30 ml PO DAILY PRN PRN Reason: Constipation Last Admin: 06/08/24 16:30 Dose: 30 ml Documented By: MANISHA Magnesium Oxide (Magnesium Oxide 400 Mg Tablet) 400 mg PO BID [facility] Last Admin: 06/09/24 07:51 Dose: 400 mg Documented By: MANISHA Melatonin (Melatonin 3 Mg Tablet) 6 mg PO BEDTIME PRN PRN Reason: Insomnia Omeprazole (Omeprazole 20 Mg Capsule.Dr) 20 mg PO DAILY@0630 [facility] Last Admin: 06/09/24 05:21 Dose: 20 mg Documented By: LANDON Ondansetron HCl (Ondansetron Hcl 4 Mg/2 Ml Vial) 4 mg IVPUSH Q8H PRN PRN Reason: Nausea and Vomiting Pravastatin Sodium (Pravastatin Sodium 20 Mg Tablet) 20 mg PO BEDTIME [facility] Last Admin: 06/08/24 21:00 Dose: 20 mg Documented By: LANDON Prednisone (Prednisone 5 Mg Tablet) 5 mg PO DAILY [facility] Last Admin: 06/09/24 07:51 Dose: 5 mg Documented By: MANISHA Sodium Chloride (0.9 % Sodium Chloride Flush 3 Ml Syringe) 3 ml IVFLUSH QSHIFT [facility] Last Admin: 06/09/24 07:52 Dose: 3 ml Documented By: MANISHA Verapamil HCl (Verapamil Hcl Sr 240 Mg Tablet.Er) 240 mg PO BEDTIME [facility]; Protocol Last Admin: 06/08/24 21:02 Dose: 240 mg Documented By: LANDON Labs 06/09/24 07:30 06/10/24 06:30 Labs: Laboratory Results - last 24 hr 06/08/24 06/08/24 06/09/24 16:13 19:56 07:08 MCV MCH MCHC RDW Plt Count MPV Absolute Nucleated RBC Nucleated RBC % (auto) Anion Gap Estim Creat Clear Calc Estimated GFR POC Glucose 281 H 190 H 92 Random Glucose Calcium 06/09/24 06/09/24 06/09/24 07:30 11:00 16:09 MCV 78.9 L MCH 24.7 L MCHC 31.4 RDW 18.2 H Plt Count 310 MPV 10.3 Absolute Nucleated RBC 0.000 Nucleated RBC % (auto) 0.0 Anion Gap 14 Estim Creat Clear Calc 26.0 Estimated GFR 35 POC Glucose 191 H 284 H Random Glucose 100 Calcium 10.4 H D Microbiology Microbiology Results: Microbiology 06/06/24 13:29 Blood Culture - Preliminary Blood - Venous No growth after 48 hours. 06/06/24 13:17 Blood Culture - Preliminary Blood - Venous No growth after 48 hours. Assessment and Plan (1) Hypoxia: Status: Acute (2) CHF exacerbation: Status: Acute (3) COPD exacerbation: Status: Acute (4) Pneumonia: Status: Acute Plan 83-year-old female with a PMH significant for?Asthma/COPD, HTN, insulin- dependent type 2 diabetes, HFpEF, severe pulmonary hypertension, RA on chronic prednisone, chronic anemia, and HLD who presents to the ED with?worsening SOB and BRAXTON x3 days. Pt will be admitted to the hospital acute hypoxic respiratory failure in the setting of anemia of chronic disease and acute CHF exacerbation. Symptomatic anemia H&H 6.3/21.1 (last labs 11.8/37.6 on 1/12), Likely anemia of chronic disease secondary to CKD3 No hemoptysis, hematemesis, melena, or hematochezia; stool negative for occult blood Iron low at 17, saturation low at 5%, TIBC WNL patient has stopped taking iron supplementation quite a while ago due to constipation, normal B12 and folate Received 2 units of packed RBC hematocrit improved to 28.[address] Pereyra s/p IV Venofer x1, continue oral supplement Acute hypoxic respiratory failure in the setting of HFpEF exacerbation Shortness of breath improved, BNP 753 bumped to 841, not using home diuretics Echocardiogram 09/13/2022 showed LVEF 50-55%, moderate aortic valve stenosis, and severe pulmonary hypertension Continue Lasix 20mg IV daily ,1 liter neg, Echocardiogram showed EF 55 to 60%, [id number] aortic valve stenosis, small loculated pericardial effusion overlying the left ventricle, abnormal diastolic function. Monitor I/O, daily weights, lytes/mag Titrate supplemental O2>92, wean as tolerated, not on home O2 Chronic kidney disease stage 3 Creatinine remains unchanged since yesterday around 1.5, continue diuretics and follow BMP Acute lactic acidosis Lactic acid 2.6 with repeat 3.7 Secondary to hypoxia, not sepsis, Does not meet SIRS criteria: CXR not convincing for pneumonia, no fever or productive cough Leukocytosis chronically elevated secondary to chronic steroid use; tachycardia and tachypnea secondary to anemia Clinically pt appear stable and non-toxic, seen by dental technologist in the past BCR/ABL negative Intermittent Asthma/COPD overlap syndrome Noted to be in acute exacerbation today continue cough medication , change DuoNeb to q.4 hours scheduled start IV Solu Medrol and place on IV antibiotics Chest x-ray showed streaky opacity in the retrocardiac region and right lung base question atelectasis or infectious/inflammatory process HTN Continue hydralazine and verapamil hold losartan due to RA Continue chronic prednisone GERD Continue PPI Full Code DVT Prophylaxis: Pneumatic boots due to anemia Pt will require continued inpatient hospitalization for treatment of acute hypoxic respiratory failure requiring IV diuretics ,copd exac, and close monitoring of H&H. Quality Stroke Does the patient have a stroke diagnosis?: No VTE Prior VTE?: No VTE Risk Level:: Medical - moderate - high VTE Device Contraindication: N/A - Device Ordered VTE Drug Contraindication: Treatment Not Indicated
[2024-06-09] MEDS: Albuterol Sulfate 2.5 MG, Albuterol/Iprat 2.5/0.5MG 3 ML 3 ML INHALE (16:44)
[2024-06-09] MEDS: cefTRIAXone sodium 1 GM VIAL IVPUSH (17:24)
[2024-06-09] MEDS: methylPREDNISolone Sod Succ 40 MG/ML VIAL IVPUSH (17:24)
[2024-06-09] MEDS: Azithromycin 500 MG in 0.9 % Sodium Chloride 250 ML 125 MG IV (17:24)
[2024-06-09 21:29] LABS: Glucose, Whole Blood 239 mg/dL (60-115)
[2024-06-09] MEDS: Pravastatin Sodium 20 MG TABLET PO (22:17)
[2024-06-09] MEDS: VerapamiL HCL SR 240 MG TABLET.ER PO (22:17)
[2024-06-10] VITALS (9 sets, daily range): BP systolic 139–170; BP diastolic 56–73; PULSE 55–77; RESP 16–20; TEMP 36.3–36.9; O2SAT 92–98
[2024-06-10] MEDS: Omeprazole 20 MG CAPSULE.DR PO (05:15)
[2024-06-10 07:19] LABS: Anion Gap 15 (12-20); Blood Urea Nitrogen 50 mg/dL (9-16); Calcium 9.8 mg/dL (8.4-10.2); Carbon Dioxide 32 mmol/L (22-29); Chloride 97 mmol/L (96-108); Creatinine Clr Calc Pharmacy 19.1; Estimated Glomerular Filt Rate 25; Potassium 4.7 mmol/L (3.3-5.1); Sodium 139 mmol/L (135-145)
[2024-06-10 07:20] LABS: B Type Natriuretic Peptide 309 pg/mL (<100)
[2024-06-10 07:22] LABS: Glucose Random 352 mg/dL (60-115)
[2024-06-10 07:32] LABS: Glucose, Whole Blood 327 mg/dL (60-115)
[2024-06-10] MEDS: hydrALAZINE HCl 10 MG TABLET PO ×3 (08:19→20:22)
[2024-06-10] MEDS: predniSONE 5 MG TABLET PO (08:19)
[2024-06-10] MEDS: Docusate Sodium 100 MG CAPSULE PO (08:19)
[2024-06-10] MEDS: Magnesium Oxide 400 MG TABLET PO ×2 (08:19→20:23)
[2024-06-10] MEDS: Insulin Lispro 100 UNIT/ML 3 ML VIAL SUBCUT ×3 (08:20→20:23)
[2024-06-10] MEDS: guaiFENesin DM 200/20/10 ML 10 ML SYRUP PO ×3 (08:20→20:23)
[2024-06-10] MEDS: Ferrous Sulfate 324 MG TABLET.DR PO ×2 (08:20→16:43)
[2024-06-10] MEDS: Insulin Glargine,Hum.rec.anlog 100 UNIT/ML 10 ML VIAL 12 UNIT SUBCUT (08:20)
[2024-06-10] MEDS: 0.9 % Sodium Chloride Flush 3 ML SYRINGE IVFLUSH ×2 (08:20→20:25)
--- NOTE | 2024-06-10 11:18 | MHC.CM.PN ---
EMR REVIEWED, PT W/COPD EXAC, PT REMAINS ON SUPPLEMENTAL O2, PRN NEBS AND IV ABX, NO PLAN FOR DC AT THIS TIME, ANTIC PT WILL DC HOME W/RESUMP OF PAID SEARCH ANALYST HRS ONCE MEDICALLY CLEARED, CM WILL CONT TO FOLLOW DC NEEDS.
[2024-06-10] MEDS: Albuterol/Iprat 2.5/0.5MG 3 ML AMPUL.NEB INHALE ×3 (11:30→21:04)
[2024-06-10 11:37] LABS: Glucose, Whole Blood 96 mg/dL (60-115)
[2024-06-10 16:15] LABS: Glucose, Whole Blood 336 mg/dL (60-115)
[2024-06-10] MEDS: Azithromycin 500 MG in 0.9 % Sodium Chloride 250 ML 125 MG IV (16:43)
--- NOTE | 2024-06-10 17:00 | HO.PM.IMPN ---
Subjective Subjective Date of Service: 06/10/24 Interval History: Feeling better this morning, still with shortness of breath and cough denies fever, no chills, updraft helping with symptoms, appears euvolemic, tolerating diet with no nausea, no vomiting or abdominal pain. Review of Systems All other symptoms reviewed and are negative Physical Exam Vital Signs: Vital Signs: Last Vital Signs Temp 97.4 F 06/10/24 15:47 Pulse 77 06/10/24 15:47 Resp 20 06/10/24 15:47 BP 158/69 H 06/10/24 15:47 Pulse Ox 92 06/10/24 15:47 O2 Del Method Nasal Cannula 06/10/24 15:47 O2 Flow Rate 2 06/10/24 15:47 BMI result Body Mass Index 31.3 Const: Other: Gen: in mild respiratory distress with coughing and shortness of breath HEENT: sclera anicteric, moist mucus membranes Neck: supple, no JVD Lungs: Bilateral expiratory rhonchi, no crackles, no use of accessory muscles Heart: regular rate and rhythm, no murmurs Abd: soft, non-tender, non-distended Ext: mild edema improved since yesterday Skin: warm/well-perfused Neuro: alert and oriented x3, no focal findings Psych: appropriate affect Objective Data Active Medications Acetaminophen (Acetaminophen 325 Mg Tablet) 650 mg PO Q6H PRN PRN Reason: Pain, Mild (Pain Scale 1-3), fever or headache Albuterol/Ipratropium (Albuterol/Iprat 2.5/0.5mg 3 Ml Ampul.Neb) 3 ml INHALE RQ4H WHILE AWAKE [facility] Last Admin: 06/10/24 15:05 Dose: 3 ml Documented By: ABDIRIZAK Calcium Carbonate (Calcium Carbonate 750 Mg Tab.Chew) 750 mg PO Q4H PRN PRN Reason: Heartburn Ceftriaxone Sodium (Ceftriaxone Sodium 1 Gm Vial) 1 gm IVPUSH Q24H [facility] Last Admin: 06/09/24 17:24 Dose: 1 gm Documented By: MANISHA Docusate Sodium (Docusate Sodium 100 Mg Capsule) 100 mg PO DAILY [facility] Last Admin: 06/10/24 08:19 Dose: 100 mg Documented By: HIRAM Ferrous Sulfate (Ferrous Sulfate 324 Mg Tablet.) 324 mg PO BIDWM [facility] Last Admin: 06/10/24 16:43 Dose: 324 mg Documented By: HIRAM Glucose (Glucose Gel 15 Gm Gel..Gram.) 15 gm PO Q15M PRN; Protocol PRN Reason: per Hypoglycemia Standing Ord. Guaifenesin/Dextromethorphan (Guaifenesin Dm 200/20/10 Ml 10 Ml Syrup) 10 ml PO TID [facility] Last Admin: 06/10/24 15:01 Dose: 10 ml Documented By: HIRAM Hydralazine HCl (Hydralazine Hcl 10 Mg Tablet) 10 mg PO TID [facility]; Protocol Last Admin: 06/10/24 15:01 Dose: 10 mg Documented By: HIRAM Dextrose (D10) 250 mls @ 750 mls/hr IV Q15M PRN; Protocol PRN Reason: per Hypoglycemia Standing Ord. Azithromycin 500 mg/ Sodium (Chloride) 250 mls @ 125 mls/hr IV Q24H [facility] Last Admin: 06/10/24 16:43 Dose: 125 mls/hr Documented By: HIRAM Insulin Glargine (Insulin Glargine,Hum.Rec.Anlog 100 Unit/Ml 10 Ml Vial) 12 unit SUBCUT DAILY [facility] Last Admin: 06/10/24 08:20 Dose: 12 unit Documented By: HIRAM Insulin Human Lispro (Insulin Lispro 100 Unit/Ml 3 Ml Vial) 0 unit SUBCUT QIDACHS [facility]; Protocol Last Admin: 06/10/24 16:42 Dose: 8 unit Documented By: HIRAM Magnesium Hydroxide (Milk Of Magnesia 30 Ml Oral.Susp) 30 ml PO DAILY PRN PRN Reason: Constipation Last Admin: 06/09/24 16:16 Dose: 30 ml Documented By: MANISHA Magnesium Oxide (Magnesium Oxide 400 Mg Tablet) 400 mg PO BID [facility] Last Admin: 06/10/24 08:19 Dose: 400 mg Documented By: HIRAM Melatonin (Melatonin 3 Mg Tablet) 6 mg PO BEDTIME PRN PRN Reason: Insomnia Omeprazole (Omeprazole 20 Mg Capsule.Dr) 20 mg PO DAILY@0630 [facility] Last Admin: 06/10/24 05:15 Dose: 20 mg Documented By: LANDON Ondansetron HCl (Ondansetron Hcl 4 Mg/2 Ml Vial) 4 mg IVPUSH Q8H PRN PRN Reason: Nausea and Vomiting Pravastatin Sodium (Pravastatin Sodium 20 Mg Tablet) 20 mg PO BEDTIME [facility] Last Admin: 06/09/24 22:17 Dose: 20 mg Documented By: LANDON Prednisone (Prednisone 5 Mg Tablet) 5 mg PO DAILY [facility] Last Admin: 06/10/24 08:19 Dose: 5 mg Documented By: HIRAM Sodium Chloride (0.9 % Sodium Chloride Flush 3 Ml Syringe) 3 ml IVFLUSH QSHIFT [facility] Last Admin: 06/10/24 15:51 Dose: Not Given Documented By: HIRAM Non-Admin Reason: Previously Administered Verapamil HCl (Verapamil Hcl Sr 240 Mg Tablet.Er) 240 mg PO BEDTIME [facility]; Protocol Last Admin: 06/09/24 22:17 Dose: 240 mg Documented By: LANDON Labs 06/09/24 07:30 06/10/24 06:30 Labs: Laboratory Results - last 24 hr 06/09/24 06/10/24 06/10/24 21:15 06:30 07:27 Anion Gap 15 Estim Creat Clear Calc 19.1 Estimated GFR 25 POC Glucose 239 H 327 H Random Glucose 352 H* Calcium 9.8 B-Natriuretic Peptide 309 H 06/10/24 06/10/24 11:34 16:11 Anion Gap Estim Creat Clear Calc Estimated GFR POC Glucose 96 336 H Random Glucose Calcium B-Natriuretic Peptide Assessment and Plan (1) CHF exacerbation: Status: Acute (2) Hypoxia: Status: Acute (3) COPD exacerbation: Status: Acute (4) Anemia: Status: Acute Plan 83-year-old female with a PMH significant for?Asthma/COPD, HTN, insulin-dependent type 2 diabetes, HFpEF, severe pulmonary hypertension, RA on chronic prednisone, chronic anemia, and HLD who presents to the ED with?worsening SOB and BRAXTON x3 days. Pt will be admitted to the hospital acute hypoxic respiratory failure in the setting of anemia of chronic disease and acute CHF exacerbation. Intermittent Asthma/COPD overlap syndrome with acute exacerbation Noted to be in acute exacerbation 06/09, continue cough medication , DuoNeb to q.4 hours scheduled,t IV Solu Medrol and place on IV antibiotics Chest x-ray showed streaky opacity in the retrocardiac region and right lung base question atelectasis or infectious/inflammatory process Follow clinical course Symptomatic anemia H&H 6.3/21.1 (last labs 11.8/37.6 on 08/09), Likely anemia of chronic disease secondary to CKD3 No hemoptysis, hematemesis, melena, or hematochezia; stool negative for occult blood Iron low at 17, saturation low at 5%, TIBC WNL c/w anemia of chronic disease due to CKD, patient has stopped taking iron supplementation quite a while ago due to constipation, normal B12 and folate Received 2 units of packed RBC hematocrit improved and remained stable Case discussed with Dr. Pereyra s/p IV Venofer x1, continue oral supplement, will discharge on stool softeners. Acute hypoxic respiratory failure in the setting of HFpEF exacerbation BNP 753 bumped to 841 trended down to 309 today, not using home diuretics on Lasix 20mg IV daily ,1 liter neg, since patient appears clinically euvolemic with rising creatinine to 1.93 will DC IV Lasix Echocardiogram showed EF 55 to 60%, [id number] aortic valve stenosis, small loculated pericardial effusion overlying the left ventricle, abnormal diastolic function. Titrate supplemental O2>92, wean as tolerated, not on home O2 Follow BMP Diabetes mellitus on insulin Elevated blood sugars due to steroids adjusted insulin sliding scale continue Lantus 16 units daily home dose. Acute on Chronic kidney disease stage 3 Creatinine bumped from 1.5-1.93 likely due to over-diuresis, hold Lasix and follow BMP Acute lactic acidosis Lactic acid 2.6 with repeat 3.7 Secondary to hypoxia, not sepsis, Does not meet SIRS criteria: CXR not convincing for pneumonia, no fever or productive cough Leukocytosis chronically elevated secondary to chronic steroid use; tachycardia and tachypnea secondary to anemia Clinically pt appear stable and non-toxic, seen by arborist representative in the past BCR/ABL negative HTN Continue hydralazine and verapamil hold losartan due to RA on chronic prednisone resume upon discharge since on IV Solu-Medrol now GERD Continue PPI Full Code DVT Prophylaxis: Pneumatic boots due to anemia Pt will require continued inpatient hospitalization for treatment of acute hypoxic respiratory failure requiring IV diuretics ,copd exac, and close monitoring of H&H. Quality Stroke Does the patient have a stroke diagnosis?: No VTE Prior VTE?: No VTE Risk Level:: Medical - moderate - high VTE Device Contraindication: N/A - Device Ordered VTE Drug Contraindication: Treatment Not Indicated
[2024-06-10] MEDS: methylPREDNISolone Sod Succ 40 MG/ML VIAL IVPUSH (17:41)
[2024-06-10] MEDS: cefTRIAXone sodium 1 GM VIAL IVPUSH (17:41)
[2024-06-10 20:06] LABS: Glucose, Whole Blood 359 mg/dL (60-115)
[2024-06-10] MEDS: Pravastatin Sodium 20 MG TABLET PO (20:22)
[2024-06-10] MEDS: VerapamiL HCL SR 240 MG TABLET.ER PO (20:22)
[2024-06-11] VITALS (14 sets, daily range): BP systolic 149–172; BP diastolic 63–76; PULSE 62–90; RESP 16–20; TEMP 36.4–37.1; O2SAT 93–98
[2024-06-11] MEDS: methylPREDNISolone Sod Succ 40 MG/ML VIAL IVPUSH ×2 (05:55→17:17)
[2024-06-11] MEDS: Omeprazole 20 MG CAPSULE.DR PO (05:55)
[2024-06-11 07:10] LABS: Glucose, Whole Blood 243 mg/dL (60-115)
[2024-06-11 07:54] LABS: Anion Gap 16 (12-20); Blood Urea Nitrogen 56 mg/dL (9-16); Calcium 10.3 mg/dL (8.4-10.2); Carbon Dioxide 28 mmol/L (22-29); Chloride 96 mmol/L (96-108); Creatinine Clr Calc Pharmacy 21.8; Estimated Glomerular Filt Rate 29; Glucose Random 268 mg/dL (60-115); Potassium 4.9 mmol/L (3.3-5.1); Sodium 135 mmol/L (135-145)
[2024-06-11] MEDS: hydrALAZINE HCl 10 MG TABLET PO ×3 (07:58→21:00)
[2024-06-11] MEDS: Ferrous Sulfate 324 MG TABLET.DR PO ×2 (07:58→17:17)
[2024-06-11] MEDS: Magnesium Oxide 400 MG TABLET PO ×2 (07:58→21:00)
[2024-06-11] MEDS: Docusate Sodium 100 MG CAPSULE PO (07:58)
[2024-06-11] MEDS: Insulin Lispro 100 UNIT/ML 3 ML VIAL SUBCUT ×5 (07:59→20:59)
[2024-06-11] MEDS: guaiFENesin DM 200/20/10 ML 10 ML SYRUP PO ×3 (07:59→21:00)
[2024-06-11] MEDS: Insulin Glargine,Hum.rec.anlog 100 UNIT/ML 10 ML VIAL 16 UNIT SUBCUT (07:59)
[2024-06-11] MEDS: 0.9 % Sodium Chloride Flush 3 ML SYRINGE IVFLUSH ×3 (08:01→23:28)
[2024-06-11] MEDS: polyethylene glycoL 3350 17 GM POWD.PACK PO (08:03)
[2024-06-11] MEDS: Albuterol/Iprat 2.5/0.5MG 3 ML AMPUL.NEB INHALE ×4 (08:31→19:41)
[2024-06-11 10:58] LABS: Glucose, Whole Blood 245 mg/dL (60-115)
--- NOTE | 2024-06-11 12:46 | HO.PM.IMPN ---
Subjective Subjective Date of Service: 06/11/24 Interval History: Seen and examined this morning Follow-up for CHF, KLAUS, anemia, COPD exacerbation +cough, sob Review of Systems Review of Systems: Yes all other systems are reviewed and are negative Constitutional Constitutional: Denies chills and Denies fever(s) Cardiovascular Cardiovascular: Denies chest pain and Denies palpitations Gastrointestinal Gastrointestinal: Denies abdominal pain, Denies nausea and Denies vomiting Endocrine Endocrine: Denies palpitations Physical Exam Vital Signs: Vital Signs: Last Vital Signs Temp 98.7 F 06/11/24 11:18 Pulse 76 06/11/24 12:11 Resp 18 06/11/24 12:11 BP 166/74 H 06/11/24 11:18 Pulse Ox 95 06/11/24 11:18 O2 Del Method Nasal Cannula 06/11/24 11:18 O2 Flow Rate 2 06/11/24 11:18 BMI result Body Mass Index 31.3 Const: General: cooperative, comfortable, alert and awake Nutritional Appearance: average body habitus Orientation/consciousness: patient oriented x3 Resp: Other: b/l expiratory wheezing Effort & Inspection: normal respiratory effort, able to speak in complete sentences, no respiratory distress and uses accessory muscles Cardio: Rate: regular rate GI: Inspection: No distended Palpation (GI): Soft to palpation and nontender Neuro: General: patient oriented x3, moves all extremities and CN's II-XI intact bilaterally Extrem: General: Yes no pedal edema Objective Data Active Medications Acetaminophen (Acetaminophen 325 Mg Tablet) 650 mg PO Q6H PRN PRN Reason: Pain, Mild (Pain Scale 1-3), fever or headache Albuterol/Ipratropium (Albuterol/Iprat 2.5/0.5mg 3 Ml Ampul.Neb) 3 ml INHALE RQ4H WHILE AWAKE [facility] Last Admin: 06/11/24 12:10 Dose: 3 ml Documented By: FRACISCO Calcium Carbonate (Calcium Carbonate 750 Mg Tab.Chew) 750 mg PO Q4H PRN PRN Reason: Heartburn Ceftriaxone Sodium (Ceftriaxone Sodium 1 Gm Vial) 1 gm IVPUSH Q24H [facility] Last Admin: 06/10/24 17:41 Dose: 1 gm Documented By: HIRAM Docusate Sodium (Docusate Sodium 100 Mg Capsule) 100 mg PO DAILY [facility] Last Admin: 06/11/24 07:58 Dose: 100 mg Documented By: COLLINS Ferrous Sulfate (Ferrous Sulfate 324 Mg Tablet.Dr) 324 mg PO BIDWM [facility] Last Admin: 06/11/24 07:58 Dose: 324 mg Documented By: COLLINS Glucose (Glucose Gel 15 Gm Gel..Gram.) 15 gm PO Q15M PRN; Protocol PRN Reason: per Hypoglycemia Standing Ord. Guaifenesin/Dextromethorphan (Guaifenesin Dm 200/20/10 Ml 10 Ml Syrup) 10 ml PO TID [facility] Last Admin: 06/11/24 07:59 Dose: 10 ml Documented By: COLLINS Hydralazine HCl (Hydralazine Hcl 10 Mg Tablet) 10 mg PO TID [facility]; Protocol Last Admin: 06/11/24 07:58 Dose: 10 mg Documented By: COLLINS Dextrose (D10) 250 mls @ 750 mls/hr IV Q15M PRN; Protocol PRN Reason: per Hypoglycemia Standing Ord. Azithromycin 500 mg/ Sodium (Chloride) 250 mls @ 125 mls/hr IV Q24H [facility] Last Infusion: 06/10/24 18:47 Dose: Infused Documented By: HIRAM Insulin Glargine (Insulin Glargine,Hum.Rec.Anlog 100 Unit/Ml 10 Ml Vial) 16 unit SUBCUT DAILY [facility] Last Admin: 06/11/24 07:59 Dose: 16 unit Documented By: COLLINS Insulin Human Lispro (Insulin Lispro 100 Unit/Ml 3 Ml Vial) 0 unit SUBCUT QIDACHS [facility]; Protocol Last Admin: 06/11/24 11:31 Dose: 8 unit Documented By: COLLINS Magnesium Hydroxide (Milk Of Magnesia 30 Ml Oral.Susp) 30 ml PO DAILY PRN PRN Reason: Constipation Last Admin: 06/09/24 16:16 Dose: 30 ml Documented By: MANISHA Magnesium Oxide (Magnesium Oxide 400 Mg Tablet) 400 mg PO BID [facility] Last Admin: 06/11/24 07:58 Dose: 400 mg Documented By: COLLINS Melatonin (Melatonin 3 Mg Tablet) 6 mg PO BEDTIME PRN PRN Reason: Insomnia Methylprednisolone Sodium Succinate (Methylprednisolone Sod Succ 40 Mg/Ml Vial) 40 mg IVPUSH Q12H [facility] Last Admin: 06/11/24 05:55 Dose: 40 mg Documented By: MARLINE Omeprazole (Omeprazole 20 Mg Capsule.Dr) 20 mg PO DAILY@0630 [facility] Last Admin: 06/11/24 05:55 Dose: 20 mg Documented By: MARLINE Ondansetron HCl (Ondansetron Hcl 4 Mg/2 Ml Vial) 4 mg IVPUSH Q8H PRN PRN Reason: Nausea and Vomiting Polyethylene Glycol (Polyethylene Glycol 3350 17 Gm Powd.Pack) 17 gm PO DAILY [facility] Last Admin: 06/11/24 08:03 Dose: 17 gm Documented By: COLLINS Pravastatin Sodium (Pravastatin Sodium 20 Mg Tablet) 20 mg PO BEDTIME [facility] Last Admin: 06/10/24 20:22 Dose: 20 mg Documented By: MARLINE Sodium Chloride (0.9 % Sodium Chloride Flush 3 Ml Syringe) 3 ml IVFLUSH QSHIFT [facility] Last Admin: 06/11/24 08:01 Dose: 3 ml Documented By: COLLINS Verapamil HCl (Verapamil Hcl Sr 240 Mg Tablet.Er) 240 mg PO BEDTIME [facility]; Protocol Last Admin: 06/10/24 20:22 Dose: 240 mg Documented By: MARLINE Labs 06/09/24 07:30 06/11/24 07:20 Labs: Laboratory Results - last 24 hr 06/10/24 06/10/24 06/11/24 16:11 19:59 07:01 Anion Gap Estim Creat Clear Calc Estimated GFR POC Glucose 336 H 359 H* 243 H Random Glucose Calcium 06/11/24 06/11/24 07:20 10:52 Anion Gap 16 Estim Creat Clear Calc 21.8 Estimated GFR 29 POC Glucose 245 H Random Glucose 268 H Calcium 10.3 H Assessment and Plan (1) COPD exacerbation: Status: Acute Plan 83-year-old female with a PMH significant for?Asthma/COPD, HTN, insulin-dependent type 2 diabetes, HFpEF, severe pulmonary hypertension, RA on chronic prednisone, chronic anemia, and HLD who presents to the ED with?worsening SOB and BRAXTON x3 days. Initially admitted for hypoxic respiratory failure idue to anemia and acute CHF exacerbation now with exacerbation of COPD Intermittent Asthma/COPD overlap syndrome with acute exacerbation Noted to be in acute exacerbation 06/09, continue cough medication, DuoNeb to q.4 hours scheduled, IV Solu Medrol, IV antibiotics Chest x-ray showed streaky opacity in the retrocardiac region and right lung base question atelectasis or infectious/inflammatory process Follow clinical course wean oxygen as tolerated Symptomatic anemia H&H 6.3/21.1 (last labs 11.8/37.6 on 08/09), Likely anemia of chronic disease secondary to CKD3 No hemoptysis, hematemesis, melena, or hematochezia; stool negative for occult blood Iron low at 17, saturation low at 5%, TIBC WNL c/w anemia of chronic disease due to CKD, patient has stopped taking iron supplementation quite a while ago due to constipation, normal B12 and folate Received 2 units of packed RBC hematocrit improved and remained stable Case discussed with Dr. Pereyra s/p IV Venofer x1, continue oral supplement, will discharge on stool softeners. Acute hypoxic respiratory failure in the setting of HFpEF exacerbation BNP 753 bumped to 841 trended down to 309 today, not using home diuretics on Lasix 20mg IV daily, 1 liter neg, since patient appears clinically euvolemic with rising creatinine to 1.93 will DC IV Lasix Echocardiogram showed EF 55 to 60%, [id number] aortic valve stenosis, small loculated pericardial effusion overlying the left ventricle, abnormal diastolic function. Titrate supplemental O2>92, wean as tolerated, not on home O2 Follow BMP Diabetes mellitus on insulin Elevated blood sugars due to steroids adjusted insulin sliding scale, Lantus 16 units daily home dose Acute on Chronic kidney disease stage 3 Creatinine bumped from 1.5-1.93 likely due to over-diuresis, hold Lasix and follow BMP creatinine trending down, follow BMP Acute lactic acidosis Lactic acid 2.6 with repeat 3.7 Secondary to hypoxia, not sepsis, Does not meet SIRS criteria: CXR not convincing for pneumonia, no fever or productive cough Leukocytosis chronically elevated secondary to chronic steroid use; tachycardia and tachypnea secondary to anemia Clinically pt appear stable and non-toxic, seen by financial services director in the past BCR/ABL negative HTN Continue hydralazine and verapamil hold losartan due to KLAUS RA on chronic prednisone resume upon discharge since on IV Solu-Medrol now GERD Continue PPI Full Code DVT Prophylaxis: Pneumatic boots due to anemia Pt will require continued inpatient hospitalization for treatment of acute hypoxic respiratory failure requiring IV diuretics ,copd exac, and close monitoring of H&H. Quality Stroke Does the patient have a stroke diagnosis?: No VTE Prior VTE?: No VTE Risk Level:: Medical - moderate - high VTE Device Contraindication: N/A - Device Ordered VTE Drug Contraindication: Treatment Not Indicated
[2024-06-11 15:32] LABS: Glucose, Whole Blood 415 mg/dL (60-115)
[2024-06-11] MEDS: cefTRIAXone sodium 1 GM VIAL IVPUSH (17:17)
[2024-06-11] MEDS: Azithromycin 500 MG in 0.9 % Sodium Chloride 250 ML 125 MG IV (17:17)
[2024-06-11 20:46] LABS: Glucose, Whole Blood 402 mg/dL (60-115)
[2024-06-11] MEDS: Pravastatin Sodium 20 MG TABLET PO (21:00)
[2024-06-11] MEDS: VerapamiL HCL SR 240 MG TABLET.ER PO (21:03)
[2024-06-12] VITALS (10 sets, daily range): BP systolic 113–157; BP diastolic 58–67; PULSE 67–77; RESP 16–20; TEMP 36.3–37.1; O2SAT 93–98
[2024-06-12] MEDS: methylPREDNISolone Sod Succ 40 MG/ML VIAL IVPUSH (05:34)
[2024-06-12] MEDS: Omeprazole 20 MG CAPSULE.DR PO (05:34)
[2024-06-12 07:13] LABS: Glucose, Whole Blood 256 mg/dL (60-115)
[2024-06-12 08:03] LABS: Anion Gap 11 (12-20); Blood Urea Nitrogen 60 mg/dL (9-16); Calcium 9.2 mg/dL (8.4-10.2); Carbon Dioxide 31 mmol/L (22-29); Chloride 97 mmol/L (96-108); Creatinine Clr Calc Pharmacy 22.3; Estimated Glomerular Filt Rate 30; Glucose Random 249 mg/dL (60-115); Potassium 5.3 mmol/L (3.3-5.1); Sodium 134 mmol/L (135-145)
[2024-06-12 08:14] LABS: B Type Natriuretic Peptide 490 pg/mL (<100)
[2024-06-12] MEDS: guaiFENesin DM 200/20/10 ML 10 ML SYRUP PO ×3 (08:29→21:16)
[2024-06-12] MEDS: Docusate Sodium 100 MG CAPSULE PO (08:30)
[2024-06-12] MEDS: Insulin Lispro 100 UNIT/ML 3 ML VIAL SUBCUT ×4 (08:30→21:19)
[2024-06-12] MEDS: Insulin Glargine,Hum.rec.anlog 100 UNIT/ML 10 ML VIAL 16 UNIT SUBCUT (08:30)
[2024-06-12] MEDS: hydrALAZINE HCl 10 MG TABLET PO ×3 (08:30→21:17)
[2024-06-12] MEDS: polyethylene glycoL 3350 17 GM POWD.PACK PO (08:30)
[2024-06-12] MEDS: Magnesium Oxide 400 MG TABLET PO ×2 (08:30→21:17)
[2024-06-12] MEDS: Ferrous Sulfate 324 MG TABLET.DR PO ×2 (08:30→16:12)
[2024-06-12] MEDS: 0.9 % Sodium Chloride Flush 3 ML SYRINGE IVFLUSH ×3 (08:31→21:18)
[2024-06-12] MEDS: Albuterol/Iprat 2.5/0.5MG 3 ML AMPUL.NEB INHALE ×3 (11:13→20:41)
[2024-06-12 11:38] LABS: Glucose, Whole Blood 220 mg/dL (60-115)
[2024-06-12] MEDS: Furosemide 20 MG TABLET PO (13:00)
--- NOTE | 2024-06-12 15:12 | HO.PM.IMPN ---
Subjective Subjective Date of Service: 06/12/24 Interval History: seen and examined this morning follow up for CHF, KLAUS feeling weak, but breathing overall improved, off oxygen Review of Systems Review of Systems: Yes all other systems are reviewed and are negative Constitutional Constitutional: Denies chills and Denies fever(s) Cardiovascular Cardiovascular: Denies chest pain and Denies palpitations Endocrine Endocrine: Denies palpitations Physical Exam Vital Signs: Vital Signs: Last Vital Signs Temp 98.8 F 06/12/24 11:39 Pulse 76 06/12/24 11:39 Resp 20 06/12/24 11:39 BP 152/58 H 06/12/24 14:10 Pulse Ox 98 06/12/24 11:39 O2 Del Method Room Air 06/12/24 11:39 O2 Flow Rate 2 06/12/24 00:00 BMI result Body Mass Index 31.3 Const: General: cooperative, comfortable, alert and awake Nutritional Appearance: average body habitus Orientation/consciousness: patient oriented x3 Resp: Other: b/l expiratory wheezing Effort & Inspection: normal respiratory effort, able to speak in complete sentences, no respiratory distress and uses accessory muscles Cardio: Rate: regular rate GI: Inspection: No distended Palpation (GI): Soft to palpation and nontender Neuro: General: patient oriented x3, moves all extremities and CN's II-XI intact bilaterally Extrem: General: Yes no pedal edema Objective Data Active Medications Acetaminophen (Acetaminophen 325 Mg Tablet) 650 mg PO Q6H PRN PRN Reason: Pain, Mild (Pain Scale 1-3), fever or headache Albuterol/Ipratropium (Albuterol/Iprat 2.5/0.5mg 3 Ml Ampul.Neb) 3 ml INHALE RQ4H WHILE AWAKE [facility] Last Admin: 06/12/24 15:12 Dose: 3 ml Documented By: ABDIRIZAK Calcium Carbonate (Calcium Carbonate 750 Mg Tab.Chew) 750 mg PO Q4H PRN PRN Reason: Heartburn Ceftriaxone Sodium (Ceftriaxone Sodium 1 Gm Vial) 1 gm IVPUSH Q24H [facility] Last Admin: 06/11/24 17:17 Dose: 1 gm Documented By: COLLINS Docusate Sodium (Docusate Sodium 100 Mg Capsule) 100 mg PO DAILY [facility] Last Admin: 06/12/24 08:30 Dose: 100 mg Documented By: COLLINS Ferrous Sulfate (Ferrous Sulfate 324 Mg Tablet.Dr) 324 mg PO BIDWM [facility] Last Admin: 06/12/24 08:30 Dose: 324 mg Documented By: COLLINS Furosemide (Furosemide 20 Mg Tablet) 20 mg PO DAILY [facility]; Protocol Last Admin: 06/12/24 13:00 Dose: 20 mg Documented By: COLLINS Glucose (Glucose Gel 15 Gm Gel..Gram.) 15 gm PO Q15M PRN; Protocol PRN Reason: per Hypoglycemia Standing Ord. Guaifenesin/Dextromethorphan (Guaifenesin Dm 200/20/10 Ml 10 Ml Syrup) 10 ml PO TID [facility] Last Admin: 06/12/24 08:29 Dose: 10 ml Documented By: COLLINS Hydralazine HCl (Hydralazine Hcl 10 Mg Tablet) 10 mg PO TID [facility]; Protocol Last Admin: 06/12/24 08:30 Dose: 10 mg Documented By: COLLINS Dextrose (D10) 250 mls @ 750 mls/hr IV Q15M PRN; Protocol PRN Reason: per Hypoglycemia Standing Ord. Azithromycin 500 mg/ Sodium (Chloride) 250 mls @ 125 mls/hr IV Q24H [facility] Last Infusion: 06/11/24 19:30 Dose: Infused Documented By: COLLINS Insulin Glargine (Insulin Glargine,Hum.Rec.Anlog 100 Unit/Ml 10 Ml Vial) 16 unit SUBCUT DAILY [facility] Last Admin: 06/12/24 08:30 Dose: 16 unit Documented By: COLLINS Insulin Human Lispro (Insulin Lispro 100 Unit/Ml 3 Ml Vial) 0 unit SUBCUT QIDACHS [facility]; Protocol Last Admin: 06/12/24 12:26 Dose: 8 unit Documented By: COLLINS Magnesium Hydroxide (Milk Of Magnesia 30 Ml Oral.Susp) 30 ml PO DAILY PRN PRN Reason: Constipation Last Admin: 06/09/24 16:16 Dose: 30 ml Documented By: MANISHA Magnesium Oxide (Magnesium Oxide 400 Mg Tablet) 400 mg PO BID [facility] Last Admin: 06/12/24 08:30 Dose: 400 mg Documented By: COLLINS Melatonin (Melatonin 3 Mg Tablet) 6 mg PO BEDTIME PRN PRN Reason: Insomnia Methylprednisolone Sodium Succinate (Methylprednisolone Sod Succ 40 Mg/Ml Vial) 40 mg IVPUSH Q12H [facility] Last Admin: 06/12/24 05:34 Dose: 40 mg Documented By: ROWENA Omeprazole (Omeprazole 20 Mg Capsule.Dr) 20 mg PO DAILY@0630 [facility] Last Admin: 06/12/24 05:34 Dose: 20 mg Documented By: ROWENA Ondansetron HCl (Ondansetron Hcl 4 Mg/2 Ml Vial) 4 mg IVPUSH Q8H PRN PRN Reason: Nausea and Vomiting Polyethylene Glycol (Polyethylene Glycol 3350 17 Gm Powd.Pack) 17 gm PO DAILY [facility] Last Admin: 06/12/24 08:30 Dose: 17 gm Documented By: COLLINS Pravastatin Sodium (Pravastatin Sodium 20 Mg Tablet) 20 mg PO BEDTIME [facility] Last Admin: 06/11/24 21:00 Dose: 20 mg Documented By: ANDERSON Sodium Chloride (0.9 % Sodium Chloride Flush 3 Ml Syringe) 3 ml IVFLUSH QSHIFT [facility] Last Admin: 06/12/24 08:31 Dose: 3 ml Documented By: COLLINS Verapamil HCl (Verapamil Hcl Sr 240 Mg Tablet.Er) 240 mg PO BEDTIME [facility]; Protocol Last Admin: 06/11/24 21:03 Dose: 240 mg Documented By: ANDERSON Labs 06/09/24 07:30 06/12/24 06:24 Labs: Laboratory Results - last 24 hr 06/11/24 06/11/24 06/12/24 15:27 20:30 06:24 Anion Gap 11 L Estim Creat Clear Calc 22.3 Estimated GFR 30 POC Glucose 415 H* 402 H* Random Glucose 249 H Calcium 9.2 D B-Natriuretic Peptide 490 H 06/12/24 06/12/24 07:05 11:10 Anion Gap Estim Creat Clear Calc Estimated GFR POC Glucose 256 H 220 H Random Glucose Calcium B-Natriuretic Peptide Microbiology Microbiology Results: Microbiology 06/06/24 13:29 Blood Culture - Final Blood - Venous No growth after 5 days. 06/06/24 13:17 Blood Culture - Final Blood - Venous No growth after 5 days. Assessment and Plan (1) CHF exacerbation: Status: Acute (2) COPD exacerbation: Status: Acute Plan 83-year-old female with a PMH significant for?Asthma/COPD, HTN, insulin-dependent type 2 diabetes, HFpEF, severe pulmonary hypertension, RA on chronic prednisone, chronic anemia, and HLD who presents to the ED with?worsening SOB and BRAXTON x3 days. Initially admitted for hypoxic respiratory failure idue to anemia and acute CHF exacerbation now with exacerbation of COPD Intermittent Asthma/COPD overlap syndrome with acute exacerbation Noted to be in acute exacerbation 06/09, continue cough medication, DuoNeb to q.4 hours scheduled, IV Solu Medrol, IV antibiotics Chest x-ray showed streaky opacity in the retrocardiac region and right lung base question atelectasis or infectious/inflammatory process Follow clinical course wean oxygen as tolerated Symptomatic anemia H&H 6.3/21.1 (last labs 11.8/37.6 on 08/09), Likely anemia of chronic disease secondary to CKD3 No hemoptysis, hematemesis, melena, or hematochezia; stool negative for occult blood Iron low at 17, saturation low at 5%, TIBC WNL c/w anemia of chronic disease due to CKD, patient has stopped taking iron supplementation quite a while ago due to constipation, normal B12 and folate Received 2 units of packed RBC hematocrit improved and remained stable Case discussed with Dr. Pereyra s/p IV Venofer x1, continue oral supplement, will discharge on stool softeners. Acute hypoxic respiratory failure in the setting of HFpEF exacerbation initially treated with IV lasix, which was stopped when renal function trended up Echocardiogram showed EF 55 to 60%, [id number] aortic valve stenosis, small loculated pericardial effusion overlying the left ventricle, abnormal diastolic function. Titrate supplemental O2>92, wean as tolerated, not on home O2 will start low dose lasix follow BMP Diabetes mellitus on insulin Elevated blood sugars due to steroids adjusted insulin sliding scale, Lantus 16 units daily home dose Acute on Chronic kidney disease stage 3 Creatinine bumped from 1.5-1.93 likely due to over-diuresis creatinine trending down somewhat, follow BMP Acute lactic acidosis Lactic acid 2.6 with repeat 3.7 Secondary to hypoxia, not sepsis, Does not meet SIRS criteria: CXR not convincing for pneumonia, no fever or productive cough Leukocytosis chronically elevated secondary to chronic steroid use; tachycardia and tachypnea secondary to anemia Clinically pt appear stable and non-toxic, seen by business systems administrator in the past BCR/ABL negative HTN Continue hydralazine and verapamil hold losartan due to KLAUS RA on chronic prednisone GERD Continue PPI Full Code DVT Prophylaxis: Pneumatic boots due to anemia PT rec STR upon discharge Pt will require continued inpatient hospitalization for treatment of acute hypoxic respiratory failure requiring IV diuretics ,copd exac, and close monitoring of H&H. Quality Stroke Does the patient have a stroke diagnosis?: No VTE Prior VTE?: No VTE Risk Level:: Medical - moderate - high VTE Device Contraindication: N/A - Device Ordered VTE Drug Contraindication: Treatment Not Indicated
[2024-06-12 16:05] LABS: Glucose, Whole Blood 181 mg/dL (60-115)
[2024-06-12] MEDS: Azithromycin 500 MG in 0.9 % Sodium Chloride 250 ML 125 MG IV (16:13)
[2024-06-12 16:53] LABS: Hematocrit 32.9 % (37.0-47.0); Hemoglobin 10.4 g/dl (12.0-16.0); Mean Corpuscular HGB Conc 31.6 g/dl (31.0-35.0); Mean Corpuscular Volume 79.1 fL (80.0-98.0); Mean Platelet Volume 10.9 fL (9.4-12.3); Platelet Count 329 X10*3/uL (160-400); Red Blood Count 4.16 X10*6/uL (4.20-5.50); Red Cell Distribution Width 19.9 % (11.0-16.0); White Blood Count 22.4 X10*3/uL (4.8-10.8)
[2024-06-12] MEDS: cefTRIAXone sodium 1 GM VIAL IVPUSH (18:20)
[2024-06-12 21:06] LABS: Glucose, Whole Blood 275 mg/dL (60-115)
[2024-06-12] MEDS: VerapamiL HCL SR 240 MG TABLET.ER PO (21:17)
[2024-06-12] MEDS: Pravastatin Sodium 20 MG TABLET PO (21:17)
[2024-06-13] VITALS (10 sets, daily range): BP systolic 121–160; BP diastolic 56–88; PULSE 60–101; RESP 12–19; TEMP 36–37; O2SAT 90–96
[2024-06-13] MEDS: Omeprazole 20 MG CAPSULE.DR PO (06:43)
[2024-06-13 07:10] LABS: Glucose, Whole Blood 94 mg/dL (60-115)
[2024-06-13] MEDS: Albuterol/Iprat 2.5/0.5MG 3 ML AMPUL.NEB INHALE ×3 (07:32→20:36)
[2024-06-13 08:24] LABS: Anion Gap 13 (12-20); Blood Urea Nitrogen 54 mg/dL (9-16); Carbon Dioxide 30 mmol/L (22-29); Chloride 103 mmol/L (96-108); Creatinine Clr Calc Pharmacy 27.2; Estimated Glomerular Filt Rate 37; Glucose Random 92 mg/dL (60-115); Potassium 4.6 mmol/L (3.3-5.1); Sodium 141 mmol/L (135-145)
[2024-06-13] MEDS: Docusate Sodium 100 MG CAPSULE PO (08:48)
[2024-06-13] MEDS: predniSONE 20 MG TABLET 40 MG PO (08:48)
[2024-06-13] MEDS: Acetaminophen 325 MG TABLET 650 MG PO (08:48)
[2024-06-13] MEDS: polyethylene glycoL 3350 17 GM POWD.PACK PO (08:48)
[2024-06-13] MEDS: Ferrous Sulfate 324 MG TABLET.DR PO ×2 (08:48→16:47)
[2024-06-13] MEDS: Magnesium Oxide 400 MG TABLET PO ×2 (08:48→21:02)
[2024-06-13] MEDS: Insulin Glargine,Hum.rec.anlog 100 UNIT/ML 10 ML VIAL 16 UNIT SUBCUT (08:49)
[2024-06-13] MEDS: hydrALAZINE HCl 10 MG TABLET PO ×3 (08:49→21:02)
[2024-06-13] MEDS: guaiFENesin DM 200/20/10 ML 10 ML SYRUP PO ×3 (08:49→21:03)
[2024-06-13] MEDS: Furosemide 20 MG TABLET PO (08:49)
[2024-06-13] MEDS: 0.9 % Sodium Chloride Flush 3 ML SYRINGE IVFLUSH ×3 (08:50→21:04)
--- NOTE | 2024-06-13 10:32 | MHC.CM.PN ---
Addendum entered by Sofy Leach 06/13/24 15:01: This CM met with pt and her daughter Antonina present at bedside, per the pt and daughter Antonina they would like her to go to STR and [facility] is first choice. They undertsnad that the process of insurance auth cannot be initiated until Friday 06/15. A new HCP was completed with pt and is now on file. Antonina and her sisters numbers were confirmed and a [place] [facility] [place] Antonina's number is accurately listed, Demetra (Carmen's) correct number is [phone]. Original Note: EMR reviewed and per MD, pt is medically cleared for discharge. PT is recommending STR. This CM met with pt with the assistance of a fleet administrative assistant to discuss discharge plan and PT's recommendations for STR. Pt states she is willing to go to STR, but would like to speak with her daughters about it. This CM offered to call pts daughters to discuss, pt agreeable to that and provided this CM with her daughter Carmen's number. Call placed to pts daughter Carmen at [phone], no answer, and voicemail is unavailable. Call placed to pts daughter Antonina at [phone], no answer, and voicemail is unavailable. This CM placed STR referrals to local SNF's, awaiting a bed offer. Will attempt to speak with pts daughters again, and if STR bed offer received will review with pt.
[2024-06-13 10:52] LABS: Glucose, Whole Blood 206 mg/dL (60-115)
[2024-06-13] MEDS: Insulin Lispro 100 UNIT/ML 3 ML VIAL SUBCUT ×3 (11:23→21:09)
--- NOTE | 2024-06-13 12:54 | HO.PM.IMPN ---
Subjective Subjective Date of Service: 06/13/24 Interval History: seen and examined this morning Follow-up for CHF, COPD exacerbation Overall feeling better today denies dyspnea, cough improving Review of Systems Review of Systems: Yes all other systems are reviewed and are negative Constitutional Constitutional: Denies chills and Denies fever(s) Cardiovascular Cardiovascular: Denies chest pain, Denies palpitations and Denies dyspnea Respiratory Respiratory: Reports cough and Denies dyspnea Gastrointestinal Gastrointestinal: Denies abdominal pain Endocrine Endocrine: Denies palpitations Physical Exam Vital Signs: Vital Signs: Last Vital Signs Temp 97.3 F 06/13/24 10:55 Pulse 60 06/13/24 10:55 Resp 18 06/13/24 10:55 BP 132/63 06/13/24 10:55 Pulse Ox 94 06/13/24 10:55 O2 Del Method Room Air 06/13/24 10:55 O2 Flow Rate 2 06/12/24 00:00 BMI result Body Mass Index 31.3 Const: General: cooperative, comfortable, alert and awake Nutritional Appearance: average body habitus Orientation/consciousness: patient oriented x3 Resp: Other: scattered wheeze, improving Effort & Inspection: normal respiratory effort, able to speak in complete sentences, no respiratory distress and uses accessory muscles Cardio: Rate: regular rate GI: Inspection: No distended Palpation (GI): Soft to palpation and nontender Neuro: General: patient oriented x3, moves all extremities and CN's II-XI intact bilaterally Extrem: General: Yes no pedal edema Objective Data Active Medications Acetaminophen (Acetaminophen 325 Mg Tablet) 650 mg PO Q6H PRN PRN Reason: Pain, Mild (Pain Scale 1-3), fever or headache Last Admin: 06/13/24 08:48 Dose: 650 mg Documented By: WAYNE Albuterol/Ipratropium (Albuterol/Iprat 2.5/0.5mg 3 Ml Ampul.Neb) 3 ml INHALE RQ4H WHILE AWAKE [facility] Last Admin: 06/13/24 11:08 Dose: Not Given Documented By: ABDIRIZAK Non-Admin Reason: Patient Asleep Calcium Carbonate (Calcium Carbonate 750 Mg Tab.Chew) 750 mg PO Q4H PRN PRN Reason: Heartburn Ceftriaxone Sodium (Ceftriaxone Sodium 1 Gm Vial) 1 gm IVPUSH Q24H [facility] Last Admin: 06/12/24 18:20 Dose: 1 gm Documented By: HAYDEE Docusate Sodium (Docusate Sodium 100 Mg Capsule) 100 mg PO DAILY [facility] Last Admin: 06/13/24 08:48 Dose: 100 mg Documented By: WAYNE Ferrous Sulfate (Ferrous Sulfate 324 Mg Tablet.Dr) 324 mg PO BIDWM [facility] Last Admin: 06/13/24 08:48 Dose: 324 mg Documented By: WAYNE Furosemide (Furosemide 20 Mg Tablet) 20 mg PO DAILY [facility]; Protocol Last Admin: 06/13/24 08:49 Dose: 20 mg Documented By: WAYNE Glucose (Glucose Gel 15 Gm Gel..Gram.) 15 gm PO Q15M PRN; Protocol PRN Reason: per Hypoglycemia Standing Ord. Guaifenesin/Dextromethorphan (Guaifenesin Dm 200/20/10 Ml 10 Ml Syrup) 10 ml PO TID [facility] Last Admin: 06/13/24 08:49 Dose: 10 ml Documented By: WAYNE Hydralazine HCl (Hydralazine Hcl 10 Mg Tablet) 10 mg PO TID [facility]; Protocol Last Admin: 06/13/24 08:49 Dose: 10 mg Documented By: WAYNE Dextrose (D10) 250 mls @ 750 mls/hr IV Q15M PRN; Protocol PRN Reason: per Hypoglycemia Standing Ord. Azithromycin 500 mg/ Sodium (Chloride) 250 mls @ 125 mls/hr IV Q24H [facility] Last Infusion: 06/12/24 18:26 Dose: Infused Documented By: HAYDEE Insulin Glargine (Insulin Glargine,Hum.Rec.Anlog 100 Unit/Ml 10 Ml Vial) 16 unit SUBCUT DAILY [facility] Last Admin: 06/13/24 08:49 Dose: 16 unit Documented By: WAYNE Insulin Human Lispro (Insulin Lispro 100 Unit/Ml 3 Ml Vial) 0 unit SUBCUT QIDACHS [facility]; Protocol Last Admin: 06/13/24 11:23 Dose: 8 unit Documented By: WAYNE Magnesium Hydroxide (Milk Of Magnesia 30 Ml Oral.Susp) 30 ml PO DAILY PRN PRN Reason: Constipation Last Admin: 06/09/24 16:16 Dose: 30 ml Documented By: MANISHA Magnesium Oxide (Magnesium Oxide 400 Mg Tablet) 400 mg PO BID [facility] Last Admin: 06/13/24 08:48 Dose: 400 mg Documented By: WAYNE Melatonin (Melatonin 3 Mg Tablet) 6 mg PO BEDTIME PRN PRN Reason: Insomnia Omeprazole (Omeprazole 20 Mg Capsule.Dr) 20 mg PO DAILY@0630 [facility] Last Admin: 06/13/24 06:43 Dose: 20 mg Documented By: JEFFERY Ondansetron HCl (Ondansetron Hcl 4 Mg/2 Ml Vial) 4 mg IVPUSH Q8H PRN PRN Reason: Nausea and Vomiting Polyethylene Glycol (Polyethylene Glycol 3350 17 Gm Powd.Pack) 17 gm PO DAILY [facility] Last Admin: 06/13/24 08:48 Dose: 17 gm Documented By: WAYNE Pravastatin Sodium (Pravastatin Sodium 20 Mg Tablet) 20 mg PO BEDTIME [facility] Last Admin: 06/12/24 21:17 Dose: 20 mg Documented By: JEFFERY Prednisone (Prednisone 20 Mg Tablet) 40 mg PO DAILY [facility] Last Admin: 06/13/24 08:48 Dose: 40 mg Documented By: WAYNE Sodium Chloride (0.9 % Sodium Chloride Flush 3 Ml Syringe) [facility] Last Admin: 06/13/24 08:50 Dose: 3 ml Documented By: WAYNE Verapamil HCl (Verapamil Hcl Sr 240 Mg Tablet.Er) 240 mg PO BEDTIME [facility]; Protocol Last Admin: 06/12/24 21:17 Dose: 240 mg Documented By: JEFFERY Labs 06/12/24 15:32 06/13/24 07:05 Labs: Laboratory Results - last 24 hr 06/12/24 06/12/24 06/12/24 15:32 15:53 20:41 MCV 79.1 L MCH 25.0 L MCHC 31.6 RDW 19.9 H Plt Count 329 MPV 10.9 Absolute Nucleated RBC 0.000 Nucleated RBC % (auto) 0.0 Anion Gap Estim Creat Clear Calc Estimated GFR POC Glucose 181 H 275 H Random Glucose Calcium 06/13/24 06/13/24 06/13/24 07:02 07:05 10:48 MCV MCH MCHC RDW Plt Count MPV Absolute Nucleated RBC Nucleated RBC % (auto) Anion Gap 13 Estim Creat Clear Calc 27.2 Estimated GFR 37 POC Glucose 94 206 H Random Glucose 92 Calcium 10.0 D Assessment and Plan (1) CHF exacerbation: Status: Acute (2) COPD exacerbation: Status: Acute Plan 83-year-old female with a PMH significant for?Asthma/COPD, HTN, insulin-dependent type 2 diabetes, HFpEF, severe pulmonary hypertension, RA on chronic prednisone, chronic anemia, and HLD who presents to the ED with?worsening SOB and BRAXTON x3 days. Initially admitted for hypoxic respiratory failure idue to anemia and acute CHF exacerbation now with exacerbation of COPD Intermittent Asthma/COPD overlap syndrome with acute exacerbation Noted to be in acute exacerbation 06/09, continue cough medication, DuoNeb to q.4 hours scheduled, IV Solu Medrol, IV antibiotics (plan for 5 days) Chest x-ray showed streaky opacity in the retrocardiac region and right lung base question atelectasis or infectious/inflammatory process Symptomatic anemia H&H 6.3/21.1 (last labs 11.8/37.6 on 08/09), Likely anemia of chronic disease secondary to CKD3 No hemoptysis, hematemesis, melena, or hematochezia; stool negative for occult blood Iron low at 17, saturation low at 5%, TIBC WNL c/w anemia of chronic disease due to CKD, patient has stopped taking iron supplementation quite a while ago due to constipation, normal B12 and folate Received 2 units of packed RBC hematocrit improved and remained stable Case discussed with Dr. Pereyra s/p IV Venofer x1, continue oral supplement, will discharge on stool softeners. Acute hypoxic respiratory failure in the setting of HFpEF exacerbation initially treated with IV lasix, which was stopped when renal function trended up Echocardiogram showed EF 55 to 60%, [id number] aortic valve stenosis, small loculated pericardial effusion overlying the left ventricle, abnormal diastolic function. weaned to room air will start low dose lasix follow BMP Diabetes mellitus on insulin Elevated blood sugars due to steroids SSI, Lantus 16 units daily home dose Acute on Chronic kidney disease stage 3 Creatinine bumped from 1.5-1.93 likely due to over-diuresis resolved. creatinine trending down to baseline Acute lactic acidosis Lactic acid 2.6 with repeat 3.7 Secondary to hypoxia, not sepsis, Does not meet SIRS criteria Leukocytosis chronically elevated secondary to chronic steroid use; tachycardia and tachypnea secondary to anemia Clinically pt appear stable and non-toxic, seen by credit portfolio manager in the past BCR/ABL negative HTN Continue hydralazine and verapamil hold losartan due to KLAUS RA on chronic prednisone hyperkalemia resolved without intervention GERD Continue PPI Full Code DVT Prophylaxis: Pneumatic boots due to anemia PT rec STR upon discharge Pt will require continued inpatient hospitalization for treatment of acute hypoxic respiratory failure requiring IV diuretics ,copd exac, and close monitoring of H&H. Quality Stroke Does the patient have a stroke diagnosis?: No VTE Prior VTE?: No VTE Risk Level:: Medical - moderate - high VTE Device Contraindication: N/A - Device Ordered VTE Drug Contraindication: Treatment Not Indicated
[2024-06-13 16:11] LABS: Glucose, Whole Blood 172 mg/dL (60-115)
[2024-06-13] MEDS: Azithromycin 500 MG in 0.9 % Sodium Chloride 250 ML 125 MG IV (16:45)
[2024-06-13] MEDS: cefTRIAXone sodium 1 GM VIAL IVPUSH (16:48)
[2024-06-13 20:53] LABS: Glucose, Whole Blood 331 mg/dL (60-115)
[2024-06-13] MEDS: VerapamiL HCL SR 240 MG TABLET.ER PO (21:02)
[2024-06-13] MEDS: Pravastatin Sodium 20 MG TABLET PO (21:02)
[2024-06-14] VITALS (9 sets, daily range): BP systolic 135–172; BP diastolic 57–72; PULSE 61–91; RESP 16–20; TEMP 36.4–37.1; O2SAT 92–96
[2024-06-14] MEDS: Omeprazole 20 MG CAPSULE.DR PO (06:28)
[2024-06-14 07:09] LABS: Glucose, Whole Blood 81 mg/dL (60-115)
[2024-06-14] MEDS: Albuterol/Iprat 2.5/0.5MG 3 ML AMPUL.NEB INHALE ×3 (08:33→19:36)
[2024-06-14] MEDS: guaiFENesin DM 200/20/10 ML 10 ML SYRUP PO ×3 (09:23→21:42)
[2024-06-14] MEDS: Docusate Sodium 100 MG CAPSULE PO (09:23)
[2024-06-14] MEDS: predniSONE 20 MG TABLET 40 MG PO (09:23)
[2024-06-14] MEDS: polyethylene glycoL 3350 17 GM POWD.PACK PO ×2 (09:23→21:43)
[2024-06-14] MEDS: hydrALAZINE HCl 10 MG TABLET PO ×3 (09:23→21:42)
[2024-06-14] MEDS: Furosemide 20 MG TABLET PO (09:23)
[2024-06-14] MEDS: Acetaminophen 325 MG TABLET 650 MG PO (09:23)
[2024-06-14] MEDS: Insulin Glargine,Hum.rec.anlog 100 UNIT/ML 10 ML VIAL 16 UNIT SUBCUT (09:23)
[2024-06-14] MEDS: Magnesium Oxide 400 MG TABLET PO ×2 (09:23→21:42)
[2024-06-14] MEDS: Ferrous Sulfate 324 MG TABLET.DR PO ×2 (09:23→16:31)
[2024-06-14] MEDS: 0.9 % Sodium Chloride Flush 3 ML SYRINGE IVFLUSH ×2 (09:30→16:32)
[2024-06-14 10:49] LABS: Glucose, Whole Blood 239 mg/dL (60-115)
[2024-06-14] MEDS: Insulin Lispro 100 UNIT/ML 3 ML VIAL SUBCUT ×4 (11:04→21:43)
--- NOTE | 2024-06-14 11:07 | HO.PM.IMPN ---
Subjective Subjective Date of Service: 06/14/24 Interval History: seen and examined this morning follow up CHF, KLAUS, copd exacerbation having some left side pain with cough only breathing improved, off oxygen Review of Systems Review of Systems: Yes all other systems are reviewed and are negative Constitutional Constitutional: Denies chills and Denies fever(s) Cardiovascular Cardiovascular: Denies chest pain and Denies dyspnea Respiratory Respiratory: Denies dyspnea Gastrointestinal Gastrointestinal: Denies abdominal pain, Denies diarrhea, Denies nausea and Denies vomiting Physical Exam Vital Signs: Vital Signs: Last Vital Signs Temp 97.6 F 06/14/24 10:56 Pulse 69 06/14/24 10:56 Resp 18 06/14/24 10:56 BP 135/63 06/14/24 10:56 Pulse Ox 95 06/14/24 10:56 O2 Del Method Room Air 06/14/24 10:56 O2 Flow Rate 2 06/12/24 00:00 BMI result Body Mass Index 31.3 Const: General: cooperative, comfortable, no acute distress, well developed, alert and awake Nutritional Appearance: average body habitus Orientation/consciousness: patient oriented x3 Resp: Other: scattered wheeze, improving Effort & Inspection: normal respiratory effort, able to speak in complete sentences, no respiratory distress and no use of accessory muscles Cardio: Rate: regular rate GI: Inspection: No distended Palpation (GI): Soft to palpation and nontender Neuro: General: patient oriented x3, moves all extremities and CN's II-XI intact bilaterally Extrem: General: Yes no pedal edema Objective Data Active Medications Acetaminophen (Acetaminophen 325 Mg Tablet) 650 mg PO Q6H PRN PRN Reason: Pain, Mild (Pain Scale 1-3), fever or headache Last Admin: 06/14/24 09:23 Dose: 650 mg Documented By: WAYNE Albuterol/Ipratropium (Albuterol/Iprat 2.5/0.5mg 3 Ml Ampul.Neb) 3 ml INHALE RQ4H WHILE AWAKE [facility] Last Admin: 06/14/24 08:33 Dose: 3 ml Documented By: KITTY Calcium Carbonate (Calcium Carbonate 750 Mg Tab.Chew) 750 mg PO Q4H PRN PRN Reason: Heartburn Docusate Sodium (Docusate Sodium 100 Mg Capsule) 100 mg PO DAILY [facility] Last Admin: 06/14/24 09:23 Dose: 100 mg Documented By: WAYNE Ferrous Sulfate (Ferrous Sulfate 324 Mg Tablet.) 324 mg PO BIDWM [facility] Last Admin: 06/14/24 09:23 Dose: 324 mg Documented By: WAYNE Furosemide (Furosemide 20 Mg Tablet) 20 mg PO DAILY [facility]; Protocol Last Admin: 06/14/24 09:23 Dose: 20 mg Documented By: WAYNE Glucose (Glucose Gel 15 Gm Gel..Gram.) 15 gm PO Q15M PRN; Protocol PRN Reason: per Hypoglycemia Standing Ord. Guaifenesin/Dextromethorphan (Guaifenesin Dm 200/20/10 Ml 10 Ml Syrup) 10 ml PO TID [facility] Last Admin: 06/14/24 09:23 Dose: 10 ml Documented By: WAYNE Hydralazine HCl (Hydralazine Hcl 10 Mg Tablet) 10 mg PO TID [facility]; Protocol Last Admin: 06/14/24 09:23 Dose: 10 mg Documented By: WAYNE Dextrose (D10) 250 mls @ 750 mls/hr IV Q15M PRN; Protocol PRN Reason: per Hypoglycemia Standing Ord. Insulin Glargine (Insulin Glargine,Hum.Rec.Anlog 100 Unit/Ml 10 Ml Vial) 16 unit SUBCUT DAILY [facility] Last Admin: 06/14/24 09:23 Dose: 16 unit Documented By: WAYNE Insulin Human Lispro (Insulin Lispro 100 Unit/Ml 3 Ml Vial) 0 unit SUBCUT QIDACHS [facility]; Protocol Last Admin: 06/14/24 11:04 Dose: 4 unit Documented By: KEDAR Magnesium Hydroxide (Milk Of Magnesia 30 Ml Oral.Susp) 30 ml PO DAILY PRN PRN Reason: Constipation Last Admin: 06/09/24 16:16 Dose: 30 ml Documented By: MANISHA Magnesium Oxide (Magnesium Oxide 400 Mg Tablet) 400 mg PO BID [facility] Last Admin: 06/14/24 09:23 Dose: 400 mg Documented By: WAYNE Melatonin (Melatonin 3 Mg Tablet) 6 mg PO BEDTIME PRN PRN Reason: Insomnia Omeprazole (Omeprazole 20 Mg Capsule.) 20 mg PO DAILY@0630 [facility] Last Admin: 06/14/24 06:28 Dose: 20 mg Documented By: JEFFERY Ondansetron HCl (Ondansetron Hcl 4 Mg/2 Ml Vial) 4 mg IVPUSH Q8H PRN PRN Reason: Nausea and Vomiting Polyethylene Glycol (Polyethylene Glycol 3350 17 Gm Powd.Pack) 17 gm PO DAILY [facility] Last Admin: 06/14/24 09:23 Dose: 17 gm Documented By: WAYNE Pravastatin Sodium (Pravastatin Sodium 20 Mg Tablet) 20 mg PO BEDTIME [facility] Last Admin: 06/13/24 21:02 Dose: 20 mg Documented By: JEFFERY Prednisone (Prednisone 20 Mg Tablet) 40 mg PO DAILY [facility] Last Admin: 06/14/24 09:23 Dose: 40 mg Documented By: WAYNE Sodium Chloride (0.9 % Sodium Chloride Flush 3 Ml Syringe) 3 ml IVFLUSH QSHIFT [facility] Last Admin: 06/14/24 09:30 Dose: 3 ml Documented By: WAYNE Verapamil HCl (Verapamil Hcl Sr 240 Mg Tablet.Er) 240 mg PO BEDTIME [facility]; Protocol Last Admin: 06/13/24 21:02 Dose: 240 mg Documented By: JEFFERY Labs 06/12/24 15:32 06/13/24 07:05 Labs: Laboratory Results - last 24 hr 06/13/24 06/13/24 06/14/24 15:57 20:41 06:56 POC Glucose 172 H 331 H 81 06/14/24 10:46 POC Glucose 239 H Assessment and Plan (1) COPD exacerbation: Status: Acute Plan 83-year-old female with a PMH significant for?Asthma/COPD, HTN, insulin-dependent type 2 diabetes, HFpEF, severe pulmonary hypertension, RA on chronic prednisone, chronic anemia, and HLD who presents to the ED with?worsening SOB and BRAXTON x3 days. Initially admitted for hypoxic respiratory failure idue to anemia and acute CHF exacerbation now with exacerbation of COPD Intermittent Asthma/COPD overlap syndrome with acute exacerbation continue cough medication, DuoNeb to q.4 hours scheduled, solu-medrol changed to prednisone, completed 5 days of IV antibiotics Symptomatic anemia H&H 6.3/21.1 (last labs 11.8/37.6 on 08/09), Likely anemia of chronic disease secondary to CKD3 No hemoptysis, hematemesis, melena, or hematochezia; stool negative for occult blood Iron low at 17, saturation low at 5%, TIBC WNL c/w anemia of chronic disease due to CKD, patient has stopped taking iron supplementation quite a while ago due to constipation, normal B12 and folate Received 2 units of packed RBC hematocrit improved and remained stable Case discussed with Dr. Pereyra s/p IV Venofer x1, continue oral supplement, will discharge on stool softeners. Acute hypoxic respiratory failure in the setting of HFpEF exacerbation initially treated with IV lasix, which was stopped when renal function trended up Echocardiogram showed EF 55 to 60%, azuf-[id number] aortic valve stenosis, small loculated pericardial effusion overlying the left ventricle, abnormal diastolic function. weaned to room air started on low dose po lasix follow BMP Diabetes mellitus on insulin Elevated blood sugars due to steroids SSI, Lantus 16 units daily home dose Acute on Chronic kidney disease stage 3 Creatinine bumped from 1.5-1.93 likely due to over-diuresis - resolved Acute lactic acidosis Lactic acid 2.6 with repeat 3.7 Secondary to hypoxia, not sepsis, Does not meet SIRS criteria Leukocytosis chronically elevated secondary to chronic steroid use; tachycardia and tachypnea secondary to anemia Clinically pt appear stable and non-toxic, seen by survey field technician in the past BCR/ABL negative HTN Continue hydralazine and verapamil hold losartan due to KLAUS, resume as bp allows RA on chronic prednisone hyperkalemia resolved without intervention GERD Continue PPI Full Code DVT Prophylaxis: Pneumatic boots due to anemia PT rec STR upon discharge Pt will require continued inpatient hospitalization for treatment of acute hypoxic respiratory failure requiring IV diuretics ,copd exac, and close monitoring of H&H. Quality Stroke Does the patient have a stroke diagnosis?: No VTE Prior VTE?: No VTE Risk Level:: Medical - moderate - high VTE Device Contraindication: N/A - Device Ordered VTE Drug Contraindication: Treatment Not Indicated
[2024-06-14 16:23] LABS: Glucose, Whole Blood 366 mg/dL (60-115)
[2024-06-14 21:15] LABS: Glucose, Whole Blood 206 mg/dL (60-115)
[2024-06-14] MEDS: VerapamiL HCL SR 240 MG TABLET.ER PO (21:42)
[2024-06-14] MEDS: Pravastatin Sodium 20 MG TABLET PO (21:42)
[2024-06-15] VITALS (9 sets, daily range): BP systolic 120–159; BP diastolic 69–93; PULSE 61–75; RESP 16–19; TEMP 36.2–36.8; O2SAT 94–99
[2024-06-15] MEDS: 0.9 % Sodium Chloride Flush 3 ML SYRINGE IVFLUSH ×2 (00:42→10:50)
[2024-06-15] MEDS: Omeprazole 20 MG CAPSULE.DR PO (06:00)
[2024-06-15 07:39] LABS: Glucose, Whole Blood 83 mg/dL (60-115)
[2024-06-15] MEDS: Albuterol/Iprat 2.5/0.5MG 3 ML AMPUL.NEB INHALE ×3 (08:14→15:04)
[2024-06-15] MEDS: guaiFENesin DM 200/20/10 ML 10 ML SYRUP PO ×2 (10:40→17:04)
[2024-06-15] MEDS: Insulin Glargine,Hum.rec.anlog 100 UNIT/ML 10 ML VIAL 16 UNIT SUBCUT (10:41)
[2024-06-15] MEDS: polyethylene glycoL 3350 17 GM POWD.PACK PO (10:41)
[2024-06-15] MEDS: Ferrous Sulfate 324 MG TABLET.DR PO ×2 (10:42→17:05)
[2024-06-15] MEDS: Docusate Sodium 100 MG CAPSULE PO (10:42)
[2024-06-15] MEDS: predniSONE 20 MG TABLET 40 MG PO (10:42)
[2024-06-15] MEDS: Magnesium Oxide 400 MG TABLET PO (10:43)
[2024-06-15] MEDS: hydrALAZINE HCl 10 MG TABLET PO ×2 (10:43→17:04)
[2024-06-15] MEDS: Furosemide 20 MG TABLET PO (10:43)
[2024-06-15 11:21] LABS: Glucose, Whole Blood 183 mg/dL (60-115)
[2024-06-15] MEDS: Insulin Lispro 100 UNIT/ML 3 ML VIAL SUBCUT ×2 (12:43→17:06)
--- NOTE | 2024-06-15 13:12 | HO.PM.IMPN ---
Subjective Subjective Date of Service: 06/15/24 Interval History: seen and examined this morning follow up CHF, KLAUS, copd exacerbation breathing improved, off oxygen Review of Systems Review of Systems: Yes all other systems are reviewed and are negative Constitutional Constitutional: Denies chills and Denies fever(s) Cardiovascular Cardiovascular: Denies chest pain and Denies dyspnea Respiratory Respiratory: Denies dyspnea Gastrointestinal Gastrointestinal: Denies abdominal pain, Denies diarrhea, Denies nausea and Denies vomiting Physical Exam Vital Signs: Vital Signs: Last Vital Signs Temp 97.2 F 06/15/24 11: Pulse 61 06/15/24 11: Resp 18 06/15/24 11:26 BP 146/86 H 06/15/24 11: Pulse Ox 99 06/15/24 11: O2 Del Method Room Air 06/15/24 11: O2 Flow Rate 2 06/12/24 00:00 BMI result Body Mass Index 31.3 Appearing in no acute distress lung sounds are clear to auscultation heart regular rate rhythm, clear S1, S2 positive bowel sounds, abdomen is soft, nontender neuro patient is alert x3, no focal deficits Objective Data Active Medications Acetaminophen (Acetaminophen 325 Mg Tablet) 650 mg PO Q6H PRN PRN Reason: Pain, Mild (Pain Scale 1-3), fever or headache Last Admin: 06/14/24 09:23 Dose: 650 mg Documented By: WAYNE Albuterol/Ipratropium (Albuterol/Iprat 2.5/0.5mg 3 Ml Ampul.Neb) 3 ml INHALE RQ4H WHILE AWAKE [facility] Last Admin: 06/15/24 11:17 Dose: 3 ml Documented By: JANIS Calcium Carbonate (Calcium Carbonate 750 Mg Tab.Chew) 750 mg PO Q4H PRN PRN Reason: Heartburn Docusate Sodium (Docusate Sodium 100 Mg Capsule) 100 mg PO DAILY [facility] Last Admin: 06/15/24 10:42 Dose: 100 mg Documented By: LIZZ Ferrous Sulfate (Ferrous Sulfate 324 Mg Tablet.) 324 mg PO BIDWM [facility] Last Admin: 06/15/24 10:42 Dose: 324 mg Documented By: LIZZ Furosemide (Furosemide 20 Mg Tablet) 20 mg PO DAILY [facility]; Protocol Last Admin: 06/15/24 10:43 Dose: 20 mg Documented By: LIZZ Glucose (Glucose Gel 15 Gm Gel..Gram.) 15 gm PO Q15M PRN; Protocol PRN Reason: per Hypoglycemia Standing Ord. Guaifenesin/Dextromethorphan (Guaifenesin Dm 200/20/10 Ml 10 Ml Syrup) 10 ml PO TID [facility] Last Admin: 06/15/24 10:40 Dose: 10 ml Documented By: LIZZ Hydralazine HCl (Hydralazine Hcl 10 Mg Tablet) 10 mg PO TID [facility]; Protocol Last Admin: 06/15/24 10:43 Dose: 10 mg Documented By: LIZZ Dextrose (D10) 250 mls @ 750 mls/hr IV Q15M PRN; Protocol PRN Reason: per Hypoglycemia Standing Ord. Insulin Glargine (Insulin Glargine,Hum.Rec.Anlog 100 Unit/Ml 10 Ml Vial) 16 unit SUBCUT DAILY [facility] Last Admin: 06/15/24 10:41 Dose: 16 unit Documented By: LIZZ Insulin Human Lispro (Insulin Lispro 100 Unit/Ml 3 Ml Vial) 0 unit SUBCUT QIDACHS [facility]; Protocol Last Admin: 06/15/24 12:43 Dose: 2 unit Documented By: LIZZ Magnesium Hydroxide (Milk Of Magnesia 30 Ml Oral.Susp) 30 ml PO DAILY PRN PRN Reason: Constipation Last Admin: 06/09/24 16:16 Dose: 30 ml Documented By: MANISHA Magnesium Oxide (Magnesium Oxide 400 Mg Tablet) 400 mg PO BID [facility] Last Admin: 06/15/24 10:43 Dose: 400 mg Documented By: LIZZ Melatonin (Melatonin 3 Mg Tablet) 6 mg PO BEDTIME PRN PRN Reason: Insomnia Omeprazole (Omeprazole 20 Mg Capsule.Dr) 20 mg PO DAILY@0630 [facility] Last Admin: 06/15/24 06:00 Dose: 20 mg Documented By: KLEVER Ondansetron HCl (Ondansetron Hcl 4 Mg/2 Ml Vial) 4 mg IVPUSH Q8H PRN PRN Reason: Nausea and Vomiting Polyethylene Glycol (Polyethylene Glycol 3350 17 Gm Powd.Pack) 17 gm PO BID [facility] Last Admin: 06/15/24 10:41 Dose: 17 gm Documented By: LIZZ Pravastatin Sodium (Pravastatin Sodium 20 Mg Tablet) 20 mg PO BEDTIME [facility] Last Admin: 06/14/24 21:42 Dose: 20 mg Documented By: CHRISTIANO Prednisone (Prednisone 20 Mg Tablet) 40 mg PO DAILY [facility] Last Admin: 06/15/24 10:42 Dose: 40 mg Documented By: LIZZ Sodium Chloride (0.9 % Sodium Chloride Flush 3 Ml Syringe) 3 ml IVFLUSH QSHIFT [facility] Last Admin: 06/15/24 10:50 Dose: 3 ml Documented By: LIZZ Verapamil HCl (Verapamil Hcl Sr 240 Mg Tablet.Er) 240 mg PO BEDTIME [facility]; Protocol Last Admin: 06/14/24 21:42 Dose: 240 mg Documented By: CHRISTIANO Labs 06/12/24 15:32 06/13/24 07:05 Labs: Laboratory Results - last 24 hr 06/14/24 06/14/24 06/15/24 16:19 21:05 07:20 POC Glucose 366 H* 206 H 83 06/15/24 11:17 POC Glucose 183 H Assessment and Plan (1) COPD exacerbation: Status: Acute Plan 83-year-old female with a PMH significant for?Asthma/COPD, HTN, insulin-dependent type 2 diabetes, HFpEF, severe pulmonary hypertension, RA on chronic prednisone, chronic anemia, and HLD who presents to the ED with?worsening SOB and BRAXTON x3 days. Initially admitted for hypoxic respiratory failure idue to anemia and acute CHF exacerbation now with exacerbation of COPD Intermittent Asthma/COPD overlap syndrome with acute exacerbation continue cough medication, DuoNeb to q.4 hours scheduled, solu-medrol changed to prednisone, completed 5 days of IV antibiotics Symptomatic anemia H&H 6.3/21.1 (last labs 11.8/37.6 on 08/09), Likely anemia of chronic disease secondary to CKD3 No hemoptysis, hematemesis, melena, or hematochezia; stool negative for occult blood Iron low at 17, saturation low at 5%, TIBC WNL c/w anemia of chronic disease due to CKD, patient has stopped taking iron supplementation quite a while ago due to constipation, normal B12 and folate Received 2 units of packed RBC hematocrit improved and remained stable Case discussed with Dr. Pereyra s/p IV Venofer x1, continue oral supplement, will discharge on stool softeners. Acute hypoxic respiratory failure in the setting of HFpEF exacerbation initially treated with IV lasix, which was stopped when renal function trended up Echocardiogram showed EF 55 to 60%, [id number] aortic valve stenosis, small loculated pericardial effusion overlying the left ventricle, abnormal diastolic function. weaned to room air started on low dose po lasix follow BMP Diabetes mellitus on insulin Elevated blood sugars due to steroids SSI, Lantus 16 units daily home dose Acute on Chronic kidney disease stage 3 Creatinine bumped from 1.5-1.93 likely due to over-diuresis - resolved Acute lactic acidosis Lactic acid 2.6 with repeat 3.7 Secondary to hypoxia, not sepsis, Does not meet SIRS criteria Leukocytosis chronically elevated secondary to chronic steroid use; tachycardia and tachypnea secondary to anemia Clinically pt appear stable and non-toxic, seen by project account manager in the past BCR/ABL negative HTN Continue hydralazine and verapamil hold losartan due to KLAUS, resume as bp allows RA on chronic prednisone hyperkalemia resolved without intervention GERD Continue PPI Full Code DVT Prophylaxis: Pneumatic boots due to anemia Attending Dr. Shaver PT rec STR upon discharge Pt will require continued inpatient hospitalization for treatment of acute hypoxic respiratory failure requiring IV diuretics ,copd exac, and close monitoring of H&H. Quality Stroke Does the patient have a stroke diagnosis?: No VTE Prior VTE?: No VTE Risk Level:: Medical - moderate - high VTE Device Contraindication: N/A - Device Ordered VTE Drug Contraindication: Treatment Not Indicated
--- NOTE | 2024-06-15 14:27 | P.DS_ITS ---
DS: Providers Provider Date of Service: 06/15/24 Date of admission: 06/06/24 16:39 Primary care physician: Teofilo Moreno III, MD Consults: 06/06/24 17:29 Consult to Hematology / Oncology Routine Consulting Provider: [facility] [place]ology Reason for consultation: Anemia, transfused 2 units PRBCs DS: Diagnosis Discharge Diagnosis (1) COPD exacerbation: Status: Acute DS: Summary Hospital Course Hospital Course: History and physical as per admitting provider. Pt is an 83-year-old female with a PMH significant for?Asthma/COPD, HTN, insulin-dependent type 2 diabetes, HFpEF, severe pulmonary hypertension, RA on chronic prednisone, chronic anemia, and HLD who presents to the ED with?worsening SOB and BRAXTON x3 days. Symptoms began approximately 2 weeks ago, though have worsened in the past 3 days. SOB particularly pronounced with exertion, and patient reports using her inhaler frequently during the day without much relief. Has had nonproductive cough. Denies orthopnea, PND. Also experienced increased lower leg edema. Patient previously on Lasix but has not been taking it for quite some time. Denies hematemesis or hemoptysis. No melena or hematochezia. Denies fever, chills, nausea, vomiting, abdominal pain. No chest pain/pressure, or palpitations. Of note, patient follows with Dr. Pereyra for chronic anemia. Patient has not been taking iron supplementation due to constipation. In the ED pt was tachycardic up to 97, tachypneic up to 26, and with variable BP as low as 131/44, and desatting into the 80s on RA. Labs were significant for leukocytosis 16.3, H&H 6.3/21.1, sodium 147, BUN 27, lactic acid 2.6, and BNP 753. Renal function around baseline. Hepatic function WNL. Stool negative for occult blood. Tested negative for flu, RSV, and COVID. CXR showed streaky opacity in the retrocardiac region of right lung base possibly reflecting atelectasis or infectious/inflammatory process. EKG demonstrated sinus bradycardia with LBBB, similar to previous. Pt was treated with DuoNebs, Solu-Medrol and doxycycline. Pt will be admitted to the hospital acute hypoxic respiratory failure in the setting of anemia of chronic disease and acute CHF exacerbation. Intermittent Asthma/COPD overlap syndrome with acute exacerbation. Treated with antitussives, DuoNebs, IV Solu-Medrol. Change to oral prednisone. Treated and completed 5 days of IV antibiotics. Symptomatic anemia. Initial H&H 6.3/21.1, likely secondary to anemia of chronic disease due to CKD stage III. No hemoptysis, hematemesis, melena or hematochezia. Stool occult negative. Iron low at 17 with saturation at 5% and TIBC within normal limits. Patient has stopped taking her iron supplementation months ago due to constipation. She did receive 2 units of packed red blood cells with improvement in her H&H. Case discussed with Dr. Pereyra s/p IV Venofer x1, continue oral supplement, will discharge on stool softeners. Acute hypoxic respiratory failure in the setting of HFpEF exacerbation. Initially treated with IV Lasix but stopped due to renal function worsening. Echocardiogram showed EF of 55-60% with [id number] aortic valve stenosis, small loculated pericardial effusion overlying the left ventricle, abnormal diastolic function. Weaned to room air and started on low-dose Lasix Diabetes mellitus on insulin. Elevated blood sugar secondary to steroid use. Continue home medications Acute on Chronic kidney disease stage 3 Creatinine bumped from 1.5-1.93 likely due to over-diuresis - resolved Acute lactic acidosis. Secondary to hypoxia. Not sepsis HTN Continue hydralazine and verapamil hold losartan due to KLAUS, resume as bp allows RA on chronic prednisone hyperkalemia resolved without intervention GERD Continue PPI Time Attestation Discharge Coordination Time (in mins): 40 Quality: Safe Use of Opioids Does Pt have an Active Cancer Diagnosis on the Problem List?: No Quality: Stroke Does the patient have a stroke diagnosis?: No Physical Exam Vital Signs: Vital Signs: Last Vital Signs Temp 97.2 F 06/15/24 11:26 Pulse 61 06/15/24 11:26 Resp 18 06/15/24 11:26 BP 146/86 H 06/15/24 11:26 Pulse Ox 99 06/15/24 11:26 O2 Del Method Room Air 06/15/24 11:26 O2 Flow Rate 2 06/12/24 00:00 BMI result Body Mass Index 31.3 Appearing in no acute distress head is normocephalic atraumatic eyes pupils are PERRLA sclera is anicteric mouth throat mucous membranes are intact and moist neck is supple no lymphadenopathy, no JVD noted lung sounds are clear to auscultation heart regular rate rhythm, clear S1, S2 positive bowel sounds, abdomen is soft, nontender neuro patient is alert x3, no focal deficits DS: Data Data Completed and Pending Labs on day of discharge: Laboratory Results - last 24 hr 06/14/24 06/14/24 06/15/24 16:19 21:05 07:20 POC Glucose 366 H* 206 H 83 06/15/24 11:17 POC Glucose 183 H Discharge Plan Discharge Anticipated Discharge Date/Time: 06/15/24 14:26 Patient Disposition: Xfer SNF Discharge Diagnosis: Intermittent asthma/COPD overlap with acute exacerbation Symptomatic anemia Acute hypoxic respiratory failure secondary to heart failure with preserved ejection fraction Referrals: Teofilo Moreno III, MD [Primary Care Provider] - 1 Week Discharge Medications: New furosemide 20 mg Tablet 20 mg PO DAILY Qty: 30 0RF Protocol: Hold for SBP< HOLD for SBP < : 90 ferrous sulfate 324 mg (65 mg iron) Tablet,Delayed Release (Dr/Ec) 324 mg PO BIDWM Qty: 60 0RF Continued albuterol sulfate 2.5 mg /3 mL (0.083 %) solution for nebulization 2.5 mg inhalation Q4-6H PRN (Reason: for wheezing) Qty: 75 3RF albuterol sulfate [Ventolin HFA] 90 mcg/actuation HFA aerosol inhaler 2 puff PO Q8H PRN (Reason: shortness of breath or wheezing) Qty: 18 3RF insulin glargine [Lantus U-100 Insulin] 100 unit/mL Solution 16 unit SUBCUT DAILY@0900 (DME) FreeStyle Lite Strips Strip MISCELLANEOUS TID losartan 25 mg tablet 25 mg PO DAILY hydralazine 10 mg tablet 10 mg PO TID dextromethorphan-guaifenesin 10-100 mg/5 mL Syrup 10 ml PO Q4-6H PRN (Reason: Cough) prednisone 2.5 mg tablet 5 mg PO DAILY Rx Instructions: 7.5 mg for April, 5 mg for May, and 2.5 mg for June/until finished per patient and daughter docusate sodium 100 mg capsule 100 mg PO DAILY verapamil 240 mg tablet extended release 240 mg PO BEDTIME pravastatin 20 mg tablet 20 mg PO BEDTIME insulin aspart U-100 [Novolog FlexPen U-100 Insulin] 100 unit/mL (3 mL) insulin pen See Protocol subcut TIDWM Protocol: Insulin Correction Scale Less than or equal to 110 ---- Give (units): 0 111 to 150 Give (units): 0 151 to 200 Give (units): 2 201 to 250 Give (units): 4 251 to 300 Give (units): 6 301 to 350 Give (units): 8 Greater than 350 Give (units): 10 Call MD if Blood Glucose > : 350 (DME) lancets 30 gauge misc See Rx Instructions .ROUTE .MEDSUPPLY Qty: 100 Rx Instructions: As directed magnesium oxide 400 mg (241.3 mg magnesium) tablet 400 mg PO BID aspirin 81 mg tablet,delayed release (DR/EC) 81 mg PO DAILY (DME) inhalat.spacing dev,large mask Spacer See Rx Instructions .ROUTE .MEDSUPPLY Qty: 1 Rx Instructions: As directed (DME) blood sugar diagnostic Strip See Rx Instructions Not Applicable .MEDSUPPLY Qty: 10 Rx Instructions: As directed omeprazole 20 mg capsule,delayed release(DR/EC) 20 mg PO DAILY@0630 Discharge Orders: Discharge Order (Routine); Ordered 06/15/24 Ordered By: Ania Sow Diet: Advance to usual diet Activity on Discharge: As tolerated Stand Alone Forms: Patient Portal Discharge page Print Language: Mauritian Care Plan Goals: Transfer to short-term rehab for physical therapy Health Concerns: Intermittent asthma/COPD overlap with acute exacerbation Symptomatic anemia Acute hypoxic respiratory failure secondary to heart failure with preserved ejection fraction Plan of Treatment: Follow-up with primary care provider as needed Take all medications as prescribed Assessment: See discharge summary
--- NOTE | 2024-06-15 14:58 | MHC.CM.PN ---
Second IMM 06/15/24, Pt. has been medically cleared for DC, she will go to [facility] via BLS this afternoon.
[2024-06-15 16:14] LABS: Glucose, Whole Blood 301 mg/dL (60-115)
== END 2024-06-15 17:33 | disposition skilled nursing facility (03) | DRG 291 ==
LOC: HO.ED 14:29 → HO.EDOVER 17:07 → HO.IMC 21:37
PROVIDERS: Hospitalist; Nurse Practitioner Family; Physician Assistant Medical; Student in an Organized Health Care Education/Training Program; Admitting Provider Student in an Organized Health Care Education/Training Program; Emergency Provider Emergency Medicine; PCP Internal Medicine; Visit Provider Nurse Practitioner Acute Care
DX: I13.0 Hypertensive heart and chronic kidney disease with heart failure and stage 1 through stage 4 chronic kidney disease, or unspecified chronic kidney disease (principal); I50.33 Acute on chronic diastolic (congestive) heart failure; J96.01 Acute respiratory failure with hypoxia; E87.21 Acute metabolic acidosis; J98.11 Atelectasis; J44.1 Chronic obstructive pulmonary disease with (acute) exacerbation; J45.21 Mild intermittent asthma with (acute) exacerbation; N17.9 Acute kidney failure, unspecified; D63.1 Anemia in chronic kidney disease; M06.9 Rheumatoid arthritis, unspecified; D50.9 Iron deficiency anemia, unspecified; E87.5 Hyperkalemia; I35.0 Nonrheumatic aortic (valve) stenosis; E78.5 Hyperlipidemia, unspecified; I27.20 Pulmonary hypertension, unspecified; E53.8 Deficiency of other specified B group vitamins; E86.1 Hypovolemia; Z20.822 Contact with and (suspected) exposure to COVID-19; E11.22 Type 2 diabetes mellitus with diabetic chronic kidney disease; N18.30 Chronic kidney disease, stage 3 unspecified; Z79.4 Long term (current) use of insulin; Z79.52 Long term (current) use of systemic steroids; Z79.82 Long term (current) use of aspirin; Z79.899 Other long term (current) drug therapy
CPT/HCPCS: 0241U; 36415; 71046; 80048; 80053; 81001; 82272; 82607; 82746; 82947; 83540; 83605; 83735; 83880; 85025; 85027; 85610; 86850; 86900; 86901; 86923; 87040; 90656; 93005; 93306; 94640; 97162; 99285; J0456; J0696; J1756; J1940; J2919; P9016; Q9957

== ENCOUNTER → 2024-06-06 11:42 | Outpatient (BNV) | payer OTHER, SELFPAY | PROVIDERS: Admitting Provider Student in an Organized Health Care Education/Training Program; Emergency Provider Emergency Medicine; PCP Internal Medicine; Visit Provider Internal Medicine Cardiovascular Disease | DX: R94.31 Abnormal electrocardiogram [ECG] [EKG] (principal) | CPT/HCPCS: 93010 ==

== ENCOUNTER 2024-06-06 16:39 | Outpatient (BNV) | payer OTHER, SELFPAY | END 2024-06-08 07:00 | PROVIDERS: Admitting Provider Student in an Organized Health Care Education/Training Program; Emergency Provider Emergency Medicine; PCP Internal Medicine; Visit Provider Internal Medicine Cardiovascular Disease | DX: I35.0 Nonrheumatic aortic (valve) stenosis (principal); I35.8 Other nonrheumatic aortic valve disorders; I50.33 Acute on chronic diastolic (congestive) heart failure; I34.81 Nonrheumatic mitral (valve) annulus calcification | CPT/HCPCS: 93306 ==

== ENCOUNTER → 2024-06-06 16:39 | Outpatient (BNV) | payer OTHER, SELFPAY | PROVIDERS: Admitting Provider Student in an Organized Health Care Education/Training Program; Emergency Provider Emergency Medicine; PCP Internal Medicine; Visit Provider Student in an Organized Health Care Education/Training Program | DX: I50.9 Heart failure, unspecified (principal); J44.1 Chronic obstructive pulmonary disease with (acute) exacerbation | CPT/HCPCS: 99223; 99232 ==

== ENCOUNTER → 2024-06-06 16:39 | Outpatient (BNV) | payer OTHER, SELFPAY | PROVIDERS: Admitting Provider Student in an Organized Health Care Education/Training Program; Emergency Provider Emergency Medicine; PCP Internal Medicine; Visit Provider Internal Medicine | DX: D50.9 Iron deficiency anemia, unspecified (principal); D51.9 Vitamin B12 deficiency anemia, unspecified; N18.30 Chronic kidney disease, stage 3 unspecified | CPT/HCPCS: 99222; 99231 ==

== ENCOUNTER 2024-08-11 13:17 | Outpatient (AMB) | payer OTHER, SELFPAY ==
[2024-08-11 13:28] VITALS: BP 140/50; PULSE 69; O2SAT 97; BMI 30.7
--- NOTE | 2024-08-11 13:28 | A.OFFVIS_ITS ---
Vital Signs 08/11/24 13:28 Height 4 ft 11 in Weight 152 lb BMI 30.7 BP 140/50 H Blood Pressure Location Lt brachial Position Sitting Pulse 69 Pulse Source Pulse Oximeter Pulse Oximetry (%) 97 Oxygen Delivery Method Room Air Intake Visit Reasons: COPD Intake Note: pt is here for follow up and states she is coughing and wheezing. this am i feel asthma Medical Device Sales Representative Required: No Allergies latex [LATEX] Allergy (Unknown, Verified 08/11/24 13:41) RASH pineapple [PINEAPPLE] Allergy (Unknown, Verified 08/11/24 13:41) HIVES enalaprilat [From Vasotec] Adverse Reaction (Mild, Verified 08/11/24 13:41) Unknown Medication List - Last Reconciled 08/11/24 by Clifton Reese MD albuterol sulfate 2.5 mg (3 mL) inhalation Q4-6H PRN albuterol sulfate 90 mcg/actuation (Ventolin HFA) 2 puffs PO Q8H PRN aspirin 81 mg PO DAILY blood sugar diagnostic (FreeStyle Lite Strips) blood sugar diagnostic As directed dextromethorphan-guaifenesin 10-100 mg/5 mL 10 mL PO Q4-6H PRN docusate sodium 100 mg PO DAILY ferrous sulfate 324 mg PO BIDWM furosemide 20 mg See Protocol PO DAILY hydralazine 10 mg PO TID inhalat.spacing dev,large mask As directed insulin aspart U-100 (Novolog FlexPen U-100 Insulin aspart) See Protocol sliding scale doses subcut TIDWM insulin glargine (Lantus U-100 Insulin) 16 units subcut DAILY@0900 lancets As directed losartan 25 mg PO DAILY magnesium oxide 400 mg PO BID omeprazole 20 mg PO DAILY@0630 pravastatin 20 mg PO BEDTIME prednisone 5 mg PO DAILY verapamil ER 240 mg PO BEDTIME Do you need a note to return to daycare/school/sports/work: No HPI HPI COPD: Details: THIS 84 YEARS OLD VERY PLEASANT LADY, IS HERE FOR PULMONARY FOLLOW-UP. SHE HAS RESTRICTIVE LUNG DISEASE MAINLY BECAUSE OF OBESITY, AND ALSO FEATURES OF MILD BRONCHIAL ASTHMA. SHE HAS BEEN NONSMOKER. SHE IS BEING TREATED WITH PREDNISONE 5 MG A DAY FOR HER CHRONIC ARTHRITIS, SO SHE DOES NOT NEED ANY INHALED STEROIDS. BREATHING SY HAS REMAINED VERY STABLE. HOWEVER IN MAY 2024 SHE WAS HOSPITALIZED BECAUSE OF SEVERE ANEMIA, HEMOGLOBIN DOWN TO 6.4 G. THIS WAS DUE TO CHRONIC IRON DEFICIENCY BECAUSE SHE HAD STOPPED USING IRON SUPPLEMENTS. PATIENT WAS TREATED WITH BLOOD TRANSFUSION AND LATER ON ALSO IRON INFUSION. HER LATEST HEMOGLOBIN HAS BEEN BROUGHT UP TO 10.2. COMPLAINS OF SLIGHTLY INCREASED SHORTNESS OF BREATH ON EXERTION NO COUGH OR WHEEZING . SHE DOES USE THE ALBUTEROL INHALER 1 OR 2 PUFFS ABOUT TWICE A DAY. [facility] Medical History (Updated 08/11/24 @ 13:57 by Clifton Reese MD) Asthma with COPD Anemia Hypoxia Rheumatoid arthritis Cough COPD (chronic obstructive pulmonary disease) Bacteremia due to Streptococcus pneumoniae Benign paroxysmal positional vertigo Arthritis Restrictive lung disease Surgical History Hx of cholecystectomy Family History Mother Diabetes Maternal Grandmother Diabetes Social History Household Members: Children Housing: Apartment Are you a primary care administrative tech to a significant other at home: No Do you presently have visiting nurse or other home services: Yes Alcohol intake: former Patient Tobacco Use Status: Never used Tobacco Cigarette Packs Per Day: 1 service: No Current occupational status: unemployed Review of Systems Const All systems reviewed & are unremarkable except as noted in HPI and below Eyes Reports no additional complaints ENT Reports no additional complaints Card Denies chest pain, Denies irregular heart rhythm and Denies leg edema Resp Reports as per HPI GI Reports no additional complaints Reports no additional complaints Musc Reports abnormal gait (Slow and uses cane), Reports back pain, Reports deformity and Reports muscle weakness (General muscular weakness) Skin/Breast Reports system reviewed and no additional complaints, except as documented Neuro Reports no additional complaints and Reports abnormal gait (Slow and uses cane) Psych Reports no additional complaints Physical Exam Vital Signs: Last Vital Signs Pulse 69 08/11/24 13:28 BP 140/50 H 08/11/24 13:28 Pulse Ox 97 08/11/24 13:28 Oxygen Delivery Method Room Air 08/11/24 13:28 BMI result Body Mass Index 30.7 Const General: comfortable, no acute distress, alert and awake Orientation/consciousness: patient oriented x3 HEENT Head: Yes normal to inspection General nose exam: No nasal polyps present and No nasal discharge present Face and sinus: Yes sinuses nontender Mouth: oropharynx normal Throat: Yes posterior oropharynx normal Eyes General: appearance normal, both eyes and all related structures Neck Neck: Yes normal visual inspection, Yes no lymphadenopathy, Yes trachea midline and Yes no JVD Thyroid: Thyroid normal Chest Chest palpation & inspection: normal inspection of the chest, normal palpation of entire chest wall and no tenderness Resp Other: Percussion note resonant, breath sounds are distant with prolonged expiratory phase. No wheezes or rhonchi or crepitations are heard . Cardio Palpation: normal PMI Rate: regular rate Rhythm: regular rhythm Heart sounds: no gallops and no murmurs GI Palpation (GI): Soft to palpation, nontender, No hepatosplenomegaly present and no masses Auscultation: normal bowel sounds Back/Spine/Pelvis Thoracic/Lumbar Spine: thoracic and lumbar spine normal to inspection and thoraco-lumbar ROM limited Skin General skin exam: no rashes or lesions noted Neuro General: patient oriented x3, No gait normal (Slow and needs the cane for support) and no focal motor deficits Cranial nerves: Yes CN's II-XII intact bilaterally Extrem General: Yes normal to inspection, Yes no clubbing, cyanosis or edema and Yes no calf tenderness Psych Appearance: grossly normal and well kempt Speech and movement: Normal speech and movement present Office Procedures Spirometry Testing Spirometry Comments: Spirometry done in the office, Dr. Reese has the results results scanned to her chart. 34038- Spirometry Results Reviewed Results Reviewed: SPIROMETRY 2019 FVC 60 % 82 % FEV1 62 % 70 % FEF 25-75 60 % 35 % Assessment & Plan Assessment & Plan (1) Restrictive lung disease: Comment: She has MILD restrictive pulmonary disorder which is probably due to obesity. The only treatment she needs is to keep the weight under control and Frequent deep breathing exercises. Code(s): J98.4 - Other disorders of lung Category: Medical Plan: ABOVE (2) Asthma with COPD: Comment: SHE DOES HAVE CHRONIC ASTHMA, WHICH HAS NOW CHANGED INTO ASTHMA /COPD THE OBSTRUCTIVE COMPONENT IS SOMEWHAT WORSE COMPARED TO SPIROMETRY IN 2020. Code(s): J44.89 - Other specified chronic obstructive pulmonary disease Category: Medical Plan: SHE IS ON PREDNISONE 5 MG A DAY FOR HER ARTHRITIS, SO SHE DOES NOT NEED ANY INHALED STEROIDS. OK TO USE ALBUTEROL HFA 2 PUFFS Q 6 HOURS P.R.N. NO MORE THAN 2 OR 3 TIMES A DAY. Orders: Orders AMB Spirometry Testing Today J44.89 - Other specified chronic obstructive pulmonary disease Coding Level of Care Code Est Pt Level 3 (40995) Diagnoses Restrictive lung disease J98.4 Asthma with COPD J44.89 CPT Codes Spirometry - CPT: 50475- Spirometry ([id number])
== END 2024-08-11 13:57 | disposition home or self-care (01) ==
PROVIDERS: PCP Internal Medicine; Visit Provider Internal Medicine
DX: J98.4 Other disorders of lung (principal); J44.89 Other specified chronic obstructive pulmonary disease
CPT/HCPCS: 94010; 99213

== ENCOUNTER → 2024-08-11 13:17 | Outpatient (BNVA) | payer OTHER, SELFPAY | PROVIDERS: PCP Internal Medicine; Visit Provider Internal Medicine | DX: J44.89 Other specified chronic obstructive pulmonary disease (principal); J98.4 Other disorders of lung; E66.9 Obesity, unspecified; Z68.30 Body mass index [BMI] 30.0-30.9, adult | CPT/HCPCS: 94010; 99212 ==

== ENCOUNTER 2024-12-30 16:35 | Emergency (ER) | payer OTHER, SELFPAY ==
[2024-12-30] VITALS (7 sets, daily range): BP systolic 104–171; BP diastolic 37–92; PULSE 53–69; RESP 13–18; TEMP 36.8–36.9; O2SAT 92–96; BMI 30.7
--- NOTE | ~2024-12-30 | CT_ITS ---
CLINICAL HISTORY: right sided abdominal pain tenderness CT abdomen and pelvis without contrast Comparison: None Findings: No consolidation or effusion. Heart size is mildly enlarged. The liver, spleen, pancreas, kidneys and adrenal glands are normal in appearance. Gallbladder is surgically absent. No hydronephrosis. There are few tiny punctate nonobstructing renal calculi, but no evidence of obstructive uropathy. No bowel obstruction, pneumoperitoneum, or pneumatosis. There are scattered colonic diverticula, however no evidence of diverticulitis. Pelvic contents unremarkable. Normal appendix. Small fat containing umbilical hernia. Multilevel degenerative change of the thoracolumbar spine. No lytic or blastic bone lesion. IMPRESSION: No acute findings. This document has been electronically signed by: Joe Colorado MD on 12/30/2024 20:50:06
--- NOTE | ~2024-12-30 | CT_ITS ---
CLINICAL HISTORY: fall, head injury CT head without contrast Comparison: None Findings: No evidence of acute territorial infarct. There is patchy low density in the periventricular and subcortical white matter. Diffuse volume loss is noted. No hydrocephalus. No hemorrhage, mass effect, mass lesion or midline shift. No abnormal extra-axial fluid. No calvarial fracture. Paranasal sinuses and mastoid air cells are clear. Impression: No evidence of an acute intracranial process. Chronic changes as detailed. This document has been electronically signed by: Guy Greer MD on 12/30/2024 19:28:32
--- NOTE | 2024-12-30 17:00 | ECG_ITS ---
Test Reason : SYNCOPEE Blood Pressure : */* mmHG Vent. Rate : 56 BPM Atrial Rate : 56 BPM P-R Int : 150 ms QRS Dur : 148 ms QT Int : 506 ms P-R-T Axes : 75 -8 122 degrees QTcB Int : 488 ms Sinus bradycardia Left bundle branch block Abnormal ECG When compared with ECG of 06-Jun-2024 11:59, No significant change was found Referred By: Generic ED Physician Electronically Signed By: MYA MALCOLM
[2024-12-30 17:38] LABS: MANUAL DIFF FLAG NO
[2024-12-30 17:39] LABS: Basophils Percent Auto 0.2 % (0-2); Eosinophils Absolute Auto 0.5 X10*3/uL (0.0-0.4); Hematocrit 34.4 % (37.0-47.0); Hemoglobin 11.1 g/dl (12.0-16.0); Imm Gran Abs Auto 0.06 X10*3/uL (0.00-0.03); Imm Gran Pct Auto 0.5 % (0.0-0.4); Lymphocytes Absolute Auto 2.6 X10*3/uL (1.2-4.9); Mean Corpuscular HGB Conc 32.3 g/dl (31.0-35.0); Mean Corpuscular Hemoglobin 30.3 pg (27.0-33.0); Mean Platelet Volume 10.2 fL (9.4-12.3); Monocytes Absolute Auto 1.1 X10*3/uL (0.1-1.2); Monocytes Percent Auto 8.3 % (2-11); Neutrophils Absolute Auto 8.8 x10*3/uL (2.0-8.3); Platelet Count 219 X10*3/uL (160-400); Red Blood Count 3.66 X10*6/uL (4.20-5.50); Red Cell Distribution Width 13.8 % (11.0-16.0); White Blood Count 13.1 X10*3/uL (4.8-10.8)
--- NOTE | 2024-12-30 17:40 | MHC.EDTECH ---
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
[2024-12-30 17:53] LABS: Alanine Aminotransferase 11 U/L (0-31); Albumin Level 3.5 g/dL (3.5-5.0); Alkaline Phosphatase 66 U/L (39-117); Anion Gap 12 (12-20); Aspartate Amino Transferase 24 U/L (5-31); Bilirubin Total 0.7 mg/dL (0.0-1.0); Blood Urea Nitrogen 40 mg/dL (9-16); Carbon Dioxide 30 mmol/L (22-29); Chloride 106 mmol/L (96-108); Estimated Glomerular Filt Rate 27; Glucose Random 74 mg/dL (60-115); Potassium 4.6 mmol/L (3.3-5.1); Sodium 143 mmol/L (135-145)
[2024-12-30 18:00] LABS: Troponin-I High Sensitivity 34.1 ng/L (<3.5-17.0)
--- NOTE | 2024-12-30 18:29 | ED_ITS ---
HPI - General Adult General Chief complaint: Syncope Stated complaint: NAUSEA PER EMS Time Seen by Provider: 12/30/24 18:29 History of Present Illness ED Provider: Sondra ESCOBAR narrative: The patient is an 84-year-old female who lives at home with her son. She says she has been feeling well for the last 4 days. She has had a lack of energy. Today she was sitting on her sofa when she had some sense of stomach upset and a need to go to the bathroom. She went to the bathroom and sat on the toilet. She then went to the bathroom and felt very lightheaded. She stood up to splash water on her face when she fainted. Currently she denies headache. She denies neck pain. She is not having any significant ongoing abdominal pain. She has not had any nausea or vomiting. No fever, sweats, chills. Related Data Home Medications ?Medication ?Instructions ?Recorded ?Confirmed aspirin 81 mg tablet,delayed 81 mg PO DAILY 06/15/20 06/06/24 release blood sugar diagnostic #10 ea 06/15/20 02/05/24 inhalat.spacing dev,large mask #1 ea 06/15/20 02/05/24 lancets 30 gauge #100 ea 06/15/20 02/05/24 magnesium oxide 400 mg (241.3 mg 400 mg PO BID 06/15/20 06/06/24 magnesium) tablet omeprazole 20 mg capsule,delayed 20 mg PO DAILY@0630 06/15/20 06/06/24 release blood sugar diagnostic (FreeStyle 02/08/23 02/05/24 Lite Strips) insulin glargine 100 unit/mL 16 unit subcut DAILY@0900 02/08/23 06/06/24 subcutaneous solution (Lantus U-100 Insulin) dextromethorphan-guaifenesin 10 10 ml PO Q4-6H PRN Cough 06/06/24 06/06/24 mg-100 mg/5 mL oral syrup docusate sodium 100 mg capsule 100 mg PO DAILY 06/06/24 06/06/24 hydralazine 10 mg tablet 10 mg PO TID 06/06/24 06/06/24 insulin aspart U-100 100 unit/mL See Protocol subcut TIDWM 11/09/24 11/09/24 (3 mL) subcutaneous pen (Novolog FlexPen U-100 Insulin aspart) losartan 25 mg tablet 25 mg PO DAILY 06/06/24 06/06/24 pravastatin 20 mg tablet 20 mg PO BEDTIME 06/06/24 06/06/24 verapamil 240 mg tablet,extended 240 mg PO BEDTIME 06/06/24 06/06/24 release prednisone 2.5 mg tablet 5 mg PO DAILY 08/11/24 Previous Rx's ?Medication ?Instructions ?Recorded albuterol sulfate 2.5 mg/3 mL 2.5 mg (3 mL) inhalation Q4-6H PRN 02/17/24 (0.083 %) solution for nebulization for wheezing #75 mL albuterol sulfate 90 mcg/actuation 2 puff PO Q8H PRN shortness of 02/17/24 aerosol inhaler (Ventolin HFA) breath or wheezing #18 ea furosemide 20 mg tablet 20 mg PO DAILY #30 tabs 06/15/24 ferrous sulfate 324 mg (65 mg 324 mg PO BIDWM #60 tabs 08/11/24 iron) tablet,delayed release Allergies Allergy/AdvReac Type Severity Reaction Status Date / Time latex [LATEX] Allergy Unknown RASH Verified 12/30/24 17:00 pineapple [PINEAPPLE] Allergy Unknown HIVES Verified 12/30/24 17:00 enalaprilat [From Vasotec] AdvReac Mild Unknown Verified 12/30/24 17:00 Review of Systems 2 Review of Systems: Yes all other systems are reviewed and are negative [facility] Past Medical History Medical History (Updated 12/31/24 @ 00:00 by Rylan Edward) Asthma with COPD Anemia Hypoxia Rheumatoid arthritis Cough COPD (chronic obstructive pulmonary disease) Bacteremia due to Streptococcus pneumoniae Benign paroxysmal positional vertigo Arthritis Restrictive lung disease Surgical History Hx of cholecystectomy Family History Family History Mother Diabetes Maternal Grandmother Diabetes Social History Social History Household Members: Children Housing: Apartment Are you a primary health care administrator to a significant other at home: No Do you presently have visiting nurse or other home services: Yes Unable to assess alcohol history related to: Unknown Alcohol intake: former Patient Tobacco Use Status: Never used Tobacco Cigarette Packs Per Day: 1 service: No Current occupational status: unemployed Physical Exam ED Vital Signs: Vital Signs - 24 hr 12/30/24 16:58 12/30/24 18:27 12/30/24 19:30 Temperature 98.2 F 98.2 F Pulse Rate 55 62 Respiratory Rate 16 16 Blood Pressure 104/37 L 124/46 L Pulse Oximetry 92 96 95 Oxygen Delivery Method Room Air Room Air Room Air 12/30/24 21:01 12/30/24 21:45 12/30/24 23:42 Temperature 98.5 F 98.2 F 98.4 F Pulse Rate 62 69 61 Respiratory Rate 13 18 16 Blood Pressure 142/50 H 161/58 H 171/92 H Pulse Oximetry 95 95 96 Oxygen Delivery Method Room Air Room Air Room Air BMI result Body Mass Index 30.7 Const Other: The patient is a chronically ill-appearing 84-year-old woman. She is awake and alert. She is cheerful and cooperative. She does not appear toxic or in distress. HENMT Other: Face is symmetrical. Mucous membranes not obviously dry. Eyes General: appearance normal, both eyes and all related structures Neck Neck: Yes full ROM and Yes no JVD Resp Effort & Inspection: normal respiratory effort Auscultation: clear to auscultation bilaterally Cardio Rate: regular rate Rhythm: regular rhythm Heart sounds: S1 normal heart sound present and S2 normal heart sound present GI Other: There was some mild right-sided abdominal tenderness. Skin Other: Skin is dry and unremarkable Neuro Other: The patient is awake, alert, pleasant, cooperative. Mental status is normal. Cranial nerves are intact. She moves her extremities symmetrically and appropriately. She has a nonfocal exam. Extrem Other: No calf asymmetry or tenderness Medications Administered Discontinued Medications Generic Name Dose Route Start Last Admin Trade Name Freq PRN Reason Stop Dose Admin Lactated Ringer's 1,000 mls @ 999 mls/hr 12/30/24 18:45 12/30/24 21:00 Lr IV 12/30/24 19:45 Infused .Q1H1M THAD Infusion Lactated Ringer's 1,000 mls @ 999 mls/hr 12/30/24 20:45 12/30/24 20:59 Lr IV 12/30/24 21:45 999 mls/hr .Q1H1M [facility] Administration Medical Decision Making Medical Decision Making [facility] Narrative: The patient is a very pleasant 84-year-old woman who had a syncopal episode in her bathroom after feeling lightheaded on the toilet. She had stood up to splash water on her face when she passed out. It is not clear if she sustained any injuries. It was initially reported that she hit her head. She denies any significant headache. No neck pain. Her C-spine is clinically clear. Her description of the episode sounds like a possible orthostatic or postictal additional syncope. Her laboratory testing suggests some degree of dehydration. Her BUN and creatinine are somewhat worse than previously. She does not seem obviously toxic otherwise however. Her white count is 13 but this seems to be relatively low for her. Her hemoglobin is 11.1 which is stable for her. EKG is stable, old left bundle branch block. Troponins are flat. In CT scan of the abdomen and pelvis shows no acute process in the abdomen. The patient was given 2 L of IV fluids. She seemed to feel better. She felt well enough to go home. She will be discharged to follow up with the regular doctor. She should increase her fluid intake. She should return if worse. Lab Data 12/30/24 17:33 12/30/24 17:33 Labs: Lab Results 12/30/24 12/30/24 12/30/24 Range/Units 17:33 18:27 19:39 WBC 13.1 H (4.8-10.8) X10*3/uL RBC 3.66 L (4.20-5.50) X10*6/uL Hgb 11.1 L (12.0-16.0) g/dl Hct 34.4 L (37.0-47.0) % MCV 94.0 (80.0-98.0) fL MCH 30.3 (27.0-33.0) pg MCHC 32.3 (31.0-35.0) g/dl RDW 13.8 (11.0-16.0) % Plt Count 219 D (160-400) X10*3/uL MPV 10.2 (9.4-12.3) fL Immature Gran % (Auto) 0.5 H (0.0-0.4) % Neut % (Auto) 67.0 (45-73) % Lymph % (Auto) 20.0 (20-40) % [place] % (Auto) 8.3 (2-11) % Eos % (Auto) 4.0 (0-4) % Baso % (Auto) 0.2 (0-2) % Lymph # (Auto) 2.6 (1.2-4.9) X10*3/uL [place] # (Auto) 1.1 (0.1-1.2) X10*3/uL Eos # (Auto) 0.5 H (0.0-0.4) X10*3/uL Baso # (Auto) 0.0 (0.0-0.2) X10*3/uL Abs Immat Gran (auto) 0.06 H (0.00-0.03) X10*3/uL Absolute Neuts (auto) 8.8 H (2.0-8.3) x10*3/uL Absolute Nucleated RBC 0.000 (0.0-0.012) X10*3/uL Nucleated RBC % (auto) 0.0 (0.0-0.2) /100WBC Sodium 143 (135-145) mmol/L Potassium 4.6 (3.3-5.1) mmol/L Chloride 106 (96-108) mmol/L Carbon Dioxide 30 H (22-29) mmol/L Anion Gap 12 (12-20) BUN 40 H (9-16) mg/dL Creatinine 1.80 H (0.5-1.4) mg/dL Estim Creat Clear Calc 20.0 Estimated GFR 27 POC Glucose 71 (60-115) mg/dL Random Glucose 74 (60-115) mg/dL Calcium 9.0 D (8.4-10.2) mg/dL Total Bilirubin 0.7 (0.0-1.0) mg/dL AST 24 (5-31) U/L ALT 11 (0-31) U/L Alkaline Phosphatase 66 (39-117) U/L Troponin I High Sens 34.1 H D (<3.5-17.0) ng/L Total Protein 6.0 L (6.5-8.0) g/dL Albumin 3.5 (3.5-5.0) g/dL Urine Color Yellow Urine Appearance Clear Urine pH 7.0 (5.0-9.0) Ur Specific [place] 1.010 (1.005-1.025) Urine Protein Negative (Neg-Trace) mg/dL Urine Glucose (UA) Negative (Negative) mg/dL Urine Ketones Negative (Negative) mg/dL Urine Blood Negative (Negative) Urine Nitrite Negative (Negative) Ur Leukocyte Esterase Trace H (Negative) Urine RBC 0-2 (0-2) /HPF Urine WBC 0-5 (0-5) /HPF Ur Squamous Epith Cells 0-2 (0-2) /HPF Urine Bacteria None Seen (None Seen) Hyaline Casts 0-2 (0-2) /LPF 12/30/24 Range/Units 21:33 WBC (4.8-10.8) X10*3/uL RBC (4.20-5.50) X10*6/uL Hgb (12.0-16.0) g/dl Hct (37.0-47.0) % MCV (80.0-98.0) fL MCH (27.0-33.0) pg MCHC (31.0-35.0) g/dl RDW (11.0-16.0) % Plt Count (160-400) X10*3/uL MPV (9.4-12.3) fL Immature Gran % (Auto) (0.0-0.4) % Neut % (Auto) (45-73) % Lymph % (Auto) (20-40) % [place] % (Auto) (2-11) % Eos % (Auto) (0-4) % Baso % (Auto) (0-2) % Lymph # (Auto) (1.2-4.9) X10*3/uL [place] # (Auto) (0.1-1.2) X10*3/uL Eos # (Auto) (0.0-0.4) X10*3/uL Baso # (Auto) (0.0-0.2) X10*3/uL Abs Immat Gran (auto) (0.00-0.03) X10*3/uL Absolute Neuts (auto) (2.0-8.3) x10*3/uL Absolute Nucleated RBC (0.0-0.012) X10*3/uL Nucleated RBC % (auto) (0.0-0.2) /100WBC Sodium (135-145) mmol/L Potassium (3.3-5.1) mmol/L Chloride (96-108) mmol/L Carbon Dioxide (22-29) mmol/L Anion Gap (12-20) BUN (9-16) mg/dL Creatinine (0.5-1.4) mg/dL Estim Creat Clear Calc Estimated GFR POC Glucose (60-115) mg/dL Random Glucose (60-115) mg/dL Calcium (8.4-10.2) mg/dL Total Bilirubin (0.0-1.0) mg/dL AST (5-31) U/L ALT (0-31) U/L Alkaline Phosphatase (39-117) U/L Troponin I High Sens 32.8 H (<3.5-17.0) ng/L Total Protein (6.5-8.0) g/dL Albumin (3.5-5.0) g/dL Urine Color Urine Appearance Urine pH (5.0-9.0) Ur Specific [place] (1.005-1.025) Urine Protein (Neg-Trace) mg/dL Urine Glucose (UA) (Negative) mg/dL Urine Ketones (Negative) mg/dL Urine Blood (Negative) Urine Nitrite (Negative) Ur Leukocyte Esterase (Negative) Urine RBC (0-2) /HPF Urine WBC (0-5) /HPF Ur Squamous Epith Cells (0-2) /HPF Urine Bacteria (None Seen) Hyaline Casts (0-2) /LPF Independent Interpretation I performed an independent interpretation of an: EKG Interpretation: EKG at 1702 shows sinus bradycardia. There is a an old left bundle branch block. No change from previous. Discharge Plan Discharge Clinical Impression: Orthostatic syncope, Dehydration Patient Disposition: Home, Self-Care Additional Instructions: I think that you faint today in part because you were dehydrated. Please drink lot of fluids. Please follow up soon with your regular doctor. Call your regular doctor's office in the morning for a follow up appointment soon. Return to the emergency room if significantly worse. Prescriptions: No Action albuterol sulfate 2.5 mg /3 mL (0.083 %) solution for nebulization 2.5 mg inhalation Q4-6H PRN (Reason: for wheezing) Qty: 75 3RF albuterol sulfate [Ventolin HFA] 90 mcg/actuation HFA aerosol inhaler 2 puff PO Q8H PRN (Reason: shortness of breath or wheezing) Qty: 18 3RF insulin glargine [Lantus U-100 Insulin] 100 unit/mL Solution 16 unit SUBCUT DAILY@0900 (DME) FreeStyle Lite Strips Strip MISCELLANEOUS TID ferrous sulfate 324 mg (65 mg iron) Tablet,Delayed Release (Dr/Ec) 324 mg PO BIDWM Qty: 60 1RF losartan 25 mg tablet 25 mg PO DAILY hydralazine 10 mg tablet 10 mg PO TID dextromethorphan-guaifenesin 10-100 mg/5 mL Syrup 10 ml PO Q4-6H PRN (Reason: Cough) docusate sodium 100 mg capsule 100 mg PO DAILY verapamil 240 mg tablet extended release 240 mg PO BEDTIME pravastatin 20 mg tablet 20 mg PO BEDTIME insulin aspart U-100 [Novolog FlexPen U-100 Insulin] 100 unit/mL (3 mL) insulin pen See Protocol subcut TIDWM Protocol: Insulin Correction Scale Less than or equal to 110 ---- Give (units): 0 111 to 150 Give (units): 0 151 to 200 Give (units): 2 201 to 250 Give (units): 4 251 to 300 Give (units): 6 301 to 350 Give (units): 8 Greater than 350 Give (units): 10 Call MD if Blood Glucose > : 350 furosemide 20 mg Tablet 20 mg PO DAILY Qty: 30 0RF Protocol: Hold for SBP< HOLD for SBP < : 90 prednisone 2.5 mg tablet 5 mg PO DAILY Rx Instructions: 7.5 mg for April, 5 mg for May, and 2.5 mg for June/ finished per patient and daughter 08/11/24 PT'S DAUGHTER STATED 5MG DAILY (DME) lancets 30 gauge misc See Rx Instructions .ROUTE .MEDSUPPLY Qty: 100 Rx Instructions: As directed magnesium oxide 400 mg (241.3 mg magnesium) tablet 400 mg PO BID aspirin 81 mg tablet,delayed release (DR/EC) 81 mg PO DAILY (DME) inhalat.spacing dev,large mask Spacer See Rx Instructions .ROUTE .MEDSUPPLY Qty: 1 Rx Instructions: As directed (DME) blood sugar diagnostic Strip See Rx Instructions Not Applicable .MEDSUPPLY Qty: 10 Rx Instructions: As directed omeprazole 20 mg capsule,delayed release(DR/EC) 20 mg PO DAILY@0630 Referrals: Teofilo Moreno III, MD [Physician] - (Dehydration, postural syncope) Interventions: ED Discharge Assessment Last Done: 12/30/24 23:42 Discharge Date/Time: 12/30/24 23:43 Print Language: French
--- NOTE | 2024-12-30 18:29 | MHC.EDTECH ---
1800 rounding done ,vitals taken ,Patient felt her blood sugar was low ,blood suger check ,RN Sangita is aware of result of 71 .
[2024-12-30 19:09] LABS: Glucose, Whole Blood 71 mg/dL (60-115)
--- NOTE | 2024-12-30 19:18 | MHC.EDTECH ---
Patient was given sandwiches and coffee for snack .
[2024-12-30] MEDS: Lactated Ringers 1,000 ML 999 ML IV ×2 (19:26→20:59)
[2024-12-30 20:00] LABS: Appearance Urine Clear; Color Urine Yellow; Glucose Urine UA Negative (Negative); Leukocyte Esterase Urine Trace (Negative); Nitrite Urine Negative (Negative); UMIC TRIGGER UACC YES; Urine Blood Negative (Negative); Urine Ketones Negative (Negative); Urine Protein Negative (Neg-Trace)
[2024-12-30 20:05] LABS: Bacteria Urine None Seen (None Seen); Hyaline Casts Urine 0-2 /LPF (0-2); RBC Urine 0-2 /HPF (0-2); Squamous Epithelial Cell Urine 0-2 /HPF (0-2); WBC Urine 0-5 /HPF (0-5)
--- NOTE | 2024-12-30 21:46 | MHC.EDTECH ---
2nd trop drawn and sent to [facility] ,Patient was assisted unto bed hall ,void care given ,Call velez within Pt reach .
[2024-12-30 22:03] LABS: Troponin-I High Sensitivity 32.8 ng/L (<3.5-17.0)
== END 2024-12-30 23:43 | disposition home or self-care (01) ==
PROVIDERS: Emergency Provider Emergency Medicine
DX: E86.0 Dehydration (principal); R55 Syncope and collapse; S09.90XA Unspecified injury of head, initial encounter; W19.XXXA Unspecified fall, initial encounter; Y93.9 Activity, unspecified; Y92.9 Unspecified place or not applicable; Y99.9 Unspecified external cause status; Z79.899 Other long term (current) drug therapy
CPT/HCPCS: 36415; 70450; 74176; 80053; 81001; 81003; 82947; 84484; 85025; 93005; 96360; 96361; 99285; J7120

== ENCOUNTER → 2024-12-30 17:00 | Outpatient (BNV) | payer OTHER, SELFPAY | PROVIDERS: Emergency Provider Emergency Medicine; Visit Provider Internal Medicine | DX: I44.7 Left bundle-branch block, unspecified (principal); R00.1 Bradycardia, unspecified | CPT/HCPCS: 93010 ==

== ENCOUNTER → 2024-12-30 18:35 | Outpatient (BNV) | payer OTHER, SELFPAY | PROVIDERS: Emergency Provider Emergency Medicine; Visit Provider Radiology Vascular & Interventional Radiology | DX: S09.90XA Unspecified injury of head, initial encounter (principal); W19.XXXA Unspecified fall, initial encounter; R10.9 Unspecified abdominal pain | CPT/HCPCS: 70450; 74176 ==

== ENCOUNTER 2025-02-10 13:16 | Outpatient (AMB) | payer OTHER, SELFPAY ==
[2025-02-10 13:27] VITALS: BP 140/58; PULSE 66; O2SAT 94; BMI 30.5
--- NOTE | 2025-02-10 13:27 | A.OFFVIS_ITS ---
Vital Signs 02/10/25 13:27 Height 4 ft 11 in Weight 151 lb 0.266 oz BMI 30.5 BP 140/58 H Blood Pressure Location Rt brachial Position Sitting Pulse 66 Pulse Source Pulse Oximeter Pulse Oximetry (%) 94 Oxygen Delivery Method Room Air Intake Visit Reasons: COPD Intake Note: pt is here for follow up and has a cough with white phlegm. Psychiatric Social Worker Supervisor Required: No Allergies latex (LATEX) Allergy (Unknown, Verified 02/10/25 13:41) RASH pineapple (PINEAPPLE) Allergy (Unknown, Verified 02/10/25 13:41) HIVES enalaprilat (From Vasotec) Adverse Reaction (Mild, Verified 02/10/25 13:41) Unknown Medication List - Last Reconciled 02/10/25 by Clifton Reese MD albuterol sulfate 2.5 mg (3 mL) inhalation Q4-6H PRN albuterol sulfate 90 mcg/actuation (Ventolin HFA) 2 puffs PO Q8H PRN aspirin 81 mg PO DAILY blood sugar diagnostic (FreeStyle Lite Strips) blood sugar diagnostic As directed docusate sodium 100 mg PO DAILY empagliflozin (Jardiance) 10 mg PO DAILY ferrous sulfate 324 mg PO BIDWM furosemide 20 mg See Protocol PO DAILY hydralazine 10 mg PO TID inhalat.spacing dev,large mask As directed insulin aspart U-100 (Novolog FlexPen U-100 Insulin aspart) See Protocol sliding scale doses subcut TIDWM insulin glargine (Lantus U-100 Insulin) 16 units subcut DAILY@0900 lancets As directed losartan 25 mg PO DAILY magnesium oxide 400 mg PO BID omeprazole 20 mg PO DAILY@0630 polyethylene glycol 3350 (Miralax) 17 grams PO DAILY PRN pravastatin 20 mg PO BEDTIME prednisone 5 mg PO DAILY verapamil ER 240 mg PO BEDTIME Do you need a note to return to daycare/school/sports/work: No HPI HPI COPD: Details: THIS 84 YEARS OLD VERY PLEASANT LADY COMES FOR HER ROUTINE FOLLOW-UP AFTER 6 MONTHS. SHE HAS DONE VERY WELL IN THE LAST 6 MONTHS. NOW SINCE ABOUT 8-10 DAYS AGO SHE IS HAVING SOME COUGH, WITHOUT MUCH EXPECTORATION. SHE DOES NOT RECALL HAVING ANY RESPIRATORY INFECTION. CHANGE IN THE TEMPERATURE AND USE OF AIR CONDITIONING IN THE THIS MAY HAVE TRIGGERED THE COUGH. SHE DENIES ANY NASAL CONGESTION. USES ALBUTEROL JUST PRN WITH SOME RELIEF. SHE IS ALSO USING ROBITUSSIN DM AND THAT REDUCES THE AMOUNT OF COUGH. [facility] Medical History Asthma with COPD Anemia Hypoxia Rheumatoid arthritis Cough COPD (chronic obstructive pulmonary disease) Bacteremia due to Streptococcus pneumoniae Benign paroxysmal positional vertigo Arthritis Restrictive lung disease Surgical History Hx of cholecystectomy Family History Mother Diabetes Maternal Grandmother Diabetes Social History Household Members: Children Housing: Apartment Are you a primary career technical education instructor to a significant other at home: No Do you presently have visiting nurse or other home services: Yes Unable to assess alcohol history related to: Unknown Alcohol intake: former Patient Tobacco Use Status: Never used Tobacco Cigarette Packs Per Day: 1 service: No Current occupational status: unemployed Review of Systems Const All systems reviewed & are unremarkable except as noted in HPI and below Eyes Reports no additional complaints ENT Reports no additional complaints Card Denies chest pain, Denies irregular heart rhythm and Denies leg edema Resp Reports as per HPI GI Reports no additional complaints Reports no additional complaints Musc Reports abnormal gait (Slow and uses cane), Reports back pain, Reports deformity and Reports muscle weakness (General muscular weakness) Skin/Breast Reports system reviewed and no additional complaints, except as documented Neuro Reports no additional complaints and Reports abnormal gait (Slow and uses cane) Psych Reports no additional complaints Physical Exam Vital Signs: Last Vital Signs Pulse 66 02/10/25 13:27 BP 140/58 H 02/10/25 13:27 Pulse Ox 94 02/10/25 13:27 Oxygen Delivery Method Room Air 02/10/25 13:27 BMI result Body Mass Index 30.5 Const General: comfortable, no acute distress, alert and awake Orientation/consciousness: patient oriented x3 HEENT Head: Yes normal to inspection General nose exam: No nasal polyps present and No nasal discharge present Face and sinus: Yes sinuses nontender Mouth: oropharynx normal Throat: Yes posterior oropharynx normal Eyes General: appearance normal, both eyes and all related structures Neck Neck: Yes normal visual inspection, Yes no lymphadenopathy, Yes trachea midline and Yes no JVD Thyroid: Thyroid normal Chest Chest palpation & inspection: normal inspection of the chest, normal palpation of entire chest wall and no tenderness Resp Other: Percussion note resonant, breath sounds are distant with prolonged expiratory phase. No wheezes or rhonchi or crepitations are heard . Cardio Palpation: normal PMI Rate: regular rate Rhythm: regular rhythm Heart sounds: no gallops and no murmurs GI Palpation (GI): Soft to palpation, nontender, No hepatosplenomegaly present and no masses Auscultation: normal bowel sounds Back/Spine/Pelvis Thoracic/Lumbar Spine: thoracic and lumbar spine normal to inspection and thoraco-lumbar ROM limited Skin General skin exam: no rashes or lesions noted Neuro General: patient oriented x3, No gait normal (Slow and needs the cane for support) and no focal motor deficits Cranial nerves: Yes CN's II-XII intact bilaterally Extrem General: Yes normal to inspection, Yes no clubbing, cyanosis or edema and Yes no calf tenderness Psych Appearance: grossly normal and well kempt Speech and movement: Normal speech and movement present Assessment & Plan Assessment & Plan (1) Restrictive lung disease: Comment: She has MILD restrictive pulmonary disorder which is probably due to obesity. The only treatment she needs is to keep the weight under control and Code(s): J98.4 - Other disorders of lung Category: Medical Plan: Frequent deep breathing exercises. AND TRY TO LOSE A FEW LB OF WEIGHT. (2) Asthma with COPD: Comment: SHE DOES HAVE CHRONIC ASTHMA, WHICH HAS NOW CHANGED INTO ASTHMA /COPD THIS HAS BEEN MILD AND WELL CONTROLLED. BUT SHE IS PRONE TO HAVE AN ACUTE EXACERBATION AFTER ANY RESPIRATORY INFECTION. CURRENTLY THERE IS NO EVIDENCE OF ANY ACUTE INFECTION. Code(s): J44.89 - Other specified chronic obstructive pulmonary disease Category: Medical Plan: ADVISED TO USE ALBUTEROL HFA 2 PUFFS Q 6 HOURS P.R.N. OR MAY USE ALBUTEROL SOLUTION IN THE NEBULIZER Q 6 HOURS P.R.N. FOR INCREASED BOUTS OF COUGH OR WHEEZING (3) Cough: Comment: COMPLAINS OF INCREASED COUGH IN THE PAST FEW WEEKS. BUT DENIES HAVING HAD ANY UPPER RESPIRATORY INFECTION. IT MAY BE DUE TO CHANGE IN THE CLIMATE, Code(s): R05.9 - Cough, unspecified Category: Medical Plan: AGAIN ADVISED TO DO GARGLING WITH WARM WATER 2 OR 3 TIMES A DAY. USE ROBITUSSIN DM 1 OR 2 TSP T.I.D. TO CONTROL COUGH. ALSO USE ALBUTEROL SOLUTION IN THE NEBULIZER Q 6 HOURS P.R.N.. Coding Level of Care Code Est Pt Level 3 (77676) Diagnoses Restrictive lung disease J98.4 Asthma with COPD J44.89 Cough R05.9
--- OUTSIDE RECORDS SUMMARY | 2025-02-10 14:06 | XMS_ITS | Data Portability ---
Author Organization [facility], Main Office Address [address] [facility] [facility], [address] [place] [address] Care Team Providers Care Octave Board Assembler Name Role Phone WAGNER RAMIREZ - 3RD FLOOR OTHER KENISHA PARSONS Primary Care Provider [phone] Assessment No assessment recorded. Plan of Treatment Reminders Order Date Submit Date Provider Last Modified By Organization Details Last Modified Time Details Appointments None record ed. Lab None record ed. Referral None record ed. Procedures None record ed. Surgeries None record ed. Imaging None record ed. Medication Orders None record ed. Patient TargetsNo targets recorded. Patient Instructions Encounter Date Encounter Id Patient Instructions Last Modified By Organization Details Last Modified Time 06/16/2024 [id number] medicines to avoid with kidney disease: care instructions [email or web address] Not available 06/16/2024 12:15:35 Reason for Referral None Reported. Problems Name Problem SNOMED Code Status Onset Date Resolution Date Notes Provider Name and Address Organization Details Recorded Time Asthenia 45832207 Active 2023 MARIBEL BLANCHARD NP [address] [facility], [address], [place], [address], [facility] 4 11:18:54 Chronic obstructiv e pulmonary disease 90482963 Active 2023 MARIBEL BLANCHARD NP [address] [facility], [address], [place], [address], [facility] 4 11:19:06 Asthma 170365127 Active 2023 MARIBEL BLANCHARD NP [address] [facility], [address], [place], [address], [facility] 4 11:19:15 Hypertensi ve disorder 44535674 Active 2023 MARIBEL BLANCHARD NP [address], [address], [place], [address], [facility] 4 11:19:23 Insulin treated type 2 diabetes mellitus 670977086 Active 2023 MARIBEL BLANCHARD NP [address], [address], [place], [address], [facility] 4 11:19:52 Heart failure with normal ejection fraction 007127223 Active 2023 MARIBEL BLANCHARD NP [address], [address], [place], [address], [facility] 4 11:20:11 Severe pulmonary hypertensi on 004382674 Active 2023 MARIBEL BLANCHARD NP [address] [facility], [address], [place], [address], [facility] 4 11:20:24 Rheumatoid arthritis 66015529 Active 2023 on chronic prednisone MARIBEL BLANCHARD NP [address] [facility], [address], [place], [address], [facility] 4 11:21:07 Chronic anemia 314578996 Active 2023 followed by Hematology , Dr. Roddy BLANCHARD NP [address] , [address], [place], [address], [facility] 4 11:23:40 Hyperlipid emia 17999011 Active 2023 MARIBEL BLANCHARD NP [address] [facility], [address], [place], [address], [facility] 4 11:21:27 Chronic kidney disease stage 3 935148807 Active 2023 MARIBEL BLANCHARD NP [address] , [address], [place], [address], [facility] 4 11:30:57 Acute respirator y failure 48151982 Active 2023 MARIBEL BLANCHARD NP [address], [address], [place], [address], [facility] 4 11:31:20 Gastroesop hageal reflux disease without esophagiti s 859094476 Active 2023 MARIBEL BLANCHARD NP [address] [facility], [address], [place], [address], [facility] 4 12:13:02 Aspirin therapy finding 511941441 Active 2023 MARIBEL BLANCHARD NP [address], [address], [place], [address], [facility] 4 12:13:26 Hypomagnes emia 853540556 Active 2023 MARIBEL BLANCHARD NP [address] [facility], [address], [place], [address], [facility] 4 12:13:44 Problem Notes None recorded. Medical Equipment None Reported. Allergies Allergen ID Allergen Name Allergen Category Reaction Reaction Severity Criticality Documentation Date Start Date Code Code System Note Provider Name and Address Organization Details Recorded Time 98618 Lasix medicatio n Not available Not available Not available 06/16/2024 19726 1 RxNorm MARIBEL BLANCHARD NP [address] [facility], [address], [place], [address], [facility] 4 11:18:20 03927 Vasotec medicatio n Not available Not available Not available 06/16/2024 81304 1 RxNorm MARIBEL BLANCHARD NP [address] [facility], [address], [place], [address], [facility] 4 11:18:06 33410 pineapple extract food Not available Not available Not available 06/16/2024 45351 74 RxNorm MARIBEL BLANCHARD NP [address] [facility], [address], [place], [address], [facility] 4 11:18:12 55492 latex environme nt,medica tion Not available Not available Not available 06/16/2024 35799 91 RxNorm MARIBEL BLANCHARD NP [address] [facility], [address], [place], [address], [facility] 4 11:18:26 Vitals Date Recorded Heart rate Respiratory rate Body temperature Oxygen saturation Oxygen saturation in Arterial blood by Pulse oximetry Systolic And Diastolic Provider Name and Address Organization Details Last Updated DateTime 4 80 /min 18 /min 98.2 [degF] 97 % 97 % 135/72 mm[Hg] MARIBEL BLANCHARD NP [address] [facility], [facility] [address], [place], [address], [facility] 4 11:12:07 Date Recorded Body height Body mass index (BMI) Body weight Heart rate Respiratory rate Body temperature Oxygen saturation Oxygen saturation in Arterial blood by Pulse oximetry Systolic And Diastolic Provider Name and Address Organization Details Last Updated DateTime 4 152.4 cm 30.5 kg/m2 10930.4 1 g 60 /min 18 /min 98 [degF] 97 % 97 % 144/69 mm[Hg] Tracie Arango MD [address] [place] [address], [place], [address], [facility] 4 17:29:35 Date Recorded Body height Body mass index (BMI) Body weight Heart rate Respiratory rate Body temperature Oxygen saturation Oxygen saturation in Arterial blood by Pulse oximetry Systolic And Diastolic Provider Name and Address Organization Details Last Updated DateTime 4 152.4 cm 30 kg/m2 42833.7 9 g 68 /min 16 /min 97.2 [degF] 98 % 98 % 132/67 mm[Hg] Tracie Arango MD [address] [place] [address], [facility] [address], [place], [address], [facility] 4 13:49:38 Social History Question Answer Notes LastModified by Organizat ion Details LastModified Time Tobacco Smoking Status Former Smoker quit 1984 Tracie Arango MD [address] [place] [address], [facility] [address], [place], [address], [facility] 06/19/2024 19:56:29 Do You Have An Advance Directive? Yes [email or web address] Information not available 06/19/2024 What Is Your Code Status? Full Code No Dialysis [email or web address] Information not available 06/16/2024 Where Do You Live? [facility] Lives With Son And Grand Son, Son Is Disabled In Wheelchair, Doesn't Talk. Grandson Is In His 40s. [email or web address] Information not available 06/19/2024 Legal Guardian? No Informati on not available 06/19/2024 Do You Have A Medical Power Of Vp Of [employer] Marketing? Yes Has HCP [email or web address] Information not available 06/16/2024 What Was The Date Of Your Most Recent Tobacco Screening? 06/19/2024 Information not available 06/19/2024 Do You Have An Out Of Hospital DNR? No Information not available 06/19/2024 What Is Your Relationship Status? Information not available 06/19/2024 How Much Tobacco Do You Smoke? No Information not available 06/19/2024 Has Tobacco Cessation Counseling Been Provided? No N/a As Pt No Longer Smokes Information not available 06/19/2024 Sex: Unknown Functional Status Question Answer Note LastModified by Organizat ion Details LastModified Time Do you use any illicit or recreational drugs? No [email or web address] Information not available 06/16/2024 Do you or have you ever used any other forms of tobacco or nicotine? No [email or web address] Information not available 06/16/2024 What is your level of alcohol consumption? None [email or web address] Information not available 06/16/2024 Mental Status None recorded. Family History Relationship Description Onset Age of this Age Resolved Age Notes LastModified by Organization Details LastModified Time Mother Harmful pattern of use of alcohol Not available 2023 11:52:31 Medical History No medical history recorded. Gynecological HistoryNo gynecological history recorded. Obstetrics History GPAL:G 0 P 0 0 0 0 Immunizations Vaccine Type Date Status Note Provider Nam e and Address Organization Details Recorded Time Tdap 3 completed Chloé Mar [facility] 06/16/2024 14:03:38 Td(adult) unspecified formulation 4 completed Chloé Mar [facility] 06/16/2024 14:03:59 Td(adult) unspecified formulation 7 completed Chloé Mar [facility] 06/16/2024 14:04:08 pneumococcal polysaccharide PPV23 6 completed Chloé Mar [facility] 06/16/2024 14:04:29 pneumococcal polysaccharide PPV23 9 [facility] 14:04:39 influenza, unspecified formulation 2 [facility] 14:04:55 influenza, unspecified formulation 4 [facility] 14:05:03 Past Encounters Encounter ID Performer Location Encounter Start Date Encounter Closed Date Diagnosis/Indication Diagnosis SNOMED-CT Code Diagnosis ICD10 Code Diagnosis Note [id number] MARIBEL BLANCHARD NP [facility] [address] [place] [address] 06/16/2024 11:11:14 06/17/2024 08:48:38 Asthenia 59223510 R53.1 Deconditio jose due to recent hospitaliz ation and acute illnessPT OT eval and tx.Goal is to return home. Chronic ob structive pulmonary disease 04514776 J44.9 And asthmaSee above.Cont inue:Slow prednisone taper - 5 mg qd in May, then 2.5 mg qd in Jun., then stopPRN Robitussin DMPRN albuterol nebs and MDIMonitor resp. status. Acute resp iratory failure 73726114 J96.00 Multifacto rial - COPD, CHF, and anemiaTrea jamar with nebs, antitussiv es, IV abx, O2, steroids, and PRBC and Fe transfusio ns with improvemen t in condition. Currently on:Slow pred. taper, 5 mg qd in May, then 2.5 mg qd in Jun., then stop.Lasix 20 mg qdFe 325 mg bidRobitus sin DM prnPRN albuterol nebs and MDIMonitor resp. status, sats, VS, labs closely Heart fail ure with normal ejection fraction 772302795 I50.33 See above.Cont inue lasix 20 mg qdMonitor VS, LS, sats, CP status, labs for decompensa tion Chronic anemia 844174154 D64.9 Hgb 6.3 upon admit to [facility] d by [facility]anya outpt., Dr. Patino non compliant with po Fe at home due to constipati on.Transfu sed with 2 U PRBCs as well as IV Venofer with improvemen t in Hgb. to 10.5 today.Cont inue Fe 325 mg bid with meals as well as daily Vit C.Daily colace added for bowels - adjust as needed to maintain bowel regularity .CBC q saturdayUpda te Dr. Roddy brandt concerns Severe pul monary hypertension 257013352 I27.20 CV meds as above Insulin tr eated type 2 diabetes mellitus 620171707 Z79.4 Continue:L antus 16 units dailyNovol og SSI with mealsMonit or BS and adjust meds prn Hypertensive disorder 38 390244 I10 Continue home meds:Verap celia ER 240 mg qdLosartan 25 mg qdHydralaz ine 10 mg tidAdded lasix 20 mg qd in the hospitalTr end VS daily, BMP q Saturday, adjust meds prn Chronic ki dney disease stage 3 669826599 N18.30 Bump in Creat, with IV diuresis in hosp., now improved, back to baseline (1.46)Now on lasix 20 mg qd, losartan resumed upon d/cMaintai n hydrationB MP q Saturday to monitor Rheumatoid arthritis 698 74732 M06.9 No joint pain at present except chronic left elbow.On daily prednisone for COPD, suspect she is getting some benefit from this.APAP available prnMonitor Hyperlipidemia 28645314 E78.5 Continue pravastati n 20 mg qd Aspirin th erapy finding 163591045 Z79.82 On ASA 81 mg qd, unsure as to why, ? benefit in 83 yo elder, but will defer decision to PCP Hypomagnesemia 721451046 E83.42 On Mag Ox 400 mg bidCheck Mg level q Saturday, adjust as needed [id number] Tracie Arango MD [facility] [address] [address] 06/19/2024 17:02:55 2024 11:50:08 Asthenia 90711217 R53.1 Very deconditio jose.Needs PT/OT for strengthen ing, balance, gait training, safety and function.C ontinue fall precaution s.Monitor for safety. Acute resp iratory failure 95773580 J96.00 As above. Chronic ob structive pulmonary disease 32976624 J43.8 COPD/asthm a crossover syndrome.C ontinue slow prednisone taper 5 mg qd until 06/28 then 2.5 mg qd x 1 month and then d/c., she has been on prednisone chronicall y for RA, but tapering off.PRN Robitussin DMPRN albuterol nebs and MDIMonitor resp. status. Heart fail ure with normal ejection fraction 267120208 I50.33 Appears euvolemic. Continue meds as above.Abby tor resp. status, fluid status, wts and labs. Hypertensive disorder 38 590808 I10 In good control since here.Shay nue verapamil ER 240 mg qd, losartan 25 mg qd, hydralazin e 10 mg TID, and lasix 20 mg qd.Monitor BP and labs Chronic anemia 994842223 D64.89 Hgb 6.3 upon admit to [facility] d by Heme outpt., Dr. Patino non compliant with po Fe at home due to constipati on.Transfu sed with 2 U PRBCs as well as IV Venofer with improvemen t in Hgb. to 10.5 today.Cont inue Fe 325 mg BID with meals along with Vit C 500 mg qd for absorption .Continue colace qd to prevent constipati on.Monitor labs.F/U with heme as planned. Severe pul monary hypertension 691172917 I27.29 Med and f/u as above. Insulin tr eated type 2 diabetes mellitus 065421061 E11.22 In good control since here.Shay nue Lantus 16U qd and SSI.Monito r fingerstic ks TID and HgA1C q 3 months. Chronic ki dney disease stage 3 638332572 N18.32 Back to baseline.C ontinue to avoid nephrotoxi c meds as able.Monit or labs.Renal f/u as planned. Rheumatoid arthritis 698 80401 M06.89 Stable at this time.Shay nue prednisone taper as above and APAP 650 mg q 4 hrs prn.Monito r sxs. Hyperlipidemia 06873000 E78.49 Continue pravastati n 20 mg qd and ASA 81 mg qd.Monitor labs as outpt. Hypomagnesemia 991180817 E83.42 Continue Mag Ox 400 mg BID.Monito r Mg weekly. [id number] Tracie Arango MD [facility] [place] [address] 06/30/2024 13:45:24 07/01/2024 10:43:59 Chronic obstructive pulmonary disease 98184508 J43.8 COPD/asthm a crossover syndrome.C ontinue slow prednisone taper 2.5 mg qd x 1 month (end date 07/28) and then d/c., she has been on prednisone chronicall y for RA, but tapering off.Contin ue albuterol nebs/MDI prn for sxs.F/U with PCP Asthenia 35105064 R53.1 Much improved.C an continue PT/OT at home for further strengthen ing, balance, safety and function.F /U with PCP Chronic anemia 654910161 D64.89 Stable since here.Sl. drop yesterdayC ontinue Fe 325 mg BID with meals along with Vit C 500 mg qd for absorption .Continue colace qd to prevent constipati on.Monitor labs as outpt.F/U with heme as planned. Hypertensive disorder 38 174778 I10 Has been in good control while here.Shay nue verapamil ER 240 mg qd, losartan 25 mg qd, hydralazin e 10 mg TID, and lasix 20 mg qd.F/U with PCP as outpt. Heart fail ure with normal ejection fraction 574457322 I50.33 Continues to appear euvolemic. Continue meds as above.F/U as outpt. Severe pul monary hypertension 382679095 I27.29 Med and f/u as above. Acute resp iratory failure 85617421 J96.00 As above. Insulin tr eated type 2 diabetes mellitus 184183425 E11.22 In good control since here.Shay nue Lantus 16U qd and SSI.F/U as outpt. Chronic ki dney disease stage 3 552384602 N18.32 Remains at baseline.C ontinue to avoid nephrotoxi c meds as able.Monit or labs.Renal and PCP f/u as planned. Rheumatoid arthritis 698 27117 M06.89 Stable at this time.Shay nue prednisone taper as above and APAP 650 mg q 4 hrs prn.F/U with rheum and PCP as outpt. Hyperlipidemia 02508926 E78.49 Continue pravastati n 20 mg qd and ASA 81 mg qd.Monitor labs as outpt. Hypomagnesemia 710577484 E83.42 Remains WNL on current supplement .Continue Mag Ox 400 mg BID.Monito r Mg as outpt. Health Concerns Section Related Observation LastModified by Organization Detkaiden ls LastModified Time None Recorded Concern Status LastModified by Organization Details LastModified Time None Recorded Advance Directives Directive Y: Payers Insurance Date Sequence Insurance Name Policy Number Policy Merida Covered Member ID Merida Member ID Guarantor Name 06/30/2024 1 [facility] - DOS ON OR AFTER 2022 - MEDICARE ADVANTAGE [place] (MEDICARE REPLACEMENT/AD VANTAGE - PPO) Leann Almanzar [id number] Leann Almanzar Notes Date Note Type Note Provider Name and Address Organization Details Recorded Time 4 text/html Leann is seen today for initial intake.She is an 83 yo lady, admitted to [facility] 06/15/24 from [facility] for continued care and rehab after a brief hospitalization due to COPD exacerbation. She presented to [facility] 06/06/24 with 3 days of worsening SOB. Noted to also have some elg edema, had not been taking her lasix for quite some time. In ER, Elevated HR and RR, hypoxic into the 80s on RA. Labs showing wbc 16.3, hgb 6.3, Na 147, lactic acid 2.6, BNP 753. Kidney and liver function at baseline. Viral panel neg., Stool neg. for OB. CXR - R base streaky opacity, ? atelectasis, infectious, or inflammatory in nature. EKG sinus gillian with LBBB, similar to prior.Admitted for acute hypoxic resp. failure in the setting of ACD and acute CHF and COPD exac.. Started duonebs, solumedrol, antitussives, O2, and doxy with improvement. Steroids changed to po, and completed 5 days of IV abx. IV lasix given, but stopped due to worsening kidney function (Cr. 1.5 -> 1.93). Losartan held. Eventually started low dose lasix. Other BP meds continued (hydralazine, verapamil).Anemia also addressed, Fe level 17 with % sat 5. Had been on po Fe at home, but stopped due to constipation. Given 2 U of PRBCs, IV venofer, and instructed to resume po Fe along with stool softeners. VSSBS 100sLabs 06/16 - wbc 20.9, hgb. 10.5, Bun 40, Cr. 1.46.Upon exam, Leann is up in a chair, alert, NAD, in good spirits, says she is feeling better. Denies feeling dizzy, no headache. No SOB, still with an occasional cough, productive at times. No CP. NO GI or complaints at this time. No pain except left elbow area - chronic pain for years, surgery recommended but pt. declined. VERGARA: mod. fall risk PMH: asthma, COPD, HTN, DM2, HFpEF, severe pHTN, RA on chronic prednisone, chronic anemia, HLD, [id number]: full code, no dialysis MARIBEL BLANCHARD NP [address] [facility], [address], [place], [address], [facility] [employer] 06/16/2024 12:16:06 4 text/html This is an 83 yo woman who is here for rehab after an acute hospitalization for a COPD exacerbation and severe anemia.She presented to the [facility] ED on 06/06 with worsening SOB and cough, not responding to home inhalers. Also had noticed increased ankle swelling. Per d/c summary:History and physical as per admitting provider. Pt is an 83-year-old female with a PMH significant for Asthma/COPD, HTN, insulin-dependent type 2 diabetes, HFpEF, severe pulmonary hypertension, RA on chronic prednisone, chronic anemia, and HLD whopresents to the ED with worsening SOB and BRAXTON x3 days. Symptoms began approximately 2 weeks ago, though have worsened in the past 3 days. SOB particularly pronounced with exertion, and patient reports using her inhaler frequently during the day without much relief. Has hadnonproductive cough. Denies orthopnea, PND. Also experiencedincreased lower leg edema. Patient previously on Lasix but has not been taking it for quite some time. Denies hematemesis or hemoptysis. No melena or hematochezia. Denies fever, chills, nausea, vomiting, abdominal pain. No chest pain/pressure, or palpitations. Of note, patientfollows with Dr. Pereyra for chronic anemia. Patient has not been taking iron supplementation due to constipation. In the EDpt was tachycardic up to 97, tachypneic up to 26, and with variable BP as low as 131/44, and desatting into the 80s on RA. Labs were significant for leukocytosis 16.3, H&H 6.3/21.1, sodium 147, BUN 27, lactic acid 2.6, and BNP 753. Renal function around baseline. Hepatic function WNL. Stool negative for occult blood.Tested negative for flu, RSV, and COVID. CXR showed streaky opacity in the retrocardiac region of right lung base possibly reflecting atelectasis or infectious/inflammatory process. EKG demonstrated sinus bradycardia with LBBB, similar to previous. Pt wastreated with DuoNebs, Solu-Medrol and doxycycline. 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 Change to oral prednisone. Treated and completed 5 days of IV antibiotics.Symptomatic anemia. Initial H&H 6.3/21.1, likely secondary to anemia of chronic disease due to CKD stage III. No hemoptysis, hematemesis, melena or hematochezia. Stool occult negative. Iron low at 17 with saturation at 5% and TIBC within normal limits. Patient has stopped taking her iron supplementation months ago due to constipation. She didreceive 2 units of packed red blood cellswith improvement in her H&H.Case discussed with Dr. Pereyra s/p IV Venofer x1, continue oral supplement, will discharge on stool softeners.Acute hypoxic respiratory failure in the setting of HFpEF exacerbation. Initially treated with IV Lasix but stopped due to renal function worsening.Echocardiogram showed EF of 55-60% with [id number] aortic valve stenosis, small loculated pericardial effusion overlying the left ventricle, abnormal diastolic function. Weaned to room air and started on low-dose Lasix She was transferred here on 06/15.Since here she has been working with rehab and improving.I see her with a portuguese speaking staff member.She says she is feeling better and getting some strength back. Her PMH includes HTN, asthma/COPD crossover, AODM, CHF pEF, severe pulmonary HTN, CKD stage 3, anemia, HLD, and RA on chronic prednisone. Tracie Arango MD [address] [facility], [address], [place], [address], [facility] [email or web address] 06/30/2024 13:43:36 4 text/html I am seeing this 83 yo woman today in anticipation fo rd/c later today.She was admitted on 06/15 after a hospitalization for COPD exacerbation and severe anemia. She presented to the [facility] ED on 06/06 with worsening SOB and cough, not responding to home inhalers. Also had noticed increased ankle swelling.She was found to have tachycardia and tachypnea and was desatting into the 80s on RA.Her hgb was 6.3 and WBC was 16.3.CXR showed streaky retrocardiac opacity.She was txed withDuoNebs, Solu-Medrol and doxycycline.She was transfused and given IV venofer.She was initially diuresed, but this was stopped when renal function bumped.See admission H&P for details. She was transferred here on 06/15.She has progressed well with rehab. She is walking 150' with a walker and SBA. She is independent for ADLs.Rehab feels she could benefit from further strengthening, but with handicapped accessible home and 24 hr in home support is safe to go home.I see her while she is listening to a music performance in the dining room.She denies c/o and feels ready to go home. Her PMH includes HTN, asthma/COPD crossover, AODM, CHF pEF, severe pulmonary HTN, CKD stage 3, anemia, HLD, and RA on chronic prednisone. Tracie Arango MD [address] [facility], [address], [place], [address], [facility] [email or web address] [facility] 06/30/2024 14:32:06 OBGyn Episode No OBEpisode recorded.
--- OUTSIDE RECORDS SUMMARY | 2025-02-10 14:06 | XMS_ITS | Clinical Summary ---
Author Organization [facility] Address [address] [place] [address] Care Team Providers Care Quality Control Lead Name Role Phone Unavailable Primary Care Provider Unavailabl e Source Comments PLEASE NOTE, if this patient is a minor, it may be UNLAWFUL to discuss sensitive information that is contained in these records (such as FAMILY PLANNING, MENTAL HEALTH or SUBSTANCE ABUSE) with the minor patient's parent or other person without the patient's specific authorization.[facility] Social History Tobacco Use Types Packs/Day Years Used Date Smoking Tobacco: Never Assessed Social Connections Answer Date Recorded Social Connections and Isolation 0 02/09/2020 Financial Resource Strain Answer Date R ecorded Financial Resource Strain 0 2019 Stress Answer Date Recorded Stress 0 02/09/2020 Physical Activity Answer Date Recorded Physical Activity 0 02/09/2020 Food Insecurity Answer Date Recorded Food 0 02/09/2020 Transportation Needs Answer Date Record ed Transportation 0 02/09/2020 Housing Stability Answer Date Recorded Housing 0 02/09/2020 Safety and Environment Answer Date Roe rded Safety 0 02/09/2020 Utilities Answer Date Recorded Utilities 0 02/09/2020 Employment Answer Date Recorded Employment 0 02/09/2020 Comments Unknown Sex and Gender Information Value Date Recorded Sex Assigned at Not on file Legal Sex Female 10:03 AM PDT Gender Identity Not on file Sexual Orientation Not on file Last Filed Vital Signs Vital Sign Reading Time Taken Comments Blood Pressure - - Pulse - - Temperature - - Respiratory Rate - - Oxygen Saturation - - Inhaled Oxygen Concentration - - Weight 74.8 kg (165 lb) 01/04/2015 10:20 AM EDT Height 152.4 cm (5') 01/04/2015 10:20 AM EDT Body Mass Index 32.22 01/04/2015 10:20 AM EDT Plan of Treatment Not on file Insurance [place]
--- OUTSIDE RECORDS SUMMARY | 2025-02-10 14:07 | XMS_ITS | Patient Health Record ---
Author Organization [facility] Address [address] [place] [address] Care Team Providers Care Window Shade Cloth Sewer Name Role Phone Warren Gallardo Primary Care Provider Titi Romero Unavailable [phone] Rochelle Garcia Unavailable Unavailable Allergies Allergen (clinical drug ingredient) Drug/Non Drug Allergy documented on EMR Reaction Allergy Type Onset Date Status amlodipine Norvasc shock Drug Allergy Active Reason For Referral No Information Medications Medication SIG (Take, Route, Frequency, Duration) Notes Start Date End Date Status Prilosec 20 MG 1 capsule Orally Onc e a day Active Vitamin C 500 MG Orally Act lauryn B12 Liquid Health Booster Active Verapamil HCl ER 360 MG 1 tablet in the morning with food Orally Once a day Active Voltaren-XR 100 MG 1 tablet Orally Once a day Active metFORMIN HCl 1000 MG 1 tablet with meal s Orally Twice a day Active glipiZIDE XL 2.5 MG 1 tablet Orally Once a day Active ProAir HFA 108 (90 Base) MCG/ACT 2 puffs as needed Inhalation every 4 hrs Active DuoNeb 0.5-2.5 (3) MG/3ML 3 ml Inhalatio n Four times a day Active Vitamin D (Ergocalciferol) 79395 UNIT 1 capsule Orally Active Methotrexate 1 tab Oral Active predniSONE 5 MG 1 tablet with food o r milk Orally Once a day Active Diovan 320 MG 1 tablet Orally Once a day Active Actos 15 MG 1 tablet Orally Once a day Active Problems Problem Type SNOMED Code ICD Code Onset Dates Problem Status W/U Status Risk Notes Problem GERD (gastroesophage al reflux disease) (530.81) Active confirmed Problem Iron deficiency anemia (50259308) Anemia, iron deficiency (280.9) Active confirmed Plan Of Treatment Future Test Test Name Order Date UPPER GI ENDOSCOPY 12/01/2013 COLONOSCOPY 12/01/2013 Insurance Providers Payer Name Payer Address Payer Phone Subscriber Number Group Number Insured Name Patient Relationship to Insured Coverage Start Date Coverage End Date [facility] [address] [place] [phone] [id number] ESTRELLA WELLINGTON Self - patient is the insured Medical (General) History Medical History History ICD Code NIDDM asthma Rheumatoid arthritis Denies [place],CVA,renal disease Neg. screening colonoscopy with Dr. Hua in 2007 HTN GERD Arthritis Iron deficiency anemia-sees Dr. Garcia--12/2013 she had a neg. colonnoscopy and EGD--duodenal bx neg for celiac disease, small HH Surgical History Surgery Date(Month/Year) CCY BTL
== END 2025-02-10 13:48 | disposition home or self-care (01) ==
LOC: HO.HPS 13:17
PROVIDERS: PCP Internal Medicine; Visit Provider Internal Medicine
DX: J98.4 Other disorders of lung (principal); J44.89 Other specified chronic obstructive pulmonary disease; R05.9 Cough, unspecified
CPT/HCPCS: 99213

== ENCOUNTER → 2025-02-10 13:16 | Outpatient (BNVA) | payer OTHER, SELFPAY | PROVIDERS: PCP Internal Medicine; Visit Provider Internal Medicine | DX: J44.89 Other specified chronic obstructive pulmonary disease (principal); J98.4 Other disorders of lung; R05.9 Cough, unspecified | CPT/HCPCS: 99212 ==

== ENCOUNTER → 2025-03-08 09:46 | Outpatient (BNV) | payer OTHER, SELFPAY | PROVIDERS: Emergency Provider Emergency Medicine; PCP Internal Medicine; Visit Provider Radiology Diagnostic Radiology | DX: M25.421 Effusion, right elbow (principal) | CPT/HCPCS: 73070 ==

== ENCOUNTER 2025-03-08 09:48 | Emergency (ER) | payer OTHER, SELFPAY ==
--- NOTE | ~2025-03-08 | XR_ITS ---
EXAMINATION: XR ELBOW 1-2 VIEWS RIGHT HISTORY: PAIN AND SWELLING COMPARISON: There are no prior studies available for comparison. FINDINGS: Three views of the left elbow are submitted. Osseous mineralization is normal. There is no fracture or dislocation. There is severe osteoarthritis with joint space narrowing and osteophyte formation. There is a joint effusion with elevation of the anterior and posterior fat pads. XR/XR elbow RT 2V IMPRESSION: Right elbow joint effusion. Severe osteoarthritis. Electronically signed by: Titi Mcadams MD 03/08/2025 11:12 AM EDT
[2025-03-08 10:08] VITALS: BP 203/83; PULSE 66; RESP 22; TEMP 36.6; O2SAT 97; BMI 31.1
--- NOTE | 2025-03-08 10:16 | ECG_ITS ---
Test Reason : dizziness Blood Pressure : */* mmHG Vent. Rate : 64 BPM Atrial Rate : 64 BPM P-R Int : 142 ms QRS Dur : 144 ms QT Int : 454 ms P-R-T Axes : 5 -16 129 degrees QTcB Int : 468 ms Normal sinus rhythm Left bundle branch block Abnormal ECG When compared with ECG of 30-Dec-2024 17:02, No significant change was found Referred By: Generic ED Physician Electronically Signed By: Maximino Hernandez
--- NOTE | 2025-03-08 10:46 | MHC.EDTECH ---
Not able to perform her ekg in the recliner but was able to do it in the wheelchair. Patient looks very uncomfortable
[2025-03-08 10:48] LABS: MANUAL DIFF FLAG NO
[2025-03-08 10:52] LABS: Hematocrit 36.8 % (37.0-47.0); Hemoglobin 11.7 g/dl (12.0-16.0); Imm Gran Abs Auto 0.08 X10*3/uL (0.00-0.03); Imm Gran Pct Auto 0.4 % (0.0-0.4); Lymphocytes Absolute Auto 3.0 X10*3/uL (1.2-4.9); Mean Corpuscular HGB Conc 31.8 g/dl (31.0-35.0); Mean Corpuscular Hemoglobin 29.6 pg (27.0-33.0); Mean Corpuscular Volume 93.2 fL (80.0-98.0); NRBC Abs Auto 0.000 X10*3/uL (0.0-0.012); NRBC Pct Auto 0.0 /100WBC (0.0-0.2); Platelet Count 237 X10*3/uL (160-400); Red Blood Count 3.95 X10*6/uL (4.20-5.50); White Blood Count 18.8 X10*3/uL (4.8-10.8)
[2025-03-08 11:07] LABS: Alanine Aminotransferase 6 U/L (0-31); Albumin Level 3.8 g/dL (3.5-5.0); Alkaline Phosphatase 69 U/L (39-117); Anion Gap 10 (12-20); Aspartate Amino Transferase 24 U/L (5-31); Blood Urea Nitrogen 26 mg/dL (9-16); Calcium 9.6 mg/dL (8.4-10.2); Carbon Dioxide 27 mmol/L (22-29); Chloride 109 mmol/L (96-108); Creatinine Clr Calc Pharmacy 29.9; Estimated Glomerular Filt Rate 42; Potassium 4.1 mmol/L (3.3-5.1); Sodium 142 mmol/L (135-145); Total Protein 6.3 g/dL (6.5-8.0)
--- OUTSIDE RECORDS SUMMARY | 2025-03-08 11:13 | XMS_ITS | Encounter Summary ---
Author Organization [facility] Address [address] [place] [address] Care Team Providers Care Air Tester Name Role Phone Teofilo Moreno MD Primary Care Provider [phone] Reason for Visit * Reason Comments home health cert Start of Care Date: 07/03/24Date of certification period: 07/03/24-08/31/24Date of service = signature date 07/14/24ospice patient: [facility] Agency: [facility] Encounter Details Date Type Department Care Team (Late st Contact Info) Description 07/30/2024 Billing Patient Not Present Adult Medicine [address] [phone] Teofilo Moreno MD [address] [place] [id number] COPD with acute exacerbation (CMS/HCC V24, CMS/HCC V28) (Primary Dx); Acute respiratory failure with hypoxia (CMS/HCC V24, CMS/HCC V28); Other disorders of lung; Acquired hemolytic anemia, unspecified (CMS/HCC V24, CMS/HCC V28); 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 (CMS/HCC V24, CMS/HCC V28); Essential (primary) hypertension; Diastolic congestive heart failure, unspecified HF chronicity (CMS/HCC V24, CMS/HCC V28); Heart failure, unspecified HF chronicity, unspecified heart failure type (CMS/HCC V24, CMS/HCC V28); Mild persistent asthma without complication; Stage 3 chronic kidney disease, unspecified whether stage 3a or 3b CKD ([facility] V24, [facility] V28); Hyperkalemia; Gastroesophageal reflux disease without esophagitis; [facility]CI (current) use of insulin ([facility] V24, [facility] V28); Other specified rheumatoid arthritis, multiple sites ([facility] V24, [facility] V28); Other emphysema ([facility] V24, [facility] V28); Hypomagnesemia; Hyperlipidemia, unspecified hyperlipidemia type; Pulmonary hypertension, unspecified ([facility] V24, [facility] V28); FCI (current) use of aspirin Social History Tobacco Use Types Packs/Day Years Used Date Smoking Tobacco: Former Smokeless Tobacco: Never Alcohol Use Standard Drinks/Week Comments Not Currently 0 (1 standard drink = 0.6 oz pur e alcohol) Comments Unknown Sex and Gender Information Value Date Recorded Sex Assigned at Not on file Legal Sex Female 6:14 AM EST Gender Identity Not on file Sexual Orientation Not on file documented as of this encounter Plan of Treatment Upcoming Encounters Date Type Department Care Team (Late st Contact Info) Description 05/21/2025 1:10 PM EDT Office Visit [facility] [address] [facility] [address] [place] [id number] Joel Castano NP [address] [place] [address] 06/08/2025 2:15 PM EST Office Visit [facility] - [facility] [place] [address] [place] [address] Bharath Gonsalez MD [address] [facility] [address] [place] [address] 07/27/2025 2:15 PM EST Office Visit Endocrinology - [place] [address] [place] [phone] Gladys Sow PA [address] [place] [address] 08/17/2025 2:30 PM EST Office Visit Adult Medicine [facility] [address] [place], [place] [phone] Frantz Martinez PA [address] [place], [place] documented as of this encounter Visit Diagnoses Diagnosis COPD with acute exacerbation ([facility] V24, [facility] V28)- Primary Acute respiratory failure with hypoxia ([facility] V24, [facility] V28) Other disorders of lung Acquired hemolytic anemia, unspecified ([facility] V24, [facility] V28) Acquired hemolytic anemia, unspecified 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 ([facility] V24, [facility] V28) Essential (primary) hypertension Unspecified essential hypertension Diastolic congestive heart failure, unspecified HF chronicity ([facility] V24, [facility] V28) Heart failure, unspecified HF chronicity, unspecified heart failure type ([facility] V24, [facility] V28) Mild persistent asthma without complication Stage 3 chronic kidney disease, unspecified whether stage 3a or 3b CKD ([facility] V24, [facility] V28) Hyperkalemia Hyperpotassemia Gastroesophageal reflux disease without esophagitis Esophageal reflux FCI (current) use of insulin ([facility] V24, [facility] V28) Other specified rheumatoid arthritis, multiple sites ([facility] V24, [facility] V28) Other emphysema ([facility] V24, [facility] V28) Other emphysema Hypomagnesemia Disorders of magnesium metabolism Hyperlipidemia, unspecified hyperlipidemia type Pulmonary hypertension, unspecified ([facility] V24, [facility] V28) FCI (current) use of aspirin documented in this encounter Care Teams Air Tester Relationship Specialty Start Date End Date Teofilo Moreno MD [address] [place] [address] PCP - General Internal Medicine 07/01/24 documented as of this encounter
--- OUTSIDE RECORDS SUMMARY | 2025-03-08 11:13 | XMS_ITS | Patient Health Record ---
Author Organization [facility] Address [address] [place] [address] Care Team Providers Care Account Developer Name Role Phone Warren Gallardo Primary Care Provider Titi Romero Unavailable [phone] Rochelle Garcia Unavailable Unavailable Allergies Allergen (clinical [...] times a day Active Vitamin D (Ergocalciferol) 33496 UNIT 1 capsule Orally Active Methotrexate 1 tab Oral Active predniSONE 5 MG 1 tablet with food o r milk Orally Once a day Active Diovan 320 MG 1 tablet Orally Once a day Active Actos 15 MG 1 tablet Orally Once a day Active Problems Problem Type SNOMED Code ICD Code Onset Dates Problem Status W/U Status Risk Notes Problem Gastroesophageal reflux disease (023326939) GERD (gastroesophag eal reflux disease) (530.81) Active confirmed Problem Anemia, iron deficiency (280.9) Active confirmed Plan Of Treatment Future Test Test Name Order Date UPPER GI ENDOSCOPY 12/01/2013 COLONOSCOPY 12/01/2013 Insurance Providers Payer Name Payer Address Payer Phone Subscriber Number Group Number Insured Name Patient Relationship to Insured Coverage Start Date Coverage End Date [facility] [facility] [address] [place] [phone] [id number] ESTRELLA WELLINGTON Self - patient is the insured Medical (General) History Medical History History ICD Code NIDDM asthma Rheumatoid arthritis Denies [place],CVA,renal disease Neg. screening colonoscopy with Dr. Hua in 2007 HTN GERD Arthritis Iron deficiency anemia-sees Dr. Garcia--12/2013 she had a neg. colonnoscopy and EGD--duodenal bx neg for celiac disease, small HH Surgical History Surgery Date(Month/Year) CCY BTL
--- OUTSIDE RECORDS SUMMARY | 2025-03-08 11:13 | XMS_ITS | Clinical Summary ---
Author Organization [facility] Address [address] [place] [address] Care Team Providers Care Cane Flume Chute Operator Name Role Phone Unavailable Primary Care Provider [...] Plan of Treatment Not on file Insurance [place]
[2025-03-08 12:10] VITALS: BP 127/56; PULSE 75; RESP 12; TEMP 36.8; O2SAT 94
--- NOTE | 2025-03-08 12:12 | ED.EXTPRO ---
HPI - Extremity Problem General Chief complaint: Extremity Injury, Upper Stated complaint: R arm pain, vomiting, arthritis Time Seen by Provider: 03/08/25 11:12 Source: patient Mode of arrival: ambulatory Limitations: no limitations History of Present Illness HPI Narrative: This is 84 years old female presented to the emergency department with the acute onset of right elbow pain since this morning. She has multiple medical problems which include COPD/hypertension/she has a rheumatoid arthritis she is on prednisone chronically. MD Complaint: extremity pain Onset (ago): hour(s) (8) Pain Consistency: constant Location: right and elbow Severity scale (1-10): 6 Quality: burning Radiation: none Relieving factors: nothing Exacerbating factors: nothing Related Data Home Medications ?Medication ?Instructions ?Recorded ?Confirmed aspirin 81 mg tablet,delayed 81 mg PO DAILY 06/15/20 02/10/25 release blood sugar diagnostic #10 ea 06/15/20 02/10/25 inhalat.spacing dev,large mask #1 ea 06/15/20 02/10/25 lancets 30 gauge #100 ea 06/15/20 02/10/25 magnesium oxide 400 mg (241.3 mg 400 mg PO BID 06/15/20 02/10/25 magnesium) tablet omeprazole 20 mg capsule,delayed 20 mg PO DAILY@0630 06/15/20 02/10/25 release blood sugar diagnostic (FreeStyle 02/08/23 02/10/25 Lite Strips) insulin glargine 100 unit/mL 16 unit subcut DAILY@0900 02/08/23 02/10/25 subcutaneous solution (Lantus U-100 Insulin) docusate sodium 100 mg capsule 100 mg PO DAILY 06/06/24 02/10/25 hydralazine 10 mg tablet 10 mg PO TID 06/06/24 02/10/25 insulin aspart U-100 100 unit/mL See Protocol subcut TIDWM 06/06/24 02/10/25 (3 mL) subcutaneous pen (Novolog FlexPen U-100 Insulin aspart) losartan 25 mg tablet 25 mg PO DAILY 06/06/24 02/10/25 pravastatin 20 mg tablet 20 mg PO BEDTIME 06/06/24 02/10/25 verapamil 240 mg tablet,extended 240 mg PO BEDTIME 06/06/24 02/10/25 release prednisone 2.5 mg tablet 5 mg PO DAILY 08/11/24 02/10/25 empagliflozin 10 mg tablet 10 mg PO DAILY 02/08/25 02/10/25 (Jardiance) Previous Rx's ?Medication ?Instructions ?Recorded furosemide 20 mg tablet 20 mg PO DAILY #30 tabs 06/15/24 albuterol sulfate 2.5 mg/3 mL 2.5 mg (3 mL) inhalation Q4-6H PRN 01/27/25 (0.083 %) solution for nebulization for wheezing #75 mL albuterol sulfate 90 mcg/actuation 2 puff PO Q8H PRN shortness of 01/27/25 aerosol inhaler (Ventolin HFA) breath or wheezing #18 ea ferrous sulfate 324 mg (65 mg 324 mg PO BIDWM #60 tabs 02/05/25 iron) tablet,delayed release polyethylene glycol 3350 17 17 g PO DAILY PRN Constipation 02/08/25 gram/dose oral powder (Miralax) #238 grams colchicine 0.6 mg tablet 0.6 mg PO DAILY #7 tabs 03/08/25 Allergies Allergy/AdvReac Type Severity Reaction Status Date / Time latex (LATEX) Allergy Unknown RASH Verified 03/08/25 10:10 pineapple (PINEAPPLE) Allergy Unknown HIVES Verified 03/08/25 10:10 enalaprilat (From Vasotec) AdvReac Mild Unknown Verified 03/08/25 10:10 Review of Systems Constitutional: Constitutional: Reports no additional constitutional complaints Cardiovascular: Cardiovascular: Reports no additional cardiovascular complaints Musculoskeletal: Comments: Right elbow is tender decreased range of motion PMFSH Past Medical History Attestation statement: The following information was validated with the patient. Source: unable to obtain Medical History Asthma with COPD Anemia Hypoxia Rheumatoid arthritis Cough COPD (chronic obstructive pulmonary disease) Bacteremia due to Streptococcus pneumoniae Benign paroxysmal positional vertigo Arthritis Restrictive lung disease Surgical History Hx of cholecystectomy Family History Family History Mother Diabetes Maternal Grandmother Diabetes Social History Social History Household Members: Children Housing: Apartment Are you a primary home care associate to a significant other at home: No Do you presently have visiting nurse or other home services: Yes Unable to assess alcohol history related to: Unknown Alcohol intake: former Patient Tobacco Use Status: Never used Tobacco Cigarette Packs Per Day: 1 Advance Directives: Yes Advance Directives on File: Yes Advance Directives Date on File: 06/16/24 service: No Current occupational status: unemployed Physical Exam Exam: Exam: Mild distress Vital Signs: Vital Signs: Last Vital Signs Temp 98.6 F 03/08/25 14:30 Pulse 64 03/08/25 14:30 Resp 12 03/08/25 14:30 BP 126/30 L 03/08/25 14:30 Pulse Ox 95 03/08/25 14:30 O2 Del Method Nasal Cannula 03/08/25 14:30 O2 Flow Rate 2 03/08/25 14:30 BMI result Body Mass Index 31.1 Const: General: cooperative Nutritional Appearance: average body habitus HEENT: Head: Yes normal to inspection Mouth: Normal oral and palatal mucosa present Neck: Neck: Yes normal visual inspection Chest: Chest palpation & inspection: normal inspection of the chest Resp: Effort & Inspection: normal respiratory effort Cardio: Jugular venous distension: no JVD Rate: regular rate Rhythm: regular rhythm GI: Inspection: Yes normal to inspection Palpation (GI): Soft to palpation Extrem: Other: Examination of the right elbow decreased range of motion tenderness and swelling noted Course Reevaluation(s) Reevaluation #1: Arthrocentesis of the right elbow performed I obtained about 10 mL fluid see picture Reevaluation #2: On re-examination she feels much better she is comfortable to go home anticipate discharge Time: 14:41 Medications Administered Discontinued Medications Generic Name Dose Route Start Last Admin Trade Name Kathia PRN Reason Stop Dose Admin Acetaminophen 1,000 mg in 100 mls @ 400 mls/hr 03/08/25 11:58 03/08/25 12:37 Ofirmev IV 03/08/25 12:12 Infused ONCE ONE Infusion Ketorolac Tromethamine 15 mg 03/08/25 11:57 03/08/25 12:22 Ketorolac Tromethamine 15 Mg/Ml Vial IVPUSH 03/08/25 11:58 15 mg ONCE ONE Administration Lidocaine HCl 5 ml 03/08/25 12:16 03/08/25 12:22 Lidocaine Hcl 1 % Mpf 5 Ml Vial INFILTRATI 03/08/25 12:17 5 ml ONCE ONE Administration Losartan Potassium 50 mg 03/08/25 12:01 03/08/25 12:36 Losartan Potassium 50 Mg Tablet PO 03/08/25 12:02 50 mg ONCE ONE Administration Protocol Morphine Sulfate 2 mg 03/08/25 12:24 03/08/25 12:29 Morphine Sulfate 2 Mg/Ml Cartridge IVPUSH 03/08/25 12:25 2 mg ONCE ONE Administration Protocol Ondansetron HCl 4 mg 03/08/25 11:57 03/08/25 12:22 Ondansetron Hcl 4 Mg/2 Ml Vial IVPUSH 03/08/25 11:58 4 mg ONCE ONE Administration Medical Decision Making Medical Decision Making [facility] Narrative: This is an elderly 84 years old with multiple comorbidity in with the acute onset atraumatic right elbow pain. She does have history of rheumatoid arthritis she is on prednisone chronically I may consider arthrocentesis for diagnosis 13:57 the joint was stopped result of the fluid consistent with pseudogout she has Crystals, at this time she is feeling much better. We will avoid nonsteroidal because she has a chronic renal insufficiency we could use colchicine dose daily 0.6 (renal dose) she is already on prednisone. Differential Diagnosis Differential Diagnoses: The differential diagnosis associated with the presentation includes Elbow sprain/cellulitis/arthitis/septic arthritis Admission/Observation Consideration of admission/observation: Escalation of care including admission/observation considered Lab Data [facility] Lab Attestation statement: I reviewed the patient's lab results. 03/08/25 10:37 03/08/25 10:37 Labs: Lab Results 03/08/25 03/08/25 Range/Units 10:37 12:35 WBC 18.8 H (4.8-10.8) X10*3/uL RBC 3.95 L (4.20-5.50) X10*6/uL Hgb 11.7 L (12.0-16.0) g/dl Hct 36.8 L (37.0-47.0) % MCV 93.2 (80.0-98.0) fL MCH 29.6 (27.0-33.0) pg MCHC 31.8 (31.0-35.0) g/dl RDW 13.3 (11.0-16.0) % Plt Count 237 (160-400) X10*3/uL MPV 10.3 (9.4-12.3) fL Immature Gran % (Auto) 0.4 (0.0-0.4) % Neut % (Auto) 74.7 H (45-73) % Lymph % (Auto) 16.2 L (20-40) % [place] % (Auto) 6.1 (2-11) % Eos % (Auto) 2.1 (0-4) % Baso % (Auto) 0.5 (0-2) % Lymph # (Auto) 3.0 (1.2-4.9) X10*3/uL [place] # (Auto) 1.2 (0.1-1.2) X10*3/uL Eos # (Auto) 0.4 (0.0-0.4) X10*3/uL Baso # (Auto) 0.1 (0.0-0.2) X10*3/uL Abs Immat Gran (auto) 0.08 H (0.00-0.03) X10*3/uL Absolute Neuts (auto) 14.0 H (2.0-8.3) x10*3/uL Absolute Nucleated RBC 0.000 (0.0-0.012) X10*3/uL Nucleated RBC % (auto) 0.0 (0.0-0.2) /100WBC Sodium 142 (135-145) mmol/L Potassium 4.1 (3.3-5.1) mmol/L Chloride 109 H (96-108) mmol/L Carbon Dioxide 27 (22-29) mmol/L Anion Gap 10 L (12-20) BUN 26 H (9-16) mg/dL Creatinine 1.21 (0.5-1.4) mg/dL Estim Creat Clear Calc 29.9 Estimated GFR 42 Random Glucose 149 H (60-115) mg/dL Calcium 9.6 (8.4-10.2) mg/dL Total Bilirubin 0.8 (0.0-1.0) mg/dL AST 24 (5-31) U/L ALT 6 (0-31) U/L Alkaline Phosphatase 69 (39-117) U/L Total Protein 6.3 L (6.5-8.0) g/dL Albumin 3.8 (3.5-5.0) g/dL Synovial Source elbow Synovial WBC 133.760 X10*3/uL Synovial RBC 0.026 X10*6/uL Synovial Neutrophils 84 % Synovial Lymphocytes 10 % Synovial Monocytes 4 % Synovial Other Cells 2 Independent Interpretation I performed an independent interpretation of an: Plain X-Ray Interpretation: I personally reviewed interpreted the x-ray of the elbow as no fracture joint effusion Radiology Impression Discussion of test interpretation with radiology: I have reviewed the radiologist's reading. Radiologist Impression: are no prior studies available for comparison. FINDINGS: Three views of the left elbow are submitted. Osseous mineralization is normal. There is no fracture or dislocation. There is severe osteoarthritis with joint space narrowing and osteophyte formation. There is a joint effusion with elevation of the anterior and posterior fat pads. XR/XR elbow RT 2V IMPRESSION: Right elbow joint effusion. Severe osteoarthritis. Electronically signed by: Titi Mcadams MD 03/08/2025 11:12 AM EDT Dictated By: Titi Mcadams MD Signed By: <Electronically signed by Titi Mcadams MD in OV> 03/08/25 1112 DD/ 0946 Procedures Joint Aspiration/Injection Joint Asp./Inject. 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 the joint fluid is consistent with pseudogout Prescriptions: New colchicine 0.6 mg tablet 0.6 mg PO DAILY Qty: 7 0RF No Action albuterol sulfate [Ventolin HFA] 90 mcg/actuation HFA aerosol inhaler 2 puff PO Q8H PRN (Reason: shortness of breath or wheezing) Qty: 18 3RF albuterol sulfate 2.5 mg /3 mL (0.083 %) solution for nebulization 2.5 mg inhalation Q4-6H PRN (Reason: for wheezing) Qty: 75 3RF insulin glargine [Lantus U-100 Insulin] 100 unit/mL Solution 16 unit SUBCUT DAILY@0900 (DME) FreeStyle Lite Strips Strip MISCELLANEOUS TID ferrous sulfate 324 mg (65 mg iron) Tablet,Delayed Release (Dr/Ec) 324 mg PO BIDWM Qty: 60 1RF Jardiance 10 mg Tablet 10 mg PO DAILY polyethylene glycol 3350 [Miralax] 17 gram/dose Powder 17 g PO DAILY PRN (Reason: Constipation ) Qty: 238 1RF losartan 25 mg tablet 25 mg PO DAILY hydralazine 10 mg tablet 10 mg PO TID docusate sodium 100 mg capsule 100 mg PO DAILY verapamil 240 mg tablet extended release 240 mg PO BEDTIME pravastatin 20 mg tablet 20 mg PO BEDTIME insulin aspart U-100 [Novolog FlexPen U-100 Insulin] 100 unit/mL (3 mL) insulin pen See Protocol subcut TIDWM Protocol: Insulin Correction Scale Less than or equal to 110 ---- Give (units): 0 111 to 150 Give (units): 0 151 to 200 Give (units): 2 201 to 250 Give (units): 4 251 to 300 Give (units): 6 301 to 350 Give (units): 8 Greater than 350 Give (units): 10 Call MD if Blood Glucose > : 350 furosemide 20 mg Tablet 20 mg PO DAILY Qty: 30 0RF Protocol: Hold for SBP< HOLD for SBP < : 90 prednisone 2.5 mg tablet 5 mg PO DAILY Rx Instructions: 7.5 mg for April, 5 mg for May, and 2.5 mg for June/ finished per patient and daughter 08/11/24 PT'S DAUGHTER STATED 5MG DAILY (DME) lancets 30 gauge misc See Rx Instructions .ROUTE .MEDSUPPLY Qty: 100 Rx Instructions: As directed magnesium oxide 400 mg (241.3 mg magnesium) tablet 400 mg PO BID aspirin 81 mg tablet,delayed release (DR/EC) 81 mg PO DAILY (DME) inhalat.spacing dev,large mask Spacer See Rx Instructions .ROUTE .MEDSUPPLY Qty: 1 Rx Instructions: As directed (DME) blood sugar diagnostic Strip See Rx Instructions Not Applicable .MEDSUPPLY Qty: 10 Rx Instructions: As directed omeprazole 20 mg capsule,delayed release(DR/EC) 20 mg PO DAILY@0630 Print Language: Khmer
[2025-03-08] MEDS: Lidocaine HCl 1 % MPF 5 ML VIAL INFILTRATI (12:22)
--- NOTE | 2025-03-08 12:55 | PC.NURSE ---
provider at bedside, able to aspirate 9mL of fluid from right elbow. called lab to determine the correct tubes to use.
[2025-03-08 13:02] LABS: Source Synovial Fluid elbow
[2025-03-08 13:18] LABS: MN% 15.5 %; PMN% 84.5 %; RBC Synovial Fluid 0.026 X10*6/uL
[2025-03-08 13:44] LABS: BF Shift QC OK YES; Man Diluent Bkgrd OK YES
[2025-03-08 14:11] LABS: Lymphocytes Synovial Fluid 10 %; Monocytes Synovial Fluid 4 %; Neutrophils Synovial Fluid 84 %
[2025-03-08 14:12] LABS: Other Cells Synovial Fluid 2
[2025-03-08 14:30] VITALS: BP 126/30; PULSE 64; RESP 12; TEMP 37; O2SAT 95
--- NOTE | 2025-03-08 14:41 | PC.NURSE ---
patient appearing more comfortable at this time, oxygen found to be 80's on room air s/p morphine administration while sleeping. placed on 2L nasal cannula
[2025-03-08 17:45] VITALS: O2SAT 94
[2025-03-08 18:11] VITALS: BP 134/68; PULSE 60; RESP 16; O2SAT 94
[2025-03-08 18:12] VITALS: BP 134/68; PULSE 60; RESP 16; TEMP 36.1; O2SAT 94
== END 2025-03-08 18:12 | disposition home or self-care (01) ==
PROVIDERS: Emergency Provider Emergency Medicine; PCP Internal Medicine
DX: M10.021 Idiopathic gout, right elbow (principal); M25.521 Pain in right elbow; M06.80 Other specified rheumatoid arthritis, unspecified site; R11.10 Vomiting, unspecified; I10 Essential (primary) hypertension; J44.9 Chronic obstructive pulmonary disease, unspecified; Z79.899 Other long term (current) drug therapy
CPT/HCPCS: 20605; 36415; 73070; 80053; 84560; 85025; 87070; 87073; 87205; 89051; 89060; 93005; 96374; 96375; 99284; J0131; J1885; J2003; J2270; J2405

== ENCOUNTER → 2025-03-08 10:16 | Outpatient (BNV) | payer OTHER, SELFPAY | PROVIDERS: Emergency Provider Emergency Medicine; PCP Internal Medicine; Visit Provider Internal Medicine Cardiovascular Disease | DX: I44.7 Left bundle-branch block, unspecified (principal) | CPT/HCPCS: 93010 ==

== ENCOUNTER 2025-06-07 10:54 | Emergency (ER) | payer OTHER, SELFPAY ==
--- OUTSIDE RECORDS SUMMARY | 2025-06-03 13:35 | XMS_ITS | Encounter Summary ---
Author Organization [facility] Address [address] [place] [address] Care Team Providers Care Manager Multicultural Name Role Phone Teofilo Moreno MD Primary Care Provider [phone] Encounter Details Date Type Department Care Team (Late Contact Info) Description 06/03/2025 1:35 PM EST Lab Draw Station [address] [phone] Secondary hypertension; Heart failure with mildly reduced ejection fraction (CMS/HCC V24, CMS/HCC V28); Type 2 diabetes mellitus with diabetic microalbuminuria, unspecified whether termite exterminator insulin use (CMS/HCC V24, CMS/HCC V28); Hypomagnesemia Social History Tobacco Use Types Packs/Day Years Used Date Smoking Tobacco: Former Smokeless Tobacco: Never Alcohol Use Standard Drinks/Week Comments Not Currently 0 (1 standard drink = 0.6 oz pur e alcohol) Comments No Sex and Gender Information Value Date Recorded Sex Assigned at Not on file Legal Sex Female 6:14 AM EST Gender Identity Not on file Sexual Orientation Not on file documented as of this encounter Plan of Treatment Upcoming Encounters Date Type Department Care Team (Late Contact Info) Description 06/08/2025 2:15 PM EST Office Visit [facility]phrology - [address] [place] [phone] Bharath Gonsalez MD [address] [place] [phone] 07/27/2025 2:15 PM EST Office Visit Endocrinology [address] [phone] Gladys Sow PA [address] [place] [address] 08/17/2025 2:30 PM EST Office Visit Adult Medicine [address] [phone] Frantz Martinez PA [address] [place], [place] documented as of this encounter Procedures Procedure Name Priority Date/Time Associated Diagnosis Comments PROTEIN AND CREATININE WITH RATIO, URINE Routine 06/03/2025 1:42 PM EST Secondary hypertension Heart failure with mildly reduced ejection fraction (CMS/HCC V24, CMS/HCC V28) Type 2 diabetes mellitus with diabetic microalbuminuria, unspecified whether termite exterminator insulin use (CMS/HCC V24, CMS/HCC V28) Hypomagnesemia CREATININE, SERUM Routine 06/03/2025 1:4 2 PM EST Secondary hypertension Heart failure with mildly reduced ejection fraction (CMS/HCC V24, CMS/HCC V28) Type 2 diabetes mellitus with diabetic microalbuminuria, unspecified whether shelter insulin use (CMS/HCC V24, CMS/HCC V28) Hypomagnesemia BUN Routine 06/03/2025 1:42 PM EST Secondary hypertension Heart failure with mildly reduced ejection fraction (CMS/HCC V24, CMS/HCC V28) Type 2 diabetes mellitus with diabetic microalbuminuria, unspecified whether termite exterminator insulin use (CMS/HCC V24, CMS/HCC V28) Hypomagnesemia ELECTROLYTE PANEL Routine 06/03/2025 1:4 2 PM EST Secondary hypertension Heart failure with mildly reduced ejection fraction (CMS/HCC V24, CMS/HCC V28) Type 2 diabetes mellitus with diabetic microalbuminuria, unspecified whether shelter insulin use (CMS/HCC V24, CMS/HCC V28) Hypomagnesemia documented in this encounter Results * (ABNORMAL) Creatinine (06/03/2025 1:42 PM EST) Creatinine 1.49(H) 0.50 - 1.10 mg/dL LAB CHEMISTRY METHOD 06/03/2025 4:48 PM EST [facility] eGFR 35(L) >=60 mL/min/1. 73m2 LAB CHEMISTRY METHOD 06/03/2025 4:48 PM EST [facility] Comment:Calculation based on the Chronic Kidney Disease Epidemiology Collaboration (CKD-EPI) equation refit without adjustment for race. Blood Venous blood specimen / Unknown Venipuncture / Unknown 06/03/2025 1:42 PM EST 06/03/2025 1:42 PM EST us Bharath Gonsalez MD LAB BLOOD ORDERABLES Final Resu lt Performing Organization Address City/[facility]/ZIP Co de Phone Number [facility] [address] [place] [address], [place] [phone] * (ABNORMAL) BUN (06/03/2025 1:42 PM EST) Pathologist [facility] BUN 32(H) 5 - 25 mg/dL LAB CHEMISTRY METHOD 06/03/2025 4:48 PM EST [facility] Blood Venous blood specimen / Unknown Venipuncture / Unknown 06/03/2025 1:42 PM EST 06/03/2025 1:42 PM EST us Bharath Gonsalez MD LAB BLOOD ORDERABLES Final Resu lt [facility] [address] [place] [address], [place] [phone] * Electrolyte panel (06/03/2025 1:42 PM EST) Pathologist [facility] Sodium 138 133 - 145 mmol/L LAB CHEMISTRY METHOD 06/03/2025 4:48 PM EST [facility] Potassium 4.5 3.5 - 5.5 mmol/L LAB CHEMISTRY METHOD 06/03/2025 4:48 PM [facility] Chloride 105 96 - 110 mmol/L LAB CHEMISTRY METHOD 06/03/2025 4:48 PM [facility] CO2 30 21 - 32 mmol/L LAB CHEMISTRY METHOD 06/03/2025 4:48 PM [facility] Anion Gap 3 3 - 11 LAB CHEMISTRY METHOD 06/03/2025 4:48 PM [facility] Blood Venous blood specimen / Unknown Venipuncture / Unknown 06/03/2025 1:42 PM EST 06/03/2025 1:42 PM EST us Bharath Gonsalez MD LAB BLOOD ORDERABLES Final Resu lt Performing Organization Address City/[facility]/ZIP Co de Phone Number [facility] [address] [place] [address], [place] [phone] * (ABNORMAL) Protein and creatinine with ratio, urine (06/03/2025 1:42 PM EST) Protein, Urine 103 mg/dL LAB CHEMISTRY METHOD 06/03/2025 5:00 PM [facility] Prot/Creat, Ur 0.96(H) <=0.20 mg/mg creat LAB CHEMISTRY METHOD 06/03/2025 5:00 PM [facility] Creatinine, Urine 107.0 mg/dL LAB CHEMISTRY METHOD 06/03/2025 5:00 PM [facility] Urine Urine specimen obtained by clean catch procedure / Unknown Non-blood Collection / Unknown 06/03/2025 1:42 PM EST 06/03/2025 1:42 PM EST us Bharath Gonsalez MD LAB URINE ORDERABLES Final Resu lt Performing Organization Address City/[facility]/ZIP Co de Phone Number [facility] [address] [place] [address], documented in this encounter Visit Diagnoses Diagnosis Secondary hypertension Other secondary hypertension, unspecified Heart failure with mildly reduced ejection fraction ([facility] V24, [facility] V28) Type 2 diabetes mellitus with diabetic microalbuminuria, unspecified whether shelter insulin use ([facility] V24, [facility] V28) Hypomagnesemia Disorders of magnesium metabolism documented in this encounter Care Teams Manager Multicultural Relationship Specialty Start Date End Date Teofilo Moreno MD [address] [place] [phone] PCP - General Internal Medicine 07/01/24 documented as of this encounter
--- NOTE | ~2025-06-07 | CT_ITS ---
EXAMINATION: CT ABDOMEN AND PELVIS WITH CONTRAST CLINICAL INFORMATION: Fall, right flank pain COMPARISON: None available. TECHNIQUE: Multidetector volumetric images were obtained from the superior aspect of the liver through the pubic symphysis following administration 85 mL of Omnipaque 350 intravenous contrast. Sagittal and coronal reformatted images were obtained on the technologist's workstation. Oral contrast: No This CT examination was performed using dose optimization techniques as appropriate, variously including the following: *Automated exposure control *Adjustment of mA and/or kV according to patient size (this includes techniques or standardized protocols for targeted exams where dose is matched to indication/reason for exam; i.e. extremities or head) *Use of iterative reconstruction technique FINDINGS: LUNG BASES: Bibasilar subpleural opacities, could reflect atelectasis. No dense consolidation. No effusion. No pneumothorax is seen. LIVER, GALLBLADDER, AND BILIARY TREE: No suspicious renal lesions. Mild intrahepatic biliary duct dilatation could compensatory, secondary to the previous cholecystectomy. Status postcholecystectomy. CBD measures 1 cm, could be compensatory from the prior cholecystectomy. PANCREAS: Unremarkable. SPLEEN: Unremarkable. ADRENAL GLANDS: Unremarkable. KIDNEYS AND URETERS: Symmetric enhancement. No suspicious renal lesions. No evidence of obstructive uropathy. BLADDER: Unremarkable. GASTROINTESTINAL TRACT: Nonobstructive bowel gas pattern. Stomach is partially distended. Scattered colonic diverticuli without evidence of diverticulosis. Appendix not identified. Peritoneum: No ascites. No fluid collections. No mesenteric inflammatory changes. No pneumoperitoneum. ABDOMINAL WALL: Small fat-containing umbilical hernia. LYMPH NODES: No pathologically enlarged lymph nodes. VASCULAR: Extensive vascular calcification. No aneurysmal dilatation of the aorta. Hepatic veins, portal veins are enhancing. PELVIC VISCERA: Within normal limits OSSEOUS STRUCTURES: Multilevel advanced lumbar spondylosis. No acute vertebral body compression. Dysmorphic appearance of the left 11th, 10th, ninth rib could reflect remote fractures.. In the partially imaged right lower ribs, no acute displaced fractures identified. CT/CT abdomen pelvis w IV con IMPRESSION: * Bibasilar atelectasis. * Status postcholecystectomy. Enlarged CBD, mild intrahepatic biliary duct dilatation could be compensatory. Correlate with liver function tests. * No acute intra-abdominal findings otherwise identified. * Dysmorphic appearance of the left ninth, 10th and 11th, could reflect remote fracture. Clinically correlate. Fleischner guidelines were followed. Electronically signed by: Kenney Michaels MD 06/07/2025 01:45 PM [facility]
--- NOTE | ~2025-06-07 | XR_ITS ---
EXAMINATION: XR HAND, LEFT CLINICAL INFORMATION: Fall COMPARISON: June 15, 2021 TECHNIQUE: PA, lateral, and oblique views of the left hand. FINDINGS: There is diffuse osteopenia. XR/XR hand LT min 3V IMPRESSION: Osteopenia. Electronically signed by: Bay Cabrera MD 06/07/2025 12:48 PM [facility]
--- NOTE | ~2025-06-07 | CT_ITS ---
EXAMINATION: CT CHEST WITH CONTRAST CLINICAL INFORMATION: Status post fall. Right flank pain. Nausea. Vomiting. COMPARISON: April 27, 2022. TECHNIQUE: Multidetector volumetric CT imaging of the chest was obtained after the administration of 85 mL of Omnipaque 350 intravenous contrast without immediate adverse reactions. Axial MIP volume rendering provided. Sagittal and coronal reformatted images were obtained. This CT examination was performed using dose optimization techniques as appropriate, variously including the following: *Automated exposure control *Adjustment of mA and/or kV according to patient size (this includes techniques or standardized protocols for targeted exams where dose is matched to indication/reason for exam; i.e. extremities or head) *Use of iterative reconstruction technique DLP: 301 mGy-cm FINDINGS: CLOUD INFRASTRUCTURE ARCHITECT: Patient's large body habitus. Heart size is enlarged. Multilevel spondylosis. LUNGS: There is a faint wall and air-filled cyst extending from the perihilar region to the mid lungs mostly to the upper lung lobes and to a lesser extent lower lung lobes. There is a 3 cm irregular shaped soft tissue attenuation in the left upper lung lobe. Pulmonary mosaic pattern. 6 mm pulmonary nodule, lingula. MEDIASTINUM: Mediastinal lymphadenopathy. Small volume pericardial effusion. Calcified plaques throughout the thoracic aorta its main branches and the coronary arteries. No gross aneurysm or dissection, thoracic aorta. There is normal IV contrast enhancement of the main pulmonary artery and its main branches. There is a 9 mm cystic lesion in the left thyroid lobe. Hiatal hernia, moderate size. Enlargement of the all 4 chambers of the heart. PLEURA: No pneumothorax. No hemothorax. No calcified pleural plaques. No gross pleural effusion. AXILLA: No lymphadenopathy. UPPER ABDOMEN: Hernia, moderate size. OSSEOUS STRUCTURES: No acute displaced rib fractures. Old healed rib fractures. Multilevel spondylosis throughout the axial skeleton. Osteopenia versus osteoporosis. No acute fracture or listhesis in the axial skeleton. Sternum is intact. CT/CT chest w IV con IMPRESSION: No intrathoracic traumatic injury or acute fracture. 3 cm irregular attenuation, left upper lung lobe concerning for malignancy. Thin-walled pulmonary cystic lesions, perihilar and upper lung lobes. Cardiomegaly. Small pericardial effusion. Coronary artery disease and atherosclerosis disease. Fleischner guidelines were followed. Electronically signed by: Vel Rooney MD 06/07/2025 01:36 PM EST
--- NOTE | ~2025-06-07 | CT_ITS ---
EXAMINATION: CT HEAD WITHOUT CONTRAST CLINICAL INFORMATION: Fall COMPARISON: December 30, 2024 TECHNIQUE: Contiguous axial imaging was performed from the skull base to vertex without intravenous administration of contrast. This CT examination was performed using dose optimization techniques as appropriate, variously including the following: *Automated exposure control *Adjustment of mA and/or kV according to patient size (this includes techniques or standardized protocols for targeted exams where dose is matched to indication/reason for exam; i.e. extremities or head) *Use of iterative reconstruction technique FINDINGS: There is no acute ischemic change. Chronic periventricular hypodensities are present. There is no intracranial hemorrhage. There is no mass-effect or midline shift. There is mild generalized atrophy. Basal cisterns and ventricles are within normal limits for age/cerebral volume. Orbits are symmetrical and unremarkable. Paranasal sinuses and mastoid air cells are pneumatized. There are no bony abnormalities. CT/CT head/brain wo IV con IMPRESSION: No acute intracranial abnormality. Stable chronic changes. Electronically signed by: Bay Cabrera MD 06/07/2025 01:23 PM [facility]
--- NOTE | ~2025-06-07 | CT_ITS ---
EXAMINATION: CT CERVICAL SPINE WITHOUT CONTRAST CLINICAL INFORMATION: Fall COMPARISON: 04/27/2022 TECHNIQUE: Axial imaging was performed from the base of the skull through T2 without IV contrast. Coronal and sagittal reformatted images were generated from the original axial data set. ALARA: The examination used one or more of the following radiation dose reduction techniques: Automated exposure control, iterative reconstruction, and/or adjustment of mA and/or KV. FINDINGS: No prevertebral soft tissue swelling is seen. 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 Moderate to severe degenerative changes are again identified C3-4 through 6 7. There is grade 1 retrolisthesis of C3-4. No fracture line is evident. Paraseptal and centrilobular emphysema is again identified in the lung apexes. CT/CT cervical spine wo IV con IMPRESSION: No acute fracture. Moderate to severe degenerative disease C3-4 through C6-7. Electronically signed by: Bay Cabrera MD 06/07/2025 01:30 PM [facility]
--- NOTE | ~2025-06-07 | XR_ITS ---
EXAMINATION: XR WRIST, LEFT CLINICAL INFORMATION: Fall COMPARISON: June 15 2021 TECHNIQUE: PA, lateral, oblique, and scaphoid views of the left wrist. FINDINGS: There is diffuse osteopenia. There is buckling of the distal radius through the region of the sigmoid notch that was faintly visible on the prior examination and appears more dense on the current study suggesting a healed fracture. There is vascular calcification. No abnormality is evident. XR/XR wrist LT min 3V IMPRESSION: Advanced osteopenia limits the study. There is medial buckling of the ulnar side of the distal radius that was faintly visible on the x-ray in 2020. Likely, this is a chronic healed fracture. Correlate for focal pain. Electronically signed by: Bay Cabrera MD 06/07/2025 12:54 PM [facility]
--- NOTE | 2025-06-07 10:56 | ED_ITS ---
HPI - General Adult General Chief complaint: Fall Stated complaint: FALL T-1,R LOWER BACK PAIN,BP 234/80 PER EMS Time Seen by Provider: 06/07/25 10:56 History of Present Illness ED Provider: Dr. Hobbs HPI narrative: 84 y/o F patient; PMH mixed asthma/COPD, HTN, T2DM, HFpEF, severe pulmonary HTN, chronic anemia previously requiring blood transfusion, rheumatoid arthritis on chronic prednisone; presents from home via EMS with report of mechanical fall yesterday now with right lower back pain. The patient states she fell [place] [employer] when she missed the first step and fell backwards. Today she started with NBNB nausea/vomiting. Patient otherwise denies: fever or chills, abdominal pain, SOB, cough/congestion. She does note + head strike without LOC. She denies headache or neck pain. She is on baby ASA daily. She also reports left wrist/hand pain. Related Data Home Medications ?Medication ?Instructions ?Recorded ?Confirmed aspirin 81 mg tablet,delayed 81 mg PO DAILY 06/15/20 1 08/01/24 release blood sugar diagnostic #10 ea 06/15/20 06/01/25 inhalat.spacing dev,large mask #1 ea 06/15/20 06/01/25 lancets 30 gauge #100 ea 06/15/20 06/01/25 magnesium oxide 400 mg (241.3 mg 400 mg PO BID 0 06/01/25 magnesium) tablet omeprazole 20 mg capsule,delayed 20 mg PO DAILY@0630 1 08/15/19 06/01/25 release blood sugar diagnostic (FreeStyle 02/08/23 06/01/25 Lite Strips) insulin glargine 100 unit/mL 12 unit subcut DAILY@0900 02/08/23 06/01/25 subcutaneous solution (Lantus U-100 Insulin) docusate sodium 100 mg capsule 100 mg PO DAILY 4 06/01/25 hydralazine 10 mg tablet 10 mg PO TID 06/06/24 insulin aspart U-100 100 unit/mL See Protocol subcut T IDWM 06/06/24 06/01/25 (3 mL) subcutaneous pen (Novolog FlexPen U-100 Insulin aspart) losartan 25 mg tablet 25 mg PO DAILY 06/06/2411/20 pravastatin 20 mg tablet 20 mg PO BEDTIME 06/06/24 verapamil 240 mg tablet,extended 240 mg PO BEDTIME 04/2106/01/25 release prednisone 2.5 mg tablet 10 mg PO DAILY 08/11/2411/20 empagliflozin 10 mg tablet 10 mg PO DAILY 02/08/2511/20 (Jardiance) Previous Rx's ?Medication ?Instructions ?Recorded furosemide 20 mg tablet 20 mg PO DAILY #30 tabs 05/29 03/21 albuterol sulfate 2.5 mg/3 mL 2.5 mg (3 mL) inhalation Q4-6H PRN 01/27/25 (0.083 %) solution for nebulization for wheezing #75 m L polyethylene glycol 3350 17 17 g PO DAILY PRN Constipa tion 02/08/25 gram/dose oral powder (Miralax) #238 grams albuterol sulfate 90 mcg/actuation 2 puff PO Q8H PRN s hortness of 05/03/25 aerosol inhaler (Ventolin HFA) breath or wheezing #18 ea cyanocobalamin (vitamin B-12) 500 500 mcg PO DAILY #90 ea 06/01/25 mcg lozenges ferrous sulfate 324 mg (65 mg 324 mg PO BIDWM #60 tabs 06/07/25 iron) tablet,delayed release Allergies Allergy/AdvReac Type Severity Reaction Status Date / Time latex (LATEX) Allergy Unknown RASH Verified 06/07/25 11:13 pineapple (PINEAPPLE) Allergy Unknown HIVES Verified 06/07/25 11:13 enalaprilat (From Vasotec) AdvReac Mild Unknown Verified 06/07/25 11:13 Review of Systems 2 Review of Systems: Yes all other systems are reviewed and are negative [facility] Past Medical History Attestation statement: The following information was validated with the patient. Source: old records reviewed Medical History Asthma with COPD Anemia Hypoxia Rheumatoid arthritis Cough COPD (chronic obstructive pulmonary disease) Bacteremia due to Streptococcus pneumoniae Benign paroxysmal positional vertigo Arthritis Restrictive lung disease Surgical History Hx of cholecystectomy Family History Family History Mother Diabetes Maternal Grandmother Diabetes Social History Social History Household Members: Children Housing: Apartment Are you a primary inpatient care manager rn to a significant other at home: No Do you presently have visiting nurse or other home services: Yes Alcohol intake: former Patient Tobacco Use Status: Never used Tobacco Cigarette Packs Per Day: 1 Advance Directives Date on File: 06/16/24 service: No Current occupational status: unemployed Physical Exam ED Vital Signs: Vital Signs - 24 hr 06/07/25 11:09 Temperature 98.1 F Pulse Rate 54 Respiratory Rate 14 Blood Pressure 191/56 H Pulse Oximetry 94 Oxygen Delivery Method Room Air BMI result Body Mass Index 30.3 Patient is afebrile and hemodynamically stable. Const General: cooperative and no acute distress Orientation/consciousness: patient oriented x3 HENMT Head: Yes normal to inspection and Yes atraumatic Eyes General: appearance normal, both eyes and all related structures Pupils: Equal, round and reactive pupils present EOM: EOMs intact bilaterally Neck Neck: Yes normal visual inspection, Yes full ROM, Yes supple and No tender Chest Chest palpation & inspection: normal inspection of the chest and normal palpation of entire chest wall Resp Effort & Inspection: normal respiratory effort, able to speak in complete sentences and no cough Auscultation: clear to auscultation bilaterally Cardio Rate: regular rate Rhythm: regular rhythm Peripheral pulses: Peripheral pulses 2+ throughout GI Inspection: Yes normal to inspection, No Abdominal wall edema and No distended Palpation (GI): Soft to palpation, not firm, nontender, no guarding and not rigid Auscultation: normal bowel sounds Back/Spine/Pelvis Other: + reproducible right lower flank pain, no central bony tenderness/step- off/crepitus Neuro General: patient oriented x3 Cranial nerves: Yes Equal, round and reactive pupils present Extrem Other: LUE: + tenderness to hand and distal wrist, able to move all digits. Palpable radial pulse. No skin abnormalities. No tenderness to elbow or shoulder. Lower extremities atraumatic. Course Course Course Narrative: Patient is afebrile and hemodynamically stable. Hypertensive. Given nausea/vomiting this morning, will obtain screening labs and EKG. Will obtain XR Left Wrist/Hand, CT Head/Neck, CT Chest/Abdomen/Pelvis for trauma imaging. At the end of initial history and exam patient started with vomiting NBNB. Providing IV 1L fluids, 4mg IV Zofran for anti-emetic, and Tylenol 1g IV for pain control. Labs reviewed. No significant leukocytosis. No significant anemia. Cr 1.42, prior Cr was 1.37 on 06/01/2025. Troponin 18.8, prior was 32.8 in 12/2023. XR Left Hand is unremarkable for traumatic abnormalities. XR Left Wrist with possible acute on chronic distal radial fx, as this does correlate with patient's pain on exam, I will immobilize. CT Head is unremarkable for acute traumatic abnormalities. CT Cervical Spine is unremarkable for acute traumatic abnormalities. CT Chest is unremarkable for acute traumatic abnormalities. Does note a 3cm irregular attenuated left upper lung abnormality. Small pericardial effusion. CT Abdomen/Pelvis is unremarkable for acute traumatic abnormalities. Patient and daughter at bedside informed of incidental lung nodule. 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 From a trauma point of view patient likely has an acute on chronic non-displaced distal radius fx. I discussed immobilization options with the patient and daughter. Will place a removable splint for comfort. Suspect right sided back spasm 2/2 to MSK injury. Patient is able to ambulate. Plan: Discharge to home Condition: Stable Medications Administered Discontinued Medications Generic Name Dose Route Start Last Admin Trade Name Freq PRN Reason Stop Dose Admin Sodium Chloride 1,000 mls @ 999 mls/hr 06/07/25 11:45 06/07/25 14:10 Ns IV 06/07/25 12:45 Infused .Q1H1M THAD Infusion Acetaminophen 1,000 mg in 100 mls @ 400 mls/hr 06/07/25 11:35 06/07/25 14:10 Ofirmev IV 06/07/25 11:49 Infused ONCE ONE Infusion Iohexol 100 ml 06/07/25 12:52 06/07/25 12:55 Iohexol 350 Mg/Ml 100 Ml Infus..Btl IV 06/07/25 12:53 85 ml ONCE ONE Administration Ondansetron HCl 4 mg 06/07/25 11:34 06/07/25 12:26 Ondansetron Hcl 4 Mg/2 Ml Vial IVPUSH 06/07/25 11:35 4 mg ONCE ONE Administration Medical Decision Making Lab Data 06/07/25 11:49 06/07/25 11:49 Labs: Lab Results 06/07/25 Range/Units 11:49 WBC 12.3 H (4.8-10.8) X10*3/uL RBC 4.28 (4.20-5.50) X10*6/uL Hgb 12.5 (12.0-16.0) g/dl Hct 39.5 (37.0-47.0) % MCV 92.3 (80.0-98.0) fL MCH 29.2 (27.0-33.0) pg MCHC 31.6 (31.0-35.0) g/dl RDW 13.6 (11.0-16.0) % Plt Count 262 (160-400) X10*3/uL MPV 10.4 (9.4-12.3) fL Immature Gran % (Auto) 0.5 H (0.0-0.4) % Neut % (Auto) 67.0 (45-73) % Lymph % (Auto) 21.0 (20-40) % [place] % (Auto) 7.8 (2-11) % Eos % (Auto) 3.1 (0-4) % Baso % (Auto) 0.6 (0-2) % Lymph # (Auto) 2.6 (1.2-4.9) X10*3/uL [place] # (Auto) 1.0 (0.1-1.2) X10*3/uL Eos # (Auto) 0.4 (0.0-0.4) X10*3/uL Baso # (Auto) 0.1 (0.0-0.2) X10*3/uL Abs Immat Gran (auto) 0.06 H (0.00-0.03) X10*3/uL Absolute Neuts (auto) 8.3 (2.0-8.3) x10*3/uL Absolute Nucleated RBC 0.000 (0.0-0.012) X10*3/uL Nucleated RBC % (auto) 0.0 (0.0-0.2) /100WBC Sodium 141 (135-145) mmol/L Potassium 4.1 (3.3-5.1) mmol/L Chloride 109 H (96-108) mmol/L Carbon Dioxide 26 (22-29) mmol/L Anion Gap 10 L (12-20) BUN 27 H (9-16) mg/dL Creatinine 1.42 H (0.5-1.4) mg/dL Estim Creat Clear Calc 25.2 Estimated GFR 35 Random Glucose 221 H (60-115) mg/dL Calcium 10.0 D (8.4-10.2) mg/dL Total Bilirubin 0.9 (0.0-1.0) mg/dL Direct Bilirubin 0.3 (0.0-0.5) mg/dL AST 23 (5-31) U/L ALT 10 (0-31) U/L Alkaline Phosphatase 76 (39-117) U/L Troponin I High Sens 18.8 H (<3.5-17.0) ng/L Total Protein 6.6 (6.5-8.0) g/dL Albumin 3.9 (3.5-5.0) g/dL Lipase 27 (8-78) U/L Independent Interpretation I performed an independent interpretation of an: EKG Interpretation: EKG independently interpreted by myself as SB 54BPM with + LBBB. Radiology Impression Discussion of test interpretation with radiology: I have reviewed the radiologist's reading. Radiologist Impression: EXAMINATION: XR HAND, LEFT CLINICAL INFORMATION: Fall COMPARISON: June 15, 2021 TECHNIQUE: PA, lateral, and oblique views of the left hand. FINDINGS: There is diffuse osteopenia. XR/XR hand LT min 3V IMPRESSION: Osteopenia. Electronically signed by: Bay Cabrera MD 06/07/2025 12:48 PM [facility] [place]: XR WRIST, LEFT CLINICAL INFORMATION: Fall COMPARISON: June 15 2021 TECHNIQUE: PA, lateral, oblique, and scaphoid views of the left wrist. FINDINGS: There is diffuse osteopenia. There is buckling of the distal radius through the region of the sigmoid notch that was faintly visible on the prior examination and appears more dense on the current study suggesting a healed fracture. There is vascular calcification. No abnormality is evident. XR/XR wrist LT min 3V IMPRESSION: Advanced osteopenia limits the study. There is medial buckling of the ulnar side of the distal radius that was faintly visible on the x-ray in 2020. Likely, this is a chronic healed fracture. Correlate for focal pain. Electronically signed by: Bay Cabrera MD 06/07/2025 12:54 PM [facility] EXAMINATION: CT HEAD WITHOUT CONTRAST CLINICAL INFORMATION: Fall COMPARISON: December 30, 2024 TECHNIQUE: Contiguous axial imaging was performed from the skull base to vertex without intravenous administration of contrast. This CT examination was performed using dose optimization techniques as appropriate, variously including the following: *Automated exposure control *Adjustment of mA and/or kV according to patient size (this includes techniques or standardized protocols for targeted exams where dose is matched to indication/reason for exam; i.e. extremities or head) *Use of iterative reconstruction technique FINDINGS: There is no acute ischemic change. Chronic periventricular hypodensities are present. There is no intracranial hemorrhage. There is no mass-effect or midline shift. There is mild generalized atrophy. Basal cisterns and ventricles are within normal limits for age/cerebral volume. Orbits are symmetrical and unremarkable. Paranasal sinuses and mastoid air cells are pneumatized. There are no bony abnormalities. CT/CT head/brain wo IV con IMPRESSION: No acute intracranial abnormality. Stable chronic changes. Electronically signed by: Bay Cabrera MD 06/07/2025 01:23 PM [facility] EXAMINATION: CT CERVICAL SPINE WITHOUT CONTRAST CLINICAL INFORMATION: Fall COMPARISON: 04/27/2022 TECHNIQUE: Axial imaging was performed from the base of the skull through T2 without IV contrast. Coronal and sagittal reformatted images were generated from the original axial data set. ALARA: The examination used one or more of the following radiation dose reduction techniques: Automated exposure control, iterative reconstruction, and/or adjustment of mA and/or KV. FINDINGS: No prevertebral soft tissue swelling is seen. 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 Moderate to severe degenerative changes are again identified C3-4 through 6 7. There is grade 1 retrolisthesis of C3-4. No fracture line is evident. Paraseptal and centrilobular emphysema is again identified in the lung apexes. CT/CT cervical spine wo IV con IMPRESSION: No acute fracture. Moderate to severe degenerative disease C3-4 through C6-7. Electronically signed by: Bay Cabrera MD 06/07/2025 01:30 PM EST EXAMINATION: CT CHEST WITH CONTRAST CLINICAL INFORMATION: Status post fall. Right flank pain. Nausea. Vomiting. COMPARISON: April 27, 2022. TECHNIQUE: Multidetector volumetric CT imaging of the chest was obtained after the administration of 85 mL of Omnipaque 350 intravenous contrast without immediate adverse reactions. Axial MIP volume rendering provided. Sagittal and coronal reformatted images were obtained. This CT examination was performed using dose optimization techniques as appropriate, variously including the following: *Automated exposure control *Adjustment of mA and/or kV according to patient size (this includes techniques or standardized protocols for targeted exams where dose is matched to indication/reason for exam; i.e. extremities or head) *Use of iterative reconstruction technique DLP: 301 mGy-cm FINDINGS: ACQUISITIONS ANALYST: Patient's large body habitus. Heart size is enlarged. Multilevel spondylosis. LUNGS: There is a faint wall and air-filled cyst extending from the perihilar region to the mid lungs mostly to the upper lung lobes and to a lesser extent lower lung lobes. There is a 3 cm irregular shaped soft tissue attenuation in the left upper lung lobe. Pulmonary mosaic pattern. 6 mm pulmonary nodule, lingula. MEDIASTINUM: Mediastinal lymphadenopathy. Small volume pericardial effusion. Calcified plaques throughout the thoracic aorta its main branches and the coronary arteries. No gross aneurysm or dissection, thoracic aorta. There is normal IV contrast enhancement of the main pulmonary artery and its main branches. There is a 9 mm cystic lesion in the left thyroid lobe. Hiatal hernia, moderate size. Enlargement of the all 4 chambers of the heart. PLEURA: No pneumothorax. No hemothorax. No calcified pleural plaques. No gross pleural effusion. AXILLA: No lymphadenopathy. UPPER ABDOMEN: Hernia, moderate size. OSSEOUS STRUCTURES: No acute displaced rib fractures. Old healed rib fractures. Multilevel spondylosis throughout the axial skeleton. Osteopenia versus osteoporosis. No acute fracture or listhesis in the axial skeleton. Sternum is intact. CT/CT chest w IV con IMPRESSION: No intrathoracic traumatic injury or acute fracture. 3 cm irregular attenuation, left upper lung lobe concerning for malignancy. Thin-walled pulmonary cystic lesions, perihilar and upper lung lobes. Cardiomegaly. Small pericardial effusion. Coronary artery disease and atherosclerosis disease. Fleischner guidelines were followed. Electronically signed by: Vel Rooney MD 06/07/2025 01:36 PM [facility] [place] Discharge Clinical Impression: Distal radial fracture, Back spasm, Lung nodule Patient Disposition: Home, Self-Care Instructions: Wrist Fracture in Adults (ED) Additional Instructions: You were seen today after a fall yesterday. You had XR of your left wrist/hand and CT scans of your head/neck/chest/abdomen/pelvis. The XR of your wrist showed an acute on chronic fracture. Wear the sling for comfort for the next 4 - [address] scans did not show any fractures/broken bones. It did show the incidental lung nodule we spoke about. We discussed calling your lung doctor for an appointment as soon as possible. For your back pain I recommend rest, ice, tylenol 1g (2 pills) every 6 hours as needed, over the counter lidoderm patches that you can put right on your back for 12 hours and then remove for 12 hours. EXAMINATION: CT CHEST WITH CONTRAST CLINICAL INFORMATION: Status post fall. Right flank pain. Nausea. Vomiting. COMPARISON: April 27, 2022. TECHNIQUE: Multidetector volumetric CT imaging of the chest was obtained after the administration of 85 mL of Omnipaque 350 intravenous contrast without immediate adverse reactions. Axial MIP volume rendering provided. Sagittal and coronal reformatted images were obtained. This CT examination was performed using dose optimization techniques as appropriate, variously including the following: *Automated exposure control *Adjustment of mA and/or kV according to patient size (this includes techniques or standardized protocols for targeted exams where dose is matched to indication/reason for exam; i.e. extremities or head) *Use of iterative reconstruction technique DLP: 301 mGy-cm FINDINGS: ACQUISITIONS ANALYST: Patient's large body habitus. Heart size is enlarged. Multilevel spondylosis. LUNGS: There is a faint wall and air-filled cyst extending from the perihilar region to the mid lungs mostly to the upper lung lobes and to a lesser extent lower lung lobes. There is a 3 cm irregular shaped soft tissue attenuation in the left upper lung lobe. Pulmonary mosaic pattern. 6 mm pulmonary nodule, lingula. MEDIASTINUM: Mediastinal lymphadenopathy. Small volume pericardial effusion. Calcified plaques throughout the thoracic aorta its main branches and the coronary arteries. No gross aneurysm or dissection, thoracic aorta. There is normal IV contrast enhancement of the main pulmonary artery and its main branches. There is a 9 mm cystic lesion in the left thyroid lobe. Hiatal hernia, moderate size. Enlargement of the all 4 chambers of the heart. PLEURA: No pneumothorax. No hemothorax. No calcified pleural plaques. No gross pleural effusion. AXILLA: No lymphadenopathy. UPPER ABDOMEN: Hernia, moderate size. OSSEOUS STRUCTURES: No acute displaced rib fractures. Old healed rib fractures. Multilevel spondylosis throughout the axial skeleton. Osteopenia versus osteoporosis. No acute fracture or listhesis in the axial skeleton. Sternum is intact. CT/CT chest w IV con IMPRESSION: No intrathoracic traumatic injury or acute fracture. 3 cm irregular attenuation, left upper lung lobe concerning for malignancy. Thin-walled pulmonary cystic lesions, perihilar and upper lung lobes. Cardiomegaly. Small pericardial effusion. Coronary artery disease and atherosclerosis disease. Prescriptions: No Action albuterol sulfate 2.5 mg /3 mL (0.083 %) solution for nebulization 2.5 mg inhalation Q4-6H PRN (Reason: for wheezing) Qty: 75 3RF albuterol sulfate [Ventolin HFA] 90 mcg/actuation HFA aerosol inhaler 2 puff PO Q8H PRN (Reason: shortness of breath or wheezing) Qty: 18 3RF insulin glargine [Lantus U-100 Insulin] 100 unit/mL Solution 12 unit SUBCUT DAILY@0900 Rx Instructions: 12 Units in the Morning. (DME) FreeStyle Lite Strips Strip MISCELLANEOUS TID Jardiance 10 mg Tablet 10 mg PO DAILY polyethylene glycol 3350 [Miralax] 17 gram/dose Powder 17 g PO DAILY PRN (Reason: Constipation ) Qty: 238 1RF cyanocobalamin (vitamin B-12) 500 mcg Lozenge 500 mcg PO DAILY Qty: 90 1RF ferrous sulfate 324 mg (65 mg iron) Tablet,Delayed Release (Dr/Ec) 324 mg PO BIDWM Qty: 60 1RF losartan 25 mg tablet 25 mg PO DAILY hydralazine 10 mg tablet 10 mg PO TID docusate sodium 100 mg capsule 100 mg PO DAILY verapamil 240 mg tablet extended release 240 mg PO BEDTIME pravastatin 20 mg tablet 20 mg PO BEDTIME insulin aspart U-100 [Novolog FlexPen U-100 Insulin] 100 unit/mL (3 mL) insulin pen See Protocol subcut TIDWM Protocol: Insulin Correction Scale Less than or equal to 110 ---- Give (units): 0 111 to 150 Give (units): 0 151 to 200 Give (units): 2 201 to 250 Give (units): 4 251 to 300 Give (units): 6 301 to 350 Give (units): 8 Greater than 350 Give (units): 10 Call MD if Blood Glucose > : 350 furosemide 20 mg Tablet 20 mg PO DAILY Qty: 30 0RF Protocol: Hold for SBP< HOLD for SBP < : 90 prednisone 2.5 mg tablet 10 mg PO DAILY Rx Instructions: 7.5 mg for April, 5 mg for May, and 2.5 mg for June/until finished per patient and daughter 08/11/24 PT'S DAUGHTER STATED 10MG DAILY (DME) lancets 30 gauge misc See Rx Instructions .ROUTE .MEDSUPPLY Qty: 100 Rx Instructions: As directed magnesium oxide 400 mg (241.3 mg magnesium) tablet 400 mg PO BID aspirin 81 mg tablet,delayed release (DR/EC) 81 mg PO DAILY (DME) inhalat.spacing dev,large mask Spacer See Rx Instructions .ROUTE .MEDSUPPLY Qty: 1 Rx Instructions: As directed (DME) blood sugar diagnostic Strip See Rx Instructions Not Applicable .MEDSUPPLY Qty: 10 Rx Instructions: As directed omeprazole 20 mg capsule,delayed release(DR/EC) 20 mg PO DAILY@0630 Print Language: Chinese
[2025-06-07 11:07] VITALS: BP 234/80; PULSE 50; O2SAT 95
[2025-06-07 11:09] VITALS: BP 191/56; PULSE 54; RESP 14; TEMP 36.7; O2SAT 94; BMI 30.3
--- NOTE | 2025-06-07 11:22 | ECG_ITS ---
Test Reason : HEART SCREENING Blood Pressure : */* mmHG Vent. Rate : 54 BPM Atrial Rate : 54 BPM P-R Int : 144 ms QRS Dur : 154 ms QT Int : 510 ms P-R-T Axes : 25 -18 107 degrees QTcB Int : 483 ms Sinus bradycardia Left bundle branch block Abnormal ECG When compared with ECG of 08-Mar-2025 10:20, No significant change was found Referred By: Yadira Hobbs Electronically Signed By: KATI ALVAREZ MD
[2025-06-07 11:53] LABS: MANUAL DIFF FLAG NO
[2025-06-07 11:56] LABS: Hematocrit 39.5 % (37.0-47.0); Hemoglobin 12.5 g/dl (12.0-16.0); Imm Gran Abs Auto 0.06 X10*3/uL (0.00-0.03); Imm Gran Pct Auto 0.5 % (0.0-0.4); Lymphocytes Absolute Auto 2.6 X10*3/uL (1.2-4.9); Mean Corpuscular HGB Conc 31.6 g/dl (31.0-35.0); Mean Corpuscular Hemoglobin 29.2 pg (27.0-33.0); Mean Corpuscular Volume 92.3 fL (80.0-98.0); NRBC Abs Auto 0.000 X10*3/uL (0.0-0.012); NRBC Pct Auto 0.0 /100WBC (0.0-0.2); Platelet Count 262 X10*3/uL (160-400); Red Blood Count 4.28 X10*6/uL (4.20-5.50); White Blood Count 12.3 X10*3/uL (4.8-10.8)
[2025-06-07 12:16] LABS: Troponin-I High Sensitivity 18.8 ng/L (<3.5-17.0)
[2025-06-07 12:17] LABS: Alanine Aminotransferase 10 U/L (0-31); Albumin Level 3.9 g/dL (3.5-5.0); Alkaline Phosphatase 76 U/L (39-117); Anion Gap 10 (12-20); Aspartate Amino Transferase 23 U/L (5-31); Blood Urea Nitrogen 27 mg/dL (9-16); Calcium 10.0 mg/dL (8.4-10.2); Carbon Dioxide 26 mmol/L (22-29); Chloride 109 mmol/L (96-108); Creatinine Clr Calc Pharmacy 25.2; Estimated Glomerular Filt Rate 35; Lipase 27 U/L (8-78); Potassium 4.1 mmol/L (3.3-5.1); Sodium 141 mmol/L (135-145); Total Protein 6.6 g/dL (6.5-8.0)
[2025-06-07] MEDS: iohexoL 350 MG/ML 100 ML INFUS..BTL IV (12:55)
--- OUTSIDE RECORDS SUMMARY | 2025-06-07 14:27 | XMS_ITS | Encounter Summary ---
Author Organization [facility] Address [address] [place] [address] Care Team Providers Care Layout Mechanic Name Role Phone Teofilo Moreno MD Primary Care Provider [phone] Reason for Visit * Reason Comments home health cert Start of Care Date: 07/03/24Date of certification period: 07/03/24-08/31/24Date of service = signature date 07/14/24ospice patient: [facility] Agency: [facility] Encounter Details Date Type Department Care Team (Late st Contact Info) Description 07/30/2024 Billing Patient Not Present Adult Medicine [address] [phone] Teofilo Moreno MD [address] [place] [address] COPD with acute exacerbation (CMS/HCC V24, CMS/HCC [...] unspecified whether stage 3a or 3b CKD ([facility] V24, [facility] V28); Hyperkalemia; Gastroesophageal reflux disease without esophagitis; FPC (current) use of insulin ([facility] V24, [facility] V28); Other specified rheumatoid arthritis, multiple sites ([facility] V24, [facility] V28); Other emphysema ([facility] V24, [facility] V28); Hypomagnesemia; Hyperlipidemia, unspecified hyperlipidemia type; Pulmonary hypertension, unspecified ([facility] V24, [facility] V28); FPC (current) use of aspirin Social History Tobacco [...] Care Team (Late st Contact Info) Description 06/08/2025 2:15 PM EST Office Visit Nephrology - [address] [phone] Bharath Gonsalez MD [address] [facility] [address] [place] [address] 07/27/2025 2:15 PM EST Office Visit Endocrinology [address] [phone] Gladys Sow PA [address] [place], [place] 08/17/2025 2:30 PM EST Office Visit Adult Medicine [address] [phone] Frantz Martinez PA [address] [place] [address] documented as of this encounter Visit Diagnoses Diagnosis COPD with acute exacerbation ([facility] V24, [facility] V28)- Primary Acute respiratory failure with hypoxia ([facility] V24, [facility] V28) Other disorders of lung Acquired hemolytic anemia, unspecified ([facility] V24, [facility] V28) Acquired hemolytic anemia, unspecified 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 ([facility] V24, [facility] V28) Essential (primary) hypertension Unspecified essential hypertension Diastolic congestive heart failure, unspecified HF chronicity ([facility] V24, [facility] V28) Heart failure, unspecified HF chronicity, unspecified heart failure type ([facility] V24, [facility] V28) Mild persistent asthma without complication Stage 3 chronic kidney disease, unspecified whether stage 3a or 3b CKD ([facility] V24, [facility] V28) Hyperkalemia Hyperpotassemia Gastroesophageal reflux disease without esophagitis Esophageal reflux FPC (current) use of insulin ([facility] V24, [facility] V28) Other specified rheumatoid arthritis, multiple sites ([facility] V24, [facility] V28) Other emphysema ([facility] V24, [facility] V28) Other emphysema Hypomagnesemia Disorders of magnesium metabolism Hyperlipidemia, unspecified hyperlipidemia type Pulmonary hypertension, unspecified ([facility] V24, [facility] V28) FPC (current) use of aspirin documented in this encounter Care Teams Layout Mechanic Relationship Specialty Start Date End Date Teofilo Moreno MD [address] [place] [id number] PCP - General Internal Medicine 07/01/24 documented as of this encounter
--- OUTSIDE RECORDS SUMMARY | 2025-06-07 14:27 | XMS_ITS | Clinical Summary ---
Author Organization [facility] [address] [facility] Address [address] [place] [phone] Phone Care Team Providers Care Tank Riveter Name Role Phone Teofilo Moreno MD Primary Care Provider [phone] Allergies Active Allergy Reactions Criticality Noted Date Comments Hiram Inhibitors 01/26/2019 Angioedema per cards note 11/04/18 Amlodipine Swelling 01/13/2014 Enalapril 05/01/2024 Enalapril Maleate 05/01/2024 Enalaprilat 07/18/2017 Other Reaction(s): Rash/Dermatitis Latex 04/09/2016 Nitrofurantoin Itching 11/04/2018 Pineapple 04/09/2016 Other Reaction(s): Hives/Urticaria Medications blood sugar diagnostic (FreeStyle Lite Strips) test strip USE TO TEST THREE TIMES A DAY 4 Active blood-glucose meter,continuo us (DEXCOM G7 STEREOTYPE [facility]STER [facility]) 1 Device by Does not apply route See Admin Instructions. Use daily with dexcom g 7 sensors 3 Active predniSONE (DELTASONE) 10 mg tablet Take 0.5 tablets (5 mg total) by mouth 1 (one) time each day. Active magnesium oxide (MAG-OX) 400 mg (241.3 elemental magnesium) tablet Take 1 tablet by mouth 2 times daily. 2 Active albuterol 2.5 mg /3 mL (0.083 %) nebulizer solution TAKE 1 VIAL BY NEBULIZATION EVERY 4 HOURS NEEDED FOR WHEEZING. 0 Active ferrous sulfate 324 mg (65 mg elemental iron) EC tablet Take 2 tablets (648 mg total) by mouth 1 (one) time each day with breakfast. Do not crush, chew, or split. Active lancets (Comfort Touch Plus Safety Lanc) 30 gauge misc USE DIRECTED TO TEST BLOOD SUGAR THREE TIMES DAILY 100 each 11 5 Active meclizine (ANTIVERT) 12.5 mg tablet Take 1 tablet (12.5 mg total) by mouth every 8 (eight) hours. 50 tablet 5 5 Active albuterol HFA (PROAIR HFA ; PROVENTIL HFA ; VENTOLIN HFA) 90 mcg/actuation inhaler Inhale 2 puffs by mouth every 6 (six) hours if needed for wheezing. 18 g 1 5 Active losartan (COZAAR) 25 mg tablet Take 2 tablets (50 mg total) by mouth 1 (one) time each day. 90 tablet 1 5 Active golimumab (SIMPONI ARIA IV) Infuse into a venous catheter. Active hydrALAZINE (APRESOLINE) 25 mg tablet Take 1 tablet (25 mg total) by mouth 2 (two) times a day. 180 each 3 5 026 Active pen needle, diabetic (BD Ultra-Fine Short Pen Needle) 31 gauge x 5/16 needle Use to inject 1-4 times daily as directed 400 each 3 5 Active insulin glargine (Lantus Solostar U-100 Insulin) 100 unit/mL (3 mL) injection pen Inject 12 Units into the skin every morning. 15 mL 5 5 Active insulin aspart (NovoLOG Flexpen U-100 Insulin) 100 unit/mL (3 mL) injection pen Use 3 times a day with meals per scale: ,100-149: 3 units 150-200: 5 units; 201-250: 7 units; 251-300: 8 units; 301-350: 9 units; 351-400: 10 unit 15 mL 5 5 Active omeprazole (PriLOSEC) [address] capsule TAKE 1 CAPSULE BY MOUTH 1 TIME EACH DAY. 90 capsule 1 5 Active aspirin 81 mg EC tablet TOME 1 TABLETA POR VIA ORAL TODOS LOS VALENCIA 90 tablet 1 5 Active pravastatin (PRAVACHOL) 20 mg tablet Take 1 tablet (20 mg total) by mouth at bedtime. 90 tablet 1 5 Active predniSONE (DELTASONE) 5 mg tablet Take 1 tablet (5 mg total) by mouth 1 (one) time each day in the morning. Active docusate sodium (COLACE) 100 mg capsule TAKE 1 CAPSULE BY MOUTH ONCE A DAY IF NEEDED FOR CONSTIPATION 30 capsule 5 5 Active verapamil SR (CALAN-SR) 240 mg CR tablet Take 1 tablet (240 mg total) by mouth at bedtime. 90 tablet 1 5 Active empagliflozin (Jardiance) 10 mg tablet Take 1 tablet (10 mg total) by mouth 1 (one) time each day in the morning. 90 tablet 3 5 026 Active empagliflozin (Jardiance) 10 mg tablet Take 1 tablet (10 mg total) by mouth 1 (one) time each day in the morning. 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 She had mild to moderate aortic stenosis with dimensionless index 0.38 and a calculated aortic valve area of 1.6 cm . She also has a history of normal borderline pulmonary hypertension with RV systolic pressure 35 mmHg, mild to moderate left atrial enlargement. Compared with 2021, her aortic valve stenosis was stable. A higher calculated aortic valve area was obtained using an LVOT dimension of 2.3 cm, which should be used on echo going forward. -Cannot get HIRAM inhibitor/ARB/ARNI due to angioedema Assessment & Plan (05/21/2025 1:45 PM EDT): Patient appears euvolemic on exam, some slight lower extremity edema however this appears to be more venous insufficiency, and I spoke to the patient about limiting her sodium consumption, utilizing compression stockings and keeping her feet elevated. Please continue to utilize the Jardiance 10 mg p.o. daily in addition to the verapamil 240 mg at night and losartan 50 mg p.o. daily. In the future if needed could switch verapamil to a beta-broderick however she does have history of COPD/asthma and we do not want to exacerbate this at this time. Will not make any medication changes at the appointment today. Would like her to continue to check her weights daily and reach out if she gains more than 2 pounds in a day or 4 pounds in a week. She is not a candidate for MRA due to elevated creatinine. Assessment & Plan (11/04/2024 4:52 PM EDT): Euvolemic on exam though is having dyspnea with mild to moderate exertion. This is likely multifactorial but I cannot rule out that there is a component of exertional heart failure. She is currently on an unconventional medication regimen. My preference would be to discontinue verapamil and initiate beta-blockers, even with a mildly reduced EF. However, her concurrent asthma could potentially be exacerbated by beta-blockade, thus this approach is being deferred. The plan is to introduce an SGLT2 inhibitor to provide renal protection in the context of diabetes and to reduce the risk of heart failure hospitalization. This may help her blood pressure slightly though not to a significant degree. However I hesitate to make too many changes at once. She will be started on Jardiance 10 mg daily. She is advised to monitor her blood pressure at least three times per week and record the readings. If the readings remain within the normal range, she can continue with her current regimen. However, if her blood pressure readings are elevated, an increase in hydralazine to 20 mg three times daily would be considered. She is scheduled to see Dr. Gonsalez in the near future who can also assist in managing her condition. I have conveyed my recommendations to him via secure text. Pulmonary fibrosis ([facility] V24, [facility] V28) Leukocytosis 05/01/2024 Overview (05/01/2024): [facility] heme/onc HTN (hypertension) 05/01/2024 Overview (05/01/2024): Last Assessment & Plan: Regarding hypertension the patient most recently met with her varnish melter helper. He suggested that he would avoid tight control of blood sugar. Here on exam she is a 140/60. I have made no adjustments in her medication. I have reminded her that she needs to follow a strict low-sodium diet. She should be drinking adequate amount of water avoiding excess. He has agreed to monitor her heart rate and blood pressure at home more closely. Assessment & Plan (05/21/2025 1:46 PM EDT): Suboptimal today however she reports that blood pressure measurements at home are controlled. She should be drinking adequate amounts of water and avoiding excess. Continue to monitor blood pressure and heart rate at home. Assessment & Plan (11/04/2024 4:52 PM EDT): Suboptimally controlled-she will likely need increase in her hydralazine dose but since I am starting her on SGLT2 inhibitor today, I did not want to do too much at once. Discussed plan with Dr. Gonsalez her varnish melter helper whom she will be seeing next month. Orders: ECG 12 lead Severe obesity (BMI 35.0-39. 9) with comorbidity ([facility] V24, [facility] V28) 03/12/2022 Seborrheic dermatitis 09/07/2021 Post-inflammatory hyperpigmentation 09/07/2021 Overview (05/01/2024): Follows [facility]. Mitral valve regurgitation 12/14/2020 Overview (05/01/2024): Mitral valve regurgitation Microalbuminuria 02/25/2019 DM (diabetes mellitus), type 2 with renal complications ([facility] V24, [facility] V28) 02/25/2019 LBBB (left bundle branch block) 11/04/2018 Assessment & Plan (05/21/2025 1:46 PM EDT): The left bundle branch block has been well documented there are no symptoms of concern. We will continue to monitor. He has had no syncope, she is having no anginal symptoms. Hypomagnesemia 01/27/2018 Aortic valve stenosis 01/27/2018 Overview (05/01/2024): Last Assessment & Plan: The patient's last echocardiogram is appreciated from September 2021. On exam today her murmur does not auscultate consistent with severe aortic stenosis nor is she reporting any symptoms to support this. I would like to do a 2-year follow-up from her last test which would be this coming September in 2023 and they have readily agreed. I have reviewed with she and her daughter symptoms to be wear off that can correlate with worsening/severe aortic stenosis and if they believe any of this is developing we need to be notified immediately. In the meantime we will try to walk for exercise within her physical limitations follow a low-sodium diet and be sure that she has good controlled blood pressure not over titrated too low. Assessment & Plan (05/21/2025 1:43 PM EDT): Will update echocardiogram next year. Went over signs of worsening symptoms. Echocardiogram from [id number] reveals the aortic stenosis appears to be stable. Assessment & Plan (11/04/2024 4:52 PM EDT): Her aortic stenosis is currently mild to moderate. A surveillance echocardiogram will be repeated in 2 years. Sounds no more than moderate by exam. 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 Chilo Blveins, Prempro [id number], Reclast yearly since 201408/01/2018 Lumbar Spine T-score is +2.0 (SD relative to 20-29 y/o adult) Z-score is +4.5 (SD relative to age matched peers) This is normal by criteria defined by the WHO. 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 Her LDL is 70 her HDL is 69. Recommend healthful diet optimizing her overall glucose control she is now on insulin. Assessment & Plan (05/21/2025 1:45 PM EDT): Controlled on pravastatin 20 mg p.o. daily. Recommend improving her diet and glucose control. Asthma 01/13/2014 Resolved Problems Problem Noted Date Diagnosed Date Resolved Date CKD (chronic kidney disease) stage 4, GFR 15-29 ml/min ([facility] V24, [facility] V28) 03/06/2021 12/01/2024 Encounters Date Type Department Care Team Description 06/03/2025 1:35 PM EST Lab Draw Station - [address] [phone] Secondary hypertension; Heart failure with mildly reduced ejection fraction ([facility] V24, [facility] V28); Type 2 diabetes mellitus with diabetic microalbuminuria, unspecified whether jail insulin use ([facility] V24, [facility] V28); Hypomagnesemia 05/21/2025 1:10 PM EDT Office Visit [facility] [address] [place] [address] Joel Castano NP Nonrheumatic aortic valve stenosis (Primary Dx); Heart failure with mildly reduced ejection fraction (CMS/HCC V24, CMS/HCC V28); Primary hypertension; LBBB (left bundle branch block); Hyperlipidemia, unspecified hyperlipidemia type; Mitral valve insufficiency, unspecified etiology from Last 3 Months Immunizations Immunization Administration Dates Next Due Influenza trivalent, 0.5mL ( Fluzone High-dose) 65yo and older 05/09/2022,04/12/2021,05/17/2020,06/03,04/29/2018,05/10/2015,07/06/2011 Influenza trivalent, with pr eservative (Fluzone; Afluria) 6mo and older 08/11/2012 Influenza, Unspecified 06/20/2014 Pneumococcal polysaccharide 23 valent (Pneumovax 23) 2yo and older 03/03/2019,04/02/2016,08/08/2001 Td Tetanus diptheria (Tdvax) 7yo and older 08/01/2016,02/17/2014,11/15/2003,08/29 Tdap Tetanus diptheria acell ular pertussis (Boostrix; Adacel) 7yo and older 03/17/2013 Surgical History Surgery Date Site/Laterality Comments CHOLECYSTECTOMY 2012 PROCEDURE: HISTORICAL CHOLECYSTECTOMY COLONOSCOPY 12/2007, 12/2013 PROCEDURE: HISTORICAL COLONOSCOPY; COMMENT: Dr Jennings, 2013 normal TUBAL LIGATION PROCEDURE: HISTORICAL TUBAL LIGATION UPPER GASTROINTESTINAL ENDOSCOPY 12/2013 PROCEDURE: ME UPPER GI ENDOSCOPY PERFORMED; COMMENT: Dr Jennings, small hiatal hernia CATARACT EXTRACTION PROCEDURE: HISTORICAL CATARACT REMOVAL Medical History Medical History Date Comments Anemia 06/14/2016 DX:Anemia; COMME NT: Iron def and b-12 :[facility] Heme/Onc Asthma 01/13/2014 DX:Asthma Hiatal hernia 07/18/2017 DX:Hiatal hernia ; COMMENT: EGD 2013 HTN (hypertension) DX:HTN (hyper tension) Hyperlipidemia 01/13/2014 DX:Hyperlipidemi a Leukocytosis DX:Leukocytosis; COMMENT: [facility] heme/onc OA (osteoarthritis) 07/18/2017 DX:OA (osteo arthritis) Obesity 01/13/2014 DX:Obesity Osteopenia 05/30/2015 DX:Osteopenia; C OMMENT: Peripheral neuropathy 06/08/2015 DX:Periphe ral neuropathy Positive PPD, 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/2016 DX:Positiv e PPD, treated; COMMENT: Per transfer note Psoriasis 07/18/2017 DX:Psoriasis Pulmonary fibrosis ([facility] V24, [facility] V28) DX:Pulmonary fibrosis (HCC) Rheumatoid arthritis ([facility] V24, [facility] V28) 01/13/2014 DX:Rheumatoid arthritis (HCC ); COMMENT: Steroid dependent, [facility] Vitamin B 12 deficiency 07/18/2017 DX:Vitam in B 12 deficiency Diastolic dysfunction DX:Diastol ic dysfunction; COMMENT: mild, echo Aortic stenosis DX:Aortic stenos is Microalbuminuria 02/25/2019 DX:Microalbumin uria Type 2 diabetes mellitus wit h renal manifestations ([facility] V24, [facility] V28) 02/25/2019 DX:Type 2 diabetes mellitus with renal manifestations ([facility]) History of arm fracture 05/19/2018 DX:Histo ry of arm fracture; COMMENT: Fell 02/17/2014, Right elbow fracture. Sling used Confusion 08/04/2018 DX:Confusion LBBB (left bundle branch block) 11/04/2018 DX:LBBB (left bundle branch block) Hypomagnesemia 01/27/2018 DX:Hypomagnesemi a History of tobacco use DX:Histor y of tobacco use CKD (chronic kidney disease) stage 4, GFR 15-29 ml/min ([facility] V24, [facility] V28) 03/06/2021 DX:CKD (chronic kidney disea se) stage 4, GFR 15-29 ml/min ([facility]) Family History Medical History Relation Name Comments Diabetes Mother's side grandmother Breast cancer Other m cousin Relation Name Status Comments Mother's side Other m cousin Social History Tobacco Use Types Packs/Day Years Used Date Smoking Tobacco: Former Smokeless Tobacco: Never Tobacco Cessation:Counseling Given: Not Answered Alcohol Use Standard Drinks/Week Comments Not Currently 0 (1 standard drink = 0.6 oz pur e alcohol) Comments No Sex and Gender Information Value Date Recorded Sex Assigned at Not on file Legal Sex Female 6:14 AM EST Gender Identity Not on file Sexual Orientation Not on file Obstetrics History Last Filed Vital Signs Vital Sign Reading Time Taken Comments Blood Pressure 164/62 05/21/2025 1:04 PM EDT Pulse 60 05/21/2025 1:04 PM EDT Temperature 36.3 C (97.4 F) 02/09/2025 1:20 PM EDT Respiratory Rate 16 02/09/2025 1:20 PM EDT Oxygen Saturation 96% 05/21/2025 1:04 PM EDT Inhaled Oxygen Concentration - - Weight 68.6 kg (151 lb 3.2 oz) 05/21/2025 1:04 P M EDT Height 149.9 cm (4' 11 ) 05/21/2025 1:04 PM EDT Body Mass Index 30.54 05/21/2025 1:04 PM EDT Plan of Treatment Upcoming Encounters Date Type Department Care Team (Late st Contact Info) Description 06/08/2025 2:15 PM EST Office Visit Nephrology - [address] [phone] Bharath Gonsalez MD [address] [place] [address] 07/27/2025 2:15 PM EST Office Visit Endocrinology [address] [phone] Gladys Sow PA [address] [place] [address] 08/17/2025 2:30 PM EST Office Visit Adult Medicine [address] [phone] Frantz Martinez PA [address] [place] [address] Health Maintenance Due Date Last Done Comments COVID-19 Vaccine (#1) 1945 Diabetes: Annual Foot Exam 1951 Zoster Vaccines (1 of 2) 1960 RSV Immunization Adult Patients (1 - 1-dose 75+ series) 2016 Pneumococcal Vaccine: 50+ Years (2 of 2 - PCV) 03/03/2020 03/03/2019, 04/02/2016, 08/08/2001 Falls Risk Assessment 07/07/2022 Social Influencers of Health Screening 07/07/2022 Depression Screening 07/29/2024 Diabetes: Annual Retina Eye Exam 03/26/2025 03/26/2024 Influenza Vaccine (#1) 2025 , 05/09/2022, 04/13/2022, Additional history exists Diabetes: Blood Sugar Control Test (HGBA1C) 07/06/2025 01/04/2025, 06/16/2024, 02/13/2024, Additional history exists Diabetes: Annual Urine Albumin-Creatinine Ratio (uACR) 02/09/2026 02/09/2025, 02/13/2024 Diabetes: Annual GFR (Glomerular Filtration Rate) 06/03/2026 06/03/2025, 02/09/2025, 08/11/2024, Additional history exists Hypertension/CHF/CAD Annual BMP Blood Test 06/03/2026 06/03/2025, 02/09/2025, 08/11/2024, Additional history exists DTaP,Tdap,and Td Vaccines (6 - Td or Tdap) 08/01/2026 08/01/2016, 02/17/2014, 03/17/2013, Additional history exists Cholesterol Screening (Lipid Panel) 02/09/2030 02/09/2025, 02/13/2024, 02/13/2024, Additional history exists Osteoporosis Screening (Bone Density Screening) 02/09/2032 02/08/2022, 08/01/2018 HIB Vaccines Aged Out No longer eligi ble based on patient's age to complete this topic HPV Vaccines Aged Out No longer eligi ble based on patient's age to complete this topic Hepatitis A Vaccines Aged Out No long er eligible based on patient's age to complete this topic Hepatitis B Vaccines Aged Out No long er eligible based on patient's age to complete this topic IPV Vaccines Aged Out No longer eligi ble based on patient's age to complete this topic MMR Vaccines Aged Out No longer eligi ble based on patient's age to complete this topic Meningococcal ACWY Vaccine Aged Out N o longer eligible based on patient's age to complete this topic Meningococcal B Vaccine Aged Out No l onger eligible based on patient's age to complete this topic RSV Immunization Patients Under 20 months Aged Out No longer eligible based on patient's age to complete this topic Varicella Vaccines Aged Out No longer eligible based on patient's age to complete this topic Procedures Procedure Name Priority Date/Time Associated Diagnosis Comments CREATININE, SERUM Routine 06/03/2025 1:4 2 PM EST Secondary hypertension Heart failure with mildly reduced ejection fraction (CMS/HCC V24, CMS/HCC V28) Type 2 diabetes mellitus with diabetic microalbuminuria, unspecified whether intermission coordinator insulin use (CMS/HCC V24, CMS/HCC V28) Hypomagnesemia BUN Routine 06/03/2025 1:42 PM EST Secondary hypertension Heart failure with mildly reduced ejection fraction (CMS/HCC V24, CMS/HCC V28) Type 2 diabetes mellitus with diabetic microalbuminuria, unspecified whether intermission coordinator insulin use (CMS/HCC V24, CMS/HCC V28) Hypomagnesemia ELECTROLYTE PANEL Routine 06/03/2025 1:4 2 PM EST Secondary hypertension Heart failure with mildly reduced ejection fraction (CMS/HCC V24, CMS/HCC V28) Type 2 diabetes mellitus with diabetic microalbuminuria, unspecified whether intermission coordinator insulin use (CMS/HCC V24, CMS/HCC V28) Hypomagnesemia PROTEIN AND CREATININE WITH RATIO, URINE Routine 06/03/2025 1:42 PM EST Secondary hypertension Heart failure with mildly reduced ejection fraction (CMS/HCC V24, CMS/HCC V28) Type 2 diabetes mellitus with diabetic microalbuminuria, unspecified whether intermission coordinator insulin use (CMS/HCC V24, CMS/HCC V28) Hypomagnesemia MICROALBUMIN CREATININE URINE RATIO Routine 02/09/2025 1:53 PM EDT Type 2 diabetes mellitus with diabetic microalbuminuria, unspecified whether intermission coordinator insulin use (CMS/HCC V24, CMS/HCC V28) LIPID PANEL WITH REFLEX TO DIRECT LDL Routine 02/09/2025 1:53 PM EDT Pure hypercholesterolemia HEMOGLOBIN A1C Routine 01/04/2025 4:17 PM EDT Diabetes mellitus type 2 with neurological manifestations ([facility] V24, [facility] V28) DIABETIC RETINOPATHY SCREENING Routine 03/26/2024 9:38 AM EDT DXA BONE DENSITY STUDY 1+ SITS AXIAL SKEL Routine 02/08/2022 2:57 PM EDT Encounter for screening for osteoporosis from Last 3 Months or Most Recently Relevant to Health Maintenance Results * (ABNORMAL) Protein and creatinine with ratio, urine (06/03/2025 1:42 PM EST) Protein, Urine 103 mg/dL LAB CHEMISTRY METHOD 06/03/2025 5:00 PM EST [facility] Prot/Creat, Ur 0.96(H) <=0.20 mg/mg creat LAB CHEMISTRY METHOD 06/03/2025 5:00 PM EST [facility] Creatinine, Urine 107.0 mg/dL LAB CHEMISTRY METHOD 06/03/2025 5:00 PM EST [facility] Urine Urine specimen obtained by clean catch procedure / Unknown Non-blood Collection / Unknown 06/03/2025 1:42 PM EST 06/03/2025 1:42 PM EST us Bharath Gonsalez MD LAB URINE ORDERABLES Final Resu lt [facility] [address] [place] [address], [place] [phone] * (ABNORMAL) Creatinine (06/03/2025 1:42 PM EST) Creatinine 1.49(H) 0.50 - 1.10 mg/dL LAB CHEMISTRY METHOD 06/03/2025 4:48 PM EST [facility] eGFR 35(L) >=60 mL/min/1. 73m2 LAB CHEMISTRY METHOD 06/03/2025 4:48 PM EST [facility] Comment:Calculation based on the Chronic Kidney Disease Epidemiology Collaboration (CKD-EPI) equation refit without adjustment for race. Blood Venous blood specimen / Unknown Venipuncture / Unknown 06/03/2025 1:42 PM EST 06/03/2025 1:42 PM EST us Bharath Gonsalez MD LAB BLOOD ORDERABLES Final Resu lt Performing Organization Address City/[facility]/ZIP Co de Phone Number [facility] [address] [place] [address], [place] [phone] * (ABNORMAL) BUN (06/03/2025 1:42 PM EST) BUN 32(H) 5 - 25 mg/dL LAB CHEMISTRY METHOD 06/03/2025 4:48 PM EST [facility] Blood Venous blood specimen / Unknown Venipuncture / Unknown 06/03/2025 1:42 PM EST 06/03/2025 1:42 PM EST us Bharath Gonsalez MD LAB BLOOD ORDERABLES Final Resu lt Performing Organization Address City/[facility]/ZIP Co de Phone Number [facility] [address] [place] [address], [place] [phone] * Electrolyte panel (06/03/2025 1:42 PM EST) Sodium 138 133 - 145 mmol/L LAB CHEMISTRY METHOD 06/03/2025 4:48 PM EST [facility] Potassium 4.5 3.5 - 5.5 mmol/L LAB CHEMISTRY METHOD 06/03/2025 4:48 PM [facility] Chloride 105 96 - 110 mmol/L LAB CHEMISTRY METHOD 06/03/2025 4:48 PM [facility] CO2 30 21 - 32 mmol/L LAB CHEMISTRY METHOD 06/03/2025 4:48 PM [facility] Anion Gap 3 3 - 11 LAB CHEMISTRY METHOD 06/03/2025 4:48 PM EST [facility] Blood Venous blood specimen / Unknown Venipuncture / Unknown 06/03/2025 1:42 PM EST 06/03/2025 1:42 PM EST us Bhartah Gonsalez MD LAB BLOOD ORDERABLES Final Resu lt [facility] [address] [place] [address], [place] [phone] * Lipid panel with reflex to direct LDL (02/09/2025 1:53 PM EDT) Cholesterol 172 0 - 200 mg/dL LAB CHEMISTRY METHOD 02/09/2025 5:48 PM EDT [facility] Triglycerides 84 0 - 150 mg/dL LAB CHEMISTRY METHOD 02/09/2025 5:48 PM EDT [facility] HDL 92 >=40 mg/dL LAB CHEMISTRY METHOD 02/09/2025 5:48 PM EDT [facility] LDL Calculated 63 0 - 100 mg/dL LAB CHEMISTRY METHOD 02/09/2025 5:48 PM EDT [facility] VLDL Cholesterol Nikolas 16.8 mg/dL LAB CHEMISTRY METHOD 02/09/2025 5:48 PM EDT [facility] Non HDL Chol. (LDL+VLDL) 80 <145 mg/dL LAB CHEMISTRY METHOD 02/09/2025 5:48 PM EDT [facility] Chol/HDL Ratio 1.9 0.0 - 4.4 LAB CHEMISTRY METHOD 02/09/2025 5:48 PM EDT [facility] Blood Venous blood specimen / Unknown Venipuncture / Unknown 02/09/2025 1:53 PM EDT 02/09/2025 1:53 PM EDT us Teofilo Moreno MD LAB BLOOD ORDERABLES Final Resu lt Performing Organization Address [facility]/ZIP Co de Phone Number [facility] [address] [place] [address], * (ABNORMAL) Microalbumin creatinine urine ratio (02/09/2025 1:53 PM EDT) Creatinine, Urine 80.0 mg/dL LAB CHEMISTRY METHOD 02/09/2025 6:12 PM EDT [facility] Microalb, Ur 113.0(H) 0.0 - 29.0 mg/L LAB CHEMISTRY METHOD 02/09/2025 6:12 PM EDT [facility] Microalb/Crea t Ratio 141(H) <30 mg/g creat LAB CHEMISTRY METHOD 02/09/2025 6:12 PM EDT [facility] Urine Urine specimen obtained by clean catch procedure / Unknown Non-blood Collection / Unknown 02/09/2025 1:53 PM EDT 02/09/2025 1:53 PM EDT Teofilo Moreno MD LAB URINE ORDERABLES Final Resu lt Performing Organization Address [facility] Co de Phone Number [facility] [address] [place] [address], [place] [phone] * Hemoglobin A1c (01/04/2025 4:17 PM EDT) Hemoglobin A1C 6.3 <6.5 % LAB CHEMISTRY METHOD 01/04/2025 9:45 PM EDT [facility] Mean Bld Glu Estim. 134 mg/dL LAB CHEMISTRY METHOD 01/04/2025 9:45 PM EDT [facility] Blood Venous blood specimen / Unknown Venipuncture / Unknown 01/04/2025 4:17 PM EDT 01/04/2025 4:17 PM EDT Gladys WILLIS LAB BLOOD ORDERABLES Final Result [facility] [address] [place] [address], * Diabetic Retinopathy Screening (03/26/2024 9:38 AM EDT) us Historical Provider MD IN CLINIC/BEDSIDE ORDERAB LES Final Result * DXA BONE DENSITY STUDY 1+ SITS AXIAL SKEL (02/08/2022 2:57 PM EDT) Anatomical Region Laterality Modality Bone Densitometr y 06/29/2021 3:28 PM EST Narrative 02/08/2022 4:17 PM EDT BONE DENSITY Lumbar Spine T-score is +1.1 (SD relative to 20-29 y/o adult) Z-score is +3.8 (SD relative to age matched peers) This is normal by criteria defined by the WHO. Left Hip T-score is -2.5 Z-score is -0.2 This is consistent with osteoporosis by criteria defined by the WHO. Comparison exam(s): significant decrease in bone density of lumbar spine when compared to most recent bone density examination Confidence level is +/-95%. Impression: Based on the World Health Organization criteria, Leann Almanzar should be classified as having osteoporosis. The [facility] Department of Internal Medicine recommends using National Osteoporosis Foundation (NOF) guidelines in treatment decisions related to osteoporosis. NOF guidelines suggest considering treatment for postmenopausal women and men aged 50 or older presenting with the following: History of hip or vertebral fracture. T-score less than or equal to -2.5 (DXA) at the femoral neck, total hip, or spine, after appropriate evaluation to exclude secondary causes. Low bone mass (T-score between -1.0 and -2.5 at the femoral neck or spine) AND a 10-year probability of a hip fracture greater than or equal to 3% OR a 10-year probability of a major osteoporosis-related fracture greater than or equal to 20% based on the [place]-adapted WHO algorithm Please note that all treatment decisions require clinical judgment and consideration of individual patient factors, including patient preferences, co-morbidities, previous drug use, risk factors not captured in the FRAX model (e.g., frailty, falls, vitamin D deficiency, increased bone turnover, interval significant decline in bone density) and possible under- or over-estimation of fracture risk by FRAX. Procedure Note Bill Storey MD - 07/17/2022 BONE DENSITY Lumbar Spine T-score is +1.1 (SD relative to 20-29 y/o adult) Z-score is +3.8 (SD relative to age matched peers) This is normal by criteria defined by the WHO. Left Hip T-score is -2.5 Z-score is -0.2 This is consistent with osteoporosis by criteria defined by the WHO. Comparison exam(s): significant decrease in bone density of lumbar spinewhen compared to most recent bone density examination Confidence level is +/-95%. Impression: Based on the World Health Organization criteria, Leann Almanzar should beclassified as having osteoporosis. The [facility] Department of Internal Medicine recommendsusing National Osteoporosis Foundation (NOF) guidelines in treatmentdecisions related to osteoporosis. NOF guidelines suggest consideringtreatment for postmenopausal women and men aged 50 or older presentingwith the following: History of hip or vertebral fracture. T-score less than or equal to -2.5 (DXA) at the femoral neck, total hip,or spine, after appropriate evaluation to exclude secondary causes. Low bone mass (T-score between -1.0 and -2.5 at the femoral neck or spine)AND a 10-year probability of a hip fracture greater than or equal to 3% ORa 10-year probability of a major osteoporosis-related fracture greaterthan or equal to 20% based on the [place]-adapted WHO algorithm Please note that all treatment decisions require clinical judgment andconsideration of individual patient factors, including patientpreferences, co-morbidities, previous drug use, risk factors not capturedin the FRAX model (e.g., frailty, falls, vitamin D deficiency, increasedbone turnover, interval significant decline in bone density) and possibleunder- or over-estimation of fracture risk by FRAX. Teofilo Moreno MD IMG DXA PROCEDURES Final Result from Last 3 Months or Most Recently Relevant to Health Maintenance Insurance [facility] Member Subscriber Plan / Payer (Ef fective 2010-Present) Name:Leann Almanzar Relation to Subscriber:Self Name:Leann Almanzar Payer ID:[id number] Group ID:[id number] Type:Not on file Address: [place] [address] [address] [address] Care Teams Tank Riveter Relationship Specialty Start Date End Date Teofilo Moreno MD [address] [place] [address] [phone] PCP - General Internal Medicine 07/01/24
--- OUTSIDE RECORDS SUMMARY | 2025-06-07 14:27 | XMS_ITS | Encounter Summary ---
Author Organization [facility] Address [address] [place] [address] Care Team Providers Care Milking Machine Technician Name Role Phone Teofilo Moreno MD Primary Care Provider [phone] Encounter Details Date Type Department Care Team (Late Contact Info) Description 07/10/2024 Lab Requisition [facility] - Main Lab [address] [facility] [place] [address] Audi Luke MD [address] [facility] [address] [place], [phone] Essential (primary) hypertension; Anemia, unspecified; Chronic obstructive pulmonary disease, unspecified (CMS/HCC V24, CMS/HCC V28) Social History Tobacco Use Types Packs/Day Years [...] Office Visit Nephrology - [address] [place] [phone] Bhaarth Gonsalez MD [address] [facility] [address] [place] [address] 07/27/2025 2:15 PM EST Office Visit Endocrinology [address] [phone] Gladys Sow PA [address] [place] [address] 08/17/2025 2:30 PM EST Office Visit [facility] [address] [phone] Frantz Martinez PA [address] [place], [place] documented as of this encounter Visit Diagnoses Diagnosis Essential (primary) hypertension Unspecified essential hypertension Anemia, unspecified Chronic obstructive pulmonary disease, unspecified (CMS/HCC V24, CMS/HCC V28) documented in this encounter Care Teams Milking Machine Technician Relationship Specialty Start Date End Date Teofilo Moreno MD [address] [place] [address] PCP - General Internal Medicine 07/01/24 documented as of this encounter
--- OUTSIDE RECORDS SUMMARY | 2025-06-07 14:27 | XMS_ITS | Encounter Summary ---
Author Organization [facility] Address [address] [place] [address] Care Team Providers Care Assistant Casino Shift Manager Name Role Phone Teofilo Moreno MD Primary Care Provider [phone] Encounter Details Date Type Department Care Team (Late Contact Info) Description 07/04/2024 Lab Requisition [facility] - Main Lab [address] [facility] [place] [address] Audi Luke MD 38 [facility] 204 [place], [address] Essential (primary) hypertension; Anemia, unspecified; Chronic [...] Office Visit Nephrology - [address] [place] [phone] Bharath Gonsalez MD 100 [facility] 200 [place] [address] 07/27/2025 2:15 PM EST Office Visit Endocrinology [address] [phone] Gladys Sow PA [address] [place] [address] 08/17/2025 2:30 PM EST Office Visit [facility] [address] [phone] Frantz Martinez PA [address] [place], [place] documented as of this encounter Visit Diagnoses Diagnosis Essential (primary) hypertension Unspecified essential hypertension Anemia, unspecified Chronic obstructive pulmonary disease, unspecified (CMS/HCC V24, CMS/HCC V28) documented in this encounter Care Teams Assistant Casino Shift Manager Relationship Specialty Start Date End Date Teofilo Moreno MD [address] [place] [address] PCP - General Internal Medicine 07/01/24 documented as of this encounter
--- OUTSIDE RECORDS SUMMARY | 2025-06-07 14:27 | XMS_ITS | Clinical Summary ---
Author Organization [facility] Address [address] [place] [address] Care Team Providers Care Bellows Charger Assembler Name Role Phone Unavailable Primary Care Provider [...] Plan of Treatment Not on file Insurance [place]
--- OUTSIDE RECORDS SUMMARY | 2025-06-07 14:27 | XMS_ITS | Data Portability ---
Author Organization [employer], [facility] Address [address] [place] [address] Care Team Providers Care Plate Fitter Name Role Phone [facility] Referring Provider [phone] Assessment Encounter Date Assessment Date Assessment LastModified by Organization Details LastModified Time 01/19/2022 01/19/2022 This 81-year-old female woke up early this morning with vertigo like dizziness sometimes triggered by head movement with no other neurological symptoms. I suspect that she might have BPV. Her symptoms were improving so I suggested that she monitor her symptoms and if they get worse, she will need more acute medical attention. The patient agreed with this plan. She will follow up with her PCP. [email or web address] Not available 01/19/2022 15:12:38 05/31/2023 05/31/2023 I provided real -time medical direction via phone for this encounter, and was available for additional phone based assistance as needed. I have reviewed and agree with the Assessment and Plan as documented by the [employer]. Patient given the opportunity to ask questions. As per above, patient with recurrent upper respiratory symptoms. Has recently been seen emergency department and had a prednisone burst of 50 mg for 5 days. She is completing that course. She is not using her nebulizers except for approximately once a day. She has a productive cough. She has no fever elevation are temperature elevation. Therein no signs or symptoms of toxicity on exam. There are no red flag signs or symptoms on exam. She is speaking in full sentences. Assessment: Recurrent upper respiratory symptoms suggestive of mixed picture of COPD asthma plan: Already on a prednisone taper, will have her use nebulizers q.4 hours p.r.n. and q.6 hours scheduled for now We discussed the diagnostic uncertainty of home visits and the risk associated with this. In this case, the patient and I felt this to be an acceptable and reasonable amount of risk given the benefit of avoiding an ED visit. We discussed the need to seek care urgently/emergentl y in the setting of any new or worsening serious symptoms, particularly fever chills lightheadedness altered mental status [facility] Not available 05/31/2023 21:11:54 Plan of Treatment Reminders Order Date Submit Date Provider Last Modified By Organization Details Last Modified Time Details Appointments None recorded. Lab rapid SARS CoV 2 Ag, QL IA, respiratory specimen [address], [address] [place] [address] 3 21:11:56 rapid flu (A+B) [address], [address] [place] [address] 21:11:55 Referral None recorded. Procedures None recorded. Surgeries None recorded. Imaging None recorded. Medication Orders None recorded. Patient TargetsNo targets recorded. Patient InstructionsNo instructions recorded. Reason for Referral None Reported. Results Created Date Observation Date Name Description Value Unit Range Abnormal Flag Note LastModifiedBy Organization Detail LastModifiedTime 05/31/2005/31/2023 rapid flu (A+B) Flu negati ve Not Available [facility] ed [address] [place] [address], [address] [place] [address] 05/31/2023 21:09:13 05/31/20 23 05/31/2023 rapid SARS CoV 2 Ag, QL IA, respi rator y speci men rapid SARS CoV 2 Ag, QL IA, respiratory specimen negati ve Not Available [facility] ed [address] [place] [address], [address] [place] [address] 05/31/2023 21:09:10 Result Notes None recorded. Medical Equipment None Reported. Allergies Allergen ID Allergen Name Allergen Category Reaction Reaction Severity Criticality Documentation Date Start Date Code Code System Note Provider Name and Address Organization Details Recorded Time 7994 latex environme nt,medica tion Not available Not available Not available 05/26/2024 01694 91 RxNorm Not Available [facility] - production 03:41:14 Medications Name Sig Start Date Stop Date Status Note LastModified by Organization Details LastModified Time comfrt touch pad alc prep active Not Available Not Available Not Available comfrt touch pad alc prep eaches USE DIRECTED THREE TIMES DAILY TO CLEAN AREA PRIOR TO TESTING active Not Available Not Available No t Available comfort tch mis lanc 30g eaches USE DIRECTED TO TEST BLOOD SUGAR THREE TIMES DAILY active Not Available Not Available Not Available hydralazine 10 mg tablet TOME LIZ TABLETA DOS VECES AL D A active Not Available Not Available No t Available nystatin 100,000 unit/mL oral suspension TAKE 4 ML BY MOUTH 4 TIMES DAILY FOR 10 DAYS. SWISH AND SWALLOW active Not Available Not Available Not Available albuterol sulfate 2.5 mg/3 mL (0.083 %) solution for nebulization USE 2.5 MG (3 ML) INHALATION EVERY 4-6 HOURS 30 DAYS NEEDED FOR SHORTNESS OF BREATH OR WHEEZING active Not Available Not Available Not Available cetirizine 10 mg tablet TOME LIZ TABLETA TODOS LOS D active Not Available Not Available No t Available Lidocaine Viscous 2 % mucosal solution active Not Available Not Available Not Available glipizide 10 mg tablet TOME LIZ TABLETA DOS VECES AL D A CON LAS COMIDAS active Not Available Not Available No t Available prednisone 5 mg tablet TOME LIZ TABLETA TODOS LOS D active Not Available Not Available No t Available chlorthalido ne 25 mg tablet active Not Available Not Available Not Available aspirin 81 mg tablet,delay ed release TOME LIZ TABLETA TODOS LOS D active Not Available Not Available No t Available magnesium oxide 400 mg (241.3 mg magnesium) tablet TOME LIZ TABLETA DOS VECES AL D A active Not Available Not Available No t Available methotrexate sodium 2.5 mg tablet TAKE 8 TABLETS BY MOUTH ONCE WEEKLY. LABS DUE EVERY OTHER MONTH active Not Available Not Available No t Available ferrous sulfate 325 mg (65 mg iron) tablet TOME LZI TABLETA DOS VECES AL D A active Not Available Not Available No t Available metformin 1,000 mg tablet TOME LIZ TABLETA DOS VECES AL D A CON LAS COMIDAS active Not Available Not Available No t Available verapamil ER (PM) 300 mg capsule 24hr pellet CT,ext.relea se TOME LIZ C PSULA TODOS LOS D AL ACOSTARSE active Not Available Not Available No t Available omeprazole 20 mg capsule,bart yed release TOME LIZ C PSULA TODOS LOS D active Not Available Not Available No t Available bumetanide 1 mg tablet TAKE 1 TABLET BY MOUTH EVERY 48 HOURS FOR 360 DAYS. active Not Available Not Available No t Available folic acid 1 mg tablet TOME LIZ TABLETA TODOS LOS D active Not Available Not Available No t Available pravastatin 20 mg tablet TOME LIZ TABLETA TODOS LOS D active Not Available Not Available No t Available albuterol sulfate HFA 90 mcg/actuatio n aerosol inhaler active Not Available Not Available Not Available ferrous sulfate 325 mg (65 mg iron) tablet,delay ed release active Not Available Not Available N ot Available cyclobenzapr ine 5 mg tablet TAKE 1 TABLET BY MOUTH 3 TIMES DAILY NEEDED FOR MUSCLE SPASMS FOR UP TO 10 DAYS. active Not Available Not Available No t Available FreeStyle Lite Strips USE TO TEST THREE TIMES A DAY active Not Available Not Available No t Available colchicine 0.6 mg capsule active Not Available Not Available Not Available Pure Comfort Safety Lancets 30 gauge USE TO CHECK BLOOD SUGAR THREE TIMES DAILY active Not Available Not Available Not Available Vitals Date Recorded Heart rate Respiratory rate Oxygen saturation Oxygen saturation in Arterial blood by Pulse oximetry Body temperature Systolic And Diastolic Provider Name and Address Organization Details Last Updated DateTime 3 62 /min 16 /min 95 % 95 % 98.2 [degF] 138/74 mm[Hg] Not Available [employer] 3 17:13:23 Date Recorded Body weight Respiratory rate Body height Oxygen saturation Oxygen saturation in Arterial blood by Pulse oximetry Heart rate Body temperature Systolic And Diastolic Provider Name and Address Organization Details Last Updated DateTime 2 09701.7 6 g 18 /min 144.78 cm 95 % 95 % 58 /min 98 [degF] 160/77 mm[Hg] Not Available [employer] 2 15:07:37 Date Recorded Respiratory rate Heart rate Body temperature Body height Oxygen saturation Oxygen saturation in Arterial blood by Pulse oximetry Body weight Systolic And Diastolic Provider Name and Address Organization Details Last Updated DateTime 3 18 /min 79 /min 98.5 [degF] 149.86 cm 94 % 94 % 14058.6 96 g 118/69 mm[Hg] Not Available [employer] 3 21:08:44 Social History None recorded. Functional Status None recorded. Mental Status None recorded. Family History Nothing Reported. Medical History No medical history recorded. Gynecological HistoryNo gynecological history recorded. Obstetrics History GPAL:G 0 P 0 0 0 0 Past Encounters Encounter ID Performer Location Encounter Start Date Encounter Closed Date Diagnosis/Indication Diagnosis SNOMED-CT Code Diagnosis ICD10 Code Diagnosis IMO Codes Diagnosis Note [id number] Antelmo Otoole MD [facility] [address] [place] [address] [id number] 01/19/2022 15:07:34 01/19/2022 15:13:29 [id number] Gal Bashir MD [facility] [address] [place] [address] [id number] 01/11/2023 17:13:22 01/12/2023 23:09:33 [id number] Lissa Roman MD [facility] [address] [place] [address] [id number] 05/31/2023 21:08:41 06/04/2023 10:48:10 Upper respiratory infection 44722147 J06.9 Health Concerns Section Related Observation LastModified by Organization Detai ls LastModified Time None Recorded Concern Status LastModified by Organization Details LastModified Time None Recorded Advance Directives Directive None Recorded Payers Insurance Date Sequence Insurance Name Policy Number Policy Merida Covered Member ID Merida Member ID Guarantor Name 11/27/2024 1 [facility] - DOS PRIOR TO 2022 - DUAL ELIGIBLE (MEDICARE REPLACEMENT/AD VANTAGE - HMO) Leann Almanzar [id number] Leann Almanzar 11/27/2024 1 [facility] - DOS ON OR AFTER 2022 - DUAL ELIGIBLE - ALF OPTIONS AND ONE CARE (MEDICARE REPLACEMENT/AD VANTAGE - HMO) Leann Jenelle [id number] Leann Almanzar Notes Date Note Type Note Provider Name and Address Organization Details Recorded Time 01/19/2022 text/html ROS as noted in the HPI HPI: Call transferred to [facility] from [facility]. Mbr's granddaughter/AGRICULTURAL PRODUCE WASHER, Rafaela Ward on the phone. Reports member with x2 days of dizziness and feeling like she is going to faint. Denies member experiencing in the past. Mbr has not been evaluated for these symptoms. Reports at 3:30am member woke up with dizziness, felt like she was going to faint. Mbr does not recall if she lost consciousness. Reports mbr checked BG at time and was 97. Reports mbr has been eating and drinking as normal. Reports current dizziness at time of call though has improved, denies current pre-syncope. Reports worsening of sx from sitting to standing. Denies CP/SOB, numbness/tingling, or change in mental status. Caller reports mbr with hx of anemia. Advised referral for inst[facility] visit would be placed. Advised to call [facility]U back if worsening s/sx. Allergies: vasotec, norvasc, pineapple, latex PMH including rheumatoid arthritis, DM2, asthma, HTN, osteopenia, vitamin B12, Vitamin D deficiency, chronic anemia, GERD, hypocholesteremia, leukocytosis ..................... ..................... ..................... ..................... ..................... ..................... ............... [facility] Nursing Assessment: Comments: CRC RN did not require any additional information to process this visit ..................... ..................... ..................... ..................... ..................... ..................... ............... [employer] Note: Sent to a call for a pt complaining of dizziness. [facility] arrives on scene, contact made with pt and family in residence. Pt is alert and oriented. Airway is patent. Pt complains of dizziness starting this morning at approx 3:30am. Pt complains of dizziness when rolling over, moving head quickly and going from sitting to standing position. Pt has no history of vertigo. Pt denies headache, vision changes, cp, sob, n/v/d, abd pain or loc. Pt is able to eat and drink without issue. Pt has history of anemia, but hemoglobin levels are stable, pt is not prescribed iron. (Sitting) BP:160/77, P:58, RR:18, SpO2:95% RA, T:98.0; Lung sounds: clear bilaterally; (Standing) BP:158/69, P:61; [facility] advises pt to move slowly, rest and monitor symptoms to see if vertigo gets worse. If symptoms persist or get worse follow up with PCP or seek medical attention. Red flags discussed. Pt and family have no further questions. ..................... ..................... ..................... ..................... ..................... ..................... ............... Disposition: Fulfilled Antelmo Otoole MD [address] [place] [address],[address], [place], [address], [employer] 01/19/2022 15:13:27 01/11/2023 text/html ROS as noted in the HPI [facility] Nursing Assessment: Reason For Request: Nursing reporting pt switched weekly Diabetic Trulicity to ozempic. last 5 to 6 nights sugar meter has been reading high. PCP wants to send her out to ED but pt is refusing, states she feels fine and does not want to wait for hours in the ED. Chief Complaints: Diabetes Related PMH: COPD/Asthma, Diabetes, Hypertension Allergies: Latex Comments: Member [facility] calling in to place a referral. Member who has been taking Ozempic, For the last 5-6 days members glucometer is reading 200's in the morning, but Hi in the evening and at HS, per [facility] member takes Metformin as she needs it and took one 20 min ago. Member feels fine, VSS, no n/v, no increased thirst or urination. PCP office recommended ED, member refusing but agreeable to an [facility] visit. ..................... ..................... ..................... ..................... ..................... ..................... ............... [employer] Note From Gustavo Alvarado: Dispatched to the call address for Member SAMREENA calling in to place a referral. Member who has been taking Ozempic, For the last 5-6 days members glucometer is reading 200's in the morning, but Hi in the evening and at HS, per [facility] member takes Metformin as she needs it and took one 20 min ago. Member feels fine, VSS, no n/v, no increased thirst or urination. PCP office recommended ED, member refusing but agreeable to an inst[facility] visit . Pt confirms the dispatch reasoning. She advises that she has no symptoms and takes no insulin. She denies any cold/flu like symptoms. Pt was assessed. Pt found sitting in living room chair, CAOx4, airway open and patent, breathing non labored, able to speak in full sentences, -JVD, -HEENT, skin PWD with good turgor, pupils LAYO, abd soft non tender/distended, +CMSx4, blood glucose 576. C consulted. Pt was advised that even though she is Asymptomatic that hyperglycemia still carries many health risks. Pt was advised to be seen in the ED. Pt agreed to go with daughter. Pts daughter agreed to take Pt to ED. ALL times are approx. ..................... ..................... ..................... ..................... ..................... ..................... ............... Disposition: Fulfilled Gal Bashir MD [address] [facility],[address], [place], [address], [employer] 08/07/2023 13:58:00 05/31/2023 text/html CRC Nursing Assessment: Reason For Request: URI Chief Complaints: Cough, Weakness/Lethargy, Shortness of Breath/Dyspnea PMH: COPD/Asthma, Diabetes, Hypertension Allergies: Latex Comments: Members [facility] calling in to place a referral, member identified via /name. Member who has had a cough, congestion and generally feeling unwell for 3 weeks. Member takes a maintenance dose of Prednisone for her arthritis, however, PCP gave an extra 50mg x4 day, but member had no improvement. [facility]NA spoke to PCP, they will not prescribe an abx without seeing her, and can not see her for 2 weeks. Member with productive cough with yellow phlegm, sob and dizziness with coughing spells, desats to 91-92 and has wheezes in all lung eisenberg. Member denies fever/chills, no n/v/d, her eyes are glossy, red and puffy. Recently taken off her diuretic due to low BP, but denies any LE edema. Member would like to be evaluated. ..................... ..................... ..................... ..................... ..................... ..................... ............... [employer] Note From eLda Lal: Sent to a call for a pt complaining of productive cough x 3 weeks. [facility] arrives on scene, pt is alert and oriented, airway is patent. Pt primarily speaks Greek, and family member serves as release of information specialist. Pt complains of productive cough with yellow phlegm and intermittent sob x 3 weeks. Pt was evaluated at ED last Saturday, had a chest x-ray/ekg, and was prescribed prednisone 50mg x 4 days. Pt has a nebulizer, but has only been using it 1-2 times daily. Pt denies taylor, dizziness, sore throat, cp, n/v/d, abd pain, fever, or loc. BP:118/69, P:79, RR:18, SpO2:94% RA, T:98.5; Head: unremarkable; Lung sounds: wheezing/rhonchi bilaterally; Abdomen: soft, non-tender, no distention; Back: unremarkable; Extremities: unremarkable; Skin: pink, warm, dry; Duo neb administered, pt reports slight improvement. Lung sounds: decreased wheezing/rhonchi; [facility] consulted and pt is advised to use nebulizer every 4-6hrs while symptoms persist. Red flags discussed. Pt/family have no further questions. ..................... ..................... ..................... ..................... ..................... ..................... ............... Disposition: Fulfilled Lissa oRman MD [address] [facility],[address], [place], [address], [employer] 05/31/2023 21:12:31 OBGyn Episode No OBEpisode recorded.
--- OUTSIDE RECORDS SUMMARY | 2025-06-07 14:27 | XMS_ITS | Encounter Summary ---
Author Organization [facility] Address [address] [place] [address] Care Team Providers Care Knitted Goods Shaper Name Role Phone Teofilo Moreno MD Primary Care Provider [phone] Encounter Details Date Type Department Care Team (Late st Contact Info) Description 06/16/2024 Lab Requisition [facility] - Main Lab [address] [facility] [place] [address] Audi Luke MD [address] [place] [address], [phone] Cold autoimmune hemolytic anemia (CMS/HCC V24, CMS/HCC V28); Hyperkalemia; Heart failure, unspecified (CMS/HCC V24, CMS/HCC V28); Chronic obstructive pulmonary disease, unspecified (CMS/HCC V24, CMS/HCC V28); Chronic kidney disease, unspecified; Type 2 diabetes mellitus without complications (CMS/HCC V24, CMS/HCC V28); Essential (primary) hypertension Social History Tobacco Use Types Packs/Day Years [...] 2:15 PM EST Office Visit [facility] [address] [place] [address] Bharath Gonsalez MD [address] [place] [address] 07/27/2025 2:15 PM EST Office Visit Endocrinology [address] [phone] Gladys Sow PA [address] [place] [address] 08/17/2025 2:30 PM EST Office Visit [facility] - [address] [phone] Frantz Martinez PA [address] [place] [address] documented as of this encounter Procedures Procedure Name Priority Date/Time Associated Diagnosis Comments CBC WITH AUTO DIFFERENTIAL Routine 06/16/2024 7:12 AM EST Cold autoimmune hemolytic anemia (CMS/HCC) Hyperkalemia Heart failure, unspecified (CMS/HCC) Chronic obstructive pulmonary disease, unspecified (CMS/HCC) Chronic kidney disease, unspecified Type 2 diabetes mellitus without complications (CMS/HCC) Essential (primary) hypertension CBC AND DIFFERENTIAL Routine 06/16/2024 7:12 AM EST Cold autoimmune hemolytic anemia (CMS/HCC) Hyperkalemia Heart failure, unspecified (CMS/HCC) Chronic obstructive pulmonary disease, unspecified (CMS/HCC) Chronic kidney disease, unspecified Type 2 diabetes mellitus without complications (CMS/HCC) Essential (primary) hypertension C-REACTIVE PROTEIN Routine 06/16/2024 7: 12 AM EST Cold autoimmune hemolytic anemia (CMS/HCC) Hyperkalemia Heart failure, unspecified (CMS/HCC) Chronic obstructive pulmonary disease, unspecified (CMS/HCC) Chronic kidney disease, unspecified Type 2 diabetes mellitus without complications (CMS/HCC) Essential (primary) hypertension HEMOGLOBIN A1C Routine 06/16/2024 7:12 AM EST Cold autoimmune hemolytic anemia (CMS/HCC) Hyperkalemia Heart failure, unspecified (CMS/HCC) Chronic obstructive pulmonary disease, unspecified (CMS/HCC) Chronic kidney disease, unspecified Type 2 diabetes mellitus without complications (CMS/HCC) Essential (primary) hypertension COMPREHENSIVE METABOLIC PANEL Routine 06/16/2024 7:12 AM EST Cold autoimmune hemolytic anemia (CMS/HCC) Hyperkalemia Heart failure, unspecified (CMS/HCC) Chronic obstructive pulmonary disease, unspecified (CMS/HCC) Chronic kidney disease, unspecified Type 2 diabetes mellitus without complications (CMS/HCC) Essential (primary) hypertension documented in this encounter Results * Hemoglobin A1c (06/16/2024 7:12 AM EST) Hemoglobin A1C 6.3 <6.5 % LAB CHEMISTRY METHOD 06/16/2024 9:14 PM EST [facility] Mean Bld Glu Estim. 134 mg/dL LAB CHEMISTRY METHOD 06/16/2024 9:14 PM EST [facility] Blood Venous blood specimen / Unknown Venipuncture / Unknown 06/16/2024 7:12 AM EST 06/16/2024 9:01 AM EST us Audi Luke MD LAB BLOOD ORDERABLES Final Resul t [facility] [address] [place] [address], * (ABNORMAL) CBC auto differential (06/16/2024 7:12 AM EST) Pathologist [facility] WBC 20.9(H) 4.8 - 10.8 K/mcL LAB HEMETOLOGY METHOD 06/16/2024 10:38 AM EST [facility] RBC 4.20 3.80 - 4.80 M/mcL LAB HEMETOLOGY METHOD 06/16/2024 10:38 AM [facility] Hemoglobin 10.5(L) 11.5 - 16.0 g/dL LAB HEMETOLOGY METHOD 06/16/2024 10:38 AM [facility] Hematocrit 35.7 35.0 - 47.0 % LAB HEMETOLOGY METHOD 06/16/2024 10:38 AM [facility] MCV 84.4 79.0 - 98.0 FL LAB HEMETOLOGY METHOD 06/16/2024 10:38 AM [facility] MCH 24.8(L) 27.0 - 32.0 pcg LAB HEMETOLOGY METHOD 06/16/2024 10:38 AM [facility] MCHC 29.4(L) 32.0 - 37.0 g/dL LAB HEMETOLOGY METHOD 06/16/2024 10:38 AM [facility] RDW 21.1(H) 11.0 - 15.0 % LAB HEMETOLOGY METHOD 06/16/2024 10:38 AM [facility] Platelets 246 130 - 400 K/mcL LAB HEMETOLOGY METHOD 06/16/2024 10:38 AM [facility] MPV 11.9(H) 7.0 - 11.0 FL LAB HEMETOLOGY METHOD 06/16/2024 10:38 AM [facility] NRBC 0.0 <1.0 % LAB HEMETOLOGY METHOD 06/16/2024 10:38 AM [facility] NRBC Absolute 0.00 <0.10 K/mcL LAB HEMETOLOGY METHOD 06/16/2024 10:38 AM [facility] Neutrophils Relative 82.8 % LAB HEMETOLOGY METHOD 06/16/2024 10:38 AM [facility] Lymphocytes Relative 8.8 % LAB HEMETOLOGY METHOD 06/16/2024 10:38 AM [facility] Monocytes Relative 6.0 % LAB HEMETOLOGY METHOD 06/16/2024 10:38 AM EST [facility] Eosinophils Relative 0.9 % LAB HEMETOLOGY METHOD 06/16/2024 10:38 AM [facility] Basophils Relative 0.1 % LAB HEMETOLOGY METHOD 06/16/2024 10:38 AM [facility] Immature Granulocytes Relative 1.4 % LAB HEMETOLOGY METHOD 06/16/2024 10:38 AM [facility] Neutrophils Absolute 17.31(H) 1.50 - 7.00 K/mcL LAB HEMETOLOGY METHOD 06/16/2024 10:38 AM [facility] Lymphocytes Absolute 1.83 1.00 - 5.00 K/mcL LAB HEMETOLOGY METHOD 06/16/2024 10:38 AM [facility] Monocytes Absolute 1.25(H) 0.20 - 1.00 K/mcL LAB HEMETOLOGY METHOD 06/16/2024 10:38 AM [facility] Eosinophils Absolute 0.19 0.00 - 0.50 K/mcL LAB HEMETOLOGY METHOD 06/16/2024 10:38 AM [facility] Basophils Absolute 0.03 0.00 - 0.20 K/mcL LAB HEMETOLOGY METHOD 06/16/2024 10:38 AM [facility] Immature Granulocytes Absolute 0.29(H) 0.00 - 0.03 K/mcL LAB HEMETOLOGY METHOD 06/16/2024 10:38 AM [facility] Blood Venous blood specimen / Unknown Venipuncture / Unknown 06/16/2024 7:12 AM EST 06/16/2024 9:01 AM EST us Audi Luke MD LAB BLOOD ORDERABLES Final Resul t [facility] [address] [place] [address], [place] [phone] * (ABNORMAL) C-reactive protein (06/16/2024 7:12 AM EST) [facility] C-Reactive Protein 0.96(H) <=0.50 mg/dL LAB CHEMISTRY METHOD 06/16/2024 11:19 AM EST [facility] Blood Venous blood specimen / Unknown Venipuncture / Unknown 06/16/2024 7:12 AM EST 06/16/2024 9:01 AM EST us Audi Luke MD LAB BLOOD ORDERABLES Final Resul t [facility] [address] [place] [address], [place] [phone] * (ABNORMAL) Comprehensive metabolic panel (06/16/2024 7:12 AM EST) [facility] Sodium 141 133 - 145 mmol/L LAB CHEMISTRY METHOD 06/16/2024 11:19 AM [facility] Potassium 4.3 3.5 - 5.5 mmol/L LAB CHEMISTRY METHOD 06/16/2024 11:19 AM [facility] Chloride 103 96 - 110 mmol/L LAB CHEMISTRY METHOD 06/16/2024 11:19 AM [facility] CO2 31 21 - 32 mmol/L LAB CHEMISTRY METHOD 06/16/2024 11:19 AM [facility] Anion Gap 7 3 - 11 LAB CHEMISTRY METHOD 06/16/2024 11:19 AM [facility] Glucose 56(L) 70 - 100 mg/dL LAB CHEMISTRY METHOD 06/16/2024 11:19 AM [facility] BUN 40(H) 5 - 25 mg/dL LAB CHEMISTRY METHOD 06/16/2024 11:19 AM [facility] Creatinine 1.46(H) 0.50 - 1.10 mg/dL LAB CHEMISTRY METHOD 06/16/2024 11:19 AM [facility] eGFR 36(L) >=60 mL/min/1. 73m2 LAB CHEMISTRY METHOD 06/16/2024 11:19 AM [facility] Comment:Calculation based on the Chronic Kidney Disease Epidemiology Collaboration (CKD-EPI) equation refit without adjustment for race. BUN/Creatinine Ratio 27.4 LAB CHEMISTRY METHOD 06/16/2024 11:19 AM [facility] Calcium 10.0 8.5 - 10.5 mg/dL LAB CHEMISTRY METHOD 06/16/2024 11:19 AM [facility] AST (SGOT) 22 10 - 42 unit/L LAB CHEMISTRY METHOD 06/16/2024 11:19 AM [facility] ALT (SGPT) 26 10 - 60 unit/L LAB CHEMISTRY METHOD 06/16/2024 11:19 AM [facility] Alkaline Phosphatase 70 42 - 121 unit/L LAB CHEMISTRY METHOD 06/16/2024 11:19 AM [facility] Total Protein 5.6(L) 6.0 - 8.0 g/dL LAB CHEMISTRY METHOD 06/16/2024 11:19 AM [facility] Albumin 2.9(L) 3.2 - 5.0 g/dL LAB CHEMISTRY METHOD 06/16/2024 11:19 AM [facility] Total Bilirubin 0.5 0.0 - 1.4 mg/dL LAB CHEMISTRY METHOD 06/16/2024 11:19 AM [facility] Blood Venous blood specimen / Unknown Venipuncture / Unknown 06/16/2024 7:12 AM EST 06/16/2024 9:01 AM EST us Audi Luke MD LAB BLOOD ORDERABLES Final Resul t [facility] [address] [place] [address], [place] [phone] documented in this encounter Visit Diagnoses Diagnosis Cold autoimmune hemolytic anemia ([facility] [place], [facility] [place]28[place] Autoimmune hemolytic anemias Hyperkalemia Hyperpotassemia Heart failure, unspecified ([facility] [place]24, [facility] [place] V28) Heart failure, unspecified Chronic obstructive pulmonary disease, unspecified ([facility] [place]24, [facility] V28) Chronic kidney disease, unspecified Type 2 diabetes mellitus without complications ([facility] [place]24, [facility] [place] V28) Essential (primary) hypertension Unspecified essential hypertension documented in this encounter Care Teams Knitted Goods Shaper Relationship Specialty Start Date End Date Teofilo Moreno MD [address] [place] [phone] PCP - General Internal Medicine 07/01/24 documented as of this encounter
--- OUTSIDE RECORDS SUMMARY | 2025-06-07 14:27 | XMS_ITS | Encounter Summary ---
Author Organization [facility] Address [address] [place] [address] Care Team Providers Care Gravel Inspector Name Role Phone Teofilo Moreno MD Primary Care Provider Encounter Details Date Type Department Care Team (Late Contact Info) Description 06/19/2024 Lab Requisition [facility] - Main Lab [address] [facility] [place] [address] Audi Luke MD [address] [facility] [address] [place], [address] Essential (primary) hypertension; Anemia, unspecified; Chronic [...] Office Visit Nephrology - [facility] [address] [place] [phone] Bharath Gonsalez MD [address] [facility] [address] [place] [address] 07/27/2025 2:15 PM EST Office Visit Endocrinology [address] [phone] Gladys Sow PA [address] [place] [address] 08/17/2025 2:30 PM EST Office Visit [facility] [address] [phone] Frantz Martinez PA [address] [place], [place] documented as of this encounter Procedures Procedure Name Priority Date/Time Associated Diagnosis Comments COMPLETE BLOOD COUNT Routine 06/22/2024 7:03 AM EST Essential (primary) hypertension Anemia, unspecified Chronic obstructive pulmonary disease, unspecified (CMS/HCC) MAGNESIUM Routine 06/22/2024 7:03 AM EST Essential (primary) hypertension Anemia, unspecified Chronic obstructive pulmonary disease, unspecified (CMS/HCC) COMPREHENSIVE METABOLIC PANEL Routine 06/22/2024 7:03 AM EST Essential (primary) hypertension Anemia, unspecified Chronic obstructive pulmonary disease, unspecified (CMS/HCC) documented in this encounter Results * (ABNORMAL) Magnesium (06/22/2024 7:03 AM EST) Magnesium 2.9(H) 1.9 - 2.6 mg/dL LAB CHEMISTRY METHOD 06/22/2024 12:08 PM EST [facility] Blood Venous blood specimen / Unknown Venipuncture / Unknown 06/22/2024 7:03 AM EST 06/22/2024 10:15 AM EST us Audi Luke MD LAB BLOOD ORDERABLES Final Resul t [facility] [address] [place] [address], [place] [phone] * (ABNORMAL) Comprehensive metabolic panel (06/22/2024 7:03 AM EST) Sodium 143 133 - 145 mmol/L LAB CHEMISTRY METHOD 06/22/2024 12:08 PM [facility] Potassium 4.0 3.5 - 5.5 mmol/L LAB CHEMISTRY METHOD 06/22/2024 12:08 PM [facility] Chloride 105 96 - 110 mmol/L LAB CHEMISTRY METHOD 06/22/2024 12:08 PM [facility] CO2 32 21 - 32 mmol/L LAB CHEMISTRY METHOD 06/22/2024 12:08 PM [facility] Anion Gap 6 3 - 11 LAB CHEMISTRY METHOD 06/22/2024 12:08 PM [facility] Glucose 70 70 - 100 mg/dL LAB CHEMISTRY METHOD 06/22/2024 12:08 PM [facility] BUN 41(H) 5 - 25 mg/dL LAB CHEMISTRY METHOD 06/22/2024 12:08 PM [facility] Creatinine 1.78(H) 0.50 - 1.10 mg/dL LAB CHEMISTRY METHOD 06/22/2024 12:08 PM [facility] eGFR 28(L) >=60 mL/min/1. 73m2 LAB CHEMISTRY METHOD 06/22/2024 12:08 PM [facility] Comment:Calculation based on the Chronic Kidney Disease Epidemiology Collaboration (CKD-EPI) equation refit without adjustment for race. BUN/Creatinine Ratio 23.0 LAB CHEMISTRY METHOD 06/22/2024 12:08 PM [facility] Calcium 9.4 8.5 - 10.5 mg/dL LAB CHEMISTRY METHOD 06/22/2024 12:08 PM [facility] AST (SGOT) 23 10 - 42 unit/L LAB CHEMISTRY METHOD 06/22/2024 12:08 PM [facility] ALT (SGPT) 26 10 - 60 unit/L LAB CHEMISTRY METHOD 06/22/2024 12:08 PM [facility] Alkaline Phosphatase 71 42 - 121 unit/L LAB CHEMISTRY METHOD 06/22/2024 12:08 PM [facility] Total Protein 5.4(L) 6.0 - 8.0 g/dL LAB CHEMISTRY METHOD 06/22/2024 12:08 PM [facility] Albumin 2.8(L) 3.2 - 5.0 g/dL LAB CHEMISTRY METHOD 06/22/2024 12:08 PM [facility] Total Bilirubin 0.6 0.0 - 1.4 mg/dL LAB CHEMISTRY METHOD 06/22/2024 12:08 PM [facility] Blood Venous blood specimen / Unknown Venipuncture / Unknown 06/22/2024 7:03 AM EST 06/22/2024 10:15 AM EST us Audi Luke MD LAB BLOOD ORDERABLES Final Resul t [facility] [address] [place] [address], [place] [phone] * (ABNORMAL) Complete blood count (06/22/2024 7:03 AM EST) WBC 15.2(H) 4.8 - 10.8 K/[facility] LAB HEMETOLOGY METHOD 06/22/2024 10:39 AM EST [facility] RBC 3.90 3.80 - 4.80 M/[facility] LAB HEMETOLOGY METHOD 06/22/2024 10:39 AM [facility] Hemoglobin 9.7(L) 11.5 - 16.0 g/dL LAB HEMETOLOGY METHOD 06/22/2024 10:39 AM [facility] Hematocrit 33.2(L) 35.0 - 47.0 % LAB HEMETOLOGY METHOD 06/22/2024 10:39 AM [facility] MCV 84.5 79.0 - 98.0 FL LAB HEMETOLOGY METHOD 06/22/2024 10:39 AM [facility] MCH 24.7(L) 27.0 - 32.0 pcg LAB HEMETOLOGY METHOD 06/22/2024 10:39 AM EST [facility] MCHC 29.2(L) 32.0 - 37.0 g/dL LAB HEMETOLOGY METHOD 06/22/2024 10:39 AM [facility] RDW 21.4(H) 11.0 - 15.0 % LAB HEMETOLOGY METHOD 06/22/2024 10:39 AM [facility] Platelets 303 130 - 400 K/mcL LAB HEMETOLOGY METHOD 06/22/2024 10:39 AM EST [facility] MPV 11.5(H) 7.0 - 11.0 FL LAB HEMETOLOGY METHOD 06/22/2024 10:39 AM [facility] NRBC 0.0 <1.0 % LAB HEMETOLOGY METHOD 06/22/2024 10:39 AM [facility] NRBC Absolute 0.00 <0.10 K/mcL LAB HEMETOLOGY METHOD 06/22/2024 10:39 AM [facility] Blood Venous blood specimen / Unknown Venipuncture / Unknown 06/22/2024 7:03 AM EST 06/22/2024 10:05 AM EST us Audi Luke MD LAB BLOOD ORDERABLES Final Resul t [facility] [address] [place] [address], documented in this encounter Visit Diagnoses Diagnosis Essential (primary) hypertension Unspecified essential hypertension Anemia, unspecified Chronic obstructive pulmonary disease, unspecified (CMS/[facility] V24, CMS/[facility] V28) documented in this encounter Care Teams Gravel Inspector Relationship Specialty Start Date End Date Teofilo Moreno MD [address] [place] [phone] PCP - General Internal Medicine 07/01/24 documented as of this encounter
--- OUTSIDE RECORDS SUMMARY | 2025-06-07 14:27 | XMS_ITS | Encounter Summary ---
Author Organization [facility] Address [address] [place] [address] Care Team Providers Care Account Planner Name Role Phone Teofilo Moreno MD Primary Care Provider Encounter Details Date Type Department Care Team (Late Contact Info) Description 12/11/2024 Billing Patient Not Present Adult Medicine [address] [phone] Teofilo Moreno MD [address] [place] [address] Social History Tobacco Use Types Packs/Day Years [...] Office Visit Nephrology - [facility] [address] [place] [phone] Bharath Gonsalez MD [address] [place] [address] 07/27/2025 2:15 PM EST Office Visit Endocrinology - [address] [phone] Gladys Sow PA [address] [place] [address] 08/17/2025 2:30 PM EST Office Visit [facility] - [address] [phone] Frantz Martinez PA [address] [place], [place] documented as of this encounter Visit Diagnoses Not on filedocumented in this encounter Care Teams Account Planner Relationship Specialty Start Date End Date Teofilo Moreno MD [address] [place] [address] PCP - General Internal Medicine 07/01/24 documented as of this encounter
--- OUTSIDE RECORDS SUMMARY | 2025-06-07 14:27 | XMS_ITS | Data Portability ---
Author Organization [facility], Main Office Address [address] [place] [address] Care Team Providers Care Purchasing Intern Name Role Phone WAGNER RAMIREZ - 3RD FLOOR OTHER KENISHA PARSONS Primary Care Provider Assessment No assessment recorded. Plan of Treatment [...] By Organization Details Last Modified Time 06/16/2024 [id number] medicines to avoid with kidney disease: care instructions [email or web address] Not available 06/16/2024 12:15:35 Reason for Referral None Reported. Problems Name Problem SNOMED Code Status Onset Date Resolution Date Notes Provider Name and Address Organization Details Recorded Time Asthenia 98793993 Active 2023 MARIBEL BLANCHARD NP [address], [address], [place], [address], [facility] 4 11:18:54 Chronic obstructiv e pulmonary disease 85904015 Active 2023 MARIBEL BLANCHARD NP [address], [address], [place], [address], [facility] 4 11:19:06 Asthma 560486194 Active 2023 MARIBEL BLANCHARD NP [address], [address], [place], [address], [facility] 4 11:19:15 Hypertensi ve disorder 49105909 Active 2023 MARIBEL BLANCHARD NP [address], [address], [place], [address], [facility] 4 11:19:23 Insulin treated type 2 diabetes mellitus 677354334 Active 2023 MARIBEL BLANCHARD NP [address], [address], [place], [address], [facility] 4 11:19:52 Heart failure with normal ejection fraction 865307376 Active 2023 MARIBEL BLANCHARD NP [address], [address], [place], [address], [facility] 4 11:20:11 Severe pulmonary hypertensi on 679373334 Active 2023 MARIBEL BLANCHARD NP [address], [address], [place], [address], [facility] 4 11:20:24 Rheumatoid arthritis 14895493 Active 2023 on chronic prednisone MARIBEL BLANCHARD NP [address], [address], [place], [address], [facility] 4 11:21:07 Chronic anemia 066652523 Active 2023 followed by Hematology , Dr. Roddy BLANCHARD NP [address], [place], [address], [facility] 4 11:23:40 Hyperlipid emia 98955363 Active 2023 MARIBEL BLANCHARD NP [address], [address], [place], [address], [facility] 4 11:21:27 Chronic kidney disease stage 3 370012557 Active 2023 MARIBEL BLANCHARD NP [address], [place], [address], [facility] 4 11:30:57 Acute respirator y failure 50423971 Active 2023 MARIBEL BLANCHARD NP [address], [place], [address], [facility] 4 11:31:20 Gastroesop hageal reflux disease without esophagiti s 335850521 Active 2023 MARIBEL BLANCHARD NP [address], [address], [place], [address], [facility] 4 12:13:02 Aspirin therapy finding 273771944 Active 2023 MARIBEL BLANCHARD NP [address], [address], [place], [address], [facility] 4 12:13:26 Hypomagnes emia 258907071 Active 2023 MARIBEL BLANCHARD NP [address], [address], [place], [address], [facility] 4 12:13:44 Problem Notes None recorded. Medical Equipment None Reported. Allergies Allergen ID Allergen Name Allergen Category Reaction Reaction Severity Criticality Documentation Date Start Date Code Code System Note Provider Name and Address Organization Details Recorded Time 01518 Lasix medicatio n Not available Not available Not available 06/16/2024 69165 1 RxNorm MARIBEL BLANCHARD NP [address], [address], [place], [address], [facility] 4 11:18:20 80444 Vasotec medicatio n Not available Not available Not available 06/16/2024 01337 1 RxNorm MARIBEL BLANCHARD NP [address], [address], [place], [address], [facility] 4 11:18:06 54876 pineapple extract food Not available Not available Not available 06/16/2024 52427 74 RxNorm MARIBEL BLANCHARD NP [address], [address], [place], [address], [facility] 4 11:18:12 73012 latex environme nt,medica tion Not available Not available Not available 06/16/2024 69860 91 RxNorm MARIBEL BLANCHARD NP [address], [address], [place], [address], [facility] 4 11:18:26 Vitals Date Recorded Heart rate Respiratory rate Body temperature Oxygen saturation Oxygen saturation in Arterial blood by Pulse oximetry Systolic And Diastolic Provider Name and Address Organization Details Last Updated DateTime 4 80 /min 18 /min 98.2 [degF] 97 % 97 % 135/72 mm[Hg] MARIBEL BLANCHARD NP [address], [facility] [address], [place], [address], [facility] 4 11:12:07 Date Recorded Body height Body mass index (BMI) Body weight Heart rate Respiratory rate Body temperature Oxygen saturation Oxygen saturation in Arterial blood by Pulse oximetry Systolic And Diastolic Provider Name and Address Organization Details Last Updated DateTime 4 152.4 cm 30.5 kg/m2 28621.4 1 g 60 /min 18 /min 98 [degF] 97 % 97 % 144/69 mm[Hg] Tracie Arango MD [address] [place] [address] [address], [place], [address], [facility] 4 17:29:35 Date Recorded Body height Body mass index (BMI) Body weight Heart rate Respiratory rate Body temperature Oxygen saturation Oxygen saturation in Arterial blood by Pulse oximetry Systolic And Diastolic Provider Name and Address Organization Details Last Updated DateTime 4 152.4 cm 30 kg/m2 72299.7 9 g 68 /min 16 /min 97.2 [degF] 98 % 98 % 132/67 mm[Hg] Tracie Arango MD [address] [place] [address], [facility] [address], [place], [address], [facility] 4 13:49:38 Social History Question Answer Notes LastModified by Organizat ion Details LastModified Time Tobacco Smoking Status Former Smoker quit 1984 Tracie Arango MD [address] [place] [address], [facility] [address], [place], [address], [facility] 06/19/2024 19:56:29 Do You Have An Advance Directive? Yes [email or web address] Information not available 06/19/2024 What Is Your Code Status? Full Code No Dialysis Information not available 06/16/2024 Where Do You Live? [facility] Lives With Son And Grand Son, Son Is Disabled In Wheelchair, Doesn't Talk. Grandson Is In His 40s. [email or web address] Information not available 06/19/2024 Legal Guardian? No Informati on not available 06/19/2024 Do You Have A Medical Power Of Front Man? Yes Has HCP [email or web address] Information not available 06/16/2024 What Was The [...] use any illicit or recreational drugs? No Information not available 06/16/2024 Do you or have you ever used any other forms of tobacco or nicotine? No Information not available 06/16/2024 What is your level of alcohol consumption? None [email or web address] Information not available 06/16/2024 Mental Status None recorded. Family History Relationship Description Onset Age of this Age Resolved Age Notes LastModified by Organization Details LastModified Time Mother Harmful pattern of use of alcohol [email or web address] Not available 2023 11:52:31 Medical History No medical history recorded. Gynecological HistoryNo gynecological history recorded. Obstetrics History GPAL:G 0 P 0 0 0 0 Immunizations Vaccine Type Date Status Note Provider Nam e and Address Organization Details Recorded Time Tdap 3 completed Chloé Mar [facility] 06/16/2024 14:03:38 Td(adult) unspecified formulation 4 completed Chloé Mar [facility] 06/16/2024 14:03:59 Td(adult) unspecified formulation 7 completed Chloé Mar [facility] 06/16/2024 14:04:08 pneumococcal polysaccharide PPV23 6 completed Chloé Mar [facility] 06/16/2024 14:04:29 pneumococcal polysaccharide PPV23 9 [facility] 14:04:39 influenza, unspecified formulation 2 [facility] 14:04:55 influenza, unspecified formulation 4 [facility] 14:05:03 Past Encounters Encounter ID Performer Location Encounter Start Date Encounter Closed Date Diagnosis/Indication Diagnosis SNOMED-CT Code Diagnosis ICD10 Code Diagnosis IMO Codes Diagnosis Note [id number] MARIBEL BLANCHARD NP [facility] [address] [place] [place] [address] 06/16/2024 11:11:14 06/17/2024 08:48:38 Asthenia 86806011 R53.1 Deconditio jose due to recent hospitaliz ation and acute illnessPT OT eval and tx.Goal is to return home. Chronic ob structive pulmonary disease 49465337 J44.9 And asthmaSee above.Cont inue:Slow prednisone taper - 5 mg qd in May, then 2.5 mg qd in Jun., then stopPRN Robitussin DMPRN albuterol nebs and MDIMonitor resp. status. Acute resp iratory failure 37064011 J96.00 Multifacto rial - COPD, CHF, and [...] Heart fail ure with normal ejection fraction 726612965 I50.33 See above.Cont inue lasix 20 mg qdMonitor VS, LS, sats, CP status, labs for decompensa tion Chronic anemia 042857596 D64.9 Hgb 6.3 upon admit to [facility] d by Tanya outpt.Dr. Patino non compliant with po Fe at [...] Roddy brandt concerns Severe pul monary hypertension 234263642 I27.20 CV meds as above Insulin tr eated type 2 diabetes mellitus 537697255 Z79.4 Continue:L antus 16 units dailyNovol og SSI with mealsMonit or BS and adjust meds prn Hypertensive disorder 38 100261 I10 Continue home meds:Verap celia ER 240 mg qdLosartan 25 mg qdHydralaz ine 10 mg tidAdded lasix 20 mg qd in the hospitalTr end VS daily, BMP q Saturday, adjust meds prn Chronic ki dney disease stage 3 962056671 N18.30 Bump in Creat, with IV diuresis in hosp., now improved, back to baseline (1.46)Now on lasix 20 mg qd, losartan resumed upon d/cMaintai n hydrationB MP q Saturday to monitor Rheumatoid arthritis 698 39619 M06.9 No joint pain at present except chronic left elbow.On daily prednisone for COPD, suspect she is getting some benefit from this.APAP available prnMonitor Hyperlipidemia 29938947 E78.5 Continue pravastati n 20 mg qd Aspirin th erapy finding 553679762 Z79.82 On ASA 81 mg qd, unsure as to why, ? benefit in 83 yo elder, but will defer decision to PCP Hypomagnesemia 058423187 E83.42 On Mag Ox 400 mg bidCheck Mg level q Saturday, adjust as needed [id number] Tracie Arango MD [address] [address] 06/19/2024 17:02:55 2024 11:50:08 Asthenia 50716085 R53.1 Very deconditio jose.Needs PT/OT for strengthen ing, balance, gait training, safety and function.C ontinue fall precaution s.Monitor for safety. Acute resp iratory failure 10623062 J96.00 As above. Chronic ob structive pulmonary disease 47867968 J43.8 COPD/asthm a crossover syndrome.C ontinue slow prednisone taper 5 mg qd until 06/28 then 2.5 mg qd x 1 month and then d/c., she has been on prednisone chronicall y for RA, but tapering off.PRN Robitussin DMPRN albuterol nebs and MDIMonitor resp. status. Heart fail ure with normal ejection fraction 642341893 I50.33 Appears euvolemic. Continue meds as above.Abby tor resp. status, fluid status, wts and labs. Hypertensive disorder 38 879514 I10 In good control since here.Shay nue verapamil ER 240 mg qd, losartan 25 mg qd, hydralazin e 10 mg TID, and lasix 20 mg qd.Monitor BP and labs Chronic anemia 093244333 D64.89 Hgb 6.3 upon admit to [facility] d by Heme outpt., Dr. Patino non [...] heme as planned. Severe pul monary hypertension 675392041 I27.29 Med and f/u as above. Insulin tr eated type 2 diabetes mellitus 046860029 E11.22 In good control since here.Shay nue Lantus 16U qd and SSI.Monito r fingerstic ks TID and HgA1C q 3 months. Chronic ki dney disease stage 3 416712360 N18.32 Back to baseline.C ontinue to avoid nephrotoxi c meds as able.Monit or labs.Renal f/u as planned. Rheumatoid arthritis 698 39379 M06.89 Stable at this time.Shay nue prednisone taper as above and APAP 650 mg q 4 hrs prn.Monito r sxs. Hyperlipidemia 32201720 E78.49 Continue pravastati n 20 mg qd and ASA 81 mg qd.Monitor labs as outpt. Hypomagnesemia 133095998 E83.42 Continue Mag Ox 400 mg BID.Monito r Mg weekly. [id number] Tracie Arango MD [address] [address] 06/30/2024 13:45:24 07/01/2024 10:43:59 Chronic obstructive pulmonary disease 25749036 J43.8 COPD/asthm a crossover syndrome.C ontinue slow prednisone taper 2.5 mg qd x 1 month (end date 07/28) and then d/c., she has been on prednisone chronicall y for RA, but tapering off.Contin ue albuterol nebs/I prn for sxs.F/U with PCP Asthenia 27564699 R53.1 Much improved.C an continue PT/OT at home for further strengthen ing, balance, safety and function.F /U with PCP Chronic anemia 297904261 D64.89 Stable since here.Sl. drop yesterdayC ontinue Fe 325 mg BID with meals along with Vit C 500 mg qd for absorption .Continue colace qd to prevent constipati on.Monitor labs as outpt.F/U with heme as planned. Hypertensive disorder 38 107802 I10 Has been in good control while here.Shay nue verapamil ER 240 mg qd, losartan 25 mg qd, hydralazin e 10 mg TID, and lasix 20 mg qd.F/U with PCP as outpt. Heart fail ure with normal ejection fraction 917188415 I50.33 Continues to appear euvolemic. Continue meds as above.F/U as outpt. Severe pul monary hypertension 963935419 I27.29 Med and f/u as above. Acute resp iratory failure 74502628 J96.00 As above. Insulin tr eated type 2 diabetes mellitus 959902805 E11.22 In good control since here.Shay nue Lantus 16U qd and SSI.F/U as outpt. Chronic ki dney disease stage 3 943765214 N18.32 Remains at baseline.C ontinue to avoid nephrotoxi c meds as able.Monit or labs.Renal and PCP f/u as planned. Rheumatoid arthritis 698 78643 M06.89 Stable at this time.Shay nue prednisone taper as above and APAP 650 mg q 4 hrs prn.F/U with rheum and PCP as outpt. Hyperlipidemia 43295614 E78.49 Continue pravastati n 20 mg qd and ASA 81 mg qd.Monitor labs as outpt. Hypomagnesemia 540612492 E83.42 Remains WNL on current supplement .Continue [...] Merida Member ID Guarantor Name 06/30/2024 1 [facility] - DOS ON OR AFTER 2022 - MEDICARE ADVANTAGE [place] & [place] (MEDICARE REPLACEMENT/AD VANTAGE - PPO) Leann Almanzar [id number] Leann Almanzar Notes Date Note Type Note Provider Name and Address Organization Details Recorded Time 4 text/html Leann is seen today for initial intake.She is an 83 yo lady, admitted to [facility] 06/15/24 from [facility] for continued care and rehab after a brief hospitalization due to COPD exacerbation. She presented to [facility] 06/06/24 with 3 days of worsening SOB. [...] RA on chronic prednisone, chronic anemia, HLD, [id number]: full code, no dialysis MARIBEL BLANCHARD NP [address], [address], [place], [address], [facility] [employer] 06/16/2024 12:16:06 4 text/html This is an 83 yo woman who is here for rehab after an acute hospitalization for a COPD exacerbation and severe anemia.She presented to the [facility] ED on 06/06 with worsening SOB and [...] function worsening.Echocardiogram showed EF of 55-60% with [id number] aortic valve stenosis, small loculated pericardial effusion overlying the left ventricle, abnormal diastolic function. Weaned to room air and started on low-dose Lasix She was transferred here on 06/15.Since here she has been working with rehab and improving.I see her with a serbian speaking staff member.She says she is feeling better and getting some strength back. Her PMH includes HTN, asthma/COPD crossover, AODM, CHF pEF, severe pulmonary HTN, CKD stage 3, anemia, HLD, and RA on chronic prednisone. Tracie Arango MD [address], [address], [place], [address], [facility] 06/30/2024 13:43:36 4 text/html I am seeing this 83 yo woman today in anticipation fo rd/c later today.She was admitted on 06/15 after a hospitalization for COPD exacerbation and severe anemia. She presented to the [facility] ED on 06/06 with worsening SOB and [...] on chronic prednisone. Tracie Arango MD [address], [address], [place], [address], [facility] 06/30/2024 14:32:06 OBGyn Episode No OBEpisode recorded.
--- OUTSIDE RECORDS SUMMARY | 2025-06-07 14:27 | XMS_ITS | Encounter Summary ---
Author Organization [facility] Address [address] [place] [address] Care Team Providers Care Earth Observations Chief Scientist Name Role Phone Teofilo Moreno MD Primary Care Provider Encounter Details Date Type Department Care Team (Late Contact Info) Description 06/26/2024 Lab Requisition [facility] - Main Lab [address] [facility] [place] [address] Audi Luke MD [address] [facility] [address] [place], [address] Essential (primary) hypertension; Anemia, unspecified; Chronic [...] Office Visit Nephrology - [address] [place] [address] Bharath Gonsalez MD [address] [facility] [address] [place] [address] 07/27/2025 2:15 PM EST Office Visit Endocrinology [address] [phone] Gladys Sow PA [address] [place] [address] 08/17/2025 2:30 PM EST Office Visit Adult Medicine [address] [phone] Frantz Martinez PA [address] [place], [place] documented as of this encounter Procedures Procedure Name Priority Date/Time Associated Diagnosis Comments COMPLETE BLOOD COUNT Routine 06/29/2024 5:35 AM EST Essential (primary) hypertension Anemia, unspecified Chronic obstructive pulmonary disease, unspecified (CMS/HCC) MAGNESIUM Routine 06/29/2024 5:35 AM EST Essential (primary) hypertension Anemia, unspecified Chronic obstructive pulmonary disease, unspecified (CMS/HCC) COMPREHENSIVE METABOLIC PANEL Routine 06/29/2024 5:35 AM EST Essential (primary) hypertension Anemia, unspecified Chronic obstructive pulmonary disease, unspecified (CMS/HCC) documented in this encounter Results * Magnesium (06/29/2024 5:35 AM EST) Magnesium 2.6 1.9 - 2.6 mg/dL LAB CHEMISTRY METHOD 06/29/2024 9:09 AM EST [facility] Blood Venous blood specimen / Unknown Venipuncture / Unknown 06/29/2024 5:35 AM EST 06/29/2024 8:11 AM EST us Audi Luke MD LAB BLOOD ORDERABLES Final Resul t [facility] [address] [place] [address], [place] [phone] * (ABNORMAL) Comprehensive metabolic panel (06/29/2024 5:35 AM EST) Sodium 145 133 - 145 mmol/L LAB CHEMISTRY METHOD 06/29/2024 9:18 AM [facility] Potassium 3.9 3.5 - 5.5 mmol/L LAB CHEMISTRY METHOD 06/29/2024 9:18 AM [facility] Chloride 107 96 - 110 mmol/L LAB CHEMISTRY METHOD 06/29/2024 9:18 AM [facility] CO2 32 21 - 32 mmol/L LAB CHEMISTRY METHOD 06/29/2024 9:18 AM [facility] Anion Gap 6 3 - 11 LAB CHEMISTRY METHOD 06/29/2024 9:18 AM [facility] Glucose 44(L) 70 - 100 mg/dL LAB CHEMISTRY METHOD 06/29/2024 9:18 AM [facility] BUN 39(H) 5 - 25 mg/dL LAB CHEMISTRY METHOD 06/29/2024 9:18 AM [facility] Creatinine 1.61(H) 0.50 - 1.10 mg/dL LAB CHEMISTRY METHOD 06/29/2024 9:18 AM [facility] eGFR 32(L) >=60 mL/min/1. 73m2 LAB CHEMISTRY METHOD 06/29/2024 9:18 AM [facility] Comment:Calculation based on the Chronic Kidney Disease Epidemiology Collaboration (CKD-EPI) equation refit without adjustment for race. BUN/Creatinine Ratio 24.2 LAB CHEMISTRY METHOD 06/29/2024 9:18 AM [facility] Calcium 9.7 8.5 - 10.5 mg/dL LAB CHEMISTRY METHOD 06/29/2024 9:18 AM [facility] AST (SGOT) 18 10 - 42 unit/L LAB CHEMISTRY METHOD 06/29/2024 9:18 AM [facility] ALT (SGPT) 18 10 - 60 unit/L LAB CHEMISTRY METHOD 06/29/2024 9:18 AM [facility] Alkaline Phosphatase 66 42 - 121 unit/L LAB CHEMISTRY METHOD 06/29/2024 9:18 AM [facility] Total Protein 5.3(L) 6.0 - 8.0 g/dL LAB CHEMISTRY METHOD 06/29/2024 9:18 AM [facility] Albumin 2.9(L) 3.2 - 5.0 g/dL LAB CHEMISTRY METHOD 06/29/2024 9:18 AM [facility] Total Bilirubin 0.5 0.0 - 1.4 mg/dL LAB CHEMISTRY METHOD 06/29/2024 9:18 AM [facility] Blood Venous blood specimen / Unknown Venipuncture / Unknown 06/29/2024 5:35 AM EST 06/29/2024 8:11 AM EST us Audi Luke MD LAB BLOOD ORDERABLES Final Resul t [facility] [address] [place] [address], * (ABNORMAL) Complete blood count (06/29/2024 5:35 AM EST) WBC 12.0(H) 4.8 - 10.8 K/mcL LAB HEMETOLOGY METHOD 06/29/2024 8:31 AM [facility] RBC 3.70(L) 3.80 - 4.80 M/mcL LAB HEMETOLOGY METHOD 06/29/2024 8:31 AM [facility] Hemoglobin 9.4(L) 11.5 - 16.0 g/dL LAB HEMETOLOGY METHOD 06/29/2024 8:31 AM [facility] Hematocrit 31.1(L) 35.0 - 47.0 % LAB HEMETOLOGY METHOD 06/29/2024 8:31 AM EST [facility] MCV 84.3 79.0 - 98.0 FL LAB HEMETOLOGY METHOD 06/29/2024 8:31 AM [facility] MCH 25.5(L) 27.0 - 32.0 pcg LAB HEMETOLOGY METHOD 06/29/2024 8:31 AM EST [facility] MCHC 30.2(L) 32.0 - 37.0 g/dL LAB HEMETOLOGY METHOD 06/29/2024 8:31 AM [facility] RDW 21.8(H) 11.0 - 15.0 % LAB HEMETOLOGY METHOD 06/29/2024 8:31 AM [facility] Platelets 265 130 - 400 K/mcL LAB HEMETOLOGY METHOD 06/29/2024 8:31 AM EST [facility] MPV 11.3(H) 7.0 - 11.0 FL LAB HEMETOLOGY METHOD 06/29/2024 8:31 AM EST [facility] NRBC 0.0 <1.0 % LAB HEMETOLOGY METHOD 06/29/2024 8:31 AM [facility] NRBC Absolute 0.00 <0.10 K/mcL LAB HEMETOLOGY METHOD 06/29/2024 8:31 AM [facility] Blood Venous blood specimen / Unknown Venipuncture / Unknown 06/29/2024 5:35 AM EST 06/29/2024 8:11 AM EST us Audi Luke MD LAB BLOOD ORDERABLES Final Resul t [facility] [address] [place] [address], documented in this encounter Visit Diagnoses Diagnosis Essential (primary) hypertension Unspecified essential hypertension Anemia, unspecified Chronic obstructive pulmonary disease, unspecified (CMS/[facility] V24, CMS/[facility] V28) documented in this encounter Care Teams Earth Observations Chief Scientist Relationship Specialty Start Date End Date Teofilo Moreno MD [address] [place] [phone] PCP - General Internal Medicine 07/01/24 documented as of this encounter
[2025-06-07 15:22] VITALS: BP 177/68; PULSE 54; RESP 16; TEMP 36.4; O2SAT 92
== END 2025-06-07 15:22 | disposition home or self-care (01) ==
PROVIDERS: Emergency Provider Emergency Medicine; PCP Internal Medicine
DX: S52.502A Unspecified fracture of the lower end of left radius, initial encounter for closed fracture (principal); M62.830 Muscle spasm of back; R91.1 Solitary pulmonary nodule; I10 Essential (primary) hypertension; E11.9 Type 2 diabetes mellitus without complications; J44.89 Other specified chronic obstructive pulmonary disease; D64.9 Anemia, unspecified; M06.9 Rheumatoid arthritis, unspecified; Z79.52 Long term (current) use of systemic steroids; Z79.82 Long term (current) use of aspirin; W10.9XXA Fall (on) (from) unspecified stairs and steps, initial encounter; Y93.9 Activity, unspecified; Y92.22 Religious institution as the place of occurrence of the external cause; Y99.9 Unspecified external cause status; Z91.040 Latex allergy status
CPT/HCPCS: 36415; 70450; 71260; 72125; 73110; 73130; 74177; 80048; 80076; 83690; 84484; 85025; 93005; 96365; 96366; 96375; 99284; 99285; J0131; J2405; Q9967

== ENCOUNTER → 2025-06-07 11:22 | Outpatient (BNV) | payer OTHER, SELFPAY | PROVIDERS: Emergency Provider Emergency Medicine; PCP Internal Medicine; Visit Provider Internal Medicine Cardiovascular Disease | DX: I44.7 Left bundle-branch block, unspecified (principal); R00.1 Bradycardia, unspecified | CPT/HCPCS: 93010 ==

== ENCOUNTER → 2025-06-07 11:32 | Outpatient (BNV) | payer OTHER, SELFPAY | PROVIDERS: Emergency Provider Emergency Medicine; PCP Internal Medicine; Visit Provider Radiology Diagnostic Radiology | DX: R10.9 Unspecified abdominal pain (principal); R11.2 Nausea with vomiting, unspecified; J98.11 Atelectasis; I25.10 Atherosclerotic heart disease of native coronary artery without angina pectoris; J90 Pleural effusion, not elsewhere classified; I51.7 Cardiomegaly; J98.4 Other disorders of lung; M50.31 Other cervical disc degeneration, high cervical region; M85.842 Other specified disorders of bone density and structure, left hand; Z04.3 Encounter for examination and observation following other accident | CPT/HCPCS: 70450; 71260; 72125; 73110; 73130; 74177 ==

== ENCOUNTER 2025-06-10 11:23 | Outpatient (AMB) | payer OTHER, SELFPAY ==
[2025-06-10 11:32] VITALS: BP 130/68; PULSE 58; O2SAT 95; BMI 30.5
--- NOTE | 2025-06-10 11:32 | A.OFFVIS_ITS ---
Vital Signs 06/10/25 11:32 Height 4 ft 11 in Weight 151 lb 0.266 oz BMI 30.5 BP 130/68 Blood Pressure Location Lt brachial Position Sitting Pulse 58 Pulse Source Pulse Oximeter Pulse Oximetry (%) 95 Oxygen Delivery Method Room Air Intake Visit Reasons: Abnormal CT scan Intake Note: pt is here for follow up of ER from a fall had ct scan and here for follow up and also states she is bringing up a lot of phlegm Cardiac Exercise Specialist Required: No Civil Engineer In Training: Civil Engineer In Training offered & declined Allergies latex (LATEX) Allergy (Unknown, Verified 06/10/25 14:13) RASH pineapple (PINEAPPLE) Allergy (Unknown, Verified 06/10/25 14:13) HIVES enalaprilat (From Vasotec) Adverse Reaction (Mild, Verified 06/10/25 14:13) Unknown Medication List - Last Reconciled 06/10/25 by Clifton Reese MD albuterol sulfate 2.5 mg (3 mL) inhalation Q4-6H PRN albuterol sulfate 90 mcg/actuation (Ventolin HFA) 2 puffs PO Q8H PRN aspirin 81 mg PO DAILY blood sugar diagnostic (FreeStyle Lite Strips) blood sugar diagnostic As directed cyanocobalamin (vitamin B-12) 500 mcg PO DAILY docusate sodium 100 mg PO DAILY doxycycline hyclate 100 mg PO BID 10 days empagliflozin (Jardiance) 10 mg PO DAILY ferrous sulfate 324 mg PO BIDWM furosemide 20 mg See Protocol PO DAILY hydralazine 10 mg PO TID inhalat.spacing dev,large mask As directed insulin aspart U-100 (Novolog FlexPen U-100 Insulin aspart) See Protocol sliding scale doses subcut TIDWM insulin glargine (Lantus U-100 Insulin) 12 units subcut DAILY@0900 lancets As directed losartan 25 mg PO DAILY magnesium oxide 400 mg PO BID omeprazole 20 mg PO DAILY@0630 polyethylene glycol 3350 (Miralax) 17 grams PO DAILY PRN pravastatin 20 mg PO BEDTIME prednisone 10 mg PO DAILY verapamil ER 240 mg PO BEDTIME Do you need a note to return to daycare/school/sports/work: No HPI HPI Abnormal CT scan: Details: THIS 84 YEARS OLD VERY PLEASANT FEMALE IS HERE, WITH HER DAUGHTER.. FOR FOLLOW- UP AFTER A RECENT EMERGENCY ROOM VISIT. PATIENT HAD FALLEN DOWN ON THE STEPS OF THE STAIRS AT [facility], ABOUT 1 WEEK AGO, SHE DID HAVE SPRAIN OF THE LEFT WRIST NO OTHER SERIOUS INJURIES. SHE WAS COMPLAINING OF LOW BACK PAIN AND BACK PAIN IN THE BACK OF THE CHEST. AND ENDED UP HAVING CT SCAN OF THE CHEST ALONG WITH X-RAYS OF THE SPINE . THE CT SCAN SHOWED A 3 CM SIZED NONSPECIFIC DENSITY IN THE LEFT UPPER LOBE. SHE WAS TOLD TO COME TO SEE ME FOR FURTHER ADVICE. SHE CLAIMS OF SHORTNESS OF BREATH ON EXERTION BUT SHE DOES NOT WALK TOO FAST ANY WAY. SHE DOES HAVE BOUTS OF COUGH ESPECIALLY AT NIGHT AND IN THE MORNING, AND BRINGS OF MODERATE AMOUNT OF WHITE MUCUS. DENIES ANY WHEEZING . IT SHOULD BE NOTED THAT THIS PATIENT HAS CHRONIC RHEUMATOID ARTHRITIS, AND HAS BEEN ON PREDNISONE 10 MG DAILY FOR LONG TIME. [facility] Medical History Lung density on x-ray Asthma with COPD Anemia Hypoxia Rheumatoid arthritis Cough COPD (chronic obstructive pulmonary disease) Bacteremia due to Streptococcus pneumoniae Benign paroxysmal positional vertigo Arthritis Restrictive lung disease Surgical History Hx of cholecystectomy Family History Mother Diabetes Maternal Grandmother Diabetes Social History Household Members: Children Housing: Apartment Are you a primary technical healthcare consultant to a significant other at home: No Do you presently have visiting nurse or other home services: Yes Alcohol intake: former Patient Tobacco Use Status: Never used Tobacco Cigarette Packs Per Day: 1 Advance Directives Date on File: 06/16/24 service: No Current occupational status: unemployed Review of Systems Const All systems reviewed & are unremarkable except as noted in HPI and below Eyes Reports no additional complaints ENT Reports no additional complaints Card Denies chest pain, Denies irregular heart rhythm and Denies leg edema Resp Reports as per HPI GI Reports no additional complaints Reports no additional complaints Musc Reports abnormal gait (Slow and uses cane), Reports back pain, Reports deformity and Reports muscle weakness (General muscular weakness) Skin/Breast Reports system reviewed and no additional complaints, except as documented Neuro Reports no additional complaints and Reports abnormal gait (Slow and uses cane) Psych Reports no additional complaints Physical Exam Vital Signs: Last Vital Signs Pulse 58 06/10/25 11:32 BP 130/68 06/10/25 11:32 Pulse Ox 95 06/10/25 11:32 Oxygen Delivery Method Room Air 06/10/25 11:32 BMI result Body Mass Index 30.5 Const General: comfortable, no acute distress, alert and awake Orientation/consciousness: patient oriented x3 HEENT Head: Yes normal to inspection General nose exam: No nasal polyps present and No nasal discharge present Face and sinus: Yes sinuses nontender Mouth: oropharynx normal Throat: Yes posterior oropharynx normal Eyes General: appearance normal, both eyes and all related structures Neck Neck: Yes normal visual inspection, Yes no lymphadenopathy, Yes trachea midline and Yes no JVD Thyroid: Thyroid normal Chest Chest palpation & inspection: normal inspection of the chest, normal palpation of entire chest wall and no tenderness Resp Other: Percussion note resonant, breath sounds are distant with prolonged expiratory phase. No wheezes or rhonchi or crepitations are heard . But breath sounds are somewhat harsh in the left upper lobe area. Cardio Palpation: normal PMI Rate: regular rate Rhythm: regular rhythm Heart sounds: no gallops and no murmurs GI Palpation (GI): Soft to palpation, nontender, No hepatosplenomegaly present and no masses Auscultation: normal bowel sounds Back/Spine/Pelvis Thoracic/Lumbar Spine: thoracic and lumbar spine normal to inspection and thoraco-lumbar ROM limited Skin General skin exam: no rashes or lesions noted Neuro General: patient oriented x3, No gait normal (Slow and needs the cane for support) and no focal motor deficits Cranial nerves: Yes CN's II-XII intact bilaterally Extrem General: Yes normal to inspection, Yes no clubbing, cyanosis or edema and Yes no calf tenderness Right upper extremity: wrist (Left wrist is in a splint) Psych Appearance: grossly normal and well kempt Speech and movement: Normal speech and movement present Results Reviewed Results Reviewed: CT scan of the chest reviewed. There is no evidence of any bony fracture, consolidations, or pleural effusion. However there is a nonspecific 3 cm density in the left upper lobe area. This could be a patch of pneumonitis. Assessment & Plan Assessment & Plan (1) Restrictive lung disease: Comment: She has MILD restrictive pulmonary disorder which is probably due to obesity. The only treatment she needs is to keep the weight under control and do deep breathing exercises .t.i.d. Code(s): J98.4 - Other disorders of lung Category: Medical Plan: As above (2) Cough: Comment: COMPLAINS OF INCREASED COUGH IN THE PAST FEW WEEKS. BUT DENIES HAVING HAD ANY UPPER RESPIRATORY INFECTION. CT SCAN OF THE CHEST INDICATING A NONSPECIFIC DENSITY IN THE LEFT UPPER LOBE MAY SUGGEST A PATCHY PNEUMONITIS. Code(s): R05.9 - Cough, unspecified Category: Medical Plan: PATIENT IS GOING TO BE TREATED WITH DOXYCYCLINE 100 B.I.D. FOR 10 DAYS FOR POSSIBLE BACTERIAL BRONCHITIS/PNEUMONITIS. (3) Asthma with COPD: Comment: SHE DOES HAVE CHRONIC ASTHMA, WHICH HAS NOW CHANGED INTO ASTHMA /COPD THIS HAS BEEN MILD AND WELL CONTROLLED. BUT SHE IS PRONE TO HAVE AN ACUTE EXACERBATION AFTER ANY RESPIRATORY INFECTION. CURRENTLY THERE IS NO EVIDENCE OF ANY ACUTE INFECTION. Code(s): J44.89 - Other specified chronic obstructive pulmonary disease Category: Medical Plan: THIS PATIENT IS ADVISED TO USE VENTOLIN HFA 2 PUFFS Q 4-6 HOURS P.R.N. FOR ACUTE WHEEZING OR. SHORTNESS OF BREATH NOTED ABOVE SHE IS ALSO ON PREDNISONE 10 MG DAILY INDEFINITELY, FOR RHEUMATOID ARTHRITIS. THIS MAY BE HELPING TO KEEP HER LUNGS CLEAR. (4) Lung density on x-ray: Comment: NOTED ABOVE SHE WAS FOUND TO HAVE A DENSITY IN THE LEFT UPPER LOBE, ABOUT 3 CM IN SIZE. IT IS NONSPECIFIC. . MALIGNANCY CAN NOT BE RULED OUT BUT I REASSURED THE PATIENT THAT IT IS MOST LIKELY INFECTIOUS IN NATURE. Code(s): J98.4 - Other disorders of lung Category: Medical Plan: WILL TREAT HER EMPIRICALLY WITH DOXYCYCLINE 100 B.I.D. FOR 10 DAYS SHE WILL HAVE A REPEAT CT SCAN IN ABOUT 10 WEEKS, BEFORE HER NEXT VISIT Orders: Orders CT chest wo IV con 10 Weeks J98.4 - Other disorders of lung Medications: New doxycycline hyclate 100 mg PO BID 20 tabs 0RF 10 days Coding Level of Care Code Est Pt Level 3 (79201) Diagnoses Restrictive lung disease J98.4 Cough R05.9 Asthma with COPD J44.89 Lung density on x-ray J98.4
--- OUTSIDE RECORDS SUMMARY | 2025-06-10 14:36 | XMS_ITS | Data Portability ---
Author Organization [employer] [facility], [email or web address] Address [address] [place] [address] Care Team Providers Care Screen Handler Name Role Phone [facility] Referring Provider Assessment Encounter Date Assessment Date Assessment LastModified [...] She will follow up with her PCP. [email or web address] Not available 01/19/2022 15:12:38 05/31/2023 05/31/2023 I provided real -time medical direction via phone for this encounter, and was available for additional phone based assistance as needed. I have reviewed and agree with the Assessment and Plan as documented by the Cath Lab. Patient given the opportunity to ask questions. [...] particularly fever chills lightheadedness altered mental status [facility] Not available 05/31/2023 21:11:54 Plan of Treatment Reminders Order Date Submit Date Provider Last Modified By Organization Details Last Modified Time Details Appointments None recorded. Lab rapid SARS CoV 2 Ag, QL IA, respiratory specimen [address], [address] [place] [address] 3 21:11:56 rapid flu (A+B) [address], [address] [place] [address] 21:11:55 Referral None recorded. Procedures None recorded. Surgeries None recorded. Imaging None recorded. Medication Orders None recorded. Patient TargetsNo targets recorded. Patient InstructionsNo instructions recorded. Reason for Referral None Reported. Results Created Date Observation Date Name Description Value Unit Range Abnormal Flag Note LastModifiedBy Organization Detail LastModifiedTime 05/31/2005/31/2023 rapid flu (A+B) Flu negati ve Not Available [facility] ed [address] [place] [address], [address] [place] [address] 05/31/2023 21:09:13 05/31/20 23 05/31/2023 rapid SARS CoV 2 Ag, QL IA, respi rator y speci men rapid SARS CoV 2 Ag, QL IA, respiratory specimen negati ve Not Available [facility] ed [address] [place] [address], [address] [place] [address] 05/31/2023 21:09:10 Result Notes None recorded. Medical Equipment None Reported. Allergies Allergen ID Allergen Name Allergen Category Reaction Reaction Severity Criticality Documentation Date Start Date Code Code System Note Provider Name and Address Organization Details Recorded Time 7994 latex environme nt,medica tion Not available Not available Not available 05/26/2024 70755 91 RxNorm Not Available [facility] - production [...] 325 mg (65 mg iron) tablet TOME LIZ TABLETA DOS VECES AL [...] % 98.2 [degF] 138/74 mm[Hg] Not Available [employer] 3 17:13:23 Date Recorded Body weight Respiratory rate Body height Oxygen saturation Oxygen saturation in Arterial blood by Pulse oximetry Heart rate Body temperature Systolic And Diastolic Provider Name and Address Organization Details Last Updated DateTime 2 33406.7 6 g 18 /min 144.78 cm 95 % 95 % 58 /min 98 [degF] 160/77 mm[Hg] Not Available [employer] 2 15:07:37 Date Recorded Respiratory rate Heart rate Body temperature Body height Oxygen saturation Oxygen saturation in Arterial blood by Pulse oximetry Body weight Systolic And Diastolic Provider Name and Address Organization Details Last Updated DateTime 3 18 /min 79 /min 98.5 [degF] 149.86 cm 94 % 94 % 08959.6 96 g 118/69 mm[Hg] Not Available [employer] 3 21:08:44 Social History None recorded. Functional [...] [id number] Antelmo Otoole MD Main - [facility] [address] [place] [phone] 01/19/2022 15:07:34 01/19/2022 15:13:29 [id number] Gal Bashir MD Main - [facility] [address] [place] [phone] 01/11/2023 17:13:22 01/12/2023 23:09:33 [id number] Lissa Roman MD Main - [facility] [address] [place] [phone] 05/31/2023 21:08:41 06/04/2023 10:48:10 Upper respiratory infection 78642031 J06.9 Health Concerns Section Related Observation LastModified by Organization Detai ls LastModified Time None Recorded Concern Status LastModified by Organization Details LastModified Time None Recorded Advance Directives Directive None Recorded Payers Insurance Date Sequence Insurance Name Policy Number Policy Merida Covered Member ID Merida Member ID Guarantor Name 11/27/[address] [facility] - DOS PRIOR TO 2022 - DUAL ELIGIBLE (MEDICARE REPLACEMENT/AD VANTAGE - HMO) Leann Almanzar [id number] Leann Almanzar 11/27/[address] [facility] - DOS ON OR AFTER 2022 - DUAL ELIGIBLE - INTERMEDIATE OPTIONS AND ONE CARE (MEDICARE REPLACEMENT/AD VANTAGE - HMO) Leann Jenelle [id number] Leann Almanzar Notes Date Note Type Note Provider Name and Address Organization Details Recorded Time 01/19/2022 text/html ROS as noted in the HPI HPI: Call transferred to CRU from [facility]. Mbr's granddaughter/INTELLIGENCE OFFICER BASIC, Rafaela Ward on the phone. Reports member [...] ..................... ..................... ..................... ..................... ..................... ..................... ............... Cath Lab Note: Sent to a call for a [...] Lung sounds: clear bilaterally; (Standing) BP:158/69, P:61; [facility] advises pt to move slowly, rest and monitor symptoms to see if vertigo gets worse. If symptoms persist or get worse follow up with PCP or seek medical attention. Red flags discussed. Pt and family have no further questions. ..................... ..................... ..................... ..................... ..................... ..................... ............... Disposition: Fulfilled Antelmo Otoloe MD [address] [place] [address],[address], [place], [address], [employer] 01/19/2022 15:13:27 01/11/2023 text/html ROS as noted [...] ..................... ..................... ..................... ..................... ..................... ..................... ............... Cath Lab Note From Gustavo Alvarado: Dispatched to the [...] ............... Disposition: Fulfilled Gal Bashir MD [address] [facility],[address], [place], [address], [employer] 08/07/2023 13:58:00 05/31/2023 text/html CRC Nursing Assessment: [...] ..................... ..................... ..................... ..................... ..................... ..................... ............... Cath Lab Note From Leda Lal: Sent to a call for a pt complaining of productive cough x 3 weeks. SC8 arrives on scene, pt is alert and oriented, airway is patent. Pt primarily speaks Mauritian, and family member serves as foreign language interpreter. Pt complains of productive cough with yellow [...] ..................... ..................... ..................... ............... Disposition: Fulfilled Lissa Roman MD [address] [facility],[address], [place], [address], [employer] 05/31/2023 21:12:31 OBGyn Episode No OBEpisode recorded.
--- OUTSIDE RECORDS SUMMARY | 2025-06-10 14:36 | XMS_ITS | Encounter Summary ---
Author Organization [facility] Address [address] [place] [address] Care Team Providers Care Director Of Real Estate Name Role Phone Teofilo Moreno MD Primary Care Provider [phone] Reason for Visit * Reason Comments home health cert Start of Care Date: 07/03/24Date of certification period: 07/03/24-08/31/24Date of service = signature date 07/14/24ospice patient: [facility] Agency: [facility],[employer] Encounter Details Date Type Department Care Team (Late st Contact Info) Description 07/30/2024 Billing Patient Not Present Adult Medicine [address] [phone] Teofilo Moreno MD [address] [place] [address] COPD with acute exacerbation (CMS/HCC V24, CMS/HCC [...] unspecified whether stage 3a or 3b CKD ([facility] V24, [facility] V28); Hyperkalemia; Gastroesophageal reflux disease without esophagitis; group home (current) use of insulin ([facility] V24, [facility] V28); Other specified rheumatoid arthritis, multiple sites ([facility] V24, [facility] V28); Other emphysema ([facility] V24, [facility] V28); Hypomagnesemia; Hyperlipidemia, unspecified hyperlipidemia type; Pulmonary hypertension, unspecified ([facility] V24, [facility] V28); group home (current) use of aspirin Social History Tobacco [...] Care Team (Late st Contact Info) Description 07/27/2025 2:15 PM EST Office Visit Endocrinology [address] [phone] Gladys Sow PA [address] [place] [address] 08/03/2025 3:00 PM EST Office Visit Nephrology - [address] [phone] Bharath Gonsalez MD [address] [facility] [address] [place] [address] 08/17/2025 2:30 PM EST Office Visit Adult Medicine [address] [phone] Frantz Martinez PA [address] [place] [address] documented as of this encounter Visit Diagnoses Diagnosis COPD with acute exacerbation ([facility] V24, [facility] V28)- Primary Acute respiratory failure with hypoxia ([facility] V24, [facility] V28) Other disorders of lung Acquired hemolytic anemia, unspecified ([facility] V24, [facility] V28) Acquired hemolytic anemia, unspecified 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 ([facility] V24, [facility] V28) Essential (primary) hypertension Unspecified essential hypertension Diastolic congestive heart failure, unspecified HF chronicity ([facility] V24, [facility] V28) Heart failure, unspecified HF chronicity, unspecified heart failure type ([facility] V24, [facility] V28) Mild persistent asthma without complication Stage 3 chronic kidney disease, unspecified whether stage 3a or 3b CKD ([facility] V24, [facility] V28) Hyperkalemia Hyperpotassemia Gastroesophageal reflux disease without esophagitis Esophageal reflux group home (current) use of insulin ([facility] V24, [facility] V28) Other specified rheumatoid arthritis, multiple sites ([facility] V24, [facility] V28) Other emphysema ([facility] V24, [facility] V28) Other emphysema Hypomagnesemia Disorders of magnesium metabolism Hyperlipidemia, unspecified hyperlipidemia type Pulmonary hypertension, unspecified ([facility] V24, [facility] V28) group home (current) use of aspirin documented in this encounter Care Teams Director Of Real Estate Relationship Specialty Start Date End Date Teofilo Moreno MD [address] [place] [phone] PCP - General Internal Medicine 07/01/24 documented as of this encounter
--- OUTSIDE RECORDS SUMMARY | 2025-06-10 14:36 | XMS_ITS | Encounter Summary ---
Author Organization [facility] Address [address] [place] [address] Care Team Providers Care Salesperson Women'S Dresses Name Role Phone Teofilo Moreno MD Primary Care Provider Encounter Details Date Type Department Care Team (Late Contact Info) Description 06/26/2024 Lab Requisition [facility] - Main Lab [address] [facility] [place] [address] Audi Luke MD [address], [phone] Essential (primary) hypertension; Anemia, unspecified; Chronic [...] Department Care Team (Late Contact Info) Description 07/27/2025 2:15 PM EST Office Visit Endocrinology - [place] [address] [place] [phone] Gladys Sow PA [address] [place] [phone] 08/03/2025 3:00 PM EST Office Visit Nephrology - [place] [address] [place], [place] [phone] Bharath Gonsalez MD [address] [place] [address] 08/17/2025 2:30 PM EST Office Visit Adult Medicine [address] [phone] Frantz Martinez PA [address] [place] [address] documented as of this encounter Procedures Procedure [...] CHEMISTRY METHOD 06/29/2024 9:09 AM EST [facility] Blood Venous blood specimen / Unknown Venipuncture / Unknown 06/29/2024 5:35 AM EST 06/29/2024 8:11 AM EST us Audi Luke MD LAB BLOOD ORDERABLES Final Resul t [facility] [address] [place] [address], [place] [phone] * (ABNORMAL) Comprehensive metabolic panel (06/29/2024 5:35 AM EST) Sodium 145 133 - 145 mmol/L LAB CHEMISTRY METHOD 06/29/2024 9:18 AM [facility] Potassium 3.9 3.5 - 5.5 mmol/L LAB CHEMISTRY METHOD 06/29/2024 9:18 AM [facility] Chloride 107 96 - 110 mmol/L LAB CHEMISTRY METHOD 06/29/2024 9:18 AM [facility] CO2 32 21 - 32 mmol/L LAB CHEMISTRY METHOD 06/29/2024 9:18 AM [facility] Anion Gap 6 3 - 11 LAB CHEMISTRY METHOD 06/29/2024 9:18 AM [facility] Glucose 44(L) 70 - 100 mg/dL LAB CHEMISTRY METHOD 06/29/2024 9:18 AM [facility] BUN 39(H) 5 - 25 mg/dL LAB CHEMISTRY METHOD 06/29/2024 9:18 AM [facility] Creatinine 1.61(H) 0.50 - 1.10 mg/dL LAB CHEMISTRY METHOD 06/29/2024 9:18 AM [facility] eGFR 32(L) >=60 mL/min/1. 73m2 LAB CHEMISTRY METHOD 06/29/2024 9:18 AM [facility] Comment:Calculation based on the Chronic Kidney Disease Epidemiology Collaboration (CKD-EPI) equation refit without adjustment for race. BUN/Creatinine Ratio 24.2 LAB CHEMISTRY METHOD 06/29/2024 9:18 AM [facility] Calcium 9.7 8.5 - 10.5 mg/dL LAB CHEMISTRY METHOD 06/29/2024 9:18 AM [facility] AST (SGOT) 18 10 - 42 unit/L LAB CHEMISTRY METHOD 06/29/2024 9:18 AM [facility] ALT (SGPT) 18 10 - 60 unit/L LAB CHEMISTRY METHOD 06/29/2024 9:18 AM [facility] Alkaline Phosphatase 66 42 - 121 unit/L LAB CHEMISTRY METHOD 06/29/2024 9:18 AM [facility] Total Protein 5.3(L) 6.0 - 8.0 g/dL LAB CHEMISTRY METHOD 06/29/2024 9:18 AM [facility] Albumin 2.9(L) 3.2 - 5.0 g/dL LAB CHEMISTRY METHOD 06/29/2024 9:18 AM [facility] Total Bilirubin 0.5 0.0 - 1.4 mg/dL LAB CHEMISTRY METHOD 06/29/2024 9:18 AM [facility] Blood Venous blood specimen / Unknown Venipuncture / Unknown 06/29/2024 5:35 AM EST 06/29/2024 8:11 AM EST us Audi Luke MD LAB BLOOD ORDERABLES Final Resul t [facility] [address] [place] [address], * (ABNORMAL) Complete blood count (06/29/2024 5:35 AM EST) WBC 12.0(H) 4.8 - 10.8 K/mcL LAB HEMETOLOGY METHOD 06/29/2024 8:31 AM [facility] RBC 3.70(L) 3.80 - 4.80 M/mcL LAB HEMETOLOGY METHOD 06/29/2024 8:31 AM [facility] Hemoglobin 9.4(L) 11.5 - 16.0 g/dL LAB HEMETOLOGY METHOD 06/29/2024 8:31 AM [facility] Hematocrit 31.1(L) 35.0 - 47.0 % LAB HEMETOLOGY METHOD 06/29/2024 8:31 AM EST [facility] MCV 84.3 79.0 - 98.0 FL LAB HEMETOLOGY METHOD 06/29/2024 8:31 AM [facility] MCH 25.5(L) 27.0 - 32.0 pcg LAB HEMETOLOGY METHOD 06/29/2024 8:31 AM EST [facility] MCHC 30.2(L) 32.0 - 37.0 g/dL LAB HEMETOLOGY METHOD 06/29/2024 8:31 AM [facility] RDW 21.8(H) 11.0 - 15.0 % LAB HEMETOLOGY METHOD 06/29/2024 8:31 AM [facility] Platelets 265 130 - 400 K/mcL LAB HEMETOLOGY METHOD 06/29/2024 8:31 AM EST [facility] MPV 11.3(H) 7.0 - 11.0 FL LAB HEMETOLOGY METHOD 06/29/2024 8:31 AM EST [facility] NRBC 0.0 <1.0 % LAB HEMETOLOGY METHOD 06/29/2024 8:31 AM [facility] NRBC Absolute 0.00 <0.10 K/mcL LAB HEMETOLOGY METHOD 06/29/2024 8:31 AM [facility] Blood Venous blood specimen / Unknown Venipuncture / Unknown 06/29/2024 5:35 AM EST 06/29/2024 8:11 AM EST us Audi Luke MD LAB BLOOD ORDERABLES Final Resul t [facility] [address] [place] [address], documented in this encounter Visit Diagnoses Diagnosis Essential (primary) hypertension Unspecified essential hypertension Anemia, unspecified Chronic obstructive pulmonary disease, unspecified (CMS/[facility] V24, CMS/[facility] V28) documented in this encounter Care Teams Salesperson Women'S Dresses Relationship Specialty Start Date End Date Teofilo Moreno MD [address] [place] [phone] PCP - General Internal Medicine 07/01/24 documented as of this encounter
--- OUTSIDE RECORDS SUMMARY | 2025-06-10 14:36 | XMS_ITS | Encounter Summary ---
Author Organization [facility] Address [address] [place] [address] Care Team Providers Care Handstitching Machine Collar Feller Name Role Phone Teofilo Moreno MD Primary Care Provider Encounter Details Date Type Department Care Team (Late Contact Info) Description 06/19/2024 Lab Requisition [facility] - Main Lab [address] [facility] [place] [address] Audi Luke MD [address], [phone] Essential (primary) hypertension; Anemia, unspecified; [...] 2:15 PM EST Office Visit Endocrinology - [place] [address] [place] [phone] Gladys Sow PA [address] [place] [phone] 08/03/2025 3:00 PM EST Office Visit Nephrology - [place] [address] [place] [phone] Bharath Gonsalez MD [address] [place] [address] 08/17/2025 2:30 PM EST Office Visit Adult Medicine [address] [phone] Frantz Martinez PA [address] [place] [address] documented as of this encounter Procedures Procedure [...] LAB CHEMISTRY METHOD 06/22/2024 12:08 PM EST [facility] Blood Venous blood specimen / Unknown Venipuncture / Unknown 06/22/2024 7:03 AM EST 06/22/2024 10:15 AM EST us Audi Luke MD LAB BLOOD ORDERABLES Final Resul t [facility] [address] [place] [address], [place] [phone] * (ABNORMAL) Comprehensive metabolic panel (06/22/2024 7:03 AM EST) Sodium 143 133 - 145 mmol/L LAB CHEMISTRY METHOD 06/22/2024 12:08 PM [facility] Potassium 4.0 3.5 - 5.5 mmol/L LAB CHEMISTRY METHOD 06/22/2024 12:08 PM [facility] Chloride 105 96 - 110 mmol/L LAB CHEMISTRY METHOD 06/22/2024 12:08 PM [facility] CO2 32 21 - 32 mmol/L LAB CHEMISTRY METHOD 06/22/2024 12:08 PM [facility] Anion Gap 6 3 - 11 LAB CHEMISTRY METHOD 06/22/2024 12:08 PM [facility] Glucose 70 70 - 100 mg/dL LAB CHEMISTRY METHOD 06/22/2024 12:08 PM [facility] BUN 41(H) 5 - 25 mg/dL LAB CHEMISTRY METHOD 06/22/2024 12:08 PM [facility] Creatinine 1.78(H) 0.50 - 1.10 mg/dL LAB CHEMISTRY METHOD 06/22/2024 12:08 PM [facility] eGFR 28(L) >=60 mL/min/1. 73m2 LAB CHEMISTRY METHOD 06/22/2024 12:08 PM [facility] Comment:Calculation based on the Chronic Kidney Disease Epidemiology Collaboration (CKD-EPI) equation refit without adjustment for race. BUN/Creatinine Ratio 23.0 LAB CHEMISTRY METHOD 06/22/2024 12:08 PM [facility] Calcium 9.4 8.5 - 10.5 mg/dL LAB CHEMISTRY METHOD 06/22/2024 12:08 PM [facility] AST (SGOT) 23 10 - 42 unit/L LAB CHEMISTRY METHOD 06/22/2024 12:08 PM [facility] ALT (SGPT) 26 10 - 60 unit/L LAB CHEMISTRY METHOD 06/22/2024 12:08 PM [facility] Alkaline Phosphatase 71 42 - 121 unit/L LAB CHEMISTRY METHOD 06/22/2024 12:08 PM [facility] Total Protein 5.4(L) 6.0 - 8.0 g/dL LAB CHEMISTRY METHOD 06/22/2024 12:08 PM [facility] Albumin 2.8(L) 3.2 - 5.0 g/dL LAB CHEMISTRY METHOD 06/22/2024 12:08 PM [facility] Total Bilirubin 0.6 0.0 - 1.4 mg/dL LAB CHEMISTRY METHOD 06/22/2024 12:08 PM [facility] Blood Venous blood specimen / Unknown Venipuncture / Unknown 06/22/2024 7:03 AM EST 06/22/2024 10:15 AM EST us Audi Luke MD LAB BLOOD ORDERABLES Final Resul t [facility] [address] [place] [address], [place] [phone] * (ABNORMAL) Complete blood count (06/22/2024 7:03 AM EST) WBC 15.2(H) 4.8 - 10.8 K/[facility] LAB HEMETOLOGY METHOD 06/22/2024 10:[address] [facility] RBC 3.90 3.80 - 4.80 M/[facility] LAB HEMETOLOGY METHOD 06/22/2024 10:39 AM [facility] Hemoglobin 9.7(L) 11.5 - 16.0 g/dL LAB HEMETOLOGY METHOD 06/22/2024 10:39 AM [facility] Hematocrit 33.2(L) 35.0 - 47.0 % LAB HEMETOLOGY METHOD 06/22/2024 10:39 AM [facility] MCV 84.5 79.0 - 98.0 FL LAB HEMETOLOGY METHOD 06/22/2024 10:39 AM [facility] MCH 24.7(L) 27.0 - 32.0 pcg LAB HEMETOLOGY METHOD 06/22/2024 10:[address] [facility] MCHC 29.2(L) 32.0 - 37.0 g/dL LAB HEMETOLOGY METHOD 06/22/2024 10:39 AM [facility] RDW 21.4(H) 11.0 - 15.0 % LAB HEMETOLOGY METHOD 06/22/2024 10:39 AM [facility] Platelets 303 130 - 400 K/mcL LAB HEMETOLOGY METHOD 06/22/2024 10:[address] [facility] MPV 11.5(H) 7.0 - 11.0 FL LAB HEMETOLOGY METHOD 06/22/2024 10:39 AM [facility] NRBC 0.0 <1.0 % LAB HEMETOLOGY METHOD 06/22/2024 10:39 AM [facility] NRBC Absolute 0.00 <0.10 K/mcL LAB HEMETOLOGY METHOD 06/22/2024 10:39 AM [facility] Blood Venous blood specimen / Unknown Venipuncture / Unknown 06/22/2024 7:03 AM EST 06/22/2024 10:05 AM EST us Audi Luke MD LAB BLOOD ORDERABLES Final Resul t [facility] [address] [place] [address], documented in this encounter Visit Diagnoses Diagnosis Essential (primary) hypertension Unspecified essential hypertension Anemia, unspecified Chronic obstructive pulmonary disease, unspecified (CMS/[facility] V24, CMS/[facility] V28) documented in this encounter Care Teams Handstitching Machine Collar Feller Relationship Specialty Start Date End Date Teofilo Moreno MD [address] [place] [phone] PCP - General Internal Medicine 07/01/24 documented as of this encounter
--- OUTSIDE RECORDS SUMMARY | 2025-06-10 14:36 | XMS_ITS | Encounter Summary ---
Author Organization [facility] Address [address] [place] [address] Care Team Providers Care Insurance Office Manager Name Role Phone Teofilo Moreno MD Primary Care Provider [phone] Encounter Details Date Type Department Care Team (Late Contact Info) Description 07/10/2024 Lab Requisition [facility] - Main Lab [address] [facility] [place] [address] Audi Luke MD [address], [phone] Essential (primary) hypertension; Anemia, unspecified; [...] 2:15 PM EST Office Visit Endocrinology - [place] [address] [place] [phone] Gladys Sow PA [address] [place] [address] 08/03/2025 3:00 PM EST Office Visit Nephrology - [facility] [address] [place] [address] Bharath Gonsalez MD [address] [place] [address] 08/17/2025 2:30 PM EST Office Visit Adult Medicine [address] [phone] Frantz Martinez PA [address] [place] [address] documented as of this encounter Visit Diagnoses Diagnosis Essential (primary) hypertension Unspecified essential hypertension Anemia, unspecified Chronic obstructive pulmonary disease, unspecified (CMS/HCC V24, CMS/HCC V28) documented in this encounter Care Teams Insurance Office Manager Relationship Specialty Start Date End Date Teofilo Moreno MD [address] [place] [address] PCP - General Internal Medicine 07/01/24 documented as of this encounter
--- OUTSIDE RECORDS SUMMARY | 2025-06-10 14:36 | XMS_ITS | Encounter Summary ---
Author Organization [facility] Address [address] [place] [address] Care Team Providers Care Shell Molding Roller Blast Operator Name Role Phone Teofilo Moreno MD Primary Care Provider [phone] Encounter Details Date Type Department Care Team (Late Contact Info) Description 07/04/[address] [facility] - Main Lab [address] [facility] [place] [address] Audi Luke MD [address], [address] Essential (primary) hypertension; Anemia, unspecified; [...] 2:15 PM EST Office Visit Endocrinology - [place] [address] [place] [phone] Gladys Sow PA [address] [place] [address] 08/03/2025 3:00 PM EST Office Visit Nephrology - [facility] [address] [place] [address] Bharath Gonsalez MD [address] [place] [address] 08/17/2025 2:30 PM EST Office Visit Adult Medicine [address] [phone] Frantz Martinez PA [address] [place] [address] documented as of this encounter Visit Diagnoses Diagnosis Essential (primary) hypertension Unspecified essential hypertension Anemia, unspecified Chronic obstructive pulmonary disease, unspecified (CMS/HCC V24, CMS/HCC V28) documented in this encounter Care Teams Shell Molding Roller Blast Operator Relationship Specialty Start Date End Date Teofilo Moreno MD [address] [place] [address] PCP - General Internal Medicine 07/01/24 documented as of this encounter
--- OUTSIDE RECORDS SUMMARY | 2025-06-10 14:36 | XMS_ITS | Encounter Summary ---
Author Organization [facility] Address [address] [place] [address] Care Team Providers Care Lubrication Worker Name Role Phone Teofilo Moreno MD Primary Care Provider [phone] Encounter Details Date Type Department Care Team (Late Contact Info) Description 06/16/2024 Lab Requisition [facility] - Main Lab 299 [facility] [place] [address] Audi Luke MD [address] [place] [address], [phone] Cold autoimmune hemolytic anemia (CMS/HCC V24, [...] 2:15 PM EST Office Visit Endocrinology - [address] [phone] Gladys Sow PA [address] [place] [address] 08/03/2025 3:00 PM EST Office Visit Nephrology - [address] [phone] Bharath Gonsalez MD [address] [place] [address] 08/17/2025 2:30 PM EST Office Visit [facility] [place] - [address] [phone] Frantz Martinez PA [address] [place] [address] documented as of this encounter Procedures Procedure [...] LAB CHEMISTRY METHOD 06/16/2024 9:14 PM EST [facility] Mean Bld Glu Estim. 134 mg/dL LAB CHEMISTRY METHOD 06/16/2024 9:14 PM EST [facility] Blood Venous blood specimen / Unknown Venipuncture / Unknown 06/16/2024 7:12 AM EST 06/16/2024 9:01 AM EST us Audi Luke MD LAB BLOOD ORDERABLES Final Resul t [facility] [address] [place] [address], * (ABNORMAL) CBC auto differential (06/16/2024 7:12 AM EST) Pathologist [facility] WBC 20.9(H) 4.8 - 10.8 K/mcL LAB HEMETOLOGY METHOD 06/16/2024 10:38 AM EST [facility] RBC 4.20 3.80 - 4.80 M/mcL LAB HEMETOLOGY METHOD 06/16/2024 10:38 AM [facility] Hemoglobin 10.5(L) 11.5 - 16.0 g/dL LAB HEMETOLOGY METHOD 06/16/2024 10:38 AM [facility] Hematocrit 35.7 35.0 - 47.0 % LAB HEMETOLOGY METHOD 06/16/2024 10:38 AM [facility] MCV 84.4 79.0 - 98.0 FL LAB HEMETOLOGY METHOD 06/16/2024 10:38 AM [facility] MCH 24.8(L) 27.0 - 32.0 pcg LAB HEMETOLOGY METHOD 06/16/2024 10:38 AM [facility] MCHC 29.4(L) 32.0 - 37.0 g/dL LAB HEMETOLOGY METHOD 06/16/2024 10:38 AM [facility] RDW 21.1(H) 11.0 - 15.0 % LAB HEMETOLOGY METHOD 06/16/2024 10:38 AM [facility] Platelets 246 130 - 400 K/mcL LAB HEMETOLOGY METHOD 06/16/2024 10:38 AM [facility] MPV 11.9(H) 7.0 - 11.0 FL LAB HEMETOLOGY METHOD 06/16/2024 10:38 AM [facility] NRBC 0.0 <1.0 % LAB HEMETOLOGY METHOD 06/16/2024 10:38 AM [facility] NRBC Absolute 0.00 <0.10 K/mcL LAB HEMETOLOGY METHOD 06/16/2024 10:38 AM [facility] Neutrophils Relative 82.8 % LAB HEMETOLOGY METHOD 06/16/2024 10:38 AM [facility] Lymphocytes Relative 8.8 % LAB HEMETOLOGY METHOD 06/16/2024 10:38 AM [facility] Monocytes Relative 6.0 % LAB HEMETOLOGY METHOD 06/16/2024 10:38 AM EST [facility] Eosinophils Relative 0.9 % LAB HEMETOLOGY METHOD 06/16/2024 10:38 AM [facility] Basophils Relative 0.1 % LAB HEMETOLOGY METHOD 06/16/2024 10:38 AM [facility] Immature Granulocytes Relative 1.4 % LAB HEMETOLOGY METHOD 06/16/2024 10:38 AM [facility] Neutrophils Absolute 17.31(H) 1.50 - 7.00 K/mcL LAB HEMETOLOGY METHOD 06/16/2024 10:38 AM [facility] Lymphocytes Absolute 1.83 1.00 - 5.00 K/mcL LAB HEMETOLOGY METHOD 06/16/2024 10:38 AM [facility] Monocytes Absolute 1.25(H) 0.20 - 1.00 K/mcL LAB HEMETOLOGY METHOD 06/16/2024 10:38 AM [facility] Eosinophils Absolute 0.19 0.00 - 0.50 K/mcL LAB HEMETOLOGY METHOD 06/16/2024 10:38 AM [facility] Basophils Absolute 0.03 0.00 - 0.20 K/mcL LAB HEMETOLOGY METHOD 06/16/2024 10:38 AM [facility] Immature Granulocytes Absolute 0.29(H) 0.00 - 0.03 K/mcL LAB HEMETOLOGY METHOD 06/16/2024 10:38 AM [facility] Blood Venous blood specimen / Unknown Venipuncture / Unknown 06/16/2024 7:12 AM EST 06/16/2024 9:01 AM EST us Audi Luke MD LAB BLOOD ORDERABLES Final Resul t [facility] [address] [place] [address], [place] [phone] * (ABNORMAL) C-reactive protein (06/16/2024 7:12 AM EST) [facility] C-Reactive Protein 0.96(H) <=0.50 mg/dL LAB CHEMISTRY METHOD 06/16/2024 11:19 AM EST [facility] Blood Venous blood specimen / Unknown Venipuncture / Unknown 06/16/2024 7:12 AM EST 06/16/2024 9:01 AM EST us Audi Luke MD LAB BLOOD ORDERABLES Final Resul t [facility] [address] [place] [address], [place] [phone] * (ABNORMAL) Comprehensive metabolic panel (06/16/2024 7:12 AM EST) [facility] Sodium 141 133 - 145 mmol/L LAB CHEMISTRY METHOD 06/16/2024 11:19 AM [facility] Potassium 4.3 3.5 - 5.5 mmol/L LAB CHEMISTRY METHOD 06/16/2024 11:19 AM [facility] Chloride 103 96 - 110 mmol/L LAB CHEMISTRY METHOD 06/16/2024 11:19 AM [facility] CO2 31 21 - 32 mmol/L LAB CHEMISTRY METHOD 06/16/2024 11:19 AM [facility] Anion Gap 7 3 - 11 LAB CHEMISTRY METHOD 06/16/2024 11:19 AM [facility] Glucose 56(L) 70 - 100 mg/dL LAB CHEMISTRY METHOD 06/16/2024 11:19 AM [facility] BUN 40(H) 5 - 25 mg/dL LAB CHEMISTRY METHOD 06/16/2024 11:19 AM [facility] Creatinine 1.46(H) 0.50 - 1.10 mg/dL LAB CHEMISTRY METHOD 06/16/2024 11:19 AM [facility] eGFR 36(L) >=60 mL/min/1. 73m2 LAB CHEMISTRY METHOD 06/16/2024 11:19 AM [facility] Comment:Calculation based on the Chronic Kidney Disease Epidemiology Collaboration (CKD-EPI) equation refit without adjustment for race. BUN/Creatinine Ratio 27.4 LAB CHEMISTRY METHOD 06/16/2024 11:19 AM [facility] Calcium 10.0 8.5 - 10.5 mg/dL LAB CHEMISTRY METHOD 06/16/2024 11:19 AM [facility] AST (SGOT) 22 10 - 42 unit/L LAB CHEMISTRY METHOD 06/16/2024 11:19 AM [facility] ALT (SGPT) 26 10 - 60 unit/L LAB CHEMISTRY METHOD 06/16/2024 11:19 AM [facility] Alkaline Phosphatase 70 42 - 121 unit/L LAB CHEMISTRY METHOD 06/16/2024 11:19 AM [facility] Total Protein 5.6(L) 6.0 - 8.0 g/dL LAB CHEMISTRY METHOD 06/16/2024 11:19 AM [facility] Albumin 2.9(L) 3.2 - 5.0 g/dL LAB CHEMISTRY METHOD 06/16/2024 11:19 AM [facility] Total Bilirubin 0.5 0.0 - 1.4 mg/dL LAB CHEMISTRY METHOD 06/16/2024 11:19 AM [facility] Blood Venous blood specimen / Unknown Venipuncture / Unknown 06/16/2024 7:12 AM EST 06/16/2024 9:01 AM EST us Audi Luke MD LAB BLOOD ORDERABLES Final Resul t [facility] [address] [place] [address], [place] [phone] documented in this encounter Visit Diagnoses Diagnosis Cold autoimmune hemolytic anemia [place] [place] [facility] [place] Autoimmune hemolytic anemias Hyperkalemia Hyperpotassemia Heart failure, unspecified [place] [place] [facility] [place] Heart failure, unspecified Chronic obstructive pulmonary disease, unspecified ([facility] [place], [facility] V28) Chronic kidney disease, unspecified Type 2 diabetes mellitus without complications [place] [place], [facility] [place] Essential (primary) hypertension Unspecified essential hypertension documented in this encounter Care Teams Lubrication Worker Relationship Specialty Start Date End Date Teofilo Moreno MD [address] [place] [phone] PCP - General Internal Medicine 07/01/24 documented as of this encounter
--- OUTSIDE RECORDS SUMMARY | 2025-06-10 14:36 | XMS_ITS | Clinical Summary ---
Author Organization [facility] Address [address] [place] [phone] Phone Care Team Providers Care Aluminum Pool Installer Name Role Phone Teofilo Moreno MD Primary Care Provider [phone] Allergies Active Allergy Reactions Criticality Noted Date Comments Hiram Inhibitors 01/26/2019 Angioedema per cards note 11/04/18 Amlodipine Swelling 01/13/2014 Enalapril 05/01/2024 Enalapril Maleate 05/01/2024 Enalaprilat 07/18/2017 Other Reaction(s): Rash/Dermatitis Latex 04/09/2016 Nitrofurantoin Itching 11/04/2018 Pineapple 04/09/2016 Other Reaction(s): Hives/Urticaria Medications blood sugar diagnostic (FreeStyle Lite Strips) test strip USE TO TEST THREE TIMES A DAY 4 Active blood-glucose meter,continuo us (DEXCOM G7 [facility] [place] 1 Device by Does not apply route [...] to him via secure text. Pulmonary fibrosis ([facility] V24, [facility] V28) Leukocytosis 05/01/2024 Overview (05/01/2024): [facility] heme/onc HTN (hypertension) 05/01/2024 Overview (05/01/2024): Last Assessment & Plan: Regarding hypertension the patient most recently met with her roller cleaner. He suggested that he would avoid tight [...] once. Discussed plan with Dr. Gonsalez her roller cleaner whom she will be seeing next month. Orders: ECG 12 lead Severe obesity (BMI 35.0-39. 9) with comorbidity ([facility] V24, [facility] V28) 03/12/2022 Seborrheic dermatitis 09/07/2021 Post-inflammatory hyperpigmentation 09/07/2021 Overview (05/01/2024): Follows [facility]. Mitral valve regurgitation 12/14/2020 Overview (05/01/2024): Mitral valve regurgitation Microalbuminuria 02/25/2019 DM (diabetes mellitus), type 2 with renal complications ([facility] V24, [facility] V28) 02/25/2019 LBBB (left bundle branch block) [...] over signs of worsening symptoms. Echocardiogram from [id number] reveals the aortic stenosis appears to be [...] Osteopenia 05/30/2015 Overview (05/01/2024): Per Dr. Chilo Blevins, Prempro [id number], Reclast yearly since 201408/01/2018 Lumbar Spine T-score is +2.0 (SD relative to 20-29 y/o adult) Z-score is +4.5 (SD relative to age matched peers) This is normal by criteria defined by the WHO. 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, Follows at [facility] Hyperlipidemia 01/13/2014 Overview (05/01/2024): Last Assessment & [...] kidney disease) stage 4, GFR 15-29 ml/min ([facility] V24, [facility] V28) 03/06/2021 12/01/2024 Encounters Date Type Department Care Team Description 06/03/2025 1:35 PM EST Lab Draw Station - [address] [phone] Secondary hypertension; Heart failure with mildly reduced ejection fraction ([facility] V24, [facility] V28); Type 2 diabetes mellitus with diabetic microalbuminuria, unspecified whether fci insulin use ([facility] V24, [facility] V28); Hypomagnesemia 05/21/2025 1:10 PM EDT Office Visit [facility] [address] [place] [address] Joel Castano NP Nonrheumatic aortic [...] TUBAL LIGATION UPPER GASTROINTESTINAL ENDOSCOPY 12/2013 PROCEDURE: LA UPPER GI ENDOSCOPY PERFORMED; COMMENT: Dr Jennings, [...] transfer note Psoriasis 07/18/2017 DX:Psoriasis Pulmonary fibrosis ([facility] V24, [facility] V28) DX:Pulmonary fibrosis (HCC) Rheumatoid arthritis ([facility] V24, [facility] V28) 01/13/2014 DX:Rheumatoid arthritis (HCC ); COMMENT: Steroid dependent, [facility] Vitamin B 12 deficiency 07/18/2017 DX:Vitam in B 12 deficiency Diastolic dysfunction DX:Diastol ic dysfunction; COMMENT: mild, echo Aortic stenosis DX:Aortic stenos is Microalbuminuria 02/25/2019 DX:Microalbumin uria Type 2 diabetes mellitus wit h renal manifestations ([facility] V24, [facility] V28) 02/25/2019 DX:Type 2 diabetes mellitus with renal manifestations ([facility]) History of arm fracture 05/19/2018 DX:Histo ry of arm fracture; COMMENT: Fell 02/17/2014, Right elbow fracture. Sling used Confusion 08/04/2018 DX:Confusion LBBB (left bundle branch block) 11/04/2018 DX:LBBB (left bundle branch block) Hypomagnesemia 01/27/2018 DX:Hypomagnesemi a History of tobacco use DX:Histor y of tobacco use CKD (chronic kidney disease) stage 4, GFR 15-29 ml/min ([facility] V24, [facility] V28) 03/06/2021 DX:CKD (chronic kidney disea se) stage 4, GFR 15-29 ml/min ([facility]) Family History Medical History Relation Name Comments [...] 2:15 PM EST Office Visit Endocrinology [address] [phone] Gladys Sow PA [address] [place] [phone] 08/03/2025 3:00 PM EST Office Visit Nephrology - [address] [phone] Bharath Gonsalez MD [address] [facility] [address] [place] [phone] 08/17/2025 2:30 PM EST Office Visit Adult Medicine [address] [phone] Frantz Martinez PA [address] [place] [address] Health Maintenance Due Date Last Done Comments [...] diabetes mellitus with diabetic microalbuminuria, unspecified whether terminal block assembler insulin use (CMS/HCC V24, CMS/HCC V28) Hypomagnesemia BUN Routine 06/03/2025 1:42 PM EST Secondary hypertension Heart failure with mildly reduced ejection fraction (CMS/HCC V24, CMS/HCC V28) Type 2 diabetes mellitus with diabetic microalbuminuria, unspecified whether terminal block assembler insulin use (CMS/HCC V24, CMS/HCC V28) Hypomagnesemia ELECTROLYTE PANEL Routine 06/03/2025 1:4 2 PM EST Secondary hypertension Heart failure with mildly reduced ejection fraction (CMS/HCC V24, CMS/HCC V28) Type 2 diabetes mellitus with diabetic microalbuminuria, unspecified whether terminal block assembler insulin use (CMS/HCC V24, CMS/HCC V28) Hypomagnesemia PROTEIN AND CREATININE WITH RATIO, URINE Routine 06/03/2025 1:42 PM EST Secondary hypertension Heart failure with mildly reduced ejection fraction (CMS/HCC V24, CMS/HCC V28) Type 2 diabetes mellitus with diabetic microalbuminuria, unspecified whether terminal block assembler insulin use (CMS/HCC V24, CMS/HCC V28) Hypomagnesemia MICROALBUMIN CREATININE URINE RATIO Routine 02/09/2025 1:53 PM EDT Type 2 diabetes mellitus with diabetic microalbuminuria, unspecified whether terminal block assembler insulin use (CMS/HCC V24, CMS/HCC V28) LIPID PANEL WITH REFLEX TO DIRECT LDL Routine 02/09/2025 1:53 PM EDT Pure hypercholesterolemia HEMOGLOBIN A1C Routine 01/04/2025 4:17 PM EDT Diabetes mellitus type 2 with neurological manifestations ([facility] V24, [facility] V28) DIABETIC RETINOPATHY SCREENING Routine 03/26/2024 9:38 AM EDT DXA BONE DENSITY STUDY 1+ SITS AXIAL SKEL Routine 02/08/2022 2:57 PM EDT Encounter for screening for osteoporosis from Last 3 Months or Most Recently Relevant to Health Maintenance Results * (ABNORMAL) Protein and creatinine with ratio, urine (06/03/2025 1:42 PM EST) Protein, Urine 103 mg/dL LAB CHEMISTRY METHOD 06/03/2025 5:00 PM EST [facility] Prot/Creat, Ur 0.96(H) <=0.20 mg/mg creat LAB CHEMISTRY METHOD 06/03/2025 5:00 PM EST [facility] Creatinine, Urine 107.0 mg/dL LAB CHEMISTRY METHOD 06/03/2025 5:00 PM EST [facility] Urine Urine specimen obtained by clean catch procedure / Unknown Non-blood Collection / Unknown 06/03/2025 1:42 PM EST 06/03/2025 1:42 PM EST us Bharath Gonsalez MD LAB URINE ORDERABLES Final Resu lt [facility] [address] [place] [address], [place] [phone] * (ABNORMAL) Creatinine (06/03/2025 1:42 PM EST) Creatinine 1.49(H) 0.50 - 1.10 mg/dL LAB CHEMISTRY METHOD 06/03/2025 4:48 PM EST [facility] eGFR 35(L) >=60 mL/min/1. 73m2 LAB CHEMISTRY METHOD 06/03/2025 4:48 PM EST [facility] Comment:Calculation based on the Chronic Kidney Disease Epidemiology Collaboration (CKD-EPI) equation refit without adjustment for race. Blood Venous blood specimen / Unknown Venipuncture / Unknown 06/03/2025 1:42 PM EST 06/03/2025 1:42 PM EST us Bharath Gonsalez MD LAB BLOOD ORDERABLES Final Resu lt Performing Organization Address City/[facility]/ZIP Co de Phone Number [facility] [address] [place] [address], [place] [phone] * (ABNORMAL) BUN (06/03/2025 1:42 PM EST) BUN 32(H) 5 - 25 mg/dL LAB CHEMISTRY METHOD 06/03/2025 4:48 PM EST [facility] Blood Venous blood specimen / Unknown Venipuncture / Unknown 06/03/2025 1:42 PM EST 06/03/2025 1:42 PM EST us Bharath Gonsalez MD LAB BLOOD ORDERABLES Final Resu lt Performing Organization Address City/[facility]/ZIP Co de Phone Number [facility] [address] [place] [address], [place] [phone] * Electrolyte panel (06/03/2025 1:42 PM EST) Sodium 138 133 - 145 mmol/L LAB CHEMISTRY METHOD 06/03/2025 4:48 PM EST [facility] Potassium 4.5 3.5 - 5.5 mmol/L LAB CHEMISTRY METHOD 06/03/2025 4:48 PM [facility] Chloride 105 96 - 110 mmol/L LAB CHEMISTRY METHOD 06/03/2025 4:48 PM [facility] CO2 30 21 - 32 mmol/L LAB CHEMISTRY METHOD 06/03/2025 4:48 PM [facility] Anion Gap 3 3 - 11 LAB CHEMISTRY METHOD 06/03/2025 4:48 PM EST [facility] Blood Venous blood specimen / Unknown Venipuncture / Unknown 06/03/2025 1:42 PM EST 06/03/2025 1:42 PM EST us Bharath Gonsalez MD LAB BLOOD ORDERABLES Final Resu lt [facility] [address] [place] [address], [place] [phone] * Lipid panel with reflex to direct LDL (02/09/2025 1:53 PM EDT) Cholesterol 172 0 - 200 mg/dL LAB CHEMISTRY METHOD 02/09/2025 5:48 PM EDT [facility] Triglycerides 84 0 - 150 mg/dL LAB CHEMISTRY METHOD 02/09/2025 5:48 PM EDT [facility] HDL 92 >=40 mg/dL LAB CHEMISTRY METHOD 02/09/2025 5:48 PM EDT [facility] LDL Calculated 63 0 - 100 mg/dL LAB CHEMISTRY METHOD 02/09/2025 5:48 PM EDT [facility] VLDL Cholesterol Nikolas 16.8 mg/dL LAB CHEMISTRY METHOD 02/09/2025 5:48 PM EDT [facility] Non HDL Chol. (LDL+VLDL) 80 <145 mg/dL LAB CHEMISTRY METHOD 02/09/2025 5:48 PM EDT [facility] Chol/HDL Ratio 1.9 0.0 - 4.4 LAB CHEMISTRY METHOD 02/09/2025 5:48 PM EDT [facility] Blood Venous blood specimen / Unknown Venipuncture / Unknown 02/09/2025 1:53 PM EDT 02/09/2025 1:53 PM EDT us Teofilo Moreno MD LAB BLOOD ORDERABLES Final Resu lt Performing Organization Address [facility]/ZIP Co de Phone Number [facility] [address] [place] [address], * (ABNORMAL) Microalbumin creatinine urine ratio (02/09/2025 1:53 PM EDT) Creatinine, Urine 80.0 mg/dL LAB CHEMISTRY METHOD 02/09/2025 6:12 PM EDT [facility] Microalb, Ur 113.0(H) 0.0 - 29.0 mg/L LAB CHEMISTRY METHOD 02/09/2025 6:12 PM EDT [facility] Microalb/Crea t Ratio 141(H) <30 mg/g creat LAB CHEMISTRY METHOD 02/09/2025 6:12 PM EDT [facility] Urine Urine specimen obtained by clean catch procedure / Unknown Non-blood Collection / Unknown 02/09/2025 1:53 PM EDT 02/09/2025 1:53 PM EDT Teofilo Moreno MD LAB URINE ORDERABLES Final Resu lt Performing Organization Address [facility] Co de Phone Number [facility] [address] [place] [address], [place] [phone] * Hemoglobin A1c (01/04/2025 4:17 PM EDT) Hemoglobin A1C 6.3 <6.5 % LAB CHEMISTRY METHOD 01/04/2025 9:45 PM EDT [facility] Mean Bld Glu Estim. 134 mg/dL LAB CHEMISTRY METHOD 01/04/2025 9:45 PM EDT [facility] Blood Venous blood specimen / Unknown Venipuncture / Unknown 01/04/2025 4:17 PM EDT 01/04/2025 4:17 PM EDT Gladys WILLIS LAB BLOOD ORDERABLES Final Result [facility] [address] [place] [address], * Diabetic Retinopathy Screening (03/26/2024 9:38 AM [...] should be classified as having osteoporosis. The [facility] Department of Internal Medicine recommends using National [...] Almanzar should beclassified as having osteoporosis. The [facility] Department of Internal Medicine recommendsusing National Osteoporosis [...] Most Recently Relevant to Health Maintenance Insurance [facility] Member Subscriber Plan / Payer (Ef fective 2010-Present) Name:Leann Almanzar Relation to Subscriber:Self Name:Leann Almanzar Payer ID:[id number] Group ID:[id number] Type:Not on file Address: [place] [address] [place] [address] Care Teams Aluminum Pool Installer Relationship Specialty Start Date End Date Teofilo Moreno MD [address] [place] [phone] PCP - General Internal Medicine 07/01/24
--- OUTSIDE RECORDS SUMMARY | 2025-06-10 14:36 | XMS_ITS | Clinical Summary ---
Author Organization [facility] Address [address] [place] [address] Care Team Providers Care Construction Economist Name Role Phone Unavailable Primary Care Provider [...] Plan of Treatment Not on file Insurance [place]
--- OUTSIDE RECORDS SUMMARY | 2025-06-10 14:36 | XMS_ITS | Data Portability ---
Author Organization [facility], Main Office Address [address] [facility], [address] [place] [address] Care Team Providers Care Cutter Tender Name Role Phone WAGNER RAMIREZ - 3RD [...] By Organization Details Last Modified Time 06/16/2024 458680 medicines to avoid with kidney disease: care instructions [email or web address] Not available 06/16/2024 12:15:35 Reason for Referral None Reported. Problems Name Problem SNOMED Code Status Onset Date Resolution Date Notes Provider Name and Address Organization Details Recorded Time Asthenia 66864505 Active 2023 MARIBEL BLANCHARD NP [address] [facility], [address], [place], [address], [facility] 4 11:18:54 Chronic obstructiv e pulmonary disease 24137268 Active 2023 MARIBEL BLANCHARD NP [address] [facility], [address], [place], [address], [facility] 4 11:19:06 Asthma 449325238 Active 2023 MARIBEL BLANCHARD NP [address] [facility], [address], [place], [address], [facility] 4 11:19:15 Hypertensi ve disorder 91648920 Active 2023 MARIBEL BLANCHARD NP [address], [address], [place], [address], [facility] 4 11:19:23 Insulin treated type 2 diabetes mellitus 140013038 Active 2023 MARIBEL BLANCHARD NP [address], [address], [place], [address], [facility] 4 11:19:52 Heart failure with normal ejection fraction 451018122 Active 2023 MARIBEL BLANCHARD NP [address], [address], [place], [address], [facility] 4 11:20:11 Severe pulmonary hypertensi on 368346574 Active 2023 MARIBEL BLANCHARD NP [address] [facility], [address], [place], [address], [facility] 4 11:20:24 Rheumatoid arthritis 57018869 Active 2023 on chronic prednisone MARIBEL BLANCHARD NP [address] [facility], [address], [place], [address], [facility] 4 11:21:07 Chronic anemia 078045953 Active 2023 followed by Hematology , Dr. Roddy BLANCHARD NP [address] , [address], [place], [address], [facility] 4 11:23:40 Hyperlipid emia 31011863 Active 2023 MARIBEL BLANCHARD NP [address] [facility], [address], [place], [address], [facility] 4 11:21:27 Chronic kidney disease stage 3 690596334 Active 2023 MARIBEL BLANCHARD NP [address], [place], [address], [facility] 4 11:30:57 Acute respirator y failure 13024411 Active 2023 MARIBEL BLANCHRAD NP [address], [address], [place], [address], [facility] 4 11:31:20 Gastroesop hageal reflux disease without esophagiti s 489740589 Active 2023 MARIBEL BLANCHARD NP [address] [facility], [address], [place], [address], [facility] 4 12:13:02 Aspirin therapy finding 163123437 Active 2023 MARIBEL BLANCHARD NP [address], [address], [place], [address], [facility] 4 12:13:26 Hypomagnes emia 886100212 Active 2023 MARIBEL BLANCHARD NP [address] [facility], [address], [place], [address], [facility] 4 12:13:44 Problem Notes None recorded. Medical Equipment None Reported. Allergies Allergen ID Allergen Name Allergen Category Reaction Reaction Severity Criticality Documentation Date Start Date Code Code System Note Provider Name and Address Organization Details Recorded Time 83509 Lasix medicatio n Not available Not available Not available 06/16/2024 68736 1 RxNorm MARIBEL BLANCHARD NP [address] [facility], [address], [place], [address], [facility] 4 11:18:20 14725 Vasotec medicatio n Not available Not available Not available 06/16/2024 59069 1 RxNorm MARIBEL BLANCHARD NP [address] [facility], [address], [place], [address], [facility] 4 11:18:06 36792 pineapple extract food Not available Not available Not available 06/16/2024 24939 74 RxNorm MARIBEL BLANCHARD NP [address] [facility], [address], [place], [address], [facility] 4 11:18:12 55834 latex environme nt,medica tion Not available Not available Not available 06/16/2024 91201 91 RxNorm MARIBEL BLANCHARD NP [address] [facility], [address], [place], [address], [facility] 4 11:18:26 Vitals Date Recorded Heart rate Respiratory rate Body temperature Oxygen saturation Oxygen saturation in Arterial blood by Pulse oximetry Systolic And Diastolic Provider Name and Address Organization Details Last Updated DateTime 4 80 /min 18 /min 98.2 [degF] 97 % 97 % 135/72 mm[Hg] MARIBEL BLANCHARD NP [address] [facility], [facility] [address], [place], [address], [facility] 4 11:12:07 Date Recorded Body height Body mass index (BMI) Body weight Heart rate Respiratory rate Body temperature Oxygen saturation Oxygen saturation in Arterial blood by Pulse oximetry Systolic And Diastolic Provider Name and Address Organization Details Last Updated DateTime 4 152.4 cm 30.5 kg/m2 61019.4 1 g 60 /min 18 /min 98 [degF] 97 % 97 % 144/69 mm[Hg] Tracie Arango MD [address] [place] [address], [place], [address], [facility] 4 17:29:35 Date Recorded Body height Body mass index (BMI) Body weight Heart rate Respiratory rate Body temperature Oxygen saturation Oxygen saturation in Arterial blood by Pulse oximetry Systolic And Diastolic Provider Name and Address Organization Details Last Updated DateTime 4 152.4 cm 30 kg/m2 40339.7 9 g 68 /min 16 /min 97.2 [degF] 98 % 98 % 132/67 mm[Hg] Tracie Arango MD [address] [place] [address], [facility] [address], [place], [address], [facility] 4 13:49:38 Social History Question Answer Notes LastModified by Organizat ion Details LastModified Time Tobacco Smoking Status Former Smoker quit 1984 Tracie Arango MD [address] [place] [address], [facility] [address], [place], [address], [facility] 06/19/2024 19:56:29 Do You Have An Advance Directive? Yes [email or web address] Information not available 06/19/2024 What Is Your Code Status? Full Code No Dialysis [email or web address] Information not available 06/16/2024 Where Do You Live? [facility] Lives With Son And Grand Son, Son Is Disabled In Wheelchair, Doesn't Talk. Grandson Is In His 40s. [email or web address] Information not available 06/19/2024 Legal Guardian? No Informati on not available 06/19/2024 Do You Have A Medical Power Of Physical Therapist Clinic Director? Yes Has HCP [email or web address] Information not available 06/16/2024 What Was The [...] use any illicit or recreational drugs? No [email or web address] Information not available 06/16/2024 Do you or have you ever used any other forms of tobacco or nicotine? No [email or web address] Information not available 06/16/2024 What is your level of alcohol consumption? None [email or web address] Information not available 06/16/2024 Mental Status None recorded. Family History Relationship Description Onset Age of this Age Resolved Age Notes LastModified by Organization Details LastModified Time Mother Harmful pattern of use of alcohol [email or web address] Not available 2023 11:52:31 Medical History No medical history recorded. Gynecological HistoryNo gynecological history recorded. Obstetrics History GPAL:G 0 P 0 0 0 0 Immunizations Vaccine Type Date Status Note Provider Nam e and Address Organization Details Recorded Time Tdap 3 completed Chloé Mar [facility] 06/16/2024 14:03:38 Td(adult) unspecified formulation 4 completed Chloé Mar [facility] 06/16/2024 14:03:59 Td(adult) unspecified formulation 7 completed Chloé Mar [facility] 06/16/2024 14:04:08 pneumococcal polysaccharide PPV23 6 completed Chloé Mar [facility] 06/16/2024 14:04:29 pneumococcal polysaccharide PPV23 9 [facility] 14:04:39 influenza, unspecified formulation 2 [facility] 14:04:55 influenza, unspecified formulation 4 [facility] 14:05:03 Past Encounters Encounter ID Performer Location Encounter Start Date Encounter Closed Date Diagnosis/Indication Diagnosis SNOMED-CT Code Diagnosis ICD10 Code Diagnosis IMO Codes Diagnosis Note [id number] MARIBEL BLANCHARD NP [facility] [address] [facility] [place] [address] 06/16/2024 11:11:14 06/17/2024 08:48:38 Asthenia 55251582 R53.1 Deconditio jose due to recent hospitaliz ation and acute illnessPT OT eval and tx.Goal is to return home. Chronic ob structive pulmonary disease 80006052 J44.9 And asthmaSee above.Cont inue:Slow prednisone taper - 5 mg qd in May, then 2.5 mg qd in Jun., then stopPRN Robitussin DMPRN albuterol nebs and MDIMonitor resp. status. Acute resp iratory failure 37149128 J96.00 Multifacto rial - COPD, CHF, and [...] Heart fail ure with normal ejection fraction 879987525 I50.33 See above.Cont inue lasix 20 mg qdMonitor VS, LS, sats, CP status, labs for decompensa tion Chronic anemia 870473349 D64.9 Hgb 6.3 [place] [facility] [place] [facility] [place]. Patino non compliant [...] Roddy brandt concerns Severe pul monary hypertension 496938594 I27.20 CV meds as above Insulin tr eated type 2 diabetes mellitus 352319501 Z79.4 Continue:L antus 16 units dailyNovol og SSI with mealsMonit or BS and adjust meds prn Hypertensive disorder 38 416372 I10 Continue home meds:Verap celia ER 240 mg qdLosartan 25 mg qdHydralaz ine 10 mg tidAdded lasix 20 mg qd in the hospitalTr end VS daily, BMP q Saturday, adjust meds prn Chronic ki dney disease stage 3 778863748 N18.30 Bump in Creat, with IV diuresis in hosp., now improved, back to baseline (1.46)Now on lasix 20 mg qd, losartan resumed upon d/cMaintai n hydrationB MP q Saturday to monitor Rheumatoid arthritis 698 54957 M06.9 No joint pain at present except chronic left elbow.On daily prednisone for COPD, suspect she is getting some benefit from this.APAP available prnMonitor Hyperlipidemia 26890986 E78.5 Continue pravastati n 20 mg qd Aspirin th erapy finding 084739089 Z79.82 On ASA 81 mg qd, unsure as to why, ? benefit in 83 yo elder, but will defer decision to PCP Hypomagnesemia 846720418 E83.42 On Mag Ox 400 mg bidCheck Mg level q Saturday, adjust as needed [id number] Tracie Arango MD [address] [address] 06/19/2024 17:02:55 2024 11:50:08 Asthenia 31345554 R53.1 Very deconditio jose.Needs PT/OT for strengthen ing, balance, gait training, safety and function.C ontinue fall precaution s.Monitor for safety. Acute resp iratory failure 94243565 J96.00 As above. Chronic ob structive pulmonary disease 88975341 J43.8 COPD/asthm a crossover syndrome.C ontinue slow prednisone taper 5 mg qd until 06/28 then 2.5 mg qd x 1 month and then d/c., she has been on prednisone chronicall y for RA, but tapering off.PRN Robitussin DMPRN albuterol nebs and MDIMonitor resp. status. Heart fail ure with normal ejection fraction 196501555 I50.33 Appears euvolemic. Continue meds as above.Abby tor resp. status, fluid status, wts and labs. Hypertensive disorder 38 633279 I10 In good control since here.Shay nue verapamil ER 240 mg qd, losartan 25 mg qd, hydralazin e 10 mg TID, and lasix 20 mg qd.Monitor BP and labs Chronic anemia 230732012 D64.89 Hgb 6.3 upon [place] [facility] [place] [facility]., Dr. Patino non [...] heme as planned. Severe pul monary hypertension 377922967 I27.29 Med and f/u as above. Insulin tr eated type 2 diabetes mellitus 125942795 E11.22 In good control since here.Shay nue Lantus 16U qd and SSI.Monito r fingerstic ks TID and HgA1C q 3 months. Chronic ki dney disease stage 3 687480468 N18.32 Back to baseline.C ontinue to avoid nephrotoxi c meds as able.Monit or labs.Renal f/u as planned. Rheumatoid arthritis 698 99610 M06.89 Stable at this time.Shay nue prednisone taper as above and APAP 650 mg q 4 hrs prn.Monito r sxs. Hyperlipidemia 74448570 E78.49 Continue pravastati n 20 mg qd and ASA 81 mg qd.Monitor labs as outpt. Hypomagnesemia 524004967 E83.42 Continue Mag Ox 400 mg BID.Monito r Mg weekly. [id number] Tracie Arango MD [address] [address] 06/30/2024 13:45:24 07/01/2024 10:43:59 Chronic obstructive pulmonary disease 70547430 J43.8 COPD/asthm a crossover syndrome.C ontinue slow prednisone taper 2.5 mg qd x 1 month (end date 07/28) and then d/c., she has been on prednisone chronicall y for RA, but tapering off.Contin ue albuterol nebs/I prn for sxs.F/U with PCP Asthenia 37759350 R53.1 Much improved.C an continue PT/OT at home for further strengthen ing, balance, safety and function.F /U with PCP Chronic anemia 975731148 D64.89 Stable since here.Sl. drop yesterdayC ontinue Fe 325 mg BID with meals along with Vit C 500 mg qd for absorption .Continue colace qd to prevent constipati on.Monitor labs as outpt.F/U with heme as planned. Hypertensive disorder 38 671017 I10 Has been in good control while here.Shay nue verapamil ER 240 mg qd, losartan 25 mg qd, hydralazin e 10 mg TID, and lasix 20 mg qd.F/U with PCP as outpt. Heart fail ure with normal ejection fraction 147102028 I50.33 Continues to appear euvolemic. Continue meds as above.F/U as outpt. Severe pul monary hypertension 601916628 I27.29 Med and f/u as above. Acute resp iratory failure 19697135 J96.00 As above. Insulin tr eated type 2 diabetes mellitus 770174040 E11.22 In good control since here.Shay nue Lantus 16U qd and SSI.F/U as outpt. Chronic ki dney disease stage 3 034835334 N18.32 Remains at baseline.C ontinue to avoid nephrotoxi c meds as able.Monit or labs.Renal and PCP f/u as planned. Rheumatoid arthritis 698 65325 M06.89 Stable at this time.Shay nue prednisone taper as above and APAP 650 mg q 4 hrs prn.F/U with rheum and PCP as outpt. Hyperlipidemia 92338820 E78.49 Continue pravastati n 20 mg qd and ASA 81 mg qd.Monitor labs as outpt. Hypomagnesemia 499036354 E83.42 Remains WNL on current supplement .Continue [...] Merida Member ID Guarantor Name 06/30/2024 1 [facility] - DOS ON OR AFTER 2022 - MEDICARE ADVANTAGE [place] (MEDICARE REPLACEMENT/AD VANTAGE - PPO) Leann Almanzar [id number] Leann Almanzar Notes Date Note Type Note Provider Name and Address Organization Details Recorded Time 4 text/html Leann is seen today for initial intake.She is an 83 yo lady, admitted to [facility]24 [place] [facility] [place] and [place] after a brief hospitalization due to COPD exacerbation. She presented [place] [facility] [place] with 3 days of [...] RA on chronic prednisone, chronic anemia, HLD, [id number]: full code, no dialysis MARIBEL BLANCHARD NP [address] [facility], [address], [place], [address], [facility] [employer] 06/16/2024 12:16:06 4 text/html This is an 83 yo woman who is here for rehab after an acute hospitalization for a COPD exacerbation and severe anemia.She presented to [place] [facility] [place] on [place]06 with worsening [...] function worsening.Echocardiogram showed EF of 55-60% with [id number] aortic valve stenosis, small loculated pericardial effusion overlying the left ventricle, abnormal diastolic function. Weaned to room air and started on low-dose Lasix She was transferred here on 06/15.Since here she has been working with rehab and improving.I see her with a kyrgyz speaking staff member.She says she is feeling better and getting some strength back. Her PMH includes HTN, asthma/COPD crossover, AODM, CHF pEF, severe pulmonary HTN, CKD stage 3, anemia, HLD, and RA on chronic prednisone. Tracie Arango MD [address] [facility], [address], [place], [address], [facility] 06/30/2024 13:43:36 4 text/html I am seeing this 83 yo woman today in anticipation fo rd/c later today.She was admitted on 06/15 after a hospitalization for COPD exacerbation and severe anemia. She presented to the [facility] [place] on [place]/06 with worsening [...] on chronic prednisone. Tracie Arango MD [address] [facility], [address], [place], [address], [facility] 06/30/2024 14:32:06 OBGyn Episode No OBEpisode recorded.
--- OUTSIDE RECORDS SUMMARY | 2025-06-10 14:36 | XMS_ITS | Encounter Summary ---
Author Organization [facility] Address [address] [place] [address] Care Team Providers Care Lease Administrator Name Role Phone Teofilo Moreno MD Primary Care Provider Encounter Details Date Type Department Care Team (Late Contact Info) Description 12/11/2024 Billing Patient Not Present Adult Medicine [address] [phone] Teofilo Moreno MD [address] [place] [address] Social History Tobacco Use Types Packs/Day Years [...] Description 07/27/2025 2:15 PM EST Office Visit [address] [phone] Gladys Sow PA [address] [place] [address] 08/03/2025 3:00 PM EST Office Visit Nephrology - [place] [address] [place] [address] Bharath Gonsalez MD [address] [place] [address] 08/17/2025 2:30 PM EST Office Visit Adult Medicine [address] [phone] Frantz Martinez PA [address] [place] [address] documented as of this encounter Visit Diagnoses Not on filedocumented in this encounter Care Teams Lease Administrator Relationship Specialty Start Date End Date Teofilo Moreno MD [address] [place] [address] PCP - General Internal Medicine 07/01/24 documented as of this encounter
--- OUTSIDE RECORDS SUMMARY | 2025-06-10 14:36 | XMS_ITS | Patient Health Record ---
Author Organization [facility] Address [address] [place] [address] Care Team Providers Care Specimen Boss Name Role Phone Warren Gallardo Primary Care Provider Titi Romero Unavailable [phone] Rochelle Garcia Unavailable Unavailable Allergies Allergen (clinical [...] times a day Active Vitamin D (Ergocalciferol) 98980 UNIT 1 capsule Orally Active Methotrexate 1 [...] Status Risk Notes Problem Gastroesophageal reflux disease (854329604) GERD (gastroesophag eal reflux disease) (530.81) Active confirmed Problem Iron deficiency anemia (58851107) Anemia, iron deficiency (280.9) Active confirmed Plan Of Treatment Future Test Test Name Order Date UPPER GI ENDOSCOPY 12/01/2013 COLONOSCOPY 12/01/2013 Insurance Providers Payer Name Payer Address Payer Phone Subscriber Number Group Number Insured Name Patient Relationship to Insured Coverage Start Date Coverage End Date [facility] [address] [place] [phone] [id number] ESTRELLA WELLINGTON Self - patient is the insured Medical (General) History Medical History History ICD Code NIDDM asthma Rheumatoid arthritis Denies HI,CVA,renal disease Neg. screening colonoscopy with Dr. Hua in 2007 HTN GERD Arthritis Iron deficiency anemia-sees Dr. Garcia--12/2013 she had a neg. colonnoscopy and EGD--duodenal bx neg for celiac disease, small HH Surgical History Surgery Date(Month/Year) CCY BTL
== END 2025-06-10 11:56 | disposition home or self-care (01) ==
PROVIDERS: PCP Internal Medicine; Visit Provider Internal Medicine
DX: J98.4 Other disorders of lung (principal); R05.9 Cough, unspecified; J44.89 Other specified chronic obstructive pulmonary disease
CPT/HCPCS: 99213

== ENCOUNTER → 2025-06-10 11:23 | Outpatient (BNVA) | payer OTHER, SELFPAY | PROVIDERS: PCP Internal Medicine; Visit Provider Internal Medicine | DX: R91.8 Other nonspecific abnormal finding of lung field (principal); J44.89 Other specified chronic obstructive pulmonary disease; R05.9 Cough, unspecified | CPT/HCPCS: 99212 ==

== ENCOUNTER 2025-06-15 13:54 | Outpatient (REF) | payer OTHER, SELFPAY ==
[2025-06-15 14:13] LABS: MANUAL DIFF FLAG NO
[2025-06-15 14:29] LABS: Hematocrit 38.2 % (37.0-47.0); Hemoglobin 11.8 g/dl (12.0-16.0); Imm Gran Abs Auto 0.07 X10*3/uL (0.00-0.03); Imm Gran Pct Auto 0.5 % (0.0-0.4); Lymphocytes Absolute Auto 1.8 X10*3/uL (1.2-4.9); Mean Corpuscular HGB Conc 30.9 g/dl (31.0-35.0); Mean Corpuscular Hemoglobin 29.1 pg (27.0-33.0); Mean Corpuscular Volume 94.1 fL (80.0-98.0); NRBC Abs Auto 0.000 X10*3/uL (0.0-0.012); NRBC Pct Auto 0.0 /100WBC (0.0-0.2); Platelet Count 322 X10*3/uL (160-400); Red Blood Count 4.06 X10*6/uL (4.20-5.50); White Blood Count 13.9 X10*3/uL (4.8-10.8)
[2025-06-15 14:51] LABS: Alanine Aminotransferase 9 U/L (0-31); Aspartate Amino Transferase 21 U/L (5-31); Estimated Glomerular Filt Rate 34
--- OUTSIDE RECORDS SUMMARY | 2025-06-16 07:43 | XMS_ITS | Data Portability ---
Author Organization [employer] [facility], [facility] Address [address] [place] [address] Care Team Providers Care Shop Assistant Name Role Phone [facility] Referring Provider [phone] Assessment Encounter Date Assessment Date Assessment LastModified [...] She will follow up with her PCP. [email or web address] Not available 01/19/2022 15:12:38 05/31/2023 05/31/2023 I provided real -time medical direction via phone for this encounter, and was available for additional phone based assistance as needed. I have reviewed and agree with the Assessment and Plan as documented by the Environmental Engineering Professor. Patient given the opportunity to ask questions. [...] particularly fever chills lightheadedness altered mental status [facility] Not available 05/31/2023 21:11:54 Plan of Treatment Reminders Order Date Submit Date Provider Last Modified By Organization Details Last Modified Time Details Appointments None recorded. Lab rapid SARS CoV 2 Ag, QL [place], respiratory specimen [address], [address] [place] [address] 3 21:11:56 rapid flu (A+B) [address], [address] [place] [address] 21:11:55 Referral None recorded. Procedures None recorded. Surgeries None recorded. Imaging None recorded. Medication Orders None recorded. Patient TargetsNo targets recorded. Patient InstructionsNo instructions recorded. Reason for Referral None Reported. Results Created Date Observation Date Name Description Value Unit Range Abnormal Flag Note LastModifiedBy Organization Detail LastModifiedTime 05/31/2005/31/2023 rapid flu (A+B) Flu negati ve Not Available [facility] ed [address] [place] [address], [address] [place] [address] 05/31/2023 21:09:13 05/31/20 23 05/31/2023 rapid SARS CoV 2 Ag, QL IA, respi rator y speci men rapid SARS CoV 2 Ag, QL IA, respiratory specimen negati ve Not Available [facility] ed [address] [place] [address], [address] [place] [address] 05/31/2023 21:09:10 Result Notes None recorded. Medical Equipment None Reported. Allergies Allergen ID Allergen Name Allergen Category Reaction Reaction Severity Criticality Documentation Date Start Date Code Code System Note Provider Name and Address Organization Details Recorded Time 7994 latex environme nt,medica tion Not available Not available Not available 05/26/2024 04041 91 RxNorm Not Available [facility] - production 03:41:14 Medications Name Sig Start Date Stop Date Status Note LastModified by Organization Details LastModified Time comfrt touch pad alc prep eaches USE DIRECTED THREE TIMES DAILY TO CLEAN AREA PRIOR TO TESTING active Not Available Not Available No t Available comfrt touch pad alc prep active Not Available Not Available Not Available comfort tch mis lanc 30g eaches [...] % 98.2 [degF] 138/74 mm[Hg] Not Available [facility] 3 17:13:23 Date Recorded Body weight Respiratory rate Body height Oxygen saturation Oxygen saturation in Arterial blood by Pulse oximetry Heart rate Body temperature Systolic And Diastolic Provider Name and Address Organization Details Last Updated DateTime 2 81792.7 6 g 18 /min 144.78 cm 95 % 95 % 58 /min 98 [degF] 160/77 mm[Hg] Not Available [facility] 2 15:07:37 Date Recorded Respiratory rate Heart rate Body temperature Body height Oxygen saturation Oxygen saturation in Arterial blood by Pulse oximetry Body weight Systolic And Diastolic Provider Name and Address Organization Details Last Updated DateTime 3 18 /min 79 /min 98.5 [degF] 149.86 cm 94 % 94 % 71615.6 96 g 118/69 mm[Hg] Not Available [facility] 3 21:08:44 Social History None recorded. Functional [...] [id number] Antelmo Otoole MD Main - [facility] [address] [place] [phone] 01/19/2022 15:07:34 01/19/2022 15:13:29 [id number] Gal Bashir MD Main - [facility] [address] [place] [address] [phone] 01/11/2023 17:13:22 01/12/2023 23:09:33 [id number] Lissa Roman MD Main - [facility] [address] [place] [phone] 05/31/2023 21:08:41 06/04/2023 10:48:10 Upper respiratory infection 97353108 J06.9 Health Concerns Section Related Observation LastModified by Organization Detai ls LastModified Time None Recorded Concern Status LastModified by Organization Details LastModified Time None Recorded Advance Directives Directive None Recorded Payers Insurance Date Sequence Insurance Name Policy Number Policy Merida Covered Member ID Merida Member ID Guarantor Name 11/27/2024 1 [facility] - DOS PRIOR TO 2022 - DUAL ELIGIBLE (MEDICARE REPLACEMENT/AD VANTAGE - HMO) Leann Almanzar [id number] Leann Almanzar 11/27/2024 1 [facility] - DOS ON OR AFTER 2022 - DUAL ELIGIBLE - [facility] OPTIONS AND ONE CARE (MEDICARE REPLACEMENT/AD VANTAGE - HMO) Leann Jenelle [id number] Leann Almanzar Notes Date Note Type Note Provider Name and Address Organization Details Recorded Time 01/19/2022 text/html ROS as noted in the HPI HPI: Call transferred to CR[facility] from [facility]. Mbr's granddaughter/ROOFING APPLICATOR, Rafaela Ward on the phone. Reports member [...] ..................... ..................... ..................... ..................... ..................... ..................... ............... Environmental Engineering Professor Note: Sent to a call for a [...] Lung sounds: clear bilaterally; (Standing) BP:158/69, P:61; [facility] advises pt to move slowly, rest and monitor symptoms to see if vertigo gets worse. If symptoms persist or get worse follow up with PCP or seek medical attention. Red flags discussed. Pt and family have no further questions. ..................... ..................... ..................... ..................... ..................... ..................... ............... Disposition: Fulfilled Antelmo Otoole MD [address] [place] [address],[address], [place], [address], [employer] 01/19/2022 15:13:27 01/11/2023 text/html ROS as noted [...] ..................... ..................... ..................... ..................... ..................... ..................... ............... Environmental Engineering Professor Note From Gustavo Alvarado: Dispatched to the [...] ............... Disposition: Fulfilled Gal Bashir MD [address] [facility],[address], [place], [phone], [employer] 08/07/2023 13:58:00 05/31/2023 text/html CRC Nursing Assessment: [...] ..................... ..................... ..................... ..................... ..................... ..................... ............... Environmental Engineering Professor Note From Leda Lal: Sent to a call for a pt complaining of productive cough x 3 weeks. [facility] arrives on scene, pt is alert and oriented, airway is patent. Pt primarily speaks Peruvian, and family member serves as division roadmaster. Pt complains of productive cough with yellow [...] ............... Disposition: Fulfilled Lissa Roman MD [address] [facility],[address], [place], [address], [employer] 05/31/2023 21:12:31 OBGyn Episode No OBEpisode recorded.
--- OUTSIDE RECORDS SUMMARY | 2025-06-16 07:43 | XMS_ITS | Encounter Summary ---
Author Organization [facility] Address [address] [place] [address] Care Team Providers Care Executive Chef Assistant Name Role Phone Teofilo Moreno MD Primary Care Provider [phone] Encounter Details Date Type Department Care Team (Late Contact Info) Description 06/26/2024 Lab Requisition [facility] - Main Lab [address] [facility] [place] [address] Audi Luke MD [address], [phone] Essential (primary) hypertension; Anemia, unspecified; [...] 2:15 PM EST Office Visit Endocrinology - [place] [address] [place] [phone] Gladys Sow PA [address] [place] [phone] 08/03/2025 3:00 PM EST Office Visit Nephrology - [place] [address] [place], [place] [phone] Bharath Gonsalez MD [address] [place] [address] 08/17/2025 2:30 PM EST Office Visit Adult Medicine [address] [phone] Frantz Martinez PA [address] [place] [address] documented as of this encounter Procedures Procedure [...] LAB CHEMISTRY METHOD 06/29/2024 9:09 AM EST [facility] Blood Venous blood specimen / Unknown Venipuncture / Unknown 06/29/2024 5:35 AM EST 06/29/2024 8:11 AM EST us Audi Luke MD LAB BLOOD ORDERABLES Final Resul t [facility] [address] [place] [address], [place] [phone] * (ABNORMAL) Comprehensive metabolic panel (06/29/2024 5:35 AM EST) Sodium 145 133 - 145 mmol/L LAB CHEMISTRY METHOD 06/29/2024 9:18 AM [facility] Potassium 3.9 3.5 - 5.5 mmol/L LAB CHEMISTRY METHOD 06/29/2024 9:18 AM [facility] Chloride 107 96 - 110 mmol/L LAB CHEMISTRY METHOD 06/29/2024 9:18 AM [facility] CO2 32 21 - 32 mmol/L LAB CHEMISTRY METHOD 06/29/2024 9:18 AM [facility] Anion Gap 6 3 - 11 LAB CHEMISTRY METHOD 06/29/2024 9:18 AM [facility] Glucose 44(L) 70 - 100 mg/dL LAB CHEMISTRY METHOD 06/29/2024 9:18 AM [facility] BUN 39(H) 5 - 25 mg/dL LAB CHEMISTRY METHOD 06/29/2024 9:18 AM [facility] Creatinine 1.61(H) 0.50 - 1.10 mg/dL LAB CHEMISTRY METHOD 06/29/2024 9:18 AM [facility] eGFR 32(L) >=60 mL/min/1. 73m2 LAB CHEMISTRY METHOD 06/29/2024 9:18 AM [facility] Comment:Calculation based on the Chronic Kidney Disease Epidemiology Collaboration (CKD-EPI) equation refit without adjustment for race. BUN/Creatinine Ratio 24.2 LAB CHEMISTRY METHOD 06/29/2024 9:18 AM [facility] Calcium 9.7 8.5 - 10.5 mg/dL LAB CHEMISTRY METHOD 06/29/2024 9:18 AM [facility] AST (SGOT) 18 10 - 42 unit/L LAB CHEMISTRY METHOD 06/29/2024 9:18 AM [facility] ALT (SGPT) 18 10 - 60 unit/L LAB CHEMISTRY METHOD 06/29/2024 9:18 AM [facility] Alkaline Phosphatase 66 42 - 121 unit/L LAB CHEMISTRY METHOD 06/29/2024 9:18 AM [facility] Total Protein 5.3(L) 6.0 - 8.0 g/dL LAB CHEMISTRY METHOD 06/29/2024 9:18 AM [facility] Albumin 2.9(L) 3.2 - 5.0 g/dL LAB CHEMISTRY METHOD 06/29/2024 9:18 AM [facility] Total Bilirubin 0.5 0.0 - 1.4 mg/dL LAB CHEMISTRY METHOD 06/29/2024 9:18 AM [facility] Blood Venous blood specimen / Unknown Venipuncture / Unknown 06/29/2024 5:35 AM EST 06/29/2024 8:11 AM EST us Audi Luke MD LAB BLOOD ORDERABLES Final Resul t [facility] [address] [place] [address], * (ABNORMAL) Complete blood count (06/29/2024 5:35 AM EST) WBC 12.0(H) 4.8 - 10.8 K/mcL LAB HEMETOLOGY METHOD 06/29/2024 8:31 AM [facility] RBC 3.70(L) 3.80 - 4.80 M/mcL LAB HEMETOLOGY METHOD 06/29/2024 8:31 AM [facility] Hemoglobin 9.4(L) 11.5 - 16.0 g/dL LAB HEMETOLOGY METHOD 06/29/2024 8:31 AM [facility] Hematocrit 31.1(L) 35.0 - 47.0 % LAB HEMETOLOGY METHOD 06/29/2024 8:31 AM EST [facility] MCV 84.3 79.0 - 98.0 FL LAB HEMETOLOGY METHOD 06/29/2024 8:31 AM [facility] MCH 25.5(L) 27.0 - 32.0 pcg LAB HEMETOLOGY METHOD 06/29/2024 8:31 AM EST [facility] MCHC 30.2(L) 32.0 - 37.0 g/dL LAB HEMETOLOGY METHOD 06/29/2024 8:31 AM [facility] RDW 21.8(H) 11.0 - 15.0 % LAB HEMETOLOGY METHOD 06/29/2024 8:31 AM [facility] Platelets 265 130 - 400 K/mcL LAB HEMETOLOGY METHOD 06/29/2024 8:31 AM EST [facility] MPV 11.3(H) 7.0 - 11.0 FL LAB HEMETOLOGY METHOD 06/29/2024 8:31 AM EST [facility] NRBC 0.0 <1.0 % LAB HEMETOLOGY METHOD 06/29/2024 8:31 AM [facility] NRBC Absolute 0.00 <0.10 K/mcL LAB HEMETOLOGY METHOD 06/29/2024 8:31 AM [facility] Blood Venous blood specimen / Unknown Venipuncture / Unknown 06/29/2024 5:35 AM EST 06/29/2024 8:11 AM EST us Audi Luke MD LAB BLOOD ORDERABLES Final Resul t [facility] [address] [place] [address], documented in this encounter Visit Diagnoses Diagnosis Essential (primary) hypertension Unspecified essential hypertension Anemia, unspecified Chronic obstructive pulmonary disease, unspecified ([facility] V24, [facility] V28) documented in this encounter Care Teams Executive Chef Assistant Relationship Specialty Start Date End Date Teofilo Moreno MD [address] [place] [phone] PCP - General Internal Medicine 07/01/24 documented as of this encounter
--- OUTSIDE RECORDS SUMMARY | 2025-06-16 07:43 | XMS_ITS | Encounter Summary ---
Author Organization [facility] Address [address] [place] [address] Care Team Providers Care Co Director Name Role Phone Teofilo Moreno MD Primary Care Provider Encounter Details Date Type Department Care Team (Late Contact Info) Description 06/19/2024 Lab Requisition [facility] - Main Lab [address] [facility] [employer] [place] [address] Audi Luke MD [address], [phone] Essential (primary) hypertension; Anemia, unspecified; [...] 2:15 PM EST Office Visit Endocrinology - [place] [address] [place] [phone] Gladys Sow PA [address] [place] [address] 08/03/2025 3:00 PM EST Office Visit Nephrology - [place] [address] [place] [address] Bharath Gonsalez MD [address] [place] [address] 08/17/2025 2:30 PM EST Office Visit Adult Medicine [address] [phone] Frantz Martinez PA [address] [place] [address] documented as of this encounter Procedures Procedure [...] LAB CHEMISTRY METHOD 06/22/2024 12:08 PM EST [facility] Blood Venous blood specimen / Unknown Venipuncture / Unknown 06/22/2024 7:03 AM EST 06/22/2024 10:15 AM EST us Audi Luke MD LAB BLOOD ORDERABLES Final Resul t [facility] [address] [place] [address], [place] [phone] * (ABNORMAL) Comprehensive metabolic panel (06/22/2024 7:03 AM EST) Sodium 143 133 - 145 mmol/L LAB CHEMISTRY METHOD 06/22/2024 12:08 PM [facility] Potassium 4.0 3.5 - 5.5 mmol/L LAB CHEMISTRY METHOD 06/22/2024 12:08 PM [facility] Chloride 105 96 - 110 mmol/L LAB CHEMISTRY METHOD 06/22/2024 12:08 PM [facility] CO2 32 21 - 32 mmol/L LAB CHEMISTRY METHOD 06/22/2024 12:08 PM [facility] Anion Gap 6 3 - 11 LAB CHEMISTRY METHOD 06/22/2024 12:08 PM [facility] Glucose 70 70 - 100 mg/dL LAB CHEMISTRY METHOD 06/22/2024 12:08 PM [facility] BUN 41(H) 5 - 25 mg/dL LAB CHEMISTRY METHOD 06/22/2024 12:08 PM [facility] Creatinine 1.78(H) 0.50 - 1.10 mg/dL LAB CHEMISTRY METHOD 06/22/2024 12:08 PM [facility] eGFR 28(L) >=60 mL/min/1. 73m2 LAB CHEMISTRY METHOD 06/22/2024 12:08 PM [facility] Comment:Calculation based on the Chronic Kidney Disease Epidemiology Collaboration (CKD-EPI) equation refit without adjustment for race. BUN/Creatinine Ratio 23.0 LAB CHEMISTRY METHOD 06/22/2024 12:08 PM [facility] Calcium 9.4 8.5 - 10.5 mg/dL LAB CHEMISTRY METHOD 06/22/2024 12:08 PM [facility] AST (SGOT) 23 10 - 42 unit/L LAB CHEMISTRY METHOD 06/22/2024 12:08 PM [facility] ALT (SGPT) 26 10 - 60 unit/L LAB CHEMISTRY METHOD 06/22/2024 12:08 PM [facility] Alkaline Phosphatase 71 42 - 121 unit/L LAB CHEMISTRY METHOD 06/22/2024 12:08 PM [facility] Total Protein 5.4(L) 6.0 - 8.0 g/dL LAB CHEMISTRY METHOD 06/22/2024 12:08 PM [facility] Albumin 2.8(L) 3.2 - 5.0 g/dL LAB CHEMISTRY METHOD 06/22/2024 12:08 PM [facility] Total Bilirubin 0.6 0.0 - 1.4 mg/dL LAB CHEMISTRY METHOD 06/22/2024 12:08 PM [facility] Blood Venous blood specimen / Unknown Venipuncture / Unknown 06/22/2024 7:03 AM EST 06/22/2024 10:15 AM EST us Audi Luke MD LAB BLOOD ORDERABLES Final Resul t [facility] [address] [place] [address], [place] [phone] * (ABNORMAL) Complete blood count (06/22/2024 7:03 AM EST) WBC 15.2(H) 4.8 - 10.8 K/[facility] LAB HEMETOLOGY METHOD 06/22/2024 10:39 AM EST [facility] RBC 3.90 3.80 - 4.80 M/[facility] LAB HEMETOLOGY METHOD 06/22/2024 10:39 AM [facility] Hemoglobin 9.7(L) 11.5 - 16.0 g/dL LAB HEMETOLOGY METHOD 06/22/2024 10:39 AM [facility] Hematocrit 33.2(L) 35.0 - 47.0 % LAB HEMETOLOGY METHOD 06/22/2024 10:39 AM [facility] MCV 84.5 79.0 - 98.0 FL LAB HEMETOLOGY METHOD 06/22/2024 10:39 AM [facility] MCH 24.7(L) 27.0 - 32.0 pcg LAB HEMETOLOGY METHOD 06/22/2024 10:39 AM EST [facility] MCHC 29.2(L) 32.0 - 37.0 g/dL LAB HEMETOLOGY METHOD 06/22/2024 10:39 AM [facility] RDW 21.4(H) 11.0 - 15.0 % LAB HEMETOLOGY METHOD 06/22/2024 10:39 AM [facility] Platelets 303 130 - 400 K/mcL LAB HEMETOLOGY METHOD 06/22/2024 10:39 AM EST [facility] MPV 11.5(H) 7.0 - 11.0 FL LAB HEMETOLOGY METHOD 06/22/2024 10:39 AM [facility] NRBC 0.0 <1.0 % LAB HEMETOLOGY METHOD 06/22/2024 10:39 AM [facility] NRBC Absolute 0.00 <0.10 K/mcL LAB HEMETOLOGY METHOD 06/22/2024 10:39 AM [facility] Blood Venous blood specimen / Unknown Venipuncture / Unknown 06/22/2024 7:03 AM EST 06/22/2024 10:05 AM EST us Audi Luke MD LAB BLOOD ORDERABLES Final Resul t [facility] [address] [place] [address], documented in this encounter Visit Diagnoses Diagnosis Essential (primary) hypertension Unspecified essential hypertension Anemia, unspecified Chronic obstructive pulmonary disease, unspecified (CMS/[facility] V24, CMS/[facility] V28) documented in this encounter Care Teams Co Director Relationship Specialty Start Date End Date Teofilo Moreno MD [address] [place] [phone] PCP - General Internal Medicine 07/01/24 documented as of this encounter
--- OUTSIDE RECORDS SUMMARY | 2025-06-16 07:44 | XMS_ITS | Clinical Summary ---
Author Organization [facility] [address] [facility] Address [address] [place] [phone] Phone Care Team Providers Care Senior Gis Analyst Name Role Phone Teofilo Moreno MD Primary Care Provider [phone] Allergies Active Allergy Reactions Criticality Noted Date Comments Hiram Inhibitors 01/26/2019 Angioedema per cards note 11/04/18 Amlodipine Swelling 01/13/2014 Enalapril 05/01/2024 Enalapril Maleate 05/01/2024 Enalaprilat 07/18/2017 Other Reaction(s): Rash/Dermatitis Latex 04/09/2016 Nitrofurantoin Itching 11/04/2018 Pineapple 04/09/2016 Other Reaction(s): Hives/Urticaria Medications blood sugar diagnostic (FreeStyle Lite Strips) test strip USE TO TEST THREE TIMES A DAY 4 Active blood-glucose meter,continuo us (DEXCOM G7 CORD TIRE BUILDER [facility] [place] 1 Device by Does not apply route [...] to him via secure text. Pulmonary fibrosis ([facility] V24, [facility] V28) Leukocytosis 05/01/2024 Overview (05/01/2024): [facility] [place] heme/onc HTN (hypertension) 05/01/2024 Overview (05/01/2024): Last Assessment & Plan: Regarding hypertension the patient most recently met with her research methods instructor. He suggested that he would avoid tight [...] once. Discussed plan with Dr. Gonsalez her research methods instructor whom she will be seeing next month. Orders: ECG 12 lead Severe obesity (BMI 35.0-39. 9) with comorbidity ([facility] V24, [facility] V28) 03/12/2022 Seborrheic dermatitis 09/07/2021 Post-inflammatory hyperpigmentation 09/07/2021 Overview (05/01/2024): Follows [facility]. Mitral valve regurgitation 12/14/2020 Overview (05/01/2024): Mitral valve regurgitation Microalbuminuria 02/25/2019 DM (diabetes mellitus), type 2 with renal complications ([facility] V24, [facility] V28) 02/25/2019 LBBB (left bundle branch block) [...] over signs of worsening symptoms. Echocardiogram from [id number] reveals the aortic stenosis appears to be [...] Overview (05/01/2024): Per Dr. Chilo Blevins, Prempro [id number], Reclast yearly since 201408/01/2018 Lumbar Spine T-score is +2.0 (SD relative to 20-29 y/o adult) Z-score is +4.5 (SD relative to age matched peers) This is normal by criteria defined by the WHO. 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, Follows at [facility] Hyperlipidemia 01/13/2014 Overview (05/01/2024): Last Assessment & [...] kidney disease) stage 4, GFR 15-29 ml/min ([facility] V24, [facility] V28) 03/06/2021 12/01/2024 Encounters Date Type Department Care Team Description 06/03/2025 1:35 PM EST Lab Draw Station - [address] [phone] Secondary hypertension; Heart failure with mildly reduced ejection fraction ([facility] V24, [facility] V28); Type 2 diabetes mellitus with diabetic microalbuminuria, unspecified whether detention insulin use ([facility] V24, [facility] V28); Hypomagnesemia 05/21/2025 1:10 PM EDT Office Visit [facility] [address] [place] [address] Joel Castano NP Nonrheumatic aortic [...] TUBAL LIGATION UPPER GASTROINTESTINAL ENDOSCOPY 12/2013 PROCEDURE: AL UPPER GI ENDOSCOPY PERFORMED; COMMENT: Dr Jennings, [...] transfer note Psoriasis 07/18/2017 DX:Psoriasis Pulmonary fibrosis ([facility] V24, [facility] V28) DX:Pulmonary fibrosis (HCC) Rheumatoid arthritis ([facility] V24, [facility] V28) 01/13/2014 DX:Rheumatoid arthritis (HCC ); COMMENT: Steroid dependent, [facility]s [facility] Vitamin B 12 deficiency 07/18/2017 DX:Vitam in B 12 deficiency Diastolic dysfunction DX:Diastol ic dysfunction; COMMENT: mild, echo Aortic stenosis DX:Aortic stenos is Microalbuminuria 02/25/2019 DX:Microalbumin uria Type 2 diabetes mellitus wit h renal manifestations ([facility] V24, [facility] V28) 02/25/2019 DX:Type 2 diabetes mellitus with renal manifestations ([facility]) History of arm fracture 05/19/2018 DX:Histo ry of arm fracture; COMMENT: Fell 02/17/2014, Right elbow fracture. Sling used Confusion 08/04/2018 DX:Confusion LBBB (left bundle branch block) 11/04/2018 DX:LBBB (left bundle branch block) Hypomagnesemia 01/27/2018 DX:Hypomagnesemi a History of tobacco use DX:Histor y of tobacco use CKD (chronic kidney disease) stage 4, GFR 15-29 ml/min ([facility] V24, [facility] V28) 03/06/2021 DX:CKD (chronic kidney disea se) stage 4, GFR 15-29 ml/min ([facility]) Family History Medical History Relation Name Comments [...] 07/27/2025 2:15 PM EST Office Visit Endocrinology [address] [phone] Gladys Sow PA [address] [place] [address] 08/03/2025 3:00 PM EST Office Visit Nephrology - [address] [phone] Bharath Gonsalez MD [address] [facility] [address] [place] [address] 08/17/2025 2:30 PM EST Office Visit Adult Medicine [address] [phone] Frantz Martinez PA [address] [place] [address] Health Maintenance Due Date Last Done Comments [...] diabetes mellitus with diabetic microalbuminuria, unspecified whether continuous churn buttermaker insulin use (CMS/HCC V24, CMS/HCC V28) Hypomagnesemia BUN Routine 06/03/2025 1:42 PM EST Secondary hypertension Heart failure with mildly reduced ejection fraction (CMS/HCC V24, CMS/HCC V28) Type 2 diabetes mellitus with diabetic microalbuminuria, unspecified whether continuous churn buttermaker insulin use (CMS/HCC V24, CMS/HCC V28) Hypomagnesemia ELECTROLYTE PANEL Routine 06/03/2025 1:4 2 PM EST Secondary hypertension Heart failure with mildly reduced ejection fraction (CMS/HCC V24, CMS/HCC V28) Type 2 diabetes mellitus with diabetic microalbuminuria, unspecified whether continuous churn buttermaker insulin use (CMS/HCC V24, CMS/HCC V28) Hypomagnesemia PROTEIN AND CREATININE WITH RATIO, URINE Routine 06/03/2025 1:42 PM EST Secondary hypertension Heart failure with mildly reduced ejection fraction (CMS/HCC V24, CMS/HCC V28) Type 2 diabetes mellitus with diabetic microalbuminuria, unspecified whether continuous churn buttermaker insulin use (CMS/HCC V24, CMS/HCC V28) Hypomagnesemia MICROALBUMIN CREATININE URINE RATIO Routine 02/09/2025 1:53 PM EDT Type 2 diabetes mellitus with diabetic microalbuminuria, unspecified whether continuous churn buttermaker insulin use (CMS/HCC V24, CMS/HCC V28) LIPID PANEL WITH REFLEX TO DIRECT LDL Routine 02/09/2025 1:53 PM EDT Pure hypercholesterolemia HEMOGLOBIN A1C Routine 01/04/2025 4:17 PM EDT Diabetes mellitus type 2 with neurological manifestations ([facility] V24, [facility] V28) DIABETIC RETINOPATHY SCREENING Routine 03/26/2024 9:38 AM EDT DXA BONE DENSITY STUDY 1+ SITS AXIAL SKEL Routine 02/08/2022 2:57 PM EDT Encounter for screening for osteoporosis from Last 3 Months or Most Recently Relevant to Health Maintenance Results * (ABNORMAL) Protein and creatinine with ratio, urine (06/03/2025 1:42 PM EST) Protein, Urine 103 mg/dL LAB CHEMISTRY METHOD 06/03/2025 5:00 PM EST [facility] Prot/Creat, Ur 0.96(H) <=0.20 mg/mg creat LAB CHEMISTRY METHOD 06/03/2025 5:00 PM EST [facility] Creatinine, Urine 107.0 mg/dL LAB CHEMISTRY METHOD 06/03/2025 5:00 PM EST [facility] Urine Urine specimen obtained by clean catch procedure / Unknown Non-blood Collection / Unknown 06/03/2025 1:42 PM EST 06/03/2025 1:42 PM EST us Bharath Gonsalez MD LAB URINE ORDERABLES Final Resu lt [facility] [address] [place] [address], [place] [phone] * (ABNORMAL) Creatinine (06/03/2025 1:42 PM EST) Creatinine 1.49(H) 0.50 - 1.10 mg/dL LAB CHEMISTRY METHOD 06/03/2025 4:48 PM EST [facility] eGFR 35(L) >=60 mL/min/1. 73m2 LAB CHEMISTRY METHOD 06/03/2025 4:48 PM EST [facility] Comment:Calculation based on the Chronic Kidney Disease Epidemiology Collaboration (CKD-EPI) equation refit without adjustment for race. Blood Venous blood specimen / Unknown Venipuncture / Unknown 06/03/2025 1:42 PM EST 06/03/2025 1:42 PM EST us Bharath Gonsalez MD LAB BLOOD ORDERABLES Final Resu lt Performing Organization Address City/[facility]/ZIP Co de Phone Number [facility] [address] [place] [address], [place] [phone] * (ABNORMAL) BUN (06/03/2025 1:42 PM EST) BUN 32(H) 5 - 25 mg/dL LAB CHEMISTRY METHOD 06/03/2025 4:48 PM EST [facility] Blood Venous blood specimen / Unknown Venipuncture / Unknown 06/03/2025 1:42 PM EST 06/03/2025 1:42 PM EST us Bharath Gonsalez MD LAB BLOOD ORDERABLES Final Resu lt Performing Organization Address City/[facility]/ZIP Co de Phone Number [facility] [address] [place] [address], [place] [phone] * Electrolyte panel (06/03/2025 1:42 PM EST) Sodium 138 133 - 145 mmol/L LAB CHEMISTRY METHOD 06/03/2025 4:48 PM EST [facility] Potassium 4.5 3.5 - 5.5 mmol/L LAB CHEMISTRY METHOD 06/03/2025 4:48 PM [facility] Chloride 105 96 - 110 mmol/L LAB CHEMISTRY METHOD 06/03/2025 4:48 PM [facility] CO2 30 21 - 32 mmol/L LAB CHEMISTRY METHOD 06/03/2025 4:48 PM [facility] Anion Gap 3 3 - 11 LAB CHEMISTRY METHOD 06/03/2025 4:48 PM EST [facility] Blood Venous blood specimen / Unknown Venipuncture / Unknown 06/03/2025 1:42 PM EST 06/03/2025 1:42 PM EST us Bharath Gonsalez MD LAB BLOOD ORDERABLES Final Resu lt [facility] [address] [place] [address], [place] [phone] * Lipid panel with reflex to direct LDL (02/09/2025 1:53 PM EDT) Cholesterol 172 0 - 200 mg/dL LAB CHEMISTRY METHOD 02/09/2025 5:48 PM EDT [facility] Triglycerides 84 0 - 150 mg/dL LAB CHEMISTRY METHOD 02/09/2025 5:48 PM EDT [facility] HDL 92 >=40 mg/dL LAB CHEMISTRY METHOD 02/09/2025 5:48 PM EDT [facility] LDL Calculated 63 0 - 100 mg/dL LAB CHEMISTRY METHOD 02/09/2025 5:48 PM EDT [facility] VLDL Cholesterol Nikolas 16.8 mg/dL LAB CHEMISTRY METHOD 02/09/2025 5:48 PM EDT [facility] Non HDL Chol. (LDL+VLDL) 80 <145 mg/dL LAB CHEMISTRY METHOD 02/09/2025 5:48 PM EDT [facility] Chol/HDL Ratio 1.9 0.0 - 4.4 LAB CHEMISTRY METHOD 02/09/2025 5:48 PM EDT [facility] Blood Venous blood specimen / Unknown Venipuncture / Unknown 02/09/2025 1:53 PM EDT 02/09/2025 1:53 PM EDT us Teofilo Moreno MD LAB BLOOD ORDERABLES Final Resu lt Performing Organization Address [facility]/ZIP Co de Phone Number [facility] [address] [place] [address], * (ABNORMAL) Microalbumin creatinine urine ratio (02/09/2025 1:53 PM EDT) Creatinine, Urine 80.0 mg/dL LAB CHEMISTRY METHOD 02/09/2025 6:12 PM EDT [facility] Microalb, Ur 113.0(H) 0.0 - 29.0 mg/L LAB CHEMISTRY METHOD 02/09/2025 6:12 PM EDT [facility] Microalb/Crea t Ratio 141(H) <30 mg/g creat LAB CHEMISTRY METHOD 02/09/2025 6:12 PM EDT [facility] Urine Urine specimen obtained by clean catch procedure / Unknown Non-blood Collection / Unknown 02/09/2025 1:53 PM EDT 02/09/2025 1:53 PM EDT Teofilo Moreno MD LAB URINE ORDERABLES Final Resu lt Performing Organization Address [facility] Co de Phone Number [facility] [address] [place] [address], [place] [phone] * Hemoglobin A1c (01/04/2025 4:17 PM EDT) Hemoglobin A1C 6.3 <6.5 % LAB CHEMISTRY METHOD 01/04/2025 9:45 PM EDT [facility] Mean Bld Glu Estim. 134 mg/dL LAB CHEMISTRY METHOD 01/04/2025 9:45 PM EDT [facility] Blood Venous blood specimen / Unknown Venipuncture / Unknown 01/04/2025 4:17 PM EDT 01/04/2025 4:17 PM EDT Gladys WILLIS LAB BLOOD ORDERABLES Final Result [facility] [address] [place] [address], * Diabetic Retinopathy Screening (03/26/2024 9:38 AM [...] should be classified as having osteoporosis. [facility] Department of Internal Medicine recommends using [...] Almanzar should beclassified as having osteoporosis. [facility] Department of Internal Medicine recommendsusing National [...] Most Recently Relevant to Health Maintenance Insurance [facility] Member Subscriber Plan / Payer (Ef fective 2010-Present) Name:Leann Almanzar Relation to Subscriber:Self Name:Leann Almanzar Payer ID:[id number] Group ID:[id number] Type:Not on file Address: [place] [address] [place] [phone] Care Teams Senior Gis Analyst Relationship Specialty Start Date End Date Teofilo Moreno MD [address] [place] [phone] PCP - General Internal Medicine 07/01/24
--- OUTSIDE RECORDS SUMMARY | 2025-06-16 07:44 | XMS_ITS | Encounter Summary ---
Author Organization [facility] Address [address] [place] [address] Care Team Providers Care Reducing Machine Operator Name Role Phone Teofilo Moreno MD Primary Care Provider [phone] Encounter Details Date Type Department Care Team (Late Contact Info) Description 06/16/2024 Lab Requisition [facility] - Main Lab [address] [facility] [place] [address] Audi Luke MD [address] [place] [address], [phone] Cold autoimmune hemolytic anemia (CMS/HCC V24, [...] 2:15 PM EST Office Visit Endocrinology - [address] [phone] Gladys Sow PA [address] [place] [address] 08/03/2025 3:00 PM EST Office Visit Nephrology - [address] [phone] Bharath Gonsalez MD [address] [place] [address] [place] [address] 08/17/2025 2:30 PM EST Office Visit Adult Medicine [place] - [address] [phone] Frantz Martinez PA [address] [place] [address] documented as of this encounter Procedures Procedure [...] LAB CHEMISTRY METHOD 06/16/2024 9:14 PM EST [facility] Mean Bld Glu Estim. 134 mg/dL LAB CHEMISTRY METHOD 06/16/2024 9:14 PM EST [facility] Blood Venous blood specimen / Unknown Venipuncture / Unknown 06/16/2024 7:12 AM EST 06/16/2024 9:01 AM EST us Audi Luke MD LAB BLOOD ORDERABLES Final Resul t [facility] [address] [place] [address], * (ABNORMAL) CBC auto differential (06/16/2024 7:12 AM EST) Pathologist [facility] WBC 20.9(H) 4.8 - 10.8 K/mcL LAB HEMETOLOGY METHOD 06/16/2024 10:38 AM EST [facility] RBC 4.20 3.80 - 4.80 M/mcL LAB HEMETOLOGY METHOD 06/16/2024 10:38 AM [facility] Hemoglobin 10.5(L) 11.5 - 16.0 g/dL LAB HEMETOLOGY METHOD 06/16/2024 10:38 AM [facility] Hematocrit 35.7 35.0 - 47.0 % LAB HEMETOLOGY METHOD 06/16/2024 10:38 AM [facility] MCV 84.4 79.0 - 98.0 FL LAB HEMETOLOGY METHOD 06/16/2024 10:38 AM [facility] MCH 24.8(L) 27.0 - 32.0 pcg LAB HEMETOLOGY METHOD 06/16/2024 10:38 AM [facility] MCHC 29.4(L) 32.0 - 37.0 g/dL LAB HEMETOLOGY METHOD 06/16/2024 10:38 AM [facility] RDW 21.1(H) 11.0 - 15.0 % LAB HEMETOLOGY METHOD 06/16/2024 10:38 AM [facility] Platelets 246 130 - 400 K/mcL LAB HEMETOLOGY METHOD 06/16/2024 10:38 AM [facility] MPV 11.9(H) 7.0 - 11.0 FL LAB HEMETOLOGY METHOD 06/16/2024 10:38 AM [facility] NRBC 0.0 <1.0 % LAB HEMETOLOGY METHOD 06/16/2024 10:38 AM [facility] NRBC Absolute 0.00 <0.10 K/mcL LAB HEMETOLOGY METHOD 06/16/2024 10:38 AM [facility] Neutrophils Relative 82.8 % LAB HEMETOLOGY METHOD 06/16/2024 10:38 AM [facility] Lymphocytes Relative 8.8 % LAB HEMETOLOGY METHOD 06/16/2024 10:38 AM [facility] Monocytes Relative 6.0 % LAB HEMETOLOGY METHOD 06/16/2024 10:38 AM EST [facility] Eosinophils Relative 0.9 % LAB HEMETOLOGY METHOD 06/16/2024 10:38 AM [facility] Basophils Relative 0.1 % LAB HEMETOLOGY METHOD 06/16/2024 10:38 AM [facility] Immature Granulocytes Relative 1.4 % LAB HEMETOLOGY METHOD 06/16/2024 10:38 AM [facility] Neutrophils Absolute 17.31(H) 1.50 - 7.00 K/mcL LAB HEMETOLOGY METHOD 06/16/2024 10:38 AM [facility] Lymphocytes Absolute 1.83 1.00 - 5.00 K/mcL LAB HEMETOLOGY METHOD 06/16/2024 10:38 AM [facility] Monocytes Absolute 1.25(H) 0.20 - 1.00 K/mcL LAB HEMETOLOGY METHOD 06/16/2024 10:38 AM [facility] Eosinophils Absolute 0.19 0.00 - 0.50 K/mcL LAB HEMETOLOGY METHOD 06/16/2024 10:38 AM [facility] Basophils Absolute 0.03 0.00 - 0.20 K/mcL LAB HEMETOLOGY METHOD 06/16/2024 10:38 AM [facility] Immature Granulocytes Absolute 0.29(H) 0.00 - 0.03 K/mcL LAB HEMETOLOGY METHOD 06/16/2024 10:38 AM [facility] Blood Venous blood specimen / Unknown Venipuncture / Unknown 06/16/2024 7:12 AM EST 06/16/2024 9:01 AM EST us Audi Luke MD LAB BLOOD ORDERABLES Final Resul t [facility] [address] [place] [address], [place] [phone] * (ABNORMAL) C-reactive protein (06/16/2024 7:12 AM EST) [facility] C-Reactive Protein 0.96(H) <=0.50 mg/dL LAB CHEMISTRY METHOD 06/16/2024 11:19 AM EST [facility] Blood Venous blood specimen / Unknown Venipuncture / Unknown 06/16/2024 7:12 AM EST 06/16/2024 9:01 AM EST us Audi Luke MD LAB BLOOD ORDERABLES Final Resul t [facility] [address] [place] [address], [place] [phone] * (ABNORMAL) Comprehensive metabolic panel (06/16/2024 7:12 AM EST) [facility] Sodium 141 133 - 145 mmol/L LAB CHEMISTRY METHOD 06/16/2024 11:19 AM [facility] Potassium 4.3 3.5 - 5.5 mmol/L LAB CHEMISTRY METHOD 06/16/2024 11:19 AM [facility] Chloride 103 96 - 110 mmol/L LAB CHEMISTRY METHOD 06/16/2024 11:19 AM [facility] CO2 31 21 - 32 mmol/L LAB CHEMISTRY METHOD 06/16/2024 11:19 AM [facility] Anion Gap 7 3 - 11 LAB CHEMISTRY METHOD 06/16/2024 11:19 AM [facility] Glucose 56(L) 70 - 100 mg/dL LAB CHEMISTRY METHOD 06/16/2024 11:19 AM [facility] BUN 40(H) 5 - 25 mg/dL LAB CHEMISTRY METHOD 06/16/2024 11:19 AM [facility] Creatinine 1.46(H) 0.50 - 1.10 mg/dL LAB CHEMISTRY METHOD 06/16/2024 11:19 AM [facility] eGFR 36(L) >=60 mL/min/1. 73m2 LAB CHEMISTRY METHOD 06/16/2024 11:19 AM [facility] Comment:Calculation based on the Chronic Kidney Disease Epidemiology Collaboration (CKD-EPI) equation refit without adjustment for race. BUN/Creatinine Ratio 27.4 LAB CHEMISTRY METHOD 06/16/2024 11:19 AM [facility] Calcium 10.0 8.5 - 10.5 mg/dL LAB CHEMISTRY METHOD 06/16/2024 11:19 AM [facility] AST (SGOT) 22 10 - 42 unit/L LAB CHEMISTRY METHOD 06/16/2024 11:19 AM [facility] ALT (SGPT) 26 10 - 60 unit/L LAB CHEMISTRY METHOD 06/16/2024 11:19 AM [facility] Alkaline Phosphatase 70 42 - 121 unit/L LAB CHEMISTRY METHOD 06/16/2024 11:19 AM [facility] Total Protein 5.6(L) 6.0 - 8.0 g/dL LAB CHEMISTRY METHOD 06/16/2024 11:19 AM [facility] Albumin 2.9(L) 3.2 - 5.0 g/dL LAB CHEMISTRY METHOD 06/16/2024 11:19 AM [facility] Total Bilirubin 0.5 0.0 - 1.4 mg/dL LAB CHEMISTRY METHOD 06/16/2024 11:19 AM [facility] Blood Venous blood specimen / Unknown Venipuncture / Unknown 06/16/2024 7:12 AM EST 06/16/2024 9:01 AM EST us Audi Luke MD LAB BLOOD ORDERABLES Final Resul t [facility] [address] [place] [address], [place] [phone] documented in this encounter Visit Diagnoses Diagnosis Cold autoimmune hemolytic anemia ([facility] V24, [facility] V28) Autoimmune hemolytic anemias Hyperkalemia Hyperpotassemia Heart failure, unspecified ([facility] V24, [facility] V28) Heart failure, unspecified Chronic obstructive pulmonary disease, unspecified ([facility] V24, [facility] V28) Chronic kidney disease, unspecified Type 2 diabetes mellitus without complications ([facility] V24, [facility] V28) Essential (primary) hypertension Unspecified essential hypertension documented in this encounter Care Teams Reducing Machine Operator Relationship Specialty Start Date End Date Teofilo Moreno MD [address] [place] [phone] PCP - General Internal Medicine 07/01/24 documented as of this encounter
--- OUTSIDE RECORDS SUMMARY | 2025-06-16 07:44 | XMS_ITS | Encounter Summary ---
Author Organization [facility] Address [address] [place] [address] Care Team Providers Care Ambulance Mechanic Name Role Phone Teofilo Moreno MD Primary Care Provider [phone] Reason for Visit * Reason Comments home health cert Start of Care Date: 07/03/24Date of certification period: 07/03/24-08/31/24Date of service = signature date 07/14/24ospice patient: [facility] Agency: [facility] Encounter Details Date Type Department Care Team (Late st Contact Info) Description 07/30/2024 Billing Patient Not Present Adult Medicine [address] [phone] Teofilo Moreno MD [address] [place] [address] COPD with acute exacerbation (CMS/HCC V24, CMS/HCC [...] unspecified whether stage 3a or 3b CKD ([facility] [place]24, [facility] V28); Hyperkalemia; Gastroesophageal reflux disease without esophagitis; shelter (current) use of insulin ([facility] [place]24, [facility] V28); Other specified rheumatoid arthritis, multiple sites ([facility] V24, [facility] V28); Other emphysema ([facility] V24, [facility] V28); Hypomagnesemia; Hyperlipidemia, unspecified hyperlipidemia type; Pulmonary hypertension, unspecified ([facility] V24, [facility] V28); shelter (current) use of aspirin Social History Tobacco [...] 07/27/2025 2:15 PM EST Office Visit Endocrinology [address] [phone] Gladys Sow PA [address] [place] [address] 08/03/2025 3:00 PM EST Office Visit Nephrology - [address] [phone] Bharath Gonsalez MD [address] [facility] [address] [place] [address] 08/17/2025 2:30 PM EST Office Visit Adult Medicine [address] [phone] Frantz Martinez PA [address] [place] [address] documented as of this encounter Visit Diagnoses Diagnosis COPD with acute exacerbation ([facility] [place]24, [facility] V28)- Primary Acute respiratory failure with hypoxia ([facility] V24, [facility] V28) Other disorders of lung Acquired hemolytic anemia, unspecified ([facility] V[facility], [facility] V28) Acquired hemolytic anemia, unspecified 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 ([facility] [place]24, [facility] V28) Essential (primary) hypertension Unspecified essential hypertension Diastolic congestive heart failure, unspecified HF chronicity ([facility] V24, [facility] V28) Heart failure, unspecified HF chronicity, unspecified heart failure type ([facility] V24, [facility] V28) Mild persistent asthma without complication Stage 3 chronic kidney disease, unspecified whether stage 3a or 3b CKD ([facility] V24, [facility] V28) Hyperkalemia Hyperpotassemia Gastroesophageal reflux disease without esophagitis Esophageal reflux shelter (current) use of insulin ([facility] V24, [facility] V28) Other specified rheumatoid arthritis, multiple sites ([facility] V24, [facility] V28) Other emphysema ([facility] V24, [facility] V28) Other emphysema Hypomagnesemia Disorders of magnesium metabolism Hyperlipidemia, unspecified hyperlipidemia type Pulmonary hypertension, unspecified ([facility] [place], [facility] V28) shelter (current) use of aspirin documented in this encounter Care Teams Ambulance Mechanic Relationship Specialty Start Date End Date Teofilo Moreno MD [address] [place] [phone] PCP - General Internal Medicine 07/01/24 documented as of this encounter
--- OUTSIDE RECORDS SUMMARY | 2025-06-16 07:44 | XMS_ITS | Data Portability ---
Author Organization [facility], Main Office Address [address] [facility] [place] [address] Care Team Providers Care Hall Coordinator Name Role Phone WAGNER RAMIREZ - 3RD FLOOR OTHER KENISHA PARSONS Primary Care Provider [phone] Assessment No assessment recorded. Plan of Treatment [...] By Organization Details Last Modified Time 06/16/2024 [id number] medicines to avoid with kidney disease: care instructions Not available 06/16/2024 12:15:35 Reason for Referral None Reported. Problems Name Problem SNOMED Code Status Onset Date Resolution Date Notes Provider Name and Address Organization Details Recorded Time Asthenia 47214842 Active 2023 MARIBEL BLANCHARD NP [address] [facility], [address], [place], [address], [facility] 4 11:18:54 Chronic obstructiv e pulmonary disease 77731097 Active 2023 MARIBEL BLANCHARD NP [address] [facility], [address], [place], [address], [facility] 4 11:19:06 Asthma 091735089 Active 2023 MARIBEL BLANCHARD NP [address] [facility], [address], [place], [address], [facility] 4 11:19:15 Hypertensi ve disorder 43545105 Active 2023 MARIBEL BLANCHARD NP [address], [address], [place], [address], [facility] 4 11:19:23 Insulin treated type 2 diabetes mellitus 331590647 Active 2023 MARIBEL BLANCHARD NP [address], [address], [place], [address], [facility] 4 11:19:52 Heart failure with normal ejection fraction 908127766 Active 2023 MARIBEL BLANCHARD NP [address], [address], [place], [address], [facility] 4 11:20:11 Severe pulmonary hypertensi on 979732854 Active 2023 MARIBEL BLANCHARD NP [address] [facility], [address], [place], [address], [facility] 4 11:20:24 Rheumatoid arthritis 81233461 Active 2023 on chronic prednisone MARIBEL BLANCHARD NP [address] [facility], [address], [place], [address], [facility] 4 11:21:07 Chronic anemia 742719175 Active 2023 followed by Hematology , Dr. Roddy BLANCHARD NP [address], [place], [address], [facility] 4 11:23:40 Hyperlipid emia 52296610 Active 2023 MARIBEL BLANCHARD NP [address] [facility], [address], [place], [address], [facility] 4 11:21:27 Chronic kidney disease stage 3 372663982 Active 2023 MARIBEL BLANCHARD NP [address], [place], [address], [facility] 4 11:30:57 Acute respirator y failure 12880039 Active 2023 MARIBEL BLANCHARD NP [address], [address], [place], [address], [facility] 4 11:31:20 Gastroesop hageal reflux disease without esophagiti s 038148877 Active 2023 MARIBEL BLANCHARD NP [address] [facility], [address], [place], [address], [facility] 4 12:13:02 Aspirin therapy finding 730280523 Active 2023 MARIBEL BLANCHARD NP [address], [address], [place], [address], [facility] 4 12:13:26 Hypomagnes emia 565241926 Active 2023 MARIBEL BLANCHARD NP [address] [facility], [address], [place], [address], [facility] 4 12:13:44 Problem Notes None recorded. Medical Equipment None Reported. Allergies Allergen ID Allergen Name Allergen Category Reaction Reaction Severity Criticality Documentation Date Start Date Code Code System Note Provider Name and Address Organization Details Recorded Time 06071 Lasix medicatio n Not available Not available Not available 06/16/2024 04204 1 RxNorm MARIBEL BLANCHARD NP [address] [facility], [address], [place], [address], [facility] 4 11:18:20 72788 Vasotec medicatio n Not available Not available Not available 06/16/2024 59407 1 RxNorm MARIBEL BLANCHARD NP [address] [facility], [address], [place], [address], [facility] 4 11:18:06 36617 pineapple extract food Not available Not available Not available 06/16/2024 05833 74 RxNorm MARIBEL BLANCHARD NP [address] [facility], [address], [place], [address], [facility] 4 11:18:12 [address]259 latex environme nt,medica tion Not available Not available Not available 06/16/2024 64788 91 RxNorm MARIBEL BLANCHARD NP [address] [facility], [address], [place], [address], [facility] 4 11:18:26 Vitals Date Recorded Heart rate Respiratory rate Body temperature Oxygen saturation Oxygen saturation in Arterial blood by Pulse oximetry Systolic And Diastolic Provider Name and Address Organization Details Last Updated DateTime 4 80 /min 18 /min 98.2 [degF] 97 % 97 % 135/72 mm[Hg] MARIBEL BLANCHARD NP [address] [facility], [facility] [address], [place], [address], [facility] 4 11:12:07 Date Recorded Body height Body mass index (BMI) Body weight Heart rate Respiratory rate Body temperature Oxygen saturation Oxygen saturation in Arterial blood by Pulse oximetry Systolic And Diastolic Provider Name and Address Organization Details Last Updated DateTime 4 152.4 cm 30.5 kg/m2 08928.4 1 g 60 /min 18 /min 98 [degF] 97 % 97 % 144/69 mm[Hg] Tracie Arango MD [address] [place] [address], [place], [address], [facility] 4 17:29:35 Date Recorded Body height Body mass index (BMI) Body weight Heart rate Respiratory rate Body temperature Oxygen saturation Oxygen saturation in Arterial blood by Pulse oximetry Systolic And Diastolic Provider Name and Address Organization Details Last Updated DateTime 4 152.4 cm 30 kg/m2 99379.7 9 g 68 /min 16 /min 97.2 [degF] 98 % 98 % 132/67 mm[Hg] Tracie Arango MD [address] [place] [address], [facility] [address], [place], [address], [facility] 4 13:49:38 Social History Question Answer Notes LastModified by Organizat ion Details LastModified Time Tobacco Smoking Status Former Smoker quit 1984 Tracie Arango MD [address] [place] [address], [facility] [address], [place], [address], [facility] 06/19/2024 19:56:29 Do You Have An [...] Do You Have A Medical Power Of Learning And Development Consultant? Yes Has HCP [email or web address] Information not available 06/16/2024 What Was The [...] use any illicit or recreational drugs? No [email or web address] Information not available 06/16/2024 Do you or have you ever used any other forms of tobacco or nicotine? No [email or web address] Information not available 06/16/2024 What is your level of alcohol consumption? None Information not available 06/16/2024 Mental Status None recorded. Family History Relationship Description Onset Age of this Age Resolved Age Notes LastModified by Organization Details LastModified Time Mother Harmful pattern of use of alcohol [email or web address] Not available 2023 11:52:31 Medical History No medical history recorded. Gynecological HistoryNo gynecological history recorded. Obstetrics History GPAL:G 0 P 0 0 0 0 Immunizations Vaccine Type Date Status Note Provider Nam e and Address Organization Details Recorded Time Tdap 3 completed Chloé Mar [facility] 06/16/2024 14:03:38 Td(adult) unspecified formulation 4 completed Chloé Mar [facility] 06/16/2024 14:03:59 Td(adult) unspecified formulation 7 completed Chloé Mra [facility] 06/16/2024 14:04:08 pneumococcal polysaccharide PPV23 6 completed Chloé Mar [facility] 06/16/2024 14:04:29 pneumococcal polysaccharide PPV23 9 completed [facility] 06/16/2024 14:04:39 influenza, unspecified formulation 2 completed [facility] 06/16/2024 14:04:55 influenza, unspecified formulation 4 completed [facility] 06/16/2024 14:05:03 Past Encounters Encounter ID Performer Location Encounter Start Date Encounter Closed Date Diagnosis/Indication Diagnosis SNOMED-CT Code Diagnosis ICD10 Code Diagnosis IMO Codes Diagnosis Note [id number] MARIBEL BLANCHARD NP [facility] [address] [facility] [place] [address] 06/16/2024 11:11:14 06/17/2024 08:48:38 Asthenia 69032678 R53.1 Deconditio jose due to recent hospitaliz ation and acute illnessPT OT eval and tx.Goal is to return home. Chronic ob structive pulmonary disease 34560678 J44.9 And asthmaSee above.Cont inue:Slow prednisone taper - 5 mg qd in May, then 2.5 mg qd in Jun., then stopPRN Robitussin DMPRN albuterol nebs and MDIMonitor resp. status. Acute resp iratory failure 32917492 J96.00 Multifacto rial - COPD, CHF, and [...] Heart fail ure with normal ejection fraction 935822267 I50.33 See above.Cont inue lasix 20 mg qdMonitor VS, LS, sats, CP status, labs for decompensa tion Chronic anemia 346036961 D64.9 Hgb 6.3 upon admit to [facility] by [facility] outpt.Dr. Patino non compliant [...] Roddy brandt concerns Severe pul monary hypertension 295483432 I27.20 CV meds as above Insulin tr eated type 2 diabetes mellitus 552047804 Z79.4 Continue:L antus 16 units dailyNovol og SSI with mealsMonit or BS and adjust meds prn Hypertensive disorder 38 594157 I10 Continue home meds:Verap celia ER 240 mg qdLosartan 25 mg qdHydralaz ine 10 mg tidAdded lasix 20 mg qd in the hospitalTr end VS daily, BMP q Saturday, adjust meds prn Chronic ki dney disease stage 3 430830859 N18.30 Bump in Creat, with IV diuresis in hosp., now improved, back to baseline (1.46)Now on lasix 20 mg qd, losartan resumed upon d/cMaintai n hydrationB MP q Saturday to monitor Rheumatoid arthritis 698 14930 M06.9 No joint pain at present except chronic left elbow.On daily prednisone for COPD, suspect she is getting some benefit from this.APAP available prnMonitor Hyperlipidemia 49809913 E78.5 Continue pravastati n 20 mg qd Aspirin th erapy finding 578918093 Z79.82 On ASA 81 mg qd, unsure as to why, ? benefit in 83 yo elder, but will defer decision to PCP Hypomagnesemia 078376228 E83.42 On Mag Ox 400 mg bidCheck Mg level q Saturday, adjust as needed [id number] Tracie Arango MD [address] [address] 06/19/2024 17:02:55 2024 11:50:08 Asthenia 18147583 R53.1 Very deconditio jose.Needs PT/OT for strengthen ing, balance, gait training, safety and function.C ontinue fall precaution s.Monitor for safety. Acute resp iratory failure 13024633 J96.00 As above. Chronic ob structive pulmonary disease 66415354 J43.8 COPD/asthm a crossover syndrome.C ontinue slow prednisone taper 5 mg qd until 06/28 then 2.5 mg qd x 1 month and then d/c., she has been on prednisone chronicall y for RA, but tapering off.PRN Robitussin DMPRN albuterol nebs and MDIMonitor resp. status. Heart fail ure with normal ejection fraction 797425889 I50.33 Appears euvolemic. Continue meds as above.Abby tor resp. status, fluid status, wts and labs. Hypertensive disorder 38 023389 I10 In good control since here.Shay nue verapamil ER 240 mg qd, losartan 25 mg qd, hydralazin e 10 mg TID, and lasix 20 mg qd.Monitor BP and labs Chronic anemia 089613781 D64.89 Hgb 6.3 upon admit to [facility] by Heme outpt., Dr. Patino non [...] heme as planned. Severe pul monary hypertension 844408747 I27.29 Med and f/u as above. Insulin tr eated type 2 diabetes mellitus 245158078 E11.22 In good control since here.Sahy nue Lantus 16U qd and SSI.Monito r fingerstic ks TID and HgA1C q 3 months. Chronic ki dney disease stage 3 248779606 N18.32 Back to baseline.C ontinue to avoid nephrotoxi c meds as able.Monit or labs.Renal f/u as planned. Rheumatoid arthritis 698 18758 M06.89 Stable at this time.Shay nue prednisone taper as above and APAP 650 mg q 4 hrs prn.Monito r sxs. Hyperlipidemia 52907993 E78.49 Continue pravastati n 20 mg qd and ASA 81 mg qd.Monitor labs as outpt. Hypomagnesemia 241414254 E83.42 Continue Mag Ox 400 mg BID.Monito r Mg weekly. [id number] Tracie Arango MD [address] [address] 06/30/2024 13:45:24 07/01/2024 10:43:59 Chronic obstructive pulmonary disease 39424494 J43.8 COPD/asthm a crossover syndrome.C ontinue slow prednisone taper 2.5 mg qd x 1 month (end date 07/28) and then d/c., she has been on prednisone chronicall y for RA, but tapering off.Contin ue albuterol nebs/I prn for sxs.F/U with PCP Asthenia 54864246 R53.1 Much improved.C an continue PT/OT at home for further strengthen ing, balance, safety and function.F /U with PCP Chronic anemia 762503319 D64.89 Stable since here.Sl. drop yesterdayC ontinue Fe 325 mg BID with meals along with Vit C 500 mg qd for absorption .Continue colace qd to prevent constipati on.Monitor labs as outpt.F/U with heme as planned. Hypertensive disorder 38 014961 I10 Has been in good control while here.Shay nue verapamil ER 240 mg qd, losartan 25 mg qd, hydralazin e 10 mg TID, and lasix 20 mg qd.F/U with PCP as outpt. Heart fail ure with normal ejection fraction 419332526 I50.33 Continues to appear euvolemic. Continue meds as above.F/U as outpt. Severe pul monary hypertension 028406387 I27.29 Med and f/u as above. Acute resp iratory failure 19967719 J96.00 As above. Insulin tr eated type 2 diabetes mellitus 691087442 E11.22 In good control since here.Shay nue Lantus 16U qd and SSI.F/U as outpt. Chronic ki dney disease stage 3 480316857 N18.32 Remains at baseline.C ontinue to avoid nephrotoxi c meds as able.Monit or labs.Renal and PCP f/u as planned. Rheumatoid arthritis 698 92675 M06.89 Stable at this time.Shay nue prednisone taper as above and APAP 650 mg q 4 hrs prn.F/U with rheum and PCP as outpt. Hyperlipidemia 96595684 E78.49 Continue pravastati n 20 mg qd and ASA 81 mg qd.Monitor labs as outpt. Hypomagnesemia 653938175 E83.42 Remains WNL on current supplement .Continue [...] Member ID Guarantor Name 06/30/2024 1 [facility] - DOS ON OR AFTER 2022 - MEDICARE ADVANTAGE [place] (MEDICARE REPLACEMENT/AD VANTAGE - PPO) Leann Almanzar [id number] Leann Almanzar Notes Date Note Type Note Provider Name and Address Organization Details Recorded Time 4 text/html Leann is seen today for initial intake.She is an 83 yo lady, admitted to [facility] 06/15/24 from [facility] for continued care and rehab after a brief hospitalization due to COPD exacerbation. She presented to [facility] 06/06/24 with 3 days of worsening SOB. [...] RA on chronic prednisone, chronic anemia, HLD, [id number]: full code, no dialysis MARIBEL BLANCHARD NP [address] [facility], [address], [place], [address], [facility] 06/16/2024 12:16:06 4 text/html This is an 83 yo woman who is here for rehab after an acute hospitalization for a COPD exacerbation and severe anemia.She presented to the [facility] ED on 06/06 with worsening SOB and [...] function worsening.Echocardiogram showed EF of 55-60% with [id number] aortic valve stenosis, small loculated pericardial effusion overlying the left ventricle, abnormal diastolic function. Weaned to room air and started on low-dose Lasix She was transferred here on 06/15.Since here she has been working with rehab and improving.I see her with a greek speaking staff member.She says she is feeling better and getting some strength back. Her PMH includes HTN, asthma/COPD crossover, AODM, CHF pEF, severe pulmonary HTN, CKD stage 3, anemia, HLD, and RA on chronic prednisone. Tracie Arango MD [address] [facility], [address], [place], [address], [facility] 06/30/2024 13:43:36 4 text/html I am seeing this 83 yo woman today in anticipation fo rd/c later today.She was admitted on 06/15 after a hospitalization for COPD exacerbation and severe anemia. She presented to the [facility] ED on 06/06 with worsening SOB and [...] on chronic prednisone. Tracie Arango MD [address] [facility], [address], [place], [address], [facility] 06/30/2024 14:32:06 OBGyn Episode No OBEpisode recorded.
--- OUTSIDE RECORDS SUMMARY | 2025-06-16 07:44 | XMS_ITS | Encounter Summary ---
Author Organization [facility] Address [address] [place] [address] Care Team Providers Care Diesel Service Apprentice Name Role Phone Teofilo Moreno MD Primary Care Provider [phone] Encounter Details Date Type Department Care Team (Late Contact Info) Description 12/11/2024 Billing Patient Not Present Adult Medicine [address] [phone] Teofilo Moreno MD [address] [place] [address] Social History Tobacco Use Types Packs/Day Years [...] Description 07/27/2025 2:15 PM EST Office Visit [address] [phone] Gladys Sow PA [address] [place] [address] 08/03/2025 3:00 PM EST Office Visit Nephrology - [address] [place] [address] Bharath Gonsalez MD [address] [place] [address] 08/17/2025 2:30 PM EST Office Visit Adult Medicine [address] [phone] Frantz Martinez PA [address] [place] [address] documented as of this encounter Visit Diagnoses Not on filedocumented in this encounter Care Teams Diesel Service Apprentice Relationship Specialty Start Date End Date Teofilo Moreno MD [address] [place] [address] PCP - General Internal Medicine 07/01/24 documented as of this encounter
--- OUTSIDE RECORDS SUMMARY | 2025-06-16 07:44 | XMS_ITS | Encounter Summary ---
Author Organization [facility] Address [address] [place] [address] Care Team Providers Care Multimedia Teacher Name Role Phone Teofilo Moreno MD Primary Care Provider Encounter Details Date Type Department Care Team (Late Contact Info) Description 07/04/2024 Lab Requisition [facility] - Main Lab [address] [facility] [place] [address] Audi Luke MD [address], [address] Essential (primary) hypertension; Anemia, unspecified; [...] 2:15 PM EST Office Visit Endocrinology - [place] [address] [place] [address] Gladys Sow PA [address] [place] [address] 08/03/2025 3:00 PM EST Office Visit Nephrology - [address] [place] [address] Bharath Gonsalez MD [address] [place] [address] 08/17/2025 2:30 PM EST Office Visit Adult Medicine [address] [phone] Frantz Martinez PA [address] [place] [address] documented as of this encounter Visit Diagnoses Diagnosis Essential (primary) hypertension Unspecified essential hypertension Anemia, unspecified Chronic obstructive pulmonary disease, unspecified (CMS/HCC V24, CMS/HCC V28) documented in this encounter Care Teams Multimedia Teacher Relationship Specialty Start Date End Date Teofilo Moreno MD [address] [place] [address] PCP - General Internal Medicine 07/01/24 documented as of this encounter
--- OUTSIDE RECORDS SUMMARY | 2025-06-16 07:44 | XMS_ITS | Encounter Summary ---
Author Organization [facility] Address [address] [place] [address] Care Team Providers Care Weatherization Administrator Name Role Phone Teofilo Moreno MD Primary Care Provider Encounter Details Date Type Department Care Team (Late Contact Info) Description 07/10/2024 Lab Requisition [facility] - Main Lab [address] [facility] [place] [address] Audi Luke MD [address], [phone] Essential (primary) hypertension; Anemia, unspecified; [...] 2:15 PM EST Office Visit Endocrinology - [place] [address] [place] [phone] Gladys Sow PA [address] [place] [address] 08/03/2025 3:00 PM EST Office Visit Nephrology - [place] [address] [place] [address] Bharath Gonsalez MD [address] [place] [address] 08/17/2025 2:30 PM EST Office Visit Adult Medicine [address] [phone] Frantz Martinez PA [address] [place] [address] documented as of this encounter Visit Diagnoses Diagnosis Essential (primary) hypertension Unspecified essential hypertension Anemia, unspecified Chronic obstructive pulmonary disease, unspecified (CMS/HCC V24, CMS/HCC V28) documented in this encounter Care Teams Weatherization Administrator Relationship Specialty Start Date End Date Teofilo Moreno MD [address] [place] [address] PCP - General Internal Medicine 07/01/24 documented as of this encounter
[2025-06-18 05:09] LABS: Quantiferon TB Gold Plus 1 NEGATIVE (NEGATIVE); TB Test (QFT) Mitogen -Nil 9.03 IU/mL; TB Test (QFT) Nil 0.02 IU/mL; TB Test (QFT) Plus TB1 -Nil 0.00 IU/mL; TB Test (QFT) Plus TB2 -Nil 0.01 IU/mL
== END 2025-06-15 13:55 | disposition home or self-care (01) ==
LOC: HO.LAB 13:54
PROVIDERS: PCP Internal Medicine; Visit Provider Internal Medicine Rheumatology
DX: M05.89 Other rheumatoid arthritis with rheumatoid factor of multiple sites (principal)
CPT/HCPCS: 36415; 82565; 84450; 84460; 85025; 85652; 86140; 86480